=== PATIENT | female | born 2000 | race Caucasian/White ===

== ENCOUNTER 2020-07-16 13:14 | Emergency (ER) | payer OTHER ==
[~2020-07-16] VITALS: Ht 162.6 cm; Wt 56.0 kg
[~2020-07-16 13:14] MED LIST: AMOX500T PO; BUPR75TA5; CIPR-249 PO; CYPR4TA PO; ESCI10TA16 PO; FLAG500T PO; ISIB1TAB; KETO10TAB PO; LEVONOR/ETHI; LEVONOR/ETHI PO; MACR100C43 PO; NAPR-837 PO; NAPR-885; OMEP-218; PREN29TA4 PO; PYRI1TAB5 PO; REGL10TA6 PO; ROBA500T PO; SIME180C25 PO; SPIN1SUS EX; TRI-TAB PO
[2020-07-16 13:15] VITALS: BP 126/74
[2020-07-16] MEDS ORDERED: HYDR50TA70 (13:21)
[2020-07-16] MEDS ORDERED: ACETAMINOPHEN 500 MG TAB PO ONE (15:05)
[2020-07-16 15:22] LABS: BASO # 0.1 10^3/uL (0.0-0.2); BASO % 0.7 % (0.0-1.0); EOS # 0.3 10^3/uL (0.0-0.5); EOS % 3.4 % (0.0-3.0); HEMATOCRIT 45.7 % (36.0-47.0); HEMOGLOBIN 15.1 g/dl (12.0-15.5); LYMPH # 1.7 10^3/uL (1.5-5.0); LYMPH % 23.7 % (24.0-44.0); MEAN CORPUSCULAR HEMOGLOBIN 29.4 pg (27.0-33.0); MEAN CORPUSCULAR VOLUME 89.1 fl (80.0-96.0); MONO # 0.5 10^3/uL (0.0-0.8); MONO % 6.7 % (2.0-8.0); NEUTROPHILS # 4.8 10^3/uL (1.5-8.5); NEUTROPHILS % 65.2 % (36.0-66.0); PLATELET COUNT, AUTOMATED 301 10^3/uL (150-450); RED BLOOD COUNT 5.13 10^6/uL (4.00-5.40); WHITE BLOOD COUNT 7.3 10^3/uL (4.0-10.0)
[2020-07-16 15:25] LABS: ALBUMIN 4.4 GM/DL (3.2-5.2); ALT/SGPT 15 U/L (12-78); BILIRUBIN,DIRECT 0.1 MG/DL (0.0-0.2); BILIRUBIN,TOTAL 0.7 MG/DL (0.2-1.0); LIPASE 82 U/L (73-393); TOTAL PROTEIN 7.6 GM/DL (6.4-8.2)
--- NOTE | 2020-07-16 15:27 | REP ---
INDICATION: suprapubic abd pain COMPARISON: None. TECHNIQUE: Supine view of the abdomen and pelvis. FINDINGS: Bowel gas pattern is nonspecific and without obstruction or perforation. No organomegaly. No abnormal calcifications. Skeletal structures intact. IMPRESSION: Normal abdominal radiograph. <Electronically signed by Sami Alfredo > 07/16/20 1522
[2020-07-16 16:24] LABS: BLOOD UREA NITROGEN 15 MG/DL (7-18); CARBON DIOXIDE LEVEL 26 MEQ/L (21-32); CHLORIDE LEVEL 106 MEQ/L (98-107); CREATININE FOR GFR 0.79 MG/DL (0.55-1.30); GLUCOSE, FASTING 91 MG/DL (70-100); SODIUM LEVEL 140 MEQ/L (136-145)
[2020-07-16 16:53] LABS: CHLAMYDIA DNA AMPLIFICATION NEGATIVE (NEGATIVE); GC DNA AMPLIFICATION NEGATIVE (NEGATIVE)
--- NOTE | 2020-07-16 16:57 | REP ---
INDICATION: lower abd/pelvic pain COMPARISON: None. TECHNIQUE: Transabdominal pelvic ultrasound with color Doppler evaluation of the ovaries. FINDINGS: Bladder is collapsed and currently measures 5.9 x 1.7 x 2.6 cm Normal anteverted uterus measures 6.6 x 3.5 x 4.9 cm. The endometrial complex measures 5.8 mm thickness. No discrete uterine or endometrial abnormalities are appreciated. Bilateral ovaries are normal in appearance and vascularity without evidence for torsion. Right ovary measures 1.8 x 3.1 x 1.9 cm; R I = 0.54. Left ovary measures 1.9 x 1.5 x 1.6 cm; R I = 0.53. No pelvic fluid or adnexal mass lesion IMPRESSION: Normal pelvic ultrasound <Electronically signed by Sami Alfredo > 07/16/20 [id number]
== END 2020-07-16 17:31 | disposition home or self-care (01) ==
LOC: MERGE 13:14 → M ED 13:14
DX: R10.9 Unspecified abdominal pain (principal); R31.29 Other microscopic hematuria; F17.200 Nicotine dependence, unspecified, uncomplicated; Z86.19 Personal history of other infectious and parasitic diseases

== ENCOUNTER 2020-07-24 00:43 | Emergency (ER) | payer OTHER ==
[~2020-07-24] VITALS: Ht 162.6 cm; Wt 55.9 kg
[~2020-07-24 00:43] MED LIST changes: +HYDR50TA70
[2020-07-24] MEDS ORDERED: CEFD1CAP8 (01:06)
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
[2020-07-24 03:51] VITALS: BP 143/85
== END 2020-07-24 03:56 | disposition home or self-care (01) ==
LOC: M ED 00:43
DX: R51.9 Headache, unspecified (principal); M54.5 Low back pain; Y04.8XXA Assault by other bodily force, initial encounter; Y92.410 Unspecified street and highway as the place of occurrence of the external cause; F17.210 Nicotine dependence, cigarettes, uncomplicated; F12.20 Cannabis dependence, uncomplicated

== ENCOUNTER 2020-08-09 17:39 | Emergency (ER) | payer OTHER ==
[~2020-08-09] VITALS: Ht 162.6 cm; Wt 55.3 kg
[~2020-08-09 17:39] MED LIST changes: +CEFD1CAP8
[2020-08-09] MEDS ORDERED: ONDANSETRON 4 MG ORAL DISINTEGRATING TAB PO ONE (19:20)
[2020-08-09] MEDS ORDERED: ACETAMINOPHEN 325 MG TAB PO ONE (19:20)
[2020-08-09 19:39] LABS: BASO % 0.4 % (0.0-1.0); EOS # 0.2 10^3/uL (0.0-0.5); HEMATOCRIT 40.5 % (36.0-47.0); HEMOGLOBIN 12.9 g/dl (12.0-15.5); LYMPH # 1.6 10^3/uL (1.5-5.0); LYMPH % 20.9 % (24.0-44.0); MEAN CORPUSCULAR HEMOGLOBIN 29.3 pg (27.0-33.0); MEAN CORPUSCULAR HGB CONC 31.9 g/dl (32.0-36.5); MONO # 0.4 10^3/uL (0.0-0.8); MONO % 4.8 % (2.0-8.0); NEUTROPHILS # 5.4 10^3/uL (1.5-8.5); NEUTROPHILS % 71.5 % (36.0-66.0); PLATELET COUNT, AUTOMATED 262 10^3/uL (150-450); WHITE BLOOD COUNT 7.6 10^3/uL (4.0-10.0)
[2020-08-09 20:09] LABS: ALBUMIN 4.1 GM/DL (3.2-5.2); ALT/SGPT 15 U/L (12-78); BILIRUBIN,DIRECT 0.2 MG/DL (0.0-0.2); BILIRUBIN,TOTAL 0.6 MG/DL (0.2-1.0); TOTAL PROTEIN 6.8 GM/DL (6.4-8.2)
[2020-08-09] MEDS ORDERED: KETOROLAC TROMETHAMINE 10 MG TAB PO ONE (20:35)
[2020-08-09 20:36] LABS: CHLAMYDIA DNA AMPLIFICATION NEGATIVE (NEGATIVE); GC DNA AMPLIFICATION NEGATIVE (NEGATIVE)
[2020-08-09] MEDS ORDERED: diphenhydrAMINE 25MG CAP PO ONE (20:45)
--- NOTE | 2020-08-09 21:36 | REPVR ---
PROCEDURE INFORMATION: Exam: US Nonobstetric Pelvis; Complete Exam date and time: 08/09/2020 9:16 PM Age: 19 years old Clinical indication: Pelvic pain; Additional info: Abdominal pain pelvic/hx ovarian cysts TECHNIQUE: Imaging protocol: Transabdominal pelvic nonobstetric ultrasound. Complete exam. Real time ultrasound with image documentation. COMPARISON: US PELVIC NON-OB COMPLETE 07/16/2020 4:38 PM FINDINGS: Uterus/cervix: Uterus measures 7.5 x 3.5 x 3.5 cm. Endometrial echo complex measures 2.5 mm. Right adnexa: Right ovary measures 3.4 x 1.9 x 2.7 cm. Normal flow. Left adnexa: Left ovary measures 2.1 x 1.2 x 1.4 cm. Normal flow. Intraperitoneal space: No intraperitoneal fluid. Urinary bladder: Normal. IMPRESSION: Normal study. Electronically signed by: Francisco Tafoya On 08/09/2020 21:36:22 PM
[2020-08-09] MEDS ORDERED: ONDA4TAB6 PO (22:13)
[2020-08-09] MEDS ORDERED: KETO10TAB PO (22:13)
[2020-08-09 22:19] VITALS: BP 129/74
== END 2020-08-09 22:21 | disposition home or self-care (01) ==
LOC: M ED 17:39
DX: G43.909 Migraine, unspecified, not intractable, without status migrainosus (principal); N93.8 Other specified abnormal uterine and vaginal bleeding; F12.20 Cannabis dependence, uncomplicated; Z77.098 Contact with and (suspected) exposure to other hazardous, chiefly nonmedicinal, chemicals
CPT/HCPCS: 36415; 76856; 80047; 80076; 81001; 84702; 85025; 86780; 87210; 87661; 99284; Q0162

== ENCOUNTER 2020-08-16 17:33 | Emergency (ER) | payer OTHER ==
[~2020-08-16] VITALS: Ht 162.6 cm; Wt 56.8 kg
[~2020-08-16 17:33] MED LIST changes: +ONDA4TAB6 PO
[2020-08-16] MEDS ORDERED: METR-265 (18:00)
[2020-08-16 20:35] LABS: BASO % 0.4 % (0.0-1.0); EOS # 0.3 10^3/uL (0.0-0.5); EOS % 3.9 % (0.0-3.0); HEMATOCRIT 43.3 % (36.0-47.0); HEMOGLOBIN 13.7 g/dl (12.0-15.5); LYMPH % 29.3 % (24.0-44.0); MEAN CORPUSCULAR HEMOGLOBIN 29.5 pg (27.0-33.0); MEAN CORPUSCULAR HGB CONC 31.6 g/dl (32.0-36.5); MEAN CORPUSCULAR VOLUME 93.3 fl (80.0-96.0); MONO # 0.4 10^3/uL (0.0-0.8); MONO % 6.2 % (2.0-8.0); NEUTROPHILS # 4.2 10^3/uL (1.5-8.5); NEUTROPHILS % 59.9 % (36.0-66.0); PLATELET COUNT, AUTOMATED 242 10^3/uL (150-450); RED BLOOD COUNT 4.64 10^6/uL (4.00-5.40); WHITE BLOOD COUNT 6.9 10^3/uL (4.0-10.0)
[2020-08-16 21:06] LABS: ALBUMIN 4.2 GM/DL (3.2-5.2); ALT/SGPT 14 U/L (12-78); BILIRUBIN,TOTAL 0.5 MG/DL (0.2-1.0); BLOOD UREA NITROGEN 10 MG/DL (7-18); CALCIUM LEVEL 9.4 MG/DL (8.5-10.1); CARBON DIOXIDE LEVEL 29 MEQ/L (21-32); CHLORIDE LEVEL 109 MEQ/L (98-107); CREATININE FOR GFR 0.63 MG/DL (0.55-1.30); GLUCOSE, FASTING 83 MG/DL (70-100); POTASSIUM SERUM 4.4 MEQ/L (3.5-5.1); SODIUM LEVEL 142 MEQ/L (136-145); TOTAL PROTEIN 7.1 GM/DL (6.4-8.2)
[2020-08-16 21:07] LABS: HCG, SERUM QUALITATIVE NEGATIVE (NEGATIVE)
[2020-08-16 22:00] VITALS: BP 131/77
[2020-08-16 22:06] LABS: INR 1.03; PROTHROMBIN TIME 13.7 SECONDS (12.5-14.3)
[2020-08-16 22:07] LABS: PARTIAL THROMBOPLASTIN TIME 26.9 SECONDS (24.2-38.5)
[2020-08-16 22:10] LABS: D-DIMER QUANT < 270 ng/ml (<500)
[2020-08-16 22:26] LABS: AMPHETAMINES LEVEL URINE NEGATIVE (NEGATIVE); BARBITURATES URINE NEGATIVE (NEGATIVE); BENZODIAZEPINES URINE NEGATIVE (NEGATIVE); CANNABINOIDS URINE POSITIVE (NEGATIVE); COCAINE METABOLITE URINE NEGATIVE (NEGATIVE); METHADONE URINE NEGATIVE (NEGATIVE); OPIATES URINE NEGATIVE (NEGATIVE); PHENCYCLIDINE URINE NEGATIVE (NEGATIVE)
[2020-08-16 22:30] LABS: CK-MB VALUE MASS < 1.0 NG/ML (<3.6); CPK CREATINE PHOSPHOKINASE 31 U/L (26-192); MAGNESIUM LEVEL 1.7 MG/DL (1.8-2.4); MB/CK RELATIVE INDEX 3.23 (< OR =4); TROPONIN I < 0.02 NG/ML (< 0.10)
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
--- NOTE | 2020-08-18 07:41 | ECGEPIP ---
[facility] - ED Test Date: 2020-08-16 Pat Name: BRIANNE GALAN Department: Room: - Gender: Female [employer]: : [id number] Requested By: RENITA SELF PA-C Order Number: [id number] Reading MD: Ayden Umana Measurements Intervals Bly Rate: 47 P: 63 MD: 132 QRS: 56 QRSD: 90 T: 54 QT: 444 QTc: 392 Interpretive Statements Sinus bradycardia NO PRIORS FOR COMPARISON Electronically Signed on 08-18-2020 7:40:54 EDT by Ayden Umana
== END 2020-08-16 23:08 | disposition home or self-care (01) ==
LOC: M ED 17:33
DX: R55 Syncope and collapse (principal); F17.200 Nicotine dependence, unspecified, uncomplicated; F12.10 Cannabis abuse, uncomplicated

== ENCOUNTER → 2021-01-01 | Outpatient (REF) | payer OTHER ==
[~2021-01-01] MED LIST changes: +METR-265
[2021-01-01 22:11] LABS: HCG, SERUM QUANTITATIVE < 1.0 MIU/ML
[2021-01-01 22:13] LABS: HCG, SERUM QUALITATIVE NEGATIVE (NEGATIVE)
== END ==
LOC: M LAB REF 21:34
PROVIDERS: ATTEND Physician Assistant
DX: Z32.00 Encounter for pregnancy test, result unknown (principal)

== ENCOUNTER 2021-01-25 19:25 | Emergency (ER) | payer OTHER ==
[~2021-01-25] VITALS: Ht 162.6 cm; Wt 50.6 kg
--- OUTSIDE RECORDS SUMMARY | 2021-01-25 19:42 | CCD ---
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 recorded. Surgeries None recorded. Imaging None recorded. Vitals 09/18/2020 01:40PM TELEHEALTH 20 Height 64 in 08/19/2020 02:00PM SAME DAY 20 Height Weight BMI Blood Pressure 64 in 121 lbs 8 oz 20.9 kg/m2 106/69 mm[Hg] 06/27/2020 01:20PM ESTABLISHED [id number] Height Weight BMI Blood Pressure 64 in 279 lbs 16 oz 48.1 kg/m2 108/57 mm[Hg] 05/24/2020 01:40PM TELEHEALTH 20 Height 64 in 04/16/2020 01:50PM TELEHEALTH 20 Height 64 in 03/15/2020 02:00PM ESTABLISHED [id number] Height Weight BMI Blood Pressure 64 in 132 lbs 8 oz 22.7 kg/m2 115/74 mm[Hg] 02/01/2020 10:40AM ANNUAL EXAM Height Weight BMI Blood Pressure 64 in 133 lbs 9.6 oz 22.9 kg/m2 113/76 mm[Hg ]
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
--- OUTSIDE RECORDS SUMMARY | 2021-01-25 19:47 | CCD ---
Author Author [facility] Organization [facility] Address Unknown Phone Unavailable Support Name Relationship Address Phone YOVANNY OSBORNE Next Of Kin Unknown SHELLI SHAW Next Of Kin [id number] [place] [address] IESHA HARVEY Next Of [address] [place] [address] ANGELA STORY Next Of [address] [place] [address] IN[place] MOUND Next Of [address] [facility] [address] [place] [address] [place] Next [place] Kin [address] [place] [address] Laura Whatley Next Of Kin [address] [phone] UE Next Of Kin Unknown Unavailable ANGELA GALAN Next Of Kin [address] [phone] Evie Whatley Next Of Kin [address] [phone] [facility] Next Of Kin [address] [place] [address] [facility] Next Of Kin [address] [facility] [place] [address] Next Of Kin Unknown Unavailable CARA WALLS Next Of Kin [address] [place] [address] ANGELA GALAN ECON [address] [place] [address] Unavailable IESHA HARVEY ECON [address] [phone] Unavailable Brunson Cara ECON [address] [place] [address] [phone] Hai Whatley ECON [address] [place] [address] Care Team Providers Care Retention Manager Name Role Phone NO, PCP Unavailable Unavailable Bon Air, J Pham PA Unavailable Unavailable Bon Air, J Pham PA Unavailable Unavailable Bon Air, J Pham PA Unavailable Unavailable Bon Air, J Pham PA Unavailable Unavailable Bon Air, J Pham PA Unavailable Unavailable Bon Air, J Pham PA Unavailable Unavailable Bon Air, J Pham PA Unavailable Unavailable Bon Air, J Pham PA Unavailable Unavailable Bon Air, J Pham PA Unavailable Unavailable Bon Air, J Pham PA Unavailable Unavailable Bon Air, J Pham PA Unavailable Unavailable Bon Air, J Pham PA Unavailable Unavailable Bon Air, J Pham PA Unavailable Unavailable Bon Air, J Pham PA Unavailable Unavailable Bon Air, J Pham PA Unavailable Unavailable Bon Air, J Pham PA Unavailable Unavailable Bon Air, J Pham PA Unavailable Unavailable Bon Air, J Pham PA Unavailable Unavailable Bon Air, J Pham PA Unavailable Unavailable Bon Air, J Pham PA Unavailable Unavailable Bon Air, J Pham PA Unavailable Unavailable Bon Air, J Pham PA Unavailable Unavailable Heidi Head Unavailable [phone] Green MORTGAGE LOAN COUNSELOR MORTGAGE LOAN COUNSELOR, Vikki Unavailable Unavailable Green MORTGAGE LOAN COUNSELOR MORTGAGE LOAN COUNSELOR, Vikki Unavailable Unavailable Green MORTGAGE LOAN COUNSELOR MORTGAGE LOAN COUNSELOR, Vikki Unavailable Unavailable Green MORTGAGE LOAN COUNSELOR MORTGAGE LOAN COUNSELOR, Vikki Unavailable Unavailable Green MORTGAGE LOAN COUNSELOR MORTGAGE LOAN COUNSELOR, Vikki Unavailable Unavailable Jeffrey Moore MD Unavailable Unavailable Jeffrey Moore MD Unavailable Unavailable Jeffrey Moore MD Unavailable Unavailable Jeffrey Moore MD Unavailable Unavailable Jeffrey Moore MD Unavailable Unavailable Jeffrey Moore MD Unavailable Unavailable Jeffrey Moore MD Unavailable Unavailable Jeffrey Moore MD Unavailable Unavailable Jeffrey Moore MD Unavailable Unavailable Jeffrey Moore MD Unavailable Unavailable Jeffrey Moore MD Unavailable Unavailable Jeffrey Moore MD Unavailable Unavailable Jeffrey Moore MD Unavailable Unavailable Jeffrey Moore MD Unavailable Unavailable Jeffrey Moore MD Unavailable Unavailable Jeffrey Moore MD Unavailable Unavailable Jeffrey Moore MD Unavailable Unavailable Jeffrey Moore MD Unavailable Unavailable Jeffrey Moore MD Unavailable Unavailable Jeffrey Moore MD Unavailable Unavailable Jeffrey Moore MD Unavailable Unavailable Oscar, Jeffrey Kay MD Unavailable Unavailable Oscar, Jeffrey Kay MD Unavailable Unavailable Oscar, Jeffrey Kay MD Unavailable Unavailable Oscar, Jeffrey Kay MD Unavailable Unavailable Oscar, Jeffrey Kay MD Unavailable Unavailable Oscar, Jeffrey Kay MD Unavailable Unavailable Oscar, Jeffrey Kay MD Unavailable Unavailable Oscar, Jeffrey Kay MD Unavailable Unavailable Oscar, Jeffrey Kay MD Unavailable Unavailable Oscar, Jeffrey Kay MD Unavailable Unavailable Oscar, Jeffrey Kay MD Unavailable Unavailable Oscar, Jeffrey Kay MD Unavailable Unavailable Oscar, Jeffrey Kay MD Unavailable Unavailable Oscar, Jeffrey Kay MD Unavailable Unavailable Oscar, Jeffrey Kay MD Unavailable Unavailable Oscar, Jeffrey Kay MD Unavailable Unavailable Oscar, Jeffrey Kay MD Unavailable Unavailable Oscar, Jeffrey Kay MD Unavailable Unavailable Oscar, Jeffrey Kay MD Unavailable Unavailable Oscar, Jeffrey Kay MD Unavailable Unavailable Oscar, A Eliza JONES Unavailable Unavailable Oscar, A Eliza JONES Unavailable Unavailable Oscar, Jeffrey Kay MD Unavailable Unavailable Oscar, Jeffrey Kay MD Unavailable Unavailable Oscar, Jeffrey Kay MD Unavailable Unavailable Oscar, Jeffrey Kay MD Unavailable Unavailable Oscar, Jeffrey Kay MD Unavailable Unavailable Oscar, A Eliza JONES Unavailable Unavailable Oscar, A Eliza JONES Unavailable Unavailable Oscar, Jeffrey Kay MD Unavailable Unavailable Oscar, Jeffrey Kay MD Unavailable Unavailable Oscar, Jeffrey Kay MD Unavailable Unavailable Oscar, Jeffrey Kay MD Unavailable Unavailable Oscar, Jeffrey Kay MD Unavailable Unavailable Oscar, Jeffrey Kay MD Unavailable Unavailable Oscar, A Eliza JONES Unavailable Unavailable Oscar, A Eliza JONES Unavailable Unavailable Oscar, Jeffrey Kay MD Unavailable Unavailable Oscar, Jeffrey Kay MD Unavailable Unavailable Oscar, Jeffrey Kay MD Unavailable Unavailable Oscar, Jeffrey Kay MD Unavailable Unavailable Oscar, Jeffrey Kay MD Unavailable Unavailable Oscar, Jeffrey Kay MD Unavailable Unavailable Oscar, Jeffrey Kay MD Unavailable Unavailable Oscar, Jeffrey Kay MD Unavailable Unavailable Oscar, Jeffrey Kay MD Unavailable Unavailable Oscar, Jeffrey Kay MD Unavailable Unavailable Oscar, Jeffrey Kay MD Unavailable Unavailable Oscar, Jeffrey Kay MD Unavailable Unavailable Oscar, Jeffrey Kay MD Unavailable Unavailable Oscar, Jeffrey Kay MD Unavailable Unavailable Oscar, Jeffrey Kay MD Unavailable Unavailable Oscar, Jeffrey Kay MD Unavailable Unavailable Oscar, Jeffrey Kay MD Unavailable Unavailable Oscar, Jeffrey Kay MD Unavailable Unavailable Oscar, Jeffrey Kay MD Unavailable Unavailable Oscar, Jeffrey Kay MD Unavailable Unavailable Oscar, Jeffrey Kay MD Unavailable Unavailable Oscar, Jeffrey Kay MD Unavailable Unavailable Oscar, Jeffrey Kay MD Unavailable Unavailable Oscar, Jeffrey Kay MD Unavailable Unavailable VENEAmaris CHRISTIAN MD Unavailable Unavailable VENEGINO, Amaris JUAREZ MD Unavailable Unavailable Amaris WATERMAN MD Unavailable Unavailable Amaris WATERMAN MD Unavailable Unavailable Amaris WATERMAN MD Unavailable Unavailable Amaris WATERMAN MD Unavailable Unavailable Amaris WATERMAN MD Unavailable Unavailable Amaris WATERMAN MD Unavailable Unavailable Amaris WATERMAN MD Unavailable Unavailable Scordo, M Kassie PA Unavailable Unavailable Scordo, M Kassie PA Unavailable Unavailable Scordo, M Kassie PA Unavailable Unavailable Scordo, M Kassie PA Unavailable Unavailable Scordo, M Kassie PA Unavailable Unavailable Scordo, M Kassie PA Unavailable Unavailable Scordo, M Kassie PA Unavailable Unavailable Scordo, M Kassie PA Unavailable Unavailable Scordo, M Kassie PA Unavailable Unavailable Scordo, M Kassie PA Unavailable Unavailable Scordo, M Kassie PA Unavailable Unavailable Scordo, M Kassie PA Unavailable Unavailable Scordo, M Kassie PA Unavailable Unavailable Scordo, M Kassie PA Unavailable Unavailable Scordo, M Kassie PA Unavailable Unavailable Scordo, M Kassie PA Unavailable Unavailable Scordo, M Kassie PA Unavailable Unavailable Scordo, M Kassie PA Unavailable Unavailable Scordo, M Kassie PA Unavailable Unavailable Scordo, M Kassie PA Unavailable Unavailable Scordo, M Kassie PA Unavailable Unavailable Scordo, M Kassie PA Unavailable Unavailable Scordo, M Kassie PA Unavailable Unavailable Scordo, M Kassie PA Unavailable Unavailable Scordo, M Kassie PA Unavailable Unavailable Scordo, M Kassie PA Unavailable Unavailable Scordo, M Kassie PA Unavailable Unavailable Scordo, M Kassie PA Unavailable Unavailable Scordo, M Kassie PA Unavailable Unavailable Scordo, M Kassie PA Unavailable Unavailable Scordo, M Kassie PA Unavailable Unavailable Scordo, M Kassie PA Unavailable Unavailable Scordo, M Kassie PA Unavailable Unavailable Scordo, M Kassie PA Unavailable Unavailable Scordo, M Kassie PA Unavailable Unavailable Scordo, M Kassie PA Unavailable Unavailable Scordo, M Kassie PA Unavailable Unavailable Scordo, M Kassie PA Unavailable Unavailable Scordo, M Kassie PA Unavailable Unavailable Scordo, M Kassie PA Unavailable Unavailable Scordo, M Kassie PA Unavailable Unavailable Scordo, M Kassie PA Unavailable Unavailable Scordo, M Kassie PA Unavailable Unavailable Scordo, M Kassie PA Unavailable Unavailable Scordo, M Kassie PA Unavailable Unavailable Scordo, M Kassie PA Unavailable Unavailable Scordo, M Kassie PA Unavailable Unavailable TABITHA, MAQBOOL STEVEN MD Unavailable Unavailable TABITHA, MAQBOOL STEVEN MD Unavailable Unavailable TABITHA, MAQBOOL STEVEN MD Unavailable Unavailable TABITHA, MAQBOOL STEVEN MD Unavailable Unavailable TABITHA, MAQBOOL STEVEN MD Unavailable Unavailable TABITHA, MAQBOOL STEVEN MD Unavailable Unavailable TABITHA, MAQBOOL STEVEN MD Unavailable Unavailable TABITHA, MAQBOOL STEVEN MD Unavailable Unavailable TABITHA, MAQBOOL STEVEN MD Unavailable Unavailable TABITHA, MAQBOOL STEVEN MD Unavailable Unavailable TABITHA, MAQBOOL STEVEN MD Unavailable Unavailable TABITHA, MAQBOOL STEVEN MD Unavailable Unavailable TABITHA, MAQBOOL STEVEN MD Unavailable Unavailable TABITHA, MAQBOOL STEVEN MD Unavailable Unavailable TABITHA, MAQBOOL STEVEN MD Unavailable Unavailable TABITHA, MAQBOOL STEVEN MD Unavailable Unavailable TABITHA, MAQBOOL STEVEN MD Unavailable Unavailable TABITHA, MAQBOOL STEVEN MD Unavailable Unavailable TABITHA, MAQBOOL STEVEN MD Unavailable Unavailable TABITHA, MAQBOOL STEVEN MD Unavailable Unavailable TABITHA, MAQBOOL STEVEN MD Unavailable Unavailable TABITHA, MAQBOOL STEVEN MD Unavailable Unavailable TABITHA, MAQBOOL STEVEN MD Unavailable Unavailable TABITHA, MAQBOOL STEVEN MD Unavailable Unavailable TABITHA, MAQBOOL STEVEN MD Unavailable Unavailable TABITHA, MAQBOOL STEVEN MD Unavailable Unavailable TABITHA, MAQBOOL STEVEN MD Unavailable Unavailable TABITHA, MAQBOOL STEVEN MD Unavailable Unavailable TABITHA, MAQBOOL STEVEN MD Unavailable Unavailable TABITHA, MAQBOOL STEVEN MD Unavailable Unavailable TABITHA, MAQBOOL STEVEN MD Unavailable Unavailable TABITHA, MAQBOOL STEVEN MD Unavailable Unavailable TABITHA, MAQBOOL STEVEN MD Unavailable Unavailable TABITHA, MAQBOOL STEVEN MD Unavailable Unavailable TABITHA, MAQBOOL STEVEN MD Unavailable Unavailable TABITHA, MAQBOOL STEVEN MD Unavailable Unavailable TABITHA, MAQBOOL STEVEN MD Unavailable Unavailable TABITHA, MAQBOOL STEVEN MD Unavailable Unavailable TABITHA, MAQBOOL STEVEN MD Unavailable Unavailable TABITHA, MAQBOOL STEVEN MD Unavailable Unavailable TABITHA, MAQBOOL STEVEN MD Unavailable Unavailable TABITHA, MAQBOOL STEVEN MD Unavailable Unavailable TABITHA, MAQBOOL STEVEN MD Unavailable Unavailable TABITHA, MAQBOOL STEVEN MD Unavailable Unavailable TABITHA, MAQBOOL STEVEN MD Unavailable Unavailable TABITHA, MAQBOOL STEVEN MD Unavailable Unavailable TABITHA, MAQBOOL STEVEN MD Unavailable Unavailable TABITHA, MAQBOOL STEVEN MD Unavailable Unavailable TABITHA, MAQBOOL STEVEN MD Unavailable Unavailable TABITHA, MAQBOOL STEVEN MD Unavailable Unavailable TABITHA, MAQBOOL STEVEN MD Unavailable Unavailable TABITHA, MAQBOOL STEVEN MD Unavailable Unavailable TABITHA, MAQBOOL STEVEN MD Unavailable Unavailable TABITHA, MAQBOOL STEVEN MD Unavailable Unavailable TABITHA, MAQBOOL STEVEN MD Unavailable Unavailable TABITHA, MAQBOOL STEVEN MD Unavailable Unavailable TABITHA, MAQBOOL STEVEN MD Unavailable Unavailable TABITHA, MAQBOOL STEVEN MD Unavailable Unavailable TABITHA, MAQBOOL STEVEN MD Unavailable Unavailable TABITHA, MAQBOOL STEVEN MD Unavailable Unavailable TABITHA, MAQBOOL STEVEN MD Unavailable Unavailable TABITHA, MAQBOOL STEVEN MD Unavailable Unavailable TABITHA, MAQBOOL STEVEN MD Unavailable Unavailable TABITHA, MAQBOOL STEVEN MD Unavailable Unavailable TABITHA, MAQBOOL STEVEN MD Unavailable Unavailable TABITHA, MAQBOOL STEVEN MD Unavailable Unavailable TABITHA, MAQBOOL STEVEN MD Unavailable Unavailable TABITHA, MAQBOOL STEVEN MD Unavailable Unavailable TABITHA, MAQBOOL STEVEN MD Unavailable Unavailable TABITHA, MAQBOOL STEVEN MD Unavailable Unavailable TABITHA, MAQBOOL STEVEN MD Unavailable Unavailable TABITHA, MAQBOOL STEVEN MD Unavailable Unavailable TABITHA, MAQBOOL STEVEN MD Unavailable Unavailable ROEL OLIVARES MD Unavailable Unavailable ROEL OLIVARES MD Unavailable Unavailable ROEL OLIVARES MD Unavailable Unavailable ROEL OLIVARES MD Unavailable Unavailable ROEL OLIVARES MD Unavailable Unavailable SALVADORSam AYOUB MD Unavailable Unavailable SALVADORSam AYOUB MD Unavailable Unavailable SALVADOR, Sam MIKE MD Unavailable Unavailable SALVADOR, Sam MIKE MD Unavailable Unavailable SALVADOR, Sam MIKE MD Unavailable Unavailable SALVADOR, L MAIRA MD Unavailable Unavailable SALVADOR, L MAIRA MD Unavailable Unavailable SALVADOR, L MAIRA MD Unavailable Unavailable SALVADOR, L MAIRA MD Unavailable Unavailable SALVADOR, L MAIRA MD Unavailable Unavailable SALVADOR, L MAIRA MD Unavailable Unavailable SALVADOR, L MAIRA MD Unavailable Unavailable SALVADOR, L MAIRA MD Unavailable Unavailable SALVADOR, Sam MIKE MD Unavailable Unavailable SALVADOR, L MAIRA MD Unavailable Unavailable SALVADOR, L MAIRA MD Unavailable Unavailable SALVADOR, L MAIRA MD Unavailable Unavailable SALVADOR, Sam MIKE MD Unavailable Unavailable SALVADOR, L MAIRA MD Unavailable Unavailable SALVADOR, L MAIRA MD Unavailable Unavailable Feola, T Darlene PA Unavailable Unavailable Feola, T Darlene PA Unavailable Unavailable Feola, T Darlene PA Unavailable Unavailable Feola, T Darlene PA Unavailable Unavailable Feola, T Darlene PA Unavailable Unavailable Feola, T Darlene PA Unavailable Unavailable Feola, T Darlene PA Unavailable Unavailable Feola, T Darlene PA Unavailable Unavailable Feola, T Darlene PA Unavailable Unavailable Feola, T Darlene PA Unavailable Unavailable Feola, T Darlene PA Unavailable Unavailable Feola, T Darlene PA Unavailable Unavailable Feola, T Darlene PA Unavailable Unavailable Feola, T Darlene PA Unavailable Unavailable Feola, T Darlene PA Unavailable Unavailable Feola, T Darlene PA Unavailable Unavailable Feola, T Darlene PA Unavailable Unavailable Feola, T Darlene PA Unavailable Unavailable Feola, T Darlene PA Unavailable Unavailable Feola, T Darlene PA Unavailable Unavailable Feola, T Darlene PA Unavailable Unavailable Feola, T Darlene PA Unavailable Unavailable Feola, T Darlene PA Unavailable Unavailable Feola, T Darlene PA Unavailable Unavailable Feola, T Darlene PA Unavailable Unavailable Feola, T Darlene PA Unavailable Unavailable Feola, T Darlene PA Unavailable Unavailable Feola, T Darlene PA Unavailable Unavailable Feola, T Darlene PA Unavailable Unavailable Feola, T Darlene PA Unavailable Unavailable Feola, T Darlene PA Unavailable Unavailable Feola, T Darlene PA Unavailable Unavailable Feola, T Darlene PA Unavailable Unavailable Feola, T Darlene PA Unavailable Unavailable Feola, T Darlene PA Unavailable Unavailable Feola, T Darlene PA Unavailable Unavailable Feola, T Darlene PA Unavailable Unavailable Feola, T Darlene PA Unavailable Unavailable Feola, T Darlene PA Unavailable Unavailable Feola, T Darlene PA Unavailable Unavailable Feola, T Darlene PA Unavailable Unavailable Dwello PA PA, Phuong Unavailable Unavailable Dwello PA PA, Phuong Unavailable Unavailable Dwello PA PA, Phuong Unavailable Unavailable Dwello PA PA, Phuong Unavailable Unavailable Dwello PA PA, Phuong Unavailable Unavailable Dwello PA PA, Phuong Unavailable Unavailable Dwello PA PA, Phuong Unavailable Unavailable Scordo, M Kassie PA Unavailable Unavailable Scordo, M Kassie PA Unavailable Unavailable Scordo, M Kassie PA Unavailable Unavailable Scordo, M Kassie PA Unavailable Unavailable Scordo, M Kassie PA Unavailable Unavailable Scordo, M Kassie PA Unavailable Unavailable Scordo, M Kassie PA Unavailable Unavailable Scordo, M Kassie PA Unavailable Unavailable Scordo, M Kassie PA Unavailable Unavailable Scordo, M Kassie PA Unavailable Unavailable Scordo, M Kassie PA Unavailable Unavailable Scordo, M Kassie PA Unavailable Unavailable Scordo, M Kassie PA Unavailable Unavailable Scordo, M Kassie PA Unavailable Unavailable Scordo, M Kassie PA Unavailable Unavailable Scordo, M Kassie PA Unavailable Unavailable Scordo, M Kassie PA Unavailable Unavailable Scordo, M Kassie PA Unavailable Unavailable Scordo, M Kassie PA Unavailable Unavailable Scordo, M Kassie PA Unavailable Unavailable Scordo, M Kassie PA Unavailable Unavailable Scordo, M Kassie PA Unavailable Unavailable Scordo, M Kassie PA Unavailable Unavailable Scordo, M Kassie PA Unavailable Unavailable Scordo, M Kassie PA Unavailable Unavailable Scordo, M Kassie PA Unavailable Unavailable Scordo, M Kassie PA Unavailable Unavailable Scordo, M Kassie PA Unavailable Unavailable Scordo, M Kassie PA Unavailable Unavailable Scordo, M Kassie PA Unavailable Unavailable Scordo, M Kassie PA Unavailable Unavailable Scordo, M Kassie PA Unavailable Unavailable Scordo, M Kassie PA Unavailable Unavailable Scordo, M Kassie PA Unavailable Unavailable Scordo, M Kassie PA Unavailable Unavailable Scordo, M Kassie PA Unavailable Unavailable Scordo, M Kassie PA Unavailable Unavailable Scordo, M Kassie PA Unavailable Unavailable Scordo, M Kassie PA Unavailable Unavailable Scordo, M Kassie PA Unavailable Unavailable Scordo, M Kassie PA Unavailable Unavailable Scordo, M Kassie PA Unavailable Unavailable Scordo, M Kassie PA Unavailable Unavailable Scordo, M Kassie PA Unavailable Unavailable Scordo, M Kassie PA Unavailable Unavailable Scordo, M Kassie PA Unavailable Unavailable Scordo, M Kassie PA Unavailable Unavailable Veley, Donna MORTGAGE LOAN COUNSELOR Unavailable Unavailable Veley, Donna MORTGAGE LOAN COUNSELOR Unavailable Unavailable Veley, Donna MORTGAGE LOAN COUNSELOR Unavailable Unavailable Veley, Donna MORTGAGE LOAN COUNSELOR Unavailable Unavailable Veley, Donna MORTGAGE LOAN COUNSELOR Unavailable Unavailable Veley, Donna MORTGAGE LOAN COUNSELOR Unavailable Unavailable Veley, Donna MORTGAGE LOAN COUNSELOR Unavailable Unavailable Veley, Donna MORTGAGE LOAN COUNSELOR Unavailable Unavailable Veley, Donna MORTGAGE LOAN COUNSELOR Unavailable Unavailable Veley, Donna MORTGAGE LOAN COUNSELOR Unavailable Unavailable Veley, Donna MORTGAGE LOAN COUNSELOR Unavailable Unavailable Veley, Donna MORTGAGE LOAN COUNSELOR Unavailable Unavailable Veley, Donna MORTGAGE LOAN COUNSELOR Unavailable Unavailable Veley, Donna MORTGAGE LOAN COUNSELOR Unavailable Unavailable Veley, Donna MORTGAGE LOAN COUNSELOR Unavailable Unavailable Veley, Donna MORTGAGE LOAN COUNSELOR Unavailable Unavailable Veley, Donna MORTGAGE LOAN COUNSELOR Unavailable Unavailable Veley, Donna MORTGAGE LOAN COUNSELOR Unavailable Unavailable Veley, Donna MORTGAGE LOAN COUNSELOR Unavailable Unavailable Veley, Donna MORTGAGE LOAN COUNSELOR Unavailable Unavailable Veley, Donna MORTGAGE LOAN COUNSELOR Unavailable Unavailable Veley, Donna MORTGAGE LOAN COUNSELOR Unavailable Unavailable Veley, Donna MORTGAGE LOAN COUNSELOR Unavailable Unavailable Veley, Donna MORTGAGE LOAN COUNSELOR Unavailable Unavailable Veley, Donna MORTGAGE LOAN COUNSELOR Unavailable Unavailable Veley, Donna MORTGAGE LOAN COUNSELOR Unavailable Unavailable Veley, Donna MORTGAGE LOAN COUNSELOR Unavailable Unavailable Veley, Donna MORTGAGE LOAN COUNSELOR Unavailable Unavailable Veley, Donna MORTGAGE LOAN COUNSELOR Unavailable Unavailable Veley, Donna MORTGAGE LOAN COUNSELOR Unavailable Unavailable Veley, Donna MORTGAGE LOAN COUNSELOR Unavailable Unavailable Veley, Donna MORTGAGE LOAN COUNSELOR Unavailable Unavailable Veley, Donna MORTGAGE LOAN COUNSELOR Unavailable Unavailable Veley, Donna MORTGAGE LOAN COUNSELOR Unavailable Unavailable Veley, Donna MORTGAGE LOAN COUNSELOR Unavailable Unavailable [place]-Pacheco, Kristy CNM Unavailable Unavailab le Danyelle-Pacheco, Kristy CNM Unavailable Unavailab le [place]-Pacheco, Kristy CNM Unavailable Unavailab le Danyelle-Pacheco, Kristy CNM Unavailable Unavailab le [place]-Pacheco, Kristy CNM Unavailable Unavailab le Danyelle-Pacheco, Kristy CNM Unavailable Unavailab le Re-disclosure Warning The records that you are about to access may contain information from federally-assisted alcohol or drug abuse programs. If such information is present, then the following federally mandated warning applies: This information has been disclosed to you from records protected by federal confidentiality rules (42 CFR part 2). The federal rules prohibit you from making any further disclosure of this information unless further disclosure is expressly permitted by the written consent of the person to whom it pertains or as otherwise permitted by 42 CFR part 2. A general authorization for the release of medical or other information is NOT sufficient for this purpose. The Federal rules restrict any use of the information to criminally investigate or prosecute any alcohol or drug abuse patient.The records that you are about to access may contain highly sensitive health information, the redisclosure of which is protected by Article 27-F of the [facility] Public Health law. If you continue you may have access to information: Regarding HIV / AIDS; Provided by facilities licensed or operated by the [facility] Office of Mental Health; or Provided by the [facility] Office for People With Developmental Disabilities. If such information is present, then the following [facility] mandated warning applies: This information has been disclosed to you from confidential records which are protected by state law. State law prohibits you from making any further disclosure of this information without the specific written consent of the person to whom it pertains, or as otherwise permitted by law. Any unauthorized further disclosure in violation of state law may result in a fine or alf sentence or both. A general authorization for the release of medical or other information is NOT sufficient authorization for further disc losure. Allergies and Adverse Reactions Type Description Substance Reaction Status Data Source(s ) Propensity to adverse reactions NKDA - NO KNOWN DRUG ALLERGI ES NKDA - NO KNOWN DRUG ALLERGIES [facility] Allergy to substance Allergy to substance Allergy to substance [place] ([facility]) Family History Family Member Name Family Member Gender Family Member Status Date o f Status Description Data Source(s) Unknown Female Diagnosis 06/01/2018 12:00:00 AM EST [facility] ([facility]) Unknown Female Diagnosis 11/23/2017 12:00:00 AM EDT [place] Encounters Encounter Providers Location Date Indications Data Source(s ) Heidi Head LMSW: [address] [place] [address], Ph. Attender: Heidi Head [facility] 10/31/2020 12:00:00 AM EDT [facility]) Kassie Frias PA-C: [address], [place] [address], Ph. Attender: Kassie [facility] 10/29/2020 12:00:00 AM EDT [place] ([facility]) Kassie Frias PA-C: [address] [place] [address], Ph. Attender: Kassie [facility] Medical 10/29/2020 12:00:00 AM EDT [place] ([facility]) Heidi Head LMSW: [address], [place] [address], Ph. Attender: Heidi Head [facility] Medical 10/11/2020 12:00:00 AM EDT [place] ([facility]) Heidi Head LMSW: [address] [place] [address], Ph. Attender: Heidi Head [facility] 10/11/2020 12:00:00 AM EDT [place] ([facility]) Heidi Head LMSW: [address], [place] [address], Ph. Attender: Heidi Head [facility] 10/11/2020 12:00:00 AM EDT [place] ([facility]) OFFICE VISIT, ESTOutpatient Attender: Phuong REARDON [facility] [place] 09/23/2020 07:45:00 AM EDT - 09/23/2020 07:45:00 AM EDT Encounter for test, result negativeOther sex counselingEncounter for oth general cnsl and advice on procreation [facility] ([facility]) Encounter for test, result neg ative Other sex counseling Encounter for oth general cnsl and advic e on procreation [facility] [address] [place] [address], Ph. Attender: Heidi Head [facility] 09/23/2020 12:00:00 AM EDT [facility]) Heidi Vazquezcarrillo [facility]: [address] [place] [address], Ph. Attender: Heidi Head [facility] 09/23/2020 12:00:00 AM EDT [facility]) Heidi Head [facility]: [address] [place] [address], Ph. Attender: Heidistephanie Vazquezcarrillo [facility] 09/23/2020 12:00:00 AM EDT [place] ([facility]) Heidi Head [facility]: [address] [place] [address], Ph. Attender: Heidi Head [facility] 09/23/2020 12:00:00 AM EDT [place] ([facility]) Kassie Frias PA-C: [address] [place] [address], Ph. Attender: Kassie REARDON [facility] Medical 09/18/2020 12:00:00 AM EDT [place] ([facility]) Kassie Frias PA-C: [address], [place] [address], Ph. Attender: Kassie REARDON [facility] Medical 09/18/2020 12:00:00 AM EDT [place] ([facility]) Kassie Frias PA-C: [address], [place] [address], Ph. Attender: Kassie REARDON [facility] Medical 09/18/2020 12:00:00 AM EDT [place] ([facility]) Kassie Firas PA-C: [address], [place] [address], Ph. Attender: Kassie REARDON [facility] Medical 09/18/2020 12:00:00 AM EDT [place] ([facility]) Kassie Frias PA-C: [address], [place] [address], Ph. Attender: Kassie REARDON [facility] Medical 09/18/2020 12:00:00 AM EDT [place] ([facility]) Heidi Head LMSW: [address], [place] [address], Ph. Attender: Heidi Head [facility] 08/22/2020 12:00:00 AM EDT [place] ([facility]) Heidi Head LMSW: [address], [place] [address], Ph. Attender: Heidi Head [facility] 08/22/2020 12:00:00 AM EDT [place] ([facility]) Heidi Head LMSW: [address], [place] [address], Ph. Attender: Heidi Head [facility] 08/22/2020 12:00:00 AM EDT [facility]) Heidi Head, [facility]: [address], [place] [address], Ph. Attender: Heidi Head [facility] 08/22/2020 12:00:00 AM EDT [place] ([facility]) [facility] [address], [place] [address], Ph. Attender: Heidi Head [facility] 08/22/2020 12:00:00 AM EDT [facility]) [facility] [address], [place] [address], Ph. Attender: Heidi Head [facility] 08/22/2020 12:00:00 AM EDT [place] ([facility]) [facility] [address], [place] [address], Ph. Attender: Heidi Head [facility] 08/22/2020 12:00:00 AM EDT [place] ([facility]) Kassie Frias PA-C: [address], [place] [address], Ph. Attender: Kassie REARDON [facility] Medical 08/19/2020 12:00:00 AM EDT [place] ([facility]) Kassie Frias PA-C: [address], [place] [address], Ph. Attender: Kassie REARDON [place] [facility] Medical 08/19/2020 12:00:00 AM EDT [place] ([facility]) Kassie Frias PA-C: [address], [place] [address], Ph. Attender: Kassie REARDON [facility] Medical 08/19/2020 12:00:00 AM EDT [place] ([facility]) Kassie Frias PA-C: [address], [place] [address], Ph. Attender: Kassie REARDON [facility] Medical 08/19/2020 12:00:00 AM EDT [place] ([facility]) Kassie Frias PA-C: [address], [place] [address], Ph. Attender: Kassie REARDON [facility] Medical 08/19/2020 12:00:00 AM EDT [place] ([facility]) Kassie Frias PA-C: [address], [place] [address], Ph. Attender: Kassie REARDON [facility] Medical 08/19/2020 12:00:00 AM EDT [place] ([facility]) Kassie Frias PA-C: [address], [place] [address], Ph. Attender: Kassie REARDON [facility] Medical 08/19/2020 12:00:00 AM EDT [place] ([facility]) Kassie Frias PA-C: [address], [place] [address], Ph. Attender: Kassie REARDON [facility] Medical 08/19/2020 12:00:00 AM EDT [place] ([facility]) Kassie Frias PA-C: [address], [place] [address], Ph. Attender: Kassie REARDON [facility] Medical 08/19/2020 12:00:00 AM EDT [place] ([facility]) Attender: Phuong REARDON [facility] [place] 10:16:00 AM EDT - 07/10/2020 10:16:00 AM EDT [facility] ([facility]) Heidi Head, [facility]: [address], [place] [address], Ph. Attender: Heidi Head [facility] 07/09/2020 12:00:00 AM EDT [facility]) Heidi Head, [facility]: [address], [place] [address], Ph. Attender: Heidi Head [facility] 07/09/2020 12:00:00 AM EDT [place] ([facility]) Heidi Head, [employer]: [address], [place] [address], Ph. Attender: Heidi Head [facility] 07/09/2020 12:00:00 AM EDT [place] ([facility]) Heidi Head, [facility]: [address], [place] [address], Ph. Attender: Heidi Head [facility] 07/09/2020 12:00:00 AM EDT [place] ([facility]) Heidi Head, [facility]: [address], [place] [address], Ph. Attender: Heidi Head [facility] Medical 07/09/2020 12:00:00 AM EDT [facility]) Heidi Head, [facility]: [address] [place] [address], Ph. Attender: Heidi Head [facility] Medical 07/09/2020 12:00:00 AM EDT [facility]) Heidi eHad, [facility]: [address] [place] [address], Ph. Attender: Heidi Head [facility] Medical 07/09/2020 12:00:00 AM EDT [facility]) Heidi Head, [facility]: [address] [place] [address], Ph. Attender: Heidi Head [facility] Medical 07/09/2020 12:00:00 AM EDT [facility]) [facility] [address] [place] [address], Ph. 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 Mcguire 07/08/2020 01:00:00 PM EDT - 07/08/2020 01:00:00 PM EDT Other sex counselingEncntr screen for infections w sexl mode of transmissEncounter for oth general cnsl and advice on procreationEncounter for oth general cnsl and advice on contraceptionEncounter for test, result negativeHuman immunodeficiency virus [HIV] counseling [facility] ([facility]) Other sex counseling Encntr screen for infections w sexl mode of transmiss Encounter for oth general cnsl and advic e on procreation Encounter for oth general cnsl and advic e on contraception Encounter for test, result neg ative Human immunodeficiency virus [HIV] couns valdez Kassie Frias PA-C: [address], [place] [address], Ph. Attender: Kassie REARDON [facility] Medical 06/27/2020 12:00:00 AM EDT [facility]) Kassie Frias PA-C: [address], [place] [address], Ph. Attender: Kassie REARDON [facility] 06/27/2020 12:00:00 AM EDT [facility]) Kassie Frias PA-C: [address], [place] [address], Ph. Attender: Kassie REARDON [facility] 06/27/2020 12:00:00 AM EDT [facility]) Kassie Frias PA-C: [address], [place] [address], Ph. Attender: Kassie REARDON [facility] Medical 06/27/2020 12:00:00 AM EDT [facility]) Kassie Frias PA-C: [address], [place] [address], Ph. Attender: Kassie REARDON [facility] Medical 06/27/2020 12:00:00 AM EDT [place] ([facility]) Kassie Frias PA-C: [address], [place] [address], Ph. Attender: Kassie REARDON [facility] Medical 06/27/2020 12:00:00 AM EDT [place] ([facility]) Kassie Frias PA-C: [address], [place] [address], Ph. Attender: Kassie REARDON [facility] Medical 06/27/2020 12:00:00 AM EDT [place] ([facility]) Kassie Frias PA-C: [address], [place] [address], Ph. Attender: Kassie REARDON [facility] Medical 06/27/2020 12:00:00 AM EDT [place] ([facility]) Kassie Frias PA-C: [address], [place] [address], Ph. Attender: Kassie REARDON [facility] 06/27/2020 12:00:00 AM EDT [place] ([facility]) Kassie Frias PA-C: [address], [facility] [place] [address], Ph. 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 Attender: Kassie REARDON [facility] Medical 05/24/2020 12:00:00 AM EST [place] ([facility]) Kassie Frias PA-C: [address], [place] [address], Ph. Attender: Kassie REARDON [facility] Medical 05/24/2020 12:00:00 AM EST [place] ([facility]) Kassie Frias PA-C: [address], [place] [address], Ph. Attender: Kassie REARDON [facility] Medical 05/24/2020 12:00:00 AM EST [place] ([facility]) Kassie Frias PA-C: [address], [place] [address], Ph. Attender: Kassie REARDON [facility] Medical 05/24/2020 12:00:00 AM EST [place] ([facility]) Kassie Frias PA-C: [address], [place] [address], Ph. Attender: Kassie REARDON [facility] Medical 05/24/2020 12:00:00 AM EST [place] ([facility]) Kassie Frias PA-C: [address], [place] [address], Ph. Attender: Kassie REARDON [facility] Medical 05/24/2020 12:00:00 AM EST [place] ([facility]) Kassie Frias PA-C: [address], [place] [address], Ph. Attender: Kassie REARDON [facility] Medical 05/24/2020 12:00:00 AM EST [place] ([facility]) Kassie Frias PA-C: [address], [place] [address], Ph. Attender: Kassie REARDON [facility] Medical 05/24/2020 12:00:00 AM EST [place] ([facility]) Kassie Frias PA-C: [address], [place] [address], Ph. Attender: Kassie REARDON [facility] Medical 05/24/2020 12:00:00 AM EST [place] ([facility]) Kassie Frias PA-C: [address], [place] [address], Ph. Attender: Kassie REARDON [facility] Medical 05/24/2020 12:00:00 AM EST [place] ([facility]) Kassie Frias PA-C: [address], [place] [address], Ph. Attender: Kassie REARDON [facility] Medical 05/24/2020 12:00:00 AM EST [place] ([facility]) Kassie Frias PA-C: [address], [place] [address], Ph. Attender: Kassie REARDON [facility] Medical 04/16/2020 12:00:00 AM EST [place] ([facility]) Kassie Frias PA-C: [address], [place] [address], Ph. Attender: Kassie REARDON [facility] Medical 04/16/2020 12:00:00 AM EST [place] ([facility]) Kassie Frias PA-C: [address], [address], [place] [address], Ph. Attender: Kassie REARDON [facility] Medical 04/16/2020 12:00:00 AM EST [place] ([facility]) Kassie Frias PA-C: [address], [address], [place] [address], Ph. Attender: Kassie REARDON [facility] Medical 04/16/2020 12:00:00 AM EST [place] ([facility]) Kassie Frias PA-C: [address], [place] [address], Ph. Attender: Kassie REARDON [facility] Medical 04/16/2020 12:00:00 AM EST [place] ([facility]) Kassie Frias PA-C: [address], [address], [place] [address], Ph. Attender: Kassie REARDON [facility] Medical 04/16/2020 12:00:00 AM EST [place] ([facility]) Kassie Frias PA-C: [address], [address], [place] [address], Ph. Attender: Kassie REARDON [facility] Medical 04/16/2020 12:00:00 AM EST [place] ([facility]) Kassie Frias PA-C: [address], [place] [address], Ph. Attender: Kassie REARDON [facility] 04/16/2020 12:00:00 AM EST [place] ([facility]) Kassie Frias PA-C: [address], [address], [place] [address], Ph. Attender: Kassie REARDON [facility] Medical 04/16/2020 12:00:00 AM EST [place] ([facility]) Kassie Frias PA-C: [address], [address], [place] [address], Ph. Attender: Kassie REARDON [facility] Medical 04/16/2020 12:00:00 AM EST [place] ([facility]) Kassie Frias PA-C: [address], [address], [place] [address], Ph. Attender: Kassie REARDON [facility] Medical 04/16/2020 12:00:00 AM EST [place] ([facility]) Kassie Frias PA-C: [address], [address], [place] [address], Ph. Attender: Kassie REARDON [facility] Medical 04/16/2020 12:00:00 AM EST [place] ([facility]) OFFICE VISIT, ESTOutpatient Attender: Phuong [place] 04/09/2020 02:30:00 PM EST - 04/09/2020 02:30:00 PM EST Encounter for test, result negativeContact w and exposure to infect w a sexl mode of transmissEncounter for oth general cnsl and advice on procreationEncounter for oth general cnsl and advice on contraceptionOther sex counselingEncntr screen for infections w sexl mode of transmiss [facility] ([facility]) Encounter for test, result neg ative Contact w and exposure to infect w a sex l mode of transmiss Encounter for oth general cnsl and advic e on procreation Encounter for oth general cnsl and advic e on contraception Other sex counseling Encntr screen for infections w sexl mode of transmiss Kassie Frias PA-C: [address], [place] [address], Ph. Attender: Kassie REARDON [facility] Medical 03/15/2020 12:00:00 AM EST [place] ([facility]) Kassie Frias PA-C: [address], [place] [address], Ph. Attender: Kassie REARDON [facility] Medical 03/15/2020 12:00:00 AM EST [place] ([facility]) Kassie Frias PA-C: [address], [place] [address], Ph. Attender: Kassie REARDON [facility] Medical 03/15/2020 12:00:00 AM EST [place] ([facility]) Kassie Frias PA-C: [address], [place] [address], Ph. Attender: Kassie REARDON [facility] Medical 03/15/2020 12:00:00 AM EST [place] ([facility]) Kassie Frias PA-C: [address], [place] [address], Ph. Attender: Kassie REARDON [facility] Medical 03/15/2020 12:00:00 AM EST [place] ([facility]) Kassie Frias PA-C: [address], [place] [address], Ph. Attender: Kassie REARDON [facility] Medical 03/15/2020 12:00:00 AM EST [place] ([facility]) Kassie Frias PA-C: [address], [place] [address], Ph. Attender: Kassie REARDON [facility] Medical 03/15/2020 12:00:00 AM EST [place] ([facility]) Kassie Frias PA-C: [address], [place] [address], Ph. Attender: Kassie REARDON [facility] Medical 03/15/2020 12:00:00 AM EST [place] ([facility]) Kassie Frias PA-C: [address], [place] [address], Ph. Attender: Kassie REARDON [facility] Medical 03/15/2020 12:00:00 AM EST [place] ([facility]) Kassie Frias PA-C: [address], [place] [address], Ph. Attender: Kassie REARDON [facility] Medical 03/15/2020 12:00:00 AM EST [place] ([facility]) Kassie Frias PA-C: [address], [place] [address], Ph. Attender: Kassie REARDON [facility] Medical 03/15/2020 12:00:00 AM EST [place] ([facility]) Kassie Frias PA-C: [address], [place] [address], Ph. Attender: Kassie REARDON [facility] Medical 03/15/2020 12:00:00 AM EST [place] ([facility]) VERONICA AlbaC: [address] [place] [address], Ph. Attender: Kassie REARDON [facility] Medical 03/15/2020 12:00:00 AM EST [place] ([facility]) Outpatient Attender: STEVEN Cazares beryl: JUAN WATERMAN MDConsultant: Kassie REARDON 03/08/2020 08:20:00 PM EST - 03/10/2020 01:10:00 PM EST [facility] Patient discharged. Attender: Eliza Mcguire 12/2019 01:43:00 PM EST - 03/07/2020 01:43:00 PM EST [facility] ([facility]) Attender: Pham Mcguire 04/2019 10:06:00 AM EST - 02/28/2020 10:06:00 AM EST [facility] ([facility]) Attender: Pham Mcguire 03/2019 09:34:00 AM EST - 02/27/2020 09:34:00 AM EST [facility] ([facility]) OFFICE VISIT, ESTOutpatient Attender: [facility] 02/21/2020 12:30:00 PM EST - 02/21/2020 12:30:00 PM EST Encounter for other specified special examinationsEncounter for oth general cnsl and advice on contraceptionOther sex counselingEncounter for test, result negative [facility] ([facility]) Encounter for other specified special ex aminations Encounter for oth general cnsl and advic e on contraception Other sex counseling Encounter for test, result neg ative Emergency Attender: MAIRA SAUCEDA MDConsultant: PCP NO 02/18/2020 02:15:00 AM EST - 02/18/2020 04:15:00 AM EST [facility] Patient discharged. Kassie Frias PA-C: [address], [place] [address], Ph. Attender: Kassie REARDON [facility] Medical 02/01/2020 12:00:00 AM EST [place] ([facility]) Kassie Frias PA-C: [address], [place] [address], Ph. Attender: Kassie REARDON [facility] Medical 02/01/2020 12:00:00 AM EST [place] ([facility]) Kassie Frias PA-C: [address], [place] [address], Ph. Attender: Kassie REARDON [facility] Medical 02/01/2020 12:00:00 AM EST [place] ([facility]) Kassie Frias PA-C: [address], [place] [address], Ph. Attender: Kassie REARDON [facility] 02/01/2020 12:00:00 AM EST [place] ([facility]) Kassie Frias PA-C: [address], [place] [address], Ph. Attender: Kassie REARDON [facility] Medical 02/01/2020 12:00:00 AM EST [place] ([facility]) Kassie Frias PA-C: [address], [place] [address], Ph. Attender: Kassie REARDON [facility] Medical 02/01/2020 12:00:00 AM EST [place] ([facility]) Kassie Frias PA-C: [address], [place] [address], Ph. Attender: Kassie REARDON [facility] 02/01/2020 12:00:00 AM EST [place] ([facility]) Kassie Frias PA-C: [address], [place] [address], Ph. Attender: Kassie REARDON [facility] Medical 02/01/2020 12:00:00 AM EST [place] ([facility]) Kassie Frias PA-C: [address], [place] [address], Ph. Attender: Kassie REARDON [facility] Medical 02/01/2020 12:00:00 AM EST [place] ([facility]) Kassie Frias PA-C: [address], [place] [address], Ph. Attender: Kassie REARDON [facility] Medical 02/01/2020 12:00:00 AM EST [place] ([facility]) Kassie Frias PA-C: [address], [place] [address], Ph. Attender: Kassie REARDON [facility] Medical 02/01/2020 12:00:00 AM EST [place] ([facility]) Kassie Frias PA-C: [address], [place] [address], Ph. Attender: Kassie REARDON [facility] Medical 02/01/2020 12:00:00 AM EST [facility] ([facility]) Kassie Frias PA-C: [address] [place] [address], Ph. Attender: Kassie REARDON [facility] Medical 02/01/2020 12:00:00 AM EST [facility] ([facility]) Kassie Frias PA-C: [address] [place] [address], Ph. Attender: Kassie REARDON [facility] Medical 02/01/2020 12:00:00 AM EST [facility] ([facility]) Outpatient Attender: Donna Michel [employer] 12/18/2019 02:54:0 6 PM EDT [facility] Outpatient Attender: Donna Michel [employer] 12/18/2019 02:54:0 6 PM EDT [facility] OutpatientPREV VISIT, EST, AGE 18-39 Attender: Kristy Sage CNM [facility] 12/06/2019 09:25:00 AM EDT - 12/06/2019 09:25:00 AM ED T Encntr screen for infections w sexl mode of transmissHuman immunodeficiency virus [HIV] counselingEncounter for initial prescription of contraceptive pillsEncntr for wax coating machine tender exam (general) (routine) w/o abn findingsHigh risk heterosexual behavior Encounter for test, result negativeEncounter for oth general cnsl and advice on contraceptionOther sex counseling [facility] ([facility]) Encntr screen for infections w sexl mode of transmiss Human immunodeficiency virus [HIV] couns eling Encounter for initial prescription of co ntraceptive pills 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 COVID-19 VACCINE Moderna 12/17/2020 12:00:00 AM EDT completed [facility] Vaccine Series Complete: NOThis Data was Submitted to [facility] Via [employer]. New in 2011. IIV4 02/01/2020 01:15:00 PM EST completed 0.5 mL [place] ([facility]) New in 2011. IIV4 02/01/2020 01:15:00 PM EST completed 0.5 mL [place] ([facility]) New in 2011. IIV4 02/01/2020 01:15:00 PM EST completed 0.5 mL [place] ([facility]) New in 2011. IIV4 02/01/2020 01:15:00 PM EST completed 0.5 mL [place] ([facility]) New in 2011. IIV4 02/01/2020 01:15:00 PM EST completed 0.5 mL [place] ([facility]) New in 2011. IIV4 02/01/2020 01:15:00 PM EST completed 0.5 mL [place] ([facility]) New in 2011. IIV4 02/01/2020 01:15:00 PM EST completed 0.5 mL [place] ([facility]) New in 2011. IIV4 02/01/2020 01:15:00 PM EST completed 0.5 mL [place] ([facility]) New in 2011. IIV4 02/01/2020 01:15:00 PM EST completed 0.5 mL [place] ([facility]) New in 2011. IIV4 02/01/2020 01:15:00 PM EST completed 0.5 mL [place] ([facility]) New in 2011. IIV4 02/01/2020 01:15:00 PM EST completed 0.5 mL [place] ([facility]) New in 2011. IIV4 02/01/2020 01:15:00 PM EST completed 0.5 mL [place] ([facility]) New in 2011. IIV4 02/01/2020 01:15:00 PM EST completed 0.5 mL [place] ([facility]) Medications Medication Brand Name Start Date Product Form Dose Route Admi nistrative Instructions Pharmacy Instructions Status Indications Reaction Description Data Source(s) Amoxicillin 875 MG / Clavulanate 125 MG Oral Tablet 87 5-125 mg AMOXICILLIN/POTASSIUM CLAV 12/15/2020 12:00:00 AM EDT tablet 20 TAKE ONE TABLET BY MOUTH TWICE A DAY FOR 10 DAYS TAKE ONE TABLET BY MOUTH TWICE A DAY FOR 10 DAYS SOLD: 12/15/2020 [facility] Plus Low Iron 27 mg iron-1 mg tablet PNV,calcium 72/iron/folic acid 09/23/2020 12:00:00 AM EDT active 1 tablet by mouth daily [facility] ([facility]) Prena1 True 30 mg iron-1.4 mg-300 mg oral pack 105/ iron/folic ac/dha 04/09/2020 12:00:00 AM EST completed take one tablet by mouth daily [facility] ([facility]) Azithromycin 500 MG Oral Tablet azithromycin 500 mg ta blet azithromycin 500 mg tablet 04/09/2020 12:00:00 AM EST active take 2 tablet by oral route once [facility] Apri 0.15 mg-0.03 mg tablet {21 (desogestrel 0.15 MG / ethinyl estradiol 0.03 MG Oral Tablet) / 7 (inert ingredients 1 MG Oral Tablet) } Pack 12/06/2019 12:00:00 AM EDT completed Apri 28 Day Pack [facility] Metronidazole 500 MG Oral Tablet metroni dazole 500 mg tablet Take 1 tablet twice a day by oral route. metronidazole 500 mg tablet Take 1 table t twice a day by oral route. 1 completed metronidaz ole 500 MG Oral Tablet [place]) Escitalopram 10 MG Oral Tablet escitalopram 10 mg tabl et escitalopram 10 mg tablet completed escitalopram 10 MG Oral Tablet [place] ([facility]) Permethrin 10 MG/ML Medicated Shampoo Li ce Treatment (permethrin) 1 % topical liquid Lice Treatment (permethrin) 1 % topical liquid completed permethrin 10 MG/ML Medicated Shampoo [place] ([facility]) Escitalopram 20 MG Oral Tablet escitalopram 20 mg tabl et escitalopram 20 mg tablet completed escitalopram 20 MG Oral Tablet [place] ([facility]) Metronidazole 500 MG Oral Tablet metroni dazole 500 mg tablet Take 1 tablet twice a day by oral route. metronidazole 500 mg tablet Take 1 table t twice a day by oral route. 1 completed metronidaz ole 500 MG Oral Tablet [place] ([facility]) Escitalopram 10 MG Oral Tablet escitalopram 10 mg tabl et escitalopram 10 mg tablet completed escitalopram 10 MG Oral Tablet [place] ([facility]) Metronidazole 500 MG Oral Tablet metroni dazole 500 mg tablet Take 1 tablet twice a day by oral route. metronidazole 500 mg tablet Take 1 table t twice a day by oral route. 1 completed metronidaz ole 500 MG Oral Tablet [place] ([facility]) Permethrin 10 MG/ML Medicated Shampoo Li ce Treatment (permethrin) 1 % topical liquid Lice Treatment (permethrin) 1 % topical liquid completed permethrin 10 MG/ML Medicated Shampoo [place] ([facility]) Permethrin 10 MG/ML Medicated Shampoo Li ce Treatment (permethrin) 1 % topical liquid Lice Treatment (permethrin) 1 % topical liquid completed permethrin 10 MG/ML Medicated Shampoo [place] ([facility]) Escitalopram 10 MG Oral Tablet escitalopram 10 mg tabl et escitalopram 10 mg tablet completed escitalopram 10 MG Oral Tablet [place] ([facility]) Permethrin 10 MG/ML Medicated Shampoo Li ce Treatment (permethrin) 1 % topical liquid Lice Treatment (permethrin) 1 % topical liquid completed permethrin 10 MG/ML Medicated Shampoo [place] ([facility]) Permethrin 10 MG/ML Medicated Shampoo Li ce Treatment (permethrin) 1 % topical liquid Lice Treatment (permethrin) 1 % topical liquid completed permethrin 10 MG/ML Medicated Shampoo [place] ([facility]) Escitalopram 10 MG Oral Tablet escitalopram 10 mg tabl et escitalopram 10 mg tablet completed escitalopram 10 MG Oral Tablet [place] ([facility]) Escitalopram 10 MG Oral Tablet escitalopram 10 mg tabl et escitalopram 10 mg tablet [facility] Escital[facility]ram 20 MG Oral Tablet escitalopram 20 mg tabl et escitalopram 20 mg tablet completed escitalopram 20 MG Oral Tablet [place] ([facility]) Escitalopram 20 MG Oral Tablet escitalopram 20 mg tabl et escitalopram 20 mg tablet completed escitalopram 20 MG Oral Tablet [facility]) Azithromycin 500 MG Oral Tablet azithromycin 500 mg ta blet azithromycin 500 mg tablet completed azithromycin 50 0 MG Oral Tablet [facility]) Metronidazole 500 MG Oral Tablet metroni dazole 500 mg tablet Take 1 tablet twice a day by oral route. metronidazole 500 mg tablet Take 1 table t twice a day by oral route. 1 completed metronidaz ole 500 MG Oral Tablet [facility]) Escitalopram 10 MG Oral Tablet escitalopram 10 mg tabl et escitalopram 10 mg tablet completed escitalopram 10 MG Oral Tablet [facility]) Escitalopram 20 MG Oral Tablet escitalopram 20 mg tabl et escitalopram 20 mg tablet completed escitalopram 20 MG Oral Tablet [facility]) Azithromycin 500 MG Oral Tablet azithromycin 500 mg ta blet azithromycin 500 mg tablet completed azithromycin 50 0 MG Oral Tablet [facility]) Escitalopram 10 MG Oral Tablet escitalopram 10 mg tabl et escitalopram 10 mg tablet completed escitalopram 10 MG Oral Tablet [facility]) Metronidazole 500 MG Oral Tablet metroni dazole 500 mg tablet Take 1 tablet twice a day by oral route. metronidazole 500 mg tablet Take 1 table t twice a day by oral route. 1 completed metronidaz ole 500 MG Oral Tablet [facility]) Permethrin 10 MG/ML Medicated Shampoo Li ce Treatment (permethrin) 1 % topical liquid Lice Treatment (permethrin) 1 % topical liquid completed permethrin 10 MG/ML Medicated Shampoo [facility]) Escitalopram 20 MG Oral Tablet escitalopram 20 mg tabl et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 Other 04/09/2020 12:00:00 AM EST - 2020 12:00:00 AM EST [facility] ([facility]) CVR Med.Svc. Height/Weight 04/09/2020 12 :00:00 AM EST - 04/09/2020 12:00:00 AM EST [facility] ([facility]) CVR Blood Pressure 04/09/2020 12:00:00 AM EST - 2020 12:00:00 AM EST [facility] ([facility]) OFFICE VISIT, EST 04/09/2020 12:00:00 AM EST - 021 12:00:00 AM EST [facility] ([facility]) URINE TEST 04/09/2020 12:00:00 AM EST - 04/09/2020 12:00:00 AM EST [facility] ([facility]) ROUTINE VENIPUNCTURE 04/09/2020 12:00:00 AM EST - 04/09/2020 12:00:00 AM EST [facility] ([facility]) CVR Equipment Records Supervisor.Svc. STI / H 02/21/2020 12:00:00 AM EST - 02/21/2020 12:00:00 AM EST [facility] ([facility]) CVR Equipment Records Supervisor.Svc. Other 02/21/2020 12:00:00 AM EST - 2019 12:00:00 AM EST [facility] ([facility]) CVR Med.Svc. Height/Weight 02/21/2020 12 :00:00 AM EST - 02/21/2020 12:00:00 AM EST [facility] ([facility]) CVR Blood Pressure 02/21/2020 12:00:00 AM EST - 2019 12:00:00 AM EST [facility] ([facility]) OFFICE VISIT, EST 02/21/2020 12:00:00 AM EST - 020 12:00:00 AM EST [facility] ([facility]) CHORIONIC GONADOTROPIN TEST 02/21/2020 1 2:00:00 AM EST - 02/21/2020 12:00:00 AM EST [facility] ([facility]) ROUTINE VENIPUNCTURE 02/21/2020 12:00:00 AM EST - 02/21/2020 12:00:00 AM EST [facility] ([facility]) URINE TEST 02/21/2020 12:00:00 AM EST - 02/21/2020 12:00:00 AM EST [facility] ([facility]) CVR Equipment Records Supervisor.Svc. STI / H 12/06/2019 12:00:00 AM EDT - 12/06/2019 12:00:00 AM EDT [facility] ([facility]) CVR Equipment Records Supervisor.Svc. Other 12/06/2019 12:00:00 AM EDT - 2019 12:00:00 AM EDT [facility] ([facility]) CVR Equipment Records Supervisor.Svc. Contraceptive 12/06/2019 12 :00:00 AM EDT - 12/06/2019 12:00:00 AM EDT [facility] ([facility]) CVR Med.Svc. Emergency Contraception 11/2019 12:00:00 AM EDT - 12/06/2019 12:00:00 AM EDT [facility] ([facility]) CVR Med.Svc. Method Initiation 0 12:00:00 AM EDT - 12/06/2019 12:00:00 AM EDT [facility] ([facility]) CVR Med.Svc. Abdominal Palp. 12/06/2019 12:00:00 AM EDT - 12/06/2019 12:00:00 AM EDT [facility] ([facility]) CVR Med.Svc. Heart/Lung Ausc. 12/06/2019 12:00:00 AM EDT - 12/06/2019 12:00:00 AM EDT [facility] ([facility]) CVR Med.Svc. Height/Weight 12/06/2019 12 :00:00 AM EDT - 12/06/2019 12:00:00 AM EDT [facility] ([facility]) CVR Blood Pressure 12/06/2019 12:00:00 AM EDT - 2019 12:00:00 AM EDT [facility] ([facility]) N.GONORRHOEAE, URINE 12/06/2019 12:00:00 AM EDT - 12/06/2019 12:00:00 AM EDT [facility] ([facility]) CHYLMD TRACH, URINE 12/06/2019 12:00:00 AM EDT - 12/05 12:00:00 AM EDT [facility] ([facility]) HCS Without Test 12/06/2019 12:00:00 AM EDT - 12/06/19 20 12:00:00 AM EDT [facility] ([facility]) PREV VISIT, EST, AGE 18-39 12/06/2019 12 :00:00 AM EDT - 12/06/2019 12:00:00 AM EDT [facility] ([facility]) URINE TEST 12/06/2019 12:00:00 AM EDT - 12/06/2019 12:00:00 AM EDT [facility] ([facility]) Results ID Date Data Source [id number] 09/23/2020 07:54:04 AM EDT [facility] ([facility]) Name Value Range Interpretation Code Description Data Libia rce(s) Supporting Document(s) NegativeLot: [id number]: 03/28/2022 High Sensitivity Urine Test [facility] ([facility]) ID Date Data Source [id number] 08/19/2020 02:45:00 PM EDT [facility]) Name Value Range Interpretation Code Description Data Libia rce(s) Supporting Document(s) Hemoglobin A1c/Hemoglobin.total in Blood 4.6 % Hba1C [facility]) ID Date Data Source [id number] 08/19/2020 02:45:00 PM EDT [facility]) Name Value Range Interpretation Code Description Data Libia rce(s) Supporting Document(s) Hemoglobin A1c/Hemoglobin.total in Blood 4.6 % Hba1C [facility]) ID Date Data Source [id number] 08/19/2020 02:45:00 PM EDT [facility]) Name Value Range Interpretation Code Description Data Libia rce(s) Supporting Document(s) Hemoglobin A1c/Hemoglobin.total in Blood 4.6 % Hba1C [facility]) ID Date Data Source [id number] 08/19/2020 02:45:00 PM EDT [facility]) Name Value Range Interpretation Code Description Data Libia rce(s) Supporting Document(s) Hemoglobin A1c/Hemoglobin.total in Blood 4.6 % Hba1C [place] ([facility]) ID Date Data Source [id number] 08/19/2020 02:45:00 PM EDT [facility]) Name Value Range Interpretation Code Description Data Libia rce(s) Supporting Document(s) Hemoglobin A1c/Hemoglobin.total in Blood 4.6 % Hba1C [place] ([facility]) ID Date Data Source [id number] 08/19/2020 02:45:00 PM EDT [facility]) Name Value Range Interpretation Code Description Data Libia rce(s) Supporting Document(s) Hemoglobin A1c/Hemoglobin.total in Blood 4.6 % Hba1C [facility]) ID Date Data Source [id number] 08/19/2020 02:45:00 PM EDT [facility]) Name Value Range Interpretation Code Description Data Libia rce(s) Supporting Document(s) Hemoglobin A1c/Hemoglobin.total in Blood 4.6 % Hba1C [facility]) ID Date Data Source [id number] 08/19/2020 02:45:00 PM EDT [facility]) Name Value Range Interpretation Code Description Data Libia rce(s) Supporting Document(s) Hemoglobin A1c/Hemoglobin.total in Blood 4.6 % Hba1C [facility]) ID Date Data Source [id number] 08/19/2020 02:45:00 PM EDT [facility]) Name Value Range Interpretation Code Description Data Libia rce(s) Supporting Document(s) Hemoglobin A1c/Hemoglobin.total in Blood 4.6 % Hba1C [facility]) ID Date Data Source [id number] 08/16/2020 09:38:00 PM EDT [place] ([facility]) Name Value Range Interpretation Code Description Data Libia rce(s) Supporting Document(s) ID Date Data Source [id number] 08/16/2020 09:38:00 PM EDT [place] ([facility]) Name Value Range Interpretation Code Description Data Libia rce(s) Supporting Document(s) amphetamines level urine negative negative Amphetamine s Level Urine [place] ([facility]) barbiturates urine negative negative Barbiturates Urin e [place] ([facility]) benzodiazepines urine negative negative Benzodiazepine s Urine [place] ([facility]) cannabinoids urine positive negative Above high normal Cannabinoi ds Urine [place] ([facility]) cocaine metabolite urine negative negative Cocaine Met abolite Urine [place] ([facility]) methadone urine negative negative Methadone Urine [place] ([facility]) opiates urine negative negative Opiates Urine [place] ( [facility]) phencyclidine urine negative negative Phencyclidine Ur ine [place] ([facility]) ID Date Data Source [id number] 08/16/2020 09:38:00 PM EDT [place] ([facility]) Name Value Range Interpretation Code Description Data Libia rce(s) Supporting Document(s) appearance, urine rfx hazy clear Appearance, Ur ine Rfx [place] ([facility]) pH,urine rfx 5.0 units 5.0-9.0 pH,urine Rfx [place] ([facility]) color, urine rfx yellow yellow Color, Urine Rfx [place] ([facility]) specific gravity ur auto rfx 1.002-1.035 Specif ic [place] Ur Auto Rfx [place] ([facility]) glucose, urine (UA) auto rfx negative negative Glucose , Urine (UA) Auto Rfx [place] ([facility]) protein, urine auto rfx negative negative Protein, Uri ne Auto Rfx [place] ([facility]) ketone, urine auto rfx negative negative Ketone, Urine Auto Rfx [place] ([facility]) bilirubin, urine auto rfx negative negative Bilirubin, Urine Auto Rfx [place] ([facility]) urobilinogen, urine auto rfx 0.2 mg/dL 0.0-2.0 Urobili nogen, Urine Auto Rfx [place] ([facility]) nitrite, urine auto rfx negative negative Nitrite, Uri ne Auto Rfx [place] ([facility]) blood, urine blood rfx negative negative Blood, Urine Blood Rfx [place] ([facility]) leukocyte esterase ur auto rfx trace negative Above high normal Leukocyte Esterase Ur Auto Rfx [place] ([facility]) WBC, urine auto rfx 1 /hpf 0-3 WBC, Urine Auto Rfx [place] ([facility]) RBC, urine auto rfx 1 /hpf 0-3 RBC, Urine Auto Rfx [place] ([facility]) bacteria, urine auto rfx negative negative Bacteria, U rine Auto Rfx [place] ([facility]) squam epithelial cell ur aurfx 2 /hpf 0-6 Squam Epithelial Cell Ur Aurfx [place] ([facility]) mucus, urine rfx small negative Mucus, Urine Rfx [place] ([facility]) hyaline cast, urine auto rfx 0 /lpf 0-1 Hyaline Cast, Urine Auto Rfx [place] ([facility]) ID Date Data Source [id number] 08/16/2020 09:38:00 PM EDT [place] ([facility]) Name Value Range Interpretation Code Description Data Libia rce(s) Supporting Document(s) ID Date Data Source [id number] 08/16/2020 09:38:00 PM EDT [place] ([facility]) Name Value Range Interpretation Code Description Data Libia rce(s) Supporting Document(s) amphetamines level urine negative negative Amphetamine s Level Urine [place] ([facility]) barbiturates urine negative negative Barbiturates Urin e [place] ([facility]) benzodiazepines urine negative negative Benzodiazepine s Urine [place] ([facility]) cocaine metabolite urine negative negative Cocaine Met abolite Urine [place] ([facility]) cannabinoids urine positive negative Above high normal Cannabinoi ds Urine [place] ([facility]) methadone urine negative negative Methadone Urine [place] ([facility]) opiates urine negative negative Opiates Urine [place] ( [facility]) phencyclidine urine negative negative Phencyclidine Ur ine [place] ([facility]) ID Date Data Source [id number] 08/16/2020 09:38:00 PM EDT [place] ([facility]) Name Value Range Interpretation Code Description Data Libia rce(s) Supporting Document(s) appearance, urine rfx hazy clear Appearance, Ur ine Rfx [place] ([facility]) color, urine rfx yellow yellow Color, Urine Rfx AT [facility] ([facility]) pH,urine rfx 5.0 units 5.0-9.0 pH,urine Rfx [place] ([facility]) protein, urine auto rfx negative negative Protein, Uri ne Auto Rfx [place] ([facility]) specific gravity ur auto rfx 1.002-1.035 Specif ic [place] Ur Auto Rfx [place] [facility] [facility] ketone, urine auto rfx negative negative Ketone, Urine Auto Rfx [place] ([facility]) glucose, urine (UA) auto rfx negative negative Glucose , Urine (UA) Auto Rfx [place] ([facility]) urobilinogen, urine auto rfx 0.2 mg/dL 0.0-2.0 Urobili nogen, Urine Auto Rfx [place] ([facility]) bilirubin, urine auto rfx negative negative Bilirubin, Urine Auto Rfx [place] ([facility]) leukocyte esterase ur auto rfx trace negative Above high normal Leukocyte Esterase Ur Auto Rfx [place] ([facility]) nitrite, urine auto rfx negative negative Nitrite, Uri ne Auto Rfx [place] ([facility]) blood, urine blood rfx negative negative Blood, Urine Blood Rfx [place] ([facility]) WBC, urine auto rfx 1 /hpf 0-3 WBC, Urine Auto Rfx [place] ([facility]) bacteria, urine auto rfx negative negative Bacteria, U rine Auto Rfx [place] ([facility]) RBC, urine auto rfx 1 /hpf 0-3 RBC, Urine Auto Rfx [place] ([facility]) squam epithelial cell ur aurfx 2 /hpf 0-6 Squam Epithelial Cell Ur Aurfx [place] ([facility]) mucus, urine rfx small negative Mucus, Urine Rfx [facility] [place] ([facility]) hyaline cast, urine auto rfx 0 /lpf 0-1 Hyaline Cast, Urine Auto Rfx [place] ([facility]) ID Date Data Source [id number] 08/16/2020 09:38:00 PM EDT [place] ([facility]) Name Value Range Interpretation Code Description Data Libia rce(s) Supporting Document(s) ID Date Data Source [id number] 08/16/2020 09:38:00 PM EDT [place] ([facility]) Name Value Range Interpretation Code Description Data Libia rce(s) Supporting Document(s) amphetamines level urine negative negative Amphetamine s Level Urine [place] ([facility]) barbiturates urine negative negative Barbiturates Urin e [place] ([facility]) cannabinoids urine positive negative Above high normal Cannabinoi ds Urine [place] ([facility]) benzodiazepines urine negative negative Benzodiazepine s Urine [place] ([facility]) cocaine metabolite urine negative negative Cocaine Met abolite Urine [place] ([facility]) methadone urine negative negative Methadone Urine [place] ([facility]) opiates urine negative negative Opiates Urine [place] ( [facility]) phencyclidine urine negative negative Phencyclidine Ur ine [place] ([facility]) ID Date Data Source [id number] 08/16/2020 09:38:00 PM EDT [facility]) Name Value Range Interpretation Code Description Data Libia rce(s) Supporting Document(s) appearance, urine rfx hazy clear Appearance, Ur ine Rfx [place] ([facility]) color, urine rfx yellow yellow Color, Urine Rfx [facility] ([facility]) pH,urine rfx 5.0 units 5.0-9.0 pH,urine Rfx [place] [facility] specific gravity ur auto rfx 1.002-1.035 Specif ic [place] Ur Auto Rfx [place] ([facility]) glucose, urine (UA) auto rfx negative negative Glucose , Urine (UA) Auto Rfx [place] ([facility]) protein, urine auto rfx negative negative Protein, Uri ne Auto Rfx [place] ([facility]) ketone, urine auto rfx negative negative Ketone, Urine Auto Rfx [place] ([facility]) urobilinogen, urine auto rfx 0.2 mg/dL 0.0-2.0 Urobili nogen, Urine Auto Rfx [place] ([facility]) bilirubin, urine auto rfx negative negative Bilirubin, Urine Auto Rfx [place] ([facility]) nitrite, urine auto rfx negative negative Nitrite, Uri ne Auto Rfx [place] ([facility]) leukocyte esterase ur auto rfx trace negative Above high normal Leukocyte Esterase Ur Auto Rfx [place] ([facility]) blood, urine blood rfx negative negative Blood, Urine Blood Rfx [place] ([facility]) WBC, urine auto rfx 1 /hpf 0-3 WBC, Urine Auto Rfx [place] ([facility]) bacteria, urine auto rfx negative negative Bacteria, U rine Auto Rfx [place] ([facility]) RBC, urine auto rfx 1 /hpf 0-3 RBC, Urine Auto Rfx [place] ([facility]) mucus, urine rfx small negative Mucus, Urine Rfx [facility] ([facility]) squam epithelial cell ur aurfx 2 /hpf 0-6 Squam Epithelial Cell Ur Aurfx [place] ([facility]) hyaline cast, urine auto rfx 0 /lpf 0-1 Hyaline Cast, Urine Auto Rfx [place] ([facility]) ID Date Data Source [id number] 08/16/2020 09:38:00 PM EDT [place] ([facility]) Name Value Range Interpretation Code Description Data Libia rce(s) Supporting Document(s) ID Date Data Source [id number] 08/16/2020 09:38:00 PM EDT [place] ([facility]) Name Value Range Interpretation Code Description Data Libia rce(s) Supporting Document(s) barbiturates urine negative negative Barbiturates Urin e [place] ([facility]) amphetamines level urine negative negative Amphetamine s Level Urine [place] ([facility]) cannabinoids urine positive negative Above high normal Cannabinoi ds Urine [place] ([facility]) benzodiazepines urine negative negative Benzodiazepine s Urine [place] ([facility]) cocaine metabolite urine negative negative Cocaine Met abolite Urine [place] ([facility]) methadone urine negative negative Methadone Urine [place] ([facility]) phencyclidine urine negative negative Phencyclidine Ur ine [place] ([facility]) opiates urine negative negative Opiates Urine [place] ( [facility]) ID Date Data Source [id number] 08/16/2020 09:38:00 PM EDT [place] ([facility]) Name Value Range Interpretation Code Description Data Libia rce(s) Supporting Document(s) appearance, urine rfx hazy clear Appearance, Ur ine Rfx [place] ([facility]) pH,urine rfx 5.0 units 5.0-9.0 pH,urine Rfx [place] ([facility]) color, urine rfx yellow yellow Color, Urine Rfx [facility] ([facility]) protein, urine auto rfx negative negative Protein, Uri ne Auto Rfx [place] ([facility]) specific gravity ur auto rfx 1.002-1.035 Specif ic [place] Ur Auto Rfx [place] ([facility]) ketone, urine auto rfx negative negative Ketone, Urine Auto Rfx [place] ([facility]) glucose, urine (UA) auto rfx negative negative Glucose , Urine (UA) Auto Rfx [place] ([facility]) urobilinogen, urine auto rfx 0.2 mg/dL 0.0-2.0 Urobili nogen, Urine Auto Rfx [place] ([facility]) bilirubin, urine auto rfx negative negative Bilirubin, Urine Auto Rfx [place] ([facility]) nitrite, urine auto rfx negative negative Nitrite, Uri ne Auto Rfx [place] ([facility]) blood, urine blood rfx negative negative Blood, Urine Blood Rfx [place] ([facility]) leukocyte esterase ur auto rfx trace negative Above high normal Leukocyte Esterase Ur Auto Rfx [place] ([facility]) RBC, urine auto rfx 1 /hpf 0-3 RBC, Urine Auto Rfx [place] ([facility]) WBC, urine auto rfx 1 /hpf 0-3 WBC, Urine Auto Rfx [place] ([facility]) bacteria, urine auto rfx negative negative Bacteria, U rine Auto Rfx [place] ([facility]) squam epithelial cell ur aurfx 2 /hpf 0-6 Squam Epithelial Cell Ur Aurfx [place] ([facility]) mucus, urine rfx small negative Mucus, Urine Rfx [facility] ([facility]) hyaline cast, urine auto rfx 0 /lpf 0-1 Hyaline Cast, Urine Auto Rfx [place] ([facility]) ID Date Data Source [id number] 08/16/2020 09:38:00 PM EDT [place] ([facility]) Name Value Range Interpretation Code Description Data Libia rce(s) Supporting Document(s) ID Date Data Source [id number] 08/16/2020 09:38:00 PM EDT [facility]) Name Value Range Interpretation Code Description Data Libia rce(s) Supporting Document(s) amphetamines level urine negative negative Amphetamine s Level Urine [place] ([facility]) barbiturates urine negative negative Barbiturates Urin e [place] ([facility]) benzodiazepines urine negative negative Benzodiazepine s Urine [place] ([facility]) cannabinoids urine positive negative Above high normal Cannabinoi ds Urine [place] ([facility]) cocaine metabolite urine negative negative Cocaine Met abolite Urine [place] ([facility]) methadone urine negative negative Methadone Urine [place] ([facility]) opiates urine negative negative Opiates Urine [place] ( [facility]) phencyclidine urine negative negative Phencyclidine Ur ine [place] ([facility]) ID Date Data Source [id number] 08/16/2020 09:38:00 PM EDT [place] ([facility]) Name Value Range Interpretation Code Description Data Libia rce(s) Supporting Document(s) appearance, urine rfx hazy clear Appearance, Ur ine Rfx [place] ([facility]) color, urine rfx yellow yellow Color, Urine Rfx [facility] ([facility]) specific gravity ur auto rfx 1.002-1.035 Specif ic [place] Ur Auto Rfx [place] ([facility]) pH,urine rfx 5.0 units 5.0-9.0 pH,urine Rfx [place] [facility] protein, urine auto rfx negative negative Protein, Uri ne Auto Rfx [place] ([facility]) glucose, urine (UA) auto rfx negative negative Glucose , Urine (UA) Auto Rfx [place] ([facility]) ketone, urine auto rfx negative negative Ketone, Urine Auto Rfx [place] ([facility]) bilirubin, urine auto rfx negative negative Bilirubin, Urine Auto Rfx [place] ([facility]) urobilinogen, urine auto rfx 0.2 mg/dL 0.0-2.0 Urobili nogen, Urine Auto Rfx [place] ([facility]) nitrite, urine auto rfx negative negative Nitrite, Uri ne Auto Rfx [place] ([facility]) leukocyte esterase ur auto rfx trace negative Above high normal Leukocyte Esterase Ur Auto Rfx [place] ([facility]) blood, urine blood rfx negative negative Blood, Urine Blood Rfx [place] ([facility]) RBC, urine auto rfx 1 /hpf 0-3 RBC, Urine Auto Rfx [place] ([facility]) WBC, urine auto rfx 1 /hpf 0-3 WBC, Urine Auto Rfx [place] ([facility]) squam epithelial cell ur aurfx 2 /hpf 0-6 Squam Epithelial Cell Ur Aurfx [place] ([facility]) bacteria, urine auto rfx negative negative Bacteria, U rine Auto Rfx [place] ([facility]) mucus, urine rfx small negative Mucus, Urine Rfx [facility] ([facility]) hyaline cast, urine auto rfx 0 /lpf 0-1 Hyaline Cast, Urine Auto Rfx [place] ([facility]) ID Date Data Source [id number] 08/16/2020 09:38:00 PM EDT [place] ([facility]) Name Value Range Interpretation Code Description Data Libia rce(s) Supporting Document(s) ID Date Data Source [id number] 08/16/2020 09:38:00 PM EDT [place] ([facility]) Name Value Range Interpretation Code Description Data Libia rce(s) Supporting Document(s) barbiturates urine negative negative Barbiturates Urin e [place] ([facility]) amphetamines level urine negative negative Amphetamine s Level Urine [place] ([facility]) benzodiazepines urine negative negative Benzodiazepine s Urine [place] ([facility]) cannabinoids urine positive negative Above high normal Cannabinoi ds Urine [place] ([facility]) cocaine metabolite urine negative negative Cocaine Met abolite Urine [place] ([facility]) methadone urine negative negative Methadone Urine [place] ([facility]) phencyclidine urine negative negative Phencyclidine Ur ine [place] ([facility]) opiates urine negative negative Opiates Urine [place] ( [facility]) ID Date Data Source [id number] 08/16/2020 09:38:00 PM EDT [place] ([facility]) Name Value Range Interpretation Code Description Data Libia rce(s) Supporting Document(s) appearance, urine rfx hazy clear Appearance, Ur ine Rfx [place] ([facility]) color, urine rfx yellow yellow Color, Urine Rfx [facility] ([facility]) specific gravity ur auto rfx 1.002-1.035 Specif ic [place] Ur Auto Rfx [place] ([facility]) pH,urine rfx 5.0 units 5.0-9.0 pH,urine Rfx [place] (No [facility]) protein, urine auto rfx negative negative Protein, Uri ne Auto Rfx [place] ([facility]) glucose, urine (UA) auto rfx negative negative Glucose , Urine (UA) Auto Rfx [place] ([facility]) ketone, urine auto rfx negative negative Ketone, Urine Auto Rfx [place] ([facility]) urobilinogen, urine auto rfx 0.2 mg/dL 0.0-2.0 Urobili nogen, Urine Auto Rfx [place] ([facility]) bilirubin, urine auto rfx negative negative Bilirubin, Urine Auto Rfx [place] ([facility]) nitrite, urine auto rfx negative negative Nitrite, Uri ne Auto Rfx [place] ([facility]) leukocyte esterase ur auto rfx trace negative Above high normal Leukocyte Esterase Ur Auto Rfx [place] ([facility]) blood, urine blood rfx negative negative Blood, Urine Blood Rfx [place] ([facility]) WBC, urine auto rfx 1 /hpf 0-3 WBC, Urine Auto Rfx [place] ([facility]) bacteria, urine auto rfx negative negative Bacteria, U rine Auto Rfx [place] ([facility]) RBC, urine auto rfx 1 /hpf 0-3 RBC, Urine Auto Rfx [place] ([facility]) squam epithelial cell ur aurfx 2 /hpf 0-6 Squam Epithelial Cell Ur Aurfx [place] ([facility]) mucus, urine rfx small negative Mucus, Urine Rfx [facility] ([facility]) hyaline cast, urine auto rfx 0 /lpf 0-1 Hyaline Cast, Urine Auto Rfx [place] ([facility]) ID Date Data Source [id number] 08/16/2020 09:38:00 PM EDT [place] ([facility]) Name Value Range Interpretation Code Description Data Libia rce(s) Supporting Document(s) ID Date Data Source [id number] 08/16/2020 09:38:00 PM EDT [place] ([facility]) Name Value Range Interpretation Code Description Data Libia rce(s) Supporting Document(s) amphetamines level urine negative negative Amphetamine s Level Urine [place] ([facility]) barbiturates urine negative negative Barbiturates Urin e [place] ([facility]) cannabinoids urine positive negative Above high normal Cannabinoi ds Urine [place] ([facility]) benzodiazepines urine negative negative Benzodiazepine s Urine [place] ([facility]) cocaine metabolite urine negative negative Cocaine Met abolite Urine [place] ([facility]) methadone urine negative negative Methadone Urine [place] ([facility]) opiates urine negative negative Opiates Urine [place] ( [facility]) phencyclidine urine negative negative Phencyclidine Ur ine [place] ([facility]) ID Date Data Source [id number] 08/16/2020 09:38:00 PM EDT [place] ([facility]) Name Value Range Interpretation Code Description Data Libia rce(s) Supporting Document(s) appearance, urine rfx hazy clear Appearance, Ur ine Rfx [place] ([facility]) color, urine rfx yellow yellow Color, Urine Rfx [facility] ([facility]) pH,urine rfx 5.0 units 5.0-9.0 pH,urine Rfx [place] (No [facility]) protein, urine auto rfx negative negative Protein, Uri ne Auto Rfx [place] ([facility]) specific gravity ur auto rfx 1.002-1.035 Specif ic [place] Ur Auto Rfx [place] ([facility]) ketone, urine auto rfx negative negative Ketone, Urine Auto Rfx [place] ([facility]) glucose, urine (UA) auto rfx negative negative Glucose , Urine (UA) Auto Rfx [place] ([facility]) urobilinogen, urine auto rfx 0.2 mg/dL 0.0-2.0 Urobili nogen, Urine Auto Rfx [place] ([facility]) bilirubin, urine auto rfx negative negative Bilirubin, Urine Auto Rfx [place] ([facility]) nitrite, urine auto rfx negative negative Nitrite, Uri ne Auto Rfx [place] ([facility]) blood, urine blood rfx negative negative Blood, Urine Blood Rfx [place] ([facility]) leukocyte esterase ur auto rfx trace negative Above high normal Leukocyte Esterase Ur Auto Rfx [place] ([facility]) WBC, urine auto rfx 1 /hpf 0-3 WBC, Urine Auto Rfx [place] ([facility]) RBC, urine auto rfx 1 /hpf 0-3 RBC, Urine Auto Rfx [place] ([facility]) squam epithelial cell ur aurfx 2 /hpf 0-6 Squam Epithelial Cell Ur Aurfx [place] ([facility]) bacteria, urine auto rfx negative negative Bacteria, U rine Auto Rfx [place] ([facility]) hyaline cast, urine auto rfx 0 /lpf 0-1 Hyaline Cast, Urine Auto Rfx [place] ([facility]) mucus, urine rfx small negative Mucus, Urine Rfx [facility] ([facility]) ID Date Data Source [id number] 08/16/2020 09:38:00 PM EDT [place] ([facility]) Name Value Range Interpretation Code Description Data Libia rce(s) Supporting Document(s) ID Date Data Source [id number] 08/16/2020 09:38:00 PM EDT [place] ([facility]) Name Value Range Interpretation Code Description Data Libia rce(s) Supporting Document(s) amphetamines level urine negative negative Amphetamine s Level Urine [place] ([facility]) barbiturates urine negative negative Barbiturates Urin e [place] ([facility]) benzodiazepines urine negative negative Benzodiazepine s Urine [place] ([facility]) cannabinoids urine positive negative Above high normal Cannabinoi ds Urine [place] ([facility]) cocaine metabolite urine negative negative Cocaine Met abolite Urine [place] ([facility]) methadone urine negative negative Methadone Urine [place] ([facility]) opiates urine negative negative Opiates Urine [place] ( [facility]) phencyclidine urine negative negative Phencyclidine Ur ine [place] ([facility]) ID Date Data Source [id number] 08/16/2020 09:38:00 PM EDT [place] ([facility]) Name Value Range Interpretation Code Description Data Libia rce(s) Supporting Document(s) appearance, urine rfx hazy clear Appearance, Ur ine Rfx [place] ([facility]) pH,urine rfx 5.0 units 5.0-9.0 pH,urine Rfx [place] (No [facility]) color, urine rfx yellow yellow Color, Urine Rfx [facility] ([facility]) protein, urine auto rfx negative negative Protein, Uri ne Auto Rfx [place] ([facility]) specific gravity ur auto rfx 1.002-1.035 Specif ic [place] Ur Auto Rfx [place] ([facility]) glucose, urine (UA) auto rfx negative negative Glucose , Urine (UA) Auto Rfx [place] ([facility]) ketone, urine auto rfx negative negative Ketone, Urine Auto Rfx [place] ([facility]) bilirubin, urine auto rfx negative negative Bilirubin, Urine Auto Rfx [place] ([facility]) urobilinogen, urine auto rfx 0.2 mg/dL 0.0-2.0 Urobili nogen, Urine Auto Rfx [place] ([facility]) nitrite, urine auto rfx negative negative Nitrite, Uri ne Auto Rfx [place] ([facility]) leukocyte esterase ur auto rfx trace negative Above high normal Leukocyte Esterase Ur Auto Rfx [place] ([facility]) blood, urine blood rfx negative negative Blood, Urine Blood Rfx [place] ([facility]) WBC, urine auto rfx 1 /hpf 0-3 WBC, Urine Auto Rfx [place] ([facility]) RBC, urine auto rfx 1 /hpf 0-3 RBC, Urine Auto Rfx [place] ([facility]) squam epithelial cell ur aurfx 2 /hpf 0-6 Squam Epithelial Cell Ur Aurfx [place] ([facility]) bacteria, urine auto rfx negative negative Bacteria, U rine Auto Rfx [place] ([facility]) mucus, urine rfx small negative Mucus, Urine Rfx [facility] ([facility]) hyaline cast, urine auto rfx 0 /lpf 0-1 Hyaline Cast, Urine Auto Rfx [place] ([facility]) ID Date Data Source [id number] 08/16/2020 09:38:00 PM EDT [place] ([facility]) Name Value Range Interpretation Code Description Data Libia rce(s) Supporting Document(s) ID Date Data Source [id number] 08/16/2020 09:38:00 PM EDT [place] ([facility]) Name Value Range Interpretation Code Description Data Libia rce(s) Supporting Document(s) barbiturates urine negative negative Barbiturates Urin e [place] ([facility]) amphetamines level urine negative negative Amphetamine s Level Urine [place] ([facility]) benzodiazepines urine negative negative Benzodiazepine s Urine [place] ([facility]) cannabinoids urine positive negative Above high normal Cannabinoi ds Urine [place] ([facility]) cocaine metabolite urine negative negative Cocaine Met abolite Urine [place] ([facility]) opiates urine negative negative Opiates Urine [place] ( [facility]) methadone urine negative negative Methadone Urine [facility] ([facility]) phencyclidine urine negative negative Phencyclidine Ur ine [place] ([facility]) ID Date Data Source [id number] 08/16/2020 09:38:00 PM EDT [place] ([facility]) Name Value Range Interpretation Code Description Data Libia rce(s) Supporting Document(s) appearance, urine rfx hazy clear Appearance, Ur ine Rfx [place] ([facility]) color, urine rfx yellow yellow Color, Urine Rfx [facility] ([facility]) pH,urine rfx 5.0 units 5.0-9.0 pH,urine Rfx [place] (No [facility]) specific gravity ur auto rfx 1.002-1.035 Specif ic [place] Ur Auto Rfx [place] ([facility]) glucose, urine (UA) auto rfx negative negative Glucose , Urine (UA) Auto Rfx [place] ([facility]) protein, urine auto rfx negative negative Protein, Uri ne Auto Rfx [place] ([facility]) ketone, urine auto rfx negative negative Ketone, Urine Auto Rfx [place] ([facility]) urobilinogen, urine auto rfx 0.2 mg/dL 0.0-2.0 Urobili nogen, Urine Auto Rfx [place] ([facility]) bilirubin, urine auto rfx negative negative Bilirubin, Urine Auto Rfx [place] ([facility]) nitrite, urine auto rfx negative negative Nitrite, Uri ne Auto Rfx [place] ([facility]) leukocyte esterase ur auto rfx trace negative Above high normal Leukocyte Esterase Ur Auto Rfx [place] ([facility]) blood, urine blood rfx negative negative Blood, Urine Blood Rfx [place] ([facility]) WBC, urine auto rfx 1 /hpf 0-3 WBC, Urine Auto Rfx [place] ([facility]) RBC, urine auto rfx 1 /hpf 0-3 RBC, Urine Auto Rfx [place] ([facility]) bacteria, urine auto rfx negative negative Bacteria, U rine Auto Rfx [place] ([facility]) squam epithelial cell ur aurfx 2 /hpf 0-6 Squam Epithelial Cell Ur Aurfx [place] ([facility]) mucus, urine rfx small negative Mucus, Urine Rfx [facility] ([facility]) hyaline cast, urine auto rfx 0 /lpf 0-1 Hyaline Cast, Urine Auto Rfx [place] ([facility]) ID Date Data Source [id number] 08/16/2020 09:36:00 PM EDT [place] ([facility]) Name Value Range Interpretation Code Description Data Libia rce(s) Supporting Document(s) free T4 0.90 NG/dL 0.78-1.33 Free T4 [place] ([facility]) ID Date Data Source [id number] 08/16/2020 09:36:00 PM EDT [place] ([facility]) Name Value Range Interpretation Code Description Data Libia rce(s) Supporting Document(s) thyroid stimulating hormone 2.090 uIU/mL 0.463-3.98 Thyroid Stimulating Hormone [place] ([facility]) ID Date Data Source [id number] 08/16/2020 09:36:00 PM EDT [place] ([facility]) Name Value Range Interpretation Code Description Data Libia rce(s) Supporting Document(s) magnesium level 1.7 mg/dL 1.8-2.4 Below low normal Magnesium Leve l [place] ([facility]) ID Date Data Source [id number] 08/16/2020 09:36:00 PM EDT [place] ([facility]) Name Value Range Interpretation Code Description Data Libia rce(s) Supporting Document(s) CPK creatine phosphokinase 31 U/L 26-192 CPK Creat ine Phosphokinase [place] ([facility]) CK-mb value mass < 1.0 <3.6 CK-mb Value Mass AT [place] ([facility]) mb/CK relative index < or =4 mb/CK Relative Index [place] ([facility]) troponin I < 0.02 < 0.10 Troponin I [place] ([facility]) ID Date Data Source [id number] 08/16/2020 09:36:00 PM EDT [place] ([facility]) Name Value Range Interpretation Code Description Data Libia rce(s) Supporting Document(s) D-dimer quant < 270 <500 D-dimer Quant [place] ( [facility]) ID Date Data Source [id number] 08/16/2020 09:36:00 PM EDT [place] ([facility]) Name Value Range Interpretation Code Description Data Libia rce(s) Supporting Document(s) partial thromboplastin time 26.9 seconds 24.2-38.5 Partial Thromboplastin Time [place] ([facility]) ID Date Data Source [id number] 08/16/2020 09:36[facility] Name Value Range Interpretation Code Description Data Libia rce(s) Supporting Document(s) INR Inr [place] ([facility]) prothrombin time 13.7 seconds 12.5-14.3 Prothrombin Time [place] ([facility]) ID Date Data Source [id number] 08/16/2020 09:36:00 [facility] Name Value Range Interpretation Code Description Data Libia rce(s) Supporting Document(s) free T4 0.90 NG/dL 0.78-1.33 [facility] ID Date Data Source [id number] 08/16/2020 09:36:00 PM [facility] Name Value Range Interpretation Code Description Data Libia rce(s) Supporting Document(s) thyroid stimulating hormone 2.090 uIU/mL 0.463-3.98 Thyroid Stimulating Hormone [facility]) ID Date Data Source [id number] 08/16/2020 09:36:00 PM EDT [facility]) Name Value Range Interpretation Code Description Data Libia rce(s) Supporting Document(s) magnesium level 1.7 mg/dL 1.8-2.4 Below low normal Magnesium Ruthann l [place] ([facility]) ID Date Data Source [id number] 08/16/2020 09:36:00 PM EDT [place] ([facility]) Name Value Range Interpretation Code Description Data Libia rce(s) Supporting Document(s) CPK creatine phosphokinase 31 U/L 26-192 CPK Creat ine Phosphokinase [place] ([facility]) CK-mb value mass < 1.0 <3.6 CK-mb Value Mass [place] ([facility]) troponin I < 0.02 < 0.10 Troponin I [place] ([facility]) mb/CK relative index < or =4 mb/CK Relative Index [place] ([facility]) ID Date Data Source [id number] 08/16/2020 09:36:00 PM EDT [place] ([facility]) Name Value Range Interpretation Code Description Data Libia rce(s) Supporting Document(s) D-dimer quant < 270 <500 D-dimer Quant [place] ( [facility]) ID Date Data Source [id number] 08/16/2020 09:36:00 PM EDT [facility]) Name Value Range Interpretation Code Description Data Libia rce(s) Supporting Document(s) partial thromboplastin time 26.9 seconds 24.2-38.5 Partial Thromboplastin Time [place] ([facility]) ID Date Data Source [id number] 08/16/2020 09:36:00 PM [facility] Name Value Range Interpretation Code Description Data Libia rce(s) Supporting Document(s) prothrombin time 13.7 seconds 12.5-14.3 Prothrombin Time [place] ([facility]) INR Inr [place] ([facility]) ID Date Data Source [id number] 08/16/2020 09:36:00 PM EDT [place] ([facility]) Name Value Range Interpretation Code Description Data Libia rce(s) Supporting Document(s) free T4 0.90 NG/dL 0.78-1.33 Free T4 [facility]) ID Date Data Source [id number] 08/16/2020 09:36:00 PM EDT [place] ([facility]) Name Value Range Interpretation Code Description Data Libia rce(s) Supporting Document(s) thyroid stimulating hormone 2.090 uIU/mL 0.463-3.98 Thyroid Stimulating Hormone [facility]) ID Date Data Source [id number] 08/16/2020 09:36:00 PM EDT [place] ([facility]) Name Value Range Interpretation Code Description Data Libia rce(s) Supporting Document(s) magnesium level 1.7 mg/dL 1.8-2.4 Below low normal Magnesium Leve l [facility]) ID Date Data Source [id number] 08/16/2020 09:36:00 PM EDT [place] ([facility]) Name Value Range Interpretation Code Description Data Libia rce(s) Supporting Document(s) CK-mb value mass < 1.0 <3.6 CK-mb Value Mass AT [facility] ([facility]) CPK creatine phosphokinase 31 U/L 26-192 CPK Creat ine Phosphokinase [place] ([facility]) troponin I < 0.02 < 0.10 Troponin I [place] ([facility]) mb/CK relative index < or =4 mb/CK Relative Index [place] ([facility]) ID Date Data Source [id number] 08/16/2020 09:36:00 PM EDT [facility] Name Value Range Interpretation Code Description Data Libia rce(s) Supporting Document(s) D-dimer quant < 270 <500 [facility] ID Date Data Source [id number] 08/16/2020 09:36:00 PM EDT [facility] Name Value Range Interpretation Code Description Data Libia rce(s) Supporting Document(s) partial thromboplastin time 26.9 seconds 24.2-38.5 Partial Thromboplastin Time [facility]) ID Date Data Source [id number] 08/16/2020 09:36:00 PM EDT [facility]) Name Value Range Interpretation Code Description Data Libia rce(s) Supporting Document(s) prothrombin time 13.7 seconds 12.5-14.3 Prothrombin Time [facility]) INR Inr [place] ([facility]) ID Date Data Source [id number] 08/16/2020 09:36:00 PM EDT [facility]) Name Value Range Interpretation Code Description Data Libia rce(s) Supporting Document(s) D-dimer quant < 270 <500 D-dimer Quant [facility]) ID Date Data Source [id number] 08/16/2020 09:36:00 PM [facility]T [facility] Name Value Range Interpretation Code Description Data Libia rce(s) Supporting Document(s) partial thromboplastin time 26.9 seconds 24.2-38.5 [facility] ID Date Data Source [id number] 08/16/2020 09:36:00 PM EDT [facility] Name Value Range Interpretation Code Description Data Libia rce(s) Supporting Document(s) prothrombin time 13.7 seconds 12.5-14.3 Prothrombin Time [place] ([facility]) INR Inr [place] ([facility]) ID Date Data Source [id number] 08/16/2020 09:36:00 PM EDT [place] ([facility]) Name Value Range Interpretation Code Description Data Libia rce(s) Supporting Document(s) free T4 0.90 NG/dL 0.78-1.33 Free T4 [place] ([facility]) ID Date Data Source [id number] 08/16/2020 09:36:00 PM EDT [place] ([facility]) Name Value Range Interpretation Code Description Data Libia rce(s) Supporting Document(s) thyroid stimulating hormone 2.090 uIU/mL 0.463-3.98 Thyroid Stimulating Hormone [place] ([facility]) ID Date Data Source [id number] 08/16/2020 09:36:00 PM EDT [place] ([facility]) Name Value Range Interpretation Code Description Data Libia rce(s) Supporting Document(s) magnesium level 1.7 mg/dL 1.8-2.4 Below low normal Magnesium Leve l [place] ([facility]) ID Date Data Source [id number] 08/16/2020 09:36:00 PM EDT [place] ([facility]) Name Value Range Interpretation Code Description Data Libia rce(s) Supporting Document(s) CK-mb value mass < 1.0 <3.6 CK-mb Value Mass [place] ([facility]) CPK creatine phosphokinase 31 U/L 26-192 CPK Creat ine Phosphokinase [place] ([facility]) troponin I < 0.02 < 0.10 Troponin I [place] ([facility]) mb/CK relative index < or =4 mb/CK Relative Index [place] ([facility]) ID Date Data Source [id number] 08/16/2020 09:36:00 PM EDT [place] ([facility]) Name Value Range Interpretation Code Description Data Libia rce(s) Supporting Document(s) D-dimer quant < 270 <500 D-dimer Quant [place] ( [facility]) ID Date Data Source [id number] 08/16/2020 09:36:00 PM EDT [place] ([facility]) Name Value Range Interpretation Code Description Data Libia rce(s) Supporting Document(s) partial thromboplastin time 26.9 seconds 24.2-38.5 Partial Thromboplastin Time [place] ([facility]) ID Date Data Source [id number] 08/16/2020 09:36:00 PM EDT [place] ([facility]) Name Value Range Interpretation Code Description Data Libia rce(s) Supporting Document(s) prothrombin time 13.7 seconds 12.5-14.3 Prothrombin Time [place] ([facility]) INR Inr [place] ([facility]) ID Date Data Source [id number] 08/16/2020 09:36:00 PM [facility] Name Value Range Interpretation Code Description Data Libia rce(s) Supporting Document(s) free T4 0.90 NG/dL 0.78-1.33 Free T4 [place] ([facility]) ID Date Data Source [id number] 08/16/2020 09:36:00 PM EDT [facility]) Name Value Range Interpretation Code Description Data Libia rce(s) Supporting Document(s) thyroid stimulating hormone 2.090 uIU/mL 0.463-3.98 Thyroid Stimulating Hormone [facility]) ID Date Data Source [id number] 08/16/2020 09:36:00 PM EDT [place] ([facility]) Name Value Range Interpretation Code Description Data Libia rce(s) Supporting Document(s) magnesium level 1.7 mg/dL 1.8-2.4 Below low normal Magnesium Ruthann lomax [place] ([facility]) ID Date Data Source [id number] 08/16/2020 09:36:00 PM EDT [place] ([facility]) Name Value Range Interpretation Code Description Data Libia rce(s) Supporting Document(s) CPK creatine phosphokinase 31 U/L 26-192 CPK Creat ine Phosphokinase [place] ([facility]) mb/CK relative index < or =4 mb/CK Relative Index [place] ([facility]) CK-mb value mass < 1.0 <3.6 CK-mb Value Mass [place] ([facility]) troponin I < 0.02 < 0.10 Troponin I [place] ([facility]) ID Date Data Source [id number] 08/16/2020 09:36:00 PM EDT [place] ([facility]) Name Value Range Interpretation Code Description Data Libia rce(s) Supporting Document(s) D-dimer quant < 270 <500 D-dimer Quant [place] ( [facility]) ID Date Data Source [id number] 08/16/2020 09:36:00 PM EDT [place] ([facility]) Name Value Range Interpretation Code Description Data Libia rce(s) Supporting Document(s) partial thromboplastin time 26.9 seconds 24.2-38.5 Partial Thromboplastin Time [place] ([facility]) ID Date Data Source [id number] 08/16/2020 09:36:00 PM EDT [place] ([facility]) Name Value Range Interpretation Code Description Data Libia rce(s) Supporting Document(s) prothrombin time 13.7 seconds 12.5-14.3 Prothrombin Time [place] ([facility]) INR Inr [place] ([facility]) ID Date Data Source [id number] 08/16/2020 09:36:00 PM EDT [place] ([facility]) Name Value Range Interpretation Code Description Data Libia rce(s) Supporting Document(s) free T4 0.90 NG/dL 0.78-1.33 Free T4 [place] ([facility]) ID Date Data Source [id number] 08/16/2020 09:36:00 PM EDT [place] ([facility]) Name Value Range Interpretation Code Description Data Libia rce(s) Supporting Document(s) thyroid stimulating hormone 2.090 uIU/mL 0.463-3.98 Thyroid Stimulating Hormone [place] ([facility]) ID Date Data Source [id number] 08/16/2020 09:36:00 PM [facility] Name Value Range Interpretation Code Description Data Libia rce(s) Supporting Document(s) magnesium level 1.7 mg/dL 1.8-2.4 Below low normal Magnesium Ruthann l [place] ([facility]) ID Date Data Source [id number] 08/16/2020 09:36:00 PM EDT [facility]) Name Value Range Interpretation Code Description Data Libia rce(s) Supporting Document(s) CPK creatine phosphokinase 31 U/L 26-192 CPK Creat ine Phosphokinase [place] ([facility]) CK-mb value mass < 1.0 <3.6 CK-mb Value Mass [place] ([facility]) mb/CK relative index < or =4 mb/CK Relative Index [place] ([facility]) troponin I < 0.02 < 0.10 Troponin I [place] ([facility]) ID Date Data Source [id number] 08/16/2020 09:36:00 PM EDT [place] ([facility]) Name Value Range Interpretation Code Description Data Libia rce(s) Supporting Document(s) D-dimer quant < 270 <500 D-dimer Quant [place] ( [facility]) ID Date Data Source [id number] 08/16/2020 09:36:00 PM EDT [place] ([facility]) Name Value Range Interpretation Code Description Data Libia rce(s) Supporting Document(s) partial thromboplastin time 26.9 seconds 24.2-38.5 Partial Thromboplastin Time [place] ([facility]) ID Date Data Source [id number] 08/16/2020 09:36:00 PM EDT [place] ([facility]) Name Value Range Interpretation Code Description Data Libia rce(s) Supporting Document(s) prothrombin time 13.7 seconds 12.5-14.3 Prothrombin Time [place] ([facility]) INR Inr [place] ([facility]) ID Date Data Source [id number] 08/16/2020 09:36:00 PM EDT [place] ([facility]) Name Value Range Interpretation Code Description Data Libia rce(s) Supporting Document(s) free T4 0.90 NG/dL 0.78-1.33 Free T4 [place] ([facility]) ID Date Data Source [id number] 08/16/2020 09:36:00 PM EDT [place] ([facility]) Name Value Range Interpretation Code Description Data Libia rce(s) Supporting Document(s) thyroid stimulating hormone 2.090 uIU/mL 0.463-3.98 [facility] ID Date Data Source [id number] 08/16/2020 09:36:00 PM EDT [place] ([facility]) Name Value Range Interpretation Code Description Data Libia rce(s) Supporting Document(s) magnesium level 1.7 mg/dL 1.8-2.4 Below low normal Magnesium Ruthann lomax [place] ([facility]) ID Date Data Source [id number] 08/16/2020 09:36:00 PM EDT [place] ([facility]) Name Value Range Interpretation Code Description Data Libia rce(s) Supporting Document(s) CPK creatine phosphokinase 31 U/L 26-192 CPK Creat ine Phosphokinase [place] ([facility]) CK-mb value mass < 1.0 <3.6 CK-mb Value Mass [place] ([facility]) mb/CK relative index < or =4 mb/CK Relative Index [place] ([facility]) troponin I < 0.02 < 0.10 Troponin I [place] ([facility]) ID Date Data Source [id number] 08/16/2020 09:36:00 PM EDT [place] ([facility]) Name Value Range Interpretation Code Description Data Libia rce(s) Supporting Document(s) D-dimer quant < 270 <500 D-dimer Quant [place] ( [facility]) ID Date Data Source [id number] 08/16/2020 09:36:00 PM EDT [place] ([facility]) Name Value Range Interpretation Code Description Data Libia rce(s) Supporting Document(s) partial thromboplastin time 26.9 seconds 24.2-38.5 Partial Thromboplastin Time [place] ([facility]) ID Date Data Source [id number] 08/16/2020 09:36:00 [facility] Name Value Range Interpretation Code Description Data Libia rce(s) Supporting Document(s) INR Inr [place] ([facility]) prothrombin time 13.7 seconds 12.5-14.3 Prothrombin Time [place] ([facility]) ID Date Data Source [id number] 08/16/2020 09:36:00 PM EDT [place] ([facility]) Name Value Range Interpretation Code Description Data Libia rce(s) Supporting Document(s) free T4 0.90 NG/dL 0.78-1.33 Free T4 [place] ([facility]) ID Date Data Source [id number] 08/16/2020 09:36:00 PM EDT [place] ([facility]) Name Value Range Interpretation Code Description Data Libia rce(s) Supporting Document(s) thyroid stimulating hormone 2.090 uIU/mL 0.463-3.98 Thyroid Stimulating Hormone [place] ([facility]) ID Date Data Source [id number] 08/16/2020 09:36:00 PM EDT [place] ([facility]) Name Value Range Interpretation Code Description Data Libia rce(s) Supporting Document(s) magnesium level 1.7 mg/dL 1.8-2.4 Below low normal Magnesium Leve l [place] ([facility]) ID Date Data Source [id number] 08/16/2020 09:36:00 PM EDT [place] ([facility]) Name Value Range Interpretation Code Description Data Libia rce(s) Supporting Document(s) CPK creatine phosphokinase 31 U/L 26-192 CPK Creat ine Phosphokinase [place] ([facility]) CK-mb value mass < 1.0 <3.6 CK-mb Value Mass AT [facility] ([facility]) mb/CK relative index < or =4 mb/CK Relative Index [place] ([facility]) troponin I < 0.02 < 0.10 Troponin I [place] ([facility]) ID Date Data Source [id number] 08/16/2020 09:36:00 PM EDT [place] ([facility]) Name Value Range Interpretation Code Description Data Libia rce(s) Supporting Document(s) D-dimer quant < 270 <500 D-dimer Quant [place] ( [facility]) ID Date Data Source [id number] 08/16/2020 09:36[facility]00 [facility] Name Value Range Interpretation Code Description Data Libia rce(s) Supporting Document(s) partial thromboplastin time 26.9 seconds 24.2-38.5 Partial Thromboplastin Time [place] ([facility]) ID Date Data Source [id number] 08/16/2020 09:36:00 PM [facility] Name Value Range Interpretation Code Description Data Libia rce(s) Supporting Document(s) prothrombin time 13.7 seconds 12.5-14.3 Prothrombin Time [place] ([facility]) INR Inr [place] ([facility]) ID Date Data Source [id number] 08/16/2020 09:36:00 PM [facility] Name Value Range Interpretation Code Description Data Libia rce(s) Supporting Document(s) free T4 0.90 NG/dL 0.78-1.33 Free T4 [facility]) ID Date Data Source [id number] 08/16/2020 09:36:00 PM [facility]T [facility] Name Value Range Interpretation Code Description Data Libia rce(s) Supporting Document(s) thyroid stimulating hormone 2.090 uIU/mL 0.463-3.98 Thyroid Stimulating Hormone [facility]) ID Date Data Source [id number] 08/16/2020 09:36:00 PM [facility]T [facility] Name Value Range Interpretation Code Description Data Libia rce(s) Supporting Document(s) magnesium level 1.7 mg/dL 1.8-2.4 Below low normal Magnesium Ruthann l [facility]) ID Date Data Source [id number] 08/16/2020 09:36:00 PM EDT [facility]) Name Value Range Interpretation Code Description Data Libia rce(s) Supporting Document(s) CPK creatine phosphokinase 31 U/L 26-192 CPK Creat ine Phosphokinase [place] ([facility]) mb/CK relative index < or =4 mb/CK Relative Index [place] ([facility]) CK-mb value mass < 1.0 <3.6 CK-mb Value Mass AT [facility]) troponin I < 0.02 < 0.10 Troponin I [place] ([facility]) ID Date Data Source [id number] 08/16/2020 08:07:00 PM EDT [place] ([facility]) Name Value Range Interpretation Code Description Data Libia rce(s) Supporting Document(s) HCG, serum qualitative negative negative HCG, Serum Qu alitative [facility]) ID Date Data Source [id number] 08/16/2020 08:07:00 PM EDT [facility]) Name Value Range Interpretation Code Description Data Libia rce(s) Supporting Document(s) glucose, fasting 83 mg/dL 70-100 Glucose, Fasting AT [facility] ([facility]) blood urea nitrogen 10 mg/dL 7-18 Blood Urea Nitro gen [place] ([facility]) creatinine for GFR 0.63 mg/dL 0.55-1.30 Creatinine for GF R [place] ([facility]) sodium level 142 mEq/L 136-145 Sodium Level [place] (No [facility]) potassium serum 4.4 mEq/L 3.5-5.1 Potassium Serum ATH NA ([facility]) chloride level 109 mEq/L 98-107 Above high normal Chloride Level [place] ([facility]) carbon dioxide level 29 mEq/L 21-32 Carbon Dioxide Level [place] ([facility]) anion gap 4 mEq/L 8-16 Below low normal Anion Gap [place] ( [facility]) calcium level 9.4 mg/dL 8.5-10.1 Calcium Level [place] ( [facility]) AST/SGOT 5 U/L 7-37 Below low normal AST/SGOT [place] ( [facility]) ALT/SGPT 14 U/L 12-78 ALT/SGPT [place] ([facility]) alkaline phosphatase 55 U/L 45-117 Alkaline Phosph atase [place] ([facility]) bilirubin,total 0.5 mg/dL 0.2-1.0 Bilirubin,total [facility] NA ([facility]) total protein 7.1 gm/dL 6.4-8.2 Total Protein [place] ( [facility]) albumin 4.2 gm/dL 3.2-5.2 Albumin [place] ([facility]) albumin/globulin ratio 1.2-2.2 Albumin/globu dyana Ratio [place] ([facility]) ID Date Data Source [id number] 08/16/2020 08:07:00 PM EDT [place] ([facility]) Name Value Range Interpretation Code Description Data Libia rce(s) Supporting Document(s) white blood count 6.9 10 4.0-10.0 White Blood Count [place] ([facility]) red blood count 4.64 10 4.00-5.40 Red Blood Count [facility] ([facility]) hemoglobin 13.7 g/dL 12.0-15.5 Hemoglobin [place] ([facility]) hematocrit 43.3 % 36.0-47.0 Hematocrit [place] ([facility]) mean corpuscular volume 93.3 fL 80.0-96.0 Mean Corpusc ular Volume [place] ([facility]) mean corpuscular hemoglobin 29.5 pg 27.0-33.0 Mean Cor puscular Hemoglobin [place] ([facility]) mean corpuscular HGB conc 31.6 g/dL 32.0-36.5 Below low maira l Mean Corpuscular HGB Conc [place] ([facility]) red cell distribution width 14.1 % 11.5-14.5 Red Cell Distribution Width [place] ([facility]) platelet count, automated 242 10 150-450 Platelet C ount, Automated [place] ([facility]) neutrophils % 59.9 % 36.0-66.0 Neutrophils % [place] ( [facility]) lymph % 29.3 % 24.0-44.0 Lymph % [place] ([facility]) mono % 6.2 % 2.0-8.0 [place] % [place] ([facility]) eos % 3.9 % 0.0-3.0 Above high normal Eos % [place] ([facility]) baso % 0.4 % 0.0-1.0 Baso % [place] ([facility]) immature granulocyte % 0.3 % 0-3.0 Immature Gran ulocyte % [place] ([facility]) nucleated red blood cell % 0.0 % 0-0 Nucleated Red Blood Cell % [place] ([facility]) neutrophils # 4.2 10 1.5-8.5 Neutrophils # [place] ( [facility]) lymph # 2.0 10 1.5-5.0 Lymph # [place] ([facility]) mono # 0.4 10 0.0-0.8 [place] # [place] ([facility]) eos # 0.3 10 0.0-0.5 Eos # [place] ([facility]) baso # 0.0 10 0.0-0.2 Baso # [place] ([facility]) ID Date Data Source [id number] 08/16/2020 08:07:00 PM EDT [place] ([facility]) Name Value Range Interpretation Code Description Data Libia rce(s) Supporting Document(s) HCG, serum qualitative negative negative HCG, Serum Qu alitative [place] ([facility]) ID Date Data Source [id number] 08/16/2020 08:07:00 PM EDT [place] ([facility]) Name Value Range Interpretation Code Description Data Libia rce(s) Supporting Document(s) blood urea nitrogen 10 mg/dL 7-18 Blood Urea Nitro gen [place] ([facility]) glucose, fasting 83 mg/dL 70-100 Glucose, Fasting AT [facility] ([facility]) creatinine for GFR 0.63 mg/dL 0.55-1.30 Creatinine for GF R [place] ([facility]) potassium serum 4.4 mEq/L 3.5-5.1 Potassium Serum [facility] NA ([facility]) sodium level 142 mEq/L 136-145 Sodium Level [place] ([facility]) carbon dioxide level 29 mEq/L 21-32 Carbon Dioxide Level [place] ([facility]) chloride level 109 mEq/L 98-107 Above high normal Chloride Level [place] ([facility]) anion gap 4 mEq/L 8-16 Below low normal Anion Gap [place] ( [facility]) AST/SGOT 5 U/L 7-37 Below low normal AST/SGOT [place] ( [facility]) calcium level 9.4 mg/dL 8.5-10.1 Calcium Level [place] ( [facility]) alkaline phosphatase 55 U/L 45-117 Alkaline Phosph atase [place] ([facility]) ALT/SGPT 14 U/L 12-78 ALT/SGPT [place] ([facility]) bilirubin,total 0.5 mg/dL 0.2-1.0 Bilirubin,total [facility] [place] ([facility]) total protein 7.1 gm/dL 6.4-8.2 Total Protein [place] ( [facility]) albumin 4.2 gm/dL 3.2-5.2 Albumin [place] ([facility]) albumin/globulin ratio 1.2-2.2 Albumin/globu dyana Ratio [place] ([facility]) ID Date Data Source [id number] 08/16/2020 08:07:00 PM EDT [place] ([facility]) Name Value Range Interpretation Code Description Data Libia rce(s) Supporting Document(s) white blood count 6.9 10 4.0-10.0 White Blood Count [place] ([facility]) hemoglobin 13.7 g/dL 12.0-15.5 Hemoglobin [place] ([facility]) red blood count 4.64 10 4.00-5.40 Red Blood Count [place] ([facility]) mean corpuscular volume 93.3 fL 80.0-96.0 Mean Corpusc ular Volume [place] ([facility]) hematocrit 43.3 % 36.0-47.0 Hematocrit [place] ([facility]) mean corpuscular hemoglobin 29.5 pg 27.0-33.0 Mean Cor puscular Hemoglobin [place] ([facility]) red cell distribution width 14.1 % 11.5-14.5 Red Cell Distribution Width [place] ([facility]) mean corpuscular HGB conc 31.6 g/dL 32.0-36.5 Below low maira l Mean Corpuscular HGB Conc [place] ([facility]) neutrophils % 59.9 % 36.0-66.0 Neutrophils % [place] ( [facility]) platelet count, automated 242 10 150-450 Platelet C ount, Automated [place] ([facility]) lymph % 29.3 % 24.0-44.0 Lymph % [place] ([facility]) mono % 6.2 % 2.0-8.0 [place] % [place] ([facility]) eos % 3.9 % 0.0-3.0 Above high normal Eos % [place] ([facility]) immature granulocyte % 0.3 % 0-3.0 Immature Gran ulocyte % [place] ([facility]) baso % 0.4 % 0.0-1.0 Baso % [place] ([facility]) nucleated red blood cell % 0.0 % 0-0 Nucleated Red Blood Cell % [place] ([facility]) neutrophils # 4.2 10 1.5-8.5 Neutrophils # [place] ( [facility]) lymph # 2.0 10 1.5-5.0 Lymph # [place] ([facility]) mono # 0.4 10 0.0-0.8 [place] # [place] ([facility]) eos # 0.3 10 0.0-0.5 Eos # [place] ([facility]) baso # 0.0 10 0.0-0.2 Baso # [place] ([facility]) ID Date Data Source [id number] 08/16/2020 08:07:00 PM EDT [place] ([facility]) Name Value Range Interpretation Code Description Data Libia rce(s) Supporting Document(s) HCG, serum qualitative negative negative HCG, Serum Qu alitative [place] ([facility]) ID Date Data Source [id number] 08/16/2020 08:07:00 PM EDT [place] ([facility]) Name Value Range Interpretation Code Description Data Libia rce(s) Supporting Document(s) glucose, fasting 83 mg/dL 70-100 Glucose, Fasting AT [facility] ([facility]) creatinine for GFR 0.63 mg/dL 0.55-1.30 Creatinine for GF R [place] ([facility]) blood urea nitrogen 10 mg/dL 7-18 Blood Urea Nitro gen [place] ([facility]) sodium level 142 mEq/L 136-145 Sodium Level [place] ([facility]) chloride level 109 mEq/L 98-107 Above high normal Chloride Level [place] ([facility]) potassium serum 4.4 mEq/L 3.5-5.1 Potassium Serum [place] ([facility]) anion gap 4 mEq/L 8-16 Below low normal Anion Gap [place] ( [facility]) carbon dioxide level 29 mEq/L 21-32 Carbon Dioxide Level [place] ([facility]) calcium level 9.4 mg/dL 8.5-10.1 Calcium Level [place] ( [facility]) ALT/SGPT 14 U/L 12-78 ALT/SGPT [place] ([facility]) AST/SGOT 5 U/L 7-37 Below low normal AST/SGOT [place] ( [facility]) bilirubin,total 0.5 mg/dL 0.2-1.0 Bilirubin,total [place] ([facility]) alkaline phosphatase 55 U/L 45-117 Alkaline Phosph atase [place] ([facility]) total protein 7.1 gm/dL 6.4-8.2 Total Protein [place] ( [facility]) albumin 4.2 gm/dL 3.2-5.2 Albumin [place] ([facility]) albumin/globulin ratio 1.2-2.2 Albumin/globu dyana Ratio [place] ([facility]) ID Date Data Source [id number] 08/16/2020 08:07:00 PM EDT [place] ([facility]) Name Value Range Interpretation Code Description Data Libia rce(s) Supporting Document(s) white blood count 6.9 10 4.0-10.0 White Blood Count [place] ([facility]) red blood count 4.64 10 4.00-5.40 Red Blood Count [facility] ([facility]) hematocrit 43.3 % 36.0-47.0 Hematocrit [place] ([facility]) hemoglobin 13.7 g/dL 12.0-15.5 Hemoglobin [place] ([facility]) mean corpuscular volume 93.3 fL 80.0-96.0 Mean Corpusc ular Volume [place] ([facility]) mean corpuscular hemoglobin 29.5 pg 27.0-33.0 Mean Cor puscular Hemoglobin [place] ([facility]) mean corpuscular HGB conc 31.6 g/dL 32.0-36.5 Below low maira l Mean Corpuscular HGB Conc [place] ([facility]) platelet count, automated 242 10 150-450 Platelet C ount, Automated [place] ([facility]) red cell distribution width 14.1 % 11.5-14.5 Red Cell Distribution Width [place] ([facility]) neutrophils % 59.9 % 36.0-66.0 Neutrophils % [place] ( [facility]) mono % 6.2 % 2.0-8.0 [place] % [place] ([facility]) lymph % 29.3 % 24.0-44.0 Lymph % [place] ([facility]) eos % 3.9 % 0.0-3.0 Above high normal Eos % [place] ([facility]) immature granulocyte % 0.3 % 0-3.0 Immature Gran ulocyte % [place] ([facility]) baso % 0.4 % 0.0-1.0 Baso % [place] ([facility]) nucleated red blood cell % 0.0 % 0-0 Nucleated Red Blood Cell % [place] ([facility]) neutrophils # 4.2 10 1.5-8.5 Neutrophils # [place] ( [facility]) lymph # 2.0 10 1.5-5.0 Lymph # [place] ([facility]) mono # 0.4 10 0.0-0.8 [place] # [place] ([facility]) eos # 0.3 10 0.0-0.5 Eos # [place] ([facility]) baso # 0.0 10 0.0-0.2 Baso # [place] ([facility]) ID Date Data Source [id number] 08/16/2020 08:07:00 PM EDT [place] ([facility]) Name Value Range Interpretation Code Description Data Libia rce(s) Supporting Document(s) HCG, serum qualitative negative negative HCG, Serum Qu alitative [place] ([facility]) ID Date Data Source [id number] 08/16/2020 08:07:00 PM EDT [place] ([facility]) Name Value Range Interpretation Code Description Data Libia rce(s) Supporting Document(s) glucose, fasting 83 mg/dL 70-100 Glucose, Fasting AT [facility] ([facility]) blood urea nitrogen 10 mg/dL 7-18 Blood Urea Nitro gen [place] ([facility]) creatinine for GFR 0.63 mg/dL 0.55-1.30 Creatinine for GF R [place] ([facility]) potassium serum 4.4 mEq/L 3.5-5.1 Potassium Serum [facility] ([facility]) sodium level 142 mEq/L 136-145 Sodium Level [place] ([facility]) chloride level 109 mEq/L 98-107 Above high normal Chloride Level [place] ([facility]) anion gap 4 mEq/L 8-16 Below low normal Anion Gap [place] ( [facility]) carbon dioxide level 29 mEq/L 21-32 Carbon Dioxide Level [place] ([facility]) calcium level 9.4 mg/dL 8.5-10.1 Calcium Level [place] ( [facility]) AST/SGOT 5 U/L 7-37 Below low normal AST/SGOT [place] ( [facility]) ALT/SGPT 14 U/L 12-78 ALT/SGPT [place] ([facility]) alkaline phosphatase 55 U/L 45-117 Alkaline Phosph atase [place] ([facility]) bilirubin,total 0.5 mg/dL 0.2-1.0 Bilirubin,total [facility] ([facility]) total protein 7.1 gm/dL 6.4-8.2 Total Protein [place] ( [facility]) albumin 4.2 gm/dL 3.2-5.2 Albumin [place] ([facility]) albumin/globulin ratio 1.2-2.2 Albumin/globu dyana Ratio [place] ([facility]) ID Date Data Source [id number] 08/16/2020 08:07:00 PM EDT [place] ([facility]) Name Value Range Interpretation Code Description Data Libia rce(s) Supporting Document(s) white blood count 6.9 10 4.0-10.0 White Blood Count [place] ([facility]) hemoglobin 13.7 g/dL 12.0-15.5 Hemoglobin [place] ([facility]) red blood count 4.64 10 4.00-5.40 Red Blood Count [facility] ([facility]) hematocrit 43.3 % 36.0-47.0 Hematocrit [place] ([facility]) mean corpuscular hemoglobin 29.5 pg 27.0-33.0 Mean Cor puscular Hemoglobin [place] ([facility]) mean corpuscular volume 93.3 fL 80.0-96.0 Mean Corpusc ular Volume [place] ([facility]) mean corpuscular HGB conc 31.6 g/dL 32.0-36.5 Below low maira l Mean Corpuscular HGB Conc [place] ([facility]) red cell distribution width 14.1 % 11.5-14.5 Red Cell Distribution Width [place] ([facility]) platelet count, automated 242 10 150-450 Platelet C ount, Automated [place] ([facility]) lymph % 29.3 % 24.0-44.0 Lymph % [place] ([facility]) neutrophils % 59.9 % 36.0-66.0 Neutrophils % [place] ( [facility]) mono % 6.2 % 2.0-8.0 [place] % [place] ([facility]) eos % 3.9 % 0.0-3.0 Above high normal Eos % [place] ([facility]) baso % 0.4 % 0.0-1.0 Baso % [place] ([facility]) nucleated red blood cell % 0.0 % 0-0 Nucleated Red Blood Cell % [place] ([facility]) immature granulocyte % 0.3 % 0-3.0 Immature Gran ulocyte % [place] ([facility]) neutrophils # 4.2 10 1.5-8.5 Neutrophils # [place] ( [facility]) lymph # 2.0 10 1.5-5.0 Lymph # [place] ([facility]) mono # 0.4 10 0.0-0.8 [place] # [place] ([facility]) eos # 0.3 10 0.0-0.5 Eos # [place] ([facility]) baso # 0.0 10 0.0-0.2 Baso # [place] ([facility]) ID Date Data Source [id number] 08/16/2020 08:07:00 PM EDT [place] ([facility]) Name Value Range Interpretation Code Description Data Libia rce(s) Supporting Document(s) HCG, serum qualitative negative negative HCG, Serum Qu alitative [place] ([facility]) ID Date Data Source [id number] 08/16/2020 08:07:00 PM EDT [place] ([facility]) Name Value Range Interpretation Code Description Data Libia rce(s) Supporting Document(s) blood urea nitrogen 10 mg/dL 7-18 Blood Urea Nitro gen [place] ([facility]) glucose, fasting 83 mg/dL 70-100 Glucose, Fasting AT [facility] ([facility]) creatinine for GFR 0.63 mg/dL 0.55-1.30 Creatinine for GF R [place] ([facility]) sodium level 142 mEq/L 136-145 Sodium Level [place] ([facility]) chloride level 109 mEq/L 98-107 Above high normal Chloride Level [place] ([facility]) potassium serum 4.4 mEq/L 3.5-5.1 Potassium Serum [facility] ([facility]) carbon dioxide level 29 mEq/L 21-32 Carbon Dioxide Level [place] ([facility]) anion gap 4 mEq/L 8-16 Below low normal Anion Gap [place] ( [facility]) calcium level 9.4 mg/dL 8.5-10.1 Calcium Level [place] ( [facility]) AST/SGOT 5 U/L 7-37 Below low normal AST/SGOT [place] ( [facility]) alkaline phosphatase 55 U/L 45-117 Alkaline Phosph atase [place] ([facility]) ALT/SGPT 14 U/L 12-78 ALT/SGPT [place] ([facility]) bilirubin,total 0.5 mg/dL 0.2-1.0 Bilirubin,total [place] ([facility]) total protein 7.1 gm/dL 6.4-8.2 Total Protein [place] ( [facility]) albumin 4.2 gm/dL 3.2-5.2 Albumin [place] ([facility]) albumin/globulin ratio 1.2-2.2 Albumin/globu dyana Ratio [place] ([facility]) ID Date Data Source [id number] 08/16/2020 08:07:00 PM EDT [place] ([facility]) Name Value Range Interpretation Code Description Data Libia rce(s) Supporting Document(s) white blood count 6.9 10 4.0-10.0 White Blood Count [place] ([facility]) red blood count 4.64 10 4.00-5.40 Red Blood Count [place] ([facility]) hemoglobin 13.7 g/dL 12.0-15.5 Hemoglobin [place] ([facility]) mean corpuscular volume 93.3 fL 80.0-96.0 Mean Corpusc ular Volume [place] ([facility]) hematocrit 43.3 % 36.0-47.0 Hematocrit [place] ([facility]) mean corpuscular hemoglobin 29.5 pg 27.0-33.0 Mean Cor puscular Hemoglobin [place] ([facility]) mean corpuscular HGB conc 31.6 g/dL 32.0-36.5 Below low maira l Mean Corpuscular HGB Conc [place] ([facility]) red cell distribution width 14.1 % 11.5-14.5 Red Cell Distribution Width [place] ([facility]) platelet count, automated 242 10 150-450 Platelet C ount, Automated [place] ([facility]) neutrophils % 59.9 % 36.0-66.0 Neutrophils % [place] ( [facility]) lymph % 29.3 % 24.0-44.0 Lymph % [place] ([facility]) mono % 6.2 % 2.0-8.0 [place] % [place] ([facility]) baso % 0.4 % 0.0-1.0 Baso % [place] ([facility]) eos % 3.9 % 0.0-3.0 Above high normal Eos % [place] ([facility]) immature granulocyte % 0.3 % 0-3.0 Immature Gran ulocyte % [place] ([facility]) nucleated red blood cell % 0.0 % 0-0 Nucleated Red Blood Cell % [place] ([facility]) lymph # 2.0 10 1.5-5.0 Lymph # [place] ([facility]) neutrophils # 4.2 10 1.5-8.5 Neutrophils # [place] ( [facility]) mono # 0.4 10 0.0-0.8 [place] # [place] ([facility]) eos # 0.3 10 0.0-0.5 Eos # [place] ([facility]) baso # 0.0 10 0.0-0.2 Baso # [place] ([facility]) ID Date Data Source [id number] 08/16/2020 08:07:00 PM EDT [facility]) Name Value Range Interpretation Code Description Data Libia rce(s) Supporting Document(s) HCG, serum qualitative negative negative HCG, Serum Qu alitative [facility]) ID Date Data Source [id number] 08/16/2020 08:07:00 PM EDT [facility]) Name Value Range Interpretation Code Description Data Libia rce(s) Supporting Document(s) glucose, fasting 83 mg/dL 70-100 Glucose, Fasting AT [facility]) blood urea nitrogen 10 mg/dL 7-18 Blood Urea Nitro gen [place] ([facility]) creatinine for GFR 0.63 mg/dL 0.55-1.30 Creatinine for GF R [place] ([facility]) sodium level 142 mEq/L 136-145 Sodium Level [place] ([facility]) potassium serum 4.4 mEq/L 3.5-5.1 Potassium Serum [facility] ([facility]) chloride level 109 mEq/L 98-107 Above high normal Chloride Level [place] ([facility]) carbon dioxide level 29 mEq/L 21-32 Carbon Dioxide Level [place] ([facility]) anion gap 4 mEq/L 8-16 Below low normal Anion Gap [place] ( [facility]) calcium level 9.4 mg/dL 8.5-10.1 Calcium Level [place] ( [facility]) ALT/SGPT 14 U/L 12-78 ALT/SGPT [place] ([facility]) AST/SGOT 5 U/L 7-37 Below low normal AST/SGOT [place] ( [facility]) alkaline phosphatase 55 U/L 45-117 Alkaline Phosph atase [place] ([facility]) bilirubin,total 0.5 mg/dL 0.2-1.0 Bilirubin,total [facility] ([facility]) total protein 7.1 gm/dL 6.4-8.2 Total Protein [place] ( [facility]) albumin/globulin ratio 1.2-2.2 Albumin/globu dyana Ratio [place] ([facility]) albumin 4.2 gm/dL 3.2-5.2 Albumin [place] ([facility]) ID Date Data Source [id number] 08/16/2020 08:07:00 PM EDT [place] ([facility]) Name Value Range Interpretation Code Description Data Libia rce(s) Supporting Document(s) white blood count 6.9 10 4.0-10.0 White Blood Count [place] ([facility]) red blood count 4.64 10 4.00-5.40 Red Blood Count [facility] ([facility]) hemoglobin 13.7 g/dL 12.0-15.5 Hemoglobin [place] ([facility]) hematocrit 43.3 % 36.0-47.0 Hematocrit [place] ([facility]) mean corpuscular volume 93.3 fL 80.0-96.0 Mean Corpusc ular Volume [place] ([facility]) mean corpuscular hemoglobin 29.5 pg 27.0-33.0 Mean Cor puscular Hemoglobin [place] ([facility]) mean corpuscular HGB conc 31.6 g/dL 32.0-36.5 Below low maira l Mean Corpuscular HGB Conc [place] ([facility]) platelet count, automated 242 10 150-450 Platelet C ount, Automated [place] ([facility]) red cell distribution width 14.1 % 11.5-14.5 Red Cell Distribution Width [place] ([facility]) lymph % 29.3 % 24.0-44.0 Lymph % [place] ([facility]) neutrophils % 59.9 % 36.0-66.0 Neutrophils % [place] ( [facility]) mono % 6.2 % 2.0-8.0 [place] % [place] ([facility]) eos % 3.9 % 0.0-3.0 Above high normal Eos % [place] ([facility]) baso % 0.4 % 0.0-1.0 Baso % [place] ([facility]) immature granulocyte % 0.3 % 0-3.0 Immature Gran ulocyte % [place] ([facility]) nucleated red blood cell % 0.0 % 0-0 Nucleated Red Blood Cell % [place] ([facility]) lymph # 2.0 10 1.5-5.0 Lymph # [place] ([facility]) neutrophils # 4.2 10 1.5-8.5 Neutrophils # [place] ( [facility]) mono # 0.4 10 0.0-0.8 [place] # [place] ([facility]) baso # 0.0 10 0.0-0.2 Baso # [place] ([facility]) eos # 0.3 10 0.0-0.5 Eos # [place] ([facility]) ID Date Data Source [id number] 08/16/2020 08:07:00 PM EDT [place] ([facility]) Name Value Range Interpretation Code Description Data Libia rce(s) Supporting Document(s) HCG, serum qualitative negative negative HCG, Serum Qu alitative [place] ([facility]) ID Date Data Source [id number] 08/16/2020 08:07:00 PM EDT [place] ([facility]) Name Value Range Interpretation Code Description Data Libia rce(s) Supporting Document(s) glucose, fasting 83 mg/dL 70-100 Glucose, Fasting AT [facility]) blood urea nitrogen 10 mg/dL 7-18 Blood Urea Nitro gen [place] ([facility]) creatinine for GFR 0.63 mg/dL 0.55-1.30 Creatinine for GF R [place] ([facility]) sodium level 142 mEq/L 136-145 Sodium Level [place] (No [facility]) potassium serum 4.4 mEq/L 3.5-5.1 Potassium Serum [facility] NA ([facility]) chloride level 109 mEq/L 98-107 Above high normal Chloride Level [place] ([facility]) carbon dioxide level 29 mEq/L 21-32 Carbon Dioxide Level [place] ([facility]) anion gap 4 mEq/L 8-16 Below low normal Anion Gap [place] ( [facility]) AST/SGOT 5 U/L 7-37 Below low normal AST/SGOT [place] ( [facility]) calcium level 9.4 mg/dL 8.5-10.1 Calcium Level [place] ( [facility]) ALT/SGPT 14 U/L 12-78 ALT/SGPT [place] ([facility]) bilirubin,total 0.5 mg/dL 0.2-1.0 Bilirubin,total [facility] ([facility]) alkaline phosphatase 55 U/L 45-117 Alkaline Phosph atase [place] ([facility]) albumin 4.2 gm/dL 3.2-5.2 Albumin [place] ([facility]) total protein 7.1 gm/dL 6.4-8.2 Total Protein [place] ( [facility]) albumin/globulin ratio 1.2-2.2 Albumin/globu dyana Ratio [place] ([facility]) ID Date Data Source [id number] 08/16/2020 08:07:00 PM EDT [place] ([facility]) Name Value Range Interpretation Code Description Data Libia rce(s) Supporting Document(s) white blood count 6.9 10 4.0-10.0 White Blood Count [place] ([facility]) red blood count 4.64 10 4.00-5.40 Red Blood Count [facility] NA ([facility]) hemoglobin 13.7 g/dL 12.0-15.5 Hemoglobin [place] ([facility]) hematocrit 43.3 % 36.0-47.0 Hematocrit [place] ([facility]) mean corpuscular volume 93.3 fL 80.0-96.0 Mean Corpusc ular Volume [place] ([facility]) mean corpuscular hemoglobin 29.5 pg 27.0-33.0 Mean Cor puscular Hemoglobin [place] ([facility]) mean corpuscular HGB conc 31.6 g/dL 32.0-36.5 Below low maira l Mean Corpuscular HGB Conc [place] ([facility]) red cell distribution width 14.1 % 11.5-14.5 Red Cell Distribution Width [place] ([facility]) platelet count, automated 242 10 150-450 Platelet C ount, Automated [place] ([facility]) neutrophils % 59.9 % 36.0-66.0 Neutrophils % [place] ( [facility]) lymph % 29.3 % 24.0-44.0 Lymph % [place] ([facility]) mono % 6.2 % 2.0-8.0 [place] % [place] ([facility]) eos % 3.9 % 0.0-3.0 Above high normal Eos % [place] ([facility]) baso % 0.4 % 0.0-1.0 Baso % [place] ([facility]) immature granulocyte % 0.3 % 0-3.0 Immature Gran ulocyte % [place] ([facility]) nucleated red blood cell % 0.0 % 0-0 Nucleated Red Blood Cell % [place] ([facility] [facility] # 4.2 10 1.5-8.5 Neutrophils # [place] ( [facility]) lymph # 2.0 10 1.5-5.0 Lymph # [place] ([facility]) mono # 0.4 10 0.0-0.8 [place] # [place] ([facility]) eos # 0.3 10 0.0-0.5 Eos # [place] ([facility]) baso # 0.0 10 0.0-0.2 Baso # [place] ([facility]) ID Date Data Source [id number] 08/16/2020 08:07:00 PM EDT [place] ([facility]) Name Value Range Interpretation Code Description Data Libia rce(s) Supporting Document(s) HCG, serum qualitative negative negative HCG, Serum Qu alitative [place] ([facility]) ID Date Data Source [id number] 08/16/2020 08:07:00 PM EDT [place] ([facility]) Name Value Range Interpretation Code Description Data Libia rce(s) Supporting Document(s) glucose, fasting 83 mg/dL 70-100 Glucose, Fasting AT [facility] ([facility]) blood urea nitrogen 10 mg/dL 7-18 Blood Urea Nitro gen [place] ([facility]) creatinine for GFR 0.63 mg/dL 0.55-1.30 Creatinine for GF R [place] ([facility]) sodium level 142 mEq/L 136-145 Sodium Level [place] ([facility]) potassium serum 4.4 mEq/L 3.5-5.1 Potassium Serum [place] ([facility]) chloride level 109 mEq/L 98-107 Above high normal Chloride Level [place] ([facility]) carbon dioxide level 29 mEq/L 21-32 Carbon Dioxide Level [place] ([facility]) anion gap 4 mEq/L 8-16 Below low normal Anion Gap [place] ( [facility]) calcium level 9.4 mg/dL 8.5-10.1 Calcium Level [place] ( [facility]) AST/SGOT 5 U/L 7-37 Below low normal AST/SGOT [place] ( [facility]) ALT/SGPT 14 U/L 12-78 ALT/SGPT [place] ([facility]) alkaline phosphatase 55 U/L 45-117 Alkaline Phosph atase [place] ([facility]) bilirubin,total 0.5 mg/dL 0.2-1.0 Bilirubin,total [place] ([facility]) total protein 7.1 gm/dL 6.4-8.2 Total Protein [place] ( [facility]) albumin 4.2 gm/dL 3.2-5.2 Albumin [place] ([facility]) albumin/globulin ratio 1.2-2.2 Albumin/globu dyana Ratio [place] ([facility]) ID Date Data Source [id number] 08/16/2020 08:07:00 PM EDT [place] ([facility]) Name Value Range Interpretation Code Description Data Libia rce(s) Supporting Document(s) white blood count 6.9 10 4.0-10.0 White Blood Count [place] ([facility]) red blood count 4.64 10 4.00-5.40 Red Blood Count [place] ([facility]) hemoglobin 13.7 g/dL 12.0-15.5 Hemoglobin [place] ([facility]) hematocrit 43.3 % 36.0-47.0 Hematocrit [place] ([facility]) mean corpuscular volume 93.3 fL 80.0-96.0 Mean Corpusc ular Volume [place] ([facility]) mean corpuscular hemoglobin 29.5 pg 27.0-33.0 Mean Cor puscular Hemoglobin [place] ([facility]) mean corpuscular HGB conc 31.6 g/dL 32.0-36.5 Below low maira l Mean Corpuscular HGB Conc [place] ([facility]) platelet count, automated 242 10 150-450 Platelet C ount, Automated [place] ([facility]) red cell distribution width 14.1 % 11.5-14.5 Red Cell Distribution Width [place] ([facility]) neutrophils % 59.9 % 36.0-66.0 Neutrophils % [place] ( [facility]) lymph % 29.3 % 24.0-44.0 Lymph % [place] ([facility]) mono % 6.2 % 2.0-8.0 [place] % [place] ([facility]) eos % 3.9 % 0.0-3.0 Above high normal E[place] % [place] ([facility]) baso % 0.4 % 0.0-1.0 Baso % [place] ([facility]) immature granulocyte % 0.3 % 0-3.0 Immature Gran ulocyte % [place] ([facility]) nucleated red blood cell % 0.0 % 0-0 Nucleated Red Blood Cell % [place] ([facility]) lymph # 2.0 10 1.5-5.0 Lymph # [place] ([facility]) neutrophils # 4.2 10 1.5-8.5 Neutrophils # [place] ( [facility]) mono # 0.4 10 0.0-0.8 [place] # [place] ([facility]) eos # 0.3 10 0.0-0.5 Eos # [place] ([facility]) baso # 0.0 10 0.0-0.2 Baso # [place] ([facility]) ID Date Data Source [id number] 08/16/2020 08:07:00 PM EDT [place] ([facility]) Name Value Range Interpretation Code Description Data Libia rce(s) Supporting Document(s) HCG, serum qualitative negative negative HCG, Serum Qu alitative [place] ([facility]) ID Date Data Source [id number] 08/16/2020 08:07:00 PM EDT [place] ([facility]) Name Value Range Interpretation Code Description Data Libia rce(s) Supporting Document(s) glucose, fasting 83 mg/dL 70-100 Glucose, Fasting AT [facility] ([facility]) creatinine for GFR 0.63 mg/dL 0.55-1.30 Creatinine for GF R [place] ([facility]) blood urea nitrogen 10 mg/dL 7-18 Blood Urea Nitro gen [place] ([facility]) sodium level 142 mEq/L 136-145 Sodium Level [place] ([facility]) potassium serum 4.4 mEq/L 3.5-5.1 Potassium Serum [place] ([facility]) chloride level 109 mEq/L 98-107 Above high normal Chloride Level [place] ([facility]) carbon dioxide level 29 mEq/L 21-32 Carbon Dioxide Level [place] ([facility]) anion gap 4 mEq/L 8-16 Below low normal Anion Gap [place] ( [facility]) calcium level 9.4 mg/dL 8.5-10.1 Calcium Level [place] ( [facility]) AST/SGOT 5 U/L 7-37 Below low normal AST/SGOT [place] ( [facility]) ALT/SGPT 14 U/L 12-78 ALT/SGPT [place] ([facility]) alkaline phosphatase 55 U/L 45-117 Alkaline Phosph atase [place] ([facility]) total protein 7.1 gm/dL 6.4-8.2 Total Protein [place] ( [facility]) bilirubin,total 0.5 mg/dL 0.2-1.0 Bilirubin,total [place] ([facility]) albumin 4.2 gm/dL 3.2-5.2 Albumin [place] ([facility]) albumin/globulin ratio 1.2-2.2 Albumin/globu dyana Ratio [place] ([facility]) ID Date Data Source [id number] 08/16/2020 08:07:00 PM EDT [place] ([facility]) Name Value Range Interpretation Code Description Data Libia rce(s) Supporting Document(s) white blood count 6.9 10 4.0-10.0 White Blood Count [place] ([facility]) hemoglobin 13.7 g/dL 12.0-15.5 Hemoglobin [place] ([facility]) red blood count 4.64 10 4.00-5.40 Red Blood Count [place] ([facility]) hematocrit 43.3 % 36.0-47.0 Hematocrit [place] ([facility]) mean corpuscular hemoglobin 29.5 pg 27.0-33.0 Mean Cor puscular Hemoglobin [place] ([facility]) mean corpuscular volume 93.3 fL 80.0-96.0 Mean Corpusc ular Volume [place] ([facility]) mean corpuscular HGB conc 31.6 g/dL 32.0-36.5 Below low maira l Mean Corpuscular HGB Conc [place] ([facility]) red cell distribution width 14.1 % 11.5-14.5 Red Cell Distribution Width [place] ([facility]) platelet count, automated 242 10 150-450 Platelet C ount, Automated [place] ([facility]) neutrophils % 59.9 % 36.0-66.0 Neutrophils % [place] ( [facility]) mono % 6.2 % 2.0-8.0 [place] % [place] ([facility]) lymph % 29.3 % 24.0-44.0 Lymph % [place] ([facility]) eos % 3.9 % 0.0-3.0 Above high normal Eos % [place] ([facility]) baso % 0.4 % 0.0-1.0 Baso % [place] ([facility]) immature granulocyte % 0.3 % 0-3.0 Immature Gran ulocyte % [place] ([facility]) nucleated red blood cell % 0.0 % 0-0 Nucleated Red Blood Cell % [place] ([facility]) neutrophils # 4.2 10 1.5-8.5 Neutrophils # [place] ( [facility]) lymph # 2.0 10 1.5-5.0 Lymph # [place] ([facility]) mono # 0.4 10 0.0-0.8 [place] # [place] ([facility]) eos # 0.3 10 0.0-0.5 Eos # [place] ([facility]) baso # 0.0 10 0.0-0.2 Baso # [place] ([facility]) ID Date Data Source [id number] 08/09/2020 07:48:00 PM EDT [place] ([facility]) Name Value Range Interpretation Code Description Data Libia rce(s) Supporting Document(s) ID Date Data Source [id number] 08/09/2020 07:48:00 PM EDT [facility]) Name Value Range Interpretation Code Description Data Libia rce(s) Supporting Document(s) ID Date Data Source [id number] 08/09/2020 07:48:00 PM EDT [facility]) Name Value Range Interpretation Code Description Data Libia rce(s) Supporting Document(s) ID Date Data Source [id number] 08/09/2020 07:48:00 PM EDT [facility]) Name Value Range Interpretation Code Description Data Libia rce(s) Supporting Document(s) ID Date Data Source [id number] 08/09/2020 07:48:00 PM EDT [facility]) Name Value Range Interpretation Code Description Data Libia rce(s) Supporting Document(s) ID Date Data Source [id number] 08/09/2020 07:48:00 PM EDT [facility]) Name Value Range Interpretation Code Description Data Libia rce(s) Supporting Document(s) ID Date Data Source [id number] 08/09/2020 07:48:00 PM EDT [facility]) Name Value Range Interpretation Code Description Data Libia rce(s) Supporting Document(s) ID Date Data Source [id number] 08/09/2020 07:48:00 PM EDT [facility]) Name Value Range Interpretation Code Description Data Libia rce(s) Supporting Document(s) ID Date Data Source [id number] 08/09/2020 07:48:00 PM EDT [facility]) Name Value Range Interpretation Code Description Data Libia rce(s) Supporting Document(s) ID Date Data Source [id number] 08/09/2020 07:29:00 PM EDT [place] ([facility]) Name Value Range Interpretation Code Description Data Libia rce(s) Supporting Document(s) istat HCT 37.0 % 38.0-51.0 Below low normal Istat HCT [place] ( [facility]) istat glucose 89 mg/dL 70-105 Istat Glucose [place] ( [facility]) istat sodium 140 mEq/L 136-145 Istat Sodium [place] ([facility]) istat potassium 4.2 mEq/L 3.5-5.1 Istat Potassium [place] ([facility]) istat Ca++ 5.0 mg/dL 4.5-5.3 Istat Ca++ [place] ([facility]) istat chloride 105 mEq/L 98-109 Istat Chloride [place] ([facility]) istat CO2 28.0 mm/L 23.0-27.0 Above high normal Istat CO2 [place] ([facility]) istat BUN 11 mg/dL 8-26 Istat BUN [place] ([facility]) istat creatinine 0.7 mg/dL 0.6-1.3 Istat Creatinine AT [facility] ([facility]) ID Date Data Source [id number] 08/09/2020 07:29:00 PM EDT [place] ([facility]) Name Value Range Interpretation Code Description Data Libai rce(s) Supporting Document(s) istat HCT 37.0 % 38.0-51.0 Below low normal Istat HCT [place] ( [facility]) istat sodium 140 mEq/L 136-145 Istat Sodium [place] ([facility]) istat glucose 89 mg/dL 70-105 Istat Glucose [place] ( [facility]) istat Ca++ 5.0 mg/dL 4.5-5.3 Istat Ca++ [place] ([facility]) istat potassium 4.2 mEq/L 3.5-5.1 Istat Potassium [place] ([facility]) istat BUN 11 mg/dL 8-26 Istat BUN [place] ([facility]) istat CO2 28.0 mm/L 23.0-27.0 Above high normal Istat CO2 [place] ([facility]) istat chloride 105 mEq/L 98-109 Istat Chloride [place] ([facility]) istat creatinine 0.7 mg/dL 0.6-1.3 Istat Creatinine AT [facility]) ID Date Data Source [id number] 08/09/2020 07:29:00 PM EDT [place] ([facility]) Name Value Range Interpretation Code Description Data Libia rce(s) Supporting Document(s) istat glucose 89 mg/dL 70-105 Istat Glucose [place] ( [facility]) istat HCT 37.0 % 38.0-51.0 Below low normal Istat HCT [place] ( [facility]) istat potassium 4.2 mEq/L 3.5-5.1 Istat Potassium [place] ([facility]) istat sodium 140 mEq/L 136-145 Istat Sodium [place] ([facility]) istat Ca++ 5.0 mg/dL 4.5-5.3 Istat Ca++ [place] ([facility]) istat chloride 105 mEq/L 98-109 Istat Chloride [place] ([facility]) istat CO2 28.0 mm/L 23.0-27.0 Above high normal Istat CO2 [place] ([facility]) istat BUN 11 mg/dL 8-26 Istat BUN [place] ([facility]) istat creatinine 0.7 mg/dL 0.6-1.3 Istat Creatinine AT [facility]) ID Date Data Source [id number] 08/09/2020 07:29:00 PM EDT [place] ([facility]) Name Value Range Interpretation Code Description Data Libia rce(s) Supporting Document(s) istat HCT 37.0 % 38.0-51.0 Below low normal Istat HCT [place] ( [facility]) istat sodium 140 mEq/L 136-145 Istat Sodium [place] ([facility]) istat glucose 89 mg/dL 70-105 Istat Glucose [place] ( [facility]) istat potassium 4.2 mEq/L 3.5-5.1 Istat Potassium [place] ([facility]) istat Ca++ 5.0 mg/dL 4.5-5.3 Istat Ca++ [place] ([facility]) istat CO2 28.0 mm/L 23.0-27.0 Above high normal Istat CO2 [place] ([facility]) istat chloride 105 mEq/L 98-109 Istat Chloride [place] ([facility]) istat creatinine 0.7 mg/dL 0.6-1.3 Istat Creatinine AT [facility] ([facility]) istat BUN 11 mg/dL 8-26 Istat BUN [place] ([facility]) ID Date Data Source [id number] 08/09/2020 07:29:00 PM EDT [place] ([facility]) Name Value Range Interpretation Code Description Data Libia rce(s) Supporting Document(s) istat HCT 37.0 % 38.0-51.0 Below low normal Istat HCT [place] ( [facility]) istat glucose 89 mg/dL 70-105 Istat Glucose [place] ( [facility]) istat sodium 140 mEq/L 136-145 Istat Sodium [place] ([facility]) istat potassium 4.2 mEq/L 3.5-5.1 Istat Potassium [place] ([facility]) istat chloride 105 mEq/L 98-109 Istat Chloride [place] ([facility]) istat Ca++ 5.0 mg/dL 4.5-5.3 Istat Ca++ [place] ([facility]) istat creatinine 0.7 mg/dL 0.6-1.3 Istat Creatinine AT [facility] ([facility]) istat BUN 11 mg/dL 8-26 Istat BUN [place] ([facility]) istat CO2 28.0 mm/L 23.0-27.0 Above high normal Istat CO2 [place] ([facility]) ID Date Data Source [id number] 08/09/2020 07:29:00 PM EDT [place] ([facility]) Name Value Range Interpretation Code Description Data Libia rce(s) Supporting Document(s) istat glucose 89 mg/dL 70-105 Istat Glucose [place] ( [facility]) istat HCT 37.0 % 38.0-51.0 Below low normal Istat HCT [place] ( [facility]) istat potassium 4.2 mEq/L 3.5-5.1 Istat Potassium [place] ([facility]) istat sodium 140 mEq/L 136-145 Istat Sodium [place] ([facility]) istat Ca++ 5.0 mg/dL 4.5-5.3 Istat Ca++ [place] ([facility]) istat chloride 105 mEq/L 98-109 Istat Chloride [place] ([facility]) istat CO2 28.0 mm/L 23.0-27.0 Above high normal Istat CO2 [place] ([facility]) istat creatinine 0.7 mg/dL 0.6-1.3 Istat Creatinine AT [facility] ([facility]) istat BUN 11 mg/dL 8-26 Istat BUN [place] ([facility]) ID Date Data Source [id number] 08/09/2020 07:29:00 PM EDT [place] ([facility]) Name Value Range Interpretation Code Description Data Libia rce(s) Supporting Document(s) istat glucose 89 mg/dL 70-105 Istat Glucose [place] ( [facility]) istat HCT 37.0 % 38.0-51.0 Below low normal Istat HCT [place] ( [facility]) istat sodium 140 mEq/L 136-145 Istat Sodium [place] ([facility]) istat potassium 4.2 mEq/L 3.5-5.1 Istat Potassium [place] ([facility]) istat chloride 105 mEq/L 98-109 Istat Chloride [place] ([facility]) istat Ca++ 5.0 mg/dL 4.5-5.3 Istat Ca++ [place] ([facility]) istat BUN 11 mg/dL 8-26 Istat BUN [place] ([facility]) istat CO2 28.0 mm/L 23.0-27.0 Above high normal Istat CO2 [place] ([facility]) istat creatinine 0.7 mg/dL 0.6-1.3 Istat Creatinine AT [facility] ([facility]) ID Date Data Source [id number] 08/09/2020 07:29:00 PM EDT [facility]) Name Value Range Interpretation Code Description Data Libia rce(s) Supporting Document(s) istat HCT 37.0 % 38.0-51.0 Below low normal Istat HCT [place] ( [facility]) istat glucose 89 mg/dL 70-105 Istat Glucose [place] ( [facility]) istat sodium 140 mEq/L 136-145 Istat Sodium [place] ([facility]) istat Ca++ 5.0 mg/dL 4.5-5.3 Istat Ca++ [place] ([facility]) istat potassium 4.2 mEq/L 3.5-5.1 Istat Potassium [place] ([facility]) istat CO2 28.0 mm/L 23.0-27.0 Above high normal Istat CO2 [place] ([facility]) istat chloride 105 mEq/L 98-109 Istat Chloride [place] ([facility]) istat creatinine 0.7 mg/dL 0.6-1.3 Istat Creatinine AT [facility] ([facility]) istat BUN 11 mg/dL 8-26 Istat BUN [place] ([facility]) ID Date Data Source [id number] 08/09/2020 07:29:00 PM EDT [facility]) Name Value Range Interpretation Code Description Data Libia rce(s) Supporting Document(s) istat HCT 37.0 % 38.0-51.0 Below low normal Istat HCT [place] ( [facility]) istat glucose 89 mg/dL 70-105 Istat Glucose [place] ( [facility]) istat sodium 140 mEq/L 136-145 Istat Sodium [place] ([facility]) istat potassium 4.2 mEq/L 3.5-5.1 Istat Potassium [place] ([facility]) istat Ca++ 5.0 mg/dL 4.5-5.3 Istat Ca++ [place] ([facility]) istat chloride 105 mEq/L 98-109 Istat Chloride [place] ([facility]) istat CO2 28.0 mm/L 23.0-27.0 Above high normal Istat CO2 [place] ([facility]) istat creatinine 0.7 mg/dL 0.6-1.3 Istat Creatinine AT [facility] ([facility]) istat BUN 11 mg/dL 8-26 Istat BUN [place] ([facility]) ID Date Data Source [id number] 08/09/2020 07:27:00 PM EDT [facility]) Name Value Range Interpretation Code Description Data Libia rce(s) Supporting Document(s) istat B-HCG < 5.0 Istat B-HCG [place] ([facility]) ID Date Data Source [id number] 08/09/2020 07:27:00 PM EDT [place] ([facility]) Name Value Range Interpretation Code Description Data Libia rce(s) Supporting Document(s) istat B-HCG < 5.0 Istat B-HCG [place] ([facility]) ID Date Data Source [id number] 08/09/2020 07:27:00 PM EDT [facility]) Name Value Range Interpretation Code Description Data Libia rce(s) Supporting Document(s) istat B-HCG < 5.0 Istat B-HCG [place] ([facility]) ID Date Data Source [id number] 08/09/2020 07:27:00 PM EDT [facility]) Name Value Range Interpretation Code Description Data Libia rce(s) Supporting Document(s) istat B-HCG < 5.0 Istat B-HCG [place] ([facility]) ID Date Data Source [id number] 08/09/2020 07:27:00 PM EDT [place] ([facility]) Name Value Range Interpretation Code Description Data Libia rce(s) Supporting Document(s) istat B-HCG < 5.0 Istat B-HCG [place] ([facility]) ID Date Data Source [id number] 08/09/2020 07:27:00 PM EDT [facility]) Name Value Range Interpretation Code Description Data Libia rce(s) Supporting Document(s) istat B-HCG < 5.0 Istat B-HCG [place] ([facility]) ID Date Data Source [id number] 08/09/2020 07:27:00 PM EDT [place] ([facility]) Name Value Range Interpretation Code Description Data Libia rce(s) Supporting Document(s) istat B-HCG < 5.0 Istat B-HCG [place] ([facility]) ID Date Data Source [id number] 08/09/2020 07:27[facility] Name Value Range Interpretation Code Description Data Libia rce(s) Supporting Document(s) istat B-HCG < 5.0 Istat B-HCG [place] ([facility]) ID Date Data Source [id number] 08/09/2020 07:27:00 [facility] Name Value Range Interpretation Code Description Data Libia rce(s) Supporting Document(s) istat B-HCG < 5.0 Istat B-HCG [place] ([facility]) ID Date Data Source [id number] 08/09/2020 07:24:00 [facility] Name Value Range Interpretation Code Description Data Libia rce(s) Supporting Document(s) syphilis nonreactive nonreactive Syphilis [place] ([facility]) ID Date Data Source [id number] 08/09/2020 07:24:00 [facility] Name Value Range Interpretation Code Description Data Libia rce(s) Supporting Document(s) AST/SGOT 7 U/L 7-37 AST/SGOT [place] ([facility]) ALT/SGPT 15 U/L 12-78 ALT/SGPT [place] ([facility]) alkaline phosphatase 56 U/L 45-117 Alkaline Phosph atase [place] ([facility]) bilirubin,total 0.6 mg/dL 0.2-1.0 Bilirubin,total [facility] [place] ([facility]) bilirubin,direct 0.2 mg/dL 0.0-0.2 Bilirubin,direct AT [facility] ([facility]) total protein 6.8 gm/dL 6.4-8.2 Total Protein [place] ( [facility]) albumin 4.1 gm/dL 3.2-5.2 Albumin [place] ([facility]) albumin/globulin ratio 1.2-2.2 Albumin/globu dyana Ratio [place] ([facility]) ID Date Data Source [id number] 08/09/2020 07:24:00 PM EDT [place] ([facility]) Name Value Range Interpretation Code Description Data Libia rce(s) Supporting Document(s) white blood count 7.6 10 4.0-10.0 White Blood Count [place] ([facility]) red blood count 4.40 10 4.00-5.40 Red Blood Count [facility] ([facility]) hemoglobin 12.9 g/dL 12.0-15.5 Hemoglobin [place] ([facility]) hematocrit 40.5 % 36.0-47.0 Hematocrit [place] ([facility]) mean corpuscular volume 92.0 fL 80.0-96.0 Mean Corpusc ular Volume [place] ([facility]) mean corpuscular hemoglobin 29.3 pg 27.0-33.0 Mean Cor puscular Hemoglobin [place] ([facility]) mean corpuscular HGB conc 31.9 g/dL 32.0-36.5 Below low maira l Mean Corpuscular HGB Conc [place] ([facility]) red cell distribution width 14.4 % 11.5-14.5 Red Cell Distribution Width [place] ([facility]) platelet count, automated 262 10 150-450 Platelet C ount, Automated [place] ([facility]) neutrophils % 71.5 % 36.0-66.0 Above high normal Neutrophils % [facility] ([facility]) lymph % 20.9 % 24.0-44.0 Below low normal Lymph % [place] ( [facility]) mono % 4.8 % 2.0-8.0 [place] % [place] ([facility]) eos % 2.0 % 0.0-3.0 Eos % [place] ([facility]) baso % 0.4 % 0.0-1.0 Baso % [place] ([facility]) immature granulocyte % 0.4 % 0-3.0 Immature Gran ulocyte % ESTHELA ([facility]) nucleated red blood cell % 0.0 % 0-0 Nucleated Red Blood Cell % ESTHELA ([facility]) neutrophils # 5.4 10 1.5-8.5 Neutrophils # ESTHELA ( [facility]) lymph # 1.6 10 1.5-5.0 Lymph # ESTHELA ([facility]) mono # 0.4 10 0.0-0.8 [place] # ESTHELA ([facility]) eos # 0.2 10 0.0-0.5 Eos # ESTHELA ([facility]) baso # 0.0 10 0.0-0.2 Baso # ESTHELA ([facility]) ID Date Data Source [id number] 08/09/2020 07:24:00 PM EDT [place] ([facility]) Name Value Range Interpretation Code Description Data Libia rce(s) Supporting Document(s) syphilis nonreactive nonreactive Syphilis [place] ([facility]) ID Date Data Source [id number] 08/09/2020 07:24:00 PM EDT [place] ([facility]) Name Value Range Interpretation Code Description Data Libia rce(s) Supporting Document(s) ALT/SGPT 15 U/L 12-78 ALT/SGPT [place] ([facility]) AST/SGOT 7 U/L 7-37 AST/SGOT [place] ([facility]) alkaline phosphatase 56 U/L 45-117 Alkaline Phosph atase [place] ([facility]) bilirubin,direct 0.2 mg/dL 0.0-0.2 Bilirubin,direct AT [place] ([facility]) bilirubin,total 0.6 mg/dL 0.2-1.0 Bilirubin,total [facility] ([facility]) albumin 4.1 gm/dL 3.2-5.2 Albumin [place] ([facility]) total protein 6.8 gm/dL 6.4-8.2 Total Protein [place] ( [facility]) albumin/globulin ratio 1.2-2.2 Albumin/globu dyana Ratio [place] ([facility]) ID Date Data Source [id number] 08/09/2020 07:24:00 PM EDT [place] ([facility]) Name Value Range Interpretation Code Description Data Libia rce(s) Supporting Document(s) white blood count 7.6 10 4.0-10.0 White Blood Count [place] ([facility]) hematocrit 40.5 % 36.0-47.0 Hematocrit [place] ([facility]) red blood count 4.40 10 4.00-5.40 Red Blood Count [place] ([facility]) hemoglobin 12.9 g/dL 12.0-15.5 Hemoglobin [place] ([facility]) mean corpuscular volume 92.0 fL 80.0-96.0 Mean Corpusc ular Volume [place] ([facility]) mean corpuscular hemoglobin 29.3 pg 27.0-33.0 Mean Cor puscular Hemoglobin [place] ([facility]) red cell distribution width 14.4 % 11.5-14.5 Red Cell Distribution Width [place] ([facility]) mean corpuscular HGB conc 31.9 g/dL 32.0-36.5 Below low maira l Mean Corpuscular HGB Conc [place] ([facility]) platelet count, automated 262 10 150-450 Platelet C ount, Automated [place] ([facility]) neutrophils % 71.5 % 36.0-66.0 Above high normal Neutrophils % [place] ([facility]) lymph % 20.9 % 24.0-44.0 Below low normal Lymph % [place] ( [facility]) mono % 4.8 % 2.0-8.0 [place] % [place] ([facility]) baso % 0.4 % 0.0-1.0 Baso % [place] ([facility]) eos % 2.0 % 0.0-3.0 Eos % [place] ([facility]) nucleated red blood cell % 0.0 % 0-0 Nucleated Red Blood Cell % [place] ([facility]) immature granulocyte % 0.4 % 0-3.0 Immature Gran ulocyte % [place] ([facility]) neutrophils # 5.4 10 1.5-8.5 Neutrophils # [place] ( [facility]) lymph # 1.6 10 1.5-5.0 Lymph # [place] ([facility]) mono # 0.4 10 0.0-0.8 [place] # [place] ([facility]) eos # 0.2 10 0.0-0.5 Eos # [place] ([facility]) baso # 0.0 10 0.0-0.2 Baso # [place] ([facility]) ID Date Data Source [id number] 08/09/2020 07:24:00 PM EDT [place] ([facility]) Name Value Range Interpretation Code Description Data Libia rce(s) Supporting Document(s) syphilis nonreactive nonreactive Syphilis [place] ([facility]) ID Date Data Source [id number] 08/09/2020 07:24:00 PM EDT [place] ([facility]) Name Value Range Interpretation Code Description Data Libia rce(s) Supporting Document(s) AST/SGOT 7 U/L 7-37 AST/SGOT [place] ([facility]) alkaline phosphatase 56 U/L 45-117 Alkaline Phosph atase [place] ([facility]) ALT/SGPT 15 U/L 12-78 ALT/SGPT [place] ([facility]) bilirubin,total 0.6 mg/dL 0.2-1.0 Bilirubin,total [place] ([facility]) bilirubin,direct 0.2 mg/dL 0.0-0.2 Bilirubin,direct AT [facility] ([facility]) total protein 6.8 gm/dL 6.4-8.2 Total Protein [place] ( [facility]) albumin 4.1 gm/dL 3.2-5.2 Albumin [place] ([facility]) albumin/globulin ratio 1.2-2.2 Albumin/globu dyana Ratio [place] ([facility]) ID Date Data Source [id number] 08/09/2020 07:24:00 PM EDT [place] ([facility]) Name Value Range Interpretation Code Description Data Libia rce(s) Supporting Document(s) white blood count 7.6 10 4.0-10.0 White Blood Count [place] ([facility]) red blood count 4.40 10 4.00-5.40 Red Blood Count [facility] ([facility]) hematocrit 40.5 % 36.0-47.0 Hematocrit [place] ([facility]) hemoglobin 12.9 g/dL 12.0-15.5 Hemoglobin [place] ([facility]) mean corpuscular hemoglobin 29.3 pg 27.0-33.0 Mean Cor puscular Hemoglobin [place] ([facility]) mean corpuscular volume 92.0 fL 80.0-96.0 Mean Corpusc ular Volume [place] ([facility]) red cell distribution width 14.4 % 11.5-14.5 Red Cell Distribution Width [place] ([facility]) mean corpuscular HGB conc 31.9 g/dL 32.0-36.5 Below low maira l Mean Corpuscular HGB Conc [place] ([facility]) neutrophils % 71.5 % 36.0-66.0 Above high normal Neutrophils % [place] ([facility]) lymph % 20.9 % 24.0-44.0 Below low normal Lymph % [place] ( [facility]) platelet count, automated 262 10 150-450 Platelet C ount, Automated [place] ([facility]) eos % 2.0 % 0.0-3.0 Eos % [place] ([facility]) mono % 4.8 % 2.0-8.0 [place] % [place] ([facility]) immature granulocyte % 0.4 % 0-3.0 Immature Gran ulocyte % [place] ([facility]) baso % 0.4 % 0.0-1.0 Baso % [place] ([facility]) neutrophils # 5.4 10 1.5-8.5 Neutrophils # [place] ( [facility]) nucleated red blood cell % 0.0 % 0-0 Nucleated Red Blood Cell % [place] ([facility]) lymph # 1.6 10 1.5-5.0 Lymph # [place] ([facility]) mono # 0.4 10 0.0-0.8 [place] # [place] ([facility]) eos # 0.2 10 0.0-0.5 Eos # [place] ([facility]) baso # 0.0 10 0.0-0.2 Baso # [place] ([facility]) ID Date Data Source [id number] 08/09/2020 07:24:00 PM EDT [place] ([facility]) Name Value Range Interpretation Code Description Data Libia rce(s) Supporting Document(s) syphilis nonreactive nonreactive Syphilis [place] ([facility]) ID Date Data Source [id number] 08/09/2020 07:24:00 PM EDT [place] ([facility]) Name Value Range Interpretation Code Description Data Libia rce(s) Supporting Document(s) ALT/SGPT 15 U/L 12-78 ALT/SGPT [place] ([facility]) AST/SGOT 7 U/L 7-37 AST/SGOT [place] ([facility]) bilirubin,total 0.6 mg/dL 0.2-1.0 Bilirubin,total [place] ([facility]) alkaline phosphatase 56 U/L 45-117 Alkaline Phosph atase [place] ([facility]) albumin 4.1 gm/dL 3.2-5.2 Albumin [place] ([facility]) total protein 6.8 gm/dL 6.4-8.2 Total Protein [place] ( [facility]) bilirubin,direct 0.2 mg/dL 0.0-0.2 Bilirubin,direct AT [facility] ([facility]) albumin/globulin ratio 1.2-2.2 Albumin/globu dyana Ratio [place] ([facility]) ID Date Data Source [id number] 08/09/2020 07:24:00 PM EDT [place] ([facility]) Name Value Range Interpretation Code Description Data Libia rce(s) Supporting Document(s) white blood count 7.6 10 4.0-10.0 White Blood Count [place] ([facility]) red blood count 4.40 10 4.00-5.40 Red Blood Count [place] ([facility]) hemoglobin 12.9 g/dL 12.0-15.5 Hemoglobin [place] ([facility]) hematocrit 40.5 % 36.0-47.0 Hematocrit [place] ([facility]) mean corpuscular volume 92.0 fL 80.0-96.0 Mean Corpusc ular Volume [place] ([facility]) mean corpuscular HGB conc 31.9 g/dL 32.0-36.5 Below low maira l Mean Corpuscular HGB Conc [place] ([facility]) mean corpuscular hemoglobin 29.3 pg 27.0-33.0 Mean Cor puscular Hemoglobin [place] ([facility]) neutrophils % 71.5 % 36.0-66.0 Above high normal Neutrophils % [place] ([facility]) red cell distribution width 14.4 % 11.5-14.5 Red Cell Distribution Width [place] ([facility]) platelet count, automated 262 10 150-450 Platelet C ount, Automated [place] ([facility]) mono % 4.8 % 2.0-8.0 [place] % [place] ([facility]) lymph % 20.9 % 24.0-44.0 Below low normal Lymph % [place] ( [facility]) eos % 2.0 % 0.0-3.0 Eos % [place] ([facility]) baso % 0.4 % 0.0-1.0 Baso % [place] ([facility]) immature granulocyte % 0.4 % 0-3.0 Immature Gran ulocyte % [place] ([facility]) neutrophils # 5.4 10 1.5-8.5 Neutrophils # [place] ( [facility]) nucleated red blood cell % 0.0 % 0-0 Nucleated Red Blood Cell % [place] ([facility]) lymph # 1.6 10 1.5-5.0 Lymph # [place] ([facility]) mono # 0.4 10 0.0-0.8 [place] # [place] ([facility]) eos # 0.2 10 0.0-0.5 Eos # [place] ([facility]) baso # 0.0 10 0.0-0.2 Baso # [place] ([facility]) ID Date Data Source [id number] 08/09/2020 07:24:00 PM EDT [place] ([facility]) Name Value Range Interpretation Code Description Data Libia rce(s) Supporting Document(s) syphilis nonreactive nonreactive Syphilis [place] ([facility]) ID Date Data Source [id number] 08/09/2020 07:24:00 PM EDT [place] ([facility]) Name Value Range Interpretation Code Description Data Libia rce(s) Supporting Document(s) AST/SGOT 7 U/L 7-37 AST/SGOT [place] ([facility]) ALT/SGPT 15 U/L 12-78 ALT/SGPT [place] ([facility]) alkaline phosphatase 56 U/L 45-117 Alkaline Phosph atase [place] ([facility]) bilirubin,total 0.6 mg/dL 0.2-1.0 Bilirubin,total [facility] ([facility]) bilirubin,direct 0.2 mg/dL 0.0-0.2 Bilirubin,direct AT [place] ([facility]) total protein 6.8 gm/dL 6.4-8.2 Total Protein [place] ( [facility]) albumin 4.1 gm/dL 3.2-5.2 Albumin [place] ([facility]) albumin/globulin ratio 1.2-2.2 Albumin/globu dyana Ratio [place] ([facility]) ID Date Data Source [id number] 08/09/2020 07:24:00 PM EDT [place] ([facility]) Name Value Range Interpretation Code Description Data Libia rce(s) Supporting Document(s) white blood count 7.6 10 4.0-10.0 White Blood Count [place] ([facility]) hemoglobin 12.9 g/dL 12.0-15.5 Hemoglobin [place] ([facility]) hematocrit 40.5 % 36.0-47.0 Hematocrit [place] ([facility]) red blood count 4.40 10 4.00-5.40 Red Blood Count [place] ([facility]) mean corpuscular volume 92.0 fL 80.0-96.0 Mean Corpusc ular Volume [place] ([facility]) mean corpuscular hemoglobin 29.3 pg 27.0-33.0 Mean Cor puscular Hemoglobin [place] ([facility]) red cell distribution width 14.4 % 11.5-14.5 Red Cell Distribution Width [place] ([facility]) mean corpuscular HGB conc 31.9 g/dL 32.0-36.5 Below low maira l Mean Corpuscular HGB Conc [place] ([facility]) lymph % 20.9 % 24.0-44.0 Below low normal Lymph % [place] ( [facility]) neutrophils % 71.5 % 36.0-66.0 Above high normal Neutrophils % [place] ([facility]) platelet count, automated 262 10 150-450 Platelet C ount, Automated [place] ([facility]) eos % 2.0 % 0.0-3.0 Eos % [place] ([facility]) mono % 4.8 % 2.0-8.0 [place] % [place] ([facility]) baso % 0.4 % 0.0-1.0 Baso % [place] ([facility]) immature granulocyte % 0.4 % 0-3.0 Immature Gran ulocyte % [place] ([facility]) neutrophils # 5.4 10 1.5-8.5 Neutrophils # [place] ( [facility]) lymph # 1.6 10 1.5-5.0 Lymph # [place] ([facility]) nucleated red blood cell % 0.0 % 0-0 Nucleated Red Blood Cell % [place] ([facility]) eos # 0.2 10 0.0-0.5 Eos # [place] ([facility]) mono # 0.4 10 0.0-0.8 [place] # [place] ([facility]) baso # 0.0 10 0.0-0.2 Baso # [place] ([facility]) ID Date Data Source [id number] 08/09/2020 07:24:00 PM EDT [place] ([facility]) Name Value Range Interpretation Code Description Data Libia rce(s) Supporting Document(s) syphilis nonreactive nonreactive Syphilis [place] ([facility]) ID Date Data Source [id number] 08/09/2020 07:24:00 PM EDT [place] ([facility]) Name Value Range Interpretation Code Description Data Libia rce(s) Supporting Document(s) AST/SGOT 7 U/L 7-37 AST/SGOT [place] ([facility]) alkaline phosphatase 56 U/L 45-117 Alkaline Phosph atase [place] ([facility]) ALT/SGPT 15 U/L 12-78 ALT/SGPT [place] ([facility]) bilirubin,direct 0.2 mg/dL 0.0-0.2 Bilirubin,direct AT [place] ([facility]) bilirubin,total 0.6 mg/dL 0.2-1.0 Bilirubin,total [facility] ([facility]) albumin 4.1 gm/dL 3.2-5.2 Albumin [place] ([facility]) total protein 6.8 gm/dL 6.4-8.2 Total Protein [place] ( [facility]) albumin/globulin ratio 1.2-2.2 Albumin/globu dyana Ratio [place] ([facility]) ID Date Data Source [id number] 08/09/2020 07:24:00 PM EDT [place] ([facility]) Name Value Range Interpretation Code Description Data Libia rce(s) Supporting Document(s) white blood count 7.6 10 4.0-10.0 White Blood Count [place] ([facility]) hemoglobin 12.9 g/dL 12.0-15.5 Hemoglobin [place] ([facility]) red blood count 4.40 10 4.00-5.40 Red Blood Count [place] ([facility]) hematocrit 40.5 % 36.0-47.0 Hematocrit [place] ([facility]) mean corpuscular volume 92.0 fL 80.0-96.0 Mean Corpusc ular Volume [place] ([facility]) mean corpuscular hemoglobin 29.3 pg 27.0-33.0 Mean Cor puscular Hemoglobin [place] ([facility]) red cell distribution width 14.4 % 11.5-14.5 Red Cell Distribution Width [place] ([facility]) mean corpuscular HGB conc 31.9 g/dL 32.0-36.5 Below low maira l Mean Corpuscular HGB Conc [place] ([facility]) neutrophils % 71.5 % 36.0-66.0 Above high normal Neutrophils % [place] ([facility]) platelet count, automated 262 10 150-450 Platelet C ount, Automated [place] ([facility]) lymph % 20.9 % 24.0-44.0 Below low normal Lymph % [place] ( [facility]) mono % 4.8 % 2.0-8.0 [place] % [place] ([facility]) eos % 2.0 % 0.0-3.0 Eos % [place] ([facility]) immature granulocyte % 0.4 % 0-3.0 Immature Gran ulocyte % [place] ([facility]) baso % 0.4 % 0.0-1.0 Baso % [place] ([facility]) nucleated red blood cell % 0.0 % 0-0 Nucleated Red Blood Cell % [place] ([facility]) neutrophils # 5.4 10 1.5-8.5 Neutrophils # [place] ( [facility]) mono # 0.4 10 0.0-0.8 [place] # [place] ([facility]) lymph # 1.6 10 1.5-5.0 Lymph # [place] ([facility]) eos # 0.2 10 0.0-0.5 Eos # [place] ([facility]) baso # 0.0 10 0.0-0.2 Baso # [place] ([facility]) ID Date Data Source [id number] 08/09/2020 07:24:00 PM EDT [place] ([facility]) Name Value Range Interpretation Code Description Data Libia rce(s) Supporting Document(s) syphilis nonreactive nonreactive Syphilis [place] ([facility]) ID Date Data Source [id number] 08/09/2020 07:24:00 PM EDT [place] ([facility]) Name Value Range Interpretation Code Description Data Libia rce(s) Supporting Document(s) AST/SGOT 7 U/L 7-37 AST/SGOT [place] ([facility]) alkaline phosphatase 56 U/L 45-117 Alkaline Phosph atase [place] ([facility]) ALT/SGPT 15 U/L 12-78 ALT/SGPT [place] ([facility]) bilirubin,direct 0.2 mg/dL 0.0-0.2 Bilirubin,direct AT [place] ([facility]) bilirubin,total 0.6 mg/dL 0.2-1.0 Bilirubin,total [place] ([facility]) total protein 6.8 gm/dL 6.4-8.2 Total Protein [place] ( [facility]) albumin 4.1 gm/dL 3.2-5.2 Albumin [place] ([facility]) albumin/globulin ratio 1.2-2.2 Albumin/globu dyana Ratio [place] ([facility]) ID Date Data Source [id number] 08/09/2020 07:24:00 PM EDT [place] ([facility]) Name Value Range Interpretation Code Description Data Libia rce(s) Supporting Document(s) red blood count 4.40 10 4.00-5.40 Red Blood Count [place] ([facility]) white blood count 7.6 10 4.0-10.0 White Blood Count [place] ([facility]) hemoglobin 12.9 g/dL 12.0-15.5 Hemoglobin [place] ([facility]) hematocrit 40.5 % 36.0-47.0 Hematocrit [place] ([facility]) mean corpuscular volume 92.0 fL 80.0-96.0 Mean Corpusc ular Volume [place] ([facility]) mean corpuscular hemoglobin 29.3 pg 27.0-33.0 Mean Cor puscular Hemoglobin [place] ([facility]) mean corpuscular HGB conc 31.9 g/dL 32.0-36.5 Below low maira l Mean Corpuscular HGB Conc [place] ([facility]) red cell distribution width 14.4 % 11.5-14.5 Red Cell Distribution Width [place] ([facility]) platelet count, automated 262 10 150-450 Platelet C ount, Automated [place] ([facility]) lymph % 20.9 % 24.0-44.0 Below low normal Lymph % [place] ( [facility]) neutrophils % 71.5 % 36.0-66.0 Above high normal Neutrophils % [place] ([facility]) eos % 2.0 % 0.0-3.0 Eos % [place] ([facility]) mono % 4.8 % 2.0-8.0 [place] % [place] ([facility]) immature granulocyte % 0.4 % 0-3.0 Immature Gran ulocyte % [place] ([facility]) baso % 0.4 % 0.0-1.0 Baso % [place] ([facility]) neutrophils # 5.4 10 1.5-8.5 Neutrophils # [place] ( [facility]) nucleated red blood cell % 0.0 % 0-0 Nucleated Red Blood Cell % [place] ([facility]) lymph # 1.6 10 1.5-5.0 Lymph # [place] ([facility]) eos # 0.2 10 0.0-0.5 Eos # [place] ([facility]) mono # 0.4 10 0.0-0.8 [place] # [place] ([facility]) baso # 0.0 10 0.0-0.2 Baso # [place] ([facility]) ID Date Data Source [id number] 08/09/2020 07:24:00 PM EDT [place] ([facility]) Name Value Range Interpretation Code Description Data Libia rce(s) Supporting Document(s) syphilis nonreactive nonreactive Syphilis [place] ([facility]) ID Date Data Source [id number] 08/09/2020 07:24:00 PM EDT [place] ([facility]) Name Value Range Interpretation Code Description Data Libia rce(s) Supporting Document(s) AST/SGOT 7 U/L 7-37 AST/SGOT [place] ([facility]) alkaline phosphatase 56 U/L 45-117 Alkaline Phosph atase [place] ([facility]) ALT/SGPT 15 U/L 12-78 ALT/SGPT [place] ([facility]) bilirubin,total 0.6 mg/dL 0.2-1.0 Bilirubin,total [facility] ([facility]) bilirubin,direct 0.2 mg/dL 0.0-0.2 Bilirubin,direct AT [facility]) total protein 6.8 gm/dL 6.4-8.2 Total Protein [place] ( [facility]) albumin 4.1 gm/dL 3.2-5.2 Albumin [place] ([facility]) albumin/globulin ratio 1.2-2.2 Albumin/globu dyana Ratio [place] ([facility]) ID Date Data Source [id number] 08/09/2020 07:24:00 PM EDT [place] ([facility]) Name Value Range Interpretation Code Description Data Libia rce(s) Supporting Document(s) red blood count 4.40 10 4.00-5.40 Red Blood Count [facility] ([facility]) white blood count 7.6 10 4.0-10.0 White Blood Count [place] ([facility]) hemoglobin 12.9 g/dL 12.0-15.5 Hemoglobin [place] ([facility]) mean corpuscular volume 92.0 fL 80.0-96.0 Mean Corpusc ular Volume [place] ([facility]) hematocrit 40.5 % 36.0-47.0 Hematocrit [place] ([facility]) mean corpuscular HGB conc 31.9 g/dL 32.0-36.5 Below low maira l Mean Corpuscular HGB Conc [place] ([facility]) mean corpuscular hemoglobin 29.3 pg 27.0-33.0 Mean Cor puscular Hemoglobin [place] ([facility]) red cell distribution width 14.4 % 11.5-14.5 Red Cell Distribution Width [place] ([facility]) platelet count, automated 262 10 150-450 Platelet C ount, Automated [place] ([facility]) neutrophils % 71.5 % 36.0-66.0 Above high normal Neutrophils % [place] ([facility]) lymph % 20.9 % 24.0-44.0 Below low normal Lymph % [place] ( [facility]) eos % 2.0 % 0.0-3.0 Eos % [place] ([facility]) mono % 4.8 % 2.0-8.0 [place] % [place] ([facility]) baso % 0.4 % 0.0-1.0 Baso % [place] ([facility]) immature granulocyte % 0.4 % 0-3.0 Immature Gran ulocyte % [place] ([facility]) nucleated red blood cell % 0.0 % 0-0 Nucleated Red Blood Cell % [place] ([facility]) lymph # 1.6 10 1.5-5.0 Lymph # [place] ([facility]) neutrophils # 5.4 10 1.5-8.5 Neutrophils # [place] ( [facility]) baso # 0.0 10 0.0-0.2 Baso # [place] ([facility]) mono # 0.4 10 0.0-0.8 [place] # [place] ([facility]) eos # 0.2 10 0.0-0.5 Eos # [place] ([facility]) ID Date Data Source [id number] 08/09/2020 07:24:00 PM EDT [place] ([facility]) Name Value Range Interpretation Code Description Data Libia rce(s) Supporting Document(s) syphilis nonreactive nonreactive Syphilis [place] ([facility]) ID Date Data Source [id number] 08/09/2020 07:24:00 PM EDT [place] ([facility]) Name Value Range Interpretation Code Description Data Libia rce(s) Supporting Document(s) AST/SGOT 7 U/L 7-37 AST/SGOT [place] ([facility]) alkaline phosphatase 56 U/L 45-117 Alkaline Phosph atase [place] ([facility]) ALT/SGPT 15 U/L 12-78 ALT/SGPT [place] ([facility]) bilirubin,total 0.6 mg/dL 0.2-1.0 Bilirubin,total [facility] ([facility]) bilirubin,direct 0.2 mg/dL 0.0-0.2 Bilirubin,direct AT [facility] ([facility]) albumin/globulin ratio 1.2-2.2 Albumin/globu dyana Ratio [place] ([facility]) total protein 6.8 gm/dL 6.4-8.2 Total Protein [place] ( [facility]) albumin 4.1 gm/dL 3.2-5.2 Albumin [place] ([facility]) ID Date Data Source [id number] 08/09/2020 07:24:00 PM EDT [place] ([facility]) Name Value Range Interpretation Code Description Data Libia rce(s) Supporting Document(s) white blood count 7.6 10 4.0-10.0 White Blood Count [place] ([facility]) red blood count 4.40 10 4.00-5.40 Red Blood Count [facility] ([facility]) hemoglobin 12.9 g/dL 12.0-15.5 Hemoglobin [place] ([facility]) mean corpuscular volume 92.0 fL 80.0-96.0 Mean Corpusc ular Volume [facility] ([facility]) hematocrit 40.5 % 36.0-47.0 Hematocrit [facility] ([facility]) mean corpuscular hemoglobin 29.3 pg 27.0-33.0 Mean Cor puscular Hemoglobin [facility] ([facility]) mean corpuscular HGB conc 31.9 g/dL 32.0-36.5 Below low maira l Mean Corpuscular HGB Conc [facility] ([facility]) platelet count, automated 262 10 150-450 Platelet C ount, Automated [place] ([facility]) neutrophils % 71.5 % 36.0-66.0 Above high normal Neutrophils % [place] ([facility]) red cell distribution width 14.4 % 11.5-14.5 Red Cell Distribution Width [place] ([facility]) mono % 4.8 % 2.0-8.0 [place] % [place] ([facility]) lymph % 20.9 % 24.0-44.0 Below low normal Lymph % [place] ( [facility]) eos % 2.0 % 0.0-3.0 Eos % [place] ([facility]) baso % 0.4 % 0.0-1.0 Baso % [place] ([facility]) nucleated red blood cell % 0.0 % 0-0 Nucleated Red Blood Cell % [place] ([facility]) immature granulocyte % 0.4 % 0-3.0 Immature Gran ulocyte % [place] ([facility]) neutrophils # 5.4 10 1.5-8.5 Neutrophils # [place] ( [facility]) lymph # 1.6 10 1.5-5.0 Lymph # [place] ([facility]) mono # 0.4 10 0.0-0.8 [place] # [place] ([facility]) eos # 0.2 10 0.0-0.5 Eos # [place] ([facility]) baso # 0.0 10 0.0-0.2 Baso # [place] ([facility]) ID Date Data Source [id number] 08/09/2020 06:49:00 PM EDT [place] ([facility]) Name Value Range Interpretation Code Description Data Libia rce(s) Supporting Document(s) chlamydia DNA amplification negative negative Chlamydi a DNA Amplification [place] ([facility]) GC DNA amplification negative negative GC DNA Amplific ation [place] ([facility]) trichomonas vaginalis (amp) not detected negative Tricho monas Vaginalis (Amp) [place] ([facility]) ID Date Data Source [id number] 08/09/2020 06:49:00 PM EDT [place] ([facility]) Name Value Range Interpretation Code Description Data Libia rce(s) Supporting Document(s) appearance, urine rfx clear clear Appearance, Ur ine Rfx [facility]) color, urine rfx yellow yellow Color, Urine Rfx AT [facility] ([facility]) pH,urine rfx 6.0 units 5.0-9.0 pH,urine Rfx [place] [facility] specific gravity ur auto rfx 1.002-1.035 Specif ic [place] Ur Auto Rfx [place] ([facility]) protein, urine auto rfx negative negative Protein, Uri ne Auto Rfx [place] ([facility]) glucose, urine (UA) auto rfx negative negative Glucose , Urine (UA) Auto Rfx [place] ([facility]) ketone, urine auto rfx negative negative Ketone, Urine Auto Rfx [place] ([facility]) urobilinogen, urine auto rfx 0.2 mg/dL 0.0-2.0 Urobili nogen, Urine Auto Rfx [place] ([facility]) bilirubin, urine auto rfx negative negative Bilirubin, Urine Auto Rfx [place] ([facility]) nitrite, urine auto rfx negative negative Nitrite, Uri ne Auto Rfx [place] ([facility]) leukocyte esterase ur auto rfx negative negative Leukocyte Esterase Ur Auto Rfx [place] ([facility]) blood, urine blood rfx 3+ negative Above high normal Blood, Urine Blood Rfx [place] ([facility]) WBC, urine auto rfx 2 /hpf 0-3 WBC, Urine Auto Rfx [place] ([facility]) RBC, urine auto rfx 1 /hpf 0-3 RBC, Urine Auto Rfx [place] ([facility]) bacteria, urine auto rfx negative negative Bacteria, U rine Auto Rfx [place] ([facility]) squam epithelial cell ur aurfx 4 /hpf 0-6 Squam Epithelial Cell Ur Aurfx [place] ([facility]) mucus, urine rfx small negative Mucus, Urine Rfx AT [facility] ([facility]) hyaline cast, urine auto rfx 0 /lpf 0-1 Hyaline Cast, Urine Auto Rfx [facility]) ID Date Data Source [id number] 08/09/2020 06:49:00 PM EDT [place] ([facility]) Name Value Range Interpretation Code Description Data Libia rce(s) Supporting Document(s) chlamydia DNA amplification negative negative Chlamydi a DNA Amplification [place] ([facility]) GC DNA amplification negative negative GC DNA Amplific ation [place] ([facility]) trichomonas vaginalis (amp) not detected negative Tricho monas Vaginalis (Amp) [place] ([facility]) ID Date Data Source [id number] 08/09/2020 06:49:00 PM EDT [place] ([facility]) Name Value Range Interpretation Code Description Data Libia rce(s) Supporting Document(s) appearance, urine rfx clear clear Appearance, Ur ine Rfx [place] ([facility]) pH,urine rfx 6.0 units 5.0-9.0 pH,urine Rfx [place] (No [facility]) color, urine rfx yellow yellow Color, Urine Rfx AT [place] ([facility]) protein, urine auto rfx negative negative Protein, Uri ne Auto Rfx [place] ([facility]) specific gravity ur auto rfx 1.002-1.035 Specif ic [place] Ur Auto Rfx [place] ([facility]) ketone, urine auto rfx negative negative Ketone, Urine Auto Rfx [place] ([facility]) glucose, urine (UA) auto rfx negative negative Glucose , Urine (UA) Auto Rfx [place] ([facility]) bilirubin, urine auto rfx negative negative Bilirubin, Urine Auto Rfx [place] ([facility]) nitrite, urine auto rfx negative negative Nitrite, Uri ne Auto Rfx [place] ([facility]) urobilinogen, urine auto rfx 0.2 mg/dL 0.0-2.0 Urobili nogen, Urine Auto Rfx [place] ([facility]) blood, urine blood rfx 3+ negative Above high normal Blood, Urine Blood Rfx [place] ([facility]) leukocyte esterase ur auto rfx negative negative Leukocyte Esterase Ur Auto Rfx [place] ([facility]) WBC, urine auto rfx 2 /hpf 0-3 [facility]BC, [facility] RBC, urine auto rfx 1 /hpf 0-3 RBC, Urine Auto Rfx [place] ([facility]) squam epithelial cell ur aurfx 4 /hpf 0-6 Squam Epithelial Cell Ur Aurfx [place] ([facility]) bacteria, urine auto rfx negative negative Bacteria, U rine Auto Rfx [place] ([facility]) hyaline cast, urine auto rfx 0 /lpf 0-1 Hyaline Cast, Urine Auto Rfx [place] ([facility]) mucus, urine rfx small negative Mucus, Urine Rfx AT [facility]) ID Date Data Source [id number] 08/09/2020 06:49:00 PM EDT [facility]) Name Value Range Interpretation Code Description Data Libia rce(s) Supporting Document(s) chlamydia DNA amplification negative negative Chlamydi a DNA Amplification [place] ([facility]) GC DNA amplification negative negative GC DNA Amplific ation [place] ([facility]) trichomonas vaginalis (amp) not detected negative Tricho monas Vaginalis (Amp) [facility]) ID Date Data Source [id number] 08/09/2020 06:49:00 PM EDT [facility]) Name Value Range Interpretation Code Description Data Libia rce(s) Supporting Document(s) appearance, urine rfx clear clear Appearance, Ur ine Rfx [place] ([facility]) color, urine rfx yellow yellow Color, Urine Rfx AT [facility] ([facility]) pH,urine rfx 6.0 units 5.0-9.0 pH,urine Rfx [place] ([facility]) specific gravity ur auto rfx 1.002-1.035 Specif ic [place] Ur Auto Rfx [place] ([facility]) protein, urine auto rfx negative negative Protein, Uri ne Auto Rfx [place] ([facility]) glucose, urine (UA) auto rfx negative negative Glucose , Urine (UA) Auto Rfx [place] ([facility]) ketone, urine auto rfx negative negative Ketone, Urine Auto Rfx [place] ([facility]) urobilinogen, urine auto rfx 0.2 mg/dL 0.0-2.0 Urobili nogen, Urine Auto Rfx [place] ([facility]) bilirubin, urine auto rfx negative negative Bilirubin, Urine Auto Rfx [place] ([facility]) nitrite, urine auto rfx negative negative Nitrite, Uri ne Auto Rfx [place] ([facility]) leukocyte esterase ur auto rfx negative negative Leukocyte Esterase Ur Auto Rfx [place] ([facility]) blood, urine blood rfx 3+ negative Above high normal Blood, Urine Blood Rfx [place] ([facility]) RBC, urine auto rfx 1 /hpf 0-3 RBC, Urine Auto Rfx [place] ([facility]) WBC, urine auto rfx 2 /hpf 0-3 WBC, Urine Auto Rfx [place] ([facility]) bacteria, urine auto rfx negative negative Bacteria, U rine Auto Rfx [place] ([facility]) squam epithelial cell ur aurfx 4 /hpf 0-6 Squam Epithelial Cell Ur Aurfx [place] ([facility]) hyaline cast, urine auto rfx 0 /lpf 0-1 Hyaline Cast, Urine Auto Rfx [place] ([facility]) mucus, urine rfx small negative Mucus, Urine Rfx AT [facility] ([facility]) ID Date Data Source [id number] 08/09/2020 06:49:00 PM EDT [place] ([facility]) Name Value Range Interpretation Code Description Data Libia rce(s) Supporting Document(s) trichomonas vaginalis (amp) not detected negative Tricho monas Vaginalis (Amp) [place] ([facility]) chlamydia DNA amplification negative negative Chlamydi a DNA Amplification [place] ([facility]) GC DNA amplification negative negative GC DNA Amplific ation [facility]) ID Date Data Source [id number] 08/09/2020 06:49:00 PM EDT [facility]) Name Value Range Interpretation Code Description Data Libia rce(s) Supporting Document(s) appearance, urine rfx clear clear Appearance, Ur ine Rfx [place] ([facility]) color, urine rfx yellow yellow Color, Urine Rfx AT [facility] ([facility]) specific gravity ur auto rfx 1.002-1.035 Specif ic [place] Ur Auto Rfx [place] ([facility]) pH,urine rfx 6.0 units 5.0-9.0 pH,urine Rfx [place] (No [facility]) glucose, urine (UA) auto rfx negative negative Glucose , Urine (UA) Auto Rfx [place] ([facility]) protein, urine auto rfx negative negative Protein, Uri ne Auto Rfx [place] ([facility]) ketone, urine auto rfx negative negative Ketone, Urine Auto Rfx [place] ([facility]) urobilinogen, urine auto rfx 0.2 mg/dL 0.0-2.0 Urobili nogen, Urine Auto Rfx [place] ([facility]) nitrite, urine auto rfx negative negative Nitrite, Uri ne Auto Rfx [place] ([facility]) bilirubin, urine auto rfx negative negative Bilirubin, Urine Auto Rfx [place] ([facility]) leukocyte esterase ur auto rfx negative negative Leukocyte Esterase Ur Auto Rfx [place] ([facility]) blood, urine blood rfx 3+ negative Above high normal Blood, Urine Blood Rfx [place] ([facility]) WBC, urine auto rfx 2 /hpf 0-3 WBC, Urine Auto Rfx [place] ([facility]) bacteria, urine auto rfx negative negative Bacteria, U rine Auto Rfx [place] ([facility]) RBC, urine auto rfx 1 /hpf 0-3 RBC, Urine Auto Rfx [place] ([facility]) squam epithelial cell ur aurfx 4 /hpf 0-6 Squam Epithelial Cell Ur Aurfx [place] ([facility]) mucus, urine rfx small negative Mucus, Urine Rfx AT [facility] ([facility]) hyaline cast, urine auto rfx 0 /lpf 0-1 Hyaline Cast, Urine Auto Rfx [place] ([facility]) ID Date Data Source [id number] 08/09/2020 06:49:00 PM EDT [facility]) Name Value Range Interpretation Code Description Data Libia rce(s) Supporting Document(s) GC DNA amplification negative negative GC DNA Amplific ation [place] ([facility]) chlamydia DNA amplification negative negative Chlamydi a DNA Amplification [place] ([facility]) trichomonas vaginalis (amp) not detected negative Tricho monas Vaginalis (Amp) [place] ([facility]) ID Date Data Source [id number] 08/09/2020 06:49:00 PM EDT [facility]) Name Value Range Interpretation Code Description Data Libia rce(s) Supporting Document(s) appearance, urine rfx clear clear Appearance, Ur ine Rfx [facility]) color, urine rfx yellow yellow Color, Urine Rfx [facility] ([facility]) pH,urine rfx 6.0 units 5.0-9.0 pH,urine Rfx [place] ([facility]) specific gravity ur auto rfx 1.002-1.035 Specif ic [place] Ur Auto Rfx [facility]) ketone, urine auto rfx negative negative Ketone, Urine Auto Rfx [facility]) protein, urine auto rfx negative negative Protein, Uri ne Auto Rfx [place] ([facility]) glucose, urine (UA) auto rfx negative negative Glucose , Urine (UA) Auto Rfx [facility]) urobilinogen, urine auto rfx 0.2 mg/dL 0.0-2.0 Urobili nogen, Urine Auto Rfx [facility]) bilirubin, urine auto rfx negative negative Bilirubin, Urine Auto Rfx [facility]) leukocyte esterase ur auto rfx negative negative Leukocyte Esterase Ur Auto Rfx [facility]) nitrite, urine auto rfx negative negative Nitrite, Uri ne Auto Rfx [place] ([facility]) blood, urine blood rfx 3+ negative Above high normal Blood, Urine Blood Rfx [place] ([facility]) WBC, urine auto rfx 2 /hpf 0-3 WBC, Urine Auto Rfx [place] ([facility]) bacteria, urine auto rfx negative negative Bacteria, U rine Auto Rfx [place] ([facility]) RBC, urine auto rfx 1 /hpf 0-3 RBC, Urine Auto Rfx [place] ([facility]) mucus, urine rfx small negative Mucus, Urine Rfx AT [facility] ([facility]) squam epithelial cell ur aurfx 4 /hpf 0-6 Squam Epithelial Cell Ur Aurfx [place] ([facility]) hyaline cast, urine auto rfx 0 /lpf 0-1 Hyaline Cast, Urine Auto Rfx [place] ([facility]) ID Date Data Source [id number] 08/09/2020 06:49:00 PM EDT [place] ([facility]) Name Value Range Interpretation Code Description Data Libia rce(s) Supporting Document(s) GC DNA amplification negative negative GC DNA Amplific ation [place] ([facility]) chlamydia DNA amplification negative negative Chlamydi a DNA Amplification [place] ([facility]) trichomonas vaginalis (amp) not detected negative Tricho monas Vaginalis (Amp) [facility]) ID Date Data Source [id number] 08/09/2020 06:49:00 PM EDT [facility]) Name Value Range Interpretation Code Description Data [place]ia rce(s) Supporting Document(s) appearance, urine rfx clear clear Appearance, Ur ine Rfx [place] ([facility]) pH,urine rfx 6.0 units 5.0-9.0 pH,urine Rfx [place] ([facility]) color, urine rfx yellow yellow Color, Urine Rfx AT [facility] ([facility]) protein, urine auto rfx negative negative Protein, Uri ne Auto Rfx [place] ([facility]) specific gravity ur auto rfx 1.002-1.035 Specif ic [place] Ur Auto Rfx [place] ([facility]) glucose, urine (UA) auto rfx negative negative Glucose , Urine (UA) Auto Rfx [place] ([facility]) ketone, urine auto rfx negative negative Ketone, Urine Auto Rfx [place] ([facility]) bilirubin, urine auto rfx negative negative Bilirubin, Urine Auto Rfx [place] ([facility]) urobilinogen, urine auto rfx 0.2 mg/dL 0.0-2.0 Urobili nogen, Urine Auto Rfx [place] ([facility]) nitrite, urine auto rfx negative negative Nitrite, Uri ne Auto Rfx [place] ([facility]) leukocyte esterase ur auto rfx negative negative Leukocyte Esterase Ur Auto Rfx [place] ([facility]) WBC, urine auto rfx 2 /hpf 0-3 WBC, Urine Auto Rfx [place] ([facility]) blood, urine blood rfx 3+ negative Above high normal Blood, Urine Blood Rfx [place] ([facility]) bacteria, urine auto rfx negative negative Bacteria, U rine Auto Rfx [place] ([facility]) RBC, urine auto rfx 1 /hpf 0-3 RBC, Urine Auto Rfx [place] ([facility]) squam epithelial cell ur aurfx 4 /hpf 0-6 Squam Epithelial Cell Ur Aurfx [place] ([facility]) mucus, urine rfx small negative Mucus, Urine Rfx AT [facility] ([facility]) hyaline cast, urine auto rfx 0 /lpf 0-1 Hyaline Cast, Urine Auto Rfx [place] ([facility]) ID Date Data Source [id number] 08/09/2020 06:49:00 PM EDT [place] ([facility]) Name Value Range Interpretation Code Description Data Libia rce(s) Supporting Document(s) GC DNA amplification negative negative GC DNA Amplific ation [place] ([facility]) chlamydia DNA amplification negative negative Chlamydi a DNA Amplification [place] ([facility]) trichomonas vaginalis (amp) not detected negative Tricho monas Vaginalis (Amp) [place] ([facility]) ID Date Data Source [id number] 08/09/2020 06:49:00 PM EDT [place] ([facility]) Name Value Range Interpretation Code Description Data [place] rce(s) Supporting Document(s) appearance, urine rfx clear clear Appearance, Ur ine Rfx [place] ([facility]) color, urine rfx yellow yellow Color, Urine Rfx AT [facility] ([facility]) specific gravity ur auto rfx 1.002-1.035 Specif ic [place] Ur Auto Rfx [place] ([facility]) pH,urine rfx 6.0 units 5.0-9.0 pH,urine Rfx [place] (No [facility]) glucose, urine (UA) auto rfx negative negative Glucose , Urine (UA) Auto Rfx [place] ([facility]) protein, urine auto rfx negative negative Protein, Uri ne Auto Rfx [place] ([facility]) ketone, urine auto rfx negative negative Ketone, Urine Auto Rfx [place] ([facility]) urobilinogen, urine auto rfx 0.2 mg/dL 0.0-2.0 Urobili nogen, Urine Auto Rfx [place] ([facility]) bilirubin, urine auto rfx negative negative Bilirubin, Urine Auto Rfx [place] ([facility]) leukocyte esterase ur auto rfx negative negative Leukocyte Esterase Ur Auto Rfx [place] ([facility]) nitrite, urine auto rfx negative negative Nitrite, Uri ne Auto Rfx [place] ([facility]) blood, urine blood rfx 3+ negative Above high normal Blood, Urine Blood Rfx [place] ([facility]) WBC, urine auto rfx 2 /hpf 0-3 WBC, Urine Auto Rfx [place] ([facility]) RBC, urine auto rfx 1 /hpf 0-3 RBC, Urine Auto Rfx [place] ([facility]) bacteria, urine auto rfx negative negative Bacteria, U rine Auto Rfx [place] ([facility]) squam epithelial cell ur aurfx 4 /hpf 0-6 Squam Epithelial Cell Ur Aurfx [place] ([facility]) mucus, urine rfx small negative Mucus, Urine Rfx AT [facility]) hyaline cast, urine auto rfx 0 /lpf 0-1 Hyaline Cast, Urine Auto Rfx [place] ([facility]) ID Date Data Source [id number] 08/09/2020 06:49:00 PM EDT [facility]) Name Value Range Interpretation Code Description Data [place]ia rce(s) Supporting Document(s) chlamydia DNA amplification negative negative Chlamydi a DNA Amplification [place] ([facility]) trichomonas vaginalis (amp) not detected negative Tricho monas Vaginalis (Amp) [place] ([facility]) GC DNA amplification negative negative GC DNA Amplific ation [facility]) ID Date Data Source [id number] 08/09/2020 06:49:00 PM EDT [place] ([facility]) Name Value Range Interpretation Code Description Data [place] rce(s) Supporting Document(s) appearance, urine rfx clear clear Appearance, Ur ine Rfx [facility]) color, urine rfx yellow yellow Color, Urine Rfx [facility] ([facility]) specific gravity ur auto rfx 1.002-1.035 Specif ic [place] Ur Auto Rfx [place] ([facility]) pH,urine rfx 6.0 units 5.0-9.0 pH,urine Rfx [place] (No [facility]) protein, urine auto rfx negative negative Protein, Uri ne Auto Rfx [place] ([facility]) ketone, urine auto rfx negative negative Ketone, Urine Auto Rfx [place] ([facility]) glucose, urine (UA) auto rfx negative negative Glucose , Urine (UA) Auto Rfx [place] ([facility]) urobilinogen, urine auto rfx 0.2 mg/dL 0.0-2.0 Urobili nogen, Urine Auto Rfx [facility]) bilirubin, urine auto rfx negative negative Bilirubin, Urine Auto Rfx [place] ([facility]) nitrite, urine auto rfx negative negative Nitrite, Uri ne Auto Rfx [place] ([facility]) leukocyte esterase ur auto rfx negative negative Leukocyte Esterase Ur Auto Rfx [place] ([facility]) blood, urine blood rfx 3+ negative Above high normal Blood, Urine Blood Rfx [place] ([facility]) WBC, urine auto rfx 2 /hpf 0-3 WBC, Urine Auto Rfx [place] ([facility]) RBC, urine auto rfx 1 /hpf 0-3 RBC, Urine Auto Rfx [place] ([facility]) bacteria, urine auto rfx negative negative Bacteria, U rine Auto Rfx [place] ([facility]) squam epithelial cell ur aurfx 4 /hpf 0-6 Squam Epithelial Cell Ur Aurfx [place] ([facility]) mucus, urine rfx small negative Mucus, Urine Rfx AT [facility]) hyaline cast, urine auto rfx 0 /lpf 0-1 Hyaline Cast, Urine Auto Rfx [place] ([facility]) ID Date Data Source [id number] 08/09/2020 06:49:00 PM EDT [place] ([facility]) Name Value Range Interpretation Code Description Data [place]ia rce(s) Supporting Document(s) trichomonas vaginalis (amp) not detected negative Tricho monas Vaginalis (Amp) [place] ([facility]) chlamydia DNA amplification negative negative Chlamydi a DNA Amplification [place] ([facility]) GC DNA amplification negative negative GC DNA Amplific ation [place] ([facility]) ID Date Data Source [id number] 08/09/2020 06:49:00 PM EDT [place] ([facility]) Name Value Range Interpretation Code Description Data [place]ia rce(s) Supporting Document(s) appearance, urine rfx clear clear Appearance, Ur ine Rfx [place] ([facility]) pH,urine rfx 6.0 units 5.0-9.0 pH,urine Rfx [place] ([facility]) color, urine rfx yellow yellow Color, Urine Rfx [facility] ([facility]) specific gravity ur auto rfx 1.002-1.035 Specif ic [place] Ur Auto Rfx [place] ([facility]) protein, urine auto rfx negative negative Protein, Uri ne Auto Rfx [place] ([facility]) ketone, urine auto rfx negative negative Ketone, Urine Auto Rfx [place] ([facility]) glucose, urine (UA) auto rfx negative negative Glucose , Urine (UA) Auto Rfx [place] ([facility]) bilirubin, urine auto rfx negative negative Bilirubin, Urine Auto Rfx [place] ([facility]) urobilinogen, urine auto rfx 0.2 mg/dL 0.0-2.0 Urobili nogen, Urine Auto Rfx [place] ([facility]) nitrite, urine auto rfx negative negative Nitrite, Uri ne Auto Rfx [place] ([facility]) leukocyte esterase ur auto rfx negative negative Leukocyte Esterase Ur Auto Rfx [place] ([facility]) blood, urine blood rfx 3+ negative Above high normal Blood, Urine Blood Rfx [place] ([facility]) WBC, urine auto rfx 2 /hpf 0-3 WBC, Urine Auto Rfx [place] ([facility]) bacteria, urine auto rfx negative negative Bacteria, U rine Auto Rfx [place] ([facility]) RBC, urine auto rfx 1 /hpf 0-3 RBC, Urine Auto Rfx [place] ([facility]) squam epithelial cell ur aurfx 4 /hpf 0-6 Squam Epithelial Cell Ur Aurfx [place] ([facility]) mucus, urine rfx small negative Mucus, Urine Rfx [facility] ([facility]) hyaline cast, urine auto rfx 0 /lpf 0-1 Hyaline Cast, Urine Auto Rfx [place] [facility] [facility]) ID Date Data Source [id number] 07/16/2020 01:50:00 PM EDT [place] ([facility]) Name Value Range Interpretation Code Description Data Libia rce(s) Supporting Document(s) appearance, urine rfx hazy clear Appearance, Ur ine Rfx [place] ([facility]) color, urine rfx yellow yellow Color, Urine Rfx AT [facility] ([facility]) pH,urine rfx 5.0 units 5.0-9.0 pH,urine Rfx [place] [facility] specific gravity ur auto rfx 1.002-1.035 Specif ic [place] Ur Auto Rfx [place] ([facility]) glucose, urine (UA) auto rfx negative negative Glucose , Urine (UA) Auto Rfx [place] ([facility]) protein, urine auto rfx 1+ negative Above high normal Prote in, Urine Auto Rfx [place] ([facility]) ketone, urine auto rfx 2+ negative Above high normal Ketone , Urine Auto Rfx [place] ([facility]) bilirubin, urine auto rfx negative negative Bilirubin, Urine Auto Rfx [place] ([facility]) urobilinogen, urine auto rfx 2.0 mg/dL 0.0-2.0 Above high n ormal Urobilinogen, Urine Auto Rfx [place] ([facility]) nitrite, urine auto rfx negative negative Nitrite, Uri ne Auto Rfx [place] ([facility]) leukocyte esterase ur auto rfx negative negative Leukocyte Esterase Ur Auto Rfx [place] ([facility]) WBC, urine auto rfx 1 /hpf 0-3 WBC, Urine Auto Rfx [place] ([facility]) blood, urine blood rfx negative negative Blood, Urine Blood Rfx [place] ([facility]) RBC, urine auto rfx 1 /hpf 0-3 RBC, Urine Auto Rfx [place] ([facility]) bacteria, urine auto rfx negative negative Bacteria, U rine Auto Rfx [place] ([facility]) squam epithelial cell ur aurfx 9 /hpf 0-6 Squam Epithelial Cell Ur Aurfx [place] ([facility]) mucus, urine rfx small negative Mucus, Urine Rfx AT [facility] ([facility]) hyaline cast, urine auto rfx 0 /lpf 0-1 Hyaline Cast, Urine Auto Rfx [place] ([facility]) ID Date Data Source [id number] 07/16/2020 01:50:00 PM EDT [place] ([facility]) Name Value Range Interpretation Code Description Data Libia rce(s) Supporting Document(s) istat B-HCG < 5.0 Istat B-HCG [place] ([facility]) ID Date Data Source [id number] 07/16/2020 01:50:00 PM EDT [place] ([facility]) Name Value Range Interpretation Code Description Data Libia rce(s) Supporting Document(s) pH,urine rfx 5.0 units 5.0-9.0 pH,urine Rfx [place] ([facility]) color, urine rfx yellow yellow Color, Urine Rfx AT [facility] ([facility]) appearance, urine rfx hazy clear Appearance, Ur ine Rfx [place] ([facility]) protein, urine auto rfx 1+ negative Above high normal Prote in, Urine Auto Rfx [place] ([facility]) specific gravity ur auto rfx 1.002-1.035 Specif ic [place] Ur Auto Rfx [place] ([facility]) urobilinogen, urine auto rfx 2.0 mg/dL 0.0-2.0 Above high n ormal Urobilinogen, Urine Auto Rfx [place] ([facility]) ketone, urine auto rfx 2+ negative Above high normal Ketone , Urine Auto Rfx [place] ([facility]) glucose, urine (UA) auto rfx negative negative Glucose , Urine (UA) Auto Rfx [place] ([facility]) nitrite, urine auto rfx negative negative Nitrite, Uri ne Auto Rfx [place] ([facility]) bilirubin, urine auto rfx negative negative Bilirubin, Urine Auto Rfx [place] ([facility]) leukocyte esterase ur auto rfx negative negative Leukocyte Esterase Ur Auto Rfx [place] ([facility]) WBC, urine auto rfx 1 /hpf 0-3 WBC, Urine Auto Rfx [place] ([facility]) blood, urine blood rfx negative negative Blood, Urine Blood Rfx [place] ([facility]) squam epithelial cell ur aurfx 9 /hpf 0-6 Squam Epithelial Cell Ur Aurfx [place] ([facility]) RBC, urine auto rfx 1 /hpf 0-3 RBC, Urine Auto Rfx [place] ([facility]) bacteria, urine auto rfx negative negative Bacteria, U rine Auto Rfx [place] ([facility]) mucus, urine rfx small negative Mucus, Urine Rfx AT [facility] ([facility]) hyaline cast, urine auto rfx 0 /lpf 0-1 Hyaline Cast, Urine Auto Rfx [place] ([facility]) ID Date Data Source [id number] 07/16/2020 01:50:00 PM EDT [facility]) Name Value Range Interpretation Code Description Data Libia rce(s) Supporting Document(s) istat B-HCG < 5.0 Istat B-HCG [place] ([facility]) ID Date Data Source [id number] 07/16/2020 01:50:00 PM EDT [facility]) Name Value Range Interpretation Code Description Data Libia rce(s) Supporting Document(s) pH,urine rfx 5.0 units 5.0-9.0 pH,urine Rfx [place] ([facility]) color, urine rfx yellow yellow Color, Urine Rfx AT [facility]) appearance, urine rfx hazy clear Appearance, Ur ine Rfx [place] ([facility]) protein, urine auto rfx 1+ negative Above high normal Prote in, Urine Auto Rfx [place] ([facility]) specific gravity ur auto rfx 1.002-1.035 Specif ic [place] Ur Auto Rfx [facility]) ketone, urine auto rfx 2+ negative Above high normal Ketone , Urine Auto Rfx [place] ([facility]) glucose, urine (UA) auto rfx negative negative Glucose , Urine (UA) Auto Rfx [place] ([facility]) bilirubin, urine auto rfx negative negative Bilirubin, Urine Auto Rfx [place] ([facility]) urobilinogen, urine auto rfx 2.0 mg/dL 0.0-2.0 Above high n ormal Urobilinogen, Urine Auto Rfx [place] ([facility]) nitrite, urine auto rfx negative negative Nitrite, Uri ne Auto Rfx [place] ([facility]) leukocyte esterase ur auto rfx negative negative Leukocyte Esterase Ur Auto Rfx [place] ([facility]) WBC, urine auto rfx 1 /hpf 0-3 WBC, Urine Auto Rfx [place] ([facility]) blood, urine blood rfx negative negative Blood, Urine Blood Rfx [place] ([facility]) bacteria, urine auto rfx negative negative Bacteria, U rine Auto Rfx [place] ([facility]) RBC, urine auto rfx 1 /hpf 0-3 RBC, Urine Auto Rfx [place] ([facility]) mucus, urine rfx small negative Mucus, Urine Rfx AT [facility] ([facility]) squam epithelial cell ur aurfx 9 /hpf 0-6 Squam Epithelial Cell Ur Aurfx [place] ([facility]) hyaline cast, urine auto rfx 0 /lpf 0-1 Hyaline Cast, Urine Auto Rfx [place] ([facility]) ID Date Data Source [id number] 07/16/2020 01:50:00 PM EDT [facility]) Name Value Range Interpretation Code Description Data Libia rce(s) Supporting Document(s) istat B-HCG < 5.0 Istat B-HCG [place] ([facility]) ID Date Data Source [id number] 07/16/2020 01:50:00 PM EDT [facility]) Name Value Range Interpretation Code Description Data Libia rce(s) Supporting Document(s) color, urine rfx yellow yellow Color, Urine Rfx AT [facility]) appearance, urine rfx hazy clear Appearance, Ur ine Rfx [place] ([facility]) pH,urine rfx 5.0 units 5.0-9.0 pH,urine Rfx [place] ([facility] specific gravity ur auto rfx 1.002-1.035 Specif ic [place] Ur Auto Rfx [place] ([facility]) protein, urine auto rfx 1+ negative Above high normal Prote in, Urine Auto Rfx [place] ([facility]) glucose, urine (UA) auto rfx negative negative Glucose , Urine (UA) Auto Rfx [place] ([facility]) ketone, urine auto rfx 2+ negative Above high normal Ketone , Urine Auto Rfx [place] ([facility]) urobilinogen, urine auto rfx 2.0 mg/dL 0.0-2.0 Above high n ormal Urobilinogen, Urine Auto Rfx [place] ([facility]) bilirubin, urine auto rfx negative negative Bilirubin, Urine Auto Rfx [place] ([facility]) leukocyte esterase ur auto rfx negative negative Leukocyte Esterase Ur Auto Rfx [place] ([facility]) nitrite, urine auto rfx negative negative Nitrite, Uri ne Auto Rfx [place] ([facility]) RBC, urine auto rfx 1 /hpf 0-3 RBC, Urine Auto Rfx [place] ([facility]) blood, urine blood rfx negative negative Blood, Urine Blood Rfx [place] ([facility]) WBC, urine auto rfx 1 /hpf 0-3 WBC, Urine Auto Rfx [place] ([facility]) mucus, urine rfx small negative Mucus, Urine Rfx AT [facility] ([facility]) bacteria, urine auto rfx negative negative Bacteria, U rine Auto Rfx [place] ([facility]) squam epithelial cell ur aurfx 9 /hpf 0-6 Squam Epithelial Cell Ur Aurfx [place] ([facility]) hyaline cast, urine auto rfx 0 /lpf 0-1 Hyaline Cast, Urine Auto Rfx [place] ([facility]) ID Date Data Source [id number] 07/16/2020 01:50:00 PM EDT [place] ([facility]) Name Value Range Interpretation Code Description Data Libia rce(s) Supporting Document(s) istat B-HCG < 5.0 Istat B-HCG [place] ([facility]) ID Date Data Source [id number] 07/16/2020 01:50:00 PM EDT [place] ([facility]) Name Value Range Interpretation Code Description Data Libia rce(s) Supporting Document(s) appearance, urine rfx hazy clear Appearance, Ur ine Rfx [place] ([facility]) color, urine rfx yellow yellow Color, Urine Rfx [facility] ([facility]) specific gravity ur auto rfx 1.002-1.035 Specif ic [place] Ur Auto Rfx [place] ([facility]) pH,urine rfx 5.0 units 5.0-9.0 pH,urine Rfx [place] ([facility] glucose, urine (UA) auto rfx negative negative Glucose , Urine (UA) Auto Rfx [place] ([facility]) protein, urine auto rfx 1+ negative Above high normal Prote in, Urine Auto Rfx [place] ([facility]) ketone, urine auto rfx 2+ negative Above high normal Ketone , Urine Auto Rfx [place] ([facility]) bilirubin, urine auto rfx negative negative Bilirubin, Urine Auto Rfx [place] ([facility]) urobilinogen, urine auto rfx 2.0 mg/dL 0.0-2.0 Above high n ormal Urobilinogen, Urine Auto Rfx [place] ([facility]) blood, urine blood rfx negative negative Blood, Urine Blood Rfx [place] ([facility]) nitrite, urine auto rfx negative negative Nitrite, Uri ne Auto Rfx [place] ([facility]) leukocyte esterase ur auto rfx negative negative Leukocyte Esterase Ur Auto Rfx [place] ([facility]) bacteria, urine auto rfx negative negative Bacteria, U rine Auto Rfx [place] ([facility]) RBC, urine auto rfx 1 /hpf 0-3 RBC, Urine Auto Rfx [place] ([facility]) WBC, urine auto rfx 1 /hpf 0-3 WBC, Urine Auto Rfx [place] ([facility]) squam epithelial cell ur aurfx 9 /hpf 0-6 Squam Epithelial Cell Ur Aurfx [place] ([facility]) hyaline cast, urine auto rfx 0 /lpf 0-1 Hyaline Cast, Urine Auto Rfx [place] ([facility]) mucus, urine rfx small negative Mucus, Urine Rfx AT [facility] ([facility]) ID Date Data Source [id number] 07/16/2020 01:50:00 PM EDT [place] ([facility]) Name Value Range Interpretation Code Description Data Libia rce(s) Supporting Document(s) istat B-HCG < 5.0 Istat B-HCG [place] ([facility]) ID Date Data Source [id number] 07/16/2020 01:50:00 PM EDT [place] ([facility]) Name Value Range Interpretation Code Description Data Libia rce(s) Supporting Document(s) appearance, urine rfx hazy clear Appearance, Ur ine Rfx [place] ([facility]) specific gravity ur auto rfx 1.002-1.035 Specif ic [place] Ur Auto Rfx [place] ([facility]) color, urine rfx yellow yellow Color, Urine Rfx AT [facility] ([facility]) pH,urine rfx 5.0 units 5.0-9.0 pH,urine Rfx [place] ([facility]) protein, urine auto rfx 1+ negative Above high normal Prote in, Urine Auto Rfx [place] ([facility]) glucose, urine (UA) auto rfx negative negative Glucose , Urine (UA) Auto Rfx [place] ([facility]) urobilinogen, urine auto rfx 2.0 mg/dL 0.0-2.0 Above high n ormal Urobilinogen, Urine Auto Rfx [place] ([facility]) ketone, urine auto rfx 2+ negative Above high normal Ketone , Urine Auto Rfx [place] ([facility]) bilirubin, urine auto rfx negative negative Bilirubin, Urine Auto Rfx [place] ([facility]) nitrite, urine auto rfx negative negative Nitrite, Uri ne Auto Rfx [place] ([facility]) leukocyte esterase ur auto rfx negative negative Leukocyte Esterase Ur Auto Rfx [place] ([facility]) RBC, urine auto rfx 1 /hpf 0-3 RBC, Urine Auto Rfx [place] ([facility]) WBC, urine auto rfx 1 /hpf 0-3 WBC, Urine Auto Rfx [place] ([facility]) blood, urine blood rfx negative negative Blood, Urine Blood Rfx [place] ([facility]) squam epithelial cell ur aurfx 9 /hpf 0-6 Squam Epithelial Cell Ur Aurfx [place] ([facility]) bacteria, urine auto rfx negative negative Bacteria, U rine Auto Rfx [place] ([facility]) mucus, urine rfx small negative Mucus, Urine Rfx AT [facility] ([facility]) hyaline cast, urine auto rfx 0 /lpf 0-1 Hyaline Cast, Urine Auto Rfx [place] ([facility]) ID Date Data Source [id number] 07/16/2020 01:50:00 PM EDT [facility]) Name Value Range Interpretation Code Description Data Libia rce(s) Supporting Document(s) istat B-HCG < 5.0 Istat B-HCG [place] ([facility]) ID Date Data Source [id number] 07/16/2020 01:50:00 PM EDT [facility]) Name Value Range Interpretation Code Description Data [place]ia rce(s) Supporting Document(s) appearance, urine rfx hazy clear Appearance, Ur ine Rfx [facility]) color, urine rfx yellow yellow Color, Urine Rfx AT [facility] ([facility]) specific gravity ur auto rfx 1.002-1.035 Specif ic [place] Ur Auto Rfx [place] ([facility]) pH,urine rfx 5.0 units 5.0-9.0 pH,urine Rfx [place] (No [facility]) glucose, urine (UA) auto rfx negative negative Glucose , Urine (UA) Auto Rfx [place] ([facility]) protein, urine auto rfx 1+ negative Above high normal Prote in, Urine Auto Rfx [place] ([facility]) bilirubin, urine auto rfx negative negative Bilirubin, Urine Auto Rfx [place] ([facility]) urobilinogen, urine auto rfx 2.0 mg/dL 0.0-2.0 Above high n ormal Urobilinogen, Urine Auto Rfx [place] ([facility]) ketone, urine auto rfx 2+ negative Above high normal Ketone , Urine Auto Rfx [place] ([facility]) nitrite, urine auto rfx negative negative Nitrite, Uri ne Auto Rfx [place] ([facility]) leukocyte esterase ur auto rfx negative negative Leukocyte Esterase Ur Auto Rfx [place] ([facility]) RBC, urine auto rfx 1 /hpf 0-3 RBC, Urine Auto Rfx [place] ([facility]) blood, urine blood rfx negative negative Blood, Urine Blood Rfx [place] ([facility]) WBC, urine auto rfx 1 /hpf 0-3 WBC, Urine Auto Rfx [place] ([facility]) bacteria, urine auto rfx negative negative Bacteria, U rine Auto Rfx [place] ([facility]) squam epithelial cell ur aurfx 9 /hpf 0-6 Squam Epithelial Cell Ur Aurfx [place] ([facility]) mucus, urine rfx small negative Mucus, Urine Rfx [facility] ([facility]) hyaline cast, urine auto rfx 0 /lpf 0-1 Hyaline Cast, Urine Auto Rfx [place] ([facility]) ID Date Data Source [id number] 07/16/2020 01:50:00 PM EDT [place] ([facility]) Name Value Range Interpretation Code Description Data Libia rce(s) Supporting Document(s) istat B-HCG < 5.0 Istat B-HCG [place] ([facility]) ID Date Data Source [id number] 07/16/2020 01:50:00 PM EDT [place] ([facility]) Name Value Range Interpretation Code Description Data [place]ia rce(s) Supporting Document(s) appearance, urine rfx hazy clear Appearance, Ur ine Rfx [place] ([facility]) color, urine rfx yellow yellow Color, Urine Rfx [facility] ([facility]) pH,urine rfx 5.0 units 5.0-9.0 pH,urine Rfx [place] (No [facility]) specific gravity ur auto rfx 1.002-1.035 Specif ic [place] Ur Auto Rfx [place] ([facility]) glucose, urine (UA) auto rfx negative negative Glucose , Urine (UA) Auto Rfx [place] ([facility]) protein, urine auto rfx 1+ negative Above high normal Prote in, Urine Auto Rfx [place] ([facility]) urobilinogen, urine auto rfx 2.0 mg/dL 0.0-2.0 Above high n ormal Urobilinogen, Urine Auto Rfx [place] ([facility]) ketone, urine auto rfx 2+ negative Above high normal Ketone , Urine Auto Rfx [place] ([facility]) bilirubin, urine auto rfx negative negative Bilirubin, Urine Auto Rfx [place] ([facility]) nitrite, urine auto rfx negative negative Nitrite, Uri ne Auto Rfx [place] ([facility]) leukocyte esterase ur auto rfx negative negative Leukocyte Esterase Ur Auto Rfx [place] ([facility]) blood, urine blood rfx negative negative Blood, Urine Blood Rfx [place] ([facility]) WBC, urine auto rfx 1 /hpf 0-3 WBC, Urine Auto Rfx [place] ([facility]) RBC, urine auto rfx 1 /hpf 0-3 RBC, Urine Auto Rfx [place] ([facility]) squam epithelial cell ur aurfx 9 /hpf 0-6 Squam Epithelial Cell Ur Aurfx [place] ([facility]) bacteria, urine auto rfx negative negative Bacteria, [facility] hyaline cast, urine auto rfx 0 /lpf 0-1 Hyaline Cast, Urine Auto Rfx [place] ([facility]) mucus, urine rfx small negative Mucus, Urine Rfx AT [facility]) ID Date Data Source [id number] 07/16/2020 01:50:00 PM EDT [place] ([facility]) Name Value Range Interpretation Code Description Data Libia rce(s) Supporting Document(s) istat B-HCG < 5.0 Istat B-HCG [place] ([facility]) ID Date Data Source [id number] 07/16/2020 01:50:00 PM EDT [place] ([facility]) Name Value Range Interpretation Code Description Data [place]ia rce(s) Supporting Document(s) appearance, urine rfx hazy clear Appearance, Ur ine Rfx [place] ([facility]) color, urine rfx yellow yellow Color, Urine Rfx [facility] ([facility]) pH,urine rfx 5.0 units 5.0-9.0 pH,urine Rfx [place] ([facility]) specific gravity ur auto rfx 1.002-1.035 Specif ic [place] Ur Auto Rfx [place] ([facility]) protein, urine auto rfx 1+ negative Above high normal Prote in, Urine Auto Rfx [place] ([facility]) glucose, urine (UA) auto rfx negative negative Glucose , Urine (UA) Auto Rfx [place] ([facility]) bilirubin, urine auto rfx negative negative Bilirubin, Urine Auto Rfx [place] ([facility]) ketone, urine auto rfx 2+ negative Above high normal Ketone , Urine Auto Rfx [place] ([facility]) urobilinogen, urine auto rfx 2.0 mg/dL 0.0-2.0 Above high n ormal Urobilinogen, Urine Auto Rfx [facility]) nitrite, urine auto rfx negative negative Nitrite, Uri ne Auto Rfx [place] ([facility]) leukocyte esterase ur auto rfx negative negative Leukocyte Esterase Ur Auto Rfx [place] ([facility]) RBC, urine auto rfx 1 /hpf 0-3 RBC, Urine Auto Rfx [place] ([facility]) WBC, urine auto rfx 1 /hpf 0-3 WBC, Urine Auto Rfx [place] ([facility]) blood, urine blood rfx negative negative Blood, Urine Blood Rfx [place] ([facility]) squam epithelial cell ur aurfx 9 /hpf 0-6 Squam Epithelial Cell Ur Aurfx [place] ([facility]) bacteria, urine auto rfx negative negative Bacteria, U rine Auto Rfx [place] ([facility]) mucus, urine rfx small negative Mucus, Urine Rfx AT [facility]) hyaline cast, urine auto rfx 0 /lpf 0-1 Hyaline Cast, Urine Auto Rfx [place] ([facility]) ID Date Data Source [id number] 07/16/2020 01:50:00 PM EDT [facility]) Name Value Range Interpretation Code Description Data [place]ia rce(s) Supporting Document(s) istat B-HCG < 5.0 Istat B-HCG [place] ([facility]) ID Date Data Source [id number] 07/16/2020 01:49:00 PM EDT [facility]) Name Value Range Interpretation Code Description Data Libia rce(s) Supporting Document(s) chlamydia DNA amplification negative negative Chlamydi a DNA Amplification [place] ([facility]) GC DNA amplification negative negative GC DNA Amplific ation [place] ([facility]) trichomonas vaginalis (amp) not detected negative Tricho monas Vaginalis (Amp) [facility]) ID Date Data Source [id number] 07/16/2020 01:49:00 PM EDT [facility]) Name Value Range Interpretation Code Description Data [place] rce(s) Supporting Document(s) glucose, fasting 91 mg/dL 70-100 Glucose, Fasting AT [facility] ([facility]) blood urea nitrogen 15 mg/dL 7-18 Blood Urea Nitro gen [place] ([facility]) creatinine for GFR 0.79 mg/dL 0.55-1.30 Creatinine for GF R [place] ([facility]) potassium serum 4.0 mEq/L 3.5-5.1 Potassium Serum [facility] ([facility]) sodium level 140 mEq/L 136-145 Sodium Level [place] (No [facility]) chloride level 106 mEq/L 98-107 Chloride Level [place] ([facility]) anion gap 8 mEq/L 8-16 Anion Gap [place] ([facility]) carbon dioxide level 26 mEq/L 21-32 Carbon Dioxide Level [place] ([facility]) calcium level 10.0 mg/dL 8.5-10.1 Calcium Level [place] ( [facility]) ID Date Data Source [id number] 07/16/2020 01:49:00 PM EDT [place] ([facility]) Name Value Range Interpretation Code Description Data Libia rce(s) Supporting Document(s) lipase 82 U/L 73-393 Lipase [place] ([facility]) ID Date Data Source [id number] 07/16/2020 01:49:00 PM EDT [facility]) Name Value Range Interpretation Code Description Data Libia rce(s) Supporting Document(s) AST/SGOT 7 U/L 7-37 AST/SGOT [place] ([facility]) ALT/SGPT 15 U/L 12-78 ALT/SGPT [place] ([facility]) alkaline phosphatase 66 U/L 45-117 Alkaline Phosph atase [place] ([facility]) bilirubin,total 0.7 mg/dL 0.2-1.0 Bil[facility] bilirubin,direct 0.1 mg/dL 0.0-0.2 Bilirubin,direct AT [facility] ([facility]) total protein 7.6 gm/dL 6.4-8.2 Total Protein [place] ( [facility]) albumin 4.4 gm/dL 3.2-5.2 Albumin [place] ([facility]) albumin/globulin ratio 1.2-2.2 Albumin/globu dyana Ratio [place] ([facility]) ID Date Data Source [id number] 07/16/2020 01:49:00 PM EDT [place] ([facility]) Name Value Range Interpretation Code Description Data Libia rce(s) Supporting Document(s) white blood count 7.3 10 4.0-10.0 White Blood Count [place] ([facility]) red blood count 5.13 10 4.00-5.40 Red Blood Count [facility] ([facility]) hemoglobin 15.1 g/dL 12.0-15.5 Hemoglobin [place] ([facility]) hematocrit 45.7 % 36.0-47.0 Hematocrit [place] ([facility]) mean corpuscular volume 89.1 fL 80.0-96.0 Mean Corpusc ular Volume [place] ([facility]) mean corpuscular hemoglobin 29.4 pg 27.0-33.0 Mean Cor puscular Hemoglobin [place] ([facility]) mean corpuscular HGB conc 33.0 g/dL 32.0-36.5 Mean Corpu scular HGB Conc [place] ([facility]) red cell distribution width 13.9 % 11.5-14.5 Red Cell Distribution Width [place] ([facility]) platelet count, automated 301 10 150-450 Platelet C ount, Automated [place] ([facility]) neutrophils % 65.2 % 36.0-66.0 Neutrophils % [place] ( [facility]) lymph % 23.7 % 24.0-44.0 Below low normal Lymph % [place] ( [facility]) mono % 6.7 % 2.0-8.0 [place] % [place] ([facility]) eos % 3.4 % 0.0-3.0 Above high normal Eos % [place] ([facility]) baso % 0.7 % 0.0-1.0 Baso % [place] ([facility]) immature granulocyte % 0.3 % 0-3.0 Immature Gran ulocyte % [place] ([facility]) nucleated red blood cell % 0.0 % 0-0 Nucleated Red Blood Cell % [place] ([facility]) neutrophils # 4.8 10 1.5-8.5 Neutrophils # [place] ( [facility]) lymph # 1.7 10 1.5-5.0 Lymph # [place] ([facility]) mono # 0.5 10 0.0-0.8 [place] # [place] ([facility]) eos # 0.3 10 0.0-0.5 Eos # [place] ([facility]) baso # 0.1 10 0.0-0.2 Baso # [place] ([facility]) ID Date Data Source [id number] 07/16/2020 01:49:00 PM EDT [place] ([facility]) Name Value Range Interpretation Code Description Data Libia rce(s) Supporting Document(s) chlamydia DNA amplification negative negative Chlamydi a DNA Amplification [place] ([facility]) GC DNA amplification negative negative GC DNA Amplific ation [place] ([facility]) trichomonas vaginalis (amp) not detected negative Tricho monas Vaginalis (Amp) [place] ([facility]) ID Date Data Source [id number] 07/16/2020 01:49:00 PM EDT [place] ([facility]) Name Value Range Interpretation Code Description Data Libia rce(s) Supporting Document(s) glucose, fasting 91 mg/dL 70-100 Glucose, Fasting AT [facility] ([facility]) blood urea nitrogen 15 mg/dL 7-18 Blood Urea Nitro gen [place] ([facility]) creatinine for GFR 0.79 mg/dL 0.55-1.30 Creatinine for GF R [place] ([facility]) potassium serum 4.0 mEq/L 3.5-5.1 Potassium Serum [place] [place] ([facility]) sodium level 140 mEq/L 136-145 Sodium Level [place] ([facility]) anion gap 8 mEq/L 8-16 Anion Gap [place] ([facility]) carbon dioxide level 26 mEq/L 21-32 Carbon Dioxide Level [place] ([facility]) chloride level 106 mEq/L 98-107 Chloride Level [place] ([facility]) calcium level 10.0 mg/dL 8.5-10.1 Calcium Level [place] ( [facility]) ID Date Data Source [id number] 07/16/2020 01:49:00 PM EDT [place] ([facility]) Name Value Range Interpretation Code Description Data Libia rce(s) Supporting Document(s) lipase 82 U/L 73-393 Lipase [place] ([facility]) ID Date Data Source [id number] 07/16/2020 01:49:00 PM EDT [place] ([facility]) Name Value Range Interpretation Code Description Data Libia rce(s) Supporting Document(s) alkaline phosphatase 66 U/L 45-117 Alkaline Phosph atase [place] ([facility]) AST/SGOT 7 U/L 7-37 AST/SGOT [place] ([facility]) ALT/SGPT 15 U/L 12-78 ALT/SGPT [place] ([facility]) total protein 7.6 gm/dL 6.4-8.2 Total Protein [place] ( [facility]) bilirubin,total 0.7 mg/dL 0.2-1.0 Bilirubin,total [place] [place] ([facility]) bilirubin,direct 0.1 mg/dL 0.0-0.2 Bilirubin,direct AT [facility] ([facility]) albumin 4.4 gm/dL 3.2-5.2 Albumin [place] ([facility]) albumin/globulin ratio 1.2-2.2 Albumin/globu dyana Ratio [place] ([facility]) ID Date Data Source [id number] 07/16/2020 01:49:00 PM EDT [place] ([facility]) Name Value Range Interpretation Code Description Data Libia rce(s) Supporting Document(s) hemoglobin 15.1 g/dL 12.0-15.5 Hemoglobin [place] ([facility]) red blood count 5.13 10 4.00-5.40 Red Blood Count [facility] ([facility]) white blood count 7.3 10 4.0-10.0 White Blood Count [place] ([facility]) mean corpuscular hemoglobin 29.4 pg 27.0-33.0 Mean Cor puscular Hemoglobin [place] ([facility]) hematocrit 45.7 % 36.0-47.0 Hematocrit [place] ([facility]) mean corpuscular volume 89.1 fL 80.0-96.0 Mean Corpusc ular Volume [place] ([facility]) mean corpuscular HGB conc 33.0 g/dL 32.0-36.5 Mean Corpu scular HGB Conc [place] ([facility]) red cell distribution width 13.9 % 11.5-14.5 Red Cell Distribution Width [place] ([facility]) neutrophils % 65.2 % 36.0-66.0 Neutrophils % [place] ( [facility]) lymph % 23.7 % 24.0-44.0 Below low normal Lymph % [place] ( [facility]) platelet count, automated 301 10 150-450 Platelet C ount, Automated [place] ([facility]) baso % 0.7 % 0.0-1.0 Baso % [place] ([facility]) eos % 3.4 % 0.0-3.0 Above high normal Eos % [place] ([facility]) mono % 6.7 % 2.0-8.0 [place] % [place] ([facility]) nucleated red blood cell % 0.0 % 0-0 Nucleated Red Blood Cell % [place] ([facility]) neutrophils # 4.8 10 1.5-8.5 Neutrophils # [place] ( [facility]) immature granulocyte % 0.3 % 0-3.0 Immature Gran ulocyte % [place] ([facility]) eos # 0.3 10 0.0-0.5 Eos # [place] ([facility]) mono # 0.5 10 0.0-0.8 [place] # [place] ([facility]) lymph # 1.7 10 1.5-5.0 Lymph # [place] ([facility]) baso # 0.1 10 0.0-0.2 Baso # [place] ([facility]) ID Date Data Source [id number] 07/16/2020 01:49:00 PM EDT [place] ([facility]) Name Value Range Interpretation Code Description Data Libia rce(s) Supporting Document(s) chlamydia DNA amplification negative negative Chlamydi a DNA Amplification [place] ([facility]) trichomonas vaginalis (amp) not detected negative Tricho monas Vaginalis (Amp) [place] ([facility]) GC DNA amplification negative negative GC DNA Amplific ation [place] ([facility]) ID Date Data Source [id number] 07/16/2020 01:49:00 PM EDT [place] ([facility]) Name Value Range Interpretation Code Description Data Libia rce(s) Supporting Document(s) glucose, fasting 91 mg/dL 70-100 Glucose, Fasting AT [facility]) blood urea nitrogen 15 mg/dL 7-18 Blood Urea Nitro gen [place] ([facility]) sodium level 140 mEq/L 136-145 Sodium Level [place] (No [facility]) creatinine for GFR 0.79 mg/dL 0.55-1.30 Creatinine for GF R [place] ([facility]) potassium serum 4.0 mEq/L 3.5-5.1 Potassium Serum [facility] ([facility]) chloride level 106 mEq/L 98-107 Chloride Level [place] ([facility]) carbon dioxide level 26 mEq/L 21-32 Carbon Dioxide Level [place] ([facility]) calcium level 10.0 mg/dL 8.5-10.1 Calcium Level [place] ( [facility]) anion gap 8 mEq/L 8-16 Anion Gap [place] ([facility]) ID Date Data Source [id number] 07/16/2020 01:49:00 PM EDT [place] ([facility]) Name Value Range Interpretation Code Description Data Libia rce(s) Supporting Document(s) lipase 82 U/L 73-393 Lipase [place] ([facility]) ID Date Data Source [id number] 07/16/2020 01:49:00 PM EDT [place] ([facility]) Name Value Range Interpretation Code Description Data Libia rce(s) Supporting Document(s) alkaline phosphatase 66 U/L 45-117 Alkaline Phosph atase [place] ([facility]) ALT/SGPT 15 U/L 12-78 ALT/SGPT [place] ([facility]) AST/SGOT 7 U/L 7-37 AST/SGOT [place] ([facility]) bilirubin,direct 0.1 mg/dL 0.0-0.2 Bilirubin,direct AT [facility] ([facility]) bilirubin,total 0.7 mg/dL 0.2-1.0 Bilirubin,total [place] ([facility]) total protein 7.6 gm/dL 6.4-8.2 Total Protein [place] ( [facility]) albumin/globulin ratio 1.2-2.2 Albumin/globu dyana Ratio [place] ([facility]) albumin 4.4 gm/dL 3.2-5.2 Albumin [place] ([facility]) ID Date Data Source [id number] 07/16/2020 01:49:00 PM EDT [place] ([facility]) Name Value Range Interpretation Code Description Data Libia rce(s) Supporting Document(s) white blood count 7.3 10 4.0-10.0 White Blood Count [place] ([facility]) red blood count 5.13 10 4.00-5.40 Red Blood Count [place] ([facility]) hemoglobin 15.1 g/dL 12.0-15.5 Hemoglobin [place] ([facility]) hematocrit 45.7 % 36.0-47.0 Hematocrit [place] ([facility]) mean corpuscular volume 89.1 fL 80.0-96.0 Mean Corpusc ular Volume [place] ([facility]) mean corpuscular HGB conc 33.0 g/dL 32.0-36.5 Mean Corpu scular HGB Conc [place] ([facility]) mean corpuscular hemoglobin 29.4 pg 27.0-33.0 Mean Cor puscular Hemoglobin [place] ([facility]) platelet count, automated 301 10 150-450 Platelet C ount, Automated [place] ([facility]) red cell distribution width 13.9 % 11.5-14.5 Red Cell Distribution Width [place] ([facility]) mono % 6.7 % 2.0-8.0 [place] % [place] ([facility]) lymph % 23.7 % 24.0-44.0 Below low normal Lymph % [place] ( [facility]) neutrophils % 65.2 % 36.0-66.0 Neutrophils % [place] ( [facility]) eos % 3.4 % 0.0-3.0 Above high normal Eos % [place] ([facility]) baso % 0.7 % 0.0-1.0 Baso % [place] ([facility]) immature granulocyte % 0.3 % 0-3.0 Immature Gran ulocyte % [place] ([facility]) nucleated red blood cell % 0.0 % 0-0 Nucleated Red Blood Cell % [place] ([facility]) neutrophils # 4.8 10 1.5-8.5 Neutrophils # [place] ( [facility]) mono # 0.5 10 0.0-0.8 [place] # [place] ([facility]) eos # 0.3 10 0.0-0.5 Eos # [place] ([facility]) lymph # 1.7 10 1.5-5.0 Lymph # [place] ([facility]) baso # 0.1 10 0.0-0.2 Baso # [place] ([facility]) ID Date Data Source [id number] 07/16/2020 01:49:00 PM EDT [place] ([facility]) Name Value Range Interpretation Code Description Data Libia rce(s) Supporting Document(s) GC DNA amplification negative negative GC DNA Amplific ation [place] ([facility]) chlamydia DNA amplification negative negative Chlamydi a DNA Amplification [place] ([facility]) trichomonas vaginalis (amp) not detected negative Tricho monas Vaginalis (Amp) [place] ([facility]) ID Date Data Source [id number] 07/16/2020 01:49:00 PM EDT [place] ([facility]) Name Value Range Interpretation Code Description Data Libia rce(s) Supporting Document(s) creatinine for GFR 0.79 mg/dL 0.55-1.30 Creatinine for GF R [place] ([facility]) sodium level 140 mEq/L 136-145 Sodium Level [place] (No [facility]) blood urea nitrogen 15 mg/dL 7-18 Blood Urea Nitro gen [place] ([facility]) glucose, fasting 91 mg/dL 70-100 Glucose, Fasting AT [facility]) carbon dioxide level 26 mEq/L 21-32 Carbon Dioxide Level [place] ([facility]) chloride level 106 mEq/L 98-107 Chloride Level [place] ([facility]) potassium serum 4.0 mEq/L 3.5-5.1 Potassium Serum [place] ([facility]) anion gap 8 mEq/L 8-16 Anion Gap [place] ([facility]) calcium level 10.0 mg/dL 8.5-10.1 Calcium Level [place] ( [facility]) ID Date Data Source [id number] 07/16/2020 01:49:00 PM EDT [facility]) Name Value Range Interpretation Code Description Data Libia rce(s) Supporting Document(s) lipase 82 U/L 73-393 Lipase [place] ([facility]) ID Date Data Source [id number] 07/16/2020 01:49:00 PM EDT [place] ([facility]) Name Value Range Interpretation Code Description Data Libia rce(s) Supporting Document(s) ALT/SGPT 15 U/L 12-78 ALT/SGPT [place] ([facility]) alkaline phosphatase 66 U/L 45-117 Alkaline Phosph atase [place] ([facility]) AST/SGOT 7 U/L 7-37 AST/SGOT [place] ([facility]) bilirubin,direct 0.1 mg/dL 0.0-0.2 Bilirubin,direct AT [facility] ([facility]) bilirubin,total 0.7 mg/dL 0.2-1.0 Bilirubin,total [place] [place] ([facility]) albumin 4.4 gm/dL 3.2-5.2 Albumin [place] ([facility]) total protein 7.6 gm/dL 6.4-8.2 Total Protein [place] ( [facility]) albumin/globulin ratio 1.2-2.2 Albumin/globu dyana Ratio [place] ([facility]) ID Date Data Source [id number] 07/16/2020 01:49:00 PM EDT [place] ([facility]) Name Value Range Interpretation Code Description Data Libia rce(s) Supporting Document(s) white blood count 7.3 10 4.0-10.0 White Blood Count [place] ([facility]) red blood count 5.13 10 4.00-5.40 Red Blood Count [place] [place] ([facility]) hematocrit 45.7 % 36.0-47.0 Hematocrit [place] ([facility]) mean corpuscular volume 89.1 fL 80.0-96.0 Mean Corpusc ular Volume [place] ([facility]) hemoglobin 15.1 g/dL 12.0-15.5 Hemoglobin [place] ([facility]) mean corpuscular HGB conc 33.0 g/dL 32.0-36.5 Mean Corpu scular HGB Conc [place] ([facility]) mean corpuscular hemoglobin 29.4 pg 27.0-33.0 Mean Cor puscular Hemoglobin [place] ([facility]) red cell distribution width 13.9 % 11.5-14.5 Red Cell Distribution Width [place] ([facility]) platelet count, automated 301 10 150-450 Platelet C ount, Automated [place] ([facility]) neutrophils % 65.2 % 36.0-66.0 Neutrophils % [place] ( [facility]) lymph % 23.7 % 24.0-44.0 Below low normal Lymph % [place] ( [facility]) mono % 6.7 % 2.0-8.0 [place] % [place] ([facility]) baso % 0.7 % 0.0-1.0 Baso % [place] ([facility]) eos % 3.4 % 0.0-3.0 Above high normal Eos % [place] ([facility]) immature granulocyte % 0.3 % 0-3.0 Immature Gran ulocyte % [place] ([facility]) nucleated red blood cell % 0.0 % 0-0 Nucleated Red Blood Cell % [place] ([facility]) neutrophils # 4.8 10 1.5-8.5 Neutrophils # [place] ( [facility]) lymph # 1.7 10 1.5-5.0 Lymph # [place] ([facility]) baso # 0.1 10 0.0-0.2 Baso # [place] ([facility]) mono # 0.5 10 0.0-0.8 [place] # [place] ([facility]) eos # 0.3 10 0.0-0.5 Eos # [place] ([facility]) ID Date Data Source [id number] 07/16/2020 01:49:00 PM EDT [place] ([facility]) Name Value Range Interpretation Code Description Data Libia rce(s) Supporting Document(s) chlamydia DNA amplification negative negative Chlamydi a DNA Amplification [place] ([facility]) trichomonas vaginalis (amp) not detected negative Tricho monas Vaginalis (Amp) [place] ([facility]) GC DNA amplification negative negative GC DNA Amplific ation [place] ([facility]) ID Date Data Source [id number] 07/16/2020 01:49:00 PM EDT [facility]) Name Value Range Interpretation Code Description Data Libia rce(s) Supporting Document(s) glucose, fasting 91 mg/dL 70-100 Glucose, Fasting AT [facility]) sodium level 140 mEq/L 136-145 Sodium Level [place] (No [facility]) potassium serum 4.0 mEq/L 3.5-5.1 Potassium Serum [place] ([facility]) creatinine for GFR 0.79 mg/dL 0.55-1.30 Creatinine for GF R [place] ([facility]) blood urea nitrogen 15 mg/dL 7-18 Blood Urea Nitro gen [place] ([facility]) chloride level 106 mEq/L 98-107 Chloride Level [place] ([facility]) carbon dioxide level 26 mEq/L 21-32 Carbon Dioxide Level [place] ([facility]) anion gap 8 mEq/L 8-16 Anion Gap [place] ([facility]) calcium level 10.0 mg/dL 8.5-10.1 Calcium Level [facility]) ID Date Data Source [id number] 07/16/2020 01:49:00 PM EDT [facility]) Name Value Range Interpretation Code Description Data Libia rce(s) Supporting Document(s) lipase 82 U/L 73-393 Lipase [facility]) ID Date Data Source [id number] 07/16/2020 01:49:00 PM EDT [facility]) Name Value Range Interpretation Code Description Data Libia rce(s) Supporting Document(s) AST/SGOT 7 U/L 7-37 AST/SGOT [place] ([facility]) ALT/SGPT 15 U/L 12-78 ALT/SGPT [place] ([facility]) bilirubin,total 0.7 mg/dL 0.2-1.0 Bilirubin,total [place] ([facility]) alkaline phosphatase 66 U/L 45-117 Alkaline Phosph atase [place] ([facility]) albumin/globulin ratio 1.2-2.2 Albumin/globu dyana Ratio [place] ([facility]) albumin 4.4 gm/dL 3.2-5.2 Albumin [place] ([facility]) total protein 7.6 gm/dL 6.4-8.2 Total Protein [place] ( [facility]) bilirubin,direct 0.1 mg/dL 0.0-0.2 Bilirubin,direct AT [facility]) ID Date Data Source [id number] 07/16/2020 01:49:00 PM EDT [place] ([facility]) Name Value Range Interpretation Code Description Data Libia rce(s) Supporting Document(s) white blood count 7.3 10 4.0-10.0 White Blood Count [place] ([facility]) hemoglobin 15.1 g/dL 12.0-15.5 Hemoglobin [place] ([facility]) red blood count 5.13 10 4.00-5.40 Red Blood Count [facility] [place] ([facility]) hematocrit 45.7 % 36.0-47.0 Hematocrit [place] ([facility]) mean corpuscular hemoglobin 29.4 pg 27.0-33.0 Mean Cor puscular Hemoglobin [place] ([facility]) mean corpuscular volume 89.1 fL 80.0-96.0 Mean Corpusc ular Volume [place] ([facility]) mean corpuscular HGB conc 33.0 g/dL 32.0-36.5 Mean Corpu scular HGB Conc [place] ([facility]) platelet count, automated 301 10 150-450 Platelet C ount, Automated [place] ([facility]) red cell distribution width 13.9 % 11.5-14.5 Red Cell Distribution Width [place] ([facility]) neutrophils % 65.2 % 36.0-66.0 Neutrophils % [place] ( [facility]) eos % 3.4 % 0.0-3.0 Above high normal Eos % [place] ([facility]) mono % 6.7 % 2.0-8.0 [place] % [place] ([facility]) lymph % 23.7 % 24.0-44.0 Below low normal Lymph % [place] ( [facility]) baso % 0.7 % 0.0-1.0 Baso % [place] ([facility]) immature granulocyte % 0.3 % 0-3.0 Immature Gran ulocyte % [place] ([facility]) nucleated red blood cell % 0.0 % 0-0 Nucleated Red Blood Cell % [place] ([facility]) mono # 0.5 10 0.0-0.8 [place] # [place] ([facility]) eos # 0.3 10 0.0-0.5 Eos # [place] ([facility]) lymph # 1.7 10 1.5-5.0 Lymph # [place] ([facility]) neutrophils # 4.8 10 1.5-8.5 Neutrophils # [place] ( [facility]) baso # 0.1 10 0.0-0.2 Baso # [place] ([facility]) ID Date Data Source [id number] 07/16/2020 01:49:00 PM EDT [place] ([facility]) Name Value Range Interpretation Code Description Data Libia rce(s) Supporting Document(s) chlamydia DNA amplification negative negative Chlamydi a DNA Amplification [place] ([facility]) trichomonas vaginalis (amp) not detected negative Tricho monas Vaginalis (Amp) [place] ([facility]) GC DNA amplification negative negative GC DNA Amplific ation [place] ([facility]) ID Date Data Source [id number] 07/16/2020 01:49:00 PM EDT [place] ([facility]) Name Value Range Interpretation Code Description Data Libia rce(s) Supporting Document(s) glucose, fasting 91 mg/dL 70-100 Glucose, Fasting AT [facility] ([facility]) creatinine for GFR 0.79 mg/dL 0.55-1.30 Creatinine for GF R [place] ([facility]) sodium level 140 mEq/L 136-145 Sodium Level [place] (No [facility]) blood urea nitrogen 15 mg/dL 7-18 Blood Urea Nitro gen [place] ([facility]) carbon dioxide level 26 mEq/L 21-32 Carbon Dioxide Level [place] ([facility]) potassium serum 4.0 mEq/L 3.5-5.1 Potassium Serum [facility] ([facility]) chloride level 106 mEq/L 98-107 Chloride Level [place] ([facility]) calcium level 10.0 mg/dL 8.5-10.1 Calcium Level [place] ( [facility]) anion gap 8 mEq/L 8-16 Anion Gap [place] ([facility]) ID Date Data Source [id number] 07/16/2020 01:49:00 PM EDT [place] ([facility]) Name Value Range Interpretation Code Description Data Libia rce(s) Supporting Document(s) lipase 82 U/L 73-393 Lipase [place] ([facility]) ID Date Data Source [id number] 07/16/2020 01:49:00 PM EDT [place] ([facility]) Name Value Range Interpretation Code Description Data Libia rce(s) Supporting Document(s) AST/SGOT 7 U/L 7-37 AST/SGOT [place] ([facility]) ALT/SGPT 15 U/L 12-78 ALT/SGPT [place] ([facility]) bilirubin,direct 0.1 mg/dL 0.0-0.2 Bilirubin,direct AT [facility] ([facility]) bilirubin,total 0.7 mg/dL 0.2-1.0 Bilirubin,total [facility] ([facility]) alkaline phosphatase 66 U/L 45-117 Alkaline Phosph atase [place] ([facility]) total protein 7.6 gm/dL 6.4-8.2 Total Protein [place] ( [facility]) albumin 4.4 gm/dL 3.2-5.2 Albumin [place] ([facility]) albumin/globulin ratio 1.2-2.2 Albumin/globu dyana Ratio [place] ([facility]) ID Date Data Source [id number] 07/16/2020 01:49:00 PM EDT [place] ([facility]) Name Value Range Interpretation Code Description Data Libia rce(s) Supporting Document(s) white blood count 7.3 10 4.0-10.0 White Blood Count [place] ([facility]) hemoglobin 15.1 g/dL 12.0-15.5 Hemoglobin [place] ([facility]) red blood count 5.13 10 4.00-5.40 Red Blood Count [facility] ([facility]) mean corpuscular volume 89.1 fL 80.0-96.0 Mean Corpusc ular Volume [place] ([facility]) hematocrit 45.7 % 36.0-47.0 Hematocrit [place] ([facility]) red cell distribution width 13.9 % 11.5-14.5 Red Cell Distribution Width [place] ([facility]) mean corpuscular hemoglobin 29.4 pg 27.0-33.0 Mean Cor puscular Hemoglobin [place] ([facility]) mean corpuscular HGB conc 33.0 g/dL 32.0-36.5 Mean Corpu scular HGB Conc [place] ([facility]) platelet count, automated 301 10 150-450 Platelet C ount, Automated [place] ([facility]) neutrophils % 65.2 % 36.0-66.0 Neutrophils % [place] ( [facility]) lymph % 23.7 % 24.0-44.0 Below low normal Lymph % [place] ( [facility]) mono % 6.7 % 2.0-8.0 [place] % [place] ([facility]) baso % 0.7 % 0.0-1.0 Baso % [place] ([facility]) eos % 3.4 % 0.0-3.0 Above high normal Eos % [place] ([facility]) nucleated red blood cell % 0.0 % 0-0 Nucleated Red Blood Cell % [place] ([facility]) immature granulocyte % 0.3 % 0-3.0 Immature Gran ulocyte % [place] ([facility]) neutrophils # 4.8 10 1.5-8.5 Neutrophils # [place] ( [facility]) mono # 0.5 10 0.0-0.8 [place] # [place] ([facility]) lymph # 1.7 10 1.5-5.0 Lymph # [place] ([facility]) eos # 0.3 10 0.0-0.5 Eos # [place] ([facility]) baso # 0.1 10 0.0-0.2 Baso # [place] ([facility]) ID Date Data Source [id number] 07/16/2020 01:49:00 PM EDT [place] ([facility]) Name Value Range Interpretation Code Description Data Libia rce(s) Supporting Document(s) chlamydia DNA amplification negative negative Chlamydi a DNA Amplification [place] ([facility]) GC DNA amplification negative negative GC DNA Amplific ation [place] ([facility]) trichomonas vaginalis (amp) not detected negative Tricho monas Vaginalis (Amp) [place] ([facility]) ID Date Data Source [id number] 07/16/2020 01:49:00 PM EDT [place] ([facility]) Name Value Range Interpretation Code Description Data Libia rce(s) Supporting Document(s) glucose, fasting 91 mg/dL 70-100 Glucose, Fasting AT [facility] ([facility]) blood urea nitrogen 15 mg/dL 7-18 Blood Urea Nitro gen [place] ([facility]) creatinine for GFR 0.79 mg/dL 0.55-1.30 Creatinine for GF R [place] ([facility]) chloride level 106 mEq/L 98-107 Chloride Level [place] ([facility]) potassium serum 4.0 mEq/L 3.5-5.1 Potassium Serum [place] ([facility]) sodium level 140 mEq/L 136-145 Sodium Level [place] (No [facility]) anion gap 8 mEq/L 8-16 Anion Gap [place] ([facility]) carbon dioxide level 26 mEq/L 21-32 Carbon Dioxide Level [place] ([facility]) calcium level 10.0 mg/dL 8.5-10.1 Calcium Level [place] ( [facility]) ID Date Data Source [id number] 07/16/2020 01:49:00 PM EDT [place] ([facility]) Name Value Range Interpretation Code Description Data Libia rce(s) Supporting Document(s) lipase 82 U/L 73-393 Lipase [place] ([facility]) ID Date Data Source [id number] 07/16/2020 01:49:00 PM EDT [place] ([facility]) Name Value Range Interpretation Code Description Data Libia rce(s) Supporting Document(s) AST/SGOT 7 U/L 7-37 AST/SGOT [place] ([facility]) ALT/SGPT 15 U/L 12-78 ALT/SGPT [place] ([facility]) alkaline phosphatase 66 U/L 45-117 Alkaline Phosph atase [place] ([facility]) bilirubin,total 0.7 mg/dL 0.2-1.0 Bilirubin,total [place] ([facility]) bilirubin,direct 0.1 mg/dL 0.0-0.2 Bilirubin,direct AT [facility] ([facility]) total protein 7.6 gm/dL 6.4-8.2 Total Protein [place] ( [facility]) albumin/globulin ratio 1.2-2.2 Albumin/globu dyana Ratio [place] ([facility]) albumin 4.4 gm/dL 3.2-5.2 Albumin [place] ([facility]) ID Date Data Source [id number] 07/16/2020 01:49:00 PM EDT [place] ([facility]) Name Value Range Interpretation Code Description Data Libia rce(s) Supporting Document(s) white blood count 7.3 10 4.0-10.0 White Blood Count [place] ([facility]) red blood count 5.13 10 4.00-5.40 Red Blood Count [place] ([facility]) hemoglobin 15.1 g/dL 12.0-15.5 Hemoglobin [place] ([facility]) hematocrit 45.7 % 36.0-47.0 Hematocrit [place] ([facility]) mean corpuscular volume 89.1 fL 80.0-96.0 Mean Corpusc ular Volume [place] ([facility]) mean corpuscular hemoglobin 29.4 pg 27.0-33.0 Mean Cor puscular Hemoglobin [place] ([facility]) mean corpuscular HGB conc 33.0 g/dL 32.0-36.5 Mean Corpu scular HGB Conc [place] ([facility]) platelet count, automated 301 10 150-450 Platelet C ount, Automated [place] ([facility]) red cell distribution width 13.9 % 11.5-14.5 Red Cell Distribution Width [place] ([facility]) neutrophils % 65.2 % 36.0-66.0 Neutrophils % [place] ( [facility]) lymph % 23.7 % 24.0-44.0 Below low normal Lymph % [place] ( [facility]) eos % 3.4 % 0.0-3.0 Above high normal Eos % [place] ([facility]) mono % 6.7 % 2.0-8.0 [place] % [place] ([facility]) baso % 0.7 % 0.0-1.0 Baso % [place] ([facility]) nucleated red blood cell % 0.0 % 0-0 Nucleated Red Blood Cell % [place] ([facility]) immature granulocyte % 0.3 % 0-3.0 Immature Gran ulocyte % [place] ([facility]) lymph # 1.7 10 1.5-5.0 Lymph # [place] ([facility]) mono # 0.5 10 0.0-0.8 [place] # [place] ([facility]) neutrophils # 4.8 10 1.5-8.5 Neutrophils # [place] ( [facility]) baso # 0.1 10 0.0-0.2 Baso # [place] ([facility]) eos # 0.3 10 0.0-0.5 [place] # [place] ([facility]) ID Date Data Source [id number] 07/16/2020 01:49:00 PM EDT [facility]) Name Value Range Interpretation Code Description Data Libia rce(s) Supporting Document(s) chlamydia DNA amplification negative negative Chlamydi a DNA Amplification [place] ([facility]) GC DNA amplification negative negative GC DNA Amplific ation [place] ([facility]) trichomonas vaginalis (amp) not detected negative Tricho monas Vaginalis (Amp) [place] ([facility]) ID Date Data Source [id number] 07/16/2020 01:49:00 PM EDT [place] ([facility]) Name Value Range Interpretation Code Description Data Libia rce(s) Supporting Document(s) blood urea nitrogen 15 mg/dL 7-18 Blood Urea Nitro gen [place] ([facility]) sodium level 140 mEq/L 136-145 Sodium Level [place] (No [facility]) glucose, fasting 91 mg/dL 70-100 Glucose, Fasting AT [facility] ([facility]) creatinine for GFR 0.79 mg/dL 0.55-1.30 Creatinine for GF R [place] ([facility]) carbon dioxide level 26 mEq/L 21-32 Carbon Dioxide Level [place] ([facility]) chloride level 106 mEq/L 98-107 Chloride Level [place] ([facility]) potassium serum 4.0 mEq/L 3.5-5.1 Potassium Serum [place] ([facility]) calcium level 10.0 mg/dL 8.5-10.1 Calcium Level [place] ( [facility]) anion gap 8 mEq/L 8-16 Anion Gap [place] ([facility]) ID Date Data Source [id number] 07/16/2020 01:49:00 PM EDT [place] ([facility]) Name Value Range Interpretation Code Description Data Libia rce(s) Supporting Document(s) lipase 82 U/L 73-393 Lipase [place] ([facility]) ID Date Data Source [id number] 07/16/2020 01:49:00 PM EDT [place] ([facility]) Name Value Range Interpretation Code Description Data Libia rce(s) Supporting Document(s) AST/SGOT 7 U/L 7-37 AST/SGOT [place] ([facility]) alkaline phosphatase 66 U/L 45-117 Alkaline Phosph atase [place] ([facility]) bilirubin,total 0.7 mg/dL 0.2-1.0 Bilirubin,total [place] ([facility]) ALT/SGPT 15 U/L 12-78 ALT/SGPT [place] ([facility]) bilirubin,direct 0.1 mg/dL 0.0-0.2 Bilirubin,direct AT [facility] ([facility]) albumin 4.4 gm/dL 3.2-5.2 Albumin [place] ([facility]) total protein 7.6 gm/dL 6.4-8.2 Total Protein [place] ( [facility]) albumin/globulin ratio 1.2-2.2 Albumin/globu dyana Ratio [place] ([facility]) ID Date Data Source [id number] 07/16/2020 01:49:00 PM EDT [place] ([facility]) Name Value Range Interpretation Code Description Data Libia rce(s) Supporting Document(s) white blood count 7.3 10 4.0-10.0 White Blood Count [place] ([facility]) red blood count 5.13 10 4.00-5.40 Red Blood Count [place] ([facility]) hemoglobin 15.1 g/dL 12.0-15.5 Hemoglobin [place] ([facility]) hematocrit 45.7 % 36.0-47.0 Hematocrit [place] ([facility]) mean corpuscular volume 89.1 fL 80.0-96.0 Mean Corpusc ular Volume [place] ([facility]) mean corpuscular HGB conc 33.0 g/dL 32.0-36.5 Mean Corpu scular HGB Conc [place] ([facility]) mean corpuscular hemoglobin 29.4 pg 27.0-33.0 Mean Cor puscular Hemoglobin [place] ([facility]) platelet count, automated 301 10 150-450 Platelet C ount, Automated [place] ([facility]) red cell distribution width 13.9 % 11.5-14.5 Red Cell Distribution Width [place] ([facility]) lymph % 23.7 % 24.0-44.0 Below low normal Lymph % [place] ( [facility]) neutrophils % 65.2 % 36.0-66.0 Neutrophils % [place] ( [facility]) mono % 6.7 % 2.0-8.0 [place] % [place] ([facility]) baso % 0.7 % 0.0-1.0 Baso % [place] ([facility]) eos % 3.4 % 0.0-3.0 Above high normal Eos % [place] ([facility]) nucleated red blood cell % 0.0 % 0-0 Nucleated Red Blood Cell % [place] ([facility]) immature granulocyte % 0.3 % 0-3.0 Immature Gran ulocyte % [place] ([facility]) neutrophils # 4.8 10 1.5-8.5 Neutrophils # [place] ( [facility]) lymph # 1.7 10 1.5-5.0 Lymph # [place] ([facility]) mono # 0.5 10 0.0-0.8 [place] # [place] ([facility]) baso # 0.1 10 0.0-0.2 Baso # [place] ([facility]) eos # 0.3 10 0.0-0.5 [place] # [place] ([facility]) ID Date Data Source [id number] 07/16/2020 01:49:00 PM EDT [place] ([facility]) Name Value Range Interpretation Code Description Data Libia rce(s) Supporting Document(s) GC DNA amplification negative negative GC DNA Amplific ation [place] ([facility]) chlamydia DNA amplification negative negative Chlamydi a DNA Amplification [place] ([facility]) trichomonas vaginalis (amp) not detected negative Tricho monas Vaginalis (Amp) [place] ([facility]) ID Date Data Source [id number] 07/16/2020 01:49:00 PM EDT [place] ([facility]) Name Value Range Interpretation Code Description Data Libia rce(s) Supporting Document(s) glucose, fasting 91 mg/dL 70-100 Glucose, Fasting AT [facility]) blood urea nitrogen 15 mg/dL 7-18 Blood Urea Nitro gen [place] ([facility]) sodium level 140 mEq/L 136-145 Sodium Level [place] (No [facility]) creatinine for GFR 0.79 mg/dL 0.55-1.30 Creatinine for GF R [place] ([facility]) potassium serum 4.0 mEq/L 3.5-5.1 Potassium Serum [place] ([facility]) carbon dioxide level 26 mEq/L 21-32 Carbon Dioxide Level [place] ([facility]) chloride level 106 mEq/L 98-107 Chloride Level [place] ([facility]) calcium level 10.0 mg/dL 8.5-10.1 Calcium Level [place] ( [facility]) anion gap 8 mEq/L 8-16 Anion Gap [place] ([facility]) ID Date Data Source [id number] 07/16/2020 01:49:00 PM EDT [place] ([facility]) Name Value Range Interpretation Code Description Data Libia rce(s) Supporting Document(s) lipase 82 U/L 73-393 Lipase [place] ([facility]) ID Date Data Source [id number] 07/16/2020 01:49:00 PM EDT [place] ([facility]) Name Value Range Interpretation Code Description Data Libia rce(s) Supporting Document(s) ALT/SGPT 15 U/L 12-78 ALT/SGPT [place] ([facility]) AST/SGOT 7 U/L 7-37 AST/SGOT [place] ([facility]) alkaline phosphatase 66 U/L 45-117 Alkaline Phosph atase [place] ([facility]) bilirubin,direct 0.1 mg/dL 0.0-0.2 Bilirubin,direct AT [facility] ([facility]) bilirubin,total 0.7 mg/dL 0.2-1.0 Bilirubin,total [place] ([facility]) total protein 7.6 gm/dL 6.4-8.2 Total Protein [place] ( [facility]) albumin 4.4 gm/dL 3.2-5.2 Albumin [place] ([facility]) albumin/globulin ratio 1.2-2.2 Albumin/globu dyana Ratio [place] ([facility]) ID Date Data Source [id number] 07/16/2020 01:49:00 PM EDT [place] ([facility]) Name Value Range Interpretation Code Description Data Libia rce(s) Supporting Document(s) red blood count 5.13 10 4.00-5.40 Red Blood Count [place] ([facility]) white blood count 7.3 10 4.0-10.0 White Blood Count [place] ([facility]) hematocrit 45.7 % 36.0-47.0 Hematocrit [place] ([facility]) hemoglobin 15.1 g/dL 12.0-15.5 Hemoglobin [place] ([facility]) mean corpuscular hemoglobin 29.4 pg 27.0-33.0 Mean Cor puscular Hemoglobin [place] ([facility]) mean corpuscular HGB conc 33.0 g/dL 32.0-36.5 Mean Corpu scular HGB Conc [place] ([facility]) mean corpuscular volume 89.1 fL 80.0-96.0 Mean Corpusc ular Volume [place] ([facility]) red cell distribution width 13.9 % 11.5-14.5 Red Cell Distribution Width [place] ([facility]) platelet count, automated 301 10 150-450 Platelet C ount, Automated [place] ([facility]) neutrophils % 65.2 % 36.0-66.0 Neutrophils % [place] ( [facility]) lymph % 23.7 % 24.0-44.0 Below low normal Lymph % [place] ( [facility]) eos % 3.4 % 0.0-3.0 Above high normal Eos % [place] ([facility]) baso % 0.7 % 0.0-1.0 Baso % [place] ([facility]) mono % 6.7 % 2.0-8.0 [place] % [place] ([facility]) nucleated red blood cell % 0.0 % 0-0 Nucleated Red Blood Cell % [place] ([facility]) immature granulocyte % 0.3 % 0-3.0 Immature Gran ulocyte % [place] ([facility]) lymph # 1.7 10 1.5-5.0 Lymph # [place] ([facility]) neutrophils # 4.8 10 1.5-8.5 Neutrophils # [place] ( [facility]) mono # 0.5 10 0.0-0.8 [place] # [place] ([facility]) baso # 0.1 10 0.0-0.2 Baso # [place] ([facility]) eos # 0.3 10 0.0-0.5 [place] # [place] ([facility]) ID Date Data Source [id number] 07/08/2020 01:24:18 PM EDT [facility] ([facility]) Name Value Range Interpretation Code Description Data Libia rce(s) Supporting Document(s) NegativeLot: [id number]: 12/26/2021 High Sensitivity Urine Test [facility] ([facility]) ID Date Data Source [id number] 07/08/2020 12:00:00 AM EDT [facility] ([facility]) Name Value Range Interpretation Code Description Data Libia rce(s) Supporting Document(s) Negative Normal (applies to non-numeric resul ts) Urine CT/GC Combo - GC [facility] ([facility]) : No Performed by: CDEvie ([id number]) ID Date Data Source [id number] 07/08/2020 12:00:00 AM EDT [facility] Name Value Range Interpretation Code Description Data Libia rce(s) Supporting Document(s) Negative Normal (applies to non-numeric resul ts) Urine CT/GC Combo - CT [facility] ([facility]) ID Date Data Source [id number] 06/07/2020 12:00:00 AM EST [facility] Name Value Range Interpretation Code Description Data Libia rce(s) Supporting Document(s) SARS-CoV2 Rapid Antigen Negative [facility] This lab was ordered by [facility] and reported by [facility]. ID Date Data Source [id number] 05/30/2020 12:00:00 AM EST [facility] Name Value Range Interpretation Code Description Data Libia rce(s) Supporting Document(s) Carestart Rapid COVID Antigen Test Positive [facility] This lab was reported by [facility]. ID Date Data Source [id number] 04/09/2020 02:41:52 PM EST [facility] ([facility]) Name Value Range Interpretation Code Description Data Libia rce(s) Supporting Document(s) NegativeLot: [id number]: 06/07/2021 High Sensitivity Urine Test [facility] ([facility]) ID Date Data Source [id number] 04/09/2020 12:00:00 AM EST [facility] ([facility]) Name Value Range Interpretation Code Description Data Libia rce(s) Supporting Document(s) YAYA Non-reactive Normal (applies to non-numeric results) Syphilis [facility] ([facility]) Infection with T. pallidum (cause of syp hilis) unlikely (earlyprimary syphilis cannot be excluded). Requestadditional testing if syphilis is clinically suspected.YAYA: Chemiluminescence immunoassay: No Performed by: JAVID ([id number]) ID Date Data Source [id number] 04/09/2020 12:00:00 AM EST [facility] ([facility]) Name Value Range Interpretation Code Description Data Libia rce(s) Supporting Document(s) HIV-1/2 Non-reactive Normal (applies to n on-numeric results) HIV-1/HIV-2 Ag/Ab [facility] ([facility]) The HIV Antigen (Ag)/Antibody (Ab) Combo ChemiluminescentMicroparticle Immunoassay (CMIA) is used for the simultaneousdetection of both the HIV-1 p24 Antigen and Antibodyto HIV-1 and for the Antibody to HIV-2. Performed by: JAVID ([id number]) ID Date Data Source [id number] 03/09/2020 10:10:00 [place] [address] PROGRESS NOTENAME: COLIN DECKER ROOM#: [id number] OF : 2000 MR#: [id number] DATE: 03/08/20 OF SERVICE: 03/09/20UBJECTIVE: This patient presented with presyncope. She claims that she took a sleeping pill to relax sixhours before she came to the emergency room and then Flagyl also at 500 mg b.i.d. for a Chlamydia infectionof the vagina for which she got this medicine from [facility] days ago. The patient was given IV fluidsand she feels better. She had Zofran 4 mg IV in the emergency room and she feels better. ROS: There is nochest pain. There are no chills or fever. No cough or hemoptysis. No bowel disturbance. No urinary problem.No ankle edema.OBJECTIVE: On exam, moderately built. Blood pressure is 100/60. Head is normal. Neck is supple. Nocarotid bruit. Chest is symmetrical. Heart is regular sinus rhythm with rate of 60 beats per minute. No murmur.Lungs are clear to auscultation, no rhonchi or rales. Abdomen is soft. Extremities are normal.ASSESSMENT/PLAN:1. Patient has sinus bradycardia which would be a vasovagal type of syncope and bradycardia from vasovagal reaction from Flagyl.2. She cannot bring the sleeping pill she took earlier before she came to the ER. It is quite possible that this is a reaction from the sleeping pill. She thinks the boyfriend threw that in the garbage. Her urine was negative for drugs done in the emergency room. I will do a thyroid panel and Lyme titer. Also, we will rule out acute arrhythmia.DD: Steven Olivares MD, 03/09/20 08:38DT: NARCISO 03/09/20 22:03DS: Steven Olivares MD, PC 03/14/20 08:56 1 Name Value Range Interpretation Code Description Data Libia rce(s) Supporting Document(s) ID Date Data Source [id number] 03/10/2020 10:35:00 [place] [address] HISTORY AND PHYSICALNAME: [facility] ROOM#: [id number] OF : 2000 MR#: [id number] PHYS: Steven Olivares MD, PC DATE: 03/08/20CHIEF COMPLAINT: This 19-year-old white female was admitted with chest pain and near syncope.HISTORY OF PRESENT ILLNESS:This patient claims that she had been to [facility] ER 2 days ago and was given Flagyl 500 mg b.i.d.for a Chlamydia infection of the vagina. She went upstairs and felt very dizzy, lightheaded and had chestpressure. She thought she was going to faint. This happened twice 10 minutes apart and she was brought to theemergency room with a heart rate of 40 beats per minute. She also said that she took a sleeping pill over thecounter 6 hours prior to coming. She does not know the name of the sleeping pill.REVIEW OF SYSTEMS:The patient's chest pain was very brief, lasted a few seconds and was in the retrosternal area, howevershe had episodes of presyncope and her heart rate in the emergency room was 40 beats per minute.There was no prolonged chest pain. There was no syncope. No visual loss or diplopia. No headache.No chills or fever. No cough or hemoptysis. No bowel disturbance. No urinary problem. No ankleedema.PAST MEDICAL HISTORY:The patient as a child was hospitalized for psychiatric issues.PERSONAL HISTORY:She smokes a few cigarettes per day.FAMILY HISTORY:Father of heart disease. Mother disease with cancer.PHYSICAL EXAMINATION:GENERAL: Moderately-built.VITAL SIGNS: Blood pressure is 112/46. Heart rate was 50 beats per minute on admission.Respirations 18. O2 saturation was 98%. Temperature was 97.HEENT: Head is normal. Eyes are normal. Pupils and fundus are normal. Mouth normal. Tongue dry.NECK: Supple. No lymphadenopathy. Thyroid not enlarged. Neck veins are not distended. No carotidbruits.CHEST: Symmetrical.HEART: Regular sinus rhythm. No murmur or gallop.LUNGS: Clear with no rales or rhonchi.ABDOMEN: Soft and nontender. No visceromegaly.EXTREMITIES: Normal. Peripheral pulses are palpable.NEUROLOGICAL: Normal. No neurologic deficit. Reflexes were normal. Tone in the muscles was normal. [address] [place] [address] HISTORY AND PHYSICALNAME: COLIN SHELLI ROOM#: [id number] OF : 2000 MR#: [id number] PHYS: Steven Olivares MD, PC DATE: 03/08/20IMPRESSION: 1. Presyncope. 2. Possible [place]io arrhythmia. 3. Dehydration.PLAN:Patient to get IV fluids at 80 cc of normal saline per hour, which will help her dizziness and nausea. It is quitepossible the patient was nauseated as a vasovagal reaction from Flagyl 500 mg b.i.d., which could make hersick and her heart could go slow with the vasovagal syncope. We will cut the Flagyl to 250 mg t.i.d. She hasWBCs in the urine. Urine culture will be obtained and we will put her on Macrobid 50 mg b.i.d. We will giveher a low dose because she is nauseated. We will monitor her with telemetry monitoring for indio arrhythmiaas her heart rate is between 40-50 beats per minute. Patient was told to bring the medication she took gkkg-rip-tqjyjsl for sleep and she refuses.DD: Steven Olivares MD, PC 03/09/20 08:35DT: NARCISO 03/09/20 22:43DS: Steven Olivares MD, PC 03/14/20 08:56 2 Name Value Range Interpretation Code Description Data Libia rce(s) Supporting Document(s) ID Date Data Source [id number] 03/10/2020 10:50:00 [place] [address] DISCHARGE SUMMARYNAME: COLIN SANCHEZRY ROOM#: [id number] OF : 2000 MR#: [id number] PHYS: Steven Olivares MD, PC DATE: 03/08/20 DISCHARGED: 03/10/20REASON FOR ADMISSION: This 19-year-old white female was admitted with chest pain and nearsyncope.HISTORY OF PRESENT ILLNESS:This patient was at [facility] ER 2 days ago and was given Flagyl 500 mg b.i.d. for a Chlamydiavaginal infection. The patient claims that she had 2 episodes of dizziness and thought she was going to faint.She came to the ER and her heart rate was between 40-50 and so she was admitted for sick sinus syndromeand indio arrhythmia. She took a sleeping pill before she came in gdlj-vsd-qagjlyo. She does not know thename and she could not bring it in to show me. She told me that the boyfriend threw it in the garbage. Onexamination, blood pressure was 112/43. Head is normal. Heart rate is 50. Lungs are clear. Abdomen is soft.The assessment was patient with [place]io arrhythmia, presyncope, dehydration.LABORATORY & X-RAY DATA:Lab tests showed sodium was 135, potassium was 4.2, BUN was 11.7. Lactic acid was 0.8.Hemoglobin was 11.3. Troponin repeat was normal. EKG showed sinus bradycardia of 48. RepeatEKG was normal with no acute change. Thyroid panel was normal. CRP was low at 0.28. Lyme titerwas done and the report is not back.HOSPITAL COURSE:The patient was treated with telemetry monitoring. She was given Flagyl 500 mg b.i.d., Macrobid 100mg b.i.d. for a UTI, which she had a [facility] ER. We are getting records from [facility] and theyare not available at this time. However, she was monitored for 36-48 hours. Her heart rate recovered.Most of the time, the heart rate stayed between 50-60, so it was decided to discharge her and followher in the office. The patient was dehydrated and she was given normal saline at 80 cc/hr for 1000 ccfor dehydration and she did very well.DISCHARGE DIET:Regular diet.DISCHARGE MEDICATIONS:Flagyl 500 mg b.i.d.DISCHARGE FOLLOW-UP:Follow up by her private physician in one week.FINAL DIAGNOSES:1. Presyncope2. Sinus bradycardia [address] [place] [address] DISCHARGE SUMMARYNAME: COLIN DECKER ROOM#: [id number] OF : 2000 MR#: [id number] PHYS: Steven Olivares MD, DATE: 03/08/20 DISCHARGED: 03/10/20 3. Anxiety neurosis 4. DehydrationDD: Steven Olivares MD, PC 03/10/20 10:36DT: DMZ 03/10/20 22:35DS: Steven Olivares MD, PC 03/14/20 08:56 2 Name Value Range Interpretation Code Description Data Libia rce(s) Supporting Document(s) ID Date Data Source [id number] 03/11/2020 09:39:00 [place] [address] PHONE: [phone] FAX: [phone] Name .................. : COLIN DECKER Acct Number.................. : [id number] ROOM. ................. : [facility] MR Number ................... : [id number] Stay type ............. : O/P Discharge Date......... ... : Admit Date ......... : 03/08/20 Admit Phys .................... : TABITHA REGINA Date of ....... : 2000 Family Phys ................... : [employer] Phone .................. : [phone] Age ................................ : 19 Film# .................. .:[id number] Sex ................................. : F Unsigned transcriptions are preliminary reports and do not represent a medical or legal document CT HEAD W/O CONTRAST [id number] COMPLETE:03/08/20 22:22 KJE 55 Reason(s): Syncope CT OF THE HEAD WITHOUT CONTRAST: INDICATION: Syncope. FINDINGS: No intra-axial or extra-axial collections of fluid. Ventricles and sulci unremarkable. No midline shift or mass effect. Visualized paranasal sinuses and mastoid air cells unremarkable. IMPRESSION: No acute intracranial process. While performing the above CT examination, radiation dose reduction was accomplished utilizing automated exposure control, adjusting of the mA and kV based on the patient's body size and/or the use of imperative reconstructive techniques. CT dose: 836.5 mGycm Electronically Reviewed and Signed By Vance Chung M.D. , 03/11/20 09:39, [place] Transcribe Initials: DZ , Transcribe Date: 03/08/20 23:46, Dictation Date: Copy for: KAMRYN Valles via fax Copy for: EMERGENCY DEPT via modem Copy for: 710 MED REC DISCHARGED Page 1 of 1 Name Value Range Interpretation Code Description Data Libia rce(s) Supporting Document(s) ID Date Data Source [id number] 03/11/2020 09:39:00 AM EST [facility] [address] [place] [address] PHONE: [phone] FAX: [phone] Name .................. : COLIN DECKER Acct Number.................. : [id number] ROOM. ................. : CCU2 MR Number ................... : [id number] Stay type ............. : O/P Discharge Date......... ... : Admit Date ......... : 03/08/20 Admit Phys .................... : TABITHA REGINA Date of ....... : 2000 Family Phys ................... : KAMRYN CRABTREE Phone .................. : [phone] Age ................................ : 19 Film# .................. .:[id number] Sex ................................. : F Unsigned transcriptions are preliminary reports and do not represent a medical or legal document CHEST 2 VIEWS [id number] COMPLETE:03/08/20 22:22 KJE 52 Reason(s): Chest Pain CHEST X-RAY: 2-VIEWS INDICATION: Chest pain. FINDINGS: The cardiac and mediastinal silhouettes appear normal and the lungs are clear. The bones and soft tissues are normal. The upper abdomen is unremarkable. IMPRESSION: No acute disease identifiable. Electronically Reviewed and Signed By Vance Chung M.D. , 03/11/20 09:39, [facility] Transcribe Initials: LIBAN , Transcribe Date: 03/08/20 23:45, Dictation Date: Copy for: KAMRYN Valles via fax Copy for: EMERGENCY DEPT via modem Copy for: 710 MED REC DISCHARGED Page 1 of 1 Name Value Range Interpretation Code Description Data Libia rce(s) Supporting Document(s) ID Date Data Source [id number] 03/15/2020 05:16:00 PM [facility] Name Value Range Interpretation Code Description Data Libia rce(s) Supporting Document(s) CULTURE URINE [facility] spital _CULTURE URINE_$$[id number]$$729018$$146883$$179529$$320994$$322277$$491242$$747258$$173246$$ 416258$$218076$$382680$$807473$$906645$$647704$$824506$$131859$$787077$$525696$$ 708168$$044681$$296292$$962473$$404272$$765077$$185070$$224568 -- Continued on next page --Patient: COLIN DECKER Order: [id number] Page 2Culture: CULTURE URINE Status: Final ==== -- Continued on next page --Patient: COLIN DECKER Order: [id number] Page 2Culture: CULTURE URINE Status: Prelim =====$$[id number]$$[id number] DATE/TIME: 03/15/2020 16:06Culture: CULTURE URINE Status: FinalUrine Culture,Comprehensive: P1No growth in 36 - 48 hours. Previous result entered on 03/13/2020 06:40 ET No growth after 18-24 hours.P1 Test performed by: [facility] MAC #: [id number] [address] [place] [id number] [facility] [address]Medical Director : Jason Vann MD NPI #:Lab Julita shireen : 03/13/20.0754.XMT.SENT REF 03/15/20.1716.XMT.SENT REF 03/15/20.1716.DW .to [facility] via modem ID Date Data Source [id number] 03/09/2020 03:40:00 PM EST [facility] Name Value Range Interpretation Code Description Data Libia rce(s) Supporting Document(s) TROPONIN T <0.01 NG/ML 0.00 - 0.10 [facility] TROPONIN T0.1 ng/ml Recommended as the c linical threshold value forTroponin T. ID Date Data Source [id number] 03/09/2020 10:21:00 AM [facility] Name Value Range Interpretation Code Description Data Libia rce(s) Supporting Document(s) TROPONIN T <0.01 NG/ML 0.00 - 0.10 [facility] ospital TROPONIN T0.1 ng/ml Recommended as the c linical threshold value forTroponin T. ID Date Data Source [id number] 03/09/2020 10:29:00 AM [facility] Value Range Interpretation Code Description Data Libia rce(s) Supporting Document(s) Thyrotropin [Units/volume] in Serum or Plasma by Detec tion limit <= 0.05 mIU/L 2.69 uIU/mL 0.47 - 5.01 [facility] ID Date Data Source [id number] 03/09/2020 10:46:00 AM [facility] Value Range Interpretation Code Description Data Libia rce(s) Supporting Document(s) C reactive protein [Mass/volume] in Serum or Plasma by High sensitivity method 0.23 MG/L 1.00 - 3.00 L [facility] HS-CRP CUT-OFF: RELATIVE RISK: <1.0 mg/L Low 1.0 - 3.0 mg/L Average >3.0 mg/L High Optimally, the average of HS-CRP results repeated two weeks apart should be used for risk assessment. ID Date Data Source [id number] 03/09/2020 12:19:00 PM [facility] Value Range Interpretation Code Description Data Libia rce(s) Supporting Document(s) Thyroxine (T4) [Mass/volume] in Serum or Plasma 7.3 UG/DL 4.5 - 12.5 [facility] ID Date Data Source [id number] 03/09/2020 12:19:00 PM [facility] Value Range Interpretation Code Description Data Libia rce(s) Supporting Document(s) Cobalamin (Vitamin B12) [Mass/volume] in Serum or Plasma 353 PG/ML 232 - 1245 [facility] ID Date Data Source [id number] 03/09/2020 12:40:00 PM [facility] Value Range Interpretation Code Description Data Libia rce(s) Supporting Document(s) Iron [Mass/volume] in Serum or Plasma 35 UG/DL 42 - 135 L [facility] ID Date Data Source [id number] 03/11/2020 06:20:00 PM [facility] Name Value Range Interpretation Code Description Data Libia rce(s) Supporting Document(s) Nuclear Ab [Titer] in Serum by Immunofluorescence Negative [facility] Negative <1:80 Borderline 1:80 Positive >1:80 ID Date Data Source [id number] 03/09/2020 09:26:00 AM [facility] [address] [place] [address] RESPIRATORY CARE REPORT ==== ---------NAME------- NUMBER SEX AGE ADMIT DISC. XRAY# F/C LENORA DECKER [id number] F 19 03/08/20 [id number] X6B O/P DATE OF : 2000 M/R# [id number] #: [id number] CCU2 LOCATION: EMERGENCY DEPT [facility] [address] COMPL ETE:03/09/20 08:07 [place] [address] PHYSICIAN: TABITHA TAPIA Name Value Range Interpretation Code Description Data Libia rce(s) Supporting Document(s) ID Date Data Source [id number] 03/09/2020 09:25:00 AM [facility] [address] [address] RESPIRATORY CARE REPORT ==== ---------NAME------- NUMBER SEX AGE ADMIT DISC. XRAY# F/C LENORA EDCKER [id number] F 03/08/20993708 X6B O/P DATE OF : 2000 M/R# [id number] PH#: [phone] CCU2 LOCATION: EMERGENCY DEPT EKG 53489 COMPL ETE:03/09/20 09:24 32510 PHYSICIAN: TABITHA TAPIA Name Value Range Interpretation Code Description Data Libia rce(s) Supporting Document(s) ID Date Data Source [id number] 03/09/2020 09:24:00 [place] [address] RESPIRATORY CARE REPORT ==== ---------NAME------- NUMBER SEX AGE ADMIT DISC. XRAY# F/C LENORA DECKER [id number] F 03/08/20940346 X6B O/P DATE OF : 2000 M/R# [id number] PH#: [phone] CCU2 LOCATION: EMERGENCY DEPT EKG 08844 COMPL ETE:03/09/20 08:04 59097 PHYSICIAN: TABITHA GORDON Name Value Range Interpretation Code Description Data Libia rce(s) Supporting Document(s) ID Date Data Source [id number] 03/08/2020 08:20:00 PM [facility] 1 OrderSheet [facility] Emergency Department [address] [place] [address] Phone #: ext- [phone] 03/08/2020 20:07 Patient: SHELLI SHAW Sex: F : 2000 Age: 19yWEIGHT:58.0 kgALLERGIES: No Known Drug AllergyCHIEF COMPLAINT: chest painDIAGNOSIS: Sinus bradycardia, SyncopeLAB ORDERSOrder Description Priority Entered Acknowledged InitialedUrinalysis (Clean STAT 21:02 03/08/2020 Ack'd: 21:35 Giuliana 21:42 Giuliana Marie) Juan Coon R.NChiara Physician;Urine Drug Screen STAT 21:02 03/08/2020 Ack'd: 21:35 Giuliana 21:42 Giuliana Coon R.N. Physician;Troponin-T STAT 21:02 03/08/2020 Ack'd: 21:35 Giuliana 21:42 Giuliana Coon R.N. Physician;CBC w Diff STAT 21:02 03/08/2020 Ack'd: 21:35 Giuliana 21:42 Giuliana Coon R.N. Physician;CMP STAT 21:02 03/08/2020 Ack'd: 21:35 Giuliana 21:42 Giuliana Coon R.N. Physician;D-Dimer STAT 21:02 03/08/2020 Ack'd: 21:35 Giuliana 21:42 Giuliana Coon R.N. Physician;HCG Serum Qual STAT 21:02 03/08/2020 Ack'd: 21:35 Giuliana 21:42 Giuliana Coon R.N. Physician;Lactic Acid STAT 21:02 03/08/2020 Ack'd: 21:35 Giuliana 21:42 Giuliana Coon R.N. Physician;Lipase STAT 21:02 03/08/2020 Ack'd: 21:35 Giuliana 21:42 Giuliana Coon R.N. Physician;Rapid Strep Screen STAT 21:02 03/08/2020 Ack'd: 21:35 Giuliana 21:44 Giuliana Coon R.N. Physician;Lyme Disease STAT 22:37 03/08/2020 02:20 03/09/2020 2 OrderSheet [facility] Emergency Department [address] [place] [address] Phone #: ext- [phone] 03/08/2020 20:07 Patient: SHELLI SHAW Sex: F : 2000 Age: 19yAntibodies Juan Coon Physician; R.N.TSH STAT 22:37 03/08/2020 02:20 03/09/2020 Juan Coon Physician; R.N.T4 (Thyroxine) STAT 22:37 03/08/2020 02:20 03/09/2020 Juan Coon Physician; R.N.DIAGNOSTIC STUDY ORDERSOrder Description Priority Entered Acknowledged InitialedChest 2 View STAT 21:02 03/08/2020 Ack'd: 21:35 Giuliana 21:52 Arik(Oxygen?(No)) Juan Cuba R.N. Physician; Reason for Study: Chest PainCT Head W/O Cont STAT 21:32 03/08/2020 Ack'd: 21:35 Giuliana 21:52 Arik(Oxygen?(No)) Juan Cuba R.N. Physician; NOTES: Near syncope Reason for Study: Syncope, Vertigo/Dizziness, WeaknessMEDICATION/IV/DRIP/FLUID ORDERSOrder Description Priority Entered Acknowledged InitialedNS IV 1000 mL 21:07 03/08/2020 Ack'd: 21:34 Giuliana 22:09 [place],Bolus: : Bolus 1000 Juan Cuba R.N.mL (X1) Physician;GENERAL ORDERSOrder Description Priority Entered Acknowledged InitialedCardiac Monitor 21:02 03/08/2020 21:34 Giuliana Dorsey(continuous) Juan Coon R.N. Physician;EKG 21:02 03/08/2020 21:34 Giuliana Coon R.N. Physician;Pulse oximeter 21:02 03/08/2020 21:34 Giuliana Dorsey(Continuous) Juan Coon R.N. Physician;Saline Lock 21:02 03/08/2020 Ack'd: 21:35 Giuliana 21:42 Giuliana Willian Coon R.N. Physician;[Electronically signed by Giuliana Shankar R.N. (02:03/09/2020)] 3 OrderSheet [facility] Emergency Department [address] [place] [address] Phone #: ext- [phone] 03/08/2020 20:07 Patient: SHELLI SHAW Sex: F : 2000 Age: 19y[Electronically signed by Juan Waterman Physician (05:44 03/09/2020)][Electronically locked by Giuliana Shankar R.N. (02:20 03/09/2020)] Name Value Range Interpretation Code Description Data Libai rce(s) Supporting Document(s) ID Date Data Source [id number] 03/08/2020 08:20:00 PM EST [facility] 1 Medication Reconciliation Report [facility] Emergency Department [address] [place] [address] Phone #: ext- [phone] 03/08/2020 20:07 Patient: SHELLI SHAW Sex: F : 2000 Age: 19yWeight: 58.0 kgHeight/Length: 64 in.BMI: 22.0ALLERGIES: No Known Drug AllergyThe patient's Home Medications are listed below:THE FOLLOWING MEDICATIONS NEED TO BE RECONCILED: Takes an antibiotic for Chlamydia, has been on it for 2 daysThe source(s) of the original Home Medication information:Not obtained.The following Medications were given to the patient in the Emergency Department:NS [IV] IV Fluids bolus 0, then 1000 mL/hr, administered: 22:09 03/08/2020The following Medications were prescribed to the patient:None. Name Value Range Interpretation Code Description Data Libia rce(s) Supporting Document(s) ID Date Data Source [id number] 03/08/2020 08:20:00 PM EST [facility] 1 Medication Administration Record [facility] Emergency Department [address] [place] [address] Phone #: ext- [phone] 03/08/2020 20:07 Patient: SHELLI SHAW Sex: F : 2000 Age: 19yWeight: 58.0 kgHeight/Length: 64 inBMI: 22ALLERGIES: No Known Drug Allergy Date/Time Medication Administered Medication OrderedStart NS [IV] NS IV 1000 mL Bolus: : Bolus 804396:09 03/08/2020 Dose: IV Fluids mL (X1)Bereket Elise R.N. Rate: 1000 mL/hr over 60 minute(s)---- Dispensed: 1000 mL bagContinued Upon Admission Site: #1 left AC23:00 03/08/2020Giuliana Coon R.N. Name Value Range Interpretation Code Description Data Libia [facility](s) Supporting Document(s) ID Date Data Source [id number] 03/08/2020 08:20:00 PM [facility] 1 General Instructions [facility] Emergency Department [address] [place] [address] Phone #: ext [phone] 03/08/2020 20:07 Patient: SHELLI SHAW Sex: F : 2000 Age: 19yVasovagal syncope(Symptomatic bradycardia).Sinus bradycardia (Symptomatic).(Electronically signed by Juan Waterman, Physician 03/09/2020 05:44) Name Value Range Interpretation Code Description Data [facility](s) Supporting Document(s) ID Date Data Source [id number] 03/08/2020 08:20:00 PM [facility] 1 Clinical Report - Nurses [facility] Emergency Department [address] [place] [address] Phone #: ext [phone] 03/08/2020 20:07 Patient: SHELLI SHAW Sex: F : 2000 Age: 19yTRIAGEArrived by private vehicle. Historian: patient. Accompanied by (cousin).Triage time: 20:10 03/08/2020.Chief Complaint: CHEST PAIN and (Near syncope).( states she nearly passed out twice and is have constant central sharp pain). No difficulty breathing,sweating episodes, nausea, vomiting or fever. No cough.SEPSIS SCREEN: SEPSIS SCREEN NEGATIVE. No suspected or confirmed signs of infection present.--20:16 12/11/20 Giuliana Coon R.N.20:12 03/08/20. BP: 112/46. MAP: 68. HR: 49. RR: 18. O2 saturation: 100%. Temp: 97.3 F. Pain levelnow: 11/05. --20:16 03/08/20 Giuliana Coon R.N.Acuity: LEVEL 2. --20:16 03/08/20 Giuliana Coon R.N.Weight: 58 kg. Height/Length: 64 inches. BMI: 22. --20:10 03/08/20 Giuliana Coon R.N.MedicationsTakes an antibiotic for Chlamydia, has been on it for 2 days. --20:17 03/08/20 Giuliana Coon R.N.AllergiesNo Known Drug Allergy. --20:17 03/08/20 Giuliana Coon R.N.ADDITIONAL SURGERIES:no known surgeries.HistoryPAST MEDICAL HX: Last normal menstrual period- Jan. 1. Para 1. Sexual history - sexuallyactive. No contraception.SOCIAL HX: Light tobacco smoker (cigarette)- less than 1/2 a pack per day. Drug use: marijuana. (lastuse over a week ago per pt). No alcohol use. She was offered HIV testing but declined and hepatitis Ctesting but declined. She has not traveled outside the [place]Infectious disease exposure: No infectious disease exposure.SELF HARM ASSESSMENT: Self harm assessment was performed. The patient answered "no" to thequestion(s) "Do you have thoughts of harming or killing yourself?" and "Do you have a plan for harming orkilling yourself?". 2 Clinical Report - Nurses [facility] Emergency Department [address] [place] [address] Phone #: ext- [phone] 03/08/2020 20:07 Patient: SHELLI SHAW Sex: F : 2000 Age: 19y ABUSE ASSESSMENT: No report of abuse. FALL RISK ASSESSMENT: Fall risk assessment completed. Risk factors identified include severe pain and dizziness. Fall interventions initiated. Bed in low position. Brakes on. Call light in reach of patient. Instructed not to get up without assistance. --20:16 03/08/20 Giuliana Coon R.N.PHYSICAL ASSESSMENTGENERAL / NEURO / PSYCH: Alert. Oriented X 4. Appears anxious.RESPIRATORY: Respirations not labored.CVS: Cardiac rhythm: sinus bradycardia; (42).GI / : Abdomen soft.EXTREMITIES: No lower extremity edema.SKIN: Skin is warm and dry. --20:42 03/08/20 Bereket Elise R.N.NURSING PROGRESS NOTESCardiac monitor placed on patient; monitor alarms on; see monitor strips. Patient gowned. Head of bedelevated. Reassurance given. Call light placed in reach. Bed placed in lowest position. Brakes of bedon. --20:26 03/08/20 Giuliana Coon R.N. 20:26 03/08/20. BP: 108/61. MAP: 76. HR: 42. RR: 16. O2 saturation: 100%. --20:26 03/08/20 Giuliana oCon R.N. Patient transported to radiology and CT by wheelchair with tech. --21:52 03/08/20 Bereket Elise R.N. 22:03/08/2020 Site #1 started via IV in the left antecubital space with an 20g angiocath; one attempt. --22:03/08/20 Bereket Elise R.N. 22:03/08/2020 Started bag #1 1000 mL IV Fluids NS; at 1000 mL/hr over 60 minute(s) via site #1 --22:03/08/20 Bereket Elise R.N. 22:03/08/20. BP: 100/78. MAP: 85. HR: 42. RR: 16. O2 saturation: 98%. Temp: deferred. Pain level now: 0/10. --22:10 03/08/20 Bereket Elise R.N. ( see print out for monitoring of v/s.). --22:47 03/08/20 Giuliana Coon R.N. 23:00 03/08/2020 IV Fluids NS via IV site #1 Continued: upon admission at the rate of 80 mL/hr. 150 mL remaining bag #1. --23:16 03/08/20 Giuliana Coon R.N.DISPOSITION / DISCHARGE Bed obtained (Rm 102). ( Orders rec'd from Dr Olivares to admit to OBS Status on AIU on TELE for further testing.). --22:46 03/08/20 Giuliana Coon R.N. 22:46 03/08/2020 Site #[address] upon admission. --22:46 03/08/20 Giuliana Coon R.N. 3 Clinical Report - Nurses [facility] Emergency Department [address] [place] [address] Phone #: ext- [phone] 03/08/2020 20:07 Patient: SHELLI SHAW Sex: F : 2000 Age: 19y Condition at departure: stable. --22:46 03/08/20 Giuliana Coon R.N. Departure time: 23:03 03/08/2020. Condition at departure: stable. Transported via stretcher with monitor. Report was given to a nurse via a phone call and in person. Report was acknowledged. (FLORES, RN). Patient's personal items; items were placed in belongings bag, given to the patient and transported with the patient. --23:16 03/08/20 Giuliana Coon R.N. 23:00 03/08/20. BP: 116/59. MAP: 78. HR: 43. RR: 16. O2 saturation: 98%. Temp: 99.2 F. Pain level now: 5/10. --23:16 03/08/20 Giuliana Coon R.N.Locked/Released at 03/09/2020 02:20 by Giuliana Coon R.N. Name Value Range Interpretation Code Description Data Libia rce(s) Supporting Document(s) ID Date Data Source [id number] 03/08/2020 08:20:00 PM [facility] 1 Clinical Report - Physicians/Mid Levels [facility] Emergency Department [address] [place] [address] Phone #: ext- [phone] 03/08/2020 20:07 Patient: SHELLI SHAW Sex: F : 2000 Age: 19y Time Seen: 20:15 03/08/2020. Arrived- By private vehicle. Historian- patient. RETURN VISIT: recently seen in this ED by another ED physician. Seen now for a new unrelated complaint and the same problem as before (Seen for chest pain last month). Disposition decision: 22:39 03/08/2020.HISTORY OF PRESENT ILLNESS Chief Complaint: CHEST PAIN. It is described as pressure, tightness, aching and "pain" and it is described as located in the central chest area. No radiation. This started today Denies any chest pain now and is still present and worsening. It was abrupt in onset and has been waxing/waning. Onset during light activity. At its maximum, severity described as 8 / 10. When seen in the E.D., it was gone. Modifying factors- worsened by exertion. No nausea, vomiting, difficulty breathing or diaphoresis. No additional chest pain. (Pt. said she took an OTC med today but could not recall the name. She denies use of illegal drugs or attempt at overdose.). Similar symptoms previously. Recent medical care: The patient was seen recently at another facility in the emergency department. ( Seen at [facility] last week - Dxd. with Chlamydia and discharged on ABX).REVIEW OF SYSTEMSNo fever, chills, cough, pedal edema or calf pain. No missed periods, abnormal bleeding, vaginaldischarge, fainting episodes or headache. No sore throat, blurred vision, abdominal pain, black stools ordifficulty with urination. No skin rash, enlarged lymph nodes, joint pain or bloody stools.PAST HISTORYPast history not negative. See nurses notes. Other disease. Chlamydia urethritis (recent)[id number] substance abuse.SOCIAL HISTORYLight tobacco smoker (cigarette)- less than 1/2 a pack per day. Occasional drug use: marijuana. Noalcohol use.ADDITIONAL NOTESThe nursing notes have been reviewed with agreement regarding the chief complaint, HPI, ROS, PMH andpatient medications and allergies.PHYSICAL EXAMVital Signs: 03/08/2020 20:12 BP: 112/46. MAP: 68. HR: 49. RR: 18. O2 saturation: 100%. Temp: 97.3 F. 2 Clinical Report - Physicians/Mid Levels [facility] Emergency Department [address] [place] [address] Phone #: ext- [phone] 03/08/2020 20:07 Patient: SHELLI SHAW Sex: F : 2000 Age: 19y Pain level now: 11/05. Have been reviewed and appear to be correct. Blood pressure normal. Bradycardic. Respiratory rate normal. Tem perature normal. Oxygen saturation normal. Appearance: Alert. Oriented X3. Anxious. Patient in moderate distress. Eyes: Pupils equal, round and reactive to light. Eyes inspection not normal. Pale conjunctivae. ENT: Nose normal. Pharynx normal. Neck: Normal inspection. Neck supple. CVS: Heart rate abnormal. Bradycardia. Normal heart rhythm. Heart sounds normal. Pulses normal. Respiratory: No respiratory distress. Painless inspiration. Breath sounds normal. Chest nontender. Abdomen: Soft and nontender. Bowel sounds normal. No organomegaly. No mass. Back: Normal external inspection. Skin: Skin warm and dry. Abnormal skin color. No rash. Normal skin turgor. Pallor. Extremities: Extremities exhibit normal ROM. No lower extremity edema. Neuro: Oriented X 3. No motor deficit. No sensory deficit.LABS, X-RAYS, AND EKGChest X-ray: Normal Chest X-Ray.CT Head: No acute disease.Laboratory Tests: Laboratory tests have been ordered, with results reviewed and considered in themedical decision making process. CT Head W/O Cont: (SARAHI: 03/08/2020 21:32) ( [facility] 03/08[facility] 22:22) In Progress CT HEAD W/O CONTRAST Reason(s): Syncope TRANSPORTATION: S IV? O2? Oxygen?(No) Room: ED : HCG Pending CMTS: Near syncope Urinalysis: (SARAHI: 03/08/2020 21:00) ( [facility] [place]/08/[place] 21:21) Final results Test Result Flag Units (Reference) URINALYSIS URINALYSIS SOURCE Clean Catch COLOR yellow (NORMAL: Yello CLARITY clear (NORMAL: Clear SPEC GRAVITY 1.020 (1.001 - 1.030 pH 6.5 (5 - 9) GLUCOSE NORM (NORMAL: Negat BILIRUBIN NEG (NORMAL: Negat KETONE 5 A (NORMAL: Negat PROTEIN NEG (NORMAL: Negat NITRITE NEG (NORMAL: Negat BLOOD NEG (NORMAL: Negat LEUK EST 100 A (NORMAL: Negat UROBILINOGEN NOR (less than 1.0 MICROSCOPIC See Below WBC 7 - 10 A (NORMAL: NONE EPITHELIAL MODERATE A (NORMAL: NONE MUCOUS Trace (NORMAL: NONE Drug Screen-Urine: (SARAHI: 03/08/2020 21:00) ( [facility] [place]08[place] 21:24) Final results Test Result Flag Units (Reference) 3 Clinical Report - Physicians/Mid Levels [facility] Emergency Department [address] [place] [address] Phone #: ext- [phone] 03/08/2020 20:07 Patient: SHELLI SHAW Sex: F : 2000 Age: 19y DRUG SCREEN URINE URINE DRUG SCREEN AMPHETAMINES NEGATIVE (NORMAL: NEGAT BARBITURATES NEGATIVE (NORMAL: NEGAT BENZO NEGATIVE (NORMAL: NEGAT COCAINE NEGATIVE (NORMAL: NEGAT THC NEGATIVE (NORMAL: NEGAT OPIATES NEGATIVE (NORMAL: NEGAT PCP NEGATIVE (NORMAL: NEGAT \\BLDo\\URINE DRUG SCREEN INTERPRETATION\\BLDx\\ THE CUTOFFF LEVELS FORDETECTION ARE FOLLOWS: AMPHETAMINES 1000 ng/mlBARBITUARATES 200 ng/ml BENZODIAZEPINES 100 ng/mlTHC 50 ng/ml PHENCYCLIDINE 25 ng/mlOPIATES 300 ng/ml COCAINE 300 ng/mlALL POSITIVES ARE CONSIDERED PRESUMPTIVE POSITIVE CONFIRMATION WILL BE PERFORMED AT [facility].Troponin-T: (SARAHI: 03/08/2020 21:10) ( [facility] 03/08/2020 21:50) Final results Test Result Flag Units (Reference) TROPONIN T <0.01 NG/ML (0.00 - 0.10) TROPONIN T0.1 ng/ml Recommended as the clinical threshold value forTroponin T.CBC w Diff: (SARAHI: 03/08/2020 21:10) ( [facility] 03/08/2020 21:30) Final results Test Result Flag Units (Reference) CBC W/AUTOMATED DIFF COMPLETE BLOOD COUNT WBC 7.0 10/uL (4.2 - 11.0) RBC 3.90 L 10/uL (4.20 - 5.40) HEMOGLOBIN 11.3 L g/dL (12.0 - 16.0) HEMATOCRIT 34.5 L % (37.0 - 47.0) MCV 88.5 fL (81.0 - 101) MCH 29.0 pg (27.0 - 34.0) MCHC 32.8 g/dL (31.0 - 36.0) RDW 13.8 % (11.5 - 14.5) PLATELETS 214 10/uL (150 - 450) MPV 9.6 fL (7.4 - 10.4) NEUT 61.4 % (37.0 - 80.0) LYMPH 30.0 % (25.0 - 40.0) MONO 5.3 % (3.0 - 8.0) EOS 2.6 % (0.0 - 7.0) BASO 0.4 % (0.0 - 2.5) %IG 0.3 H % (0.0 - 0.0) %NRBC 0.0 % (0.0 - 0.0) #NEUT 4.31 10/uL (2.00 - 6.90) #LYMPH 2.10 10/uL (0.60 - 3.40) #MONO 0.37 10/uL (0.00 - 0.90) #EOS 0.18 10/uL (0.00 - 0.70) #BASO 0.03 10/uL (0.00 - 0.20) #IG 0.02 10/uL (0.00 - 0.10) #NRBC 0.00 10/uL (0.00 - 0.00) MANUAL DIFF NOT INDICATED RBC MORPH NOT INDICATEDCMP: (SARAHI: 03/08/2020 21:10) ( MsgRcvd 03/08/2020 21:50) Final results Test Result Flag Units (Reference) 4 Clinical Report - Physicians/Mid Levels [facility] Emergen cy Department [address] [place] [address] Phone #: ext- [phone] 03/08/2020 20:07 Patient: SHELLI SHAW Sex: F : 2000 Age: 19y COMPREHENSIVE METABOLIC PANEL COMPREHENSIVE METABOLIC PANEL SODIUM 135 mEq/L (134 - 153) POTASSIUM 4.2 mEq/L (3.6 - 5.0) CHLORIDE 100 mEq/L (98 - 107) CO2 29 MEQ/L (22 - 30) GLUCOSE 105 MG/DL (65 - 110) BUN 8 MG/DL (7 - 21) CREATININE 0.7 MG/DL (0.7 - 1.5) BUN/CREAT 11 (8 - 27) TOTAL PROTEIN 5.6 L G/DL (6.3 - 8.2) ALBUMIN 4.2 G/DL (3.9 - 5.0) GLOBULIN 1.4 L GM/DL (2.4 - 3.2) A/G RATIO 3.0 H (0.8 - 2.0) CALCIUM 8.9 MG/DL (8.4 - 10.2) TOTAL BILI <0.7 MG/DL (0.2 - 1.3) ALKALINE PHOS 60 U/L (38 - 126) SGOT/AST 8 U/L (5 - 40) SGPT/ALT 6 L U/L (7 - 56) ANION GAP 6.0 L mmol/L (8.0 - 16.0) AGE 19 yrs NON-AA GFR > 60 mL/min AFR AMER GFR >60 mL/min Male GFR Interprentation 20-49 yrs >60 mL/min Ruwkqq27-01 yrs >56 mL/min Normal 60-69 yrs >49 mL/min Normal 70-79yrs>42 mL/min Normal 80 and above >35 mL/min Normal Female GFRInterpretation 20-39 yrs >60 mL/min Normal 40-49 yrs >58 mL/minNormal 50-59 yrs >51 mL/min Normal 60-69 yrs >45 mL/min Bmliwp25-10 yrs >39 mL/min Normal 80 and above >32 mL/min NormalD-Dimer: (SARAHI: 03/08/2020 21:10) ( MsgRcvd 03/08/2020 21:44) Final results Test Result Flag Units (Reference) D-DIMER QUANT <0.27 ug/mL (0.27 - 0.50)Beta-HCG, Qual Serum: (SARAHI: 03/08/2020 21:10) ( MsgRcvd 03/08/2020 21:38) Final results Test Result Flag Units (Reference) HCG SERUM QUAL NEGATIVE (NORMAL: NEGAT HCG SERUM QL REENTER NEGATIVE (NORMAL: NEGAT { KIT LOT # [id number] ){ KIT EXP DATE01/01/21 ){ MD OCEDURAL CONTROL VALID)Lactic Acid: (SARAHI: 03/08/2020 21:10) ( MsgRcvd 03/08/2020 21:34) Final results Test Result Flag Units (Reference) LACTIC ACID 0.8 MMOL/L (0.2 - 2.2)Lipase: (SARAHI: 03/08/2020 21:10) ( MsgRcvd 03/08/2020 21:50) Final results Test Result Flag Units (Reference) LIPASE 20 U/L (13 - 60)Rapid Strep Screen: (SARAHI: 03/08/2020 21:43) ( Nvg[facility]cvd 03/08/2020 22:05) Final results Test Result Flag Units (Reference) RAPID STREP NEGATIVE (NORMAL: NEGAT RAPID STREP REENTER NEGATIVE (NORMAL: NEGAT 5 Clinical Report - Physicians/Mid Levels [facility] Emergency Department [address] [place] [address] Phone #: ext- [phone] 03/08/2020 20:07 Patient: SHELLI SHAW Sex: F : 2000 Age: 19y { PROCEDURAL CONTROL VALID ){ KIT LOT # [id number] ){ KIT EXP DATE 07/07/21 )The Strep A 2 assay utilizes isothermal nucleic acid amplification technology fothe qualitative detection of Group A Strep bacterial nucleic acid in throat swabspecimens.All negative test results no longer need to be confirmed with a culture. Follow-up testing requiring a culture is necessary if clinical symptoms persist, or inthe event of an acute rheumatic fever outbreak. A culture will need to beordered by the Qualified Medical Provider.Negative results do not preclude infection with Group A Strep and should not beused as the sole basis for treatment. Chest 2 View: (SARAHI: 03/08/2020 21:02) ( MsgRcvd 03/08/2020 22:22) In Progress CHEST 2 VIEWS Reason(s): Chest Pain TRANSPORTATION: WC IV? O2? Oxygen?(No) Room: ED . Note - Tests: (EKG - Marked sinus bradycardia with PACs / incomplete RBBB. HR of 42.).PROGRESS AND PROCEDURESCourse of Care: :Mar 08 2020. Patient is stable. :Mar 08 2020. Pt. in no pain now, but she is quite bradycardic. I have initiated labs and will monitor her rhythm closely. 22:07 Mar 08 2020. D-dimer off the bottom of the scale, thus P.E. very unlikely. Troponin is NL as well. Pt. has otherwise a significant bradycardia (symptomatic) that is likely the cause of her CP and near syncope. She did not have this bradycardia when she was evaluated here a month ago. 22:38 Mar 08 2020. I spoke with America Hutchins NP about pt. with symptomatic bradycardia, but she opted not to admit this pt., but rather, to discuss with Dr. Olivares. I then called Dr. Olivares and he will admit for observation for symptomatic bradycardia. Critical care performed (130 minutes). Time is exclusive of separately billable procedures. Time includes: direct patient care, patient reassessment, coordination of patient care, interpretation of data (laboratory data, pulse oximetry and chest xrays), review of patient's medical records, medical consultation and documentation of patient care- see progress notes. Procedures included in critical care time: peripheral IV placement and phlebotomy- see progress notes. Disposition: Observation in the Acute Inpatient Unit, Monitored. 22:40 Mar 08 2020 Admit to observation to Dr. Olivares for symptomatic bradycardia / syncope. UTI (catheter associated) was not present prior to being placed in observation. Pressure ulcer was not present prior to being placed in observation. Vascular infection (catheter associated)n was not present prior to being placed in observation. Surgical site infection was not present prior to being placed in observation. An object left in surgery was not present prior to being placed in observation. Blood incompatibility was not present prior to being placed in observation. Air embolism was not present prior to being placed in observation.CLINICAL IMPRESSION 6 Clinical Report - Physicians/Mid Levels [facility] Emergency Department [address] [place] [address] Phone #: ext- [phone] 03/08/2020 20:07 Patient: SHELLI SHAW Sex: F : 2000 Age: 19y Vasovagal syncope(Symptomatic bradycardia). Sinus bradycardia (Symptomatic).(Electronically signed by Juan Waterman, Physician 03/09/2020 05:44) Name Value Range Interpretation Code Description Data Libia rce(s) Supporting Document(s) ID Date Data Source [id number] 03/09/2020 03:32:00 AM [facility] Value Range Interpretation Code Description Data Libia rce(s) Supporting Document(s) TROPONIN T <0.01 NG/ML 0.00 - 0.10 [facility] ospital TROPONIN T0.1 ng/ml Recommended as the c linical threshold value forTroponin T. ID Date Data Source [id number] 03/08/2020 11:28:00 PM [facility] Name Value Range Interpretation Code Description Data Libia rce(s) Supporting Document(s) Thyrotropin [Units/volume] in Serum or Plasma by Detec tion limit <= 0.05 mIU/L 4.77 uIU/mL 0.47 - 5.01 [facility] ID Date Data Source [id number] 03/08/2020 11:28:00 PM [facility] Name Value Range Interpretation Code Description Data Libia rce(s) Supporting Document(s) Thyroxine (T4) [Mass/volume] in Serum or Plasma 7.3 UG/DL 4.5 - 12.5 [facility] ID Date Data Source [id number] 03/11/2020 08:30:00 PM [facility] Value Range Interpretation Code Description Data Libia rce(s) Supporting Document(s) Borrelia burgdorferi IgG+IgM Ab [Units/volume] in Serum <0.91 ISR 0. 00-0.90 [facility] Negative <0.91 Equivocal 0.91 - 1.09 Positive >1.09 Borrelia burgdorferi IgM Ab [Units/volume] in Serum by Immun oassay <0.80 index 0.00-0.79 [facility] Negative <0.80 Equivocal 0.80 - 1.19 Positive >1.19 IgM levels may peak at 3-6 weeks post infection, then gradually decline. ID Date Data Source [id number] 03/08/2020 10:04:00 PM [facility] Name Value Range Interpretation Code Description Data Libia rce(s) Supporting Document(s) RAPID STREP NEGATIVE NORMAL: NEGATIVE [facility] RAPID STREP REENTER NEGATIVE NORMAL: NEGATIVE [facility] { PROCEDURAL CONTROL VALID ){ KIT LOT # [id number] ){ KIT EXP DATE 07/07/21 )The Strep A 2 assay utilizes isothermal nucleic acid amplification technology fothe qualitative detection of Group A Strep bacterial nucleic acid in throat swabspecimens.All negative test results no longer need to be confirmed with a culture. Follow-up testing requiring a culture is necessary if clinical symptoms persist, or inthe event of an acute rheumatic fever outbreak. A culture will need to beordered by the Qualified Medical Provider.Negative results do not preclude infection with Group A Strep and should not beused as the sole basis for treatment. ID Date Data Source [id number] 03/08/2020 09:30:00 PM [facility] Name Value Range Interpretation Code Description Data [facility] Supporting Document(s) CBC W/AUTOMATED DIFF [facility] COMPLETE BLOOD COUNT Leukocytes [#/volume] in Blood by Automated count 7.0 10^3/uL 4.2 - 1 1.0 [facility] Erythrocytes [#/volume] in Blood by Automated count 3.90 10^6/uL 4. 20 - 5.40 L [facility] Hemoglobin [Mass/volume] in Blood 11.3 g/dL 12.0 - 16.0 L [facility] Hematocrit [Volume Fraction] of Blood by Automated count 34.5 % 3 7.0 - 47.0 L [facility] Erythrocyte mean corpuscular volume [Entitic volume] by Auto mated count 88.5 fL 81.0 - 101 [facility] Erythrocyte mean corpuscular hemoglobin [Entitic mass] by Automated count 29.0 pg 27.0 - 34.0 [facility] Erythrocyte mean corpuscular hemoglobin concentration [Mass/volume] by Automated count 32.8 g/dL 31.0 - 36.0 [facility] Erythrocyte distribution width [Ratio] by Automated count 13.8 % 11.5 - 14.5 [facility] Platelets [#/volume] in Blood by Automated count 214 10^3/uL 150 - 45 0 [facility] Platelet mean volume [Entitic volume] in Blood by Automated count 9.6 fL 7.4 - 10.4 [facility] Neutrophils/100 leukocytes in Blood by Automated count 61.4 % 37. 0 - 80.0 [facility] Lymphocytes/100 leukocytes in Blood by Manual count 30.0 % 25.0 - 40.0 [facility] Monocytes/100 leukocytes in Blood by Automated count 5.3 % 3.0 - 8.0 [facility] Eosinophils/100 leukocytes in Blood by Automated count 2.6 % 0.0 - 7.0 [facility] Basophils/100 leukocytes in Blood by Automated count 0.4 % 0.0 - 2.5 [facility] %IG 0.3 % 0.0 - 0.0 [facility] %NRBC 0.0 % 0.0 - 0.0 [facility] al Neutrophils [#/volume] in Blood by Automated count 4.31 10^3/uL 2.00 - 6.90 [facility] Lymphocytes [#/volume] in Blood by Automated count 2.10 10^3/uL 0.60 - 3.40 [facility] Monocytes [#/volume] in Blood by Automated count 0.37 10^3/uL 0.00 - 0.90 [facility] Eosinophils [#/volume] in Blood by Automated count 0.18 10^3/uL 0.00 - 0.70 [facility] Basophils [#/volume] in Blood by Automated count 0.03 10^3/uL 0.00 - 0.20 [facility] #IG 0.02 10^3/uL 0.00 - 0.10 [facility] #NRBC 0.00 10^3/uL 0.00 - 0.00 [facility] ospital MANUAL DIFF NOT INDICATED [facility] RBC MORPH NOT INDICATED [facility] Ho spital ID Date Data Source [id number] 03/08/2020 09:33:00 PM [facility] Name Value Range Interpretation Code Description Data Libia rce(s) Supporting Document(s) Lactate [Moles/volume] in Serum or Plasma 0.8 MMOL/L 0.2 - 2.2 [facility] ID Date Data Source [id number] 03/08/2020 09:38:00 PM [facility] Name Value Range Interpretation Code Description Data Libia rce(s) Supporting Document(s) HCG SERUM QUAL NEGATIVE NORMAL: NEGATIVE [facility] HCG SERUM QL REENTER NEGATIVE NORMAL: NEGATIVE [facility] { KIT LOT # [id number] ){ KIT EXP DATE 01/01/21 ){ PROCEDURAL CONTROL VALID ) ID Date Data Source [id number] 03/08/2020 09:44:00 PM [facility] Name Value Range Interpretation Code Description Data Libia rce(s) Supporting Document(s) Fibrin D-dimer FEU [Mass/volume] in Platelet poor plasma <0. 27 ug/mL 0.27 - 0.50 [facility] ID Date Data Source [id number] 03/08/2020 09:50:00 PM [facility] Name Value Range Interpretation Code Description Data Libia rce(s) Supporting Document(s) COMPREHENSIVE METABOLIC PANEL [facility] COMPREHENSIVE METABOLIC PANEL Sodium [Moles/volume] in Serum or Plasma 135 mEq/L 134 - 153 [facility] Potassium [Moles/volume] in Serum or Plasma 4.2 mEq/L 3.6 - 5.0 [facility] Chloride [Moles/volume] in Serum or Plasma 100 mEq/L 98 - 107 [facility] Carbon dioxide, total [Moles/volume] in Serum or Plasma 29 MEQ/L 22 - 30 [facility] Glucose [Mass/volume] in Serum or Plasma 105 MG/DL 65 - 110 [facility] BUN 8 MG/DL 7 - 21 [facility] al Creatinine [Mass/volume] in Serum or Plasma 0.7 MG/DL 0.7 - 1.5 [facility] BUN/CREAT 11 8 - 27 [facility] al Protein [Mass/volume] in Serum or Plasma 5.6 G/DL 6.3 - 8.2 L [facility] Albumin [Mass/volume] in Serum or Plasma 4.2 G/DL 3.9 - 5.0 [facility] Globulin [Mass/volume] in Serum by calculation 1.4 GM/DL 2.4 - 3.2 L [facility] A/G RATIO 3.0 0.8 - 2.0 H [facility] Calcium [Mass/volume] in Serum or Plasma 8.9 MG/DL 8.4 - 10.2 [facility] Bilirubin.total [Mass/volume] in Serum or Plasma <0.7 MG/DL 0.2 - 1.3 [facility] Alkaline phosphatase [Enzymatic activity/volume] in Serum or Plasma 60 U/L 38 - 126 [facility] Aspartate aminotransferase [Enzymatic activity/volume] in Se rum or Plasma 8 U/L 5 - 40 [facility] Alanine aminotransferase [Enzymatic activity/volume] in Seru m or Plasma 6 U/L 7 - 56 L [facility] Anion gap 3 in Serum or Plasma 6.0 mmol/L 8.0 - 16.0 L [facility] AGE 19 yrs [facility] al NON-AA GFR >60 mL/min [facility] ital AFR AMER GFR >60 mL/min [facility] Ho spital Male GFR In terprentation 20-49 yrs >60 mL/min Normal 50-59 yrs >56 mL/min Normal 60-69 yrs >49 mL/min Normal 70-79yrs >42 mL/min Normal 80 and above >35 mL/min Normal Female GFR Interpretation 20-39 yrs >60 mL/min Normal 40-49 yrs >58 mL/min Normal 50-59 yrs >51 mL/min Normal 60-69 yrs >45 mL/min Normal 70-79 yrs >39 mL/min Normal 80 and above >32 mL/min Normal ID Date Data Source [id number] 03/08/2020 09:50:00 PM [facility] Name Value Range Interpretation Code Description Data Libia rce(s) Supporting Document(s) Lipase [Enzymatic activity/volume] in Serum or Plasma 20 U/L 13 - 60 [facility] ID Date Data Source [id number] 03/08/2020 09:50:00 PM [facility] Name Value Range Interpretation Code Description Data Libia rce(s) Supporting Document(s) TROPONIN T <0.01 NG/ML 0.00 - 0.10 [facility] ospital TROPONIN T0.1 ng/ml Recommended as the c linical threshold value forTroponin T. ID Date Data Source [id number] 03/08/2020 09:21:00 PM [facility] Name Value Range Interpretation Code Description Data Libia rce(s) Supporting Document(s) URINALYSIS [facility] URINALYSIS SOURCE Clean Catch [facility] ital COLOR yellow NORMAL: Yellow [facility] CLARITY clear NORMAL: Clear [facility] sp[facility] Specific gravity of Urine by Test strip 1.020 1.001 - 1.030 [facility] pH 6.5 5 - 9 [facility] Glucose [Mass/volume] in Urine by Test strip NORM NORMAL: Negat [facility] Bilirubin.total [Presence] in Urine by Test strip NEG NORMAL: Negative [facility] Ketones [Presence] in Urine by Test strip 5 NORMAL: Negative [facility] Protein [Mass/volume] in Urine by Test strip NEG NORMAL: Negat [facility] Nitrite [Presence] in Urine by Test strip NEG NORMAL: Negative [facility] BLOOD NEG NORMAL: Negative [facility] Leukocyte esterase [Presence] in Urine by Test strip 100 MAIRA L: Negative [facility] Urobilinogen [Mass/volume] in Urine by Test strip NOR less severo n 1.0 mg/dL [facility] MICROSCOPIC See Below [facility] ital WBC 7 - 10 NORMAL: NONE SEEN A [facility] EPITHELIAL MODERATE NORMAL: NONE SEEN A [facility] Mucus [Presence] in Urine sediment by Light microscopy Trace NORMAL: NONE SEEN [facility] ID Date Data Source [id number] 03/08/2020 09:24:00 PM [facility] Name Value Range Interpretation Code Description Data Libia rce(s) Supporting Document(s) DRUG SCREEN URINE [facility] URINE DRUG SCREEN Amphetamine [Presence] in Urine by Screen method NEGATIVE NORMAL: N EGATIVE [facility] BARBITURATES NEGATIVE NORMAL: NEGATIVE [facility] BENZO NEGATIVE NORMAL: NEGATIVE [facility] COCAINE NEGATIVE NORMAL: NEGATIVE [facility] Tetrahydrocannabinol [Presence] in Urine NEGATIVE NORMAL: NEGATIVE [facility] OPIATES NEGATIVE NORMAL: NEGATIVE [facility] Phencyclidine [Presence] in Urine by Screen method NEGATIVE NOR MAL: NEGATIVE [facility] \\BLDo\\URINE DRUG SCR EEN INTERPRETATION\\BLDx\\ THE CUTOFFF LEVELS FOR DETECTION ARE FOLLOWS: AMPHETAMINES 1000 ng/ml BARBITUARATES 200 ng/ml BENZODIAZEPINES 100 ng/ml THC 50 ng/ml PHENCYCLIDINE 25 ng/ml OPIATES 300 ng/ml COCAINE 300 ng/ml ALL POSITIVES ARE CONSIDERED PRESUMPTIVE POSITIVE CONFIRMATION WILL BE PERFORMED AT PHYSICIAN REQUEST. ID Date Data Source [id number] 03/12/2020 12:09:00 PM [facility] Name Value Range Interpretation Code Description Data Libia rce(s) Supporting Document(s) CULTURE URINE [facility] spital _CULTURE URINE_$$[id number]$$[id number]$$[id number]$$[id number]$$[id number]$$412084$$230630$$798729$$924189$$ 756694$$916379$$427414$$375872$$166441$$390031$$822790$$640449$$185586$$045195$$ 168903$$201360$$259703$$470871$$511864$$221651$$[id number]$$[id number] -- Continued on next page --Patient: COLIN DECKER Order: [id number] Page 2Culture: CULTURE URINE Status: Final ==== -- Continued on next page --Patient: COLIN DECKER Order: [id number] Page 2Culture: CULTURE URINE Status: Prelim =====$$[id number]$$[id number] DATE/TIME: 03/12/2020 11:06Culture: CULTURE URINE Status: FinalUrine Culture,Comprehensive: P1No growth in 36 - 48 hours. Previous result entered on 03/11/2020 14:54 ET No growth after 18-24 hours.P1 Test performed by: [facility] ESTEFANIA #: [id number] [address] [place] [id number] [facility] [address]Medical Director : Jason Vann MD NPI #:Lab Di shireen : 03/11/20.1550.XMT.SENT REF 03/12/20.1209.XMT.SENT REF 03/12/20.1209. .to KAMRYN LEYDA via fax ID Date Data Source [id number] 02/21/2020 12:57:06 PM EST [facility] ([facility]) Name Value Range Interpretation Code Description Data Libia rce(s) Supporting Document(s) NegativeLot: [id number]: 05/26/2020 High Sensitivity Urine Test [facility] ([facility]) ID Date Data Source [id number] 02/18/2020 02:15:00 AM EST [facility] 1 OrderSheet [facility] Emergency Department [address] [place] [address] Phone #: ext- [phone] 02/18/2020 02:03 [id number] Sex: F : 2000 Age: 19yWEIGHT:60.5 kg (S) HEIGHT:64 inches (S) BMI:22.9ALLERGIES: No Known Drug AllergyCHIEF COMPLAINT: chest painDIAGNOSIS: Chest wall painLAB ORDERSOrder Description Priority Entered Acknowledged InitialedCBC w Diff STAT 02:27 02/18/2020 02:28 Salvador Garcia Norma MD; Beat[facility] HeartCMP STAT 02:02/18/2020 02:28 Salvador Garcia Norma MD; [facility] HeartHCG Serum Qual STAT 02:02/18/2020 02:28 Salvador Garcia Norma MD; [facility] HeartDIAGNOSTIC STUDY ORDERSOrder Description Priority Entered Acknowledged InitialedChest Portable 1 STAT 02:27 02/18/2020 02:28 Felipe Garcia Norma MD; [facility](Oxygen?(No)) Reason for Study: Chest PainMEDICATION/IV/DRIP/FLUID ORDERSOrder Description Priority Entered Acknowledged InitialedGENERAL ORDERSOrder Description Priority Entered Acknowledged InitialedEKG 02:28 02/18/2020 02:28 Salvador Garcia Norma MD; [facility][Electronically signed by Beatriz Garcia R.N. (04:15 02/18/2020)][Electronically signed by Maira Sauceda MD (06:57 02/18/2020)][Electronically locked by Beatriz Garcia R.N. (04:15 02/18/2020)] Name Value Range Interpretation Code Description Data Libia rce(s) Supporting Document(s) ID Date Data Source [id number] 02/18/2020 02:15:00 AM EST [facility] 1 Medication Reconciliation Report [facility] Emergency Department [address] [place] [address] Phone #: ext- [phone] 02/18/2020 02:03 Patient: Shelli SHAW Sex: F : 2000 Age: 19yWeight: 60.5 kgHeight/Length: 64 in.BMI: 22.9ALLERGIES: No Known Drug AllergyThe patient's Home Medications are listed below:NONE.The source(s) of the original Home Medication information:Not obtained.The following Medications were given to the patient in the Emergency Department:None.The following Medications were prescribed to the patient:None. Name Value Range Interpretation Code Description Data Libia [facility](s) Supporting Document(s) ID Date Data Source [id number] 02/18/2020 02:15:00 AM [place] [address] Medication Administration Record [facility] Emergency Department [address] [place] [address] Phone #: ext [phone] 02/18/2020 02:03 Patient: Shelli SHAW Sex: F : 2000 Age: 19yWeight: 60.5 kgHeight/Length: 64 inBMI: 22.9ALLERGIES: No Known Drug AllergyDate/Time Medication Administered Medication Ordered Name Value Range Interpretation Code Description Data Libia rce(s) Supporting Document(s) ID Date Data Source [id number] 02/18/2020 02:15:00 AM [facility] 1 General Instructions [facility] Emergency Department [address] [place] [address] Phone #: ext- [phone] 02/18/2020 02:03 Patient: Shelli SHAW Sex: F : 2000 Age: 19yChest wall painINSTRUCTIONS(Follow up with your primary care physician. return if worse or any new symptoms. Take tylenol andmotrin for pain or discomfort. Discuss with your doctor your concerns about not knowning the medicalhistory of your biological parents and your worries.).Your Current Medications: .No home medication.Follow-up:Follow up with your doctor Wednesday even if well. Call for an appointment. Reason for referral: evaluation.Summary of care provided to patient via paper.Understanding of the discharge instructions verbalized by patient. ADDITIONAL INFORMATIONChest Wall Pain: Costochondritis 2 General Instructions [facility] Emergency Department [address] [place] [address] Phone #: ext- [phone] 02/18/2020 02:03 Patient: Shelli SHAW Sex: F : 2000 Age: 19yThe chest pain that you have had today is caused by costochondritis. This condition is caused by aninflammation of the cartilage joining your ribs to your breastbone. It is not caused by heart or lungproblems. Your healthcare team has made sure that the chest pain you feel is not from a lifethreatening cause of chest pain such as heart attack, collapsed lung, blood clot in the lung, tear in theaorta, or esophageal rupture. The inflammation may have been brought on by a blow to the chest,lifting heavy objects, intense exercise, or an illness that made you cough and sneeze a lot. It oftenoccurs during times of emotional stress. It can be painful, but it is not dangerous. It usually goes awayin 1 to 2 weeks. But it may happen again. Rarely, a more serious condition may cause symptomssimilar to costochondritis. That's why it's important to watch for the warning signs listed below.Home careFollow these guidelines when caring for you rself at home: If you feel that emotional stress is a cause of your condition, try to figure out the sources of that stress. It may not be obvious. Learn ways to deal with the stress in your life. This can include regular exercise, muscle relaxation, meditation, or simply taking time out for yourself. You may use acetaminophen, ibuprofen, or naproxen to control pain, unless another pain medicine was prescribed. If you have liver or kidney disease or ever had a stomach ulcer, talk with your healthcare provider before using these medicines. You can also help ease pain by using a hot, wet compress or heating pad. Use this with or without a medicated skin cream that helps relieves pain. Do stretching exercise as advised by your provider. Take any prescribed medicines as directed. 3 General Instructions [facility] Emergency Department [address] [place] [address] Phone #: ext- [phone] 02/18/2020 02:03 --- Patient: Shelli SHAW Sex: F : 2000 Age: 19yFollow-up careFollow up with your healthcare provider, or as advised, if you do not start to get better in the next 2days.When to seek medical adviceCall your healthcare provider right away if any of these occur: A change in the type of pain. Call if it feels different, becomes more serious, lasts longer, or spreads into your shoulder, arm, neck, jaw, or back. Shortness of breath or pain gets worse when you breathe Weakness, dizziness, or fainting Cough with dark-colored sputum (phlegm) or blood Abdominal pain Dark red or black stools Fever of 100.4F (38C) or higher, or as directed by your healthcare provider [id number] [employer]. [address] [place], [place] [address]. All rights reserved. This information is not intended as asubstitute for professional medical care. Always follow your healthcare professional's instructions. You have been given the following additional information: Chest Wall Pain, Costochondritis(Electronically signed by Maira Sauceda MD 02/18/2020 06:57) Name Value Range Interpretation Code Description Data Libia rce(s) Supporting Document(s) ID Date Data Source [id number] 02/18/2020 02:15:00 AM EST [facility] 1 Clinical Report - Nurses [facility] Emergency Department [address] [place] [address] Phone #: ext- [phone] 02/18/2020 02:03 Patient: Shelli SHAW Sex: F : 2000 Age: 19yTRIAGEArrived by private vehicle. Historian: patient. Accompanied by friend.Acuity: LEVEL 3.Chief Complaint: CHEST PAIN.Alert. No acute distress.This started just prior to arrival. 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 Pt states pain radiates down into her stomach.Pt denies nausea. Pt denies sob but states pain worsens with inspiration. Pt states she has felt this in thepast and has been to the ER before and they dx her with "nothing". Pt states she is starting to feelanxious.).Treatment MANIFEST/ORDER ORGANIZER PRINT ORDERS:None. --02:10 02/18/20 Beatriz Garcia RChiaraN.02:04 02/18/20. BP: 132/87. MAP: 102. HR: 69. RR: 17. O2 saturation: 99% on room air. Temp: 97.7 F(oral). Pain level now: 10/05. --02:10 02/18/20 Beatriz Garcia R.N.Weight: 60.5 kg stated. Height/Length: 64 inches Per Patient. BMI: 22.9. --02:02/18/20 Beatriz Garcia R.N.MedicationsNone. --02:02/18/20 Beatriz Garcia R.N.AllergiesNo Known Drug Allergy. --02:02/18/20 Beatriz Garcia R.N.HistoryPAST MEDICAL HX: Immunizations: up-to-date. Last normal menstrual period now.SOCIAL HX: Light tobacco smoker (cigarette)- less than 1/2 a pack per day. No alcohol use or drug use.The patient was offered HIV testing but d eclined. Patient education was provided. The patient was offeredhepatitis C testing but declined. Patient education was provided. ( COVID screen negative). The patienthas not traveled outside the [place]Infectious disease exposure: No infectious disease exposure. Patient is not a known carrier of tuberculosis,hepatitis, HIV, MRSA or VRE. Patient is not a known carrier of CRE.SELF HARM ASSESSMENT: Self harm assessment was performed. The patient answered "no" to thequestion(s) "Have you recently felt down, depressed, or hopeless?", "Do you have thoughts of harming orkilling yourself?", "Do you have a plan for harming or killing yourself?" and "Have you recently had thoughtsabout harming or killing others?". 2 Clinical Report - Nurses [facility] Emergency Department [address] [place] [address] Phone #: ext- [phone] 02/18/2020 02:03 Patient: Shelli SHAW Sex: F : 2000 Age: 19y ABUSE ASSESSMENT: Abuse assessment. The patient had positive responses to the question(s) "Do you feel safe in your home?", "Are you afraid to go home?" and "Has anyone hurt you or threatened to hurt you?". Abuse denied. NUTRITIONAL RISK ASSESSMENT: The nutritional risk assessment revealed no deficiencies. FUNCTIONAL ASSESSMENT: Functional assessment: no impairments noted. LEARNING NEEDS ASSESSMENT: The learning needs assessment revealed no barriers. FALL RISK ASSESSMENT: Fall risk assessment completed. No risk factors identified. SKIN INTEGRITY ASSESSMENT: Skin integrity risk assessment completed. No skin integrity risk identified. --02:10 02/18/20 Beatriz Garcia R.N. Interventions Identification band on patient. To treatment room. --02:02/18/20 Beatriz Garcia R.N.PHYSICAL ASSESSMENTAmbulatory to room. Patient gowned.GENERAL / NEURO / PSYCH: Alert. Oriented X 4. Appears in no acute distress. Appears anxious.HEENT: Mucous membranes are pink.RESPIRATORY: Respirations not labored. Chest nontender. Breath sounds within normal limits.CVS: Normal sinus rhythm noted. Cardiac rhythm: normal sinus rhythm. Heart sounds within normallimits. Pulses within normal limits. ( Pt reports left sided sharp constant pain). Capillary refill less than 2seconds.GI / : Abdomen soft and nontender.EXTREMITIES: No lower extremity edema.SKIN: Skin is warm and dry. Normal skin turgor. Skin is non-tender. --02:02/18/20 Beatriz Garcia R.N.NURSING PROGRESS NOTESMonitoring of patient in place. Patient gowned. Reassurance given. Two patient identifiers checked.Call light placed in reach. Side rails up x 2. Bed placed in lowest position. Brakes of bed on. --02: Beatriz Garcia R.N. EKG time: (late entry - 02:16 02/18/2020). EKG was performed by a nurse and shown to the ED physician. --02:17 02/18/20 Beatriz Garcia R.N. 03:14 02/18/20. BP: 124/85. MAP: 98. HR: 71. RR: 16. O2 saturation: 100% on room air. Temp: deferred. Pain level now: 3/10. --03:15 02/18/20 Beatriz Garcia R.N. The patient is calm and resting quietly. --03:15 02/18/20 Beatriz Garcia R.N. 3 Clinical Report - Nurses [facility] Emergency Department [address] [place] [address] Phone #: ext- [phone] 02/18/2020 02:03 Patient: Shelli SHAW Sex: F : 2000 Age: 19y 02:10 02/18/2020 Site #1 started via IV in the left antecubital space with an 20g angiocath, with aseptic technique; one attempt. Blood drawn: rainbow set. Sent to the lab. Saline lock flushed with 10 mL saline. --03:16 02/18/20 Beatriz Garcia R.N.DISPOSITION / DISCHARGE 04:13 02/18/2020 Site #1 removed upon discharge. Bandaid applied. --04:14 02/18/20 Beatriz Garcia R.N. No learning barriers present. Discharge instructions provided and reviewed with the patient. Reviewed warnings. Reviewed medication(s). Treatments reviewed. Reviewed referrals. Patient verbalized understanding. Written instructions provided in [place]. The patient was discharged home and accompanied by family. She left ambulatory and via private vehicle. Family member driving. --04:14 02/18/20 Beatriz Garcia R.N. 04:13 02/18/20. BP: 126/93. MAP: 104. HR: 72. RR: 17. O2 saturation: 100% on room air. Temp: 97.9 F. Pain level now: 0/10. --04:14 02/18/20 Beatriz Garcia R.N.Locked/Released at 02/18/2020 04:15 by Beatriz Garcia R.N. Name Value Range Interpretation Code Description Data Libia rce(s) Supporting Document(s) ID Date Data Source [id number] 02/18/2020 02:15:00 AM EST [facility] 1 Clinical Report - Physicians/Mid Levels [facility] Emergency Department [address] [place] [address] Phone #: ext- [phone] 02/18/2020 02:03 Patient: Shelli SHAW Sex: F : 2000 Age: 19y Arrived- By private vehicle. Historian- patient. Disposition decision: 03:51 02/18/2020.HISTORY OF PRESENT ILLNESS Chief Complaint: CHEST PAIN. This started just prior to arrival and is now gone. It is described as sharp and it is described as located in the central chest area and radiating to the epigastrum. At its maximum, severity described as moderate. When seen in the E.D., it was gone. (This started just prior to arrival. 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 Pt states pain radiates down into her stomach. Pt denies nausea. Pt denies sob but states pain worsens with inspiration. Pt states she has felt this in the past and has been to the ER before and they dx her with "nothing". Pt states she is starting to feel anxious.).). Similar symptoms previously. Recent medical care: Not recently seen/assessed.REVIEW OF SYSTEMSNo fever, chills, cough or pedal edema or edema. No calf pain, fainting episodes, headache or sore throator throat. No blurred vision, abdominal pain or pain or black stools. No difficulty with urination orurination, skin rash or rash or bloody stools. No chills, fever, double vision, ear pain or nasal congestion.No cough, difficulty breathing, palpitations, diarrhea or nausea. No vomiting, urinary frequency,hematuria, back pain or joint pain. No headache, seizure or easy bruising. The patient has had chestpain.PAST HISTORYSee nurses notes. Medications: None. Allergies: No Known Drug Allergy.SOCIAL HISTORYNo drug use.ADDITIONAL NOTESThe nursing notes have been reviewed.PHYSICAL EXAMVital Signs: 02/18/2020 03:14 BP: 124/85. MAP: 98. HR: 71. RR: 16. O2 saturation: 100% on room air.Pain level now: 06/05. 2 Clinical Report - Physicians/Mid Levels [facility] Emergency Department [address] [place] [address] Phone #: ext- [phone] 02/18/2020 02:03 Patient: Shelli SHAW Sex: F : 2000 Age: 19y104/19/2019 02:04 BP: 132/87. MAP: 102. HR: 69. RR: 17. O2 saturation: 99% on room air. Temp: 97.7 F.Pain level now: 10/05. Have been reviewed and appear to be correct. Blood pressure normal. Meanarterial pressure- normal. Heart rate normal. Respiratory rate normal. Temperature normal. Oxygensaturation normal.Appearance: Alert. Oriented X3. No acute distress.Eyes: Pupils equal, round and reactive to light. Eyes normal inspection.ENT: Ears normal. Nose normal. Pharynx normal.Neck: Normal inspection. Neck supple.CVS: Normal heart rate and rhythm. Heart sounds normal. Pulses normal.Respiratory: No respiratory distress. Breath sounds normal. Chest nontender.Abdomen: Soft and nontender. Bowel sounds normal.Back: Normal external inspection. No CVA tenderness.Skin: Skin warm and dry. Normal skin color. No rash. Normal skin turgor.Extremities: Extremities exhibit normal ROM. No lower extremity edema.Neuro: Oriented X 3. No motor deficit. No sensory deficit.LABS, X-RAYS, AND EKGLaboratory Tests:CBC w Diff: (SARAHI: 02/18/2020 02:20) ( MsgRcvd 02/18/2020 02:45) Final results Test Result Flag Units (Reference) CBC W/AUTOMATED DIFF COMPLETE BLOOD COUNT WBC 6.5 10/uL (4.2 - 11.0) RBC 4.68 10/uL (4.20 - 5.40) HEMOGLOBIN 13.6 g/dL (12.0 - 16.0) HEMATOCRIT 40.3 % (37.0 - 47.0) MCV 86.1 fL (81.0 - 101) MCH 29.1 pg (27.0 - 34.0) MCHC 33.7 g/dL (31.0 - 36.0) RDW 14.0 % (11.5 - 14.5) PLATELETS 277 10/uL (150 - 450) MPV 9.4 fL (7.4 - 10.4) NEUT 53.2 % (37.0 - 80.0) LYMPH 35.8 % (25.0 - 40.0) MONO 6.6 % (3.0 - 8.0) EOS 3.5 % (0.0 - 7.0) BASO 0.6 % (0.0 - 2.5) %IG 0.3 H % (0.0 - 0.0) %NRBC 0.0 % (0.0 - 0.0) #NEUT 3.48 10/uL (2.00 - 6.90) #LYMPH 2.34 10/uL (0.60 - 3.40) #MONO 0.43 10/uL (0.00 - 0.90) #EOS 0.23 10/uL (0.00 - 0.70) #BASO 0.04 10/uL (0.00 - 0.20) #IG 0.02 10/uL (0.00 - 0.10) #NRBC 0.00 10/uL (0.00 - 0.00) MANUAL DIFF NOT INDICATED RBC MORPH NOT INDICATEDCMP: (SARAHI: 02/18/2020 02:20) ( MsgRcvd 02/18/2020 02:56) Final results Test Result Flag Units (Reference) COMPREHENSIVE METABOLIC PANEL 3 Clinical Report - Physicians/Mid Levels [facility] Emergency Department [address] [place] [address] Phone #: ext- [phone] 02/18/2020 02:03 Patient: Shelli SHAW Sex: F : 2000 Age: 19y COMPREHENSIVE METABOLIC PANEL SODIUM 138 mEq/L (134 - 153) POTASSIUM 3.8 mEq/L (3.6 - 5.0) CHLORIDE 103 mEq/L (98 - 107) CO2 27 MEQ/L (22 - 30) GLUCOSE 100 MG/DL (65 - 110) BUN 10 MG/DL (7 - 21) CREATININE 0.6 L MG/DL (0.7 - 1.5) BUN/CREAT 17 (8 - 27) TOTAL PROTEIN 7.4 G/DL (6.3 - 8.2) ALBUMIN 4.7 G/DL (3.9 - 5.0) GLOBULIN 2.7 GM/DL (2.4 - 3.2) A/G RATIO 1.7 (0.8 - 2.0) CALCIUM 9.8 MG/DL (8.4 - 10.2) TOTAL BILI <0.7 MG/DL (0.2 - 1.3) ALKALINE PHOS 74 U/L (38 - 126) SGOT/AST 12 U/L (5 - 40) SGPT/ALT 11 U/L (7 - 56) ANION GAP 8.0 mmol/L (8.0 - 16.0) AGE 19 yrs NON-AA GFR >60 mL/min AFR AMER GFR >60 mL/min Male GFR Interprentation 20-49 yrs >60 mL/min Dcnjtq26-99 yrs >56 mL/min Normal 60-69 yrs >49 mL/min Normal 70-79yrs>42 mL/min Normal 80 and above >35 mL/min Normal Female GFRInterpretation 20-39 yrs >60 mL/min Normal 40-49 yrs >58 mL/minNormal 50-59 yrs >51 mL/min Normal 60-69 yrs >45 mL/min Nvhyvf92-59 yrs >39 mL/min Normal 80 and above >32 mL/min NormalBeta-HCG, Qual Serum: (SARAHI: 02/18/2020 02:20) ( MsgRcvd 02/18/2020 02:45) Final results Test Result Flag Units (Reference) HCG SERUM QUAL NEGATIVE (NORMAL: NEGAT HCG SERUM QL REENTER NEGATIVE (NORMAL: NEGAT { KIT LOT # [id number] ){ KIT EXP DATE01/01/21 ){ PROCEDURAL CONTROL VALID)Chest Portable 1 View: (SARAHI: 02/18/2020 02:35) ( MsgRcvd 02/18/2020 03:05) Final results [place] [address] ---------NAME--------- NUMBER SEX AGE ADMIT DISC. XRAY# F/C TYPE COLIN DECKER [id number] 02/18/20970277 NA E/R DATE OF : 2000 M/R# [id number] #: [id number] TR-06 LOCATION: EMERGENCY DEPT TRANSCRIBED: 02/18/20 3:04 IF CHEST PORTABLE [id number] COMPLETED:02/18/20 3:04 [id number] [id number] Reason(s): Chest Pain PHYSICIAN: ATIYA R A D I O L O G Y R E P O R T PATIENT HISTORY: 4 Clinical Report - Physicians/Mid Levels [facility] Emergency Department [address] [place] [address] Phone #: ext- [phone] 02/18/2020 02:03 Patient: Shelli SHAW Sex: Doug : 2000 Age: 19y Chest Pain Patient has negative beta. Patient shielded. Ve rification of 2 patient identifiers performed. kje EXAM: CR Chest, 1 View. CLINICAL HISTORY:Chest Pain Patient has negative beta. Patient shielded. Verification of 2 patient identifiers performed. kje COMPARISON:None provided. FINDINGS: LUNGS: The lungs show no infiltrate or other acute finding. PLEURAL SPACES: No evidence of pleural effusion or pneumothorax. MEDIASTINUM: Cardiac size and mediastinal contours within normal limits. BONES: No aggressive appearing osseous lesion seen. IMPRESSION: No acute cardiopulmonary pathology is evid ent. Electronically Signed By: Chadd Noriega MD , Radiologist Date/Time: 02/18/20 03:04.PROGRESS AND PROCEDURESCourse of Care: pt presents to the ED for evaluation of her chest pain. she states she has had this manytimes in the past several weeks. She states she has been to several EDs for this. today, she states it isthe same type of pain she has been having. EKG showed no acute findings. cxr unremarkable. labswere grossly nl. I discussed with pt the fact that she should talk to her doctor about her fears since shedoes not know her biological parents. she worries about heart attacks. pt denies any recent or increasedstress.will. I discharge pt comfortable with the plan. Patient/family counseled. Disposition: Discharged. Condition: good and stable.CLINICAL IMPRESSION Chest wall painINSTRUCTIONS 5 Clinical Report - Physicians/Mid Levels [facility] Emergency Department [address] [place] [address] Phone #: ext- [phone] 02/18/2020 02:03 Patient: Shelli SHAW Sex: F : 2000 Age: 19y (Follow up with your primary care physician. return if worse or any new symptoms. Take tylenol and motrin for pain or discomfort. Discuss with your doctor your concerns about not knowning the medical history of your biological parents and your worries.). Your Current Medications: . No home medication. Follow-up: Follow up with your doctor Wednesday even if well. Call for an appointment. Reason for referral: evaluation. Summary of care provided to patient via paper. Understanding of the discharge instructions verbalized by patient.(Electronically signed by Maira Sauceda MD 02/18/2020 06:57) Name Value Range Interpretation Code Description Data Libia rce(s) Supporting Document(s) ID Date Data Source [id number] 02/18/2020 03:04:[address] [facility] [address] [place] [address] ---------NAME--------- NUMBER SEX AGE ADMIT DISC. XRAY# F/C TYPE COLIN DECKER [id number] F 02/18/20 161994 NA E/R DATE OF : 2000 M/R# [id number] #: [id number] TR-06 LOCATION: EMERGENCY DEPT TRANSCRIBED: 02/18/20 3:04 IF CHEST PORTABLE [id number] COMPLETED:02/18/20 3:04 KJE [id number] Reason(s): Chest Pain PHYSICIAN: ATIYA R A D I O L O G Y R E P O R T PATIENT HISTORY:Chest PainPatient has negative beta. Patient shielded. Verification of 2 patientidentifiers performed.kjeEXAM: CR Chest, 1 View.CLINICAL HISTORY:Chest Pain Patient has negative beta. Patient sh ielded.Verification of 2 patient identifiers performed. kjeCOMPARISON:None provided.FINDINGS:LUNGS: The lungs show no infiltrate or other acute finding.PLEURAL SPACES: No evidence of pleural effusion or pneumothorax.MEDIASTINUM: Cardiac size and mediastinal contours within normal limits.BONES: No aggressive appearing osseous lesion seen.IMPRESSION:No acute cardiopulmonary pathology is evident.Electronically Signed By:Chadd Noriega MD , RadiologistDate/Time: 02/18/20 03:04 Name Value Range Interpretation Code Description Data Libia rce(s) Supporting Document(s) ID Date Data Source [id number] 02/18/2020 02:45:00 AM EST [facility] Name Value Range Interpretation Code Description Data Libia rce(s) Supporting Document(s) CBC W/AUTOMATED DIFF [facility] COMPLETE BLOOD COUNT Leukocytes [#/volume] in Blood by Automated count 6.5 10^3/uL 4.2 - 1 1.0 [facility] Erythrocytes [#/volume] in Blood by Automated count 4.68 10^6/uL 4. 20 - 5.40 [facility] Hemoglobin [Mass/volume] in Blood 13.6 g/dL 12.0 - 16.0 [facility] Hematocrit [Volume Fraction] of Blood by Automated count 40.3 % 3 7.0 - 47.0 [facility] Erythrocyte mean corpuscular volume [Entitic volume] by Auto mated count 86.1 fL 81.0 - 101 [facility] Erythrocyte mean corpuscular hemoglobin [Entitic mass] by Automated count 29.1 pg 27.0 - 34.0 [facility] Erythrocyte mean corpuscular hemoglobin concentration [Mass/volume] by Automated count 33.7 g/dL 31.0 - 36.0 [facility] Erythrocyte distribution width [Ratio] by Automated count 14.0 % 11.5 - 14.5 [facility] Platelets [#/volume] in Blood by Automated count 277 10^3/uL 150 - 45 0 [facility] Platelet mean volume [Entitic volume] in Blood by Automated count 9.4 fL 7.4 - 10.4 [facility] Neutrophils/100 leukocytes in Blood by Automated count 53.2 % 37. 0 - 80.0 [facility] Lymphocytes/100 leukocytes in Blood by Manual count 35.8 % 25.0 - 40.0 [facility] Monocytes/100 leukocytes in Blood by Automated count 6.6 % 3.0 - 8.0 [facility] Eosinophils/100 leukocytes in Blood by Automated count 3.5 % 0.0 - 7.0 [facility] Basophils/100 leukocytes in Blood by Automated count 0.6 % 0.0 - 2.5 [facility] %IG 0.3 % 0.0 - 0.0 [facility] %NRBC 0.0 % 0.0 - 0.0 [facility] al Neutrophils [#/volume] in Blood by Automated count 3.48 10^3/uL 2.00 - 6.90 [facility] Lymphocytes [#/volume] in Blood by Automated count 2.34 10^3/uL 0.60 - 3.40 [facility] Monocytes [#/volume] in Blood by Automated count 0.43 10^3/uL 0.00 - 0.90 [facility] Eosinophils [#/volume] in Blood by Automated count 0.23 10^3/uL 0.00 - 0.70 [facility] Basophils [#/volume] in Blood by Automated count 0.04 10^3/uL 0.00 - 0.20 [facility] #IG 0.02 10^3/uL 0.00 - 0.10 [facility] ospital #NRBC 0.00 10^3/uL 0.00 - 0.00 [facility] H ospital MANUAL DIFF NOT INDICATED [facility] RBC MORPH NOT INDICATED [facility] Ho spital ID Date Data Source [id number] 02/18/2020 02:45:00 AM EST [facility] Name Value Range Interpretation Code Description Data Libia rce(s) Supporting Document(s) HCG SERUM QUAL NEGATIVE NORMAL: NEGATIVE [facility] HCG SERUM QL REENTER NEGATIVE NORMAL: NEGATIVE [facility] { KIT LOT # [id number] ){ KIT EXP DATE 01/01/21 ){ PROCEDURAL CONTROL VALID ) ID Date Data Source [id number] 02/18/2020 02:56:00 AM EST [facility] Name Value Range Interpretation Code Description Data Libia rce(s) Supporting Document(s) COMPREHENSIVE METABOLIC PANEL [facility] COMPREHENSIVE METABOLIC PANEL Sodium [Moles/volume] in Serum or Plasma 138 mEq/L 134 - 153 [facility] Potassium [Moles/volume] in Serum or Plasma 3.8 mEq/L 3.6 - 5.0 [facility] Chloride [Moles/volume] in Serum or Plasma 103 mEq/L 98 - 107 [facility] Carbon dioxide, total [Moles/volume] in Serum or Plasma 27 MEQ/L 22 - 30 [facility] Glucose [Mass/volume] in Serum or Plasma 100 MG/DL 65 - 110 [facility] BUN 10 MG/DL 7 - 21 [facility] Creatinine [Mass/volume] in Serum or Plasma 0.6 MG/DL 0.7 - 1.5 L [facility] BUN/CREAT 17 8 - 27 [facility] Protein [Mass/volume] in Serum or Plasma 7.4 G/DL 6.3 - 8.2 [facility] Albumin [Mass/volume] in Serum or Plasma 4.7 G/DL 3.9 - 5.0 [facility] Globulin [Mass/volume] in Serum by calculation 2.7 GM/DL 2.4 - 3.2 [facility] A/G RATIO 1.7 0.8 - 2.0 [facility] Calcium [Mass/volume] in Serum or Plasma 9.8 MG/DL 8.4 - 10.2 [facility] Bilirubin.total [Mass/volume] in Serum or Plasma <0.7 MG/DL 0.2 - 1.3 [facility] Alkaline phosphatase [Enzymatic activity/volume] in Serum or Plasma 74 U/L 38 - 126 [facility] Aspartate aminotransferase [Enzymatic activity/volume] in Serum or Plasma 12 U/L 5 - 40 [facility] Alanine aminotransferase [Enzymatic activity/volume] in Seru m or Plasma 11 U/L 7 - 56 [facility] Anion gap 3 in Serum or Plasma 8.0 mmol/L 8.0 - 16.0 [facility] AGE 19 yrs [facility] NON-AA GFR >60 mL/min [facility] ital AFR AMER GFR >60 mL/min [facility] Ho spital Male GFR In terprentation 20-49 yrs >60 mL/min Normal 50-59 yrs >56 mL/min Normal 60-69 yrs >49 mL/min Normal 70-79yrs >42 mL/min Normal 80 and above >35 mL/min Normal Female GFR Interpretation 20-39 yrs >60 mL/min Normal 40-49 yrs >58 mL/min Normal 50-59 yrs >51 mL/min Normal 60-69 yrs >45 mL/min Normal 70-79 yrs >39 mL/min Normal 80 and above >32 mL/min Normal ID Date Data Source [id number] 02/01/2020 12:10:00 PM EST [place] ([facility]) Name Value Range Interpretation Code Description Data Libia rce(s) Supporting Document(s) white blood count 6.7 10 4.0-10.0 White Blood Count [place] ([facility]) hemoglobin 12.5 g/dL 12.0-15.5 Hemoglobin [place] ([facility]) red blood count 4.43 10 4.00-5.40 Red Blood Count [facility] ([facility]) hematocrit 38.8 % 36.0-47.0 Hematocrit [place] ([facility]) mean corpuscular volume 87.6 fL 80.0-96.0 Mean Corpusc ular Volume [place] ([facility]) mean corpuscular HGB conc 32.2 g/dL 32.0-36.5 Mean Corpu scular HGB Conc [place] ([facility]) mean corpuscular hemoglobin 28.2 pg 27.0-33.0 Mean Cor puscular Hemoglobin [place] ([facility]) red cell distribution width 13.5 % 11.5-14.5 Red Cell Distribution Width [place] ([facility]) platelet count, automated 271 10 150-450 Platelet C ount, Automated [place] ([facility]) neutrophils % 61.5 % 36.0-66.0 Neutrophils % [place] ( [facility]) lymph % 28.9 % 24.0-44.0 Lymph % [place] ([facility]) mono % 5.8 % 0.0-5.0 Above high normal [place] % [place] ([facility]) eos % 2.8 % 0.0-3.0 Eos % [place] ([facility]) baso % 0.6 % 0.0-1.0 Baso % [place] ([facility]) nucleated red blood cell % 0.0 % 0-0 Nucleated Red Blood Cell % [place] ([facility]) immature granulocyte % 0.4 % 0-3.0 Immature Gran ulocyte % [place] ([facility]) mono # 0.4 10 0.0-0.8 [place] # [place] ([facility]) neutrophils # 4.1 10 1.5-8.5 Neutrophils # [place] ( [facility]) lymph # 1.9 10 1.5-5.0 Lymph # [place] ([facility]) eos # 0.2 10 0.0-0.5 Eos # [place] ([facility]) baso # 0.0 10 0.0-0.2 Baso # [place] ([facility]) ID Date Data Source [id number] 02/01/2020 12:10:00 PM EST [place] ([facility]) Name Value Range Interpretation Code Description Data Libia rce(s) Supporting Document(s) HCG, serum quantitative < 1.0 HCG, Serum Q uantitative [place] ([facility]) ID Date Data Source [id number] 02/01/2020 12:10:00 PM EST [place] ([facility]) Name Value Range Interpretation Code Description Data Libia rce(s) Supporting Document(s) thyroid stimulating hormone 2.300 uIU/mL 0.463-3.98 Thyroid Stimulating Hormone [place] ([facility]) ID Date Data Source [id number] 02/01/2020 12:10:00 PM EST [place] ([facility]) Name Value Range Interpretation Code Description Data Libia rce(s) Supporting Document(s) glucose, fasting 85 mg/dL 70-100 Glucose, Fasting AT [facility] ([facility]) blood urea nitrogen 10 mg/dL 7-18 Blood Urea Nitro gen [place] ([facility]) creatinine for GFR 0.76 mg/dL 0.55-1.30 Creatinine for GF R [place] ([facility]) sodium level 141 mEq/L 136-145 Sodium Level [place] (No [facility]) potassium serum 4.1 mEq/L 3.5-5.1 Potassium Serum [facility] ([facility]) carbon dioxide level 28 mEq/L 21-32 Carbon Dioxide Level [place] ([facility]) chloride level 107 mEq/L 98-107 Chloride Level [place] ([facility]) calcium level 9.7 mg/dL 8.5-10.1 Calcium Level [place] ( [facility]) anion gap 6 mEq/L 8-16 Below low normal Anion Gap [place] ( [facility]) ALT/SGPT 13 U/L 12-78 ALT/SGPT [place] ([facility]) AST/SGOT 4 U/L 7-37 Below low normal AST/SGOT [place] ( [facility]) bilirubin,total 0.5 mg/dL 0.2-1.0 Bilirubin,total [facility] ([facility]) alkaline phosphatase 73 U/L 45-117 Alkaline Phosph atase [place] ([facility]) total protein 7.1 gm/dL 6.4-8.2 Total Protein [place] ( [facility]) albumin 3.9 gm/dL 3.2-5.2 Albumin [place] ([facility]) albumin/globulin ratio 1.2-2.2 Albumin/globu dyana Ratio [place] ([facility]) ID Date Data Source [id number] 02/01/2020 12:10:00 PM EST [place] ([facility]) Name Value Range Interpretation Code Description Data Libia e(s) Supporting Document(s) white blood count 6.7 10 4.0-10.0 White Blood Count [place] ([facility]) red blood count 4.43 10 4.00-5.40 Red Blood Count [place] [place] ([facility]) hemoglobin 12.5 g/dL 12.0-15.5 Hemoglobin [place] ([facility]) mean corpuscular volume 87.6 fL 80.0-96.0 Mean Corpusc ular Volume [place] ([facility]) hematocrit 38.8 % 36.0-47.0 Hematocrit [place] ([facility]) mean corpuscular hemoglobin 28.2 pg 27.0-33.0 Mean Cor puscular Hemoglobin [place] ([facility]) mean corpuscular HGB conc 32.2 g/dL 32.0-36.5 Mean Corpu scular HGB Conc [place] ([facility]) platelet count, automated 271 10 150-450 Platelet C ount, Automated [place] ([facility]) neutrophils % 61.5 % 36.0-66.0 Neutrophils % [place] ( [facility]) red cell distribution width 13.5 % 11.5-14.5 Red Cell Distribution Width [place] ([facility]) mono % 5.8 % 0.0-5.0 Above high normal [place] % [place] ([facility]) baso % 0.6 % 0.0-1.0 Baso % [place] ([facility]) eos % 2.8 % 0.0-3.0 Eos % [place] ([facility]) lymph % 28.9 % 24.0-44.0 Lymph % [place] ([facility]) lymph # 1.9 10 1.5-5.0 Lymph # [place] ([facility]) immature granulocyte % 0.4 % 0-3.0 Immature Gran ulocyte % [place] ([facility]) nucleated red blood cell % 0.0 % 0-0 Nucleated Red Blood Cell % [place] ([facility]) neutrophils # 4.1 10 1.5-8.5 Neutrophils # [place] ( [facility]) baso # 0.0 10 0.0-0.2 Baso # [place] ([facility]) mono # 0.4 10 0.0-0.8 [place] # [place] ([facility]) eos # 0.2 10 0.0-0.5 Eos # [place] ([facility]) ID Date Data Source [id number] 02/01/2020 12:10:00 PM EST [place] ([facility]) Name Value Range Interpretation Code Description Data Libia rce(s) Supporting Document(s) HCG, serum quantitative < 1.0 HCG, Serum Q uantitative [place] ([facility]) ID Date Data Source [id number] 02/01/2020 12:10:00 PM EST [place] ([facility]) Name Value Range Interpretation Code Description Data Libia rce(s) Supporting Document(s) thyroid stimulating hormone 2.300 uIU/mL 0.463-3.98 Thyroid Stimulating Hormone [place] ([facility]) ID Date Data Source [id number] 02/01/2020 12:10:00 PM EST [place] ([facility]) Name Value Range Interpretation Code Description Data Libia rce(s) Supporting Document(s) glucose, fasting 85 mg/dL 70-100 Glucose, Fasting AT [facility] ([facility]) blood urea nitrogen 10 mg/dL 7-18 Blood Urea Nitro gen [place] ([facility]) creatinine for GFR 0.76 mg/dL 0.55-1.30 Creatinine for GF R [place] ([facility]) potassium serum 4.1 mEq/L 3.5-5.1 Potassium Serum [place] ([facility]) sodium level 141 mEq/L 136-145 Sodium Level [place] ([facility]) anion gap 6 mEq/L 8-16 Below low normal Anion Gap [place] ( [facility]) chloride level 107 mEq/L 98-107 Chloride Level [place] ([facility]) carbon dioxide level 28 mEq/L 21-32 Carbon Dioxide Level [place] ([facility]) AST/SGOT 4 U/L 7-37 Below low normal AST/SGOT [place] ( [facility]) calcium level 9.7 mg/dL 8.5-10.1 Calcium Level [place] ( [facility]) ALT/SGPT 13 U/L 12-78 ALT/SGPT [place] ([facility]) alkaline phosphatase 73 U/L 45-117 Alkaline Phosph atase [place] ([facility]) albumin 3.9 gm/dL 3.2-5.2 Albumin [place] ([facility]) bilirubin,total 0.5 mg/dL 0.2-1.0 Bilirubin,total [place] [place] ([facility]) total protein 7.1 gm/dL 6.4-8.2 Total Protein [place] ( [facility]) albumin/globulin ratio 1.2-2.2 Albumin/globu dyana Ratio [place] ([facility]) ID Date Data Source [id number] 02/01/2020 12:10:00 PM EST [place] ([facility]) Name Value Range Interpretation Code Description Data Libia rce(s) Supporting Document(s) white blood count 6.7 10 4.0-10.0 White Blood Count [place] ([facility]) mean corpuscular volume 87.6 fL 80.0-96.0 Mean Corpusc ular Volume [place] ([facility]) hematocrit 38.8 % 36.0-47.0 Hematocrit [place] ([facility]) red blood count 4.43 10 4.00-5.40 Red Blood Count [place] [place] ([facility]) hemoglobin 12.5 g/dL 12.0-15.5 Hemoglobin [place] ([facility]) mean corpuscular hemoglobin 28.2 pg 27.0-33.0 Mean Cor puscular Hemoglobin [place] ([facility]) platelet count, automated 271 10 150-450 Platelet C ount, Automated [place] ([facility]) mean corpuscular HGB conc 32.2 g/dL 32.0-36.5 Mean Corpu scular HGB Conc [place] ([facility]) red cell distribution width 13.5 % 11.5-14.5 Red Cell Distribution Width [place] ([facility]) lymph % 28.9 % 24.0-44.0 Lymph % [place] ([facility]) mono % 5.8 % 0.0-5.0 Above high normal [place] % [place] ([facility]) eos % 2.8 % 0.0-3.0 Eos % [place] ([facility]) neutrophils % 61.5 % 36.0-66.0 Neutrophils % [place] ( [facility]) baso % 0.6 % 0.0-1.0 Baso % [place] ([facility]) neutrophils # 4.1 10 1.5-8.5 Neutrophils # [place] ( [facility]) nucleated red blood cell % 0.0 % 0-0 Nucleated Red Blood Cell % [place] ([facility]) immature granulocyte % 0.4 % 0-3.0 Immature Gran ulocyte % [place] ([facility]) mono # 0.4 10 0.0-0.8 [place] # [place] ([facility]) eos # 0.2 10 0.0-0.5 Eos # [place] ([facility]) baso # 0.0 10 0.0-0.2 Baso # [place] ([facility]) lymph # 1.9 10 1.5-5.0 Lymph # [place] ([facility]) ID Date Data Source [id number] 02/01/2020 12:10:00 PM EST [place] ([facility]) Name Value Range Interpretation Code Description Data Libia rce(s) Supporting Document(s) HCG, serum quantitative < 1.0 HCG, Serum Q uantitative [place] ([facility]) ID Date Data Source [id number] 02/01/2020 12:10:00 PM EST [place] ([facility]) Name Value Range Interpretation Code Description Data Libia rce(s) Supporting Document(s) thyroid stimulating hormone 2.300 uIU/mL 0.463-3.98 Thyroid Stimulating Hormone [place] ([facility]) ID Date Data Source [id number] 02/01/2020 12:10:00 PM EST [place] ([facility]) Name Value Range Interpretation Code Description Data Libia rce(s) Supporting Document(s) glucose, fasting 85 mg/dL 70-100 Glucose, Fasting AT [facility] ([facility]) blood urea nitrogen 10 mg/dL 7-18 Blood Urea Nitro gen [place] ([facility]) sodium level 141 mEq/L 136-145 Sodium Level [place] (No [facility]) creatinine for GFR 0.76 mg/dL 0.55-1.30 Creatinine for GF R [place] ([facility]) carbon dioxide level 28 mEq/L 21-32 Carbon Dioxide Level [place] ([facility]) potassium serum 4.1 mEq/L 3.5-5.1 Potassium Serum [place] ([facility]) chloride level 107 mEq/L 98-107 Chloride Level [place] ([facility]) AST/SGOT 4 U/L 7-37 Below low normal AST/SGOT [place] ( [facility]) ALT/SGPT 13 U/L 12-78 ALT/SGPT [place] ([facility]) anion gap 6 mEq/L 8-16 Below low normal Anion Gap [place] ( [facility]) calcium level 9.7 mg/dL 8.5-10.1 Calcium Level [place] ( [facility]) total protein 7.1 gm/dL 6.4-8.2 Total Protein [place] ( [facility]) bilirubin,total 0.5 mg/dL 0.2-1.0 Bilirubin,total [place] ([facility]) alkaline phosphatase 73 U/L 45-117 Alkaline Phosph atase [place] ([facility]) albumin 3.9 gm/dL 3.2-5.2 Albumin [place] ([facility]) albumin/globulin ratio 1.2-2.2 Albumin/globu dyana Ratio [place] ([facility]) ID Date Data Source [id number] 02/01/2020 12:10:00 PM EST [place] ([facility]) Name Value Range Interpretation Code Description Data Libia rce(s) Supporting Document(s) red blood count 4.43 10 4.00-5.40 Red Blood Count [place] [place] ([facility]) white blood count 6.7 10 4.0-10.0 White Blood Count [place] ([facility]) mean corpuscular volume 87.6 fL 80.0-96.0 Mean Corpusc ular Volume [place] ([facility]) hematocrit 38.8 % 36.0-47.0 Hematocrit [place] ([facility]) hemoglobin 12.5 g/dL 12.0-15.5 Hemoglobin [place] ([facility]) mean corpuscular HGB conc 32.2 g/dL 32.0-36.5 Mean Corpu scular HGB Conc [place] ([facility]) mean corpuscular hemoglobin 28.2 pg 27.0-33.0 Mean Cor puscular Hemoglobin [place] ([facility]) red cell distribution width 13.5 % 11.5-14.5 Red Cell Distribution Width [place] ([facility]) lymph % 28.9 % 24.0-44.0 Lymph % [place] ([facility]) platelet count, automated 271 10 150-450 Platelet C ount, Automated [place] ([facility]) mono % 5.8 % 0.0-5.0 Above high normal [place] % [place] ([facility]) neutrophils % 61.5 % 36.0-66.0 Neutrophils % [place] ( [facility]) baso % 0.6 % 0.0-1.0 Baso % [place] ([facility]) immature granulocyte % 0.4 % 0-3.0 Immature Gran ulocyte % [place] ([facility]) eos % 2.8 % 0.0-3.0 Eos % [place] ([facility]) neutrophils # 4.1 10 1.5-8.5 Neutrophils # [place] ( [facility]) mono # 0.4 10 0.0-0.8 [place] # [place] ([facility]) lymph # 1.9 10 1.5-5.0 Lymph # [place] ([facility]) nucleated red blood cell % 0.0 % 0-0 Nucleated Red Blood Cell % [place] ([facility]) eos # 0.2 10 0.0-0.5 Eos # [place] ([facility]) baso # 0.0 10 0.0-0.2 Baso # [place] ([facility]) ID Date Data Source [id number] 02/01/2020 12:10:00 PM EST [place] ([facility]) Name Value Range Interpretation Code Description Data Libia rce(s) Supporting Document(s) HCG, serum quantitative < 1.0 HCG, Serum Q uantitative [place] ([facility]) ID Date Data Source [id number] 02/01/2020 12:10:00 PM EST [place] ([facility]) Name Value Range Interpretation Code Description Data Libia rce(s) Supporting Document(s) thyroid stimulating hormone 2.300 uIU/mL 0.463-3.98 Thyroid Stimulating Hormone [place] ([facility]) ID Date Data Source [id number] 02/01/2020 12:10:00 PM EST [place] ([facility]) Name Value Range Interpretation Code Description Data Libia rce(s) Supporting Document(s) glucose, fasting 85 mg/dL 70-100 Glucose, Fasting AT [facility] ([facility]) blood urea nitrogen 10 mg/dL 7-18 Blood Urea Nitro gen [place] ([facility]) creatinine for GFR 0.76 mg/dL 0.55-1.30 Creatinine for GF R [place] ([facility]) potassium serum 4.1 mEq/L 3.5-5.1 Potassium Serum [place] ([facility]) chloride level 107 mEq/L 98-107 Chloride Level [place] ([facility]) sodium level 141 mEq/L 136-145 Sodium Level [place] ([facility]) carbon dioxide level 28 mEq/L 21-32 Carbon Dioxide Level [place] ([facility]) anion gap 6 mEq/L 8-16 Below low normal Anion Gap [place] ( [facility]) calcium level 9.7 mg/dL 8.5-10.1 Calcium Level [place] ( [facility]) AST/SGOT 4 U/L 7-37 Below low normal AST/SGOT [place] ( [facility]) bilirubin,total 0.5 mg/dL 0.2-1.0 Bilirubin,total [place] [place] ([facility]) alkaline phosphatase 73 U/L 45-117 Alkaline Phosph atase [place] ([facility]) ALT/SGPT 13 U/L 12-78 ALT/SGPT [place] ([facility]) albumin 3.9 gm/dL 3.2-5.2 Albumin [place] ([facility]) total protein 7.1 gm/dL 6.4-8.2 Total Protein [place] ( [facility]) albumin/globulin ratio 1.2-2.2 Albumin/globu dyana Ratio [place] ([facility]) ID Date Data Source [id number] 02/01/2020 12:10:00 PM EST [place] ([facility]) Name Value Range Interpretation Code Description Data Libia rce(s) Supporting Document(s) white blood count 6.7 10 4.0-10.0 White Blood Count [place] ([facility]) hemoglobin 12.5 g/dL 12.0-15.5 Hemoglobin [place] ([facility]) red blood count 4.43 10 4.00-5.40 Red Blood Count [facility] [place] ([facility]) hematocrit 38.8 % 36.0-47.0 Hematocrit [place] ([facility]) mean corpuscular HGB conc 32.2 g/dL 32.0-36.5 Mean Corpu scular HGB Conc [place] ([facility]) mean corpuscular volume 87.6 fL 80.0-96.0 Mean Corpusc ular Volume [place] ([facility]) mean corpuscular hemoglobin 28.2 pg 27.0-33.0 Mean Cor puscular Hemoglobin [place] ([facility]) red cell distribution width 13.5 % 11.5-14.5 Red Cell Distribution Width [place] ([facility]) neutrophils % 61.5 % 36.0-66.0 Neutrophils % [place] ( [facility]) platelet count, automated 271 10 150-450 Platelet C ount, Automated [place] ([facility]) lymph % 28.9 % 24.0-44.0 Lymph % [place] ([facility]) mono % 5.8 % 0.0-5.0 Above high normal [place] % [place] ([facility]) nucleated red blood cell % 0.0 % 0-0 Nucleated Red Blood Cell % [place] ([facility]) eos % 2.8 % 0.0-3.0 Eos % [place] ([facility]) immature granulocyte % 0.4 % 0-3.0 Immature Gran ulocyte % [place] ([facility]) baso % 0.6 % 0.0-1.0 Baso % [place] ([facility]) neutrophils # 4.1 10 1.5-8.5 Neutrophils # [place] ( [facility]) eos # 0.2 10 0.0-0.5 Eos # [place] ([facility]) mono # 0.4 10 0.0-0.8 [place] # [place] ([facility]) lymph # 1.9 10 1.5-5.0 Lymph # [place] ([facility]) baso # 0.0 10 0.0-0.2 Baso # [place] ([facility]) ID Date Data Source [id number] 02/01/2020 12:10:00 PM EST [place] ([facility]) Name Value Range Interpretation Code Description Data Libia rce(s) Supporting Document(s) HCG, serum quantitative < 1.0 HCG, Serum Q uantitative [place] ([facility]) ID Date Data Source [id number] 02/01/2020 12:10:00 PM EST [place] ([facility]) Name Value Range Interpretation Code Description Data Libia rce(s) Supporting Document(s) thyroid stimulating hormone 2.300 uIU/mL 0.463-3.98 Thyroid Stimulating Hormone [place] ([facility]) ID Date Data Source [id number] 02/01/2020 12:10:00 PM EST [place] ([facility]) Name Value Range Interpretation Code Description Data Libia rce(s) Supporting Document(s) glucose, fasting 85 mg/dL 70-100 Glucose, Fasting AT [facility] ([facility]) potassium serum 4.1 mEq/L 3.5-5.1 Potassium Serum [facility] ([facility]) blood urea nitrogen 10 mg/dL 7-18 Blood Urea Nitro gen [place] ([facility]) creatinine for GFR 0.76 mg/dL 0.55-1.30 Creatinine for GF R [place] ([facility]) sodium level 141 mEq/L 136-145 Sodium Level [place] (No [facility]) chloride level 107 mEq/L 98-107 Chloride Level [place] ([facility]) calcium level 9.7 mg/dL 8.5-10.1 Calcium Level [place] ( [facility]) anion gap 6 mEq/L 8-16 Below low normal Anion Gap [place] ( [facility]) carbon dioxide level 28 mEq/L 21-32 [facility] ALT/SGPT 13 U/L 12-78 ALT/SGPT [place] ([facility]) alkaline phosphatase 73 U/L 45-117 Alkaline Phosph atase [place] ([facility]) bilirubin,total 0.5 mg/dL 0.2-1.0 Bilirubin,total AT[facility]) AST/SGOT 4 U/L 7-37 Below low normal AST/SGOT [place] ( [facility]) albumin/globulin ratio 1.2-2.2 Albumin[facility]u [facility] total protein 7.1 gm/dL 6.4-8.2 Total Protein [place] ( [facility]) albumin 3.9 gm/dL 3.2-5.2 Albumin [place] ([facility]) ID Date Data Source [id number] 02/01/2020 12:10:00 PM EST [place] ([facility]) Name Value Range Interpretation Code Description Data Libia rce(s) Supporting Document(s) white blood count 6.7 10 4.0-10.0 White Blood Count [place] ([facility]) red blood count 4.43 10 4.00-5.40 Red Blood Count [facility] ([facility]) mean corpuscular volume 87.6 fL 80.0-96.0 Mean Corpusc ular Volume [place] ([facility]) mean corpuscular hemoglobin 28.2 pg 27.0-33.0 Mean Cor puscular Hemoglobin [place] ([facility]) hematocrit 38.8 % 36.0-47.0 Hematocrit [place] ([facility]) hemoglobin 12.5 g/dL 12.0-15.5 Hemoglobin [place] ([facility]) neutrophils % 61.5 % 36.0-66.0 Neutrophils % [place] ( [facility]) mean corpuscular HGB conc 32.2 g/dL 32.0-36.5 Mean Corpu scular HGB Conc [place] ([facility]) platelet count, automated 271 10 150-450 Platelet C ount, Automated [place] ([facility]) red cell distribution width 13.5 % 11.5-14.5 Red Cell Distribution Width [place] ([facility]) baso % 0.6 % 0.0-1.0 Baso % [place] ([facility]) lymph % 28.9 % 24.0-44.0 Lymph % [place] ([facility]) mono % 5.8 % 0.0-5.0 Above high normal [place] % [place] [facility] [facility] eos % 2.8 % 0.0-3.0 Eos % [place] ([facility]) neutrophils # 4.1 10 1.5-8.5 Neutrophils # [place] ( [facility]) nucleated red blood cell % 0.0 % 0-0 Nucleated Red Blood Cell % [place] ([facility]) immature granulocyte % 0.4 % 0-3.0 Immature Gran ulocyte % [place] ([facility]) lymph # 1.9 10 1.5-5.0 Lymph # [place] ([facility]) mono # 0.4 10 0.0-0.8 [place] # [place] ([facility]) eos # 0.2 10 0.0-0.5 Eos # [place] ([facility]) baso # 0.0 10 0.0-0.2 Baso # [place] ([facility]) ID Date Data Source [id number] 02/01/2020 12:10:00 PM EST [place] ([facility]) Name Value Range Interpretation Code Description Data Libia rce(s) Supporting Document(s) HCG, serum quantitative < 1.0 HCG, Serum Q uantitative [place] ([facility]) ID Date Data Source [id number] 02/01/2020 12:10:00 PM EST [place] ([facility]) Name Value Range Interpretation Code Description Data Libia rce(s) Supporting Document(s) thyroid stimulating hormone 2.300 uIU/mL 0.463-3.98 Thyroid Stimulating Hormone [place] ([facility]) ID Date Data Source [id number] 02/01/2020 12:10:00 PM EST [place] ([facility]) Name Value Range Interpretation Code Description Data Libia rce(s) Supporting Document(s) blood urea nitrogen 10 mg/dL 7-18 Blood Urea Nitro gen [place] ([facility]) glucose, fasting 85 mg/dL 70-100 Glucose, Fasting AT [facility] ([facility]) sodium level 141 mEq/L 136-145 [facility] [place] [facility] creatinine for GFR 0.76 mg/dL 0.55-1.30 Creatinine for GF R [place] ([facility]) chloride level 107 mEq/L 98-107 Chloride Level [place] ([facility]) potassium serum 4.1 mEq/L 3.5-5.1 Potassium Serum [place] ([facility]) anion gap 6 mEq/L 8-16 Below low normal Anion Gap [place] ( [facility]) AST/SGOT 4 U/L 7-37 Below low normal AST/SGOT [place] ( [facility]) carbon dioxide level 28 mEq/L 21-32 Carbon Dioxide Level [place] ([facility]) calcium level 9.7 mg/dL 8.5-10.1 Calcium Level [place] ( [facility]) bilirubin,total 0.5 mg/dL 0.2-1.0 Bilirubin,total [facility] ([facility]) ALT/SGPT 13 U/L 12-78 ALT/SGPT [place] ([facility]) alkaline phosphatase 73 U/L 45-117 Alkaline Phosph atase [place] ([facility]) albumin 3.9 gm/dL 3.2-5.2 Albumin [place] ([facility]) total protein 7.1 gm/dL 6.4-8.2 Total Protein [place] ( [facility]) albumin/globulin ratio 1.2-2.2 Albumin/globu dyana Ratio [place] ([facility]) ID Date Data Source [id number] 02/01/2020 12:10:00 PM EST [place] ([facility]) Name Value Range Interpretation Code Description Data Libia rce(s) Supporting Document(s) white blood count 6.7 10 4.0-10.0 White Blood Count [place] ([facility]) hematocrit 38.8 % 36.0-47.0 Hematocrit [place] ([facility]) red blood count 4.43 10 4.00-5.40 Red Blood Count [facility] ([facility]) hemoglobin 12.5 g/dL 12.0-15.5 Hemoglobin [place] ([facility]) mean corpuscular HGB conc 32.2 g/dL 32.0-36.5 Mean Corpu scular HGB Conc [place] ([facility]) mean corpuscular volume 87.6 fL 80.0-96.0 Mean Corpusc ular Volume [place] ([facility]) mean corpuscular hemoglobin 28.2 pg 27.0-33.0 Mean Cor puscular Hemoglobin [place] ([facility]) platelet count, automated 271 10 150-450 Platelet C ount, Automated [place] ([facility]) neutrophils % 61.5 % 36.0-66.0 Neutrophils % [place] ( [facility]) red cell distribution width 13.5 % 11.5-14.5 Red Cell Distribution Width [place] ([facility]) baso % 0.6 % 0.0-1.0 Baso % [place] ([facility]) mono % 5.8 % 0.0-5.0 Above high normal [place] % [place] ([facility]) lymph % 28.9 % 24.0-44.0 Lymph % [place] ([facility]) eos % 2.8 % 0.0-3.0 Eos % [place] ([facility]) nucleated red blood cell % 0.0 % 0-0 Nucleated Red Blood Cell % [place] ([facility]) immature granulocyte % 0.4 % 0-3.0 Immature Gran ulocyte % [place] ([facility]) lymph # 1.9 10 1.5-5.0 Lymph # [place] ([facility]) mono # 0.4 10 0.0-0.8 [place] # [place] ([facility]) neutrophils # 4.1 10 1.5-8.5 Neutrophils # [place] ( [facility]) eos # 0.2 10 0.0-0.5 Eos # [place] ([facility]) baso # 0.0 10 0.0-0.2 Baso # [place] ([facility]) ID Date Data Source [id number] 02/01/2020 12:10:00 PM EST [place] ([facility]) Name Value Range Interpretation Code Description Data Libia rce(s) Supporting Document(s) HCG, serum quantitative < 1.0 HCG, Serum Q uantitative [place] ([facility]) ID Date Data Source [id number] 02/01/2020 12:10:00 PM EST [place] ([facility]) Name Value Range Interpretation Code Description Data Libia rce(s) Supporting Document(s) thyroid stimulating hormone 2.300 uIU/mL 0.463-3.98 Thyroid Stimulating Hormone [place] ([facility]) ID Date Data Source [id number] 02/01/2020 12:10:00 PM EST [place] ([facility]) Name Value Range Interpretation Code Description Data Libia rce(s) Supporting Document(s) glucose, fasting 85 mg/dL 70-100 Glucose, Fasting AT [facility] ([facility]) sodium level 141 mEq/L 136-145 Sodium Level [place] ([facility]) creatinine for GFR 0.76 mg/dL 0.55-1.30 Creatinine for GF R [place] ([facility]) blood urea nitrogen 10 mg/dL 7-18 Blood Urea Nitro gen [place] ([facility]) potassium serum 4.1 mEq/L 3.5-5.1 Potassium Serum [place] ([facility]) chloride level 107 mEq/L 98-107 Chloride Level [place] ([facility]) carbon dioxide level 28 mEq/L 21-32 Carbon Dioxide Level [place] ([facility]) anion gap 6 mEq/L 8-16 Below low normal Anion Gap [place] ( [facility]) calcium level 9.7 mg/dL 8.5-10.1 Calcium Level [place] ( [facility]) AST/SGOT 4 U/L 7-37 Below low normal AST/SGOT [place] ( [facility]) ALT/SGPT 13 U/L 12-78 ALT/SGPT [place] ([facility]) alkaline phosphatase 73 U/L 45-117 Alkaline Phosph atase [place] ([facility]) bilirubin,total 0.5 mg/dL 0.2-1.0 Bilirubin,total [facility] ([facility]) albumin 3.9 gm/dL 3.2-5.2 Albumin [place] ([facility]) albumin/globulin ratio 1.2-2.2 Albumin/globu dyana Ratio [place] ([facility]) total protein 7.1 gm/dL 6.4-8.2 Total Protein [place] ( [facility]) ID Date Data Source [id number] 02/01/2020 12:10:00 PM EST [place] ([facility]) Name Value Range Interpretation Code Description Data Libia rce(s) Supporting Document(s) red blood count 4.43 10 4.00-5.40 Red Blood Count [place] ([facility]) white blood count 6.7 10 4.0-10.0 White Blood Count [place] ([facility]) hematocrit 38.8 % 36.0-47.0 Hematocrit [place] ([facility]) hemoglobin 12.5 g/dL 12.0-15.5 Hemoglobin [place] ([facility]) mean corpuscular volume 87.6 fL 80.0-96.0 Mean Corpusc ular Volume [place] ([facility]) mean corpuscular hemoglobin 28.2 pg 27.0-33.0 Mean Cor puscular Hemoglobin [place] ([facility]) mean corpuscular HGB conc 32.2 g/dL 32.0-36.5 Mean Corpu scular HGB Conc [place] ([facility]) red cell distribution width 13.5 % 11.5-14.5 Red Cell Distribution Width [place] ([facility]) platelet count, automated 271 10 150-450 Platelet C ount, Automated [place] ([facility]) lymph % 28.9 % 24.0-44.0 Lymph % [place] ([facility]) neutrophils % 61.5 % 36.0-66.0 Neutrophils % [place] ( [facility]) mono % 5.8 % 0.0-5.0 Above high normal [place] % [place] ([facility]) eos % 2.8 % 0.0-3.0 Eos % [place] ([facility]) immature granulocyte % 0.4 % 0-3.0 Immature Gran ulocyte % [place] ([facility]) nucleated red blood cell % 0.0 % 0-0 Nucleated Red Blood Cell % [place] ([facility]) baso % 0.6 % 0.0-1.0 Baso % [place] ([facility]) lymph # 1.9 10 1.5-5.0 Lymph # [place] ([facility]) mono # 0.4 10 0.0-0.8 [place] # [place] ([facility]) eos # 0.2 10 0.0-0.5 Eos # [place] ([facility]) neutrophils # 4.1 10 1.5-8.5 Neutrophils # [place] ( [facility]) baso # 0.0 10 0.0-0.2 Baso # [place] ([facility]) ID Date Data Source [id number] 02/01/2020 12:10:00 PM EST [place] ([facility]) Name Value Range Interpretation Code Description Data Libia rce(s) Supporting Document(s) HCG, serum quantitative < 1.0 HCG, Serum Q uantitative [place] ([facility]) ID Date Data Source [id number] 02/01/2020 12:10:00 PM EST [place] ([facility]) Name Value Range Interpretation Code Description Data Libia rce(s) Supporting Document(s) thyroid stimulating hormone 2.300 uIU/mL 0.463-3.98 Thyroid Stimulating Hormone [place] ([facility]) ID Date Data Source [id number] 02/01/2020 12:10:00 PM EST [place] ([facility]) Name Value Range Interpretation Code Description Data Libia rce(s) Supporting Document(s) glucose, fasting 85 mg/dL 70-100 Glucose, Fasting AT [facility] ([facility]) blood urea nitrogen 10 mg/dL 7-18 Blood Urea Nitro gen [place] ([facility]) creatinine for GFR 0.76 mg/dL 0.55-1.30 Creatinine for GF R [place] ([facility]) potassium serum 4.1 mEq/L 3.5-5.1 Potassium Serum [place] ([facility]) sodium level 141 mEq/L 136-145 Sodium Level [place] (No [facility]) chloride level 107 mEq/L 98-107 Chloride Level [place] ([facility]) anion gap 6 mEq/L 8-16 Below low normal Anion Gap [place] ( [facility]) carbon dioxide level 28 mEq/L 21-32 Carbon Dioxide Level [place] ([facility]) calcium level 9.7 mg/dL 8.5-10.1 Calcium Level [place] ( [facility]) ALT/SGPT 13 U/L 12-78 ALT/SGPT [place] ([facility]) AST/SGOT 4 U/L 7-37 Below low normal AST/SGOT [place] ( [facility]) alkaline phosphatase 73 U/L 45-117 Alkaline Phosph atase [place] ([facility]) total protein 7.1 gm/dL 6.4-8.2 Total Protein [place] ( [facility]) albumin 3.9 gm/dL 3.2-5.2 Albumin [place] ([facility]) bilirubin,total 0.5 mg/dL 0.2-1.0 Bilirubin,total [place] ([facility]) albumin/globulin ratio 1.2-2.2 Albumin/globu dyana Ratio [place] ([facility]) ID Date Data Source [id number] 02/01/2020 12:10:00 PM EST [place] ([facility]) Name Value Range Interpretation Code Description Data Libia rce(s) Supporting Document(s) white blood count 6.7 10 4.0-10.0 White Blood Count [place] ([facility]) hematocrit 38.8 % 36.0-47.0 Hematocrit [place] ([facility]) red blood count 4.43 10 4.00-5.40 Red Blood Count [facility] ([facility]) hemoglobin 12.5 g/dL 12.0-15.5 Hemoglobin [place] ([facility]) mean corpuscular volume 87.6 fL 80.0-96.0 Mean Corpusc ular Volume [place] ([facility]) red cell distribution width 13.5 % 11.5-14.5 Red Cell Distribution Width [place] ([facility]) mean corpuscular hemoglobin 28.2 pg 27.0-33.0 Mean Cor puscular Hemoglobin [place] ([facility]) mean corpuscular HGB conc 32.2 g/dL 32.0-36.5 Mean Corpu scular HGB Conc [place] ([facility]) platelet count, automated 271 10 150-450 Platelet C ount, Automated [place] ([facility]) lymph % 28.9 % 24.0-44.0 Lymph % [place] ([facility]) neutrophils % 61.5 % 36.0-66.0 Neutrophils % [place] ( [facility]) mono % 5.8 % 0.0-5.0 Above high normal [place] % [place] ([facility]) nucleated red blood cell % 0.0 % 0-0 Nucleated Red Blood Cell % [place] ([facility]) immature granulocyte % 0.4 % 0-3.0 Immature Gran ulocyte % [place] ([facility]) baso % 0.6 % 0.0-1.0 Baso % [place] ([facility]) eos % 2.8 % 0.0-3.0 Eos % [place] ([facility]) mono # 0.4 10 0.0-0.8 [place] # [place] ([facility]) neutrophils # 4.1 10 1.5-8.5 Neutrophils # [place] ( [facility]) eos # 0.2 10 0.0-0.5 Eos # [place] ([facility]) baso # 0.0 10 0.0-0.2 Baso # [place] ([facility]) lymph # 1.9 10 1.5-5.0 Lymph # [place] ([facility]) ID Date Data Source [id number] 02/01/2020 12:10:00 PM EST [place] ([facility]) Name Value Range Interpretation Code Description Data Libia rce(s) Supporting Document(s) HCG, serum quantitative < 1.0 HCG, Serum Q uantitative [place] ([facility]) ID Date Data Source [id number] 02/01/2020 12:10:00 PM EST [place] ([facility]) Name Value Range Interpretation Code Description Data Libia rce(s) Supporting Document(s) thyroid stimulating hormone 2.300 uIU/mL 0.463-3.98 Thyroid Stimulating Hormone [place] ([facility]) ID Date Data Source [id number] 02/01/2020 12:10:00 PM EST [place] ([facility]) Name Value Range Interpretation Code Description Data Libia rce(s) Supporting Document(s) blood urea nitrogen 10 mg/dL 7-18 Blood Urea Nitro gen [place] ([facility]) glucose, fasting 85 mg/dL 70-100 Glucose, Fasting AT [facility]) chloride level 107 mEq/L 98-107 Chloride Level [place] ([facility]) sodium level 141 mEq/L 136-145 Sodium Level [place] ([facility]) potassium serum 4.1 mEq/L 3.5-5.1 Potassium Serum [place] [place] ([facility]) creatinine for GFR 0.76 mg/dL 0.55-1.30 Creatinine for GF R [place] ([facility]) carbon dioxide level 28 mEq/L 21-32 Carbon Dioxide Level [place] ([facility]) calcium level 9.7 mg/dL 8.5-10.1 Calcium Level [place] ( [facility]) anion gap 6 mEq/L 8-16 Below low normal Anion Gap [place] ( [facility]) AST/SGOT 4 U/L 7-37 Below low normal AST/SGOT [place] ( [facility]) ALT/SGPT 13 U/L 12-78 ALT/SGPT [place] ([facility]) bilirubin,total 0.5 mg/dL 0.2-1.0 Bilirubin,total [place] ([facility]) alkaline phosphatase 73 U/L 45-117 Alkaline Phosph atase [place] ([facility]) albumin/globulin ratio 1.2-2.2 Albumin/globu dyana Ratio [place] ([facility]) total protein 7.1 gm/dL 6.4-8.2 Total Protein [place] ( [facility]) albumin 3.9 gm/dL 3.2-5.2 Albumin [place] ([facility]) ID Date Data Source [id number] 02/01/2020 12:10:00 PM EST [place] ([facility]) Name Value Range Interpretation Code Description Data Libia rce(s) Supporting Document(s) white blood count 6.7 10 4.0-10.0 White Blood Count [place] ([facility]) red blood count 4.43 10 4.00-5.40 Red Blood Count [place] ([facility]) mean corpuscular volume 87.6 fL 80.0-96.0 Mean Corpusc ular Volume [place] ([facility]) hematocrit 38.8 % 36.0-47.0 Hematocrit [place] ([facility]) hemoglobin 12.5 g/dL 12.0-15.5 Hemoglobin [place] ([facility]) mean corpuscular hemoglobin 28.2 pg 27.0-33.0 Mean Cor puscular Hemoglobin [place] ([facility]) mean corpuscular HGB conc 32.2 g/dL 32.0-36.5 Mean Corpu scular HGB Conc [place] ([facility]) platelet count, automated 271 10 150-450 Platelet C ount, Automated [place] ([facility]) red cell distribution width 13.5 % 11.5-14.5 Red Cell Distribution Width [place] ([facility]) lymph % 28.9 % 24.0-44.0 Lymph % [place] ([facility]) eos % 2.8 % 0.0-3.0 Eos % [place] ([facility]) baso % 0.6 % 0.0-1.0 Baso % [place] ([facility]) neutrophils % 61.5 % 36.0-66.0 Neutrophils % [place] ( [facility]) mono % 5.8 % 0.0-5.0 Above high normal [place] % [place] ([facility]) immature granulocyte % 0.4 % 0-3.0 Immature Gran ulocyte % [place] ([facility]) nucleated red blood cell % 0.0 % 0-0 Nucleated Red Blood Cell % [place] ([facility]) neutrophils # 4.1 10 1.5-8.5 Neutrophils # [place] ( [facility]) lymph # 1.9 10 1.5-5.0 Lymph # [place] ([facility]) mono # 0.4 10 0.0-0.8 [place] # [place] ([facility]) baso # 0.0 10 0.0-0.2 Baso # [place] ([facility]) eos # 0.2 10 0.0-0.5 Eos # [place] ([facility]) ID Date Data Source [id number] 02/01/2020 12:10:00 PM EST [place] ([facility]) Name Value Range Interpretation Code Description Data Libia rce(s) Supporting Document(s) HCG, serum quantitative < 1.0 HCG, Serum Q uantitative [place] ([facility]) ID Date Data Source [id number] 02/01/2020 12:10:00 PM EST [place] ([facility]) Name Value Range Interpretation Code Description Data Libia rce(s) Supporting Document(s) thyroid stimulating hormone 2.300 uIU/mL 0.463-3.98 Thyroid Stimulating Hormone [place] ([facility]) ID Date Data Source [id number] 02/01/2020 12:10:00 PM EST [place] ([facility]) Name Value Range Interpretation Code Description Data Libia rce(s) Supporting Document(s) glucose, fasting 85 mg/dL 70-100 Glucose, Fasting AT [facility] ([facility]) creatinine for GFR 0.76 mg/dL 0.55-1.30 Creatinine for GF R [place] ([facility]) sodium level 141 mEq/L 136-145 Sodium Level [place] (No [facility]) potassium serum 4.1 mEq/L 3.5-5.1 Potassium Serum [facility] ([facility]) blood urea nitrogen 10 mg/dL 7-18 Blood Urea Nitro gen [place] ([facility]) carbon dioxide level 28 mEq/L 21-32 Carbon Dioxide Level [place] ([facility]) anion gap 6 mEq/L 8-16 Below low normal Anion Gap [place] ( [facility]) chloride level 107 mEq/L 98-107 Chloride Level [place] ([facility]) calcium level 9.7 mg/dL 8.5-10.1 Calcium Level [place] ( [facility]) alkaline phosphatase 73 U/L 45-117 Alkaline Phosph atase [place] ([facility]) bilirubin,total 0.5 mg/dL 0.2-1.0 Bilirubin,total [facility] ([facility]) ALT/SGPT 13 U/L 12-78 ALT/SGPT [place] ([facility]) AST/SGOT 4 U/L 7-37 Below low normal AST/SGOT [place] ( [facility]) albumin/globulin ratio 1.2-2.2 Albumin/globu dyana Ratio [place] ([facility]) albumin 3.9 gm/dL 3.2-5.2 Albumin [place] ([facility]) total protein 7.1 gm/dL 6.4-8.2 Total Protein [place] ( [facility]) ID Date Data Source [id number] 02/01/2020 12:10:00 PM EST [place] ([facility]) Name Value Range Interpretation Code Description Data Libia rce(s) Supporting Document(s) red blood count 4.43 10 4.00-5.40 Red Blood Count [facility] ([facility]) hemoglobin 12.5 g/dL 12.0-15.5 Hemoglobin [place] ([facility]) hematocrit 38.8 % 36.0-47.0 Hematocrit [place] ([facility]) white blood count 6.7 10 4.0-10.0 White Blood Count [place] ([facility]) platelet count, automated 271 10 150-450 Platelet C ount, Automated [place] ([facility]) mean corpuscular hemoglobin 28.2 pg 27.0-33.0 Mean Cor puscular Hemoglobin [place] ([facility]) red cell distribution width 13.5 % 11.5-14.5 Red Cell Distribution Width [place] ([facility]) mean corpuscular volume 87.6 fL 80.0-96.0 Mean Corpusc ular Volume [place] ([facility]) mean corpuscular HGB conc 32.2 g/dL 32.0-36.5 Mean Corpu scular HGB Conc [place] ([facility]) eos % 2.8 % 0.0-3.0 Eos % [place] ([facility]) baso % 0.6 % 0.0-1.0 Baso % [place] ([facility]) mono % 5.8 % 0.0-5.0 Above high normal [place] % [place] ([facility]) lymph % 28.9 % 24.0-44.0 Lymph % [place] ([facility]) neutrophils % 61.5 % 36.0-66.0 Neutrophils % [place] ( [facility]) neutrophils # 4.1 10 1.5-8.5 Neutrophils # [place] ( [facility]) nucleated red blood cell % 0.0 % 0-0 Nucleated Red Blood Cell % [place] ([facility]) immature granulocyte % 0.4 % 0-3.0 Immature Gran ulocyte % [place] ([facility]) lymph # 1.9 10 1.5-5.0 Lymph # [place] ([facility]) mono # 0.4 10 0.0-0.8 [place] # [place] ([facility]) eos # 0.2 10 0.0-0.5 Eos # [place] ([facility]) baso # 0.0 10 0.0-0.2 Baso # [place] ([facility]) ID Date Data Source [id number] 02/01/2020 12:10:00 PM EST [place] ([facility]) Name Value Range Interpretation Code Description Data Libia rce(s) Supporting Document(s) HCG, serum quantitative < 1.0 HCG, Serum Q uantitative [place] ([facility]) ID Date Data Source [id number] 02/01/2020 12:10:00 PM EST [place] ([facility]) Name Value Range Interpretation Code Description Data Ilbia rce(s) Supporting Document(s) thyroid stimulating hormone 2.300 uIU/mL 0.463-3.98 Thyroid Stimulating Hormone [place] ([facility]) ID Date Data Source [id number] 02/01/2020 12:10:00 PM EST [place] ([facility]) Name Value Range Interpretation Code Description Data Libia rce(s) Supporting Document(s) glucose, fasting 85 mg/dL 70-100 Glucose, Fasting AT [facility]) blood urea nitrogen 10 mg/dL 7-18 Blood Urea Nitro gen [place] ([facility]) creatinine for GFR 0.76 mg/dL 0.55-1.30 Creatinine for GF R [place] ([facility]) sodium level 141 mEq/L 136-145 Sodium Level [place] ([facility]) carbon dioxide level 28 mEq/L 21-32 Carbon Dioxide Level [place] ([facility]) chloride level 107 mEq/L 98-107 Chloride Level [place] ([facility]) potassium serum 4.1 mEq/L 3.5-5.1 Potassium Serum [facility] [place] ([facility]) anion gap 6 mEq/L 8-16 Below low normal Anion Gap [place] ( [facility]) ALT/SGPT 13 U/L 12-78 ALT/SGPT [place] ([facility]) bilirubin,total 0.5 mg/dL 0.2-1.0 Bilirubin,total [facility] [place] ([facility]) alkaline phosphatase 73 U/L 45-117 Alkaline Phosph atase [place] ([facility]) calcium level 9.7 mg/dL 8.5-10.1 Calcium Level [place] ( [facility]) AST/SGOT 4 U/L 7-37 Below low normal AST/SGOT [place] ( [facility]) albumin 3.9 gm/dL 3.2-5.2 Albumin [place] ([facility]) total protein 7.1 gm/dL 6.4-8.2 Total Protein [place] ( [facility]) albumin/globulin ratio 1.2-2.2 Albumin/globu dyana Ratio [place] ([facility]) ID Date Data Source [id number] 02/01/2020 12:10:00 PM EST [place] ([facility]) Name Value Range Interpretation Code Description Data Libia rce(s) Supporting Document(s) white blood count 6.7 10 4.0-10.0 White Blood Count [place] ([facility]) hemoglobin 12.5 g/dL 12.0-15.5 Hemoglobin [place] ([facility]) hematocrit 38.8 % 36.0-47.0 Hematocrit [place] ([facility]) red blood count 4.43 10 4.00-5.40 Red Blood Count [facility] ([facility]) red cell distribution width 13.5 % 11.5-14.5 Red Cell Distribution Width [place] ([facility]) mean corpuscular hemoglobin 28.2 pg 27.0-33.0 Mean Cor puscular Hemoglobin [place] ([facility]) mean corpuscular volume 87.6 fL 80.0-96.0 Mean Corpusc ular Volume [place] ([facility]) mean corpuscular HGB conc 32.2 g/dL 32.0-36.5 Mean Corpu scular HGB Conc [place] ([facility]) platelet count, automated 271 10 150-450 Platelet C ount, Automated [place] ([facility]) neutrophils % 61.5 % 36.0-66.0 Neutrophils % [place] ( [facility]) lymph % 28.9 % 24.0-44.0 Lymph % [place] ([facility]) mono % 5.8 % 0.0-5.0 Above high normal [place] % [place] ([facility]) baso % 0.6 % 0.0-1.0 Baso % [place] ([facility]) immature granulocyte % 0.4 % 0-3.0 Immature Gran ulocyte % [place] ([facility]) nucleated red blood cell % 0.0 % 0-0 Nucleated Red Blood Cell % [place] ([facility]) eos % 2.8 % 0.0-3.0 Eos % [place] ([facility]) lymph # 1.9 10 1.5-5.0 Lymph # [place] ([facility]) neutrophils # 4.1 10 1.5-8.5 Neutrophils # [place] ( [facility]) mono # 0.4 10 0.0-0.8 [place] # [place] ([facility]) eos # 0.2 10 0.0-0.5 Eos # [place] ([facility]) baso # 0.0 10 0.0-0.2 Baso # [place] ([facility]) ID Date Data Source [id number] 02/01/2020 12:10:00 PM EST [place] ([facility]) Name Value Range Interpretation Code Description Data Libia rce(s) Supporting Document(s) HCG, serum quantitative < 1.0 HCG, Serum Q uantitative [place] ([facility]) ID Date Data Source [id number] 02/01/2020 12:10:00 PM EST [place] ([facility]) Name Value Range Interpretation Code Description Data Libia rce(s) Supporting Document(s) thyroid stimulating hormone 2.300 uIU/mL 0.463-3.98 Thyroid Stimulating Hormone [place] ([facility]) ID Date Data Source [id number] 02/01/2020 12:10:00 PM EST [place] ([facility]) Name Value Range Interpretation Code Description Data Libia rce(s) Supporting Document(s) glucose, fasting 85 mg/dL 70-100 Glucose, Fasting AT [facility] ([facility]) blood urea nitrogen 10 mg/dL 7-18 Blood Urea Nitro gen [place] ([facility]) creatinine for GFR 0.76 mg/dL 0.55-1.30 Creatinine for GF R [place] ([facility]) potassium serum 4.1 mEq/L 3.5-5.1 Potassium Serum [place] ([facility]) sodium level 141 mEq/L 136-145 Sodium Level [place] (No [facility]) chloride level 107 mEq/L 98-107 Chloride Level [place] ([facility]) calcium level 9.7 mg/dL 8.5-10.1 Calcium Level [place] ( [facility]) anion gap 6 mEq/L 8-16 Below low normal Anion Gap [place] ( [facility]) carbon dioxide level 28 mEq/L 21-32 Carbon Dioxide Level [place] ([facility]) alkaline phosphatase 73 U/L 45-117 Alkaline Phosph atase [place] ([facility]) AST/SGOT 4 U/L 7-37 Below low normal AST/SGOT [place] ( [facility]) bilirubin,total 0.5 mg/dL 0.2-1.0 Bilirubin,total [place] ([facility]) ALT/SGPT 13 U/L 12-78 ALT/SGPT [place] ([facility]) total protein 7.1 gm/dL 6.4-8.2 Total Protein [place] ( [facility]) albumin 3.9 gm/dL 3.2-5.2 Albumin [place] ([facility]) albumin/globulin ratio 1.2-2.2 Albumin/globu dyana Ratio [place] ([facility]) ID Date Data Source [id number] 02/01/2020 12:10:00 PM EST [place] ([facility]) Name Value Range Interpretation Code Description Data Libia rce(s) Supporting Document(s) hemoglobin 12.5 g/dL 12.0-15.5 Hemoglobin [place] ([facility]) white blood count 6.7 10 4.0-10.0 White Blood Count [place] ([facility]) red blood count 4.43 10 4.00-5.40 Red Blood Count [place] ([facility]) mean corpuscular hemoglobin 28.2 pg 27.0-33.0 Mean Cor puscular Hemoglobin [place] ([facility]) hematocrit 38.8 % 36.0-47.0 Hematocrit [place] ([facility]) mean corpuscular volume 87.6 fL 80.0-96.0 Mean Corpusc ular Volume [place] ([facility]) red cell distribution width 13.5 % 11.5-14.5 Red Cell Distribution Width [place] ([facility]) platelet count, automated 271 10 150-450 Platelet C ount, Automated [place] ([facility]) mean corpuscular HGB conc 32.2 g/dL 32.0-36.5 Mean Corpu scular HGB Conc [place] ([facility]) neutrophils % 61.5 % 36.0-66.0 Neutrophils % [place] ( [facility]) lymph % 28.9 % 24.0-44.0 Lymph % [place] ([facility]) mono % 5.8 % 0.0-5.0 Above high normal [place] % [place] ([facility]) immature granulocyte % 0.4 % 0-3.0 Immature Gran ulocyte % [place] ([facility]) eos % 2.8 % 0.0-3.0 Eos % [place] ([facility]) baso % 0.6 % 0.0-1.0 Baso % [place] ([facility]) neutrophils # 4.1 10 1.5-8.5 Neutrophils # [place] ( [facility]) lymph # 1.9 10 1.5-5.0 Lymph # [place] ([facility]) mono # 0.4 10 0.0-0.8 [place] # [place] ([facility]) nucleated red blood cell % 0.0 % 0-0 Nucleated Red Blood Cell % [place] ([facility]) eos # 0.2 10 0.0-0.5 Eos # [place] ([facility]) baso # 0.0 10 0.0-0.2 Baso # [place] ([facility]) ID Date Data Source [id number] 02/01/2020 12:10:00 PM EST [place] ([facility]) Name Value Range Interpretation Code Description Data Libia rce(s) Supporting Document(s) HCG, serum quantitative < 1.0 HCG, Serum Q uantitative [place] ([facility]) ID Date Data Source [id number] 02/01/2020 12:10:00 PM EST [place] ([facility]) Name Value Range Interpretation Code Description Data Libia rce(s) Supporting Document(s) thyroid stimulating hormone 2.300 uIU/mL 0.463-3.98 Thyroid Stimulating Hormone [place] ([facility]) ID Date Data Source [id number] 02/01/2020 12:10:00 PM EST [place] ([facility]) Name Value Range Interpretation Code Description Data Libia rce(s) Supporting Document(s) glucose, fasting 85 mg/dL 70-100 Glucose, Fasting AT [facility] ([facility]) blood urea nitrogen 10 mg/dL 7-18 Blood Urea Nitro gen [place] ([facility]) sodium level 141 mEq/L 136-145 Sodium Level [place] (No [facility]) creatinine for GFR 0.76 mg/dL 0.55-1.30 Creatinine for GF R [place] ([facility]) potassium serum 4.1 mEq/L 3.5-5.1 Potassium Serum [place] ([facility]) chloride level 107 mEq/L 98-107 Chloride Level [place] ([facility]) carbon dioxide level 28 mEq/L 21-32 Carbon Dioxide Level [place] ([facility]) AST/SGOT 4 U/L 7-37 Below low normal AST/SGOT [place] ( [facility]) calcium level 9.7 mg/dL 8.5-10.1 Calcium Level [place] ( [facility]) anion gap 6 mEq/L 8-16 Below low normal Anion Gap [place] ( [facility]) ALT/SGPT 13 U/L 12-78 ALT/SGPT [place] ([facility]) alkaline phosphatase 73 U/L 45-117 Alkaline Phosph atase [place] ([facility]) total protein 7.1 gm/dL 6.4-8.2 Total Protein [place] ( [facility]) bilirubin,total 0.5 mg/dL 0.2-1.0 Bilirubin,total [place] ([facility]) albumin 3.9 gm/dL 3.2-5.2 Albumin [place] ([facility]) albumin/globulin ratio 1.2-2.2 Albumin/globu dyana Ratio [place] ([facility]) ID Date Data Source [id number] 12/06/2019 10:26:43 AM EDT [facility] ([facility]) Name Value Range Interpretation Code Description Data Libia rce(s) Supporting Document(s) NegativeLot: [id number]: 02/25/2021 High Sensitivity Urine Test [facility] ([facility] Procedure Social History Code Duration Value Status Description Data Source(s ) 09/23/2020 12:00:00 AM EDT Occasional cigarette smoker completed Occasional cigarette smoker [facility] ([facility]) Smoking 09/23/2020 12:00:00 AM EDT Light tobacco smoker comple shannan Light tobacco smoker [facility] ([facility]) Vital Signs ID Date Data Source [id number] Name Value Range Interpretation Code Description Data Source(s) Body height 162.56 cm 162.56 cm [facility] ([facility]) Diastolic blood pressure 70 mm[Hg] 70 mm[Hg] [facility] Systolic blood pressure 112 mm[Hg] 112 mm[Hg] N [facility] ([facility]) Body mass index (BMI) [Ratio] 20.32 kg/m2 20.32 kg/m2 [facility] ([facility]) Body weight 53.705 kg 53.705 kg [facility] ([facility]) Body height 64 [in_i] 64 [in_i] [place] ([facility]) Body height 64 [in_i] 64 [in_i] [place] ([facility]) Body height 64 [in_i] 64 [in_i] [place] ([facility]) Body height 64 [in_i] 64 [in_i] [place] ([facility]) Body height 64 [in_i] 64 [in_i] [place] ([facility]) Diastolic blood pressure 69 mm[Hg] 69 mm[Hg] [place] ([facility]) Body height 64 [in_i] 64 [in_i] [place] ([facility]) Body mass index (BMI) [Ratio] 20.9 kg/m2 20.9 k g/m2 [place] ([facility]) Systolic blood pressure 106 mm[Hg] 106 mm[Hg] A [place] ([facility]) Body weight 1944 [oz_av] 1944 [oz_av] [place] ([facility]) Diastolic blood pressure 69 mm[Hg] 69 mm[Hg] [place] ([facility]) Body height 64 [in_i] 64 [in_i] [place] ([facility]) Body mass index (BMI) [Ratio] 20.9 kg/m2 20.9 k g/m2 [place] ([facility]) Systolic blood pressure 106 mm[Hg] 106 mm[Hg] A [place] ([facility]) Body weight 1944 [oz_av] 1944 [oz_av] [place] ([facility]) Diastolic blood pressure 69 mm[Hg] 69 mm[Hg] [place] ([facility]) Body height 64 [in_i] 64 [in_i] [place] ([facility]) Body mass index (BMI) [Ratio] 20.9 kg/m2 20.9 k g/m2 [place] ([facility]) Systolic blood pressure 106 mm[Hg] 106 mm[Hg] A [place] ([facility]) Body weight 1944 [oz_av] 1944 [oz_av] [place] ([facility]) Diastolic blood pressure 69 mm[Hg] 69 mm[Hg] [place] ([facility]) Body height 64 [in_i] 64 [in_i] [place] ([facility]) Body mass index (BMI) [Ratio] 20.9 kg/m2 20.9 k g/m2 [place] ([facility]) Systolic blood pressure 106 mm[Hg] 106 mm[Hg] [facility] Body weight 1944 [oz_av] 1944 [oz_av] [place] ([facility]) Diastolic blood pressure 69 mm[Hg] 69 mm[Hg] [place] ([facility]) Body height 64 [in_i] 64 [in_i] [place] ([facility]) Body mass index (BMI) [Ratio] 20.9 kg/m2 20.9 k g/m2 [place] ([facility]) Systolic blood pressure 106 mm[Hg] 106 mm[Hg] [facility] Body weight 1944 [oz_av] 1944 [oz_av] [place] ([facility]) Diastolic blood pressure 69 mm[Hg] 69 mm[Hg] [place] ([facility]) Body height 64 [in_i] 64 [in_i] [place] ([facility]) Body mass index (BMI) [Ratio] 20.9 kg/m2 20.9 k g/m2 [place] ([facility]) Systolic blood pressure 106 mm[Hg] 106 mm[Hg] A [place] ([facility]) Body weight 1944 [oz_av] 1944 [oz_av] [place] ([facility]) Diastolic blood pressure 69 mm[Hg] 69 mm[Hg] [place] ([facility]) Body height 64 [in_i] 64 [in_i] [place] ([facility]) Body mass index (BMI) [Ratio] 20.9 kg/m2 20.9 k g/m2 [place] ([facility]) Systolic blood pressure 106 mm[Hg] 106 mm[Hg] [facility] Body weight 1944 [oz_av] 1944 [oz_av] [place] ([facility]) Diastolic blood pressure 69 mm[Hg] 69 mm[Hg] [place] ([facility]) Body height 64 [in_i] 64 [in_i] [place] ([facility]) Body mass index (BMI) [Ratio] 20.9 kg/m2 20.9 k g/m2 [place] ([facility]) Systolic blood pressure 106 mm[Hg] 106 mm[Hg] [place] ([facility]) Body weight 1944 [oz_av] 1944 [oz_av] [place] ([facility]) Diastolic blood pressure 69 mm[Hg] 69 mm[Hg] [place] ([facility]) Body height 64 [in_i] 64 [in_i] [place] ([facility]) Body mass index (BMI) [Ratio] 20.9 kg/m2 20.9 k g/m2 [place] ([facility]) Systolic blood pressure 106 mm[Hg] 106 mm[Hg] A [place] ([facility]) Body weight 1944 [oz_av] 1944 [oz_av] [place] ([facility]) Body height 162.56 cm 162.56 cm [facility] ([facility]) Body weight 58.967 kg 58.967 kg [facility] ([facility]) Systolic blood pressure 118 mm[Hg] 118 mm[Hg] N [facility] ([facility]) Diastolic blood pressure 67 mm[Hg] 67 mm[Hg] [facility] ([facility]) Body mass index (BMI) [Ratio] 22.31 kg/m2 22.31 kg/m2 [facility] ([facility]) Diastolic blood pressure 57 mm[Hg] 57 mm[Hg] [place] ([facility]) Body height 64 [in_i] 64 [in_i] [place] ([facility]) Body mass index (BMI) [Ratio] 48.1 kg/m2 48.1 k g/m2 [place] ([facility]) Systolic blood pressure 108 mm[Hg] 108 mm[Hg] A [facility] ([facility]) Body weight 4480 [oz_av] 4480 [oz_av] [place] ([facility]) Diastolic blood pressure 57 mm[Hg] 57 mm[Hg] [place] ([facility]) Body height 64 [in_i] 64 [in_i] [place] ([facility]) Body mass index (BMI) [Ratio] 48.1 kg/m2 48.1 k g/m2 [place] ([facility]) Systolic blood pressure 108 mm[Hg] 108 mm[Hg] [facility] Body weight 4480 [oz_av] 4480 [oz_av] [place] ([facility]) Diastolic blood pressure 57 mm[Hg] 57 mm[Hg] [place] ([facility]) Body height 64 [in_i] 64 [in_i] [place] ([facility]) Body mass index (BMI) [Ratio] 48.1 kg/m2 48.1 k g/m2 [place] ([facility]) Systolic blood pressure 108 mm[Hg] 108 mm[Hg] [facility] Body weight 4480 [oz_av] 4480 [oz_av] [place] ([facility]) Body weight 4480 [oz_av] 4480 [oz_av] [place] ([facility]) Diastolic blood pressure 57 mm[Hg] 57 mm[Hg] [place] ([facility]) Body height 64 [in_i] 64 [in_i] [place] ([facility]) Body mass index (BMI) [Ratio] 48.1 kg/m2 48.1 k g/m2 [place] ([facility]) Systolic blood pressure 108 mm[Hg] 108 mm[Hg] A [place] ([facility]) Diastolic blood pressure 57 mm[Hg] 57 mm[Hg] [place] ([facility]) Body height 64 [in_i] 64 [in_i] [place] ([facility]) Body mass index (BMI) [Ratio] 48.1 kg/m2 48.1 k g/m2 [place] ([facility]) Systolic blood pressure 108 mm[Hg] 108 mm[Hg] A [place] ([facility]) Body weight 4480 [oz_av] 4480 [oz_av] [place] ([facility]) Body mass index (BMI) [Ratio] 48.1 kg/m2 48.1 k g/m2 [place] ([facility]) Diastolic blood pressure 57 mm[Hg] 57 mm[Hg] [place] ([facility]) Body height 64 [in_i] 64 [in_i] [place] ([facility]) Systolic blood pressure 108 mm[Hg] 108 mm[Hg] [facility] Body weight 4480 [oz_av] 4480 [oz_av] [place] ([facility]) Diastolic blood pressure 57 mm[Hg] 57 mm[Hg] [place] ([facility]) Body height 64 [in_i] 64 [in_i] [place] ([facility]) Body mass index (BMI) [Ratio] 48.1 kg/m2 48.1 k g/m2 [place] ([facility]) Systolic blood pressure 108 mm[Hg] 108 mm[Hg] A [facility] ([facility]) Body weight 4480 [oz_av] 4480 [oz_av] [place] ([facility]) Diastolic blood pressure 57 mm[Hg] 57 mm[Hg] [place] ([facility]) Body height 64 [in_i] 64 [in_i] [place] ([facility]) Body mass index (BMI) [Ratio] 48.1 kg/m2 48.1 k g/m2 [place] ([facility]) Systolic blood pressure 108 mm[Hg] 108 mm[Hg] A [place] ([facility]) Body weight 4480 [oz_av] 4480 [oz_av] [place] ([facility]) Diastolic blood pressure 57 mm[Hg] 57 mm[Hg] [place] ([facility]) Body height 64 [in_i] 64 [in_i] [place] ([facility]) Body mass index (BMI) [Ratio] 48.1 kg/m2 48.1 k g/m2 [place] ([facility]) Systolic blood pressure 108 mm[Hg] 108 mm[Hg] A [facility] ([facility]) Body weight 4480 [oz_av] 4480 [oz_av] [place] ([facility]) Diastolic blood pressure 57 mm[Hg] 57 mm[Hg] [place] ([facility]) Body height 64 [in_i] 64 [in_i] [place] ([facility]) Body mass index (BMI) [Ratio] 48.1 kg/m2 48.1 k g/m2 [place] ([facility]) Systolic blood pressure 108 mm[Hg] 108 mm[Hg] A [place] ([facility]) Body weight 4480 [oz_av] 4480 [oz_av] [place] ([facility]) Body height 162.56 cm 162.56 cm [facility] ([facility]) Body weight 59.874 kg 59.874 kg [facility] ([facility]) Systolic blood pressure 108 mm[Hg] 108 mm[Hg] N [facility] ([facility]) Diastolic blood pressure 70 mm[Hg] 70 mm[Hg] [facility] ([facility]) Body mass index (BMI) [Ratio] 22.66 kg/m2 22.66 kg/m2 [facility] ([facility]) Body height 64 [in_i] 64 [in_i] [place] ([facility]) Body height 64 [in_i] 64 [in_i] [place] ([facility]) Body height 64 [in_i] 64 [in_i] [place] ([facility]) Body height 64 [in_i] 64 [in_i] [place] ([facility]) Body height 64 [in_i] 64 [in_i] [place] ([facility]) Body height 64 [in_i] 64 [in_i] [place] ([facility]) Body height 64 [in_i] 64 [in_i] [place] ([facility]) Body height 64 [in_i] 64 [in_i] [place] ([facility]) Body height 64 [in_i] 64 [in_i] [place] ([facility]) Body height 64 [in_i] 64 [in_i] [place] ([facility]) Body height 64 [in_i] 64 [in_i] [place] ([facility]) Body height 64 [in_i] 64 [in_i] [place] ([facility]) Body height 64 [in_i] 64 [in_i] [place] ([facility]) Body height 64 [in_i] 64 [in_i] [place] ([facility]) Body height 64 [in_i] 64 [in_i] [place] ([facility]) Body height 64 [in_i] 64 [in_i] [place] ([facility]) Body height 64 [in_i] 64 [in_i] [place] ([facility]) Body height 64 [in_i] 64 [in_i] [place] ([facility]) Body height 64 [in_i] 64 [in_i] [place] ([facility]) Body height 64 [in_i] 64 [in_i] [place] ([facility]) Body height 64 [in_i] 64 [in_i] [place] ([facility]) Body height 64 [in_i] 64 [in_i] [place] ([facility]) Body height 64 [in_i] 64 [in_i] [place] ([facility]) Body height 162.56 cm 162.56 cm [facility] ([facility]) Body weight 62.142 kg 62.142 kg [facility] ([facility]) Systolic blood pressure 112 mm[Hg] 112 mm[Hg] N [facility] ([facility]) Diastolic blood pressure 76 mm[Hg] 76 mm[Hg] [facility] ([facility]) Body mass index (BMI) [Ratio] 23.52 kg/m2 23.52 kg/m2 [facility] ([facility]) Diastolic blood pressure 74 mm[Hg] 74 mm[Hg] [place] ([facility]) Body height 64 [in_i] 64 [in_i] [place] ([facility]) Body mass index (BMI) [Ratio] 22.7 kg/m2 22.7 k g/m2 [place] ([facility]) Systolic blood pressure 115 mm[Hg] 115 mm[Hg] [facility] Body weight 2120 [oz_av] 2120 [oz_av] [place] ([facility]) Diastolic blood pressure 74 mm[Hg] 74 mm[Hg] [place] ([facility]) Body height 64 [in_i] 64 [in_i] [place] ([facility]) Body mass index (BMI) [Ratio] 22.7 kg/m2 22.7 k g/m2 [place] ([facility]) Systolic blood pressure 115 mm[Hg] 115 mm[Hg] [facility] Body weight 2120 [oz_av] 2120 [oz_av] [place] ([facility]) Systolic blood pressure 115 mm[Hg] 115 mm[Hg] A [place] ([facility]) Body weight 2120 [oz_av] 2120 [oz_av] [place] ([facility]) Diastolic blood pressure 74 mm[Hg] 74 mm[Hg] [place] ([facility]) Body height 64 [in_i] 64 [in_i] [place] ([facility]) Body mass index (BMI) [Ratio] 22.7 kg/m2 22.7 k g/m2 [place] ([facility]) Diastolic blood pressure 74 mm[Hg] 74 mm[Hg] [place] ([facility]) Body height 64 [in_i] 64 [in_i] [place] ([facility]) Body mass index (BMI) [Ratio] 22.7 kg/m2 22.7 k g/m2 [place] ([facility]) Systolic blood pressure 115 mm[Hg] 115 mm[Hg] A [place] ([facility]) Body weight 2120 [oz_av] 2120 [oz_av] [place] ([facility]) Diastolic blood pressure 74 mm[Hg] 74 mm[Hg] [place] ([facility]) Body height 64 [in_i] 64 [in_i] [place] ([facility]) Body mass index (BMI) [Ratio] 22.7 kg/m2 22.7 k g/m2 [place] ([facility]) Systolic blood pressure 115 mm[Hg] 115 mm[Hg] A [place] ([facility]) Body weight 2120 [oz_av] 2120 [oz_av] [place] ([facility]) Diastolic blood pressure 74 mm[Hg] 74 mm[Hg] [place] ([facility]) Body height 64 [in_i] 64 [in_i] [place] ([facility]) Body mass index (BMI) [Ratio] 22.7 kg/m2 22.7 k g/m2 [place] ([facility]) Systolic blood pressure 115 mm[Hg] 115 mm[Hg] [facility] Body weight 2120 [oz_av] 2120 [oz_av] [place] ([facility]) Body height 64 [in_i] 64 [in_i] [place] ([facility]) Body mass index (BMI) [Ratio] 22.7 kg/m2 22.7 k g/m2 [place] ([facility]) Systolic blood pressure 115 mm[Hg] 115 mm[Hg] [facility] Body weight 2120 [oz_av] 2120 [oz_av] [place] ([facility]) Diastolic blood pressure 74 mm[Hg] 74 mm[Hg] [place] ([facility]) Diastolic blood pressure 74 mm[Hg] 74 mm[Hg] [place] ([facility]) Body height 64 [in_i] 64 [in_i] [place] ([facility]) Body mass index (BMI) [Ratio] 22.7 kg/m2 22.7 k g/m2 [place] ([facility]) Systolic blood pressure 115 mm[Hg] 115 mm[Hg] A [place] ([facility]) Body weight 2120 [oz_av] 2120 [oz_av] [place] ([facility]) Diastolic blood pressure 74 mm[Hg] 74 mm[Hg] [place] ([facility]) Body height 64 [in_i] 64 [in_i] [place] ([facility]) Body mass index (BMI) [Ratio] 22.7 kg/m2 22.7 k g/m2 [place] ([facility]) Systolic blood pressure 115 mm[Hg] 115 mm[Hg] [facility] ([facility]) Body weight 2120 [oz_av] 2120 [oz_av] EST[place] ([facility]) Body mass index (BMI) [Ratio] 22.7 kg/m2 22.7 k g/m2 EST[place] ([facility]) Body height 64 [in_i] 64 [in_i] EST[place]LA ([facility]) Systolic blood pressure 115 mm[Hg] 115 mm[Hg] [facility] Body weight 2120 [oz_av] 2120 [oz_av] EST[place]LA ([facility]) Diastolic blood pressure 74 mm[Hg] 74 mm[Hg] EST[place]LA ([facility]) Diastolic blood pressure 74 mm[Hg] 74 mm[Hg] EST[place] ([facility]) Body height 64 [in_i] 64 [in_i] EST[place] ([facility]) Body mass index (BMI) [Ratio] 22.7 kg/m2 22.7 k g/m2 [place] ([facility]) Systolic blood pressure 115 mm[Hg] 115 mm[Hg] [facility] Body weight 2120 [oz_av] 2120 [oz_av] ESTHELA ([facility]) Body mass index (BMI) [Ratio] 22.7 kg/m2 22.7 k g/m2 [place] ([facility]) Body height 64 [in_i] 64 [in_i] EST[place] ([facility]) Systolic blood pressure 115 mm[Hg] 115 mm[Hg] A THENA ([facility]) Body weight 2120 [oz_av] 2120 [oz_av] EST[place]LA ([facility]) Diastolic blood pressure 74 mm[Hg] 74 mm[Hg] EST[place] ([facility]) Diastolic blood pressure 74 mm[Hg] 74 mm[Hg] EST[place] ([facility]) Body height 64 [in_i] 64 [in_i] EST[place] ([facility]) Body mass index (BMI) [Ratio] 22.7 kg/m2 22.7 k g/m2 [place] ([facility]) Systolic blood pressure 115 mm[Hg] 115 mm[Hg] A THENA ([facility]) Body weight 2120 [oz_av] 2120 [oz_av] ESTHELA ([facility]) Body height 162.56 cm 162.56 cm [employer] ([facility]) Body weight 58.423 kg 58.423 kg [employer] ([facility]) Systolic blood pressure 122 mm[Hg] 122 mm[Hg] N [facility] ([facility]) Diastolic blood pressure 76 mm[Hg] 76 mm[Hg] [employer] ([facility]) Body mass index (BMI) [Ratio] 22.11 kg/m2 22.11 kg/m2 [employer] ([facility]) Diastolic blood pressure 76 mm[Hg] 76 mm[Hg] ESTHELA ([facility]) Body height 64 [in_i] 64 [in_i] [place] ([facility]) Body mass index (BMI) [Ratio] 22.9 kg/m2 22.9 k g/m2 [place] ([facility]) Systolic blood pressure 113 mm[Hg] 113 mm[Hg] A THENA ([facility]) Body weight 2137.6 [oz_av] 2137.6 [oz_av] ATHEN A ([facility]) Diastolic blood pressure 76 mm[Hg] 76 mm[Hg] ESTHELA ([facility]) Body height 64 [in_i] 64 [in_i] [place] ([facility]) Body mass index (BMI) [Ratio] 22.9 kg/m2 22.9 k g/m2 [place] ([facility]) Systolic blood pressure 113 mm[Hg] 113 mm[Hg] A THENA ([facility]) Body weight 2137.6 [oz_av] 2137.6 [oz_av] ATHEN A ([facility]) Diastolic blood pressure 76 mm[Hg] 76 mm[Hg] EST[place]LA ([facility]) Body height 64 [in_i] 64 [in_i] [place] ([facility]) Body mass index (BMI) [Ratio] 22.9 kg/m2 22.9 k g/m2 [place] ([facility]) Systolic blood pressure 113 mm[Hg] 113 mm[Hg] A THENA ([facility]) Body weight 2137.6 [oz_av] 2137.6 [oz_av] ATHEN A ([facility]) Systolic blood pressure 113 mm[Hg] 113 mm[Hg] A THENA ([facility]) Body weight 2137.6 [oz_av] 2137.6 [oz_av] ATHEN A ([facility]) Diastolic blood pressure 76 mm[Hg] 76 mm[Hg] EST[place]LA ([facility]) Body height 64 [in_i] 64 [in_i] [place] ([facility]) Body mass index (BMI) [Ratio] 22.9 kg/m2 22.9 k g/m2 [place] ([facility]) Diastolic blood pressure 76 mm[Hg] 76 mm[Hg] [place] ([facility]) Body height 64 [in_i] 64 [in_i] [place] ([facility]) Body mass index (BMI) [Ratio] 22.9 kg/m2 22.9 k g/m2 [place] ([facility]) Systolic blood pressure 113 mm[Hg] 113 mm[Hg] A THENA ([facility]) Body weight 2137.6 [oz_av] 2137.6 [oz_av] ATHEN A ([facility]) Diastolic blood pressure 76 mm[Hg] 76 mm[Hg] EST[place] ([facility]) Body height 64 [in_i] 64 [in_i] [place] ([facility]) Body mass index (BMI) [Ratio] 22.9 kg/m2 22.9 k g/m2 [place] ([facility]) Systolic blood pressure 113 mm[Hg] 113 mm[Hg] A THENA ([facility]) Body weight 2137.6 [oz_av] 2137.6 [oz_av] ATHEN A ([facility]) Body height 64 [in_i] 64 [in_i] [place] ([facility]) Body mass index (BMI) [Ratio] 22.9 kg/m2 22.9 k g/m2 [place] ([facility]) Systolic blood pressure 113 mm[Hg] 113 mm[Hg] [facility] Body weight 2137.6 [oz_av] 2137.6 [oz_av] ATHEN A ([facility]) Diastolic blood pressure 76 mm[Hg] 76 mm[Hg] EST[place] ([facility]) Diastolic blood pressure 76 mm[Hg] 76 mm[Hg] [place] ([facility]) Body height 64 [in_i] 64 [in_i] [place] ([facility]) Body mass index (BMI) [Ratio] 22.9 kg/m2 22.9 k g/m2 [place] ([facility]) Systolic blood pressure 113 mm[Hg] 113 mm[Hg] A [facility] ([facility]) Body weight 2137.6 [oz_av] 2137.6 [oz_av] ATHEN A ([facility]) Diastolic blood pressure 76 mm[Hg] 76 mm[Hg] EST[place] ([facility]) Body height 64 [in_i] 64 [in_i] [place] ([facility]) Body mass index (BMI) [Ratio] 22.9 kg/m2 22.9 k g/m2 [place] ([facility]) Systolic blood pressure 113 mm[Hg] 113 mm[Hg] A [facility] ([facility]) Body weight 2137.6 [oz_av] 2137.6 [oz_av] ATHEN A ([facility]) Diastolic blood pressure 76 mm[Hg] 76 mm[Hg] [place] ([facility]) Body height 64 [in_i] 64 [in_i] [place] ([facility]) Body mass index (BMI) [Ratio] 22.9 kg/m2 22.9 k g/m2 [place] ([facility]) Systolic blood pressure 113 mm[Hg] 113 mm[Hg] A [facility] ([facility]) Body weight 2137.6 [oz_av] 2137.6 [oz_av] ATHEN A ([facility]) Body mass index (BMI) [Ratio] 22.9 kg/m2 22.9 k g/m2 [place] ([facility]) Systolic blood pressure 113 mm[Hg] 113 mm[Hg] [facility] Body weight 2137.6 [oz_av] 2137.6 [oz_av] ATHEN A ([facility]) Diastolic blood pressure 76 mm[Hg] 76 mm[Hg] EST[place] ([facility]) Body height 64 [in_i] 64 [in_i] [place] ([facility]) Diastolic blood pressure 76 mm[Hg] 76 mm[Hg] [place] ([facility]) Body height 64 [in_i] 64 [in_i] [place] ([facility]) Body mass index (BMI) [Ratio] 22.9 kg/m2 22.9 k g/m2 [place] ([facility]) Systolic blood pressure 113 mm[Hg] 113 mm[Hg] [facility] Body weight 2137.6 [oz_av] 2137.6 [oz_av] ATHEN A ([facility]) Diastolic blood pressure 76 mm[Hg] 76 mm[Hg] EST[place] ([facility]) Body height 64 [in_i] 64 [in_i] [place] ([facility]) Body mass index (BMI) [Ratio] 22.9 kg/m2 22.9 k g/m2 [place] ([facility]) Systolic blood pressure 113 mm[Hg] 113 mm[Hg] [facility] Body weight 2137.6 [oz_av] 2137.6 [oz_av] ATHEN A ([facility]) Diastolic blood pressure 76 mm[Hg] 76 mm[Hg] [place] ([facility]) Body height 64 [in_i] 64 [in_i] [place] ([facility]) Body mass index (BMI) [Ratio] 22.9 kg/m2 22.9 k g/m2 [place] ([facility]) Systolic blood pressure 113 mm[Hg] 113 mm[Hg] [facility] Body weight 2137.6 [oz_av] 2137.6 [oz_av] ATHEN A ([facility]) Body height 162.56 cm 162.56 cm [facility] ([facility]) Body weight 63.049 kg 63.049 kg [employer] ([facility]) Systolic blood pressure 110 mm[Hg] 110 mm[Hg] N [facility] ([facility]) Diastolic blood pressure 74 mm[Hg] 74 mm[Hg] [employer] ([facility]) Body mass index (BMI) [Ratio] 23.86 kg/m2 23.86 kg/m2 [employer] ([facility]) ID Date Data Source [id number] 03/18/2020 03:28:22 PM [facility] Name Value Range Interpretation Code Description Data Source(s) WEIGHT RECORDED 137.10 pounds 137.10 pounds [facility] Height 64 Inches 064 Inches [facility] Patient Treatment Plan of Care Planned Activity Planned Date Details Description Data Source (s) Vitamins Plus Low Iron 27 mg iron-1 mg tablet 09/23/2020 12:00:00 AM EDT [facility] Prena1 True 30 mg iron-1.4 mg-300 mg oral pack 04/09/2020 12:00:00 AM EST [employer] ([facility]) Azithromycin 500 MG Oral Tablet 04/09/2020 12:00:00 AM EST [employer] ([facility]) Apri 0.15 mg-0.03 mg tablet 12/06/2019 12:00:00 AM EDT [employer] ([facility]) Metronidazole 500 MG Oral Tablet [place] ([facility]) Permethrin 10 MG/ML Medicated Shampoo EST[place] ([facility]) Escitalopram 20 MG Oral Tablet [place] ([facility]) Escitalopram 10 MG Oral Tablet [place] ([facility]) Azithromycin 500 MG Oral Tablet [place] ([facility]) Metronidazole 500 MG Oral Tablet [place] ([facility]) Permethrin 10 MG/ML Medicated Shampoo [place] ([facility]) Escitalopram 20 MG Oral Tablet [place] ([facility]) Escitalopram 10 MG Oral Tablet [place] ([facility]) Azithromycin 500 MG Oral Tablet [place] ([facility]) Metronidazole 500 MG Oral Tablet [place] ([facility]) Permethrin 10 MG/ML Medicated Shampoo [place] ([facility]) Escitalopram 20 MG Oral Tablet [place] ([facility]) Escitalopram 10 MG Oral Tablet [place] ([facility]) Azithromycin 500 MG Oral Tablet [place] ([facility]) Metronidazole 500 MG Oral Tablet [place] ([facility]) Permethrin 10 MG/ML Medicated Shampoo [place] ([facility]) Escitalopram 20 MG Oral Tablet [place] ([facility]) Escitalopram 10 MG Oral Tablet [place] ([facility]) Azithromycin 500 MG Oral Tablet [place] ([facility]) Metronidazole 500 MG Oral Tablet [place] ([facility]) Permethrin 10 MG/ML Medicated Shampoo [place] ([facility]) Escitalopram 20 MG Oral Tablet [place] ([facility]) Escitalopram 10 MG Oral Tablet [place] ([facility]) Azithromycin 500 MG Oral Tablet [place] ([facility]) Metronidazole 500 MG Oral Tablet [place] ([facility]) Permethrin 10 MG/ML Medicated Shampoo [place] ([facility]) Escitalopram 20 MG Oral Tablet [place] ([facility]) Escitalopram 10 MG Oral Tablet [place] ([facility]) Azithromycin 500 MG Oral Tablet [place] ([facility]) Metronidazole 500 MG Oral Tablet [place] ([facility]) Permethrin 10 MG/ML Medicated Shampoo [place] ([facility]) Escitalopram 20 MG Oral Tablet [place] ([facility]) Escitalopram 10 MG Oral Tablet [place] ([facility]) Azithromycin 500 MG Oral Tablet [place] ([facility]) Metronidazole 500 MG Oral Tablet [place] ([facility]) Permethrin 10 MG/ML Medicated Shampoo [place] ([facility]) Escitalopram 20 MG Oral Tablet [place] ([facility]) Escitalopram 10 MG Oral Tablet [place] ([facility]) Azithromycin 500 MG Oral Tablet [place] ([facility]) Metronidazole 500 MG Oral Tablet [place] ([facility]) Permethrin 10 MG/ML Medicated Shampoo [place] ([facility]) Escitalopram 20 MG Oral Tablet [place] ([facility]) Escitalopram 10 MG Oral Tablet [place] ([facility]) Azithromycin 500 MG Oral Tablet [place] ([facility]) Escitalopram 10 MG Oral Tablet [Lexapro] [facility] ([facility]) Metronidazole 500 MG Oral Tablet [place] ([facility]) Permethrin 10 MG/ML Medicated Shampoo [place] ([facility]) Escitalopram 20 MG Oral Tablet [place] ([facility]) Escitalopram 10 MG Oral Tablet [place] ([facility]) Azithromycin 500 MG Oral Tablet [place] ([facility]) Metronidazole 500 MG Oral Tablet [place] ([facility]) Escitalopram 10 MG Oral Tablet [place] ([facility]) Azithromycin 500 MG Oral Tablet [place] ([facility]) Metronidazole 500 MG Oral Tablet [place] ([facility]) Azithromycin 500 MG Oral Tablet [place] ([facility])
[2021-01-25 20:41] VITALS: BP 128/64
--- OUTSIDE RECORDS SUMMARY | 2021-01-25 20:45 | CCD ---
Author Author [facility] Organization [facility] Address Unknown Phone Unavailable Support Name Relationship Address Phone [place] [address] PRAKASHSOHAIL Lundberg [place] [address] DYLON YOVANNY Next Of Kin Unknown SHELLI SHAW Next Of Kin [id number] [place] [address] IESHA HARVEY Next Of Kin [address] [place] [address] ANGELA STORY Next Of Kin [address] [place] [id number] LOWSUSY Next Of Kin [phone] [facility] [address] [place] [address] [place] Next Of Kin [address] [place] [address] Laura Wahtley Next Of Kin [address] [place] [id number] UE Next Of Kin Unknown Unavailable ANGELA GALAN Next Of Kin [address] [place] [id number] Evie Whatley Next Of Kin [address] [place] [phone] [facility] Next Of Kin [address] [place] [address] [facility] Next Of Kin [address] [facility] [place] [address] Next Of Kin Unknown Unavailable CARA WALLS Next Of Kin [id number] [place] [address] ANGELA GALAN ECON [address] [place] [address] Unavailable IESHA HARVEY ECON [address] [place] [address] Unavailable Cara Brunson ECON [address] [place] [address] [phone] [place] Hai Heidi ECON [address] [place] [address] Care Team Providers Care Outboard Motor Inspector Name Role Phone NO, PCP Unavailable Unavailable [place], J Pham PA Unavailable Unavailable [place], J Pham PA Unavailable Unavailable [place], J Pham PA Unavailable Unavailable [place], J Pham PA Unavailable Unavailable [place], J Pham PA Unavailable Unavailable [place], J Pham PA Unavailable Unavailable [place], J Pham PA Unavailable Unavailable [place], J Pham PA Unavailable Unavailable [place], J Pham PA Unavailable Unavailable [place], J Pham PA Unavailable Unavailable [place], J Pham PA Unavailable Unavailable [place], J Pham PA Unavailable Unavailable [place], J Pham PA Unavailable Unavailable [place], J Pham PA Unavailable Unavailable [place], J Pham PA Unavailable Unavailable [place], J Pham PA Unavailable Unavailable [place], J Pham PA Unavailable Unavailable [place], J Pham PA Unavailable Unavailable [place], J Pham PA Unavailable Unavailable [place], J Pham PA Unavailable Unavailable [place], J Pham PA Unavailable Unavailable [place], J Pham PA Unavailable Unavailable Heidi Head Unavailable [phone] Green CLAY ARTIST CLAY ARTIST, Vikki Unavailable Unavailable Green CLAY ARTIST CLAY ARTIST, Vikki Unavailable Unavailable Green CLAY ARTIST CLAY ARTIST, Vikki Unavailable Unavailable Green CLAY ARTIST CLAY ARTIST, Vikki Unavailable Unavailable Green CLAY ARTIST CLAY ARTIST, Vikki Unavailable Unavailable Jeffrey Moore MD Unavailable Unavailable eJffrey Moore MD Unavailable Unavailable Jeffrey Moore MD [...] Unavailable Oscar, A Eliza JONES Unavailable Unavailable Osacr, A Eliza JONES Unavailable Unavailable Oscar, A [...] Jeffrey Kay MD Unavailable Unavailable Oscar, Jeffrey Silvaen MD Unavailable Unavailable Jeffrey Moore MD Unavailable Unavailable Jeffrey Moore MD Unavailable Unavailable Jeffrey Moore MD Unavailable Unavailable Amaris WATERMAN MD Unavailable [...] M Kassie PA Unavailable Unavailable Scordo, M Kassei PA Unavailable Unavailable Scordo, M Kassie PA [...] TABITHA, MAQBOOL STEVEN MD Unavailable Unavailable TABITHA, MAVLADISLAV RODRIGUEZ MD Unavailable Unavailable TABITHA, SUHAILQBOMELINDA RODRIGUEZ MD Unavailable Unavailable TABITHA, MAQBOOL STEVEN MD Unavailable Unavailable TABITHA, MAQBOOL STEVEN MD Unavailable Unavailable TABITHA, MAQBOOL STEVEN MD Unavailable Unavailable TABITHA, MAQBOOL STEVEN MD Unavailable Unavailable TABITHA, MAQBOOL STEVEN MD Unavailable Unavailable TABITHA, MAQBOOL STEVEN MD Unavailable Unavailable TABITHA, MAQBOMELINDA RODRIGUEZ MD Unavailable Unavailable SALVADOR, L MAIRA MD [...] M Kassie PA Unavailable Unavailable Scordo, M Ksasie PA Unavailable Unavailable Scordo, M Kassie PA Unavailable Unavailable Scordo, M Kassie PA Unavailable Unavailable Scordo, M Kassie PA Unavailable Unavailable Scordo, M Kassie PA Unavailable Unavailable Scordo, M Kassei PA Unavailable Unavailable Scordo, M Kassie PA [...] M Kassie PA Unavailable Unavailable Veley, Donna CLAY ARTIST Unavailable Unavailable Veley, Donna CLAY ARTIST Unavailable Unavailable Veley, Donna CLAY ARTIST Unavailable Unavailable Veley, Donna CLAY ARTIST Unavailable Unavailable Veley, Donna CLAY ARTIST Unavailable Unavailable Veley, Donna CLAY ARTIST Unavailable Unavailable Veley, Donna CLAY ARTIST Unavailable Unavailable Veley, Donna CLAY ARTIST Unavailable Unavailable Veley, Donna CLAY ARTIST Unavailable Unavailable Veley, Donna CLAY ARTIST Unavailable Unavailable Veley, Donna CLAY ARTIST Unavailable Unavailable Veley, Donna CLAY ARTIST Unavailable Unavailable Veley, Donna CLAY ARTIST Unavailable Unavailable Veley, Donna CLAY ARTIST Unavailable Unavailable Veley, Donna CLAY ARTIST Unavailable Unavailable Veley, Donna CLAY ARTIST Unavailable Unavailable Veley, Donna CLAY ARTIST Unavailable Unavailable Veley, Donna CLAY ARTIST Unavailable Unavailable Veley, Donna CLAY ARTIST Unavailable Unavailable Veley, Donna CLAY ARTIST Unavailable Unavailable Veley, Donna CLAY ARTIST Unavailable Unavailable Veley, Donna CLAY ARTIST Unavailable Unavailable Veley, Donna CLAY ARTIST Unavailable Unavailable Veley, Dnona CLAY ARTIST Unavailable Unavailable Veley, Donna CLAY ARTIST Unavailable Unavailable Veley, Donna CLAY ARTIST Unavailable Unavailable Veley, Donna CLAY ARTIST Unavailable Unavailable Veley, Donna CLAY ARTIST Unavailable Unavailable Veley, Donna CLAY ARTIST Unavailable Unavailable Veley, Donna CLAY ARTIST Unavailable Unavailable Veley, Donna CLAY ARTIST Unavailable Unavailable Veley, Donna CLAY ARTIST Unavailable Unavailable Veley, Donna CLAY ARTIST Unavailable Unavailable Veley, Donna CLAY ARTIST Unavailable Unavailable Veley, Donna CLAY ARTIST Unavailable Unavailable Derwent-Pacheco, Kristy CNM Unavailable Unavailab le Derwent-Pacheco, Kristy CNM Unavailable Unavailab le Danyelle-Pacheco, Kristy CNM Unavailable Unavailab le Danyelle-Pacheco, Kristy CNM Unavailable Unavailab le Danyelle-Pacheco, Kristy CNM Unavailable Unavailab le Derwent-Pacheco, Kristy CNM Unavailable Unavailab le Re-disclosure Warning [...] is protected by Article 27-F of the [facility] Public Health law. If you continue you may have access to information: Regarding HIV / AIDS; Provided by facilities licensed or operated by the [facility] Office of Mental Health; or Provided by the [facility] Office for People With Developmental Disabilities. If such information is present, then the following [facility] mandated warning applies: This information has been [...] ES NKDA - NO KNOWN DRUG ALLERGIES [facility] Allergy to substance Allergy to substance Allergy to substance [facility]LA ([facility]) Family History Family Member Name Family Member Gender Family Member Status Date o f Status Description Data Source(s) Unknown Female Diagnosis 06/01/2018 12:00:00 AM EST [facility] ([facility]) Unknown Female Diagnosis 11/23/2017 12:00:00 AM EDT [facility] ([facility]) Encounters Encounter Providers Location Date Indications Data Source(s ) Heidi Head LMSW: [address], [place] [address], Ph. Attender: Heidi Head [facility] Medical 10/31/2020 12:00:00 AM EDT [facility]) Kassie Frias PA-C: [address], [place] [address], Ph. Attender: Kassie REARDON [facility] Medical 10/29/2020 12:00:00 AM EDT [facility]) Kassie Frias PA-C: [address], [place] [address], Ph. Attender: Kassie REARDON [facility] Medical 10/29/2020 12:00:00 AM EDT TRAM ([facility]) Heidi Head LMSW: [address], [place] [address], Ph. Attender: Heidi Head [facility] Medical 10/11/2020 12:00:00 AM EDT TRAM ([facility]) Heidi Head LMSW: [address], [place] [address], Ph. Attender: Heidi Head [facility] Medical 10/11/2020 12:00:00 AM EDT [facility]) Heidi Head LMSW: [address], [place] [address], Ph. Attender: Heidi Head [facility] Medical 10/11/2020 12:00:00 AM EDT TRAM ([facility]) OutpatientOFFICE VISIT, EST Attender: Phuong REARDON [facility] [place] 09/23/2020 07:45:00 AM EDT - 09/23/2020 07:45:00 AM EDT Encounter for test, result negativeOther sex counselingEncounter for oth general cnsl and advice on procreation [facility]Gen ([facility]) Encounter for test, result neg ative Other sex counseling Encounter for oth general cnsl and advic e on procreation [facility] [address], [place] [address], Ph. Attender: Heidi Head [facility] Medical 09/23/2020 12:00:00 AM EDT [facility] [address], [place] [address], Ph. Attender: Heidi Head [facility] Medical 09/23/2020 12:00:00 AM EDT [facility] [address], [place] [address], Ph. Attender: Heidi Head [facility] Medical 09/23/2020 12:00:00 AM EDT TRAM ([facility]) [facility] [address], [place] [address], Ph. Attender: Heidi Head [facility] Medical 09/23/2020 12:00:00 AM EDT [facility]) Kassie Frias PA-C: [address], [place] [address], Ph. Attender: Kassie REARDON [facility] Medical 09/18/2020 12:00:00 AM EDT TRAM ([facility]) Kassie Frias PA-C: [address], [facility] [place] [address], Ph. Attender: Kassie REARDON [facility] Medical 09/18/2020 12:00:00 AM EDT TRAM ([facility]) Kassie Frias PA-C: [address], [place] [address], Ph. Attender: Kassie REARDON [facility] Medical 09/18/2020 12:00:00 AM EDT TRAM ([facility]) Kassie Frias PA-C: [address], [facility] [place] [address], Ph. Attender: Kassie REARDON [facility] Medical 09/18/2020 12:00:00 AM EDT TRAM ([facility]) Kassie Frias PA-C: [address], [facility] [place] [address], Ph. Attender: Kassie REARDON [facility] Medical 09/18/2020 12:00:00 AM EDT TRAM ([facility]) Heidi Head LMSW: [address], [place] [address], Ph. Attender: Heidi Head [facility] Medical 08/22/2020 12:00:00 AM EDT TRAM ([facility]) Heidi Head LMSW: [address], [place] [address], Ph. Attender: Heidi Head [facility] Medical 08/22/2020 12:00:00 AM EDT ESTHELA ([facility]) Heidi Head, [facility]: [address], [place] [address], Ph. Attender: Heidi Head [facility] Medical 08/22/2020 12:00:00 AM EDT ESTHELA ([facility]) Heidi Head, [facility]: [address], [place] [address], Ph. Attender: Heidi Head [facility] Medical 08/22/2020 12:00:00 AM EDT TRAM ([facility]) Heidi Head, [facility]: [address], [place] [address], Ph. Attender: Heidi Head [facility] Medical 08/22/2020 12:00:00 AM EDT TRAM ([facility]) Heidi Head, [facility]: [address], [place] [address], Ph. Attender: Heidi Head [facility] Medical 08/22/2020 12:00:00 AM EDT TRAM ([facility]) Heidi Head, [facility]: [address], [place] [address], Ph. Attender: Heidi Head [facility] Medical 08/22/2020 12:00:00 AM EDT TRAM ([facility]) Kassie Frias PA-C: [address], [place] [address], Ph. Attender: Kassie REARDON [facility] 08/19/2020 12:00:00 AM EDT TRAM ([facility]) Kassie Frias PA-C: [address], [place] [address], Ph. Attender: Kassie REARDON [facility] Medical 08/19/2020 12:00:00 AM EDT TRAM ([facility]) Kassie Frias PA-C: [address], [place] [address], Ph. Attender: Kassie REARDNO [facility] Medical 08/19/2020 12:00:00 AM EDT ESTHELA ([facility]) Kassie Frias PA-C: [address], [place] [address], Ph. Attender: Kassie REARDON [facility] Medical 08/19/2020 12:00:00 AM EDT ESTHELA ([facility]) Kassie Frias PA-C: [address], [place] [address], Ph. Attender: Kassie REARDON [facility] Medical 08/19/2020 12:00:00 AM EDT TRAM ([facility]) Kassie Frias PA-C: [address], [place] [address], Ph. Attender: Kassie REARDON [facility] Medical 08/19/2020 12:00:00 AM EDT ESTHELA ([facility]) Kassie Frias PA-C: [address], [place] [address], Ph. Attender: Kassie REARDON [facility] Medical 08/19/2020 12:00:00 AM EDT ESTHELA ([facility]) Kassie Frias PA-C: [address], [place] [address], Ph. Attender: Kassie REARDON [facility] Medical 08/19/2020 12:00:00 AM EDT TRAM ([facility]) Kassie Frias PA-C: [address], [place] [address], Ph. Attender: Kassie REARDON [facility] Medical 08/19/2020 12:00:00 AM EDT TRAM ([facility]) [facility] 10:16[facility]00 AM EDT - 07/10/2020 10:16:00 AM EDT [facility] ([facility]) Heidi Head, [facility]: [address] [place] [address], Ph. Attender: Heidi Head [facility] Medical 07/09/2020 12:00:00 AM EDT ESTHELA ([facility]) Heidi Head [facility]: [address] [place] [address], Ph. Attender: Heidi Head [facility] Medical 07/09/2020 12:00:00 AM EDT ESTHELA ([facility]) Heidi Head [facility]: [address], [place] [address], Ph. Attender: Heidi Head [facility] Medical 07/09/2020 12:00:00 AM EDT TRAM ([facility]) Heidi Head [facility]: [address], [place] [address], Ph. Attender: Heidi Head [facility] Medical 07/09/2020 12:00:00 AM EDT [facility]) Heidi Head, [facility]: [address] [place] [address], Ph. Attender: Heidi Head [facility] Medical 07/09/2020 12:00:00 AM EDT [facility]) Heidi Head, [facility]: [address] [place] [address], Ph. Attender: Heidi Head [facility] Medical 07/09/2020 12:00:00 AM EDT [facility]) Heidi Head [facility]: [address], [place] [address], Ph. Attender: Heidi Head [facility] Medical 07/09/2020 12:00:00 AM EDT [facility]) Heidi Head, [facility]: [address] [place] [address], Ph. Attender: Heidi Head [facility] Medical 07/09/2020 12:00:00 AM EDT [facility]) [facility] [address] [place] [address], Ph. Attender: Heidi Head [facility] Medical 07/09/2020 12:00:00 AM EDT [facility]) OutpatientOFFICE VISIT, EST Attender: Vikki Galindo NP CLAY ARTIST [facility] 07/08/2020 01:00:00 PM EDT - 07/08/2020 01:00:00 PM EDT Other sex counselingEncntr screen for infections w sexl mode of transmissEncounter for oth general cnsl and advice on procreationEncounter for oth general cnsl and advice on contraceptionEncounter for test, result negativeHuman immunodeficiency virus [HIV] counseling NextGen ([facility]) Other sex counseling Encntr screen for infections w sexl mode of transmiss Encounter for oth general cnsl and advic e on procreation Encounter for oth general cnsl and advic e on contraception Encounter for test, result neg ative Human immunodeficiency virus [HIV] couns jaylonkarissa Frias PA-C: [address], [place] [address], Ph. Attender: Kassie REARDON [facility] Medical 06/27/2020 12:00:00 AM EDT [facility]) Kassie Frias PA-C: [address], [place] [address], Ph. Attender: Kassie REARDON [facility] Medical 06/27/2020 12:00:00 AM EDT [facility]) Kassie Frias PA-C: [address], [place] [address], Ph. Attender: Kassie REARDON [facility] Medical 06/27/2020 12:00:00 AM EDT TRAM ([facility]) Kassie Frias PA-C: [address], [place] [address], Ph. Attender: Kassie REARDON [facility] Medical 06/27/2020 12:00:00 AM EDT TRAM ([facility]) Kassie Frias PA-C: [address], [place] [address], Ph. Attender: Kassie REARDON [facility] Medical 06/27/2020 12:00:00 AM EDT [facility]) Kassie Frias PA-C: [address], [place] [address], Ph. Attender: Kassie REARDON [facility] Medical 06/27/2020 12:00:00 AM EDT TRAM ([facility]) Kassie Frias PA-C: [address], [place] [address], Ph. Attender: Kassie REARDON [facility] Medical 06/27/2020 12:00:00 AM EDT TRAM ([facility]) Kassie Frias PA-C: [address], [place] [address], Ph. Attender: Kassie REARDON [facility] Medical 06/27/2020 12:00:00 AM EDT TRAM ([facility]) Kassie Frias PA-C: [address], [place] [address], Ph. Attender: Kassie REARDON [facility] Medical 06/27/2020 12:00:00 AM EDT TRAM ([facility]) Kassie Frias PA-C: [address], [facility] [place] [address], Ph. Attender: Kassie REARDON [facility] Medical 06/27/2020 12:00:00 AM EDT TRAM ([facility]) Attender: Vikki Galindo NP CLAY ARTIST [facility]NCNY Shayla 0 06/14/2020 12:45:00 PM EDT - 06/14/2020 12:45:00 PM EDT NextGen ([facility]) Outpatient Attender: Darlene REARDON 021 03:16:56 PM EST - 05/30/2020 03:59:14 PM EST DocuTap ([facility] ) Kassie Frias PA-C: [address], [place] [address], Ph. Attender: Kassie REARDON [facility] Medical 05/24/2020 12:00:00 AM EST ESTHELA ([facility]) Kassie Frias PA-C: [address], [place] [address], Ph. Attender: Kassie REARDON [facility] Medical 05/24/2020 12:00:00 AM EST ESTHELA ([facility]) Kassie Frias PA-C: [address], [place] [address], Ph. Attender: Kassie REARDON [facility] Medical 05/24/2020 12:00:00 AM EST ESTHELA ([facility]) Kassie Frias PA-C: [address], [place] [address], Ph. Attender: Kassie REARDON [facility] Medical 05/24/2020 12:00:00 AM EST ESTHELA ([facility]) Kassie Frias PA-C: [address], [place] [address], Ph. Attender: Kassie REARDON [facility] Medical 05/24/2020 12:00:00 AM EST ESTHELA ([facility]) Kassie Frias PA-C: [address], [place] [address], Ph. Attender: Kassie REARDON [facility] Medical 05/24/2020 12:00:00 AM EST ESTHELA ([facility]) Kassie Frias PA-C: [address], [place] [address], Ph. Attender: Kassie REARDON [facility] Medical 05/24/2020 12:00:00 AM EST ESTHELA ([facility]) Kassie Frias PA-C: [address], [place] [address], Ph. Attender: Kassie REARDON [facility] Medical 05/24/2020 12:00:00 AM EST ESTHELA ([facility]) Kassie Frias PA-C: [address], [place] [address], Ph. Attender: Kassie REARDON [facility] Medical 05/24/2020 12:00:00 AM EST ESTHELA ([facility]) Kassie Frias PA-C: [address], [facility] [place] [address], Ph. Attender: Kassie REARDON [facility] Medical 05/24/2020 12:00:00 AM EST ESTHELA ([facility]) Kassie Frias PA-C: [address], [place] [address], Ph. Attender: Kassie REARDON [facility] Medical 05/24/2020 12:00:00 AM EST ESTHELA ([facility]) Kassie Frias PA-C: [address], [place] [address], Ph. Attender: Kassie REARDON [facility] Medical 04/16/2020 12:00:00 AM EST ESTHELA ([facility]) Kassie Frias PA-C: [address], [place] [address], Ph. Attender: Kassie REARDON [facility] Medical 04/16/2020 12:00:00 AM EST ESTHELA ([facility]) Kassie Frias PA-C: [address], [address], [place] [address], Ph. Attender: Kassie REARDON [facility] Medical 04/16/2020 12:00:00 AM EST ESTHELA ([facility]) Kassie Frias PA-C: [address], [address], [place] [address], Ph. Attender: Kassie REARDON [facility] Medical 04/16/2020 12:00:00 AM EST ESTHELA ([facility]) Kassie Frias PA-C: [address], [place] [address], Ph. Attender: Kassie REARDON [facility] Medical 04/16/2020 12:00:00 AM EST [place]HELA ([facility]) Kassie Frias PA-C: [address], [place] [address], Ph. Attender: Kassie REARDON [facility] Medical 04/16/2020 12:00:00 AM EST ESTHELA ([facility]) Kassie Frias PA-C: [address], [place] [address], Ph. Attender: Kassie REARDON [facility] Medical 04/16/2020 12:00:00 AM EST ESTHELA ([facility]) VERONICA AlbaC: [address], [place] [address], Ph. Attender: Kassie REARDON [facility] Medical 04/16/2020 12:00:00 AM EST ESTHELA ([facility]) VERONICA AlbaC: [address], [place] [address], Ph. Attender: Kassie REARDON [facility] Medical 04/16/2020 12:00:00 AM EST ESTHELA ([facility]) Kassie Frias PA-C: [address], [place] [address], Ph. Attender: Kassie REARDON [facility] Medical 04/16/2020 12:00:00 AM EST ESTHELA ([facility]) Kassie Frias PA-C: [address], [place] [address], Ph. Attender: Kassie REARDON [facility] Medical 04/16/2020 12:00:00 AM EST ESTHELA ([facility]) VERONICA AlbaC: [address], [place] [address], Ph. Attender: Kassie REARDON [facility] Medical 04/16/2020 12:00:00 AM EST ESTHELA ([facility]) OFFICE VISIT, ESTOutpatient Attender: Phuong REARDON [facility] [place] 04/09/2020 02:30:00 PM EST - 04/09/2020 02:30:00 PM EST Encounter for test, result negativeContact w and exposure to infect w a sexl mode of transmissEncounter for oth general cnsl and advice on procreationEncounter for oth general cnsl and advice on contraceptionOther sex counselingEncntr screen for infections w sexl mode of transmiss NextGen ([facility]) Encounter for test, result neg ative Contact w and exposure to infect w a sex l mode of transmiss Encounter for oth general cnsl and advic e on procreation Encounter for oth general cnsl and advic e on contraception Other sex counseling Encntr screen for infections w sexl mode of transmiss Kassie Frias PA-C: [address], [place] [address], Ph. Attender: Kassie REARDON [facility] Medical 03/15/2020 12:00:00 AM EST ESTHELA ([facility]) Kassie Frias PA-C: [address], [place] [address], Ph. Attender: Kassie REARDON [facility] Medical 03/15/2020 12:00:00 AM EST ESTHELA ([facility]) Kassie Frias PA-C: [address], [place] [address], Ph. Attender: Kassie REARDON [facility] Medical 03/15/2020 12:00:00 AM EST ESTHELA ([facility]) Kassie Frias PA-C: [address], [place] [address], Ph. Attender: Kassie REARDON [facility] Medical 03/15/2020 12:00:00 AM EST ESTHELA ([facility]) Kassie Frias PA-C: [address], [place] [address], Ph. Attender: Kassie REARDON [facility] Medical 03/15/2020 12:00:00 AM EST ESTHELA ([facility]) Kassie Frias PA-C: [address], [place] [address], Ph. Attender: Kassie REARDON [facility] Medical 03/15/2020 12:00:00 AM EST ESTHELA ([facility]) Kassie Frias PA-C: [address], [place] [address], Ph. Attender: Kassie REARDON [facility] Medical 03/15/2020 12:00:00 AM EST ESTHELA ([facility]) Kassie Frias PA-C: [address], [place] [address], Ph. Attender: Kassie REARDON [facility] Medical 03/15/2020 12:00:00 AM EST ESTHELA ([facility]) Kassie Frias PA-C: [address], [place] [address], Ph. Attender: Kassie REARDON [facility] Medical 03/15/2020 12:00:00 AM EST ESTHELA ([facility]) Kassie Frias PA-C: [address], [place] [address], Ph. Attender: Kassie REARDON [facility] Medical 03/15/2020 12:00:00 AM EST ESTHELA ([facility]) Kassie Frias PA-C: [address], [place] [address], Ph. Attender: Kassie REARDON [facility] Medical 03/15/2020 12:00:00 AM EST ESTHELA ([facility]) Kassie Frias PA-C: [address] , [place] [address], Ph. Attender: aKssie REARDON [facility] Medical 03/15/2020 12:00:00 AM EST ESTHELA ([facility]) Kassie Frias PA-C: [address], [place] [address], Ph. Attender: Kassie REARDON [facility] Medical 03/15/2020 12:00:00 AM EST ESTHELA ([facility]) Outpatient Attender: STEVEN Cazares beryl: JUAN WATERMAN MDConsultant: Kassie REARDON 03/08/2020 08:20:00 PM EST - 03/10/2020 01:10:00 PM EST [facility] Patient discharged. Attender: Eliza Mcguire 12/2019 01:43:00 PM EST - 03/07/2020 01:43:00 PM EST [facility] ([facility]) Attender: Pham Mcguire 04/2019 10:06:00 AM EST - 02/28/2020 10:06:00 AM EST [facility] ([facility]) Attender: Pham Mcguire 03/2019 09:34:00 AM EST - 02/27/2020 09:34:00 AM EST [facility] ([facility]) OutpatientOFFICE VISIT, EST Attender: Pham kaye 02/21/2020 12:30:00 PM EST - 02/21/2020 12:30:00 PM EST Encounter for other specified special examinationsEncounter for oth general cnsl and advice on contraceptionOther sex counselingEncounter for test, result negative NextGen ([facility]) Encounter for other specified special ex aminations Encounter for oth general cnsl and advic e on contraception Other sex counseling Encounter for test, result neg ative Emergency Attender: MAIRA SAUCEDA MDConsultant: PCP NO 02/18/2020 02:15:00 AM EST - 02/18/2020 04:15:00 AM EST [facility] Patient discharged. Kassie Frias PA-C: [address], [place] [address], Ph. Attender: Kassie REARDON [facility] Medical 02/01/2020 12:00:00 AM EST ESTHELA ([facility]) Kassie Frias PA-C: [address], [place] [address], Ph. Attender: Kassie REARDON [facility] Medical 02/01/2020 12:00:00 AM EST ESTHELA ([facility]) Kassie Frias PA-C: [address], [place] [address], Ph. Attender: Kassie REARDON [facility] Medical 02/01/2020 12:00:00 AM EST ESTHELA ([facility]) Kassie Frias PA-C: [address], [place] [address], Ph. Attender: Kassie REARDON [facility] Medical 02/01/2020 12:00:00 AM EST ESTHELA ([facility]) Kassie Frias PA-C: [address], [place] [address], Ph. Attender: Kassie REARDON [facility] Medical 02/01/2020 12:00:00 AM EST ESTHELA ([facility]) Kassie Frias PA-C: [address], [place] [address], Ph. Attender: Kassie REARDON [facility] Medical 02/01/2020 12:00:00 AM EST ESTHELA ([facility]) Kassie Frias PA-C: [address], [place] [address], Ph. Attender: Kassie REARDON [facility] Medical 02/01/2020 12:00:00 AM EST ESTHELA ([facility]) Kassie Frias PA-C: [address], [place] [address], Ph. Attender: Kassie REARDON [facility] Medical 02/01/2020 12:00:00 AM EST ESTHELA ([facility]) Kassie Frias PA-C: [address], [place] [address], Ph. Attender: Kassie REARDON [facility] Medical 02/01/2020 12:00:00 AM EST ESTHELA ([facility]) Kassie Frias PA-C: [address], [place] [address], Ph. Attender: Kassie REARDON [facility] Medical 02/01/2020 12:00:00 AM EST ESTHELA ([facility]) Kassie Frias PA-C: [address], [place] [address], Ph. Attender: Kassie REARDON [facility] Medical 02/01/2020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 Anxiety Problem 04/17/2020 12:0 0:00 AM EST - 05/24/2020 12:00:00 AM EST [facility] ([facility]) 191207932 History of chlamydial infection History of Chlam ydial Infection Problem 04/17/2020 12:00:00 AM EST [facility] ([facility]) 05867823 Cyst of ovary Cyst of Ovary Problem 04/17/2020 12:00:00 AM EST [facility] ([facility]) 24221503 Depressive disorder Depressive Disorder Problem 0 04/17/2020 12:00:00 AM EST [facility] ([facility]) 08246857 Anxiety Anxiety Problem 04/17/2020 12:0 0:00 AM EST - 05/24/2020 12:00:00 AM EST [facility] ([facility]) 596486584 History of chlamydial infection History of Chlam ydial Infection Problem 04/17/2020 12:00:00 AM EST [facility] ([facility]) 46675867 Cyst of ovary Cyst of Ovary Problem 04/17/2020 12:00:00 AM EST [facility] ([facility]) 10165526 Depressive disorder Depressive Disorder Problem 0 04/17/2020 12:00:00 AM EST [facility] ([facility]) 94766901 Anxiety Anxiety Problem 04/17/2020 12:0 0:00 AM EST - 05/24/2020 12:00:00 AM EST [facility] ([facility]) 629543329 History of chlamydial infection History of Chlam ydial Infection Problem 04/17/2020 12:00:00 AM EST [facility] ([facility]) 16155253 Cyst of ovary Cyst of Ovary Problem 04/17/2020 12:00:00 AM EST [facility] ([facility]) 98760797 Depressive disorder Depressive Disorder Problem 0 04/17/2020 12:00:00 AM EST [facility] ([facility]) 76616114 Anxiety Anxiety Problem 04/17/2020 12:0 0:00 AM EST - 05/24/2020 12:00:00 AM EST [facility] ([facility]) 300.02 Generalized anxiety disorder Generalized anxiety disor bibiana 12/18/2019 02:53:32 PM EDT [facility] 05847078 Allergic rhinitis, unspecified Allergic rhinitis, unsp ecified 12/18/2019 02:53:32 PM EDT [facility] 253900484 Major depressive disorder, single episod e, unspecified Major depressive disorder, single episode, unspecified 12/18/2019 02:53:32 PM EDT [facility] 98703908 Allergic rhinitis Allergic Rhinitis Problem 12/18/2019 12:00:00 AM EDT TRAM ([facility]) 13066105 Generalized anxiety disorder Generalized Anxiety Disor bibiana Problem 12/18/2019 12:00:00 AM EDT [facility] ([facility]) 99574684 Allergic rhinitis Allergic Rhinitis Problem 12/18/2019 12:00:00 AM EDT TRAM ([facility]) 43290812 Generalized anxiety disorder Generalized Anxiety Disor bibiana Problem 12/18/2019 12:00:00 AM EDT TRAM ([facility]) 99197693 Allergic rhinitis Allergic Rhinitis Problem 12/18/2019 12:00:00 AM EDT TRAM ([facility]) 36585100 Generalized anxiety disorder Generalized Anxiety Disor bibiana Problem 12/18/2019 12:00:00 AM EDT [facility] ([facility]) 40333537 Allergic rhinitis Allergic Rhinitis Problem 12/18/2019 12:00:00 AM EDT TRAM ([facility]) 78700899 Generalized anxiety disorder Generalized Anxiety Disor bibiana Problem 12/18/2019 12:00:00 AM EDT [facility] ([facility]) 49310270 Allergic rhinitis Allergic Rhinitis Problem 12/18/2019 12:00:00 AM EDT [facility] ([facility]) 17364573 Generalized anxiety disorder Generalized Anxiety Disor bibiana Problem 12/18/2019 12:00:00 AM EDT [facility] ([facility]) 27317186 Allergic rhinitis Allergic Rhinitis Problem 12/18/2019 12:00:00 AM EDT [facility] ([facility]) 36553360 Generalized anxiety disorder Generalized Anxiety Disor bibiana Problem 12/18/2019 12:00:00 AM EDT [facility] ([facility]) 83550939 Allergic rhinitis Allergic Rhinitis Problem 12/18/2019 12:00:00 AM EDT [facility] ([facility]) 76133791 Generalized anxiety disorder Generalized Anxiety Disor bibiana Problem 12/18/2019 12:00:00 AM EDT [facility] ([facility]) 22029511 Allergic rhinitis Allergic Rhinitis Problem 12/18/2019 12:00:00 AM EDT [facility] ([facility]) 42481390 Generalized anxiety disorder Generalized Anxiety Disor bibiana Problem 12/18/2019 12:00:00 AM EDT [facility] ([facility]) 21577102 Allergic rhinitis Allergic Rhinitis Problem 12/18/2019 12:00:00 AM EDT [facility] ([facility]) 74897536 Generalized anxiety disorder Generalized Anxiety Disor bibiana Problem 12/18/2019 12:00:00 AM EDT [facility] ([facility]) 69656053 Allergic rhinitis Allergic Rhinitis Problem 12/18/2019 12:00:00 AM EDT [facility] ([facility]) 50589725 Generalized anxiety disorder Generalized Anxiety Disor bibiana Problem 12/18/2019 12:00:00 AM EDT [facility] ([facility]) 35861150 Allergic rhinitis Allergic Rhinitis Problem 12/18/2019 12:00:00 AM EDT [facility] ([facility]) 66833569 Generalized anxiety disorder Generalized Anxiety Disor bibiana Problem 12/18/2019 12:00:00 AM EDT [facility] ([facility]) 553314735 SNOMED CT Concept SNOMED CT Concept Problem 02/24 12:00:00 AM EST - 02/01/2020 12:00:00 AM EST [facility] ([facility]) 348297541 SNOMED CT Concept SNOMED CT Concept Problem 02/24 12:00:00 AM EST - 02/01/2020 12:00:00 AM EST [facility] ([facility]) 063853095 SNOMED CT Concept SNOMED CT Concept Problem 02/24 12:00:00 AM EST - 02/01/2020 12:00:00 AM EST [facility] ([facility]) 072560272 SNOMED CT Concept SNOMED CT Concept Problem 02/24 12:00:00 AM EST - 02/01/2020 12:00:00 AM EST [facility] ([facility]) 294492193 SNOMED CT Concept SNOMED CT Concept Problem 02/24 12:00:00 AM EST - 02/01/2020 12:00:00 AM EST [facility] ([facility]) 742941635 SNOMED CT Concept SNOMED CT Concept Problem 02/24 12:00:00 AM EST - 02/01/2020 12:00:00 AM EST [facility] ([facility]) 921762348 SNOMED CT Concept SNOMED CT Concept Problem 02/24 12:00:00 AM EST - 02/01/2020 12:00:00 AM EST [facility] ([facility]) 308772931 SNOMED CT Concept SNOMED CT Concept Problem 02/24 12:00:00 AM EST - 02/01/2020 12:00:00 AM EST [facility] ([facility]) 712050115 SNOMED CT Concept SNOMED CT Concept Problem 02/24 12:00:00 AM EST - 02/01/2020 12:00:00 AM EST [facility] ([facility]) 120756567 SNOMED CT Concept SNOMED CT Concept Problem 02/24 12:00:00 AM EST - 02/01/2020 12:00:00 AM EST [facility] ([facility]) 969995607 SNOMED CT Concept SNOMED CT Concept Problem 02/24 12:00:00 AM EST - 02/01/2020 12:00:00 AM EST [facility] ([facility]) 327484633 SNOMED CT Concept SNOMED CT Concept Problem 02/24 12:00:00 AM EST - 02/01/2020 12:00:00 AM EST [facility] ([facility]) 808615561 SNOMED CT Concept SNOMED CT Concept Problem 02/24 12:00:00 AM EST - 02/01/2020 12:00:00 AM EST [facility] ([facility]) 442867439 SNOMED CT Concept SNOMED CT Concept Problem 02/24 12:00:00 AM EST - 02/01/2020 12:00:00 AM EST [facility] ([facility]) Surgeries/Procedures Procedure Description Date Indications Data Source(s) CVR Radio Time Sales Supervisor.Svc. STI / H 09/23/2020 12:00:00 AM EDT - 09/23/2020 12:00:00 AM EDT [facility] ([facility]) CVR Radio Time Sales Supervisor.Svc. Other 09/23/2020 12:00:00 AM EDT - 2020 12:00:00 AM EDT [facility] ([facility]) CVR Radio Time Sales Supervisor.Svc. Contraceptive 09/23/2020 12 :00:00 AM EDT - 09/23/2020 12:00:00 AM EDT [facility] ([facility]) CVR Med.Svc. Height/Weight 09/23/2020 12 :00:00 AM EDT - 09/23/2020 12:00:00 AM EDT [facility] ([facility]) CVR Blood Pressure 09/23/2020 12:00:00 AM EDT - 2020 12:00:00 AM EDT [facility] ([facility]) OFFICE VISIT, EST 09/23/2020 12:00:00 AM EDT - 2 021 12:00:00 AM EDT [facility] ([facility]) URINE TEST 09/23/2020 12:00:00 AM EDT - 09/23/2020 12:00:00 AM EDT [facility] ([facility]) CVR Radio Time Sales Supervisor.Svc. Other 07/08/2020 12:00:00 AM EDT - 2020 12:00:00 AM EDT [facility] ([facility]) CVR Med.Svc. Height/Weight 07/08/2020 12 :00:00 AM EDT - 07/08/2020 12:00:00 AM EDT [facility] ([facility]) CVR Blood Pressure 07/08/2020 12:00:00 AM EDT - 2020 12:00:00 AM EDT [facility] ([facility]) HCS Without Test 07/08/2020 12:00:00 AM EDT - 07/09/19 21 12:00:00 AM EDT [facility] ([facility]) N.GONORRHOEAE, URINE 07/08/2020 12:00:00 AM EDT - 07/08/2020 12:00:00 AM EDT [facility] ([facility]) CHYLMD TRACH, URINE 07/08/2020 12:00:00 AM EDT - 07/08 12:00:00 AM EDT [facility] ([facility]) OFFICE VISIT, EST 07/08/2020 12:00:00 AM EDT - 021 12:00:00 AM EDT [facility] ([facility]) URINE TEST 07/08/2020 12:00:00 AM EDT - 07/08/2020 12:00:00 AM EDT [facility] ([facility]) HEPATITIS C, RNA, AMP PROBE 04/09/2020 1 2:00:00 AM EST - 04/09/2020 12:00:00 AM EST [facility] ([facility]) SYPHILLIS BLOOD SEROLOGY, QUALITATIVE 12:00:00 AM EST - 04/09/2020 12:00:00 AM EST [facility] ([facility]) HTLV/HIV SERUM TEST 04/09/2020 12:00:00 AM EST - 04/09 12:00:00 AM EST [facility] ([facility]) CVR Radio Time Sales Supervisor.Svc. STI / H 04/09/2020 12:00:00 AM EST - 04/09/2020 12:00:00 AM EST [facility] ([facility]) CVR Radio Time Sales Supervisor.Svc. Other 04/09/2020 12:00:00 AM EST - 2020 12:00:00 AM EST [facility] ([facility]) CVR Med.Svc. Height/Weight 04/09/2020 12 :00:00 AM EST - 04/09/2020 12:00:00 AM EST [facility] ([facility]) CVR Blood Pressure 04/09/2020 12:00:00 AM EST - 2020 12:00:00 AM EST [facility] ([facility]) OFFICE VISIT, EST 04/09/2020 12:00:00 AM EST - 021 12:00:00 AM EST [facility] ([facility]) URINE TEST 04/09/2020 12:00:00 AM EST - 04/09/2020 12:00:00 AM EST [facility] ([facility]) ROUTINE VENIPUNCTURE 04/09/2020 12:00:00 AM EST - 04/09/2020 12:00:00 AM EST [facility] ([facility]) CVR Radio Time Sales Supervisor.Svc. STI / H 02/21/2020 12:00:00 AM EST - 02/21/2020 12:00:00 AM EST [facility] ([facility]) CVR Radio Time Sales Supervisor.Svc. Other 02/21/2020 12:00:00 AM EST - 2019 12:00:00 AM EST [facility] ([facility]) CVR Med.Svc. Height/Weight 02/21/2020 12 :00:00 AM EST - 02/21/2020 12:00:00 AM EST [facility] ([facility]) CVR Blood Pressure 02/21/2020 12:00:00 AM EST - 2019 12:00:00 AM EST [facility] ([facility]) OFFICE VISIT, EST 02/21/2020 12:00:00 AM EST - 020 12:00:00 AM EST [facility] ([facility]) CHORIONIC GONADOTROPIN TEST 02/21/2020 1 2:00:00 AM EST - 02/21/2020 12:00:00 AM EST [facility] ([facility]) ROUTINE VENIPUNCTURE 02/21/2020 12:00:00 AM EST - 02/21/2020 12:00:00 AM EST [facility] ([facility]) URINE TEST 02/21/2020 12:00:00 AM EST - 02/21/2020 12:00:00 AM EST [facility] ([facility]) CVR Radio Time Sales Supervisor.Svc. STI / H 12/06/2019 12:00:00 AM EDT - 12/06/2019 12:00:00 AM EDT [facility] ([facility]) CVR Radio Time Sales Supervisor.Svc. Other 12/06/2019 12:00:00 AM EDT - 2019 12:00:00 AM EDT [facility] ([facility]) CVR Radio Time Sales Supervisor.Svc. Contraceptive 12/06/2019 12 :00:00 AM EDT - 12/06/2019 12:00:00 AM EDT [facility] ([facility]) CVR Med.Svc. Emergency Contraception 11/2019 12:00:00 AM EDT - 12/06/2019 12:00:00 AM EDT [facility] ([facility]) CVR Med.Svc. Method Initiation 0 12:00:00 AM EDT - 12/06/2019 12:00:00 AM EDT [facility] ([facility]) CVR Med.Svc. Abdominal Palp. 12/06/2019 12:00:00 AM EDT - 12/06/2019 12:00:00 AM EDT [facility] ([facility]) CVR Med.Svc. Heart/Lung Ausc. 12/06/2019 12:00:00 AM EDT - 12/06/2019 12:00:00 AM EDT [facility] ([facility]) CVR Med.Svc. Height/Weight 12/06/2019 12 :00:00 AM EDT - 12/06/2019 12:00:00 AM EDT [facility] ([facility]) CVR Blood Pressure 12/06/2019 12:00:00 AM EDT - 2019 12:00:00 AM EDT [facility] ([facility]) N.GONORRHOEAE, URINE 12/06/2019 12:00:00 AM EDT - 12/06/2019 12:00:00 AM EDT [facility] ([facility]) CHYLMD TRACH, URINE 12/06/2019 12:00:00 AM EDT - 12/05 12:00:00 AM EDT [facility] ([facility]) HCS Without Test 12/06/2019 12:00:00 AM EDT - 12/06/19 20 12:00:00 AM EDT [facility] ([facility]) PREV VISIT, EST, AGE 18-39 12/06/2019 12 :00:00 AM EDT - 12/06/2019 12:00:00 AM EDT [facility] ([facility]) URINE TEST 12/06/2019 12:00:00 AM EDT - 12/06/2019 12:00:00 AM EDT [facility] ([facility]) Results ID Date Data Source [id number] 09/23/2020 07:54:04 AM EDT [facility] ([facility]) Name Value Range Interpretation Code Description Data Libia rce(s) Supporting Document(s) NegativeLot: [id number]: 03/28/2022 [facility] ID Date Data Source [id number] 08/19/2020 02:45:00 PM EDT [facility]) Name Value Range Interpretation Code Description Data Libia rce(s) Supporting Document(s) Hemoglobin A1c/Hemoglobin.total in Blood 4.6 % Hba1C [facility]) ID Date Data Source [id number] 08/19/2020 02:45:00 PM EDT [facility]) Name Value Range Interpretation Code Description Data Libia rce(s) Supporting Document(s) Hemoglobin A1c/Hemoglobin.total in Blood 4.6 % Hba1C [facility]) ID Date Data Source [id number] 08/19/2020 02:45:00 PM EDT [facility]) Name Value Range Interpretation Code Description Data Libia rce(s) Supporting Document(s) Hemoglobin A1c/Hemoglobin.total in Blood 4.6 % Hba1C [facility]) ID Date Data Source [id number] 08/19/2020 02:45:00 PM EDT [facility]) Name Value Range Interpretation Code Description Data Libia rce(s) Supporting Document(s) Hemoglobin A1c/Hemoglobin.total in Blood 4.6 % Hba1C [facility]) ID Date Data Source [id number] 08/19/2020 02:45:00 PM EDT [facility]) Name Value Range Interpretation Code Description Data Libia rce(s) Supporting Document(s) Hemoglobin A1c/Hemoglobin.total in Blood 4.6 % Hba1C [facility]) ID Date Data Source [id number] 08/19/2020 02:45:00 PM EDT [facility]) Name Value Range Interpretation Code Description Data Libia rce(s) Supporting Document(s) Hemoglobin A1c/Hemoglobin.total in Blood 4.6 % Hba1C [facility]) ID Date Data Source [id number] 08/19/2020 02:45:00 PM EDT [facility]) Name Value Range Interpretation Code Description Data Libia rce(s) Supporting Document(s) Hemoglobin A1c/Hemoglobin.total in Blood 4.6 % Hba1C [facility]) ID Date Data Source [id number] 08/19/2020 02:45:00 PM EDT [facility]) Name Value Range Interpretation Code Description Data Libia rce(s) Supporting Document(s) Hemoglobin A1c/Hemoglobin.total in Blood 4.6 % Hba1C [facility]) ID Date Data Source [id number] 08/19/2020 02:45:00 PM EDT [facility]) Name Value Range Interpretation Code Description Data Libia rce(s) Supporting Document(s) Hemoglobin A1c/Hemoglobin.total in Blood 4.6 % Hba1C [facility] ([facility]) ID Date Data Source [id number] 08/16/2020 09:38:00 PM EDT [facility] ([facility]) Name Value Range Interpretation Code Description Data Libia rce(s) Supporting Document(s) ID Date Data Source [id number] 08/16/2020 09:38:00 PM EDT [facility] ([facility]) Name Value Range Interpretation Code Description Data Libia rce(s) Supporting Document(s) amphetamines level urine negative negative Amphetamine s Level Urine [facility] ([facility]) barbiturates urine negative negative Barbiturates Urin e [facility] ([facility]) benzodiazepines urine negative negative Benzodiazepine s Urine [facility] ([facility]) cannabinoids urine positive negative Above high normal Cannabinoi ds Urine [facility] ([facility]) cocaine metabolite urine negative negative Cocaine Met abolite Urine [facility] ([facility]) methadone urine negative negative Methadone Urine [facility] ([facility]) opiates urine negative negative Opiates Urine [facility] ( [facility]) phencyclidine urine negative negative Phencyclidine Ur ine [facility] ([facility]) ID Date Data Source [id number] 08/16/2020 09:38:00 PM EDT [facility] ([facility]) Name Value Range Interpretation Code Description Data Libia rce(s) Supporting Document(s) appearance, urine rfx hazy clear Appearance, Ur ine Rfx [facility] ([facility]) pH,urine rfx 5.0 units 5.0-9.0 pH,urine Rfx [facility] ([facility]) color, urine rfx yellow yellow Color, Urine Rfx AT [facility] ([facility]) specific gravity ur auto rfx 1.002-1.035 Specif ic [place] Ur Auto Rfx [facility] ([facility]) glucose, urine (UA) auto rfx negative negative Glucose , Urine (UA) Auto Rfx [facility] ([facility]) protein, urine auto rfx negative negative Protein, Uri ne Auto Rfx [facility] ([facility]) ketone, urine auto rfx negative negative Ketone, Urine Auto Rfx [facility] ([facility]) bilirubin, urine auto rfx negative negative Bilirubin, Urine Auto Rfx [facility] ([facility]) urobilinogen, urine auto rfx 0.2 mg/dL 0.0-2.0 Urobili nogen, Urine Auto Rfx [facility] ([facility]) nitrite, urine auto rfx negative negative Nitrite, Uri ne Auto Rfx [facility] ([facility]) blood, urine blood rfx negative negative Blood, Urine Blood Rfx [facility] ([facility]) leukocyte esterase ur auto rfx trace negative Above high normal Leukocyte Esterase Ur Auto Rfx [place] ([facility]) WBC, urine auto rfx 1 /hpf 0-3 WBC, Urine Auto Rfx [place] ([facility]) RBC, urine auto rfx 1 /hpf 0-3 RBC, Urine Auto Rfx [facility] ([facility]) bacteria, urine auto rfx negative negative Bacteria, U rine Auto Rfx [facility] ([facility]) squam epithelial cell ur aurfx 2 /hpf 0-6 Squam Epithelial Cell Ur Aurfx [facility] ([facility]) mucus, urine rfx small negative Mucus, Urine Rfx AT [facility] ([facility]) hyaline cast, urine auto rfx 0 /lpf 0-1 Hyaline Cast, Urine Auto Rfx [facility] ([facility]) ID Date Data Source [id number] 08/16/2020 09:38:00 PM EDT [facility] ([facility]) Name Value Range Interpretation Code Description Data Libia rce(s) Supporting Document(s) ID Date Data Source [id number] 08/16/2020 09:38:00 PM EDT [facility] ([facility]) Name Value Range Interpretation Code Description Data Libia rce(s) Supporting Document(s) amphetamines level urine negative negative Amphetamine s Level Urine [facility] ([facility]) barbiturates urine negative negative Barbiturates Urin e [facility] ([facility]) benzodiazepines urine negative negative Benzodiazepine s Urine [facility] ([facility]) cocaine metabolite urine negative negative Cocaine Met abolite Urine [facility] ([facility]) cannabinoids urine positive negative Above high normal Cannabinoi ds Urine [facility] ([facility]) methadone urine negative negative Methadone Urine [facility] ([facility]) opiates urine negative negative Opiates Urine [facility] ( [facility]) phencyclidine urine negative negative Phencyclidine Ur ine [facility] ([facility]) ID Date Data Source [id number] 08/16/2020 09:38:00 PM EDT [facility] ([facility]) Name Value Range Interpretation Code Description Data Libia rce(s) Supporting Document(s) appearance, urine rfx hazy clear Appearance, Ur ine Rfx [facility] ([facility]) color, urine rfx yellow yellow Color, Urine Rfx AT [facility] ([facility]) pH,urine rfx 5.0 units 5.0-9.0 pH,urine Rfx [place] ([facility]) protein, urine auto rfx negative negative Protein, Uri ne Auto Rfx [facility] ([facility]) specific gravity ur auto rfx 1.002-1.035 Specif ic [place] Ur Auto Rfx [facility] ([facility]) ketone, urine auto rfx negative negative Ketone, Urine Auto Rfx [place] ([facility]) glucose, urine (UA) auto rfx negative negative Glucose , Urine (UA) Auto Rfx [place] ([facility]) urobilinogen, urine auto rfx 0.2 mg/dL 0.0-2.0 Urobili nogen, Urine Auto Rfx [facility] ([facility]) bilirubin, urine auto rfx negative negative Bilirubin, Urine Auto Rfx [facility] ([facility]) leukocyte esterase ur auto rfx trace negative Above high normal Leukocyte Esterase Ur Auto Rfx [facility] ([facility]) nitrite, urine auto rfx negative negative Nitrite, Uri ne Auto Rfx [facility] ([facility]) blood, urine blood rfx negative negative Blood, Urine Blood Rfx [facility] ([facility]) WBC, urine auto rfx 1 /hpf 0-3 WBC, Urine Auto Rfx [place] ([facility]) bacteria, urine auto rfx negative negative Bacteria, U rine Auto Rfx [place] ([facility]) RBC, urine auto rfx 1 /hpf 0-3 RBC, Urine Auto Rfx [facility] ([facility]) squam epithelial cell ur aurfx 2 /hpf 0-6 Squam Epithelial Cell Ur Aurfx [place] ([facility]) mucus, urine rfx small negative Mucus, Urine Rfx AT [facility] ([facility]) hyaline cast, urine auto rfx 0 /lpf 0-1 Hyaline Cast, Urine Auto Rfx [facility] ([facility]) ID Date Data Source [id number] 08/16/2020 09:38:00 PM EDT [facility] ([facility]) Name Value Range Interpretation Code Description Data Libia rce(s) Supporting Document(s) ID Date Data Source [id number] 08/16/2020 09:38:00 PM EDT [facility] ([facility]) Name Value Range Interpretation Code Description Data Libia rce(s) Supporting Document(s) amphetamines level urine negative negative Amphetamine s Level Urine [facility] ([facility]) barbiturates urine negative negative Barbiturates Urin e [place] ([facility]) cannabinoids urine positive negative Above high normal Cannabinoi ds Urine [facility] ([facility]) benzodiazepines urine negative negative Benzodiazepine s Urine [facility] ([facility]) cocaine metabolite urine negative negative Cocaine Met abolite Urine [facility] ([facility]) methadone urine negative negative Methadone Urine [facility] ([facility]) opiates urine negative negative Opiates Urine [facility] ( [facility]) phencyclidine urine negative negative Phencyclidine Ur ine [facility] ([facility]) ID Date Data Source [id number] 08/16/2020 09:38:00 PM EDT [facility] ([facility]) Name Value Range Interpretation Code Description Data Libia rce(s) Supporting Document(s) appearance, urine rfx hazy clear Appearance, Ur ine Rfx [facility] ([facility]) color, urine rfx yellow yellow Color, Urine Rfx AT [facility] ([facility]) pH,urine rfx 5.0 units 5.0-9.0 pH,urine Rfx [place] ([facility]) specific gravity ur auto rfx 1.002-1.035 Specif ic [place] Ur Auto Rfx [facility] ([facility]) glucose, urine (UA) auto rfx negative negative Glucose , Urine (UA) Auto Rfx [facility] ([facility]) protein, urine auto rfx negative negative Protein, Uri ne Auto Rfx [facility] ([facility]) ketone, urine auto rfx negative negative Ketone, Urine Auto Rfx [facility] ([facility]) urobilinogen, urine auto rfx 0.2 mg/dL 0.0-2.0 Urobili nogen, Urine Auto Rfx [facility] ([facility]) bilirubin, urine auto rfx negative negative Bilirubin, Urine Auto Rfx [facility] ([facility]) nitrite, urine auto rfx negative negative Nitrite, Uri ne Auto Rfx [facility] ([facility]) leukocyte esterase ur auto rfx trace negative Above high normal Leukocyte Esterase Ur Auto Rfx [facility] ([facility]) blood, urine blood rfx negative negative Blood, Urine Blood Rfx [facility] ([facility]) WBC, urine auto rfx 1 /hpf 0-3 WBC, Urine Auto Rfx [facility] ([facility]) bacteria, urine auto rfx negative negative Bacteria, U rine Auto Rfx [facility] ([facility]) RBC, urine auto rfx 1 /hpf 0-3 RBC, Urine Auto Rfx [facility] ([facility]) mucus, urine rfx small negative Mucus, Urine Rfx AT [facility] ([facility]) squam epithelial cell ur aurfx 2 /hpf 0-6 Squam Epithelial Cell Ur Aurfx [place] ([facility]) hyaline cast, urine auto rfx 0 /lpf 0-1 Hyaline Cast, Urine Auto Rfx [facility] ([facility]) ID Date Data Source [id number] 08/16/2020 09:38:00 PM EDT [facility] ([facility]) Name Value Range Interpretation Code Description Data Libia rce(s) Supporting Document(s) ID Date Data Source [id number] 08/16/2020 09:38:00 PM EDT [facility] ([facility]) Name Value Range Interpretation Code Description Data Libia rce(s) Supporting Document(s) barbiturates urine negative negative Barbiturates Urin e [facility] ([facility]) amphetamines level urine negative negative Amphetamine s Level Urine [facility] ([facility]) cannabinoids urine positive negative Above high normal Cannabinoi ds Urine [facility] ([facility]) benzodiazepines urine negative negative Benzodiazepine s Urine [facility] ([facility]) cocaine metabolite urine negative negative Cocaine Met abolite Urine [facility] ([facility]) methadone urine negative negative Methadone Urine [facility] ([facility]) phencyclidine urine negative negative Phencyclidine Ur ine [facility] ([facility]) opiates urine negative negative Opiates Urine [facility] ( [facility]) ID Date Data Source [id number] 08/16/2020 09:38:00 PM EDT [facility] ([facility]) Name Value Range Interpretation Code Description Data Libia rce(s) Supporting Document(s) appearance, urine rfx hazy clear Appearance, Ur ine Rfx [facility] ([facility]) pH,urine rfx 5.0 units 5.0-9.0 pH,urine Rfx [facility] ([facility]) color, urine rfx yellow yellow Color, Urine Rfx AT [facility] ([facility]) protein, urine auto rfx negative negative Protein, Uri ne Auto Rfx [facility] ([facility]) specific gravity ur auto rfx 1.002-1.035 Specif ic [place] Ur Auto Rfx [facility] ([facility]) ketone, urine auto rfx negative negative Ketone, Urine Auto Rfx [facility] ([facility]) glucose, urine (UA) auto rfx negative negative Glucose , Urine (UA) Auto Rfx [facility] ([facility]) urobilinogen, urine auto rfx 0.2 mg/dL 0.0-2.0 Urobili nogen, Urine Auto Rfx [facility] ([facility]) bilirubin, urine auto rfx negative negative Bilirubin, Urine Auto Rfx [place] ([facility]) nitrite, urine auto rfx negative negative Nitrite, Uri ne Auto Rfx [facility] ([facility]) blood, urine blood rfx negative negative Blood, Urine Blood Rfx [facility] ([facility]) leukocyte esterase ur auto rfx trace negative Above high normal Leukocyte Esterase Ur Auto Rfx [facility] ([facility]) RBC, urine auto rfx 1 /hpf 0-3 RBC, Urine Auto Rfx [facility] ([facility]) WBC, urine auto rfx 1 /hpf 0-3 WBC, Urine Auto Rfx [facility] ([facility]) bacteria, urine auto rfx negative negative Bacteria, U rine Auto Rfx [facility] ([facility]) squam epithelial cell ur aurfx 2 /hpf 0-6 Squam Epithelial Cell Ur Aurfx [facility] ([facility]) mucus, urine rfx small negative Mucus, Urine Rfx AT [facility] ([facility]) hyaline cast, urine auto rfx 0 /lpf 0-1 Hyaline Cast, Urine Auto Rfx [facility] ([facility]) ID Date Data Source [id number] 08/16/2020 09:38:00 PM EDT [facility] ([facility]) Name Value Range Interpretation Code Description Data Libia rce(s) Supporting Document(s) ID Date Data Source [id number] 08/16/2020 09:38:00 PM EDT [facility] ([facility]) Name Value Range Interpretation Code Description Data Libia rce(s) Supporting Document(s) amphetamines level urine negative negative Amphetamine s Level Urine [facility] ([facility]) barbiturates urine negative negative Barbiturates Urin e [facility] ([facility]) benzodiazepines urine negative negative Benzodiazepine s Urine [facility] ([facility]) cannabinoids urine positive negative Above high normal Cannabinoi ds Urine [facility] ([facility]) cocaine metabolite urine negative negative Cocaine Met abolite Urine [facility] ([facility]) methadone urine negative negative Methadone Urine [facility] ([facility]) opiates urine negative negative Opiates Urine [facility] ( [facility]) phencyclidine urine negative negative Phencyclidine Ur ine [facility] ([facility]) ID Date Data Source [id number] 08/16/2020 09:38:00 PM EDT [facility] ([facility]) Name Value Range Interpretation Code Description Data Libia rce(s) Supporting Document(s) appearance, urine rfx hazy clear Appearance, Ur ine Rfx [facility] ([facility]) color, urine rfx yellow yellow Color, Urine Rfx AT [facility] ([facility]) specific gravity ur auto rfx 1.002-1.035 Specif ic [place] Ur Auto Rfx [facility] ([facility]) pH,urine rfx 5.0 units 5.0-9.0 pH,urine Rfx [facility] ([facility]) protein, urine auto rfx negative negative Protein, Uri ne Auto Rfx [facility] ([facility]) glucose, urine (UA) auto rfx negative negative Glucose , Urine (UA) Auto Rfx [facility] ([facility]) ketone, urine auto rfx negative negative Ketone, Urine Auto Rfx [facility] ([facility]) bilirubin, urine auto rfx negative negative Bilirubin, Urine Auto Rfx [facility] ([facility]) urobilinogen, urine auto rfx 0.2 mg/dL 0.0-2.0 Urobili nogen, Urine Auto Rfx [place] ([facility]) nitrite, urine auto rfx negative negative Nitrite, Uri ne Auto Rfx [facility] ([facility]) leukocyte esterase ur auto rfx trace negative Above high normal Leukocyte Esterase Ur Auto Rfx [facility] ([facility]) blood, urine blood rfx negative negative Blood, Urine Blood Rfx [facility] ([facility]) RBC, urine auto rfx 1 /hpf 0-3 RBC, Urine Auto Rfx [facility] ([facility]) WBC, urine auto rfx 1 /hpf 0-3 WBC, Urine Auto Rfx [facility] ([facility]) squam epithelial cell ur aurfx 2 /hpf 0-6 Squam Epithelial Cell Ur Aurfx [facility] ([facility]) bacteria, urine auto rfx negative negative Bacteria, U rine Auto Rfx [facility] ([facility]) mucus, urine rfx small negative Mucus, Urine Rfx AT [facility] ([facility]) hyaline cast, urine auto rfx 0 /lpf 0-1 Hyaline Cast, Urine Auto Rfx [facility] ([facility]) ID Date Data Source [id number] 08/16/2020 09:38:00 PM EDT [facility] ([facility]) Name Value Range Interpretation Code Description Data Libia rce(s) Supporting Document(s) ID Date Data Source [id number] 08/16/2020 09:38:00 PM EDT [facility] ([facility]) Name Value Range Interpretation Code Description Data Libia rce(s) Supporting Document(s) barbiturates urine negative negative Barbiturates Urin e [facility] ([facility]) amphetamines level urine negative negative Amphetamine s Level Urine [facility] ([facility]) benzodiazepines urine negative negative Benzodiazepine s Urine [facility] ([facility]) cannabinoids urine positive negative Above high normal Cannabinoi ds Urine [facility] ([facility]) cocaine metabolite urine negative negative Cocaine Met abolite Urine [facility] ([facility] [facility] methadone urine negative negative Methadone Urine ATHE ([facility]) phencyclidine urine negative negative Phencyclidine Ur ine ESTHELA ([facility]) opiates urine negative negative Opiates Urine ESTHELA ( [facility]) ID Date Data Source [id number] 08/16/2020 09:38:00 PM EDT TRAM ([facility]) Name Value Range Interpretation Code Description Data Libia rce(s) Supporting Document(s) appearance, urine rfx hazy clear Appearance, Ur ine Rfx TRAM ([facility]) color, urine rfx yellow yellow Color, Urine Rfx AT [facility] ([facility]) specific gravity ur auto rfx 1.002-1.035 Specif ic [place] Ur Auto Rfx TRAM ([facility]) pH,urine rfx 5.0 units 5.0-9.0 pH,urine Rfx TRAM ([facility]) protein, urine auto rfx negative negative Protein, Uri ne Auto Rfx TRAM ([facility]) glucose, urine (UA) auto rfx negative negative Glucose , Urine (UA) Auto Rfx TRAM ([facility]) ketone, urine auto rfx negative negative Ketone, Urine Auto Rfx TRAM ([facility]) urobilinogen, urine auto rfx 0.2 mg/dL 0.0-2.0 Urobili nogen, Urine Auto Rfx TRAM ([facility]) bilirubin, urine auto rfx negative negative Bilirubin, Urine Auto Rfx TRAM ([facility]) nitrite, urine auto rfx negative negative Nitrite, Uri ne Auto Rfx TRAM ([facility]) leukocyte esterase ur auto rfx trace negative Above high normal Leukocyte Esterase Ur Auto Rfx TRAM ([facility]) blood, urine blood rfx negative negative Blood, Urine Blood Rfx TRAM ([facility]) WBC, urine auto rfx 1 /hpf 0-3 WBC, Urine Auto Rfx TRAM ([facility]) bacteria, urine auto rfx negative negative Bacteria, U rine Auto Rfx TRAM ([facility]) RBC, urine auto rfx 1 /hpf 0-3 RBC, Urine Auto Rfx TRAM ([facility]) squam epithelial cell ur aurfx 2 /hpf 0-6 Squam Epithelial Cell Ur Aurfx TRAM ([facility]) mucus, urine rfx small negative Mucus, Urine Rfx AT [facility] ([facility]) hyaline cast, urine auto rfx 0 /lpf 0-1 Hyaline Cast, Urine Auto Rfx ESTHELA ([facility]) ID Date Data Source [id number] 08/16/2020 09:38:00 PM EDT ESTHELA ([facility]) Name Value Range Interpretation Code Description Data Libia rce(s) Supporting Document(s) ID Date Data Source [id number] 08/16/2020 09:38:00 PM EDT ESTHELA ([facility]) Name Value Range Interpretation Code Description Data Libia rce(s) Supporting Document(s) amphetamines level urine negative negative Amphetamine s Level Urine ESTHELA ([facility]) barbiturates urine negative negative Barbiturates Urin e ESTHELA ([facility]) cannabinoids urine positive negative Above high normal Cannabinoi ds Urine ESTHELA ([facility]) benzodiazepines urine negative negative Benzodiazepine s Urine ESTHELA ([facility]) cocaine metabolite urine negative negative Cocaine Met abolite Urine ESTHELA ([facility]) methadone urine negative negative Methadone Urine ATHE NA ([facility]) opiates urine negative negative Opiates Urine ESTHELA ( [facility]) phencyclidine urine negative negative Phencyclidine Ur ine ESTHELA ([facility]) ID Date Data Source [id number] 08/16/2020 09:38:00 PM EDT ESTHELA ([facility]) Name Value Range Interpretation Code Description Data Libia rce(s) Supporting Document(s) appearance, urine rfx hazy clear Appearance, Ur ine Rfx ESTHELA ([facility]) color, urine rfx yellow yellow Color, Urine Rfx AT [facility] ([facility]) pH,urine rfx 5.0 units 5.0-9.0 pH,urine Rfx ESTHELA ([facility]) protein, urine auto rfx negative negative Protein, Uri ne Auto Rfx ESTHELA ([facility]) specific gravity ur auto rfx 1.002-1.035 Specif ic [place] Ur Auto Rfx ESTHELA ([facility]) ketone, urine auto rfx negative negative Ketone, Urine Auto Rfx ESTHELA ([facility]) glucose, urine (UA) auto rfx negative negative Glucose , Urine (UA) Auto Rfx TRAM ([facility]) urobilinogen, urine auto rfx 0.2 mg/dL 0.0-2.0 Urobili nogen, Urine Auto Rfx TRAM ([facility]) bilirubin, urine auto rfx negative negative Bilirubin, Urine Auto Rfx ESTHELA ([facility]) nitrite, urine auto rfx negative negative Nitrite, Uri ne Auto Rfx TRAM ([facility]) blood, urine blood rfx negative negative Blood, Urine Blood Rfx TRAM ([facility]) leukocyte esterase ur auto rfx trace negative Above high normal Leukocyte Esterase Ur Auto Rfx TRAM ([facility]) WBC, urine auto rfx 1 /hpf 0-3 WBC, Urine Auto Rfx ESTHELA ([facility]) RBC, urine auto rfx 1 /hpf 0-3 RBC, Urine Auto Rfx ESTHELA ([facility]) squam epithelial cell ur aurfx 2 /hpf 0-6 Squam Epithelial Cell Ur Aurfx ESTHELA ([facility]) bacteria, urine auto rfx negative negative Bacteria, U rine Auto Rfx TRAM ([facility]) hyaline cast, urine auto rfx 0 /lpf 0-1 Hyaline Cast, Urine Auto Rfx ESTHELA ([facility]) mucus, urine rfx small negative Mucus, Urine Rfx AT [facility] ([facility]) ID Date Data Source [id number] 08/16/2020 09:38:00 PM EDT TRAM ([facility]) Name Value Range Interpretation Code Description Data Libia rce(s) Supporting Document(s) ID Date Data Source [id number] 08/16/2020 09:38:00 PM EDT TRAM ([facility]) Name Value Range Interpretation Code Description Data Libia rce(s) Supporting Document(s) amphetamines level urine negative negative Amphetamine s Level Urine ESTHELA ([facility]) barbiturates urine negative negative Barbiturates Urin e ESTHELA ([facility]) benzodiazepines urine negative negative Benzodiazepine s Urine ESTHELA ([facility]) cannabinoids urine positive negative Above high normal Cannabinoi ds Urine ESTHELA ([facility]) cocaine metabolite urine negative negative Cocaine Met abolite Urine ESTHELA ([facility]) methadone urine negative negative Methadone Urine ATHE NA ([facility]) opiates urine negative negative Opiates Urine ESTHELA ( [facility]) phencyclidine urine negative negative Phencyclidine Ur ine ESTHELA ([facility]) ID Date Data Source [id number] 08/16/2020 09:38:00 PM EDT TRAM ([facility]) Name Value Range Interpretation Code Description Data Libia rce(s) Supporting Document(s) appearance, urine rfx hazy clear Appearance, Ur ine Rfx ESTHELA ([facility]) pH,urine rfx 5.0 units 5.0-9.0 pH,urine Rfx ESTHELA ([facility]) color, urine rfx yellow yellow Color, Urine Rfx AT [facility] ([facility]) protein, urine auto rfx negative negative Protein, Uri ne Auto Rfx TRAM ([facility]) specific gravity ur auto rfx 1.002-1.035 Specif ic [place] Ur Auto Rfx ESTHELA ([facility]) glucose, urine (UA) auto rfx negative negative Glucose , Urine (UA) Auto Rfx ESTHELA ([facility]) ketone, urine auto rfx negative negative Ketone, Urine Auto Rfx ESTHELA ([facility]) bilirubin, urine auto rfx negative negative Bilirubin, Urine Auto Rfx TRAM ([facility]) urobilinogen, urine auto rfx 0.2 mg/dL 0.0-2.0 Urobili nogen, Urine Auto Rfx TRAM ([facility]) nitrite, urine auto rfx negative negative Nitrite, Uri ne Auto Rfx TRAM ([facility]) leukocyte esterase ur auto rfx trace negative Above high normal Leukocyte Esterase Ur Auto Rfx ESTHELA ([facility]) blood, urine blood rfx negative negative Blood, Urine Blood Rfx ESTHELA ([facility]) WBC, urine auto rfx 1 /hpf 0-3 WBC, Urine Auto Rfx ESTHELA ([facility]) RBC, urine auto rfx 1 /hpf 0-3 RBC, Urine Auto Rfx ESTHELA ([facility]) squam epithelial cell ur aurfx 2 /hpf 0-6 Squam Epithelial Cell Ur Aurfx ESTHELA ([facility]) bacteria, urine auto rfx negative negative Bacteria, U rine Auto Rfx ESTHELA ([facility]) mucus, urine rfx small negative Mucus, Urine Rfx AT [facility] ([facility]) hyaline cast, urine auto rfx 0 /lpf 0-1 Hyaline Cast, Urine Auto Rfx TRAM ([facility]) ID Date Data Source [id number] 08/16/2020 09:38:00 PM EDT TRAM ([facility]) Name Value Range Interpretation Code Description Data Libia rce(s) Supporting Document(s) ID Date Data Source [id number] 08/16/2020 09:38:00 PM EDT TRAM ([facility]) Name Value Range Interpretation Code Description Data Libia rce(s) Supporting Document(s) barbiturates urine negative negative Barbiturates Urin e ESTHELA ([facility]) amphetamines level urine negative negative Amphetamine s Level Urine ESTHELA ([facility]) benzodiazepines urine negative negative Benzodiazepine s Urine ESTHELA ([facility]) cannabinoids urine positive negative Above high normal Cannabinoi ds Urine ESTHELA ([facility]) cocaine metabolite urine negative negative Cocaine Met abolite Urine ESTHELA ([facility]) opiates urine negative negative Opiates Urine ESTHELA ( [facility]) methadone urine negative negative Methadone Urine ATHE ([facility]) phencyclidine urine negative negative Phencyclidine Ur ine TRAM ([facility]) ID Date Data Source [id number] 08/16/2020 09:38:00 PM EDT TRAM ([facility]) Name Value Range Interpretation Code Description Data Libia rce(s) Supporting Document(s) appearance, urine rfx hazy clear Appearance, Ur ine Rfx TRAM ([facility]) color, urine rfx yellow yellow Color, Urine Rfx AT [facility]) pH,urine rfx 5.0 units 5.0-9.0 pH,urine Rfx ESTHELA (No [facility]) specific gravity ur auto rfx 1.002-1.035 Specif ic [place] Ur Auto Rfx TRAM ([facility]) glucose, urine (UA) auto rfx negative negative Glucose , Urine (UA) Auto Rfx TRAM ([facility]) protein, urine auto rfx negative negative Protein, Uri ne Auto Rfx TRAM ([facility]) ketone, urine auto rfx negative negative Ketone, Urine Auto Rfx TRAM ([facility]) urobilinogen, urine auto rfx 0.2 mg/dL 0.0-2.0 Urobili nogen, Urine Auto Rfx TRAM ([facility]) bilirubin, urine auto rfx negative negative Bilirubin, Urine Auto Rfx TRAM ([facility]) nitrite, urine auto rfx negative negative Nitrite, Uri ne Auto Rfx TRAM ([facility]) leukocyte esterase ur auto rfx trace negative Above high normal Leukocyte Esterase Ur Auto Rfx TRAM ([facility]) blood, urine blood rfx negative negative Blood, Urine Blood Rfx TRAM ([facility]) WBC, urine auto rfx 1 /hpf 0-3 WBC, Urine Auto Rfx ESTHELA ([facility]) RBC, urine auto rfx 1 /hpf 0-3 RBC, Urine Auto Rfx TRAM ([facility]) bacteria, urine auto rfx negative negative Bacteria, U rine Auto Rfx TRAM ([facility]) squam epithelial cell ur aurfx 2 /hpf 0-6 Squam Epithelial Cell Ur Aurfx TRAM ([facility]) mucus, urine rfx small negative Mucus, Urine Rfx AT [facility]) hyaline cast, urine auto rfx 0 /lpf 0-1 Hyaline Cast, Urine Auto Rfx TRAM ([facility]) ID Date Data Source [id number] 08/16/2020 09:36:00 PM EDT TRAM ([facility]) Name Value Range Interpretation Code Description Data Libia rce(s) Supporting Document(s) free T4 0.90 NG/dL 0.78-1.33 Free T4 [facility]) ID Date Data Source [id number] 08/16/2020 09:36:00 PM EDT [facility]) Name Value Range Interpretation Code Description Data Libia rce(s) Supporting Document(s) thyroid stimulating hormone 2.090 uIU/mL 0.463-3.98 Thyroid Stimulating Hormone TRAM ([facility]) ID Date Data Source [id number] 08/16/2020 09:36:00 PM EDT [facility]) Name Value Range Interpretation Code Description Data Libia rce(s) Supporting Document(s) magnesium level 1.7 mg/dL 1.8-2.4 Below low normal Magnesium Leve l ESTHELA ([facility]) ID Date Data Source [id number] 08/16/2020 09:36:00 PM EDT TRAM ([facility]) Name Value Range Interpretation Code Description Data Libia rce(s) Supporting Document(s) CPK creatine phosphokinase 31 U/L 26-192 CPK Creat ine Phosphokinase TRAM ([facility]) CK-mb value mass < 1.0 <3.6 CK-mb Value Mass AT [facility] ([facility]) mb/CK relative index < or =4 mb/CK Relative Index ESTHELA ([facility]) troponin I < 0.02 < 0.10 Troponin I [facility]) ID Date Data Source [id number] 08/16/2020 09:36:00 PM EDT ESTHELA ([facility]) Name Value Range Interpretation Code Description Data Libia rce(s) Supporting Document(s) D-dimer quant < 270 <500 D-dimer Quant ESTHELA ( [facility]) ID Date Data Source [id number] 08/16/2020 09:36:00 [facility] Name Value Range Interpretation Code Description Data Libia rce(s) Supporting Document(s) partial thromboplastin time 26.9 seconds 24.2-38.5 Partial Thromboplastin Time TRAM ([facility]) ID Date Data Source [id number] 08/16/2020 09:36:00 PM EDT ESTHELA ([facility]) Name Value Range Interpretation Code Description Data Libia rce(s) Supporting Document(s) INR Inr ESTHELA ([facility]) prothrombin time 13.7 seconds 12.5-14.3 Prothrombin Time ESTHELA ([facility]) ID Date Data Source [id number] 08/16/2020 09:36:00 PM EDT ESTHELA ([facility]) Name Value Range Interpretation Code Description Data Libia rce(s) Supporting Document(s) free T4 0.90 NG/dL 0.78-1.33 [facility] ID Date Data Source [id number] 08/16/2020 09:36:00 PM EDT [facility]) Name Value Range Interpretation Code Description Data Libia rce(s) Supporting Document(s) thyroid stimulating hormone 2.090 uIU/mL 0.463-3.98 Thyroid Stimulating Hormone [facility]) ID Date Data Source [id number] 08/16/2020 09:36:00 PM EDT ESTHELA ([facility]) Name Value Range Interpretation Code Description Data Libia rce(s) Supporting Document(s) magnesium level 1.7 mg/dL 1.8-2.4 Below low normal Magnesium Ruthann lomax ESTHELA ([facility]) ID Date Data Source [id number] 08/16/2020 09:36:00 PM EDT ESTHELA ([facility]) Name Value Range Interpretation Code Description Data Libia rce(s) Supporting Document(s) CPK creatine phosphokinase 31 U/L 26-192 CPK Creat ine Phosphokinase TRAM ([facility]) CK-mb value mass < 1.0 <3.6 CK-mb Value Mass AT [facility] ([facility]) troponin I < 0.02 < 0.10 Troponin I ESTHELA ([facility]) mb/CK relative index < or =4 mb/CK Relative Index ESTHELA ([facility]) ID Date Data Source [id number] 08/16/2020 09:36:00 PM EDT TRAM ([facility]) Name Value Range Interpretation Code Description Data Libia rce(s) Supporting Document(s) D-dimer quant < 270 <500 D-dimer Quant ESTHELA ( [facility]) ID Date Data Source [id number] 08/16/2020 09:36:00 PM EDT ESTHELA ([facility]) Name Value Range Interpretation Code Description Data Libia rce(s) Supporting Document(s) partial thromboplastin time 26.9 seconds 24.2-38.5 Partial Thromboplastin Time ESTHELA ([facility]) ID Date Data Source [id number] 08/16/2020 09:36:00 PM [facility] Name Value Range Interpretation Code Description Data Libia rce(s) Supporting Document(s) prothrombin time 13.7 seconds 12.5-14.3 Prothrombin Time ESTHELA ([facility]) INR Inr ESTHELA ([facility]) ID Date Data Source [id number] 08/16/2020 09:36:00 PM EDT ESTHELA ([facility]) Name Value Range Interpretation Code Description Data Libia rce(s) Supporting Document(s) free T4 0.90 NG/dL 0.78-1.33 Free T4 TRAM ([facility]) ID Date Data Source [id number] 08/16/2020 09:36:00 PM [facility] Name Value Range Interpretation Code Description Data Libia rce(s) Supporting Document(s) thyroid stimulating hormone 2.090 uIU/mL 0.463-3.98 Thyroid Stimulating Hormone TRAM ([facility]) ID Date Data Source [id number] 08/16/2020 09:36:00 PM [facility] Name Value Range Interpretation Code Description Data Libia rce(s) Supporting Document(s) magnesium level 1.7 mg/dL 1.8-2.4 Below low normal Magnesium Leve l ESTHELA ([facility]) ID Date Data Source [id number] 08/16/2020 09:36:00 PM [facility] Name Value Range Interpretation Code Description Data Libia rce(s) Supporting Document(s) CK-mb value mass < 1.0 <3.6 CK-mb Value Mass AT [facility] ([facility]) CPK creatine phosphokinase 31 U/L 26-192 CPK Creat ine Phosphokinase ESTHELA ([facility]) troponin I < 0.02 < 0.10 Troponin I ESTHELA ([facility]) mb/CK relative index < or =4 mb/CK Relative Index ESTHELA ([facility]) ID Date Data Source [id number] 08/16/2020 09:36:00 PM [facility] Name Value Range Interpretation Code Description Data Libia rce(s) Supporting Document(s) D-dimer quant < 270 <500 D-dimer Quant ESTHELA ( [facility]) ID Date Data Source [id number] 08/16/2020 09:36:00 PM [facility]T [facility] Name Value Range Interpretation Code Description Data Libia rce(s) Supporting Document(s) partial thromboplastin time 26.9 seconds 24.2-38.5 [facility]in [facility] ID Date Data Source [id number] 08/16/2020 09:36:00 PM [facility]T [facility] Name Value Range Interpretation Code Description Data Libia rce(s) Supporting Document(s) prothrombin time 13.7 seconds 12.5-14.3 Prothrombin Time ESTHELA ([facility]) INR Inr ESTHELA ([facility]) ID Date Data Source [id number] 08/16/2020 09:36:00 PM EDT [facility] Name Value Range Interpretation Code Description Data Libia rce(s) Supporting Document(s) D-dimer quant < 270 <500 D-dimer Quant ESTHELA ( [facility]) ID Date Data Source [id number] 08/16/2020 09:36:00 PM EDT [facility] Name Value Range Interpretation Code Description Data Libia rce(s) Supporting Document(s) partial thromboplastin time 26.9 seconds 24.2-38.5 Partial [facility]oplastin Time [facility] ID Date Data Source [id number] 08/16/2020 09:36:00 PM EDT ESTHELA ([facility]) Name Value Range Interpretation Code Description Data Libia rce(s) Supporting Document(s) prothrombin time 13.7 seconds 12.5-14.3 Prothrombin Time ESTHELA ([facility]) INR Inr ESTHELA ([facility]) ID Date Data Source [id number] 08/16/2020 09:36:00 PM EDT ESTHELA ([facility]) Name Value Range Interpretation Code Description Data Libia rce(s) Supporting Document(s) free T4 0.90 NG/dL 0.78-1.33 Free T4 TRAM ([facility]) ID Date Data Source [id number] 08/16/2020 09:36:00 PM EDT ESTHELA ([facility]) Name Value Range Interpretation Code Description Data Libia rce(s) Supporting Document(s) thyroid stimulating hormone 2.090 uIU/mL 0.463-3.98 Thyroid Stimulating Hormone TRAM ([facility]) ID Date Data Source [id number] 08/16/2020 09:36:00 PM EDT ESTHELA ([facility]) Name Value Range Interpretation Code Description Data Libia rce(s) Supporting Document(s) magnesium level 1.7 mg/dL 1.8-2.4 Below low normal Magnesium Leve l ESTHELA ([facility]) ID Date Data Source [id number] 08/16/2020 09:36:00 PM [facility] Name Value Range Interpretation Code Description Data Libia rce(s) Supporting Document(s) CK-mb value mass < 1.0 <3.6 CK-mb Value Mass AT [facility] ([facility]) CPK creatine phosphokinase 31 U/L 26-192 CPK Creat ine Phosphokinase TRAM ([facility]) troponin I < 0.02 < 0.10 Troponin I ESTHELA ([facility]) mb/CK relative index < or =4 mb/CK Relative Index ESTHELA ([facility]) ID Date Data Source [id number] 08/16/2020 09:36:00 PM EDT ESTHELA ([facility]) Name Value Range Interpretation Code Description Data Libia rce(s) Supporting Document(s) D-dimer quant < 270 <500 D-dimer Quant ESTHELA ( [facility]) ID Date Data Source [id number] 08/16/2020 09:36:00 PM EDT TRAM ([facility]) Name Value Range Interpretation Code Description Data Libia rce(s) Supporting Document(s) partial thromboplastin time 26.9 seconds 24.2-38.5 Partial Thromboplastin Time ESTHELA ([facility]) ID Date Data Source [id number] 08/16/2020 09:36:00 PM [facility] Name Value Range Interpretation Code Description Data Libia rce(s) Supporting Document(s) prothrombin time 13.7 seconds 12.5-14.3 Prothrombin Time TRAM ([facility]) INR Inr ESTHELA ([facility]) ID Date Data Source [id number] 08/16/2020 09:36:00 PM [facility]T [facility] Name Value Range Interpretation Code Description Data Libia rce(s) Supporting Document(s) free T4 0.90 NG/dL 0.78-1.33 Free T4 ESTHE[place] ([facility]) ID Date Data Source [id number] 08/16/2020 09:36:00 PM [facility] Name Value Range Interpretation Code Description Data Libia rce(s) Supporting Document(s) thyroid stimulating hormone 2.090 uIU/mL 0.463-3.98 Thyroid Stimulating Hormone ESTHELA ([facility]) ID Date Data Source [id number] 08/16/2020 09:36:00 PM EDT TRAM ([facility]) Name Value Range Interpretation Code Description Data Libia rce(s) Supporting Document(s) magnesium level 1.7 mg/dL 1.8-2.4 Below low normal Magnesium Leve l TRAM ([facility]) ID Date Data Source [id number] 08/16/2020 09:36:00 PM EDT ESTHELA ([facility]) Name Value Range Interpretation Code Description Data Libia rce(s) Supporting Document(s) CPK creatine phosphokinase 31 U/L 26-192 CPK Creat ine Phosphokinase ESTHELA ([facility]) mb/CK relative index < or =4 mb/CK Relative Index TRAM ([facility]) CK-mb value mass < 1.0 <3.6 CK-mb Value Mass AT AMY ([facility]) troponin I < 0.02 < 0.10 Troponin I TRAM ([facility]) ID Date Data Source [id number] 08/16/2020 09:36:00 PM EDT TRAM ([facility]) Name Value Range Interpretation Code Description Data Libia rce(s) Supporting Document(s) D-dimer quant < 270 <500 D-dimer Quant ESTHELA ( [facility]) ID Date Data Source [id number] 08/16/2020 09:36:00 PM EDT TRAM ([facility]) Name Value Range Interpretation Code Description Data Libia rce(s) Supporting Document(s) partial thromboplastin time 26.9 seconds 24.2-38.5 Partial Thromboplastin Time [facility]) ID Date Data Source [id number] 08/16/2020 09:36:00 PM EDT ESTHE[place] ([facility]) Name Value Range Interpretation Code Description Data Libia rce(s) Supporting Document(s) prothrombin time 13.7 seconds 12.5-14.3 Prothrombin Time ESTHELA ([facility]) INR Inr ESTHELA ([facility]) ID Date Data Source [id number] 08/16/2020 09:36:00 PM EDT ESTHELA ([facility]) Name Value Range Interpretation Code Description Data Libia rce(s) Supporting Document(s) free T4 0.90 NG/dL 0.78-1.33 Free T4 ESTHE[place] ([facility]) ID Date Data Source [id number] 08/16/2020 09:36:00 PM EDT ESTHE[place] ([facility]) Name Value Range Interpretation Code Description Data Libia rce(s) Supporting Document(s) thyroid stimulating hormone 2.090 uIU/mL 0.463-3.98 Thyroid Stimulating Hormone ESTHELA ([facility]) ID Date Data Source [id number] 08/16/2020 09:36:00 PM EDT [facility] Name Value Range Interpretation Code Description Data Libia rce(s) Supporting Document(s) magnesium level 1.7 mg/dL 1.8-2.4 Below low normal Magnesium Sarabjite l ESTHELA ([facility]) ID Date Data Source [id number] 08/16/2020 09:36:00 PM EDT [facility] Name Value Range Interpretation Code Description Data Libia rce(s) Supporting Document(s) CPK creatine phosphokinase 31 U/L 26-192 CPK Creat ine Phosphokinase ESTHELA ([facility]) CK-mb value mass < 1.0 <3.6 CK-mb Value Mass AT AMY ([facility]) mb/CK relative index < or =4 mb/CK Relative Index ESTHELA ([facility]) troponin I < 0.02 < 0.10 Troponin I ESTHE[place] ([facility]) ID Date Data Source [id number] 08/16/2020 09:36:00 PM EDT ESTHE[place] ([facility]) Name Value Range Interpretation Code Description Data Libia rce(s) Supporting Document(s) D-dimer quant < 270 <500 D-dimer Quant ESTHELA ( [facility]) ID Date Data Source [id number] 08/16/2020 09:36:00 PM EDT [facility] Name Value Range Interpretation Code Description Data Libia rce(s) Supporting Document(s) partial thromboplastin time 26.9 seconds 24.2-38.5 Partial Thromboplastin Time ESTHE[place] ([facility]) ID Date Data Source [id number] 08/16/2020 09:36:00 PM EDT [facility] Name Value Range Interpretation Code Description Data Libia rce(s) Supporting Document(s) prothrombin time 13.7 seconds 12.5-14.3 Prothrombin Time ESTHE[place] ([facility]) INR Inr EST[place] ([facility]) ID Date Data Source [id number] 08/16/2020 09:36:00 PM EDT [facility] Name Value Range Interpretation Code Description Data Libia rce(s) Supporting Document(s) free T4 0.90 NG/dL 0.78-1.33 Free T4 [facility]) ID Date Data Source [id number] 08/16/2020 09:36:00 PM EDT [facility] Name Value Range Interpretation Code Description Data Libia rce(s) Supporting Document(s) thyroid stimulating hormone 2.090 uIU/mL 0.463-3.98 Thyroid Stimulating Hormone ESTHELA ([facility]) ID Date Data Source [id number] 08/16/2020 09:36:00 PM EDT ESTHE[place] ([facility]) Name Value Range Interpretation Code Description Data Libia rce(s) Supporting Document(s) magnesium level 1.7 mg/dL 1.8-2.4 Below low normal Magnesium Leve l ESTHELA ([facility]) ID Date Data Source [id number] 08/16/2020 09:36:00 PM EDT ESTHE[place] ([facility]) Name Value Range Interpretation Code Description Data Libia rce(s) Supporting Document(s) CPK creatine phosphokinase 31 U/L 26-192 CPK Creat ine Phosphokinase ESTHE[place] ([facility]) CK-mb value mass < 1.0 <3.6 CK-mb Value Mass AT AMY ([facility]) mb/CK relative index < or =4 mb/CK Relative Index ESTHE[place] ([facility]) troponin I < 0.02 < 0.10 Troponin I EST[place] ([facility]) ID Date Data Source [id number] 08/16/2020 09:36:00 PM EDT ESTHE[place] ([facility]) Name Value Range Interpretation Code Description Data Libia rce(s) Supporting Document(s) D-dimer quant < 270 <500 D-dimer Quant ESTHE[place] ( [facility]) ID Date Data Source [id number] 08/16/2020 09:36:00 PM EDT ESTHE[place] ([facility]) Name Value Range Interpretation Code Description Data Libia rce(s) Supporting Document(s) partial thromboplastin time 26.9 seconds 24.2-38.5 Partial Thromboplastin Time ESTHE[place] ([facility]) ID Date Data Source [id number] 08/16/2020 09:36:00 PM EDT ESTHE[place] ([facility]) Name Value Range Interpretation Code Description Data Libia rce(s) Supporting Document(s) INR Inr ESTHE[place] ([facility]) prothrombin time 13.7 seconds 12.5-14.3 Prothrombin Time TRAM ([facility]) ID Date Data Source [id number] 08/16/2020 09:36:00 PM EDT ESTHE[place] ([facility]) Name Value Range Interpretation Code Description Data Libia rce(s) Supporting Document(s) free T4 0.90 NG/dL 0.78-1.33 Free T4 TRAM ([facility]) ID Date Data Source [id number] 08/16/2020 09:36:00 PM EDT TRAM ([facility]) Name Value Range Interpretation Code Description Data Ilbia rce(s) Supporting Document(s) thyroid stimulating hormone 2.090 uIU/mL 0.463-3.98 Thyroid Stimulating Hormone TRAM ([facility]) ID Date Data Source [id number] 08/16/2020 09:36:00 PM EDT [facility]) Name Value Range Interpretation Code Description Data Libia rce(s) Supporting Document(s) magnesium level 1.7 mg/dL 1.8-2.4 Below low normal Magnesium Leve l TRAM ([facility]) ID Date Data Source [id number] 08/16/2020 09:36:00 PM EDT [facility]) Name Value Range Interpretation Code Description Data Libia rce(s) Supporting Document(s) CPK creatine phosphokinase 31 U/L 26-192 CPK Creat ine Phosphokinase ESTHE[place] ([facility]) CK-mb value mass < 1.0 <3.6 CK-mb Value Mass AT AMY ([facility]) mb/CK relative index < or =4 mb/CK Relative Index ESTHELA ([facility]) troponin I < 0.02 < 0.10 Troponin I EST[place] ([facility]) ID Date Data Source [id number] 08/16/2020 09:36:00 PM EDT ESTHE[place] ([facility]) Name Value Range Interpretation Code Description Data Libia rce(s) Supporting Document(s) D-dimer quant < 270 <500 D-dimer Quant ESTHELA ( [facility]) ID Date Data Source [id number] 08/16/2020 09:36:00 PM EDT [facility] Name Value Range Interpretation Code Description Data Libia rce(s) Supporting Document(s) partial thromboplastin time 26.9 seconds 24.2-38.5 Partial Thromboplastin Time [facility]) ID Date Data Source [id number] 08/16/2020 09:36:00 PM EDT [facility] Name Value Range Interpretation Code Description Data Libia rce(s) Supporting Document(s) prothrombin time 13.7 seconds 12.5-14.3 Pro[facility]rombin Time [facility] INR Inr [place] ([facility]) ID Date Data Source [id number] 08/16/2020 09:36:00 PM EDT [facility] Name Value Range Interpretation Code Description Data Libia rce(s) Supporting Document(s) free T4 0.90 NG/dL 0.78-1.33 Free T4 [facility] ID Date Data Source [id number] 08/16/2020 09:36:00 PM EDT [facility]) Name Value Range Interpretation Code Description Data Libia rce(s) Supporting Document(s) thyroid stimulating hormone 2.090 uIU/mL 0.463-3.98 Thyroid Stimulating Hormone TRAM [facility]) ID Date Data Source [id number] 08/16/2020 09:36:00 PM EDT TRAM ([facility]) Name Value Range Interpretation Code Description Data Libia rce(s) Supporting Document(s) magnesium level 1.7 mg/dL 1.8-2.4 Below low normal Magnesium Leve l [facility]) ID Date Data Source [id number] 08/16/2020 09:36:00 PM EDT TRAM ([facility]) Name Value Range Interpretation Code Description Data Libia rce(s) Supporting Document(s) CPK creatine phosphokinase 31 U/L 26-192 CPK Creat ine Phosphokinase TRAM ([facility]) mb/CK relative index < or =4 mb/CK Relative Index TRAM ([facility]) CK-mb value mass < 1.0 <3.6 CK-mb Value Mass AT [facility]) troponin I < 0.02 < 0.10 Troponin I TRAM ([facility]) ID Date Data Source [id number] 08/16/2020 08:07:00 PM EDT TRAM ([facility]) Name Value Range Interpretation Code Description Data Libia rce(s) Supporting Document(s) HCG, serum qualitative negative negative HCG, Serum Qu alitative [facility]) ID Date Data Source [id number] 08/16/2020 08:07:00 PM EDT [facility]) Name Value Range Interpretation Code Description Data Libia rce(s) Supporting Document(s) glucose, fasting 83 mg/dL 70-100 Glucose, Fasting AT [facility] ([facility]) blood urea nitrogen 10 mg/dL 7-18 Blood Urea Nitro gen TRAM ([facility]) creatinine for GFR 0.63 mg/dL 0.55-1.30 Creatinine for GF R TRAM ([facility]) sodium level 142 mEq/L 136-145 Sodium Level ESTHELA ([facility]) potassium serum 4.4 mEq/L 3.5-5.1 Potassium Serum ATHE NA ([facility]) chloride level 109 mEq/L 98-107 Above high normal Chloride Level ESTHELA ([facility]) carbon dioxide level 29 mEq/L 21-32 Carbon Dioxide Level ESTHE[place] ([facility]) anion gap 4 mEq/L 8-16 Below low normal Anion Gap ESTHELA ( [facility]) calcium level 9.4 mg/dL 8.5-10.1 Calcium Level ESTHELA ( [facility]) AST/SGOT 5 U/L 7-37 Below low normal AST/SGOT ESTHELA ( [facility]) ALT/SGPT 14 U/L 12-78 ALT/SGPT EST[place] ([facility]) alkaline phosphatase 55 U/L 45-117 Alkaline Phosph atase ESTHELA ([facility]) bilirubin,total 0.5 mg/dL 0.2-1.0 Bilirubin,total ATHE ([facility]) total protein 7.1 gm/dL 6.4-8.2 Total Protein ESTHELA ( [facility]) albumin 4.2 gm/dL 3.2-5.2 Albumin ESTHELA ([facility]) albumin/globulin ratio 1.2-2.2 Albumin/globu dyana Ratio ESTHELA ([facility]) ID Date Data Source [id number] 08/16/2020 08:07:00 PM EDT ESTHE[place] ([facility]) Name Value Range Interpretation Code Description Data Libia rce(s) Supporting Document(s) white blood count 6.9 10 4.0-10.0 White Blood Count ESTHE[place] ([facility]) red blood count 4.64 10 4.00-5.40 Red Blood Count ATHE ([facility]) hemoglobin 13.7 g/dL 12.0-15.5 Hemoglobin ESTHELA ([facility]) hematocrit 43.3 % 36.0-47.0 Hematocrit EST[place] ([facility]) mean corpuscular volume 93.3 fL 80.0-96.0 Mean Corpusc ular Volume ESTHELA ([facility]) mean corpuscular hemoglobin 29.5 pg 27.0-33.0 Mean Cor puscular Hemoglobin ESTHELA ([facility]) mean corpuscular HGB conc 31.6 g/dL 32.0-36.5 Below low maira l Mean Corpuscular HGB Conc ESTHELA ([facility]) red cell distribution width 14.1 % 11.5-14.5 Red Cell Distribution Width ESTHE[place] ([facility]) platelet count, automated 242 10 150-450 Platelet C ount, Automated ESTHELA ([facility]) neutrophils % 59.9 % 36.0-66.0 Neutrophils % TRAM ( [facility]) lymph % 29.3 % 24.0-44.0 Lymph % TRAM ([facility]) mono % 6.2 % 2.0-8.0 [place] % TRAM ([facility]) eos % 3.9 % 0.0-3.0 Above high normal Eos % ESTHELA ([facility]) baso % 0.4 % 0.0-1.0 Baso % TRAM ([facility]) immature granulocyte % 0.3 % 0-3.0 Immature Gran ulocyte % TRAM ([facility]) nucleated red blood cell % 0.0 % 0-0 Nucleated Red Blood Cell % TRAM ([facility]) neutrophils # 4.2 10 1.5-8.5 Neutrophils # ESTHELA ( [facility]) lymph # 2.0 10 1.5-5.0 Lymph # EST[place]LA ([facility]) mono # 0.4 10 0.0-0.8 [place] # ESTHELA ([facility]) eos # 0.3 10 0.0-0.5 Eos # TRAM ([facility]) baso # 0.0 10 0.0-0.2 Baso # ESTHELA ([facility]) ID Date Data Source [id number] 08/16/2020 08:07:00 PM EDT TRAM ([facility]) Name Value Range Interpretation Code Description Data Libia rce(s) Supporting Document(s) HCG, serum qualitative negative negative HCG, Serum Qu alitative ESTHELA ([facility]) ID Date Data Source [id number] 08/16/2020 08:07:00 PM EDT TRAM ([facility]) Name Value Range Interpretation Code Description Data Libia rce(s) Supporting Document(s) blood urea nitrogen 10 mg/dL 7-18 Blood Urea Nitro gen ESTHE[place] ([facility]) glucose, fasting 83 mg/dL 70-100 Glucose, Fasting AT [facility] ([facility]) creatinine for GFR 0.63 mg/dL 0.55-1.30 Creatinine for GF R TRAM ([facility]) potassium serum 4.4 mEq/L 3.5-5.1 Potassium Serum ATHE ([facility]) sodium level 142 mEq/L 136-145 Sodium Level ESTHELA ([facility]) carbon dioxide level 29 mEq/L 21-32 Carbon Dioxide Level ESTHELA ([facility]) chloride level 109 mEq/L 98-107 Above high normal Chloride Level ESTHELA ([facility]) anion gap 4 mEq/L 8-16 Below low normal Anion Gap ESTHELA ( [facility]) AST/SGOT 5 U/L 7-37 Below low normal AST/SGOT TRAM ( [facility]) calcium level 9.4 mg/dL 8.5-10.1 Calcium Level ESTHELA ( [facility]) alkaline phosphatase 55 U/L 45-117 Alkaline Phosph atase ESTHELA ([facility]) ALT/SGPT 14 U/L 12-78 ALT/SGPT [place] ([facility]) bilirubin,total 0.5 mg/dL 0.2-1.0 Bilirubin,total ATHE ([facility]) total protein 7.1 gm/dL 6.4-8.2 Total Protein ESTHELA ( [facility]) albumin 4.2 gm/dL 3.2-5.2 Albumin ESTHELA ([facility]) albumin/globulin ratio 1.2-2.2 Albumin/globu dyana Ratio ESTHELA ([facility]) ID Date Data Source [id number] 08/16/2020 08:07:00 PM EDT ESTHELA ([facility]) Name Value Range Interpretation Code Description Data Libia rce(s) Supporting Document(s) white blood count 6.9 10 4.0-10.0 White Blood Count ESTHELA ([facility]) hemoglobin 13.7 g/dL 12.0-15.5 Hemoglobin ESTHELA ([facility]) red blood count 4.64 10 4.00-5.40 Red Blood Count ATHE ([facility]) mean corpuscular volume 93.3 fL 80.0-96.0 Mean Corpusc ular Volume ESTHELA ([facility]) hematocrit 43.3 % 36.0-47.0 Hematocrit ESTHELA ([facility]) mean corpuscular hemoglobin 29.5 pg 27.0-33.0 Mean Cor puscular Hemoglobin ESTHELA ([facility]) red cell distribution width 14.1 % 11.5-14.5 Red Cell Distribution Width ESTHELA ([facility]) mean corpuscular HGB conc 31.6 g/dL 32.0-36.5 Below low maira l Mean Corpuscular HGB Conc ESTHELA ([facility]) neutrophils % 59.9 % 36.0-66.0 Neutrophils % TRAM ( [facility]) platelet count, automated 242 10 150-450 Platelet C ount, Automated ESTHELA ([facility]) lymph % 29.3 % 24.0-44.0 Lymph % ESTHELA ([facility]) mono % 6.2 % 2.0-8.0 [place] % ESTHELA ([facility]) eos % 3.9 % 0.0-3.0 Above high normal Eos % ESTHELA ([facility]) immature granulocyte % 0.3 % 0-3.0 Immature Gran ulocyte % ESTHELA ([facility]) baso % 0.4 % 0.0-1.0 Baso % ESTHELA ([facility]) nucleated red blood cell % 0.0 % 0-0 Nucleated Red Blood Cell % ESTHELA ([facility]) neutrophils # 4.2 10 1.5-8.5 Neutrophils # ESTHELA ( [facility]) lymph # 2.0 10 1.5-5.0 Lymph # ESTHELA ([facility]) mono # 0.4 10 0.0-0.8 [place] # ESTHELA ([facility]) eos # 0.3 10 0.0-0.5 Eos # ESTHELA ([facility]) baso # 0.0 10 0.0-0.2 Baso # ESTHELA ([facility]) ID Date Data Source [id number] 08/16/2020 08:07:00 PM EDT [facility]) Name Value Range Interpretation Code Description Data Libia rce(s) Supporting Document(s) HCG, serum qualitative negative negative HCG, Serum Qu alitative [facility]) ID Date Data Source [id number] 08/16/2020 08:07:00 PM EDT [facility]) Name Value Range Interpretation Code Description Data Libia rce(s) Supporting Document(s) glucose, fasting 83 mg/dL 70-100 Glucose, Fasting AT [facility] ([facility]) creatinine for GFR 0.63 mg/dL 0.55-1.30 Creatinine for GF R TRAM ([facility]) blood urea nitrogen 10 mg/dL 7-18 Blood Urea Nitro gen ESTHELA ([facility]) sodium level 142 mEq/L 136-145 Sodium Level ESTHELA ([facility]) chloride level 109 mEq/L 98-107 Above high normal Chloride Level TRAM ([facility]) potassium serum 4.4 mEq/L 3.5-5.1 Potassium Serum ATHE NA ([facility]) anion gap 4 mEq/L 8-16 Below low normal Anion Gap TRAM ( [facility]) carbon dioxide level 29 mEq/L 21-32 Carbon Dioxide Level TRAM ([facility]) calcium level 9.4 mg/dL 8.5-10.1 Calcium Level ESTHELA ( [facility]) ALT/SGPT 14 U/L 12-78 ALT/SGPT ESTHELA ([facility]) AST/SGOT 5 U/L 7-37 Below low normal AST/SGOT ESTHELA ( [facility]) bilirubin,total 0.5 mg/dL 0.2-1.0 Bilirubin,total ATHE NA ([facility]) alkaline phosphatase 55 U/L 45-117 Alkaline Phosph atase ESTHELA ([facility]) total protein 7.1 gm/dL 6.4-8.2 Total Protein ESTHELA ( [facility]) albumin 4.2 gm/dL 3.2-5.2 Albumin ESTHELA ([facility]) albumin/globulin ratio 1.2-2.2 Albumin/globu dyana Ratio ESTHELA ([facility]) ID Date Data Source [id number] 08/16/2020 08:07:00 PM EDT ESTHELA ([facility]) Name Value Range Interpretation Code Description Data Libia rce(s) Supporting Document(s) white blood count 6.9 10 4.0-10.0 White Blood Count ESTHELA ([facility]) red blood count 4.64 10 4.00-5.40 Red Blood Count ATHE ([facility]) hematocrit 43.3 % 36.0-47.0 Hematocrit ESTHELA ([facility]) hemoglobin 13.7 g/dL 12.0-15.5 Hemoglobin ESTHELA ([facility]) mean corpuscular volume 93.3 fL 80.0-96.0 Mean Corpusc ular Volume ESTHELA ([facility]) mean corpuscular hemoglobin 29.5 pg 27.0-33.0 Mean Cor puscular Hemoglobin ESTHELA ([facility]) mean corpuscular HGB conc 31.6 g/dL 32.0-36.5 Below low maira l Mean Corpuscular HGB Conc ESTHELA ([facility]) platelet count, automated 242 10 150-450 Platelet C ount, Automated ESTHELA ([facility]) red cell distribution width 14.1 % 11.5-14.5 Red Cell Distribution Width ESTHELA ([facility]) neutrophils % 59.9 % 36.0-66.0 Neutrophils % ESTHELA ( [facility]) mono % 6.2 % 2.0-8.0 [place] % ESTHELA ([facility]) lymph % 29.3 % 24.0-44.0 Lymph % ESTHELA ([facility]) eos % 3.9 % 0.0-3.0 Above high normal Eos % ESTHELA ([facility]) immature granulocyte % 0.3 % 0-3.0 Immature Gran ulocyte % ESTHELA ([facility]) baso % 0.4 % 0.0-1.0 Baso % TRAM ([facility]) nucleated red blood cell % 0.0 % 0-0 Nucleated Red Blood Cell % TRAM ([facility]) neutrophils # 4.2 10 1.5-8.5 Neutrophils # TRAM ( [facility]) lymph # 2.0 10 1.5-5.0 Lymph # ESTHELA ([facility]) mono # 0.4 10 0.0-0.8 [place] # ESTHELA ([facility]) eos # 0.3 10 0.0-0.5 Eos # ESTHELA ([facility]) baso # 0.0 10 0.0-0.2 Baso # TRAM ([facility]) ID Date Data Source [id number] 08/16/2020 08:07:00 PM EDT TRAM ([facility] [facility] Name Value Range Interpretation Code Description Data Libia rce(s) Supporting Document(s) HCG, serum qualitative negative negative HCG, Serum Qu alitative TRAM ([facility]) ID Date Data Source [id number] 08/16/2020 08:07:00 PM EDT TRAM ([facility]) Name Value Range Interpretation Code Description Data Libia rce(s) Supporting Document(s) glucose, fasting 83 mg/dL 70-100 Glucose, Fasting AT AMY ([facility]) blood urea nitrogen 10 mg/dL 7-18 Blood Urea Nitro gen ESTHELA ([facility]) creatinine for GFR 0.63 mg/dL 0.55-1.30 Creatinine for GF R ESTHELA ([facility]) potassium serum 4.4 mEq/L 3.5-5.1 Potassium Serum ATHE NA ([facility]) sodium level 142 mEq/L 136-145 Sodium Level ESTHELA ([facility]) chloride level 109 mEq/L 98-107 Above high normal Chloride Level ESTHELA ([facility]) anion gap 4 mEq/L 8-16 Below low normal Anion Gap ESTHELA ( [facility]) carbon dioxide level 29 mEq/L 21-32 Carbon Dioxide Level TRAM ([facility]) calcium level 9.4 mg/dL 8.5-10.1 Calcium Level TRAM ( [facility]) AST/SGOT 5 U/L 7-37 Below low normal AST/SGOT ESTHELA ( [facility]) ALT/SGPT 14 U/L 12-78 ALT/SGPT ESTHELA ([facility]) alkaline phosphatase 55 U/L 45-117 Alkaline Phosph atase ESTHELA ([facility]) bilirubin,total 0.5 mg/dL 0.2-1.0 Bilirubin,total ATHE ([facility]) total protein 7.1 gm/dL 6.4-8.2 Total Protein ESTHELA ( [facility]) albumin 4.2 gm/dL 3.2-5.2 Albumin ESTHELA ([facility]) albumin/globulin ratio 1.2-2.2 Albumin/globu dyana Ratio ESTHELA ([facility]) ID Date Data Source [id number] 08/16/2020 08:07:00 PM EDT TRAM ([facility]) Name Value Range Interpretation Code Description Data Libia rce(s) Supporting Document(s) white blood count 6.9 10 4.0-10.0 White Blood Count ESTHELA ([facility]) hemoglobin 13.7 g/dL 12.0-15.5 Hemoglobin ESTHELA ([facility]) red blood count 4.64 10 4.00-5.40 Red Blood Count ATHE NA ([facility]) hematocrit 43.3 % 36.0-47.0 Hematocrit ESTHELA ([facility]) mean corpuscular hemoglobin 29.5 pg 27.0-33.0 Mean Cor puscular Hemoglobin ESTHELA ([facility]) mean corpuscular volume 93.3 fL 80.0-96.0 Mean Corpusc ular Volume ESTHELA ([facility]) mean corpuscular HGB conc 31.6 g/dL 32.0-36.5 Below low maira l Mean Corpuscular HGB Conc ESTHELA ([facility]) red cell distribution width 14.1 % 11.5-14.5 Red Cell Distribution Width ESTHELA ([facility]) platelet count, automated 242 10 150-450 Platelet C ount, Automated ESTHELA ([facility]) lymph % 29.3 % 24.0-44.0 Lymph % ESTHELA ([facility]) neutrophils % 59.9 % 36.0-66.0 Neutrophils % ESTHELA ( [facility]) mono % 6.2 % 2.0-8.0 [place] % ESTHELA ([facility]) eos % 3.9 % 0.0-3.0 Above high normal Eos % ESTHELA ([facility]) baso % 0.4 % 0.0-1.0 Baso % ESTHELA ([facility]) nucleated red blood cell % 0.0 % 0-0 Nucleated Red Blood Cell % ESTHELA ([facility]) immature granulocyte % 0.3 % 0-3.0 Immature Gran ulocyte % ESTHELA ([facility]) neutrophils # 4.2 10 1.5-8.5 Neutrophils # ESTHELA ( [facility]) lymph # 2.0 10 1.5-5.0 Lymph # ESTHELA ([facility]) mono # 0.4 10 0.0-0.8 [place] # ESTHELA ([facility]) eos # 0.3 10 0.0-0.5 Eos # ESTHELA ([facility]) baso # 0.0 10 0.0-0.2 Baso # ESTHELA ([facility]) ID Date Data Source [id number] 08/16/2020 08:07:00 PM EDT TRAM ([facility]) Name Value Range Interpretation Code Description Data Libia rce(s) Supporting Document(s) HCG, serum qualitative negative negative HCG, Serum Qu alitative ESTHELA ([facility]) ID Date Data Source [id number] 08/16/2020 08:07:00 PM EDT ESTHELA ([facility]) Name Value Range Interpretation Code Description Data Libia rce(s) Supporting Document(s) blood urea nitrogen 10 mg/dL 7-18 Blood Urea Nitro gen TRAM ([facility]) glucose, fasting 83 mg/dL 70-100 Glucose, Fasting AT [facility] ([facility]) creatinine for GFR 0.63 mg/dL 0.55-1.30 Creatinine for GF R TRAM ([facility]) sodium level 142 mEq/L 136-145 Sodium Level ESTHELA ([facility]) chloride level 109 mEq/L 98-107 Above high normal Chloride Level ESTHELA ([facility]) potassium serum 4.4 mEq/L 3.5-5.1 Potassium Serum ATHE ([facility]) carbon dioxide level 29 mEq/L 21-32 Carbon Dioxide Level ESTHELA ([facility]) anion gap 4 mEq/L 8-16 Below low normal Anion Gap ESTHELA ( [facility]) calcium level 9.4 mg/dL 8.5-10.1 Calcium Level ESTHELA ( [facility]) AST/SGOT 5 U/L 7-37 Below low normal AST/SGOT ESTHELA ( [facility]) alkaline phosphatase 55 U/L 45-117 Alkaline Phosph atase TRAM ([facility]) ALT/SGPT 14 U/L 12-78 ALT/SGPT ESTHELA ([facility]) bilirubin,total 0.5 mg/dL 0.2-1.0 Bilirubin,total ATHE ([facility]) total protein 7.1 gm/dL 6.4-8.2 Total Protein ESTHELA ( [facility]) albumin 4.2 gm/dL 3.2-5.2 Albumin ESTHELA ([facility]) albumin/globulin ratio 1.2-2.2 Albumin/globu dyana Ratio ESTHELA ([facility]) ID Date Data Source [id number] 08/16/2020 08:07:00 PM EDT ESTHELA ([facility]) Name Value Range Interpretation Code Description Data Libia rce(s) Supporting Document(s) white blood count 6.9 10 4.0-10.0 White Blood Count ESHTELA ([facility]) red blood count 4.64 10 4.00-5.40 Red Blood Count ATHE ([facility]) hemoglobin 13.7 g/dL 12.0-15.5 Hemoglobin ESTHELA ([facility]) mean corpuscular volume 93.3 fL 80.0-96.0 Mean Corpusc ular Volume ESTHELA ([facility]) hematocrit 43.3 % 36.0-47.0 Hematocrit ESTHELA ([facility]) mean corpuscular hemoglobin 29.5 pg 27.0-33.0 Mean Cor puscular Hemoglobin ESTHELA ([facility]) mean corpuscular HGB conc 31.6 g/dL 32.0-36.5 Below low maira l Mean Corpuscular HGB Conc ESTHELA ([facility]) red cell distribution width 14.1 % 11.5-14.5 Red Cell Distribution Width ESTHELA ([facility]) platelet count, automated 242 10 150-450 Platelet C ount, Automated ESTHELA ([facility]) neutrophils % 59.9 % 36.0-66.0 Neutrophils % ESTHELA ( [facility]) lymph % 29.3 % 24.0-44.0 Lymph % ESTHELA ([facility]) mono % 6.2 % 2.0-8.0 [place] % ESTHELA ([facility]) baso % 0.4 % 0.0-1.0 Baso % ESTHELA ([facility]) eos % 3.9 % 0.0-3.0 Above high normal Eos % ESTHELA ([facility]) immature granulocyte % 0.3 % 0-3.0 Immature Gran ulocyte % ESTHELA ([facility]) nucleated red blood cell % 0.0 % 0-0 Nucleated Red Blood Cell % ESTHELA ([facility]) lymph # 2.0 10 1.5-5.0 Lymph # ESTHELA ([facility]) neutrophils # 4.2 10 1.5-8.5 Neutrophils # ESTHELA ( [facility]) mono # 0.4 10 0.0-0.8 [place] # ESTHELA ([facility]) eos # 0.3 10 0.0-0.5 Eos # ESTHELA ([facility]) baso # 0.0 10 0.0-0.2 Baso # ESTHELA ([facility]) ID Date Data Source [id number] 08/16/2020 08:07:00 PM EDT TRAM ([facility]) Name Value Range Interpretation Code Description Data Libia rce(s) Supporting Document(s) HCG, serum qualitative negative negative HCG, Serum Qu alitative TRAM ([facility]) ID Date Data Source [id number] 08/16/2020 08:07:00 PM EDT TRAM ([facility]) Name Value Range Interpretation Code Description Data Libia rce(s) Supporting Document(s) glucose, fasting 83 mg/dL 70-100 Glucose, Fasting AT AMY ([facility]) blood urea nitrogen 10 mg/dL 7-18 Blood Urea Nitro gen TRAM ([facility]) creatinine for GFR 0.63 mg/dL 0.55-1.30 Creatinine for GF R TRAM ([facility]) sodium level 142 mEq/L 136-145 Sodium Level TRAM (No [facility]) potassium serum 4.4 mEq/L 3.5-5.1 Potassium Serum ATH NA ([facility]) chloride level 109 mEq/L 98-107 Above high normal Chloride Level ESTHELA ([facility]) carbon dioxide level 29 mEq/L 21-32 Carbon Dioxide Level ESTHELA ([facility]) anion gap 4 mEq/L 8-16 Below low normal Anion Gap ESTHELA ( [facility]) calcium level 9.4 mg/dL 8.5-10.1 Calcium Level ESTHELA ( [facility]) ALT/SGPT 14 U/L 12-78 ALT/SGPT ESTHELA ([facility]) AST/SGOT 5 U/L 7-37 Below low normal AST/SGOT ESTHELA ( [facility]) alkaline phosphatase 55 U/L 45-117 Alkaline Phosph atase ESTHELA ([facility]) bilirubin,total 0.5 mg/dL 0.2-1.0 Bilirubin,total ATHE ([facility]) total protein 7.1 gm/dL 6.4-8.2 Total Protein ESTHELA ( [facility]) albumin/globulin ratio 1.2-2.2 Albumin/globu dyana Ratio ESTHELA ([facility]) albumin 4.2 gm/dL 3.2-5.2 Albumin ESTHELA ([facility]) ID Date Data Source [id number] 08/16/2020 08:07:00 PM EDT ESTHELA ([facility]) Name Value Range Interpretation Code Description Data Libia rce(s) Supporting Document(s) white blood count 6.9 10 4.0-10.0 White Blood Count ESTHELA ([facility]) red blood count 4.64 10 4.00-5.40 Red Blood Count ATHE ([facility]) hemoglobin 13.7 g/dL 12.0-15.5 Hemoglobin ESTHELA ([facility]) hematocrit 43.3 % 36.0-47.0 Hematocrit ESTHELA ([facility]) mean corpuscular volume 93.3 fL 80.0-96.0 Mean Corpusc ular Volume ESTHELA ([facility]) mean corpuscular hemoglobin 29.5 pg 27.0-33.0 Mean Cor puscular Hemoglobin ESTHELA ([facility]) mean corpuscular HGB conc 31.6 g/dL 32.0-36.5 Below low maira l Mean Corpuscular HGB Conc TRAM ([facility]) platelet count, automated 242 10 150-450 Platelet C ount, Automated ESTHELA ([facility]) red cell distribution width 14.1 % 11.5-14.5 Red Cell Distribution Width ESTHELA ([facility]) lymph % 29.3 % 24.0-44.0 Lymph % ESTHELA ([facility]) neutrophils % 59.9 % 36.0-66.0 Neutrophils % ESTHELA ( [facility]) mono % 6.2 % 2.0-8.0 [place] % TRAM ([facility]) eos % 3.9 % 0.0-3.0 Above high normal Eos % TRAM ([facility]) baso % 0.4 % 0.0-1.0 Baso % TRAM ([facility]) immature granulocyte % 0.3 % 0-3.0 Immature Gran ulocyte % TRAM ([facility]) nucleated red blood cell % 0.0 % 0-0 Nucleated Red Blood Cell % TRAM ([facility]) lymph # 2.0 10 1.5-5.0 Lymph # TRAM ([facility]) neutrophils # 4.2 10 1.5-8.5 Neutrophils # ESTHELA ( [facility]) mono # 0.4 10 0.0-0.8 [place] # ESTHELA ([facility]) baso # 0.0 10 0.0-0.2 Baso # TRAM ([facility]) eos # 0.3 10 0.0-0.5 Eos # TRAM ([facility]) ID Date Data Source [id number] 08/16/2020 08:07:00 PM EDT TRAM ([facility]) Name Value Range Interpretation Code Description Data Libia rce(s) Supporting Document(s) HCG, serum qualitative negative negative HCG, Serum Qu alitative TRAM ([facility]) ID Date Data Source [id number] 08/16/2020 08:07:00 PM EDT TRAM ([facility]) Name Value Range Interpretation Code Description Data Libia rce(s) Supporting Document(s) glucose, fasting 83 mg/dL 70-100 Glucose, Fasting AT AMY ([facility]) blood urea nitrogen 10 mg/dL 7-18 Blood Urea Nitro gen ESTHELA ([facility]) creatinine for GFR 0.63 mg/dL 0.55-1.30 Creatinine for GF R ESTHELA ([facility]) sodium level 142 mEq/L 136-145 Sodium Level ESTHELA (No [facility]) potassium serum 4.4 mEq/L 3.5-5.1 Potassium Serum ATHE ([facility]) chloride level 109 mEq/L 98-107 Above high normal Chloride Level TRAM ([facility]) carbon dioxide level 29 mEq/L 21-32 Carbon Dioxide Level ESTHELA ([facility]) anion gap 4 mEq/L 8-16 Below low normal Anion Gap ESTHELA ( [facility]) AST/SGOT 5 U/L 7-37 Below low normal AST/SGOT ESTHELA ( [facility]) calcium level 9.4 mg/dL 8.5-10.1 Calcium Level ESTHELA ( [facility]) ALT/SGPT 14 U/L 12-78 ALT/SGPT ESTHELA ([facility]) bilirubin,total 0.5 mg/dL 0.2-1.0 Bilirubin,total ATHE ([facility]) alkaline phosphatase 55 U/L 45-117 Alkaline Phosph atase ESTHELA ([facility]) albumin 4.2 gm/dL 3.2-5.2 Albumin ESTHELA ([facility]) total protein 7.1 gm/dL 6.4-8.2 Total Protein ESTHELA ( [facility]) albumin/globulin ratio 1.2-2.2 Albumin/globu dyana Ratio TRAM ([facility]) ID Date Data Source [id number] 08/16/2020 08:07:00 PM EDT TRAM ([facility]) Name Value Range Interpretation Code Description Data Libia rce(s) Supporting Document(s) white blood count 6.9 10 4.0-10.0 White Blood Count ESTHELA ([facility]) red blood count 4.64 10 4.00-5.40 Red Blood Count ATHE NA ([facility]) hemoglobin 13.7 g/dL 12.0-15.5 Hemoglobin ESTHELA ([facility]) hematocrit 43.3 % 36.0-47.0 Hematocrit ESTHELA ([facility]) mean corpuscular volume 93.3 fL 80.0-96.0 Mean Corpusc ular Volume ESTHELA ([facility]) mean corpuscular hemoglobin 29.5 pg 27.0-33.0 Mean Cor puscular Hemoglobin ESTHELA ([facility]) mean corpuscular HGB conc 31.6 g/dL 32.0-36.5 Below low maira l Mean Corpuscular HGB Conc ESTHELA ([facility]) red cell distribution width 14.1 % 11.5-14.5 Red Cell Distribution Width ESTHELA ([facility]) platelet count, automated 242 10 150-450 Platelet C ount, Automated ESTHELA ([facility]) neutrophils % 59.9 % 36.0-66.0 Neutrophils % ESTHELA ( [facility]) lymph % 29.3 % 24.0-44.0 Lymph % ESTHELA ([facility]) mono % 6.2 % 2.0-8.0 [place] % TRAM ([facility]) eos % 3.9 % 0.0-3.0 Above high normal Eos % ESTHELA ([facility]) baso % 0.4 % 0.0-1.0 Baso % TRAM ([facility]) immature granulocyte % 0.3 % 0-3.0 Immature Gran ulocyte % ESTHELA ([facility]) nucleated red blood cell % 0.0 % 0-0 Nucleated Red Blood Cell % ESTHELA ([facility]) neutrophils # 4.2 10 1.5-8.5 Neutrophils # ESTHELA ( [facility]) lymph # 2.0 10 1.5-5.0 Lymph # ESTHELA ([facility]) mono # 0.4 10 0.0-0.8 [place] # ESTHELA ([facility]) eos # 0.3 10 0.0-0.5 Eos # ESTHELA ([facility]) baso # 0.0 10 0.0-0.2 Baso # ESTHELA ([facility]) ID Date Data Source [id number] 08/16/2020 08:07:00 PM EDT TRAM ([facility]) Name Value Range Interpretation Code Description Data Libia rce(s) Supporting Document(s) HCG, serum qualitative negative negative HCG, Serum Qu alitative TRAM ([facility]) ID Date Data Source [id number] 08/16/2020 08:07:00 PM EDT TRAM ([facility]) Name Value Range Interpretation Code Description Data Libia rce(s) Supporting Document(s) glucose, fasting 83 mg/dL 70-100 Glucose, Fasting AT [facility]) blood urea nitrogen 10 mg/dL 7-18 Blood Urea Nitro gen TRAM ([facility]) creatinine for GFR 0.63 mg/dL 0.55-1.30 Creatinine for GF R TRAM ([facility]) sodium level 142 mEq/L 136-145 Sodium Level TRAM ([facility]) potassium serum 4.4 mEq/L 3.5-5.1 Potassium Serum ATHE NA ([facility]) chloride level 109 mEq/L 98-107 Above high normal Chloride Level TRAM ([facility]) carbon dioxide level 29 mEq/L 21-32 Carbon Dioxide Level ESTHELA ([facility]) anion gap 4 mEq/L 8-16 Below low normal Anion Gap ESTHELA ( [facility]) calcium level 9.4 mg/dL 8.5-10.1 Calcium Level ESTHELA ( [facility]) AST/SGOT 5 U/L 7-37 Below low normal AST/SGOT ESTHELA ( [facility]) ALT/SGPT 14 U/L 12-78 ALT/SGPT ESTHELA ([facility]) alkaline phosphatase 55 U/L 45-117 Alkaline Phosph atase ESTHELA ([facility]) bilirubin,total 0.5 mg/dL 0.2-1.0 Bilirubin,total ATHE NA ([facility]) total protein 7.1 gm/dL 6.4-8.2 Total Protein ESTHELA ( [facility]) albumin 4.2 gm/dL 3.2-5.2 Albumin ESTHELA ([facility]) albumin/globulin ratio 1.2-2.2 Albumin/globu dyana Ratio ESTHELA ([facility]) ID Date Data Source [id number] 08/16/2020 08:07:00 PM EDT ESTHELA ([facility]) Name Value Range Interpretation Code Description Data Libia rce(s) Supporting Document(s) white blood count 6.9 10 4.0-10.0 White Blood Count ESTHELA ([facility]) red blood count 4.64 10 4.00-5.40 Red Blood Count ATHE ([facility]) hemoglobin 13.7 g/dL 12.0-15.5 Hemoglobin ESTHELA ([facility]) hematocrit 43.3 % 36.0-47.0 Hematocrit ESTHELA ([facility]) mean corpuscular volume 93.3 fL 80.0-96.0 Mean Corpusc ular Volume ESTHELA ([facility]) mean corpuscular hemoglobin 29.5 pg 27.0-33.0 Mean Cor puscular Hemoglobin ESTHELA ([facility]) mean corpuscular HGB conc 31.6 g/dL 32.0-36.5 Below low maira l Mean Corpuscular HGB Conc ESTHELA ([facility]) platelet count, automated 242 10 150-450 Platelet C ount, Automated ESTHELA ([facility]) red cell distribution width 14.1 % 11.5-14.5 Red Cell Distribution Width ESTHELA ([facility]) neutrophils % 59.9 % 36.0-66.0 Neutrophils % ESTHELA ( [facility]) lymph % 29.3 % 24.0-44.0 Lymph % ESTHELA ([facility]) mono % 6.2 % 2.0-8.0 [place] % ESTHELA ([facility]) eos % 3.9 % 0.0-3.0 Above high normal Eos % ESTHELA ([facility]) baso % 0.4 % 0.0-1.0 Baso % TRAM ([facility]) immature granulocyte % 0.3 % 0-3.0 Immature Gran ulocyte % TRAM ([facility]) nucleated red blood cell % 0.0 % 0-0 Nucleated Red Blood Cell % TRAM ([facility]) lymph # 2.0 10 1.5-5.0 Lymph # TRAM ([facility]) neutrophils # 4.2 10 1.5-8.5 Neutrophils # TRAM ( [facility]) mono # 0.4 10 0.0-0.8 [place] # ESTHELA ([facility]) eos # 0.3 10 0.0-0.5 Eos # ESTHELA ([facility]) baso # 0.0 10 0.0-0.2 Baso # ESTHELA ([facility]) ID Date Data Source [id number] 08/16/2020 08:07:00 PM EDT TRAM ([facility]) Name Value Range Interpretation Code Description Data Libia rce(s) Supporting Document(s) HCG, serum qualitative negative negative HCG, Serum Qu alitative TRAM ([facility]) ID Date Data Source [id number] 08/16/2020 08:07:00 PM EDT TRAM ([facility]) Name Value Range Interpretation Code Description Data Libia rce(s) Supporting Document(s) glucose, fasting 83 mg/dL 70-100 Glucose, Fasting AT [facility] ([facility]) creatinine for GFR 0.63 mg/dL 0.55-1.30 Creatinine for GF R TRAM ([facility]) blood urea nitrogen 10 mg/dL 7-18 Blood Urea Nitro gen TRAM ([facility]) sodium level 142 mEq/L 136-145 Sodium Level ESTHELA ([facility]) potassium serum 4.4 mEq/L 3.5-5.1 Potassium Serum ATHE NA ([facility]) chloride level 109 mEq/L 98-107 Above high normal Chloride Level ESTHELA ([facility]) carbon dioxide level 29 mEq/L 21-32 Carbon Dioxide Level ESTHELA ([facility]) anion gap 4 mEq/L 8-16 Below low normal Anion Gap ESTHELA ( [facility]) calcium level 9.4 mg/dL 8.5-10.1 Calcium Level ESTHELA ( [facility]) AST/SGOT 5 U/L 7-37 Below low normal AST/SGOT ESTHELA ( [facility]) ALT/SGPT 14 U/L 12-78 ALT/SGPT ESTHELA ([facility]) alkaline phosphatase 55 U/L 45-117 Alkaline Phosph atase ESTHELA ([facility]) total protein 7.1 gm/dL 6.4-8.2 Total Protein ESTHELA ( [facility]) bilirubin,total 0.5 mg/dL 0.2-1.0 Bilirubin,total ATHE ([facility]) albumin 4.2 gm/dL 3.2-5.2 Albumin ESTHELA ([facility]) albumin/globulin ratio 1.2-2.2 Albumin/globu dyana Ratio ESTHELA ([facility]) ID Date Data Source [id number] 08/16/2020 08:07:00 PM EDT ESTHELA ([facility]) Name Value Range Interpretation Code Description Data Libia rce(s) Supporting Document(s) white blood count 6.9 10 4.0-10.0 White Blood Count ESTHELA ([facility]) hemoglobin 13.7 g/dL 12.0-15.5 Hemoglobin ESTHELA ([facility]) red blood count 4.64 10 4.00-5.40 Red Blood Count ATHE ([facility]) hematocrit 43.3 % 36.0-47.0 Hematocrit ESTHELA ([facility]) mean corpuscular hemoglobin 29.5 pg 27.0-33.0 Mean Cor puscular Hemoglobin ESTHELA ([facility]) mean corpuscular volume 93.3 fL 80.0-96.0 Mean Corpusc ular Volume ESTHELA ([facility]) mean corpuscular HGB conc 31.6 g/dL 32.0-36.5 Below low maira l Mean Corpuscular HGB Conc ESTHELA ([facility]) red cell distribution width 14.1 % 11.5-14.5 Red Cell Distribution Width ESTHELA ([facility]) platelet count, automated 242 10 150-450 Platelet C ount, Automated ESTHELA ([facility]) neutrophils % 59.9 % 36.0-66.0 Neutrophils % TRAM ( [facility]) mono % 6.2 % 2.0-8.0 [place] % TRAM ([facility]) lymph % 29.3 % 24.0-44.0 Lymph % TRAM ([facility]) eos % 3.9 % 0.0-3.0 Above high normal Eos % TRAM ([facility]) baso % 0.4 % 0.0-1.0 Baso % TRAM ([facility]) immature granulocyte % 0.3 % 0-3.0 Immature Gran ulocyte % TRAM ([facility]) nucleated red blood cell % 0.0 % 0-0 Nucleated Red Blood Cell % TRAM ([facility]) neutrophils # 4.2 10 1.5-8.5 Neutrophils # ESTHELA ( [facility]) lymph # 2.0 10 1.5-5.0 Lymph # ESTHELA ([facility]) mono # 0.4 10 0.0-0.8 [place] # ESTHELA ([facility]) eos # 0.3 10 0.0-0.5 Eos # TRAM ([facility]) baso # 0.0 10 0.0-0.2 Baso # ESTHELA ([facility]) ID Date Data Source [id number] 08/09/2020 07:48:00 PM [facility] Name Value Range Interpretation Code Description Data Libia rce(s) Supporting Document(s) ID Date Data Source [id number] 08/09/2020 07:48:00 PM EDT TRAM ([facility]) Name Value Range Interpretation Code Description Data Libia rce(s) Supporting Document(s) ID Date Data Source [id number] 08/09/2020 07:48:00 PM EDT [facility]) Name Value Range Interpretation Code Description Data Libia rce(s) Supporting Document(s) ID Date Data Source [id number] 08/09/2020 07:48:00 PM EDT [facility]) Name Value Range Interpretation Code Description Data Libia rce(s) Supporting Document(s) ID Date Data Source [id number] 08/09/2020 07:48:00 PM EDT [facility]) Name Value Range Interpretation Code Description Data Libia rce(s) Supporting Document(s) ID Date Data Source [id number] 08/09/2020 07:48:00 PM EDT [facility]) Name Value Range Interpretation Code Description Data Libia rce(s) Supporting Document(s) ID Date Data Source [id number] 08/09/2020 07:48:00 PM EDT [facility]) Name Value Range Interpretation Code Description Data Libia rce(s) Supporting Document(s) ID Date Data Source [id number] 08/09/2020 07:48:00 PM EDT [facility]) Name Value Range Interpretation Code Description Data Libia rce(s) Supporting Document(s) ID Date Data Source [id number] 08/09/2020 07:48:00 PM EDT EST[place] ([facility]) Name Value Range Interpretation Code Description Data Libia rce(s) Supporting Document(s) ID Date Data Source [id number] 08/09/2020 07:29:00 PM EDT TRAM ([facility]) Name Value Range Interpretation Code Description Data Libia rce(s) Supporting Document(s) istat HCT 37.0 % 38.0-51.0 Below low normal Istat HCT ESTHELA ( [facility]) istat glucose 89 mg/dL 70-105 Istat Glucose [place] ( [facility]) istat sodium 140 mEq/L 136-145 Istat Sodium [place]HE[place] (No [facility]) istat potassium 4.2 mEq/L 3.5-5.1 Istat Potassium ATHE NA ([facility]) istat Ca++ 5.0 mg/dL 4.5-5.3 Istat Ca++ [place] ([facility]) istat chloride 105 mEq/L 98-109 Istat Chloride TRAM ([facility]) istat CO2 28.0 mm/L 23.0-27.0 Above high normal Istat CO2 [place] ([facility]) istat BUN 11 mg/dL 8-26 Istat BUN [place] ([facility]) istat creatinine 0.7 mg/dL 0.6-1.3 Istat Creatinine AT AMY ([facility]) ID Date Data Source [id number] 08/09/2020 07:29:00 PM EDT TRAM ([facility]) Name Value Range Interpretation Code Description Data Libia rce(s) Supporting Document(s) istat HCT 37.0 % 38.0-51.0 Below low normal Istat HCT ESTHE[place] ( [facility]) istat sodium 140 mEq/L 136-145 Istat Sodium [place] ([facility]) istat glucose 89 mg/dL 70-105 Istat Glucose [place] ( [facility]) istat Ca++ 5.0 mg/dL 4.5-5.3 Istat Ca++ [place] ([facility]) istat potassium 4.2 mEq/L 3.5-5.1 Istat Potassium ATHE NA ([facility]) istat BUN 11 mg/dL 8-26 Istat BUN [place] ([facility]) istat CO2 28.0 mm/L 23.0-27.0 Above high normal Istat CO2 [place] ([facility]) istat chloride 105 mEq/L 98-109 Istat Chloride [place] ([facility]) istat creatinine 0.7 mg/dL 0.6-1.3 Istat Creatinine AT [facility]) ID Date Data Source [id number] 08/09/2020 07:29:00 PM EDT [place] ([facility]) Name Value Range Interpretation Code Description Data Libia rce(s) Supporting Document(s) istat glucose 89 mg/dL 70-105 Istat Glucose [place] ( [facility]) istat HCT 37.0 % 38.0-51.0 Below low normal Istat HCT [place] ( [facility]) istat potassium 4.2 mEq/L 3.5-5.1 Istat Potassium ATHE NA ([facility]) istat sodium 140 mEq/L 136-145 Istat Sodium [place] ([facility]) istat Ca++ 5.0 mg/dL 4.5-5.3 Istat Ca++ [place] ([facility]) istat chloride 105 mEq/L 98-109 Istat Chloride [place] ([facility]) istat CO2 28.0 mm/L 23.0-27.0 Above high normal Istat CO2 [place] ([facility]) istat BUN 11 mg/dL 8-26 Istat BUN [place] ([facility]) istat creatinine 0.7 mg/dL 0.6-1.3 Istat Creatinine AT [facility]) ID Date Data Source [id number] 08/09/2020 07:29:00 PM EDT [facility]) Name Value Range Interpretation Code Description Data Libia rce(s) Supporting Document(s) istat HCT 37.0 % 38.0-51.0 Below low normal Istat HCT EST[place] ( [facility]) istat sodium 140 mEq/L 136-145 Istat Sodium [place] ([facility]) istat glucose 89 mg/dL 70-105 Istat Glucose [place] ( [facility]) istat potassium 4.2 mEq/L 3.5-5.1 Istat Potassium [facility] ([facility]) istat Ca++ 5.0 mg/dL 4.5-5.3 Istat Ca++ TRAM ([facility]) istat CO2 28.0 mm/L 23.0-27.0 Above high normal Istat CO2 [place] ([facility]) istat chloride 105 mEq/L 98-109 Istat Chloride TRAM ([facility]) istat creatinine 0.7 mg/dL 0.6-1.3 Istat Creatinine AT [facility]) istat BUN 11 mg/dL 8-26 Istat BUN [place] ([facility]) ID Date Data Source [id number] 08/09/2020 07:29:00 PM EDT [facility]) Name Value Range Interpretation Code Description Data Libia rce(s) Supporting Document(s) istat HCT 37.0 % 38.0-51.0 Below low normal Istat HCT [place] ( [facility]) istat glucose 89 mg/dL 70-105 Istat Glucose [place] ( [facility]) istat sodium 140 mEq/L 136-145 Istat Sodium [place] ([facility]) istat potassium 4.2 mEq/L 3.5-5.1 Istat Potassium ATHE NA ([facility]) istat chloride 105 mEq/L 98-109 Istat Chloride [place] ([facility]) istat Ca++ 5.0 mg/dL 4.5-5.3 Istat Ca++ [place] ([facility]) istat creatinine 0.7 mg/dL 0.6-1.3 Istat Creatinine AT [facility] ([facility]) istat BUN 11 mg/dL 8-26 Istat BUN [place] ([facility]) istat CO2 28.0 mm/L 23.0-27.0 Above high normal Istat CO2 TRAM ([facility]) ID Date Data Source [id number] 08/09/2020 07:29:00 PM EDT TRAM ([facility]) Name Value Range Interpretation Code Description Data Libia rce(s) Supporting Document(s) istat glucose 89 mg/dL 70-105 Istat Glucose [place] ( [facility]) istat HCT 37.0 % 38.0-51.0 Below low normal Istat HCT TRAM ( [facility]) istat potassium 4.2 mEq/L 3.5-5.1 Istat Potassium ATHE NA ([facility]) istat sodium 140 mEq/L 136-145 Istat Sodium [place] ([facility]) istat Ca++ 5.0 mg/dL 4.5-5.3 Istat Ca++ [place] ([facility]) istat chloride 105 mEq/L 98-109 Istat Chloride [place] ([facility]) istat CO2 28.0 mm/L 23.0-27.0 Above high normal Istat CO2 TRAM ([facility]) istat creatinine 0.7 mg/dL 0.6-1.3 Istat Creatinine AT [facility]) istat BUN 11 mg/dL 8-26 Istat BUN [place] ([facility]) ID Date Data Source [id number] 08/09/2020 07:29:00 PM EDT [place] ([facility]) Name Value Range Interpretation Code Description Data Libia rce(s) Supporting Document(s) istat glucose 89 mg/dL 70-105 Istat Glucose [place] ( [facility]) istat HCT 37.0 % 38.0-51.0 Below low normal Istat HCT [place] ( [facility]) istat sodium 140 mEq/L 136-145 Istat Sodium [place] ([facility]) istat potassium 4.2 mEq/L 3.5-5.1 Istat Potassium ATHE NA ([facility]) istat chloride 105 mEq/L 98-109 Istat Chloride [place] ([facility]) istat Ca++ 5.0 mg/dL 4.5-5.3 Istat Ca++ [place] ([facility]) istat BUN 11 mg/dL 8-26 Istat BUN [place] ([facility]) istat CO2 28.0 mm/L 23.0-27.0 Above high normal Istat CO2 [place] ([facility]) istat creatinine 0.7 mg/dL 0.6-1.3 Istat Creatinine AT AMY ([facility]) ID Date Data Source [id number] 08/09/2020 07:29:00 PM EDT [place] ([facility]) Name Value Range Interpretation Code Description Data Libia rce(s) Supporting Document(s) istat HCT 37.0 % 38.0-51.0 Below low normal Istat HCT [place] ( [facility]) istat glucose 89 mg/dL 70-105 Istat Glucose [place] ( [facility]) istat sodium 140 mEq/L 136-145 Istat Sodium [place] ([facility]) istat Ca++ 5.0 mg/dL 4.5-5.3 Istat Ca++ [place] ([facility]) istat potassium 4.2 mEq/L 3.5-5.1 Istat Potassium ATHE NA ([facility]) istat CO2 28.0 mm/L 23.0-27.0 Above high normal Istat CO2 [place] ([facility]) istat chloride 105 mEq/L 98-109 Istat Chloride [place] ([facility]) istat creatinine 0.7 mg/dL 0.6-1.3 Istat Creatinine AT [facility] ([facility]) istat BUN 11 mg/dL 8-26 Istat BUN TRAM ([facility]) ID Date Data Source [id number] 08/09/2020 07:29:00 PM EDT TRAM ([facility]) Name Value Range Interpretation Code Description Data Libia rce(s) Supporting Document(s) istat HCT 37.0 % 38.0-51.0 Below low normal Istat HCT [place] ( [facility]) istat glucose 89 mg/dL 70-105 Istat Glucose [place] ( [facility]) istat sodium 140 mEq/L 136-145 Istat Sodium [place] ([facility]) istat potassium 4.2 mEq/L 3.5-5.1 Istat Potassium ATHE NA ([facility]) istat Ca++ 5.0 mg/dL 4.5-5.3 Istat Ca++ [place] ([facility]) istat chloride 105 mEq/L 98-109 Istat Chloride [place] ([facility]) istat CO2 28.0 mm/L 23.0-27.0 Above high normal Istat CO2 [place] ([facility]) istat creatinine 0.7 mg/dL 0.6-1.3 Istat Creatinine AT [facility]) istat BUN 11 mg/dL 8-26 Istat BUN [place] ([facility]) ID Date Data Source [id number] 08/09/2020 07:27:00 PM EDT [facility]) Name Value Range Interpretation Code Description Data Libia rce(s) Supporting Document(s) istat B-HCG < 5.0 Istat B-HCG TRAM ([facility]) ID Date Data Source [id number] 08/09/2020 07:27:00 PM [facility] Name Value Range Interpretation Code Description Data Libia rce(s) Supporting Document(s) istat B-HCG < 5.0 Istat B-HCG TRAM ([facility]) ID Date Data Source [id number] 08/09/2020 07:27:00 PM [facility]T [facility] Name Value Range Interpretation Code Description Data Libia rce(s) Supporting Document(s) istat B-HCG < 5.0 Istat B-HCG TRAM ([facility]) ID Date Data Source [id number] 08/09/2020 07:27:00 PM EDT [facility]) Name Value Range Interpretation Code Description Data Libia rce(s) Supporting Document(s) istat B-HCG < 5.0 Istat B-HCG [place] ([facility]) ID Date Data Source [id number] 08/09/2020 07:27:00 PM EDT [facility]) Name Value Range Interpretation Code Description Data Libia rce(s) Supporting Document(s) istat B-HCG < 5.0 Istat B-HCG TRAM ([facility]) ID Date Data Source [id number] 08/09/2020 07:27:00 PM EDT TRAM ([facility]) Name Value Range Interpretation Code Description Data Libia rce(s) Supporting Document(s) istat B-HCG < 5.0 Istat B-HCG TRAM ([facility]) ID Date Data Source [id number] 08/09/2020 07:27:00 PM EDT [facility]) Name Value Range Interpretation Code Description Data Libia rce(s) Supporting Document(s) istat B-HCG < 5.0 Istat B-HCG TRAM ([facility]) ID Date Data Source [id number] 08/09/2020 07:27:00 PM EDT [facility]) Name Value Range Interpretation Code Description Data Libia rce(s) Supporting Document(s) istat B-HCG < 5.0 Istat B-HCG TRAM ([facility]) ID Date Data Source [id number] 08/09/2020 07:27:00 PM EDT [facility]) Name Value Range Interpretation Code Description Data Libia rce(s) Supporting Document(s) istat B-HCG < 5.0 Istat B-HCG [place] ([facility]) ID Date Data Source [id number] 08/09/2020 07:24:00 PM EDT [facility]) Name Value Range Interpretation Code Description Data Libia rce(s) Supporting Document(s) syphilis nonreactive nonreactive Syphilis [place] ([facility]) ID Date Data Source [id number] 08/09/2020 07:24:00 PM EDT [facility]) Name Value Range Interpretation Code Description Data Libia rce(s) Supporting Document(s) AST/SGOT 7 U/L 7-37 AST/SGOT [place] ([facility]) ALT/SGPT 15 U/L 12-78 ALT/SGPT [place] ([facility]) alkaline phosphatase 56 U/L 45-117 Alkaline Phosph atase [place] ([facility]) bilirubin,total 0.6 mg/dL 0.2-1.0 Bilirubin,total ATHE ([facility]) bilirubin,direct 0.2 mg/dL 0.0-0.2 Bilirubin,direct AT AMY ([facility]) total protein 6.8 gm/dL 6.4-8.2 Total Protein [place] ( [facility]) albumin 4.1 gm/dL 3.2-5.2 Albumin [place] ([facility]) albumin/globulin ratio 1.2-2.2 Albumin/globu dyana Ratio EST[place] ([facility]) ID Date Data Source [id number] 08/09/2020 07:24:00 PM EDT [place] ([facility]) Name Value Range Interpretation Code Description Data Libia rce(s) Supporting Document(s) white blood count 7.6 10 4.0-10.0 White Blood Count [place] ([facility]) red blood count 4.40 10 4.00-5.40 Red Blood Count ATHE ([facility]) hemoglobin 12.9 g/dL 12.0-15.5 Hemoglobin EST[place] ([facility]) hematocrit 40.5 % 36.0-47.0 Hematocrit [place] ([facility]) mean corpuscular volume 92.0 fL 80.0-96.0 Mean Corpusc ular Volume [place] ([facility]) mean corpuscular hemoglobin 29.3 pg 27.0-33.0 Mean Cor puscular Hemoglobin EST[place] ([facility]) mean corpuscular HGB conc 31.9 g/dL 32.0-36.5 Below low maira l Mean Corpuscular HGB Conc EST[place] ([facility]) red cell distribution width 14.4 % 11.5-14.5 Red Cell Distribution Width [place] ([facility]) platelet count, automated 262 10 150-450 Platelet C ount, Automated [place] ([facility]) neutrophils % 71.5 % 36.0-66.0 Above high normal Neutrophils % A THENA ([facility]) lymph % 20.9 % 24.0-44.0 Below low normal Lymph % EST[place]LA ( [facility]) mono % 4.8 % 2.0-8.0 [place] % ESTHELA ([facility]) eos % 2.0 % 0.0-3.0 Eos % EST[place] ([facility]) baso % 0.4 % 0.0-1.0 Baso % TRAM ([facility]) immature granulocyte % 0.4 % 0-3.0 Immature Gran ulocyte % ESTHELA ([facility]) nucleated red blood cell % 0.0 % 0-0 Nucleated Red Blood Cell % ESTHELA ([facility]) neutrophils # 5.4 10 1.5-8.5 Neutrophils # EST[place] ( [facility]) lymph # 1.6 10 1.5-5.0 Lymph # EST[place] ([facility]) mono # 0.4 10 0.0-0.8 [place] # ESTHELA ([facility]) eos # 0.2 10 0.0-0.5 Eos # [place] ([facility]) baso # 0.0 10 0.0-0.2 Baso # TRAM ([facility]) ID Date Data Source [id number] 08/09/2020 07:24:00 PM EDT TRAM ([facility]) Name Value Range Interpretation Code Description Data Libia rce(s) Supporting Document(s) syphilis nonreactive nonreactive Syphilis [place] ([facility]) ID Date Data Source [id number] 08/09/2020 07:24:00 PM EDT TRAM ([facility]) Name Value Range Interpretation Code Description Data Libia rce(s) Supporting Document(s) ALT/SGPT 15 U/L 12-78 ALT/SGPT [place] ([facility]) AST/SGOT 7 U/L 7-37 AST/SGOT [place] ([facility]) alkaline phosphatase 56 U/L 45-117 Alkaline Phosph atase [place] ([facility]) bilirubin,direct 0.2 mg/dL 0.0-0.2 Bilirubin,direct AT [facility] ([facility]) bilirubin,total 0.6 mg/dL 0.2-1.0 Bilirubin,total ATHE NA ([facility]) albumin 4.1 gm/dL 3.2-5.2 Albumin [place] ([facility]) total protein 6.8 gm/dL 6.4-8.2 Total Protein [place] ( [facility]) albumin/globulin ratio 1.2-2.2 Albumin/globu dyana Ratio EST[place] ([facility]) ID Date Data Source [id number] 08/09/2020 07:24:00 PM EDT EST[place] ([facility]) Name Value Range Interpretation Code Description Data Libia rce(s) Supporting Document(s) white blood count 7.6 10 4.0-10.0 White Blood Count [place] ([facility]) hematocrit 40.5 % 36.0-47.0 Hematocrit [place] ([facility]) red blood count 4.40 10 4.00-5.40 Red Blood Count ATHE NA ([facility]) hemoglobin 12.9 g/dL 12.0-15.5 Hemoglobin [place] ([facility]) mean corpuscular volume 92.0 fL 80.0-96.0 Mean Corpusc ular Volume [place] ([facility]) mean corpuscular hemoglobin 29.3 pg 27.0-33.0 Mean Cor puscular Hemoglobin [place] ([facility]) red cell distribution width 14.4 % 11.5-14.5 Red Cell Distribution Width [place] ([facility]) mean corpuscular HGB conc 31.9 g/dL 32.0-36.5 Below low maira l Mean Corpuscular HGB Conc EST[place] ([facility]) platelet count, automated 262 10 150-450 Platelet C ount, Automated [place] ([facility]) neutrophils % 71.5 % 36.0-66.0 Above high normal Neutrophils % A THENA ([facility]) lymph % 20.9 % 24.0-44.0 Below low normal Lymph % ESTHELA ( [facility]) mono % 4.8 % 2.0-8.0 [place] % ESTHELA ([facility]) baso % 0.4 % 0.0-1.0 Baso % EST[place] ([facility]) eos % 2.0 % 0.0-3.0 Eos % TRAM ([facility]) nucleated red blood cell % 0.0 % 0-0 Nucleated Red Blood Cell % TRAM ([facility]) immature granulocyte % 0.4 % 0-3.0 Immature Gran ulocyte % ESTHELA ([facility]) neutrophils # 5.4 10 1.5-8.5 Neutrophils # ESTHELA ( [facility]) lymph # 1.6 10 1.5-5.0 Lymph # EST[place]LA ([facility]) mono # 0.4 10 0.0-0.8 [place] # ESTHELA ([facility]) eos # 0.2 10 0.0-0.5 Eos # EST[place] ([facility]) baso # 0.0 10 0.0-0.2 Baso # TRAM ([facility]) ID Date Data Source [id number] 08/09/2020 07:24:00 PM EDT TRAM ([facility]) Name Value Range Interpretation Code Description Data Libia rce(s) Supporting Document(s) syphilis nonreactive nonreactive Syphilis [place] ([facility]) ID Date Data Source [id number] 08/09/2020 07:24:00 PM EDT TRAM ([facility]) Name Value Range Interpretation Code Description Data Libia rce(s) Supporting Document(s) AST/SGOT 7 U/L 7-37 AST/SGOT [place] ([facility]) alkaline phosphatase 56 U/L 45-117 Alkaline Phosph atase [place] ([facility]) ALT/SGPT 15 U/L 12-78 ALT/SGPT [place] ([facility]) bilirubin,total 0.6 mg/dL 0.2-1.0 Bilirubin,total ATHE ([facility]) bilirubin,direct 0.2 mg/dL 0.0-0.2 Bilirubin,direct AT AMY ([facility]) total protein 6.8 gm/dL 6.4-8.2 Total Protein EST[place] ( [facility]) albumin 4.1 gm/dL 3.2-5.2 Albumin EST[place] ([facility]) albumin/globulin ratio 1.2-2.2 Albumin/globu dyana Ratio EST[place] ([facility]) ID Date Data Source [id number] 08/09/2020 07:24:00 PM EDT EST[place] ([facility]) Name Value Range Interpretation Code Description Data Libia rce(s) Supporting Document(s) white blood count 7.6 10 4.0-10.0 White Blood Count EST[place] ([facility]) red blood count 4.40 10 4.00-5.40 Red Blood Count ATHE ([facility]) hematocrit 40.5 % 36.0-47.0 Hematocrit [place] ([facility]) hemoglobin 12.9 g/dL 12.0-15.5 Hemoglobin [place] ([facility]) mean corpuscular hemoglobin 29.3 pg 27.0-33.0 Mean Cor puscular Hemoglobin EST[place] ([facility]) mean corpuscular volume 92.0 fL 80.0-96.0 Mean Corpusc ular Volume EST[place] ([facility]) red cell distribution width 14.4 % 11.5-14.5 Red Cell Distribution Width EST[place] ([facility]) mean corpuscular HGB conc 31.9 g/dL 32.0-36.5 Below low maira l Mean Corpuscular HGB Conc EST[place] ([facility]) neutrophils % 71.5 % 36.0-66.0 Above high normal Neutrophils % A THENA ([facility]) lymph % 20.9 % 24.0-44.0 Below low normal Lymph % ESTHELA ( [facility]) platelet count, automated 262 10 150-450 Platelet C ount, Automated EST[place] ([facility]) eos % 2.0 % 0.0-3.0 Eos % EST[place] ([facility]) mono % 4.8 % 2.0-8.0 [place] % ESTHELA ([facility]) immature granulocyte % 0.4 % 0-3.0 Immature Gran ulocyte % EST[place]LA ([facility]) baso % 0.4 % 0.0-1.0 Baso % TRAM ([facility]) neutrophils # 5.4 10 1.5-8.5 Neutrophils # TRAM ( [facility]) nucleated red blood cell % 0.0 % 0-0 Nucleated Red Blood Cell % ESTHELA ([facility]) lymph # 1.6 10 1.5-5.0 Lymph # EST[place] ([facility]) mono # 0.4 10 0.0-0.8 [place] # ESTHELA ([facility]) eos # 0.2 10 0.0-0.5 Eos # ESTHELA ([facility]) baso # 0.0 10 0.0-0.2 Baso # ESTHELA ([facility]) ID Date Data Source [id number] 08/09/2020 07:24:00 PM EDT TRAM ([facility]) Name Value Range Interpretation Code Description Data Libia rce(s) Supporting Document(s) syphilis nonreactive nonreactive Syphilis EST[place] ([facility]) ID Date Data Source [id number] 08/09/2020 07:24:00 PM EDT TRAM ([facility]) Name Value Range Interpretation Code Description Data Libia rce(s) Supporting Document(s) ALT/SGPT 15 U/L 12-78 ALT/SGPT [place] ([facility]) AST/SGOT 7 U/L 7-37 AST/SGOT [place] ([facility]) bilirubin,total 0.6 mg/dL 0.2-1.0 Bilirubin,total ATHE NA ([facility]) alkaline phosphatase 56 U/L 45-117 Alkaline Phosph atase EST[place] ([facility]) albumin 4.1 gm/dL 3.2-5.2 Albumin [place] ([facility]) total protein 6.8 gm/dL 6.4-8.2 Total Protein ESTHE[place] ( [facility]) bilirubin,direct 0.2 mg/dL 0.0-0.2 Bilirubin,direct AT [facility] ([facility]) albumin/globulin ratio 1.2-2.2 Albumin/globu dyana Ratio ESTHELA ([facility]) ID Date Data Source [id number] 08/09/2020 07:24:00 PM EDT EST[place] ([facility]) Name Value Range Interpretation Code Description Data Libia rce(s) Supporting Document(s) white blood count 7.6 10 4.0-10.0 White Blood Count ESTHELA ([facility]) red blood count 4.40 10 4.00-5.40 Red Blood Count ATHE ([facility]) hemoglobin 12.9 g/dL 12.0-15.5 Hemoglobin ESTHELA ([facility]) hematocrit 40.5 % 36.0-47.0 Hematocrit [place] ([facility]) mean corpuscular volume 92.0 fL 80.0-96.0 Mean Corpusc ular Volume ESTHELA ([facility]) mean corpuscular HGB conc 31.9 g/dL 32.0-36.5 Below low maira l Mean Corpuscular HGB Conc ESTHELA ([facility]) mean corpuscular hemoglobin 29.3 pg 27.0-33.0 Mean Cor puscular Hemoglobin EST[place] ([facility]) neutrophils % 71.5 % 36.0-66.0 Above high normal Neutrophils % A THENA ([facility]) red cell distribution width 14.4 % 11.5-14.5 Red Cell Distribution Width EST[place] ([facility]) platelet count, automated 262 10 150-450 Platelet C ount, Automated [place] ([facility]) mono % 4.8 % 2.0-8.0 [place] % ESTEHLA ([facility]) lymph % 20.9 % 24.0-44.0 Below low normal Lymph % ESTHELA ( [facility]) eos % 2.0 % 0.0-3.0 Eos % [place] ([facility]) baso % 0.4 % 0.0-1.0 Baso % TRAM ([facility]) immature granulocyte % 0.4 % 0-3.0 Immature Gran ulocyte % TRAM ([facility]) neutrophils # 5.4 10 1.5-8.5 Neutrophils # TRAM ( [facility]) nucleated red blood cell % 0.0 % 0-0 Nucleated Red Blood Cell % ESTHELA ([facility]) lymph # 1.6 10 1.5-5.0 Lymph # EST[place] ([facility]) mono # 0.4 10 0.0-0.8 [place] # ESTHELA ([facility]) eos # 0.2 10 0.0-0.5 Eos # EST[place] ([facility]) baso # 0.0 10 0.0-0.2 Baso # EST[place] ([facility]) ID Date Data Source [id number] 08/09/2020 07:24:00 PM EDT TRAM ([facility]) Name Value Range Interpretation Code Description Data Libia rce(s) Supporting Document(s) syphilis nonreactive nonreactive Syphilis EST[place] ([facility]) ID Date Data Source [id number] 08/09/2020 07:24:00 PM EDT TRAM ([facility]) Name Value Range Interpretation Code Description Data Libia rce(s) Supporting Document(s) AST/SGOT 7 U/L 7-37 AST/SGOT [place] ([facility]) ALT/SGPT 15 U/L 12-78 ALT/SGPT [place] ([facility]) alkaline phosphatase 56 U/L 45-117 Alkaline Phosph atase EST[place] ([facility]) bilirubin,total 0.6 mg/dL 0.2-1.0 Bilirubin,total ATHE NA ([facility]) bilirubin,direct 0.2 mg/dL 0.0-0.2 Bilirubin,direct AT [facility] ([facility]) total protein 6.8 gm/dL 6.4-8.2 Total Protein EST[place] ( [facility]) albumin 4.1 gm/dL 3.2-5.2 Albumin [place] ([facility]) albumin/globulin ratio 1.2-2.2 Albumin/globu dyana Ratio EST[place] ([facility]) ID Date Data Source [id number] 08/09/2020 07:24:00 PM EDT EST[place] ([facility]) Name Value Range Interpretation Code Description Data Libia rce(s) Supporting Document(s) white blood count 7.6 10 4.0-10.0 White Blood Count EST[place] ([facility]) hemoglobin 12.9 g/dL 12.0-15.5 Hemoglobin EST[place] ([facility]) hematocrit 40.5 % 36.0-47.0 Hematocrit [place] ([facility]) red blood count 4.40 10 4.00-5.40 Red Blood Count ATHE NA ([facility]) mean corpuscular volume 92.0 fL 80.0-96.0 Mean Corpusc ular Volume EST[place] ([facility]) mean corpuscular hemoglobin 29.3 pg 27.0-33.0 Mean Cor puscular Hemoglobin EST[place] ([facility]) red cell distribution width 14.4 % 11.5-14.5 Red Cell Distribution Width [place] ([facility]) mean corpuscular HGB conc 31.9 g/dL 32.0-36.5 Below low maira l Mean Corpuscular HGB Conc EST[place] ([facility]) lymph % 20.9 % 24.0-44.0 Below low normal Lymph % ESTHELA ( [facility]) neutrophils % 71.5 % 36.0-66.0 Above high normal Neutrophils % A THENA ([facility]) platelet count, automated 262 10 150-450 Platelet C ount, Automated [place] ([facility]) eos % 2.0 % 0.0-3.0 Eos % EST[place] ([facility]) mono % 4.8 % 2.0-8.0 [place] % [place] ([facility]) baso % 0.4 % 0.0-1.0 Baso % EST[place] ([facility]) immature granulocyte % 0.4 % 0-3.0 Immature Gran ulocyte % ESTHELA ([facility]) neutrophils # 5.4 10 1.5-8.5 Neutrophils # ESTHELA ( [facility]) lymph # 1.6 10 1.5-5.0 Lymph # TRAM ([facility]) nucleated red blood cell % 0.0 % 0-0 Nucleated Red Blood Cell % ESTHELA ([facility]) eos # 0.2 10 0.0-0.5 Eos # [place] ([facility]) mono # 0.4 10 0.0-0.8 [place] # ESTHE[place] ([facility]) baso # 0.0 10 0.0-0.2 Baso # EST[place] ([facility]) ID Date Data Source [id number] 08/09/2020 07:24:00 PM EDT [place] ([facility]) Name Value Range Interpretation Code Description Data Libia rce(s) Supporting Document(s) syphilis nonreactive nonreactive Syphilis EST[place] ([facility]) ID Date Data Source [id number] 08/09/2020 07:24:00 PM EDT TRAM ([facility]) Name Value Range Interpretation Code Description Data Libia rce(s) Supporting Document(s) AST/SGOT 7 U/L 7-37 AST/SGOT [place] ([facility]) alkaline phosphatase 56 U/L 45-117 Alkaline Phosph atase [place] ([facility]) ALT/SGPT 15 U/L 12-78 ALT/SGPT [place] ([facility]) bilirubin,direct 0.2 mg/dL 0.0-0.2 Bilirubin,direct AT [facility] ([facility]) bilirubin,total 0.6 mg/dL 0.2-1.0 Bilirubin,total ATHE NA ([facility]) albumin 4.1 gm/dL 3.2-5.2 Albumin [place] ([facility]) total protein 6.8 gm/dL 6.4-8.2 Total Protein EST[place] ( [facility]) albumin/globulin ratio 1.2-2.2 Albumin/globu dyana Ratio EST[place] ([facility]) ID Date Data Source [id number] 08/09/2020 07:24:00 PM EDT [place] ([facility]) Name Value Range Interpretation Code Description Data Libia rce(s) Supporting Document(s) white blood count 7.6 10 4.0-10.0 White Blood Count [place] ([facility]) hemoglobin 12.9 g/dL 12.0-15.5 Hemoglobin EST[place] ([facility]) red blood count 4.40 10 4.00-5.40 Red Blood Count ATHE ([facility]) hematocrit 40.5 % 36.0-47.0 Hematocrit EST[place] ([facility]) mean corpuscular volume 92.0 fL 80.0-96.0 Mean Corpusc ular Volume [place] ([facility]) mean corpuscular hemoglobin 29.3 pg 27.0-33.0 Mean Cor puscular Hemoglobin EST[place] ([facility]) red cell distribution width 14.4 % 11.5-14.5 Red Cell Distribution Width EST[place] ([facility]) mean corpuscular HGB conc 31.9 g/dL 32.0-36.5 Below low maira l Mean Corpuscular HGB Conc EST[place] ([facility]) neutrophils % 71.5 % 36.0-66.0 Above high normal Neutrophils % A THENA ([facility]) platelet count, automated 262 10 150-450 Platelet C ount, Automated [place] ([facility]) lymph % 20.9 % 24.0-44.0 Below low normal Lymph % ESTHELA ( [facility]) mono % 4.8 % 2.0-8.0 [place] % EST[place] ([facility]) eos % 2.0 % 0.0-3.0 Eos % TRAM ([facility]) immature granulocyte % 0.4 % 0-3.0 Immature Gran ulocyte % TRAM ([facility]) baso % 0.4 % 0.0-1.0 Baso % TRAM ([facility]) nucleated red blood cell % 0.0 % 0-0 Nucleated Red Blood Cell % TRAM ([facility]) neutrophils # 5.4 10 1.5-8.5 Neutrophils # TRAM ( [facility]) mono # 0.4 10 0.0-0.8 [place] # ESTHELA ([facility]) lymph # 1.6 10 1.5-5.0 Lymph # TRAM ([facility]) eos # 0.2 10 0.0-0.5 Eos # TRAM ([facility]) baso # 0.0 10 0.0-0.2 Baso # TRAM ([facility]) ID Date Data Source [id number] 08/09/2020 07:24:00 PM EDT TRAM ([facility]) Name Value Range Interpretation Code Description Data Libia rce(s) Supporting Document(s) syphilis nonreactive nonreactive Syphilis EST[place]LA ([facility]) ID Date Data Source [id number] 08/09/2020 07:24:00 PM EDT TRAM ([facility]) Name Value Range Interpretation Code Description Data Libia rce(s) Supporting Document(s) AST/SGOT 7 U/L 7-37 AST/SGOT TRAM ([facility]) alkaline phosphatase 56 U/L 45-117 Alkaline Phosph atase EST[place] ([facility]) ALT/SGPT 15 U/L 12-78 ALT/SGPT [place] ([facility]) bilirubin,direct 0.2 mg/dL 0.0-0.2 Bilirubin,direct AT [facility] ([facility]) bilirubin,total 0.6 mg/dL 0.2-1.0 Bilirubin,total ATHE NA ([facility]) total protein 6.8 gm/dL 6.4-8.2 Total Protein EST[place] ( [facility]) albumin 4.1 gm/dL 3.2-5.2 Albumin [place] ([facility]) albumin/globulin ratio 1.2-2.2 Albumin/globu dyana Ratio ESTHELA ([facility]) ID Date Data Source [id number] 08/09/2020 07:24:00 PM EDT ESTHE[place] ([facility]) Name Value Range Interpretation Code Description Data Libia rce(s) Supporting Document(s) red blood count 4.40 10 4.00-5.40 Red Blood Count ATHE ([facility]) white blood count 7.6 10 4.0-10.0 White Blood Count EST[place] ([facility]) hemoglobin 12.9 g/dL 12.0-15.5 Hemoglobin ESTHE[place] ([facility]) hematocrit 40.5 % 36.0-47.0 Hematocrit EST[place] ([facility]) mean corpuscular volume 92.0 fL 80.0-96.0 Mean Corpusc ular Volume ESTHELA ([facility]) mean corpuscular hemoglobin 29.3 pg 27.0-33.0 Mean Cor puscular Hemoglobin EST[place] ([facility]) mean corpuscular HGB conc 31.9 g/dL 32.0-36.5 Below low maira l Mean Corpuscular HGB Conc EST[place] ([facility]) red cell distribution width 14.4 % 11.5-14.5 Red Cell Distribution Width EST[place] ([facility]) platelet count, automated 262 10 150-450 Platelet C ount, Automated EST[place] ([facility]) lymph % 20.9 % 24.0-44.0 Below low normal Lymph % ESTHELA ( [facility]) neutrophils % 71.5 % 36.0-66.0 Above high normal Neutrophils % A THENA ([facility]) eos % 2.0 % 0.0-3.0 Eos % EST[place] ([facility]) mono % 4.8 % 2.0-8.0 [place] % ESTHE[place] ([facility]) immature granulocyte % 0.4 % 0-3.0 Immature Gran ulocyte % ESTHELA ([facility]) baso % 0.4 % 0.0-1.0 Baso % TRAM ([facility]) neutrophils # 5.4 10 1.5-8.5 Neutrophils # TRAM ( [facility]) nucleated red blood cell % 0.0 % 0-0 Nucleated Red Blood Cell % ESTHELA ([facility]) lymph # 1.6 10 1.5-5.0 Lymph # [place] ([facility]) eos # 0.2 10 0.0-0.5 Eos # EST[place] ([facility]) mono # 0.4 10 0.0-0.8 [place] # ESTHELA ([facility]) baso # 0.0 10 0.0-0.2 Baso # EST[place]LA ([facility]) ID Date Data Source [id number] 08/09/2020 07:24:00 PM EDT TRAM ([facility]) Name Value Range Interpretation Code Description Data Libia rce(s) Supporting Document(s) syphilis nonreactive nonreactive Syphilis EST[place] ([facility]) ID Date Data Source [id number] 08/09/2020 07:24:00 PM EDT TRAM ([facility]) Name Value Range Interpretation Code Description Data Libia rce(s) Supporting Document(s) AST/SGOT 7 U/L 7-37 AST/SGOT EST[place] ([facility]) alkaline phosphatase 56 U/L 45-117 Alkaline Phosph atase EST[place] ([facility]) ALT/SGPT 15 U/L 12-78 ALT/SGPT [place] ([facility]) bilirubin,total 0.6 mg/dL 0.2-1.0 Bilirubin,total ATHE NA ([facility]) bilirubin,direct 0.2 mg/dL 0.0-0.2 Bilirubin,direct AT [facility] ([facility]) total protein 6.8 gm/dL 6.4-8.2 Total Protein EST[place] ( [facility]) albumin 4.1 gm/dL 3.2-5.2 Albumin EST[place] ([facility]) albumin/globulin ratio 1.2-2.2 Albumin/globu dyana Ratio ESTHELA ([facility]) ID Date Data Source [id number] 08/09/2020 07:24:00 PM EDT TRAM ([facility]) Name Value Range Interpretation Code Description Data Libia rce(s) Supporting Document(s) red blood count 4.40 10 4.00-5.40 Red Blood Count ATHE ([facility]) white blood count 7.6 10 4.0-10.0 White Blood Count [place] ([facility]) hemoglobin 12.9 g/dL 12.0-15.5 Hemoglobin EST[place] ([facility]) mean corpuscular volume 92.0 fL 80.0-96.0 Mean Corpusc ular Volume ESTHELA ([facility]) hematocrit 40.5 % 36.0-47.0 Hematocrit EST[place] ([facility]) mean corpuscular HGB conc 31.9 g/dL 32.0-36.5 Below low maira l Mean Corpuscular HGB Conc EST[place] ([facility]) mean corpuscular hemoglobin 29.3 pg 27.0-33.0 Mean Cor puscular Hemoglobin EST[place] ([facility]) red cell distribution width 14.4 % 11.5-14.5 Red Cell Distribution Width EST[place] ([facility]) platelet count, automated 262 10 150-450 Platelet C ount, Automated EST[place] ([facility]) neutrophils % 71.5 % 36.0-66.0 Above high normal Neutrophils % A THENA ([facility]) lymph % 20.9 % 24.0-44.0 Below low normal Lymph % ESTHELA ( [facility]) eos % 2.0 % 0.0-3.0 Eos % EST[place] ([facility]) mono % 4.8 % 2.0-8.0 [place] % ESTHELA ([facility]) baso % 0.4 % 0.0-1.0 Baso % TRAM ([facility]) immature granulocyte % 0.4 % 0-3.0 Immature Gran ulocyte % ESTHELA ([facility]) nucleated red blood cell % 0.0 % 0-0 Nucleated Red Blood Cell % ESTHELA ([facility]) lymph # 1.6 10 1.5-5.0 Lymph # TRAM ([facility]) neutrophils # 5.4 10 1.5-8.5 Neutrophils # ESTHELA ( [facility]) baso # 0.0 10 0.0-0.2 Baso # EST[place]LA ([facility]) mono # 0.4 10 0.0-0.8 [place] # ESTHELA ([facility]) eos # 0.2 10 0.0-0.5 Eos # EST[place]LA ([facility]) ID Date Data Source [id number] 08/09/2020 07:24:00 PM EDT TRAM ([facility]) Name Value Range Interpretation Code Description Data Libia rce(s) Supporting Document(s) syphilis nonreactive nonreactive Syphilis EST[place]LA ([facility]) ID Date Data Source [id number] 08/09/2020 07:24:00 PM EDT TRAM ([facility]) Name Value Range Interpretation Code Description Data Libia rce(s) Supporting Document(s) AST/SGOT 7 U/L 7-37 AST/SGOT EST[place] ([facility]) alkaline phosphatase 56 U/L 45-117 Alkaline Phosph atase EST[place] ([facility]) ALT/SGPT 15 U/L 12-78 ALT/SGPT [place] ([facility]) bilirubin,total 0.6 mg/dL 0.2-1.0 Bilirubin,total ATHE NA ([facility]) bilirubin,direct 0.2 mg/dL 0.0-0.2 Bilirubin,direct AT [facility] ([facility]) albumin/globulin ratio 1.2-2.2 Albumin/globu dyana Ratio EST[place]LA ([facility]) total protein 6.8 gm/dL 6.4-8.2 Total Protein ESTHELA ( [facility]) albumin 4.1 gm/dL 3.2-5.2 Albumin EST[place] ([facility]) ID Date Data Source [id number] 08/09/2020 07:24:00 PM EDT TRAM ([facility]) Name Value Range Interpretation Code Description Data Libia rce(s) Supporting Document(s) white blood count 7.6 10 4.0-10.0 White Blood Count EST[place] ([facility]) red blood count 4.40 10 4.00-5.40 Red Blood Count ATHE ([facility]) hemoglobin 12.9 g/dL 12.0-15.5 Hemoglobin ESTHELA ([facility]) mean corpuscular volume 92.0 fL 80.0-96.0 Mean Corpusc ular Volume ESTHELA ([facility]) hematocrit 40.5 % 36.0-47.0 Hematocrit EST[place] ([facility]) mean corpuscular hemoglobin 29.3 pg 27.0-33.0 Mean Cor puscular Hemoglobin ESTHELA ([facility]) mean corpuscular HGB conc 31.9 g/dL 32.0-36.5 Below low maira l Mean Corpuscular HGB Conc EST[place] ([facility]) platelet count, automated 262 10 150-450 Platelet C ount, Automated EST[place] ([facility]) neutrophils % 71.5 % 36.0-66.0 Above high normal Neutrophils % A THENA ([facility]) red cell distribution width 14.4 % 11.5-14.5 Red Cell Distribution Width EST[place] ([facility]) mono % 4.8 % 2.0-8.0 [place] % ESTHELA ([facility]) lymph % 20.9 % 24.0-44.0 Below low normal Lymph % ESTHELA ( [facility]) eos % 2.0 % 0.0-3.0 Eos % EST[place]LA ([facility]) baso % 0.4 % 0.0-1.0 Baso % TRAM ([facility]) nucleated red blood cell % 0.0 % 0-0 Nucleated Red Blood Cell % TRAM ([facility]) immature granulocyte % 0.4 % 0-3.0 Immature Gran ulocyte % TRAM ([facility]) neutrophils # 5.4 10 1.5-8.5 Neutrophils # TRAM ( [facility]) lymph # 1.6 10 1.5-5.0 Lymph # EST[place]LA ([facility]) mono # 0.4 10 0.0-0.8 [place] # ESTHELA ([facility]) eos # 0.2 10 0.0-0.5 Eos # EST[place]LA ([facility]) baso # 0.0 10 0.0-0.2 Baso # ESTHELA ([facility]) ID Date Data Source [id number] 08/09/2020 06:49:00 PM EDT TRAM ([facility]) Name Value Range Interpretation Code Description Data Libia rce(s) Supporting Document(s) chlamydia DNA amplification negative negative Chlamydi a DNA Amplification TRAM ([facility]) GC DNA amplification negative negative GC DNA Amplific ation EST[place]LA ([facility]) trichomonas vaginalis (amp) not detected negative Tricho monas Vaginalis (Amp) TRAM ([facility]) ID Date Data Source [id number] 08/09/2020 06:49:00 PM EDT TRAM ([facility]) Name Value Range Interpretation Code Description Data Libia rce(s) Supporting Document(s) appearance, urine rfx clear clear Appearance, Ur ine Rfx TRAM ([facility]) color, urine rfx yellow yellow Color, Urine Rfx AT [facility] ([facility]) pH,urine rfx 6.0 units 5.0-9.0 pH,urine Rfx EST[place] (No [facility]) specific gravity ur auto rfx 1.002-1.035 Specif ic [place] Ur Auto Rfx EST[place]LA ([facility]) protein, urine auto rfx negative negative Protein, Uri ne Auto Rfx TRAM ([facility]) glucose, urine (UA) auto rfx negative negative Glucose , Urine (UA) Auto Rfx TRAM ([facility]) ketone, urine auto rfx negative negative Ketone, Urine Auto Rfx TRAM ([facility]) urobilinogen, urine auto rfx 0.2 mg/dL 0.0-2.0 Urobili nogen, Urine Auto Rfx [place] ([facility]) bilirubin, urine auto rfx negative negative Bilirubin, Urine Auto Rfx TRAM ([facility]) nitrite, urine auto rfx negative negative Nitrite, Uri ne Auto Rfx TRAM ([facility]) leukocyte esterase ur auto rfx negative negative Leukocyte Esterase Ur Auto Rfx TRAM ([facility]) blood, urine blood rfx 3+ negative Above high normal Blood, Urine Blood Rfx TRAM ([facility]) WBC, urine auto rfx 2 /hpf 0-3 WBC, Urine Auto Rfx [place] ([facility]) RBC, urine auto rfx 1 /hpf 0-3 RBC, Urine Auto Rfx [place] ([facility]) bacteria, urine auto rfx negative negative Bacteria, U rine Auto Rfx TRAM ([facility]) squam epithelial cell ur aurfx 4 /hpf 0-6 Squam Epithelial Cell Ur Aurfx TRAM ([facility]) mucus, urine rfx small negative Mucus, Urine Rfx AT [facility] ([facility]) hyaline cast, urine auto rfx 0 /lpf 0-1 Hyaline Cast, Urine Auto Rfx TRAM ([facility]) ID Date Data Source [id number] 08/09/2020 06:49:00 PM EDT [facility]) Name Value Range Interpretation Code Description Data Libia rce(s) Supporting Document(s) chlamydia DNA amplification negative negative Chlamydi a DNA Amplification [place] ([facility]) GC DNA amplification negative negative GC DNA Amplific ation [place] ([facility]) trichomonas vaginalis (amp) not detected negative Tricho monas Vaginalis (Amp) TRAM ([facility]) ID Date Data Source [id number] 08/09/2020 06:49:00 PM EDT [facility]) Name Value Range Interpretation Code Description Data Libia rce(s) Supporting Document(s) appearance, urine rfx clear clear Appearance, Ur ine Rfx TRAM ([facility]) pH,urine rfx 6.0 units 5.0-9.0 pH,urine Rfx TRAM (No [facility]) color, urine rfx yellow yellow Color, Urine Rfx AT [facility] ([facility]) protein, urine auto rfx negative negative Protein, Uri ne Auto Rfx TRAM ([facility]) specific gravity ur auto rfx 1.002-1.035 Specif ic [place] Ur Auto Rfx [facility] [facility]) ketone, urine auto rfx negative negative Ketone, Urine Auto Rfx TRAM ([facility]) glucose, urine (UA) auto rfx negative negative Glucose , Urine (UA) Auto Rfx TRAM ([facility]) bilirubin, urine auto rfx negative negative Bilirubin, Urine Auto Rfx [facility]) nitrite, urine auto rfx negative negative Nitrite, Uri ne Auto Rfx [facility]) urobilinogen, urine auto rfx 0.2 mg/dL 0.0-2.0 Urobili nogen, Urine Auto Rfx [facility]) blood, urine blood rfx 3+ negative Above high normal Blood, Urine Blood Rfx TRAM ([facility]) leukocyte esterase ur auto rfx negative negative Leukocyte Esterase Ur Auto Rfx [place] ([facility]) WBC, urine auto rfx 2 /hpf 0-3 WBC, Urine Auto Rfx [place] ([facility]) RBC, urine auto rfx 1 /hpf 0-3 RBC, Urine Auto Rfx TRAM ([facility]) squam epithelial cell ur aurfx 4 /hpf 0-6 Squam Epithelial Cell Ur Aurfx TRAM ([facility]) bacteria, urine auto rfx negative negative Bacteria, U rine Auto Rfx TRAM ([facility]) hyaline cast, urine auto rfx 0 /lpf 0-1 Hyaline Cast, Urine Auto Rfx TRAM ([facility]) mucus, urine rfx small negative Mucus, Urine Rfx AT [facility]) ID Date Data Source [id number] 08/09/2020 06:49:00 PM EDT [facility]) Name Value Range Interpretation Code Description Data Libia rce(s) Supporting Document(s) chlamydia DNA amplification negative negative Chlamydi a DNA Amplification TRAM ([facility]) GC DNA amplification negative negative GC DNA Amplific ation TRAM ([facility]) trichomonas vaginalis (amp) not detected negative Tricho monas Vaginalis (Amp) [facility]) ID Date Data Source [id number] 08/09/2020 06:49:00 PM EDT [facility]) Name Value Range Interpretation Code Description Data Libia rce(s) Supporting Document(s) appearance, urine rfx clear clear Appearance, Ur ine Rfx TRAM ([facility]) color, urine rfx yellow yellow Color, Urine Rfx AT [facility] ([facility]) pH,urine rfx 6.0 units 5.0-9.0 pH,urine Rfx ESHTELA ([facility]) specific gravity ur auto rfx 1.002-1.035 Specif ic [place] Ur Auto Rfx TRAM ([facility]) protein, urine auto rfx negative negative Protein, Uri ne Auto Rfx TRAM ([facility]) glucose, urine (UA) auto rfx negative negative Glucose , Urine (UA) Auto Rfx TRAM ([facility]) ketone, urine auto rfx negative negative Ketone, Urine Auto Rfx TRAM ([facility]) urobilinogen, urine auto rfx 0.2 mg/dL 0.0-2.0 Urobili nogen, Urine Auto Rfx TRAM ([facility]) bilirubin, urine auto rfx negative negative Bilirubin, Urine Auto Rfx [place] ([facility]) nitrite, urine auto rfx negative negative Nitrite, Uri ne Auto Rfx TRAM ([facility]) leukocyte esterase ur auto rfx negative negative Leukocyte Esterase Ur Auto Rfx TRAM ([facility]) blood, urine blood rfx 3+ negative Above high normal Blood, Urine Blood Rfx TRAM ([facility]) RBC, urine auto rfx 1 /hpf 0-3 RBC, Urine Auto Rfx TRAM ([facility]) WBC, urine auto rfx 2 /hpf 0-3 WBC, Urine Auto Rfx TRAM ([facility]) bacteria, urine auto rfx negative negative Bacteria, U rine Auto Rfx TRAM ([facility]) squam epithelial cell ur aurfx 4 /hpf 0-6 Squam Epithelial Cell Ur Aurfx TRAM ([facility]) hyaline cast, urine auto rfx 0 /lpf 0-1 Hyaline Cast, Urine Auto Rfx TRAM ([facility]) mucus, urine rfx small negative Mucus, Urine Rfx AT [facility] ([facility]) ID Date Data Source [id number] 08/09/2020 06:49:00 PM EDT TRAM ([facility]) Name Value Range Interpretation Code Description Data Libia rce(s) Supporting Document(s) trichomonas vaginalis (amp) not detected negative Tricho monas Vaginalis (Amp) TRAM ([facility]) chlamydia DNA amplification negative negative Chlamydi a DNA Amplification TRAM ([facility]) GC DNA amplification negative negative GC DNA Amplific ation ESTHELA ([facility]) ID Date Data Source [id number] 08/09/2020 06:49:00 PM EDT TRAM ([facility]) Name Value Range Interpretation Code Description Data Libia rce(s) Supporting Document(s) appearance, urine rfx clear clear Appearance, Ur ine Rfx TRAM ([facility]) color, urine rfx yellow yellow Color, Urine Rfx AT [facility] ([facility]) specific gravity ur auto rfx 1.002-1.035 Specif ic [place] Ur Auto Rfx TRAM ([facility]) pH,urine rfx 6.0 units 5.0-9.0 pH,urine Rfx TRAM ([facility]) glucose, urine (UA) auto rfx negative negative Glucose , Urine (UA) Auto Rfx TRAM ([facility]) protein, urine auto rfx negative negative Protein, Uri ne Auto Rfx TRAM ([facility]) ketone, urine auto rfx negative negative Ketone, Urine Auto Rfx TRAM ([facility]) urobilinogen, urine auto rfx 0.2 mg/dL 0.0-2.0 Urobili nogen, Urine Auto Rfx TRAM ([facility]) nitrite, urine auto rfx negative negative Nitrite, Uri ne Auto Rfx TRAM ([facility]) bilirubin, urine auto rfx negative negative Bilirubin, Urine Auto Rfx TRAM ([facility]) leukocyte esterase ur auto rfx negative negative Leukocyte Esterase Ur Auto Rfx [place] ([facility]) blood, urine blood rfx 3+ negative Above high normal Blood, Urine Blood Rfx TRAM ([facility]) WBC, urine auto rfx 2 /hpf 0-3 WBC, Urine Auto Rfx [place] ([facility]) bacteria, urine auto rfx negative negative Bacteria, U rine Auto Rfx TRAM ([facility]) RBC, urine auto rfx 1 /hpf 0-3 RBC, Urine Auto Rfx TRAM ([facility]) squam epithelial cell ur aurfx 4 /hpf 0-6 Squam Epithelial Cell Ur Aurfx [place] ([facility]) mucus, urine rfx small negative Mucus, Urine Rfx AT [facility] ([facility]) hyaline cast, urine auto rfx 0 /lpf 0-1 Hyaline Cast, Urine Auto Rfx TRAM ([facility]) ID Date Data Source [id number] 08/09/2020 06:49:00 PM EDT [facility]) Name Value Range Interpretation Code Description Data Libia rce(s) Supporting Document(s) GC DNA amplification negative negative GC DNA Amplific ation TRAM ([facility]) chlamydia DNA amplification negative negative Chlamydi a DNA Amplification TRAM ([facility]) trichomonas vaginalis (amp) not detected negative Tricho monas Vaginalis (Amp) [facility]) ID Date Data Source [id number] 08/09/2020 06:49:00 PM EDT TRAM ([facility]) Name Value Range Interpretation Code Description Data Libia rce(s) Supporting Document(s) appearance, urine rfx clear clear Appearance, Ur ine Rfx TRAM ([facility]) color, urine rfx yellow yellow Color, Urine Rfx AT [facility] ([facility]) pH,urine rfx 6.0 units 5.0-9.0 pH,urine Rfx TRAM (No [facility]) specific gravity ur auto rfx 1.002-1.035 Specif ic [place] Ur Auto Rfx TRAM ([facility]) ketone, urine auto rfx negative negative Ketone, Urine Auto Rfx TRAM ([facility]) protein, urine auto rfx negative negative Protein, Uri ne Auto Rfx TRAM ([facility]) glucose, urine (UA) auto rfx negative negative Glucose , Urine (UA) Auto Rfx TRAM ([facility]) urobilinogen, urine auto rfx 0.2 mg/dL 0.0-2.0 Urobili nogen, Urine Auto Rfx [facility]) bilirubin, urine auto rfx negative negative Bilirubin, Urine Auto Rfx TRAM ([facility]) leukocyte esterase ur auto rfx negative negative Leukocyte Esterase Ur Auto Rfx TRAM ([facility]) nitrite, urine auto rfx negative negative Nitrite, Uri ne Auto Rfx TRAM ([facility]) blood, urine blood rfx 3+ negative Above high normal Blood, Urine Blood Rfx TRAM ([facility]) WBC, urine auto rfx 2 /hpf 0-3 WBC, Urine Auto Rfx TRAM ([facility]) bacteria, urine auto rfx negative negative Bacteria, U rine Auto Rfx TRAM ([facility]) RBC, urine auto rfx 1 /hpf 0-3 RBC, Urine Auto Rfx TRAM ([facility]) mucus, urine rfx small negative Mucus, Urine Rfx AT [facility] ([facility]) squam epithelial cell ur aurfx 4 /hpf 0-6 Squam Epithelial Cell Ur Aurfx TRAM ([facility]) hyaline cast, urine auto rfx 0 /lpf 0-1 Hyaline Cast, Urine Auto Rfx TRAM ([facility]) ID Date Data Source [id number] 08/09/2020 06:49:00 PM EDT TRAM ([facility]) Name Value Range Interpretation Code Description Data Libia rce(s) Supporting Document(s) GC DNA amplification negative negative GC DNA Amplific ation EST[place] ([facility]) chlamydia DNA amplification negative negative Chlamydi a DNA Amplification TRAM ([facility]) trichomonas vaginalis (amp) not detected negative Tricho monas Vaginalis (Amp) TRAM ([facility]) ID Date Data Source [id number] 08/09/2020 06:49:00 PM EDT TRAM ([facility]) Name Value Range Interpretation Code Description Data Libia rce(s) Supporting Document(s) appearance, urine rfx clear clear Appearance, Ur ine Rfx TRAM ([facility]) pH,urine rfx 6.0 units 5.0-9.0 pH,urine Rfx TRAM ([facility]) color, urine rfx yellow yellow Color, Urine Rfx AT [facility] ([facility]) protein, urine auto rfx negative negative Protein, Uri ne Auto Rfx TRAM ([facility]) specific gravity ur auto rfx 1.002-1.035 Specif ic [place] Ur Auto Rfx TRAM ([facility]) glucose, urine (UA) auto rfx negative negative Glucose , Urine (UA) Auto Rfx TRAM ([facility]) ketone, urine auto rfx negative negative Ketone, Urine Auto Rfx TRAM ([facility]) bilirubin, urine auto rfx negative negative Bilirubin, Urine Auto Rfx TRAM ([facility]) urobilinogen, urine auto rfx 0.2 mg/dL 0.0-2.0 Urobili nogen, Urine Auto Rfx TRAM ([facility]) nitrite, urine auto rfx negative negative Nitrite, Uri ne Auto Rfx TRAM ([facility]) leukocyte esterase ur auto rfx negative negative Leukocyte Esterase Ur Auto Rfx TRAM ([facility]) WBC, urine auto rfx 2 /hpf 0-3 WBC, Urine Auto Rfx TRAM ([facility]) blood, urine blood rfx 3+ negative Above high normal Blood, Urine Blood Rfx TRAM ([facility]) bacteria, urine auto rfx negative negative Bacteria, U rine Auto Rfx TRAM ([facility]) RBC, urine auto rfx 1 /hpf 0-3 RBC, Urine Auto Rfx TRAM ([facility]) squam epithelial cell ur aurfx 4 /hpf 0-6 Squam Epithelial Cell Ur Aurfx TRAM ([facility]) mucus, urine rfx small negative Mucus, Urine Rfx AT [facility] ([facility]) hyaline cast, urine auto rfx 0 /lpf 0-1 Hyaline Cast, Urine Auto Rfx TRAM ([facility]) ID Date Data Source [id number] 08/09/2020 06:49:00 PM EDT TRAM ([facility]) Name Value Range Interpretation Code Description Data Libia rce(s) Supporting Document(s) GC DNA amplification negative negative GC DNA Amplific ation TRAM ([facility]) chlamydia DNA amplification negative negative Chlamydi a DNA Amplification TRAM ([facility]) trichomonas vaginalis (amp) not detected negative Tricho monas Vaginalis (Amp) TRAM ([facility]) ID Date Data Source [id number] 08/09/2020 06:49:00 PM EDT TRAM ([facility]) Name Value Range Interpretation Code Description Data Libia rce(s) Supporting Document(s) appearance, urine rfx clear clear Appearance, Ur ine Rfx TRAM ([facility]) color, urine rfx yellow yellow Color, Urine Rfx AT [facility] ([facility]) specific gravity ur auto rfx 1.002-1.035 Specif ic [place] Ur Auto Rfx TRAM ([facility]) pH,urine rfx 6.0 units 5.0-9.0 pH,urine Rfx [facility] glucose, urine (UA) auto rfx negative negative Glucose , Urine (UA) Auto Rfx TRAM ([facility]) protein, urine auto rfx negative negative Protein, Uri ne Auto Rfx TRAM ([facility]) ketone, urine auto rfx negative negative Ketone, Urine Auto Rfx TRAM ([facility]) urobilinogen, urine auto rfx 0.2 mg/dL 0.0-2.0 Urobili nogen, Urine Auto Rfx TRAM ([facility]) bilirubin, urine auto rfx negative negative Bilirubin, Urine Auto Rfx TRAM ([facility]) leukocyte esterase ur auto rfx negative negative Leukocyte Esterase Ur Auto Rfx TRAM ([facility]) nitrite, urine auto rfx negative negative Nitrite, Uri ne Auto Rfx TRAM ([facility]) blood, urine blood rfx 3+ negative Above high normal Blood, Urine Blood Rfx [facility]) WBC, urine auto rfx 2 /hpf 0-3 WBC, Urine Auto Rfx [facility]) RBC, urine auto rfx 1 /hpf 0-3 RBC, Urine Auto Rfx TRAM ([facility]) bacteria, urine auto rfx negative negative Bacteria, U rine Auto Rfx TRAM ([facility]) squam epithelial cell ur aurfx 4 /hpf 0-6 Squam Epithelial Cell Ur Aurfx TRAM ([facility]) mucus, urine rfx small negative Mucus, Urine Rfx AT [facility] ([facility]) hyaline cast, urine auto rfx 0 /lpf 0-1 Hyaline Cast, Urine Auto Rfx TRAM ([facility]) ID Date Data Source [id number] 08/09/2020 06:49:00 PM EDT [facility]) Name Value Range Interpretation Code Description Data Libia rce(s) Supporting Document(s) chlamydia DNA amplification negative negative Chlamydi a DNA Amplification TRAM ([facility]) trichomonas vaginalis (amp) not detected negative Tricho monas Vaginalis (Amp) TRAM ([facility]) GC DNA amplification negative negative GC DNA Amplific ation [facility]) ID Date Data Source [id number] 08/09/2020 06:49:00 PM EDT TRAM ([facility]) Name Value Range Interpretation Code Description Data Libia rce(s) Supporting Document(s) appearance, urine rfx clear clear Appearance, Ur ine Rfx TRAM ([facility]) color, urine rfx yellow yellow Color, Urine Rfx AT [facility] ([facility]) specific gravity ur auto rfx 1.002-1.035 Specif ic [place] Ur Auto Rfx TRAM ([facility]) pH,urine rfx 6.0 units 5.0-9.0 pH,urine Rfx TRAM ([facility]) protein, urine auto rfx negative negative Protein, Uri ne Auto Rfx TRAM ([facility]) ketone, urine auto rfx negative negative Ketone, Urine Auto Rfx TRAM ([facility]) glucose, urine (UA) auto rfx negative negative Glucose , Urine (UA) Auto Rfx TRAM ([facility]) urobilinogen, urine auto rfx 0.2 mg/dL 0.0-2.0 Urobili nogen, Urine Auto Rfx TRAM ([facility]) bilirubin, urine auto rfx negative negative Bilirubin, Urine Auto Rfx TRAM ([facility]) nitrite, urine auto rfx negative negative Nitrite, Uri ne Auto Rfx TRAM ([facility]) leukocyte esterase ur auto rfx negative negative Leukocyte Esterase Ur Auto Rfx TRAM ([facility]) blood, urine blood rfx 3+ negative Above high normal Blood, Urine Blood Rfx [place] ([facility]) WBC, urine auto rfx 2 /hpf 0-3 WBC, Urine Auto Rfx TRAM ([facility]) RBC, urine auto rfx 1 /hpf 0-3 RBC, Urine Auto Rfx TRAM ([facility]) bacteria, urine auto rfx negative negative Bacteria, U rine Auto Rfx TRAM ([facility]) squam epithelial cell ur aurfx 4 /hpf 0-6 Squam Epithelial Cell Ur Aurfx TRAM ([facility]) mucus, urine rfx small negative Mucus, Urine Rfx AT [facility]) hyaline cast, urine auto rfx 0 /lpf 0-1 Hyaline Cast, Urine Auto Rfx TRAM ([facility]) ID Date Data Source [id number] 08/09/2020 06:49:00 PM EDT TRAM ([facility]) Name Value Range Interpretation Code Description Data Libia rce(s) Supporting Document(s) trichomonas vaginalis (amp) not detected negative Tricho monas Vaginalis (Amp) TRAM ([facility]) chlamydia DNA amplification negative negative Chlamydi a DNA Amplification TRAM ([facility]) GC DNA amplification negative negative GC DNA Amplific ation [facility]) ID Date Data Source [id number] 08/09/2020 06:49:00 PM EDT TRAM ([facility]) Name Value Range Interpretation Code Description Data Libia rce(s) Supporting Document(s) appearance, urine rfx clear clear Appearance, Ur ine Rfx [place] ([facility]) pH,urine rfx 6.0 units 5.0-9.0 pH,urine Rfx EST[place]LA ([facility]) color, urine rfx yellow yellow Color, Urine Rfx AT [facility] ([facility]) specific gravity ur auto rfx 1.002-1.035 Specif ic [place] Ur Auto Rfx TRAM ([facility]) protein, urine auto rfx negative negative Protein, Uri ne Auto Rfx TRAM ([facility]) ketone, urine auto rfx negative negative Ketone, Urine Auto Rfx TRAM ([facility]) glucose, urine (UA) auto rfx negative negative Glucose , Urine (UA) Auto Rfx TRAM ([facility]) bilirubin, urine auto rfx negative negative Bilirubin, Urine Auto Rfx TRAM ([facility]) urobilinogen, urine auto rfx 0.2 mg/dL 0.0-2.0 Urobili nogen, Urine Auto Rfx TRAM ([facility]) nitrite, urine auto rfx negative negative Nitrite, Uri ne Auto Rfx TRAM ([facility]) leukocyte esterase ur auto rfx negative negative Leukocyte Esterase Ur Auto Rfx TRAM ([facility]) blood, urine blood rfx 3+ negative Above high normal Blood, Urine Blood Rfx TRAM ([facility]) WBC, urine auto rfx 2 /hpf 0-3 WBC, Urine Auto Rfx TRAM ([facility]) bacteria, urine auto rfx negative negative Bacteria, U rine Auto Rfx TRAM ([facility]) RBC, urine auto rfx 1 /hpf 0-3 RBC, Urine Auto Rfx TRAM ([facility]) squam epithelial cell ur aurfx 4 /hpf 0-6 Squam Epithelial Cell Ur Aurfx [place] ([facility]) mucus, urine rfx small negative Mucus, Urine Rfx AT [facility] ([facility]) hyaline cast, urine auto rfx 0 /lpf 0-1 Hyaline Cast, Urine Auto Rfx TRAM ([facility]) ID Date Data Source [id number] 07/16/2020 01:50:00 PM EDT TRAM ([facility]) Name Value Range Interpretation Code Description Data Libia rce(s) Supporting Document(s) appearance, urine rfx hazy clear Appearance, Ur ine Rfx TRAM ([facility]) color, urine rfx yellow yellow Color, Urine Rfx AT [facility] ([facility]) pH,urine rfx 5.0 units 5.0-9.0 pH,urine Rfx ESTHELA (No [facility]) specific gravity ur auto rfx 1.002-1.035 Specif ic [place] Ur Auto Rfx TRAM ([facility]) glucose, urine (UA) auto rfx negative negative Glucose , Urine (UA) Auto Rfx TRAM ([facility]) protein, urine auto rfx 1+ negative Above high normal Prote in, Urine Auto Rfx TRAM ([facility]) ketone, urine auto rfx 2+ negative Above high normal Ketone , Urine Auto Rfx TRAM ([facility]) bilirubin, urine auto rfx negative negative Bilirubin, Urine Auto Rfx TRAM ([facility]) urobilinogen, urine auto rfx 2.0 mg/dL 0.0-2.0 Above high n ormal Urobilinogen, Urine Auto Rfx TRAM ([facility]) nitrite, urine auto rfx negative negative Nitrite, Uri ne Auto Rfx TRAM ([facility]) leukocyte esterase ur auto rfx negative negative Leukocyte Esterase Ur Auto Rfx TRAM ([facility]) WBC, urine auto rfx 1 /hpf 0-3 WBC, Urine Auto Rfx TRAM ([facility]) blood, urine blood rfx negative negative Blood, Urine Blood Rfx TRAM ([facility]) RBC, urine auto rfx 1 /hpf 0-3 RBC, Urine Auto Rfx TRAM ([facility]) bacteria, urine auto rfx negative negative Bacteria, U rine Auto Rfx TRAM ([facility]) squam epithelial cell ur aurfx 9 /hpf 0-6 Squam Epithelial Cell Ur Aurfx TRAM ([facility]) mucus, urine rfx small negative Mucus, Urine Rfx AT [facility] ([facility]) hyaline cast, urine auto rfx 0 /lpf 0-1 Hyaline Cast, Urine Auto Rfx TRAM ([facility]) ID Date Data Source [id number] 07/16/2020 01:50:00 PM EDT TRAM ([facility]) Name Value Range Interpretation Code Description Data Libia rce(s) Supporting Document(s) istat B-HCG < 5.0 Istat B-HCG TRAM ([facility]) ID Date Data Source [id number] 07/16/2020 01:50:00 PM EDT TRAM ([facility]) Name Value Range Interpretation Code Description Data Libia rce(s) Supporting Document(s) pH,urine rfx 5.0 units 5.0-9.0 pH,urine Rfx TRAM ([facility]) color, urine rfx yellow yellow Color, Urine Rfx AT [facility] ([facility]) appearance, urine rfx hazy clear Appearance, Ur ine Rfx TRAM ([facility]) protein, urine auto rfx 1+ negative Above high normal Prote in, Urine Auto Rfx TRAM ([facility]) specific gravity ur auto rfx 1.002-1.035 Specif ic [place] Ur Auto Rfx TRAM ([facility]) urobilinogen, urine auto rfx 2.0 mg/dL 0.0-2.0 Above high n ormal Urobilinogen, Urine Auto Rfx [place] ([facility]) ketone, urine auto rfx 2+ negative Above high normal Ketone , Urine Auto Rfx TRAM ([facility]) glucose, urine (UA) auto rfx negative negative Glucose , Urine (UA) Auto Rfx TRAM ([facility]) nitrite, urine auto rfx negative negative Nitrite, Uri ne Auto Rfx TRAM ([facility]) bilirubin, urine auto rfx negative negative Bilirubin, Urine Auto Rfx TRAM ([facility]) leukocyte esterase ur auto rfx negative negative Leukocyte Esterase Ur Auto Rfx TRAM ([facility]) WBC, urine auto rfx 1 /hpf 0-3 WBC, Urine Auto Rfx [place] ([facility]) blood, urine blood rfx negative negative Blood, Urine Blood Rfx TRAM ([facility]) squam epithelial cell ur aurfx 9 /hpf 0-6 Squam Epithelial Cell Ur Aurfx [place] ([facility]) RBC, urine auto rfx 1 /hpf 0-3 RBC, Urine Auto Rfx [place] ([facility]) bacteria, urine auto rfx negative negative Bacteria, U rine Auto Rfx TRAM ([facility]) mucus, urine rfx small negative Mucus, Urine Rfx AT [facility] ([facility]) hyaline cast, urine auto rfx 0 /lpf 0-1 Hyaline Cast, Urine Auto Rfx TRAM ([facility]) ID Date Data Source [id number] 07/16/2020 01:50:00 PM EDT TRAM ([facility]) Name Value Range Interpretation Code Description Data Libia rce(s) Supporting Document(s) istat B-HCG < 5.0 Istat B-HCG TRAM ([facility]) ID Date Data Source [id number] 07/16/2020 01:50:00 PM EDT [facility]) Name Value Range Interpretation Code Description Data Libia rce(s) Supporting Document(s) pH,urine rfx 5.0 units 5.0-9.0 pH,urine Rfx EST[place] (No [facility]) color, urine rfx yellow yellow Color, Urine Rfx AT [facility] ([facility]) appearance, urine rfx hazy clear Appearance, Ur ine Rfx TRAM ([facility]) protein, urine auto rfx 1+ negative Above high normal Prote in, Urine Auto Rfx TRAM ([facility]) specific gravity ur auto rfx 1.002-1.035 Specif ic [place] Ur Auto Rfx TRAM ([facility]) ketone, urine auto rfx 2+ negative Above high normal Ketone , Urine Auto Rfx [place] ([facility]) glucose, urine (UA) auto rfx negative negative Glucose , Urine (UA) Auto Rfx [place] ([facility]) bilirubin, urine auto rfx negative negative Bilirubin, Urine Auto Rfx TRAM ([facility]) urobilinogen, urine auto rfx 2.0 mg/dL 0.0-2.0 Above high n ormal Urobilinogen, Urine Auto Rfx [place] ([facility]) nitrite, urine auto rfx negative negative Nitrite, Uri ne Auto Rfx TRAM ([facility]) leukocyte esterase ur auto rfx negative negative Leukocyte Esterase Ur Auto Rfx TRAM ([facility]) WBC, urine auto rfx 1 /hpf 0-3 WBC, Urine Auto Rfx TRAM ([facility]) blood, urine blood rfx negative negative Blood, Urine Blood Rfx TRAM ([facility]) bacteria, urine auto rfx negative negative Bacteria, U rine Auto Rfx TRAM ([facility]) RBC, urine auto rfx 1 /hpf 0-3 RBC, Urine Auto Rfx TRAM ([facility]) mucus, urine rfx small negative Mucus, Urine Rfx AT [facility] ([facility]) squam epithelial cell ur aurfx 9 /hpf 0-6 Squam Epithelial Cell Ur Aurfx TRAM ([facility]) hyaline cast, urine auto rfx 0 /lpf 0-1 Hyaline Cast, Urine Auto Rfx TRAM ([facility]) ID Date Data Source [id number] 07/16/2020 01:50:00 PM EDT TRAM ([facility]) Name Value Range Interpretation Code Description Data Libia rce(s) Supporting Document(s) istat B-HCG < 5.0 Istat B-HCG TRAM ([facility]) ID Date Data Source [id number] 07/16/2020 01:50:00 PM EDT [facility]) Name Value Range Interpretation Code Description Data Libia rce(s) Supporting Document(s) color, urine rfx yellow yellow Color, Urine Rfx AT [facility] ([facility]) appearance, urine rfx hazy clear Appearance, Ur ine Rfx [place] ([facility]) pH,urine rfx 5.0 units 5.0-9.0 pH,urine Rfx [place] (No [facility]) specific gravity ur auto rfx 1.002-1.035 Specif ic [place] Ur Auto Rfx [place] ([facility]) protein, urine auto rfx 1+ negative Above high normal Prote in, Urine Auto Rfx TRAM ([facility]) glucose, urine (UA) auto rfx negative negative Glucose , Urine (UA) Auto Rfx TRAM ([facility]) ketone, urine auto rfx 2+ negative Above high normal Ketone , Urine Auto Rfx TRAM ([facility]) urobilinogen, urine auto rfx 2.0 mg/dL 0.0-2.0 Above high n ormal Urobilinogen, Urine Auto Rfx TRAM ([facility]) bilirubin, urine auto rfx negative negative Bilirubin, Urine Auto Rfx TRAM ([facility]) leukocyte esterase ur auto rfx negative negative Leukocyte Esterase Ur Auto Rfx TRAM ([facility]) nitrite, urine auto rfx negative negative Nitrite, Uri ne Auto Rfx TRAM ([facility]) RBC, urine auto rfx 1 /hpf 0-3 RBC, Urine Auto Rfx TRAM ([facility]) blood, urine blood rfx negative negative Blood, Urine Blood Rfx TRAM ([facility]) WBC, urine auto rfx 1 /hpf 0-3 WBC, Urine Auto Rfx [place] ([facility]) mucus, urine rfx small negative Mucus, Urine Rfx AT [facility] ([facility]) bacteria, urine auto rfx negative negative Bacteria, U rine Auto Rfx TRAM ([facility]) squam epithelial cell ur aurfx 9 /hpf 0-6 Squam Epithelial Cell Ur Aurfx [place] ([facility]) hyaline cast, urine auto rfx 0 /lpf 0-1 Hyaline Cast, Urine Auto Rfx TRAM ([facility]) ID Date Data Source [id number] 07/16/2020 01:50:00 PM EDT TRAM ([facility]) Name Value Range Interpretation Code Description Data Libia rce(s) Supporting Document(s) istat B-HCG < 5.0 Istat B-HCG TRAM ([facility]) ID Date Data Source [id number] 07/16/2020 01:50:00 PM EDT [place] ([facility]) Name Value Range Interpretation Code Description Data Libia rce(s) Supporting Document(s) appearance, urine rfx hazy clear Appearance, Ur ine Rfx TRAM ([facility]) color, urine rfx yellow yellow Color, Urine Rfx AT [facility] ([facility]) specific gravity ur auto rfx 1.002-1.035 Specif ic [place] Ur Auto Rfx TRAM ([facility]) pH,urine rfx 5.0 units 5.0-9.0 pH,urine Rfx [place] (No [facility]) glucose, urine (UA) auto rfx negative negative Glucose , Urine (UA) Auto Rfx TRAM ([facility]) protein, urine auto rfx 1+ negative Above high normal Prote in, Urine Auto Rfx TRAM ([facility]) ketone, urine auto rfx 2+ negative Above high normal Ketone , Urine Auto Rfx TRAM ([facility]) bilirubin, urine auto rfx negative negative Bilirubin, Urine Auto Rfx TRAM ([facility]) urobilinogen, urine auto rfx 2.0 mg/dL 0.0-2.0 Above high n ormal Urobilinogen, Urine Auto Rfx TRAM ([facility]) blood, urine blood rfx negative negative Blood, Urine Blood Rfx TRAM ([facility]) nitrite, urine auto rfx negative negative Nitrite, Uri ne Auto Rfx TRAM ([facility]) leukocyte esterase ur auto rfx negative negative Leukocyte Esterase Ur Auto Rfx TRAM ([facility]) bacteria, urine auto rfx negative negative Bacteria, U rine Auto Rfx TRAM ([facility]) RBC, urine auto rfx 1 /hpf 0-3 RBC, Urine Auto Rfx [place] ([facility]) WBC, urine auto rfx 1 /hpf 0-3 WBC, Urine Auto Rfx TRAM ([facility]) squam epithelial cell ur aurfx 9 /hpf 0-6 Squam Epithelial Cell Ur Aurfx TRAM ([facility]) hyaline cast, urine auto rfx 0 /lpf 0-1 Hyaline Cast, Urine Auto Rfx TRAM ([facility]) mucus, urine rfx small negative Mucus, Urine Rfx AT [facility]) ID Date Data Source [id number] 07/16/2020 01:50:00 PM EDT [facility]) Name Value Range Interpretation Code Description Data Libia rce(s) Supporting Document(s) istat B-HCG < 5.0 Istat B-HCG TRAM ([facility]) ID Date Data Source [id number] 07/16/2020 01:50:00 PM EDT [facility]) Name Value Range Interpretation Code Description Data Libia rce(s) Supporting Document(s) appearance, urine rfx hazy clear Appearance, Ur ine Rfx TRAM ([facility]) specific gravity ur auto rfx 1.002-1.035 Specif ic [place] Ur Auto Rfx TRAM ([facility]) color, urine rfx yellow yellow Color, Urine Rfx AT [facility] ([facility]) pH,urine rfx 5.0 units 5.0-9.0 pH,urine Rfx TRAM ([facility]) protein, urine auto rfx 1+ negative Above high normal Prote in, Urine Auto Rfx TRAM ([facility]) glucose, urine (UA) auto rfx negative negative Glucose , Urine (UA) Auto Rfx TRAM ([facility]) urobilinogen, urine auto rfx 2.0 mg/dL 0.0-2.0 Above high n ormal Urobilinogen, Urine Auto Rfx [place] ([facility]) ketone, urine auto rfx 2+ negative Above high normal Ketone , Urine Auto Rfx TRAM ([facility]) bilirubin, urine auto rfx negative negative Bilirubin, Urine Auto Rfx TRAM ([facility]) nitrite, urine auto rfx negative negative Nitrite, Uri ne Auto Rfx TRAM ([facility]) leukocyte esterase ur auto rfx negative negative Leukocyte Esterase Ur Auto Rfx TRAM ([facility]) RBC, urine auto rfx 1 /hpf 0-3 RBC, Urine Auto Rfx TRAM ([facility]) WBC, urine auto rfx 1 /hpf 0-3 WBC, Urine Auto Rfx TRAM ([facility]) blood, urine blood rfx negative negative Blood, Urine Blood Rfx TRAM ([facility]) squam epithelial cell ur aurfx 9 /hpf 0-6 Squam Epithelial Cell Ur Aurfx TRAM ([facility]) bacteria, urine auto rfx negative negative Bacteria, U rine Auto Rfx TRAM ([facility]) mucus, urine rfx small negative Mucus, Urine Rfx AT [facility]) hyaline cast, urine auto rfx 0 /lpf 0-1 Hyaline Cast, Urine Auto Rfx TRAM ([facility]) ID Date Data Source [id number] 07/16/2020 01:50:00 PM EDT [facility]) Name Value Range Interpretation Code Description Data Libia rce(s) Supporting Document(s) istat B-HCG < 5.0 Istat B-HCG TRAM ([facility]) ID Date Data Source [id number] 07/16/2020 01:50:00 PM EDT [facility]) Name Value Range Interpretation Code Description Data Libia rce(s) Supporting Document(s) appearance, urine rfx hazy clear Appearance, Ur ine Rfx [facility]) color, urine rfx yellow yellow Color, Urine Rfx AT [facility]) specific gravity ur auto rfx 1.002-1.035 Specif ic [place] Ur Auto Rfx TRAM ([facility]) pH,urine rfx 5.0 units 5.0-9.0 pH,urine Rfx [place] ([facility]) glucose, urine (UA) auto rfx negative negative Glucose , Urine (UA) Auto Rfx TRAM ([facility]) protein, urine auto rfx 1+ negative Above high normal Prote in, Urine Auto Rfx TRAM ([facility]) bilirubin, urine auto rfx negative negative Bilirubin, Urine Auto Rfx TRAM ([facility]) urobilinogen, urine auto rfx 2.0 mg/dL 0.0-2.0 Above high n ormal Urobilinogen, Urine Auto Rfx TRAM ([facility]) ketone, urine auto rfx 2+ negative Above high normal Ketone , Urine Auto Rfx TRAM ([facility]) nitrite, urine auto rfx negative negative Nitrite, Uri ne Auto Rfx TRAM ([facility]) leukocyte esterase ur auto rfx negative negative Leukocyte Esterase Ur Auto Rfx TRAM ([facility]) RBC, urine auto rfx 1 /hpf 0-3 RBC, Urine Auto Rfx TRAM ([facility]) blood, urine blood rfx negative negative Blood, Urine Blood Rfx TRAM ([facility]) WBC, urine auto rfx 1 /hpf 0-3 WBC, Urine Auto Rfx TRAM ([facility]) bacteria, urine auto rfx negative negative Bacteria, U rine Auto Rfx TRAM ([facility]) squam epithelial cell ur aurfx 9 /hpf 0-6 Squam Epithelial Cell Ur Aurfx [place] ([facility]) mucus, urine rfx small negative Mucus, Urine Rfx AT [facility] ([facility]) hyaline cast, urine auto rfx 0 /lpf 0-1 Hyaline Cast, Urine Auto Rfx TRAM ([facility]) ID Date Data Source [id number] 07/16/2020 01:50:00 PM EDT TRAM ([facility]) Name Value Range Interpretation Code Description Data Libia rce(s) Supporting Document(s) istat B-HCG < 5.0 Istat B-HCG TRAM ([facility]) ID Date Data Source [id number] 07/16/2020 01:50:00 PM EDT TRAM ([facility]) Name Value Range Interpretation Code Description Data Libia rce(s) Supporting Document(s) appearance, urine rfx hazy clear Appearance, Ur ine Rfx [place] ([facility]) color, urine rfx yellow yellow Color, Urine Rfx AT [facility] ([facility]) pH,urine rfx 5.0 units 5.0-9.0 pH,urine Rfx [place] (No [facility]) specific gravity ur auto rfx 1.002-1.035 Specif ic [place] Ur Auto Rfx TRAM ([facility]) glucose, urine (UA) auto rfx negative negative Glucose , Urine (UA) Auto Rfx [place] ([facility]) protein, urine auto rfx 1+ negative Above high normal Prote in, Urine Auto Rfx TRAM ([facility]) urobilinogen, urine auto rfx 2.0 mg/dL 0.0-2.0 Above high n ormal Urobilinogen, Urine Auto Rfx TRAM ([facility]) ketone, urine auto rfx 2+ negative Above high normal Ketone , Urine Auto Rfx TRAM ([facility]) bilirubin, urine auto rfx negative negative Bilirubin, Urine Auto Rfx [place] ([facility]) nitrite, urine auto rfx negative negative Nitrite, Uri ne Auto Rfx [place] ([facility]) leukocyte esterase ur auto rfx negative negative Leukocyte Esterase Ur Auto Rfx TRAM ([facility]) blood, urine blood rfx negative negative Blood, Urine Blood Rfx TRAM ([facility]) WBC, urine auto rfx 1 /hpf 0-3 WBC, Urine Auto Rfx [place] ([facility]) RBC, urine auto rfx 1 /hpf 0-3 RBC, Urine Auto Rfx TRAM ([facility]) squam epithelial cell ur aurfx 9 /hpf 0-6 Squam Epithelial Cell Ur Aurfx [place] ([facility]) bacteria, urine auto rfx negative negative Bacteria, U rine Auto Rfx TRAM ([facility]) hyaline cast, urine auto rfx 0 /lpf 0-1 Hyaline Cast, Urine Auto Rfx TRAM ([facility]) mucus, urine rfx small negative Mucus, Urine Rfx AT [facility] ([facility]) ID Date Data Source [id number] 07/16/2020 01:50:00 PM EDT TRAM ([facility]) Name Value Range Interpretation Code Description Data Libia rce(s) Supporting Document(s) istat B-HCG < 5.0 Istat B-HCG TRAM ([facility]) ID Date Data Source [id number] 07/16/2020 01:50:00 PM EDT TRAM ([facility]) Name Value Range Interpretation Code Description Data Libia rce(s) Supporting Document(s) appearance, urine rfx hazy clear Appearance, Ur ine Rfx TRAM ([facility]) color, urine rfx yellow yellow Color, Urine Rfx AT [facility] ([facility]) pH,urine rfx 5.0 units 5.0-9.0 pH,urine Rfx TRAM ([facility]) specific gravity ur auto rfx 1.002-1.035 Specif ic [place] Ur Auto Rfx TRAM ([facility]) protein, urine auto rfx 1+ negative Above high normal Prote in, Urine Auto Rfx TRAM ([facility]) glucose, urine (UA) auto rfx negative negative Glucose , Urine (UA) Auto Rfx TRAM ([facility]) bilirubin, urine auto rfx negative negative Bilirubin, Urine Auto Rfx TRAM ([facility]) ketone, urine auto rfx 2+ negative Above high normal Ketone , Urine Auto Rfx TRAM ([facility]) urobilinogen, urine auto rfx 2.0 mg/dL 0.0-2.0 Above high n ormal Urobilinogen, Urine Auto Rfx TRAM ([facility]) nitrite, urine auto rfx negative negative Nitrite, Uri ne Auto Rfx TRAM ([facility]) leukocyte esterase ur auto rfx negative negative Leukocyte Esterase Ur Auto Rfx TRAM ([facility]) RBC, urine auto rfx 1 /hpf 0-3 RBC, Urine Auto Rfx TRAM ([facility]) WBC, urine auto rfx 1 /hpf 0-3 WBC, Urine Auto Rfx TRAM ([facility]) blood, urine blood rfx negative negative Blood, Urine Blood Rfx TRAM ([facility]) squam epithelial cell ur aurfx 9 /hpf 0-6 Squam Epithelial Cell Ur Aurfx TRAM ([facility]) bacteria, urine auto rfx negative negative Bacteria, U rine Auto Rfx TRAM ([facility]) mucus, urine rfx small negative Mucus, Urine Rfx AT [facility]) hyaline cast, urine auto rfx 0 /lpf 0-1 Hyaline Cast, Urine Auto Rfx TRAM ([facility]) ID Date Data Source [id number] 07/16/2020 01:50:00 PM EDT [facility]) Name Value Range Interpretation Code Description Data Libia rce(s) Supporting Document(s) istat B-HCG < 5.0 Istat B-HCG TRAM ([facility]) ID Date Data Source [id number] 07/16/2020 01:49:00 PM EDT [facility]) Name Value Range Interpretation Code Description Data Libia rce(s) Supporting Document(s) chlamydia DNA amplification negative negative Chlamydi a DNA Amplification TRAM ([facility]) GC DNA amplification negative negative GC DNA Amplific ation TRAM ([facility]) trichomonas vaginalis (amp) not detected negative Tricho monas Vaginalis (Amp) [facility]) ID Date Data Source [id number] 07/16/2020 01:49:00 PM EDT [place] ([facility]) Name Value Range Interpretation Code Description Data Libia rce(s) Supporting Document(s) glucose, fasting 91 mg/dL 70-100 Glucose, Fasting AT [facility] ([facility]) blood urea nitrogen 15 mg/dL 7-18 Blood Urea Nitro gen [place] ([facility]) creatinine for GFR 0.79 mg/dL 0.55-1.30 Creatinine for GF R [place] ([facility]) potassium serum 4.0 mEq/L 3.5-5.1 Potassium Serum ATHE NA ([facility]) sodium level 140 mEq/L 136-145 Sodium Level EST[place]LA ([facility]) chloride level 106 mEq/L 98-107 Chloride Level TRAM ([facility]) anion gap 8 mEq/L 8-16 Anion Gap TRAM ([facility]) carbon dioxide level 26 mEq/L 21-32 Carbon Dioxide Level TRAM ([facility]) calcium level 10.0 mg/dL 8.5-10.1 Calcium Level TRAM ( [facility]) ID Date Data Source [id number] 07/16/2020 01:49:00 PM EDT [place] ([facility]) Name Value Range Interpretation Code Description Data Libia rce(s) Supporting Document(s) lipase 82 U/L 73-393 Lipase EST[place]LA ([facility]) ID Date Data Source [id number] 07/16/2020 01:49:00 PM EDT [facility]) Name Value Range Interpretation Code Description Data Libia rce(s) Supporting Document(s) AST/SGOT 7 U/L 7-37 AST/SGOT TRAM ([facility]) ALT/SGPT 15 U/L 12-78 ALT/SGPT [place] ([facility]) alkaline phosphatase 66 U/L 45-117 Alkaline Phosph atase TRAM ([facility]) bilirubin,total 0.7 mg/dL 0.2-1.0 Bilirubin,total ATHE NA ([facility]) bilirubin,direct 0.1 mg/dL 0.0-0.2 Bilirubin,direct AT [facility] ([facility]) total protein 7.6 gm/dL 6.4-8.2 Total Protein EST[place] ( [facility]) albumin 4.4 gm/dL 3.2-5.2 Albumin [place] ([facility]) albumin/globulin ratio 1.2-2.2 Albumin/globu dyana Ratio [place] ([facility]) ID Date Data Source [id number] 07/16/2020 01:49:00 PM EDT TRAM ([facility]) Name Value Range Interpretation Code Description Data Libia rce(s) Supporting Document(s) white blood count 7.3 10 4.0-10.0 White Blood Count [place] ([facility]) red blood count 5.13 10 4.00-5.40 Red Blood Count ATHE ([facility]) hemoglobin 15.1 g/dL 12.0-15.5 Hemoglobin [place] ([facility]) hematocrit 45.7 % 36.0-47.0 Hematocrit [place] ([facility]) mean corpuscular volume 89.1 fL 80.0-96.0 Mean Corpusc ular Volume [place] ([facility]) mean corpuscular hemoglobin 29.4 pg 27.0-33.0 Mean Cor puscular Hemoglobin [place] ([facility]) mean corpuscular HGB conc 33.0 g/dL 32.0-36.5 Mean Corpu scular HGB Conc [place] ([facility]) red cell distribution width 13.9 % 11.5-14.5 Red Cell Distribution Width [place] ([facility]) platelet count, automated 301 10 150-450 Platelet C ount, Automated [place] ([facility]) neutrophils % 65.2 % 36.0-66.0 Neutrophils % EST[place] ( [facility]) lymph % 23.7 % 24.0-44.0 Below low normal Lymph % EST[place] ( [facility]) mono % 6.7 % 2.0-8.0 [place] % ESTHELA ([facility]) eos % 3.4 % 0.0-3.0 Above high normal Eos % [place] ([facility]) baso % 0.7 % 0.0-1.0 Baso % TRAM ([facility]) immature granulocyte % 0.3 % 0-3.0 Immature Gran ulocyte % TRAM ([facility]) nucleated red blood cell % 0.0 % 0-0 Nucleated Red Blood Cell % TRAM ([facility]) neutrophils # 4.8 10 1.5-8.5 Neutrophils # TRAM ( [facility]) lymph # 1.7 10 1.5-5.0 Lymph # TRAM ([facility]) mono # 0.5 10 0.0-0.8 [place] # [place]HELA ([facility]) eos # 0.3 10 0.0-0.5 Eos # TRAM ([facility]) baso # 0.1 10 0.0-0.2 Baso # TRAM ([facility]) ID Date Data Source [id number] 07/16/2020 01:49:00 PM EDT TRAM ([facility]) Name Value Range Interpretation Code Description Data Libia rce(s) Supporting Document(s) chlamydia DNA amplification negative negative Chlamydi a DNA Amplification TRAM ([facility]) GC DNA amplification negative negative GC DNA Amplific ation TRAM ([facility]) trichomonas vaginalis (amp) not detected negative Tricho monas Vaginalis (Amp) TRAM ([facility]) ID Date Data Source [id number] 07/16/2020 01:49:00 PM EDT TRAM ([facility]) Name Value Range Interpretation Code Description Data Libia rce(s) Supporting Document(s) glucose, fasting 91 mg/dL 70-100 Glucose, Fasting AT [facility] ([facility]) blood urea nitrogen 15 mg/dL 7-18 Blood Urea Nitro gen TRAM ([facility]) creatinine for GFR 0.79 mg/dL 0.55-1.30 Creatinine for GF R ESTHELA ([facility]) potassium serum 4.0 mEq/L 3.5-5.1 Potassium Serum ATHE NA ([facility]) sodium level 140 mEq/L 136-145 Sodium Level ESTHE[place] ([facility]) anion gap 8 mEq/L 8-16 Anion Gap EST[place] ([facility]) carbon dioxide level 26 mEq/L 21-32 Carbon Dioxide Level ESTHELA ([facility]) chloride level 106 mEq/L 98-107 Chloride Level ESTHELA ([facility]) calcium level 10.0 mg/dL 8.5-10.1 Calcium Level ESTHELA ( [facility]) ID Date Data Source [id number] 07/16/2020 01:49:00 PM EDT ESTHELA ([facility]) Name Value Range Interpretation Code Description Data Libia rce(s) Supporting Document(s) lipase 82 U/L 73-393 Lipase ESTHELA ([facility]) ID Date Data Source [id number] 07/16/2020 01:49:00 PM EDT TRAM ([facility]) Name Value Range Interpretation Code Description Data Libia rce(s) Supporting Document(s) alkaline phosphatase 66 U/L 45-117 Alkaline Phosph atase [place] ([facility]) AST/SGOT 7 U/L 7-37 AST/SGOT [place] ([facility]) ALT/SGPT 15 U/L 12-78 ALT/SGPT [place] ([facility]) total protein 7.6 gm/dL 6.4-8.2 Total Protein ESTHELA ( [facility]) bilirubin,total 0.7 mg/dL 0.2-1.0 Bilirubin,total ATHE ([facility]) bilirubin,direct 0.1 mg/dL 0.0-0.2 Bilirubin,direct AT AMY [facility]) albumin 4.4 gm/dL 3.2-5.2 Albumin ESTHEAL ([facility]) albumin/globulin ratio 1.2-2.2 Albumin/globu dyana Ratio ESTHELA ([facility]) ID Date Data Source [id number] 07/16/2020 01:49:00 PM EDT ESTHELA ([facility]) Name Value Range Interpretation Code Description Data Libia rce(s) Supporting Document(s) hemoglobin 15.1 g/dL 12.0-15.5 Hemoglobin ESTHELA ([facility]) red blood count 5.13 10 4.00-5.40 Red Blood Count ATHE ([facility]) white blood count 7.3 10 4.0-10.0 White Blood Count ESTHELA ([facility]) mean corpuscular hemoglobin 29.4 pg 27.0-33.0 Mean Cor puscular Hemoglobin ESTHELA ([facility]) hematocrit 45.7 % 36.0-47.0 Hematocrit EST[place]LA ([facility]) mean corpuscular volume 89.1 fL 80.0-96.0 Mean Corpusc ular Volume ESTHELA ([facility]) mean corpuscular HGB conc 33.0 g/dL 32.0-36.5 Mean Corpu scular HGB Conc ESTHELA ([facility]) red cell distribution width 13.9 % 11.5-14.5 Red Cell Distribution Width EST[place] ([facility]) neutrophils % 65.2 % 36.0-66.0 Neutrophils % ESTHELA ( [facility]) lymph % 23.7 % 24.0-44.0 Below low normal Lymph % ESTHELA ( [facility]) platelet count, automated 301 10 150-450 Platelet C ount, Automated EST[place] ([facility]) baso % 0.7 % 0.0-1.0 Baso % ESTHELA ([facility]) eos % 3.4 % 0.0-3.0 Above high normal Eos % ESTHELA ([facility]) mono % 6.7 % 2.0-8.0 [place] % ESTHELA ([facility]) nucleated red blood cell % 0.0 % 0-0 Nucleated Red Blood Cell % ESTHELA ([facility]) neutrophils # 4.8 10 1.5-8.5 Neutrophils # TRAM ( [facility]) immature granulocyte % 0.3 % 0-3.0 Immature Gran ulocyte % ESTHELA ([facility]) eos # 0.3 10 0.0-0.5 Eos # ESTHELA ([facility]) mono # 0.5 10 0.0-0.8 [place] # TRAM ([facility]) lymph # 1.7 10 1.5-5.0 Lymph # TRAM ([facility]) baso # 0.1 10 0.0-0.2 Baso # TRAM ([facility]) ID Date Data Source [id number] 07/16/2020 01:49:00 PM EDT TRAM ([facility]) Name Value Range Interpretation Code Description Data Libia rce(s) Supporting Document(s) chlamydia DNA amplification negative negative Chlamydi a DNA Amplification TRAM ([facility]) trichomonas vaginalis (amp) not detected negative Tricho monas Vaginalis (Amp) TRAM ([facility]) GC DNA amplification negative negative GC DNA Amplific ation TRAM ([facility]) ID Date Data Source [id number] 07/16/2020 01:49:00 PM EDT [facility]) Name Value Range Interpretation Code Description Data Libia rce(s) Supporting Document(s) glucose, fasting 91 mg/dL 70-100 Glucose, Fasting AT [facility]) blood urea nitrogen 15 mg/dL 7-18 Blood Urea Nitro gen ESTHELA ([facility]) sodium level 140 mEq/L 136-145 Sodium Level ESTHELA ([facility]) creatinine for GFR 0.79 mg/dL 0.55-1.30 Creatinine for GF R TRAM ([facility]) potassium serum 4.0 mEq/L 3.5-5.1 Potassium Serum ATH NA ([facility]) chloride level 106 mEq/L 98-107 Chloride Level TRAM ([facility]) carbon dioxide level 26 mEq/L 21-32 Carbon Dioxide Level ESTHELA ([facility]) calcium level 10.0 mg/dL 8.5-10.1 Calcium Level ESTHELA ( [facility]) anion gap 8 mEq/L 8-16 Anion Gap EST[place]LA ([facility]) ID Date Data Source [id number] 07/16/2020 01:49:00 PM EDT ESTHELA ([facility]) Name Value Range Interpretation Code Description Data Libia rce(s) Supporting Document(s) lipase 82 U/L 73-393 Lipase EST[place] ([facility]) ID Date Data Source [id number] 07/16/2020 01:49:00 PM EDT ESTHELA ([facility]) Name Value Range Interpretation Code Description Data Libia rce(s) Supporting Document(s) alkaline phosphatase 66 U/L 45-117 Alkaline Phosph atase EST[place] ([facility]) ALT/SGPT 15 U/L 12-78 ALT/SGPT [place] ([facility]) AST/SGOT 7 U/L 7-37 AST/SGOT [place] ([facility]) bilirubin,direct 0.1 mg/dL 0.0-0.2 Bilirubin,direct AT AMY ([facility]) bilirubin,total 0.7 mg/dL 0.2-1.0 Bilirubin,total ATHE NA ([facility]) total protein 7.6 gm/dL 6.4-8.2 Total Protein ESTHELA ( [facility]) albumin/globulin ratio 1.2-2.2 Albumin/globu dyana Ratio ESTHELA ([facility]) albumin 4.4 gm/dL 3.2-5.2 Albumin EST[place] ([facility]) ID Date Data Source [id number] 07/16/2020 01:49:00 PM EDT ESTHE[place] ([facility]) Name Value Range Interpretation Code Description Data Libia rce(s) Supporting Document(s) white blood count 7.3 10 4.0-10.0 White Blood Count EST[place] ([facility]) red blood count 5.13 10 4.00-5.40 Red Blood Count ATHE NA ([facility]) hemoglobin 15.1 g/dL 12.0-15.5 Hemoglobin ESTHELA ([facility]) hematocrit 45.7 % 36.0-47.0 Hematocrit EST[place] ([facility]) mean corpuscular volume 89.1 fL 80.0-96.0 Mean Corpusc ular Volume ESTHELA ([facility]) mean corpuscular HGB conc 33.0 g/dL 32.0-36.5 Mean Corpu scular HGB Conc ESTHELA ([facility]) mean corpuscular hemoglobin 29.4 pg 27.0-33.0 Mean Cor puscular Hemoglobin ESTHELA ([facility]) platelet count, automated 301 10 150-450 Platelet C ount, Automated EST[place] ([facility]) red cell distribution width 13.9 % 11.5-14.5 Red Cell Distribution Width EST[place] ([facility]) mono % 6.7 % 2.0-8.0 [place] % ESTHELA ([facility]) lymph % 23.7 % 24.0-44.0 Below low normal Lymph % TRAM ( [facility]) neutrophils % 65.2 % 36.0-66.0 Neutrophils % ESTHELA ( [facility]) eos % 3.4 % 0.0-3.0 Above high normal Eos % ESTHELA ([facility]) baso % 0.7 % 0.0-1.0 Baso % ESTHELA ([facility]) immature granulocyte % 0.3 % 0-3.0 Immature Gran ulocyte % ESTHELA ([facility]) nucleated red blood cell % 0.0 % 0-0 Nucleated Red Blood Cell % ESTHELA ([facility]) neutrophils # 4.8 10 1.5-8.5 Neutrophils # ESTHELA ( [facility]) mono # 0.5 10 0.0-0.8 [place] # ESTHELA ([facility]) eos # 0.3 10 0.0-0.5 Eos # ESTHELA ([facility]) lymph # 1.7 10 1.5-5.0 Lymph # ESTHELA ([facility]) baso # 0.1 10 0.0-0.2 Baso # ESTHELA ([facility]) ID Date Data Source [id number] 07/16/2020 01:49:00 PM EDT TRAM ([facility]) Name Value Range Interpretation Code Description Data Libia rce(s) Supporting Document(s) GC DNA amplification negative negative GC DNA Amplific ation ESTHELA ([facility]) chlamydia DNA amplification negative negative Chlamydi a DNA Amplification TRAM ([facility]) trichomonas vaginalis (amp) not detected negative Tricho monas Vaginalis (Amp) TRAM ([facility]) ID Date Data Source [id number] 07/16/2020 01:49:00 PM EDT TRAM ([facility]) Name Value Range Interpretation Code Description Data Libia rce(s) Supporting Document(s) creatinine for GFR 0.79 mg/dL 0.55-1.30 Creatinine for GF R TRAM ([facility]) sodium level 140 mEq/L 136-145 Sodium Level TRAM ([facility]) blood urea nitrogen 15 mg/dL 7-18 Blood Urea Nitro gen EST[place] ([facility]) glucose, fasting 91 mg/dL 70-100 Glucose, Fasting AT [facility]) carbon dioxide level 26 mEq/L 21-32 Carbon Dioxide Level ESTHELA ([facility]) chloride level 106 mEq/L 98-107 Chloride Level EST[place]LA ([facility]) potassium serum 4.0 mEq/L 3.5-5.1 Potassium Serum ATHE NA ([facility]) anion gap 8 mEq/L 8-16 Anion Gap TRAM ([facility]) calcium level 10.0 mg/dL 8.5-10.1 Calcium Level TRAM ( [facility]) ID Date Data Source [id number] 07/16/2020 01:49:00 PM EDT ESTHELA ([facility]) Name Value Range Interpretation Code Description Data Libia rce(s) Supporting Document(s) lipase 82 U/L 73-393 Lipase ESTHELA ([facility]) ID Date Data Source [id number] 07/16/2020 01:49:00 PM EDT ESTHELA ([facility]) Name Value Range Interpretation Code Description Data Libia rce(s) Supporting Document(s) ALT/SGPT 15 U/L 12-78 ALT/SGPT [place] ([facility]) alkaline phosphatase 66 U/L 45-117 Alkaline Phosph atase EST[place]LA ([facility]) AST/SGOT 7 U/L 7-37 AST/SGOT [place] ([facility]) bilirubin,direct 0.1 mg/dL 0.0-0.2 Bilirubin,direct AT AMY ([facility]) bilirubin,total 0.7 mg/dL 0.2-1.0 Bilirubin,total ATHE NA ([facility]) albumin 4.4 gm/dL 3.2-5.2 Albumin ESTHELA ([facility]) total protein 7.6 gm/dL 6.4-8.2 Total Protein ESTHELA ( [facility]) albumin/globulin ratio 1.2-2.2 Albumin/globu dyana Ratio ESTHELA ([facility]) ID Date Data Source [id number] 07/16/2020 01:49:00 PM EDT ESTHELA ([facility]) Name Value Range Interpretation Code Description Data Libia rce(s) Supporting Document(s) white blood count 7.3 10 4.0-10.0 White Blood Count ESTHELA ([facility]) red blood count 5.13 10 4.00-5.40 Red Blood Count ATHE NA ([facility]) hematocrit 45.7 % 36.0-47.0 Hematocrit ESTHELA ([facility]) mean corpuscular volume 89.1 fL 80.0-96.0 Mean Corpusc ular Volume ESTHELA ([facility]) hemoglobin 15.1 g/dL 12.0-15.5 Hemoglobin ESTHELA ([facility]) mean corpuscular HGB conc 33.0 g/dL 32.0-36.5 Mean Corpu scular HGB Conc ESTHELA ([facility]) mean corpuscular hemoglobin 29.4 pg 27.0-33.0 Mean Cor puscular Hemoglobin ESTHELA ([facility]) red cell distribution width 13.9 % 11.5-14.5 Red Cell Distribution Width ESTHELA ([facility]) platelet count, automated 301 10 150-450 Platelet C ount, Automated EST[place] ([facility]) neutrophils % 65.2 % 36.0-66.0 Neutrophils % ESTHELA ( [facility]) lymph % 23.7 % 24.0-44.0 Below low normal Lymph % TRAM ( [facility]) mono % 6.7 % 2.0-8.0 [place] % ESTHELA ([facility]) baso % 0.7 % 0.0-1.0 Baso % ESTHELA ([facility]) eos % 3.4 % 0.0-3.0 Above high normal Eos % TRAM ([facility]) immature granulocyte % 0.3 % 0-3.0 Immature Gran ulocyte % TRAM ([facility]) nucleated red blood cell % 0.0 % 0-0 Nucleated Red Blood Cell % ESTHELA ([facility]) neutrophils # 4.8 10 1.5-8.5 Neutrophils # ESTHELA ( [facility]) lymph # 1.7 10 1.5-5.0 Lymph # ESTHELA ([facility]) baso # 0.1 10 0.0-0.2 Baso # ESTHELA ([facility]) mono # 0.5 10 0.0-0.8 [place] # ESTHELA ([facility]) eos # 0.3 10 0.0-0.5 Eos # ESTHELA ([facility]) ID Date Data Source [id number] 07/16/2020 01:49:00 PM EDT TRAM ([facility]) Name Value Range Interpretation Code Description Data Libia rce(s) Supporting Document(s) chlamydia DNA amplification negative negative Chlamydi a DNA Amplification [place] ([facility]) trichomonas vaginalis (amp) not detected negative Tricho monas Vaginalis (Amp) [place] ([facility]) GC DNA amplification negative negative GC DNA Amplific ation ESTHELA ([facility]) ID Date Data Source [id number] 07/16/2020 01:49:00 PM EDT ESTHE[place] ([facility]) Name Value Range Interpretation Code Description Data Libia rce(s) Supporting Document(s) glucose, fasting 91 mg/dL 70-100 Glucose, Fasting AT [facility]) sodium level 140 mEq/L 136-145 Sodium Level [place] ([facility]) potassium serum 4.0 mEq/L 3.5-5.1 Potassium Serum ATHE NA ([facility]) creatinine for GFR 0.79 mg/dL 0.55-1.30 Creatinine for GF R ESTHELA ([facility]) blood urea nitrogen 15 mg/dL 7-18 Blood Urea Nitro gen EST[place] ([facility]) chloride level 106 mEq/L 98-107 Chloride Level TRAM ([facility]) carbon dioxide level 26 mEq/L 21-32 Carbon Dioxide Level EST[place]LA ([facility]) anion gap 8 mEq/L 8-16 Anion Gap TRAM ([facility]) calcium level 10.0 mg/dL 8.5-10.1 Calcium Level TRAM ( [facility]) ID Date Data Source [id number] 07/16/2020 01:49:00 PM EDT [facility]) Name Value Range Interpretation Code Description Data Libia rce(s) Supporting Document(s) lipase 82 U/L 73-393 Lipase TRAM ([facility]) ID Date Data Source [id number] 07/16/2020 01:49:00 PM EDT ESTHELA ([facility]) Name Value Range Interpretation Code Description Data Libia rce(s) Supporting Document(s) AST/SGOT 7 U/L 7-37 AST/SGOT [place] ([facility]) ALT/SGPT 15 U/L 12-78 ALT/SGPT [place] ([facility]) bilirubin,total 0.7 mg/dL 0.2-1.0 Bilirubin,total ATHE NA ([facility]) alkaline phosphatase 66 U/L 45-117 Alkaline Phosph atase EST[place] ([facility]) albumin/globulin ratio 1.2-2.2 Albumin/globu dyana Ratio ESTHELA ([facility]) albumin 4.4 gm/dL 3.2-5.2 Albumin EST[place]LA ([facility]) total protein 7.6 gm/dL 6.4-8.2 Total Protein ESTHELA ( [facility]) bilirubin,direct 0.1 mg/dL 0.0-0.2 Bilirubin,direct AT AMY ([facility]) ID Date Data Source [id number] 07/16/2020 01:49:00 PM EDT ESTHE[place] ([facility]) Name Value Range Interpretation Code Description Data Libia rce(s) Supporting Document(s) white blood count 7.3 10 4.0-10.0 White Blood Count EST[place] ([facility]) hemoglobin 15.1 g/dL 12.0-15.5 Hemoglobin EST[place] ([facility]) red blood count 5.13 10 4.00-5.40 Red Blood Count ATHE NA ([facility]) hematocrit 45.7 % 36.0-47.0 Hematocrit EST[place]LA ([facility]) mean corpuscular hemoglobin 29.4 pg 27.0-33.0 Mean Cor puscular Hemoglobin EST[place]LA ([facility]) mean corpuscular volume 89.1 fL 80.0-96.0 Mean Corpusc ular Volume ESTHELA ([facility]) mean corpuscular HGB conc 33.0 g/dL 32.0-36.5 Mean Corpu scular HGB Conc TRAM ([facility]) platelet count, automated 301 10 150-450 Platelet C ount, Automated EST[place] ([facility]) red cell distribution width 13.9 % 11.5-14.5 Red Cell Distribution Width EST[place]LA ([facility]) neutrophils % 65.2 % 36.0-66.0 Neutrophils % TRAM ( [facility]) eos % 3.4 % 0.0-3.0 Above high normal Eos % ESTHELA ([facility]) mono % 6.7 % 2.0-8.0 [place] % TRAM ([facility]) lymph % 23.7 % 24.0-44.0 Below low normal Lymph % TRAM ( [facility]) baso % 0.7 % 0.0-1.0 Baso % TRAM ([facility]) immature granulocyte % 0.3 % 0-3.0 Immature Gran ulocyte % TRAM ([facility]) nucleated red blood cell % 0.0 % 0-0 Nucleated Red Blood Cell % TRAM ([facility]) mono # 0.5 10 0.0-0.8 [place] # TRAM ([facility]) eos # 0.3 10 0.0-0.5 Eos # TRAM ([facility]) lymph # 1.7 10 1.5-5.0 Lymph # TRAM ([facility]) neutrophils # 4.8 10 1.5-8.5 Neutrophils # TRAM ( [facility]) baso # 0.1 10 0.0-0.2 Baso # TRAM ([facility]) ID Date Data Source [id number] 07/16/2020 01:49:00 PM EDT TRAM ([facility]) Name Value Range Interpretation Code Description Data Libia rce(s) Supporting Document(s) chlamydia DNA amplification negative negative Chlamydi a DNA Amplification [place] ([facility]) trichomonas vaginalis (amp) not detected negative Tricho monas Vaginalis (Amp) TRAM ([facility]) GC DNA amplification negative negative GC DNA Amplific ation EST[place]LA ([facility]) ID Date Data Source [id number] 07/16/2020 01:49:00 PM EDT [facility]) Name Value Range Interpretation Code Description Data Libia rce(s) Supporting Document(s) glucose, fasting 91 mg/dL 70-100 Glucose, Fasting AT [facility] ([facility]) creatinine for GFR 0.79 mg/dL 0.55-1.30 Creatinine for GF R TRAM ([facility]) sodium level 140 mEq/L 136-145 Sodium Level ESTHELA (No [facility]) blood urea nitrogen 15 mg/dL 7-18 Blood Urea Nitro gen EST[place]LA ([facility]) carbon dioxide level 26 mEq/L 21-32 Carbon Dioxide Level TRAM ([facility]) potassium serum 4.0 mEq/L 3.5-5.1 Potassium Serum ATH NA ([facility]) chloride level 106 mEq/L 98-107 Chloride Level TRAM ([facility]) calcium level 10.0 mg/dL 8.5-10.1 Calcium Level TRAM ( [facility]) anion gap 8 mEq/L 8-16 Anion Gap TRAM ([facility]) ID Date Data Source [id number] 07/16/2020 01:49:00 PM EDT [facility]) Name Value Range Interpretation Code Description Data Libia rce(s) Supporting Document(s) lipase 82 U/L 73-393 Lipase TRAM ([facility]) ID Date Data Source [id number] 07/16/2020 01:49:00 PM EDT [facility]) Name Value Range Interpretation Code Description Data Libia rce(s) Supporting Document(s) AST/SGOT 7 U/L 7-37 AST/SGOT TRAM ([facility]) ALT/SGPT 15 U/L 12-78 ALT/SGPT TRAM ([facility]) bilirubin,direct 0.1 mg/dL 0.0-0.2 Bilirubin,direct AT AMY ([facility]) bilirubin,total 0.7 mg/dL 0.2-1.0 Bilirubin,total ATHE ([facility]) alkaline phosphatase 66 U/L 45-117 Alkaline Phosph atase [place] ([facility]) total protein 7.6 gm/dL 6.4-8.2 Total Protein EST[place] ( [facility]) albumin 4.4 gm/dL 3.2-5.2 Albumin [place] ([facility]) albumin/globulin ratio 1.2-2.2 Albumin/globu dyana Ratio TRAM ([facility]) ID Date Data Source [id number] 07/16/2020 01:49:00 PM EDT TRAM ([facility]) Name Value Range Interpretation Code Description Data Libia rce(s) Supporting Document(s) white blood count 7.3 10 4.0-10.0 White Blood Count [place] ([facility]) hemoglobin 15.1 g/dL 12.0-15.5 Hemoglobin TRAM ([facility]) red blood count 5.13 10 4.00-5.40 Red Blood Count [facility] ([facility]) mean corpuscular volume 89.1 fL 80.0-96.0 Mean Corpusc ular Volume TRAM ([facility]) hematocrit 45.7 % 36.0-47.0 Hematocrit TRAM ([facility]) red cell distribution width 13.9 % 11.5-14.5 Red Cell Distribution Width [place] ([facility]) mean corpuscular hemoglobin 29.4 pg 27.0-33.0 Mean Cor puscular Hemoglobin [place] ([facility]) mean corpuscular HGB conc 33.0 g/dL 32.0-36.5 Mean Corpu scular HGB Conc [place] ([facility]) platelet count, automated 301 10 150-450 Platelet C ount, Automated [place] ([facility]) neutrophils % 65.2 % 36.0-66.0 Neutrophils % [place] ( [facility]) lymph % 23.7 % 24.0-44.0 Below low normal Lymph % [place] ( [facility]) mono % 6.7 % 2.0-8.0 [place] % [place]LA ([facility]) baso % 0.7 % 0.0-1.0 Baso % [place] ([facility]) eos % 3.4 % 0.0-3.0 Above high normal Eos % [place] ([facility]) nucleated red blood cell % 0.0 % 0-0 Nucleated Red Blood Cell % [place] ([facility]) immature granulocyte % 0.3 % 0-3.0 Immature Gran ulocyte % TRAM ([facility]) neutrophils # 4.8 10 1.5-8.5 Neutrophils # [place] ( [facility]) mono # 0.5 10 0.0-0.8 [place] # TRAM ([facility]) lymph # 1.7 10 1.5-5.0 Lymph # [place] ([facility]) eos # 0.3 10 0.0-0.5 Eos # [place] ([facility]) baso # 0.1 10 0.0-0.2 Baso # [place] ([facility]) ID Date Data Source [id number] 07/16/2020 01:49:00 PM EDT TRAM ([facility]) Name Value Range Interpretation Code Description Data Libia rce(s) Supporting Document(s) chlamydia DNA amplification negative negative Chlamydi a DNA Amplification TRAM ([facility]) GC DNA amplification negative negative GC DNA Amplific ation [place] ([facility]) trichomonas vaginalis (amp) not detected negative Tricho monas Vaginalis (Amp) TRAM ([facility]) ID Date Data Source [id number] 07/16/2020 01:49:00 PM EDT [facility] [facility]) Name Value Range Interpretation Code Description Data Libia rce(s) Supporting Document(s) glucose, fasting 91 mg/dL 70-100 Glucose, Fasting AT [facility] ([facility]) blood urea nitrogen 15 mg/dL 7-18 Blood Urea Nitro gen EST[place] ([facility]) creatinine for GFR 0.79 mg/dL 0.55-1.30 Creatinine for GF R ESTHELA ([facility]) chloride level 106 mEq/L 98-107 Chloride Level EST[place]LA ([facility]) potassium serum 4.0 mEq/L 3.5-5.1 Potassium Serum ATHE NA ([facility]) sodium level 140 mEq/L 136-145 Sodium Level ESTHELA (No [facility]) anion gap 8 mEq/L 8-16 Anion Gap ESTHELA ([facility]) carbon dioxide level 26 mEq/L 21-32 Carbon Dioxide Level TRAM ([facility]) calcium level 10.0 mg/dL 8.5-10.1 Calcium Level TRAM ( [facility]) ID Date Data Source [id number] 07/16/2020 01:49:00 PM EDT TRAM ([facility]) Name Value Range Interpretation Code Description Data Libia rce(s) Supporting Document(s) lipase 82 U/L 73-393 Lipase TRAM ([facility]) ID Date Data Source [id number] 07/16/2020 01:49:00 PM EDT [facility]) Name Value Range Interpretation Code Description Data Libia rce(s) Supporting Document(s) AST/SGOT 7 U/L 7-37 AST/SGOT TRAM ([facility]) ALT/SGPT 15 U/L 12-78 ALT/SGPT EST[place] ([facility]) alkaline phosphatase 66 U/L 45-117 Alkaline Phosph atase [place] ([facility]) bilirubin,total 0.7 mg/dL 0.2-1.0 Bilirubin,total ATHE ([facility]) bilirubin,direct 0.1 mg/dL 0.0-0.2 Bilirubin,direct AT [facility]) total protein 7.6 gm/dL 6.4-8.2 Total Protein TRAM ( [facility]) albumin/globulin ratio 1.2-2.2 Albumin/globu dyana Ratio ESTHELA ([facility]) albumin 4.4 gm/dL 3.2-5.2 Albumin [place] ([facility]) ID Date Data Source [id number] 07/16/2020 01:49:00 PM EDT [place] ([facility]) Name Value Range Interpretation Code Description Data Libia rce(s) Supporting Document(s) white blood count 7.3 10 4.0-10.0 White Blood Count EST[place]LA ([facility]) red blood count 5.13 10 4.00-5.40 Red Blood Count ATHE ([facility]) hemoglobin 15.1 g/dL 12.0-15.5 Hemoglobin ESTHELA ([facility]) hematocrit 45.7 % 36.0-47.0 Hematocrit EST[place] ([facility]) mean corpuscular volume 89.1 fL 80.0-96.0 Mean Corpusc ular Volume EST[place]LA ([facility]) mean corpuscular hemoglobin 29.4 pg 27.0-33.0 Mean Cor puscular Hemoglobin EST[place] ([facility]) mean corpuscular HGB conc 33.0 g/dL 32.0-36.5 Mean Corpu scular HGB Conc EST[place] ([facility]) platelet count, automated 301 10 150-450 Platelet C ount, Automated EST[place] ([facility]) red cell distribution width 13.9 % 11.5-14.5 Red Cell Distribution Width ESTHELA ([facility]) neutrophils % 65.2 % 36.0-66.0 Neutrophils % ESTHELA ( [facility]) lymph % 23.7 % 24.0-44.0 Below low normal Lymph % ESTHELA ( [facility]) eos % 3.4 % 0.0-3.0 Above high normal Eos % ESTHELA ([facility]) mono % 6.7 % 2.0-8.0 [place] % ESTHELA ([facility]) baso % 0.7 % 0.0-1.0 Baso % ESTHELA ([facility]) nucleated red blood cell % 0.0 % 0-0 Nucleated Red Blood Cell % ESTHELA ([facility]) immature granulocyte % 0.3 % 0-3.0 Immature Gran ulocyte % ESTHELA ([facility]) lymph # 1.7 10 1.5-5.0 Lymph # ESTHELA ([facility]) mono # 0.5 10 0.0-0.8 [place] # TRAM ([facility]) neutrophils # 4.8 10 1.5-8.5 Neutrophils # ESTHELA ( [facility]) baso # 0.1 10 0.0-0.2 Baso # TRAM ([facility]) eos # 0.3 10 0.0-0.5 Eos # TRAM ([facility]) ID Date Data Source [id number] 07/16/2020 01:49:00 PM EDT TRAM ([facility]) Name Value Range Interpretation Code Description Data Libia rce(s) Supporting Document(s) chlamydia DNA amplification negative negative Chlamydi a DNA Amplification TRAM ([facility]) GC DNA amplification negative negative GC DNA Amplific ation TRAM ([facility]) trichomonas vaginalis (amp) not detected negative Tricho monas Vaginalis (Amp) TRAM ([facility]) ID Date Data Source [id number] 07/16/2020 01:49:00 PM EDT [facility]) Name Value Range Interpretation Code Description Data Libia rce(s) Supporting Document(s) blood urea nitrogen 15 mg/dL 7-18 Blood Urea Nitro gen TRAM ([facility]) sodium level 140 mEq/L 136-145 Sodium Level TRAM ([facility]) glucose, fasting 91 mg/dL 70-100 Glucose, Fasting AT [facility] ([facility]) creatinine for GFR 0.79 mg/dL 0.55-1.30 Creatinine for GF R TRAM ([facility]) carbon dioxide level 26 mEq/L 21-32 Carbon Dioxide Level TRAM ([facility]) chloride level 106 mEq/L 98-107 Chloride Level EST[place] ([facility]) potassium serum 4.0 mEq/L 3.5-5.1 Potassium Serum ATHE ([facility]) calcium level 10.0 mg/dL 8.5-10.1 Calcium Level ESTHELA ( [facility]) anion gap 8 mEq/L 8-16 Anion Gap [place] ([facility]) ID Date Data Source [id number] 07/16/2020 01:49:00 PM EDT [place] ([facility]) Name Value Range Interpretation Code Description Data Libia rce(s) Supporting Document(s) lipase 82 U/L 73-393 Lipase [place] ([facility]) ID Date Data Source [id number] 07/16/2020 01:49:00 PM EDT [place] ([facility]) Name Value Range Interpretation Code Description Data Libia rce(s) Supporting Document(s) AST/SGOT 7 U/L 7-37 AST/SGOT [place] ([facility]) alkaline phosphatase 66 U/L 45-117 Alkaline Phosph atase [place] ([facility]) bilirubin,total 0.7 mg/dL 0.2-1.0 Bilirubin,total ATHE NA ([facility]) ALT/SGPT 15 U/L 12-78 ALT/SGPT [place] ([facility]) bilirubin,direct 0.1 mg/dL 0.0-0.2 Bilirubin,direct AT AMY ([facility]) albumin 4.4 gm/dL 3.2-5.2 Albumin [place] ([facility]) total protein 7.6 gm/dL 6.4-8.2 Total Protein EST[place] ( [facility]) albumin/globulin ratio 1.2-2.2 Albumin/globu dyana Ratio EST[place] ([facility]) ID Date Data Source [id number] 07/16/2020 01:49:00 PM EDT [place] ([facility]) Name Value Range Interpretation Code Description Data Libia rce(s) Supporting Document(s) white blood count 7.3 10 4.0-10.0 White Blood Count [place] ([facility]) red blood count 5.13 10 4.00-5.40 Red Blood Count ATHE NA ([facility]) hemoglobin 15.1 g/dL 12.0-15.5 Hemoglobin EST[place] ([facility]) hematocrit 45.7 % 36.0-47.0 Hematocrit [place] ([facility]) mean corpuscular volume 89.1 fL 80.0-96.0 Mean Corpusc ular Volume EST[place] ([facility]) mean corpuscular HGB conc 33.0 g/dL 32.0-36.5 Mean Corpu scular HGB Conc [place] ([facility]) mean corpuscular hemoglobin 29.4 pg 27.0-33.0 Mean Cor puscular Hemoglobin [place] ([facility]) platelet count, automated 301 10 150-450 Platelet C ount, Automated [place] ([facility]) red cell distribution width 13.9 % 11.5-14.5 Red Cell Distribution Width [place] ([facility]) lymph % 23.7 % 24.0-44.0 Below low normal Lymph % TRAM ( [facility]) neutrophils % 65.2 % 36.0-66.0 Neutrophils % EST[place]LA ( [facility]) mono % 6.7 % 2.0-8.0 [place] % [place] ([facility]) baso % 0.7 % 0.0-1.0 Baso % [place] ([facility]) eos % 3.4 % 0.0-3.0 Above high normal Eos % EST[place] ([facility]) nucleated red blood cell % 0.0 % 0-0 Nucleated Red Blood Cell % TRAM ([facility]) immature granulocyte % 0.3 % 0-3.0 Immature Gran ulocyte % EST[place] ([facility]) neutrophils # 4.8 10 1.5-8.5 Neutrophils # ESTHELA ( [facility]) lymph # 1.7 10 1.5-5.0 Lymph # EST[place] ([facility]) mono # 0.5 10 0.0-0.8 [place] # EST[place]LA ([facility]) baso # 0.1 10 0.0-0.2 Baso # EST[place] ([facility]) eos # 0.3 10 0.0-0.5 Eos # [place] ([facility]) ID Date Data Source [id number] 07/16/2020 01:49:00 PM EDT TRAM ([facility]) Name Value Range Interpretation Code Description Data Libia rce(s) Supporting Document(s) GC DNA amplification negative negative GC DNA Amplific ation TRAM ([facility]) chlamydia DNA amplification negative negative Chlamydi a DNA Amplification TRAM ([facility]) trichomonas vaginalis (amp) not detected negative Tricho monas Vaginalis (Amp) TRAM ([facility]) ID Date Data Source [id number] 07/16/2020 01:49:00 PM EDT TRAM ([facility]) Name Value Range Interpretation Code Description Data Libia rce(s) Supporting Document(s) glucose, fasting 91 mg/dL 70-100 Glucose, Fasting AT [facility]) blood urea nitrogen 15 mg/dL 7-18 Blood Urea Nitro gen [place] ([facility]) sodium level 140 mEq/L 136-145 Sodium Level EST[place] ([facility]) creatinine for GFR 0.79 mg/dL 0.55-1.30 Creatinine for GF R [place] ([facility]) potassium serum 4.0 mEq/L 3.5-5.1 Potassium Serum ATH NA ([facility]) carbon dioxide level 26 mEq/L 21-32 Carbon Dioxide Level EST[place]AL ([facility]) chloride level 106 mEq/L 98-107 Chloride Level TRAM ([facility]) calcium level 10.0 mg/dL 8.5-10.1 Calcium Level TRAM ( [facility]) anion gap 8 mEq/L 8-16 Anion Gap TRAM ([facility]) ID Date Data Source [id number] 07/16/2020 01:49:00 PM EDT [place] ([facility]) Name Value Range Interpretation Code Description Data Libia rce(s) Supporting Document(s) lipase 82 U/L 73-393 Lipase [place] ([facility]) ID Date Data Source [id number] 07/16/2020 01:49:00 PM EDT [place] ([facility]) Name Value Range Interpretation Code Description Data Libia rce(s) Supporting Document(s) ALT/SGPT 15 U/L 12-78 ALT/SGPT [place] ([facility]) AST/SGOT 7 U/L 7-37 AST/SGOT [place] ([facility]) alkaline phosphatase 66 U/L 45-117 Alkaline Phosph atase [place] ([facility]) bilirubin,direct 0.1 mg/dL 0.0-0.2 Bilirubin,direct AT AMY ([facility]) bilirubin,total 0.7 mg/dL 0.2-1.0 Bilirubin,total ATHE ([facility]) total protein 7.6 gm/dL 6.4-8.2 Total Protein EST[place] ( [facility]) albumin 4.4 gm/dL 3.2-5.2 Albumin [place] ([facility]) albumin/globulin ratio 1.2-2.2 Albumin/globu dyana Ratio EST[place] ([facility]) ID Date Data Source [id number] 07/16/2020 01:49:00 PM EDT [place] ([facility]) Name Value Range Interpretation Code Description Data Libia rce(s) Supporting Document(s) red blood count 5.13 10 4.00-5.40 Red Blood Count ATHE NA ([facility]) white blood count 7.3 10 4.0-10.0 White Blood Count EST[place] ([facility]) hematocrit 45.7 % 36.0-47.0 Hematocrit [place] ([facility]) hemoglobin 15.1 g/dL 12.0-15.5 Hemoglobin [place] ([facility]) mean corpuscular hemoglobin 29.4 pg 27.0-33.0 Mean Cor puscular Hemoglobin [place] ([facility]) mean corpuscular HGB conc 33.0 g/dL 32.0-36.5 Mean Corpu scular HGB Conc EST[place] ([facility]) mean corpuscular volume 89.1 fL 80.0-96.0 Mean Corpusc ular Volume [place] ([facility]) red cell distribution width 13.9 % 11.5-14.5 Red Cell Distribution Width [place] ([facility]) platelet count, automated 301 10 150-450 Platelet C ount, Automated [place] ([facility]) neutrophils % 65.2 % 36.0-66.0 Neutrophils % EST[place] ( [facility]) lymph % 23.7 % 24.0-44.0 Below low normal Lymph % TRAM ( [facility]) eos % 3.4 % 0.0-3.0 Above high normal Eos % EST[place] ([facility]) baso % 0.7 % 0.0-1.0 Baso % [place] ([facility]) mono % 6.7 % 2.0-8.0 [place] % TRAM ([facility]) nucleated red blood cell % 0.0 % 0-0 Nucleated Red Blood Cell % EST[place] ([facility]) immature granulocyte % 0.3 % 0-3.0 Immature Gran ulocyte % EST[place] ([facility]) lymph # 1.7 10 1.5-5.0 Lymph # [place] ([facility]) neutrophils # 4.8 10 1.5-8.5 Neutrophils # EST[place]LA ( [facility]) mono # 0.5 10 0.0-0.8 [place] # ESTHELA ([facility]) baso # 0.1 10 0.0-0.2 Baso # [place] ([facility]) eos # 0.3 10 0.0-0.5 Eos # [place] ([facility]) ID Date Data Source [id number] 07/08/2020 01:24:18 PM EDT NextGen ([facility]) Name Value Range Interpretation Code Description Data Libia rce(s) Supporting Document(s) NegativeLot: [id number]: 12/26/2021 High Sensitivity Urine Test NextGen ([facility]) ID Date Data Source [id number] 07/08/2020 12:00:00 AM EDT NextGen ([facility]) Name Value Range Interpretation Code Description Data Libia rce(s) Supporting Document(s) Negative Normal (applies to non-numeric resul ts) Urine CT/GC Combo - GC NextGen ([facility]) : No Performed by: CDD ([id number]) ID Date Data Source [id number] 07/08/2020 12:00:00 AM EDT NextGen ([facility]) Name Value Range Interpretation Code Description Data Libia rce(s) Supporting Document(s) Negative Normal (applies to non-numeric resul ts) Urine CT/GC Combo - CT NextGen ([facility]) ID Date Data Source [id number] 06/07/2020 12:00:00 AM EST [facility] Name Value Range Interpretation Code Description Data Libia rce(s) Supporting Document(s) SARS-CoV2 Rapid Antigen Negative [facility] This lab was ordered by [facility] and reported by [facility]. ID Date Data Source [id number] 05/30/2020 12:00:00 AM EST [facility] Name Value Range Interpretation Code Description Data Libia rce(s) Supporting Document(s) Carestart Rapid COVID Antigen Test Positive [facility] This lab was reported by [facility]. ID Date Data Source [id number] 04/09/2020 02:41:52 PM EST NextGen ([facility]) Name Value Range Interpretation Code Description Data Libia rce(s) Supporting Document(s) NegativeLot: [id number]: 06/07/2021 High Sensitivity Urine Test NextGen ([facility]) ID Date Data Source [id number] 04/09/2020 12:00:00 AM EST NextGen ([facility]) Name Value Range Interpretation Code Description Data Libia rce(s) Supporting Document(s) YAYA Non-reactive Normal (applies to non-numeric results) Syphilis NextGen ([facility]) Infection with T. pallidum (cause of syp hilis) unlikely (earlyprimary syphilis cannot be excluded). Requestadditional testing if syphilis is clinically suspected.YAYA: Chemiluminescence immunoassay: No Performed by: JAVID ([id number]) ID Date Data Source [id number] 04/09/2020 12:00:00 AM EST NextGen ([facility]) Name Value Range Interpretation Code Description Data Libia rce(s) Supporting Document(s) HIV-1/2 Non-reactive Normal (applies to n on-numeric results) HIV-1/HIV-2 Ag/Ab NextGen ([facility]) The HIV Antigen (Ag)/Antibody (Ab) Combo ChemiluminescentMicroparticle Immunoassay (CMIA) is used for the simultaneousdetection of both the HIV-1 p24 Antigen and Antibodyto HIV-1 and for the Antibody to HIV-2. Performed by: JAVID ([id number]) ID Date Data Source [id number] 03/09/2020 10:10:00 [place] [address] PROGRESS NOTENAME: COLIN DECKER ROOM#: [id number] OF : 2000 MR#: [id number] DATE: 03/08/20 OF SERVICE: 03/09/20UBJECTIVE: This patient presented with presyncope. She claims that she took a sleeping pill to relax sixhours before she came to the emergency room and then Flagyl also at 500 mg b.i.d. for a Chlamydia infectionof the vagina for which she got this medicine from [facility] 2 days ago. The patient was given [...] rce(s) Supporting Document(s) ID Date Data Source [id number] 03/10/2020 10:35:00 [place] [address] HISTORY AND PHYSICALNAME: COLIN DECKER ROOM#: [id number] OF : 2000 MR#: [id number] PHYS: Steven Olivares MD, PC DATE: 03/08/20CHIEF COMPLAINT: This 19-year-old white female was admitted with chest pain and near syncope.HISTORY OF PRESENT ILLNESS:This patient claims that she had been to [facility] ER 2 days ago and was given [...] Tone in the muscles was normal. [address] [place] [address] HISTORY AND PHYSICALNAME: COLIN DECKER ROOM#: [id number] OF : 2000 MR#: [id number] PHYS: Steven Olivares MD, PC DATE: 03/08/20IMPRESSION: [...] told to bring the medication she took [id number] for sleep and she refuses.DD: Steven Olivares MD, PC 03/09/20 08:35DT: NARCISO 03/09/20 22:43DS: Steven Olivares MD, PC 03/14/20 08:56 2 Name Value Range Interpretation Code Description Data Libia rce(s) Supporting Document(s) ID Date Data Source [id number] 03/10/2020 10:50:00 [place] [address] DISCHARGE SUMMARYNAME: COLIN DECKER ROOM#: [id number] OF : 2000 MR#: [id number] PHYS: Steven Olivares MD, PC DATE: 03/08/20 DISCHARGED: 03/10/20REASON FOR ADMISSION: This 19-year-old white female was admitted with chest pain and nearsyncope.HISTORY OF PRESENT ILLNESS:This patient was at [facility] ER 2 days ago and was given Flagyl 500 mg b.i.d. for a Chlamydiavaginal infection. The patient claims that she had 2 episodes of dizziness and thought she was going to faint.She came to the ER and her heart rate was between 40-50 and so she was admitted for sick sinus syndromeand indio arrhythmia. She took a sleeping pill before she came in [id number]-saiybyy. She does not know thename and she [...] for a UTI, which she had a [facility] ER. We are getting records from [facility] and theyare not available at this time. [...] one week.FINAL DIAGNOSES:1. Presyncope2. Sinus bradycardia [address] [place] [address] DISCHARGE SUMMARYNAME: COLIN DECKER ROOM#: [id number] OF : 2000 MR#: [id number] PHYS: Steven Olivares MD, PC DATE: 03/08/20 DISCHARGED: 03/10/20 3. Anxiety neurosis 4. DehydrationDD: Steven Olivares MD, PC 03/10/20 10:36DT: DMZ 03/10/20 22:35DS: Steven Olivares MD, PC 03/14/20 08:56 2 Name Value Range Interpretation Code Description Data Libia e(s) Supporting Document(s) ID Date Data Source [id number] 03/11/2020 09:39:00 AM EST [facility] [address] [place] [address] PHONE: [phone] FAX: [phone] Name .................. : COLIN DECKER Acct Number.................. : [id number] ROOM. ................. : CCU2 MR Number ................... : [id number] Stay type ............. : O/P Discharge Date......... ... : Admit Date ......... : 03/08/20 Admit Phys .................... : TABITHA REGINA Date of ....... : 2000 Family Phys ................... : INDIRAO LEYDA Phone .................. : [phone] Age ................................ : 19 Film# .................. .:[id number] Sex ................................. : F Unsigned transcriptions are preliminary reports and do not represent a medical or legal document CT HEAD W/O CONTRAST [id number] COMPLETE:03/08/20 22:22 KJE 54 Reason(s): Syncope CT [...] By Vance Chung M.D. , 03/11/20 09:39, [facility] Transcribe Initials: DZ , Transcribe Date: 03/08/20 23:46, Dictation Date: Copy for: KAMRYN Valles via fax Copy for: EMERGENCY DEPT via modem Copy for: 710 MED REC DISCHARGED Page 1 of 1 Name Value Range Interpretation Code Description Data Libia rce(s) Supporting Document(s) ID Date Data Source [id number] 03/11/2020 09:39:00 [place] [address] PHONE: [phone] FAX: [phone] Name .................. : COLIN DECKER Acct Number.................. : [id number] ROOM. ................. : CCU2 MR Number ................... : [id number] Stay type ............. : O/P Discharge Date......... ... : Admit Date ......... : 03/08/20 Admit Phys .................... : TABITHA REGINA Date of ....... : 2000 Family Phys ................... : KAMRYN CRABTREE Phone .................. : [phone] Age ................................ : 19 Film# .................. .:[id number] Sex ................................. : F Unsigned transcriptions are preliminary reports and do not represent a medical or legal document CHEST 2 VIEWS [id number] COMPLETE:03/08/20 22:22 KJE 51 Reason(s): Chest Pain CHEST X-RAY: 2-VIEWS INDICATION: Chest pain. FINDINGS: The cardiac and mediastinal silhouettes appear normal and the lungs are clear. The bones and soft tissues are normal. The upper abdomen is unremarkable. IMPRESSION: No acute disease identifiable. Electronically Reviewed and Signed By Vance Chung M.D. , 03/11/20 09:39, [facility] Transcribe Initials: DZ , Transcribe Date: 03/08/20 23:45, Dictation Date: Copy for: KAMRYN Valles via fax Copy for: EMERGENCY DEPT via modem Copy for: 710 MED REC DISCHARGED Page 1 of 1 Name Value Range Interpretation Code Description Data Libia rce(s) Supporting Document(s) ID Date Data Source [id number] 03/15/2020 05:16:00 PM EST [facility] Name Value Range Interpretation Code Description Data Libia rce(s) Supporting Document(s) CULTURE URINE [facility] _CULTURE URINE_$$[id number]$$701498$$028079$$788505$$180135$$950365$$958175$$707227$$289744$$ 590182$$074115$$935263$$106333$$761214$$569693$$715062$$811918$$062676$$162886$$ 239717$$567642$$391181$$955526$$032944$$775233$$298810$$[id number] -- Continued on next page --Patient: COLIN DECKER Order: [id number] Page 2Culture: CULTURE URINE Status: Final ==== -- Continued on next page --Patient: COLIN DECKER Order: [id number] Page 2Culture: CULTURE URINE Status: Prelim =====$$[id number]$$[id number] DATE/TIME: 03/15/2020 16:06Culture: CULTURE URINE Status: FinalUrine Culture,Comprehensive: P1No growth in 36 - 48 hours. Previous result entered on 03/13/2020 06:40 ET No growth after 18-24 hours.P1 Test performed by: [facility] MAC #: [id number] [address] [place] [address] [id number] [facility] [address]Medical Director : Jason Vann MD NPI #:Lab Di shireen : 03/13/20.0754.XMT.SENT REF 03/15/20.1716.XMT.SENT REF 03/15/20.1716.DW .to TABITHA TAPIA via modem ID Date Data Source [id number] 03/09/2020 03:40:00 PM EST [facility] Name Value Range Interpretation Code Description Data Libia rce(s) Supporting Document(s) TROPONIN T <0.01 NG/ML 0.00 - 0.10 [facility]ital TROPONIN T0.1 ng/ml Recommended as the c linical threshold value forTroponin T. ID Date Data Source [id number] 03/09/2020 10:21:00 AM [facility] Name Value Range Interpretation Code Description Data Libia rce(s) Supporting Document(s) TROPONIN T <0.01 NG/ML 0.00 - 0.10 [facility] TROPONIN T0.1 ng/ml Recommended as the c linical threshold value forTroponin T. ID Date Data Source [id number] 03/09/2020 10:29:00 AM [facility] Value Range Interpretation Code Description Data Libia rce(s) Supporting Document(s) Thyrotropin [Units/volume] in Serum or Plasma by Detec tion limit <= 0.05 mIU/L 2.69 uIU/mL 0.47 - 5.01 [facility] ID Date Data Source [id number] 03/09/2020 10:46:00 AM [facility] Value Range Interpretation Code Description Data Libia rce(s) Supporting Document(s) C reactive protein [Mass/volume] in Serum or Plasma by High sensitivity method 0.23 MG/L 1.00 - 3.00 L [facility] HS-CRP CUT-OFF: RELATIVE RISK: <1.0 mg/L Low 1.0 - 3.0 mg/L Average >3.0 mg/L High Optimally, the average of HS-CRP results repeated two weeks apart should be used for risk assessment. ID Date Data Source [id number] 03/09/2020 12:19:00 PM [facility] Value Range Interpretation Code Description Data Libia rce(s) Supporting Document(s) Thyroxine (T4) [Mass/volume] in Serum or Plasma 7.3 UG/DL 4.5 - 12.5 [facility] ID Date Data Source [id number] 03/09/2020 12:19:00 PM [facility] Value Range Interpretation Code Description Data Libia rce(s) Supporting Document(s) Cobalamin (Vitamin B12) [Mass/volume] in Serum or Plasma 353 PG/ML 232 - 1245 [facility] ID Date Data Source [id number] 03/09/2020 12:40:00 PM [facility] Name Value Range Interpretation Code Description Data Libia rce(s) Supporting Document(s) Iron [Mass/volume] in Serum or Plasma 35 UG/DL 42 - 135 L [facility] ID Date Data Source [id number] 03/11/2020 06:20:00 PM [facility] Name Value Range Interpretation Code Description Data Libia rce(s) Supporting Document(s) Nuclear Ab [Titer] in Serum by Immunofluorescence Negative [facility] Negative <1:80 Borderline 1:80 Positive >1:80 ID Date Data Source [id number] 03/09/2020 09:26:00 [place] [address] RESPIRATORY CARE REPORT ==== ---------NAME------- NUMBER SEX AGE ADMIT DISC. XRAY# F/C ERICKAGBMAHI DECKER [id number] 03/08/[id number] X6B O/P DATE OF : 2000 M/R# [id number] #: [phone] CCU2 LOCATION[place] [id number] COMPL ETE:03/09/20 08:07 [place] [id number] PHYSICIAN: TABITHA TAPIA Name Value Range Interpretation Code Description Data Libia rce(s) Supporting Document(s) ID Date Data Source [id number] 03/09/2020 09:25:00 [place] [address] RESPIRATORY CARE REPORT ==== ---------NAME------- NUMBER SEX AGE ADMIT DISC. XRAY# F/C LENORA DECKER [id number] F 03/08/[id number] X6B O/P DATE OF : 2000 M/R# [id number] PH#: [phone] CCU2 LOCATION: EMERGENCY DEPT EKG [id number] COMPL ETE:03/09/20 09:24 [place] [id number] PHYSICIAN: TABITHA TAPIA Name Value Range Interpretation Code Description Data Libia rce(s) Supporting Document(s) ID Date Data Source [id number] 03/09/2020 09:24:00 [place] [address] RESPIRATORY CARE REPORT ==== ---------NAME------- NUMBER SEX AGE ADMIT DISC. XRAY# F/C LENORA DECKER [id number] F 03/08/[id number] X6B O/P DATE OF : 2000 /R# [id number] PH#: [phone] CCU2 LOCATION: EMERGENCY DEPT EKG [id number] COMPL ETE:03/09/20 08:04 [place] [id number] PHYSICIAN: TABITHA GORDON Name Value Range Interpretation Code Description Data Libia rce(s) Supporting Document(s) ID Date Data Source [id number] 03/08/2020 08:20:00 PM [facility] 1 OrderSheet [facility] Emergency Department [address] [place] [address] Phone #: ext- [phone] 03/08/2020 20:07 Patient: SHELLI SHAW Sex: F : 2000 Age: 19yWEIGHT:58.0 kgALLERGIES: No Known Drug AllergyCHIEF COMPLAINT: chest painDIAGNOSIS: Sinus bradycardia, SyncopeLAB ORDERSOrder Description Priority Entered Acknowledged InitialedUrinalysis (Clean STAT 21:02 03/08/2020 Ack'd: 21:35 Giuliana 21:42 Giuliana Marie) Juan Coon RChiaraNChiara Physician;Urine Drug Screen STAT 21:02 03/08/2020 Ack'd: 21:35 Giuliana 21:42 Giuliana Coon R.NChiara Physician;Troponin-T STAT 21:02 03/08/2020 Ack'd: 21:35 Giuliana 21:42 Giuliana Coon R.NChiara Physician;CBC w Diff STAT 21:02 03/08/2020 Ack'd: 21:35 Giuliana 21:42 Giuliana Coon R.NChiara Physician;CMP STAT 21:02 03/08/2020 Ack'd: 21:35 Giuliana 21:42 Giuliana Coon R.NChiara Physician;D-Dimer STAT 21:02 03/08/2020 Ack'd: 21:35 Giuliana 21:42 Giuliana Coon R.NChiara Physician;HCG Serum Qual STAT 21:02 03/08/2020 Ack'd: 21:35 Giuliana 21:42 Giuliana Coon R.NChiara Physician;Lactic Acid STAT 21:02 03/08/2020 Ack'd: 21:35 Giuliana 21:42 Giuliana Coon R.N. Physician;Lipase STAT 21:02 03/08/2020 Ack'd: 21:35 Giuliana 21:42 Giuliana Coon R.N. Physician;Rapid Strep Screen STAT 21:02 03/08/2020 Ack'd: 21:35 Giuliana 21:44 Giuliana Coon R.N. Physician;Lyme Disease STAT 22:37 03/08/2020 02:20 03/09/2020 2 OrderSheet [facility] Emergency Department [address] [place] [address] Phone #: ext- [phone] 03/08/2020 20:07 Patient: [...] mL 21:07 03/08/2020 Ack'd: 21:34 Giuliana 22:09 [place],Bolus: : Bolus 1000 Juan Cuba R.N.mL (X1) Physician;GENERAL ORDERSOrder Description Priority Entered Acknowledged InitialedCardiac Monitor 21:02 03/08/2020 21:34 Giuliana Dorsey(continuous) Juan Coon R.N. Physician;EKG 21:02 03/08/2020 21:34 Giuliana Coon R.N. Physician;Pulse oximeter 21:02 03/08/2020 21:34 Giuliana Dorsey(Continuous) Juan Coon R.N. Physician;Saline Lock 21:02 03/08/2020 Ack'd: 21:35 Giuliana 21:42 Giuliana Coon R.N. Physician;[Electronically signed by Giuliana Shankar R.N. (02:20 03/09/2020)] 3 OrderSheet [facility] Emergency Department [address] [place] [address] Phone #: ext- [phone] 03/08/2020 20:07 Patient: SHELLI SHAW Sex: F : 2000 Age: 19y[Electronically signed by Juan Waterman Physician (05:44 03/09/2020)][Electronically locked by Giuliana Shankar R.N. (02:20 03/09/2020)] Name Value Range Interpretation Code Description Data Libia rce(s) Supporting Document(s) ID Date Data Source [id number] 03/08/2020 08:20:00 PM [facility] 1 Medication Reconciliation Report [facility] Emergency Department [address] [place] [address] Phone #: ext- [phone] 03/08/2020 20:07 Patient: [...] rce(s) Supporting Document(s) ID Date Data Source [id number] 03/08/2020 08:20:00 PM [facility] 1 Medication Administration Record [facility] Emergency Department [address] [place] [address] Phone #: ext- [phone] 03/08/2020 20:07 Patient: SHELLI SHAW Sex: F : 2000 Age: 19yWeight: 58.0 kgHeight/Length: 64 inBMI: 22ALLERGIES: No Known Drug Allergy Date/Time Medication Administered Medication OrderedStart NS [IV] NS IV 1000 mL Bolus: : Bolus [id number] 03/08/2020 Dose: IV Fluids mL (X1)[place], [place], R.N. Rate: 1000 mL/hr over 60 minute(s)---- Dispensed: 1000 mL bagContinued Upon Admission Site: #1 left AC23:00 03/08/2020Giuliana Coon R.N. Name Value Range Interpretation Code Description Data Libia rce(s) Supporting Document(s) ID Date Data Source [id number] 03/08/2020 08:20:00 PM [place] [address] General Instructions [facility] Emergency Department [address] [place] [address] Phone #: ext- [phone] 03/08/2020 20:07 Patient: SHELLI SHAW Sex: F : 2000 Age: 19yVasovagal syncope(Symptomatic bradycardia).Sinus bradycardia (Symptomatic).(Electronically signed by Juan Waterman, Physician 03/09/2020 05:44) Name Value Range Interpretation Code Description Data Libia rce(s) Supporting Document(s) ID Date Data Source [id number] 03/08/2020 08:20:00 PM [place] [address] Clinical Report - Nurses [facility] Emergency Department [address] [place] [address] Phone #: ext- [phone] 03/08/2020 20:07 Patient: [...] suspected or confirmed signs of infection present.--20:16 03/08/20 Giuliana Coon R.N.20:12 03/08/20. BP: 112/46. MAP: 68. HR: 49. RR: 18. O2 saturation: 100%. Temp: 97.3 F. Pain levelnow: 8/10. --20:16 03/08/20 Giuliana Coon R.N.Acuity: LEVEL 2. [...] orkilling yourself?". 2 Clinical Report - Nurses [facility] Emergency Department [address] [place] [address] Phone #: ext- [phone] 03/08/2020 20:07 Patient: [...] of bedon. --20:26 03/08/20 Giuliana Coon R.N. 20:03/08/20. BP: 108/61. MAP: 76. HR: 42. RR: 16. O2 saturation: 100%. --20:26 03/08/20 Giuliana Coon R.N. Patient transported to radiology and CT by wheelchair with tech. --21:52 03/08/20 [place]re[place] Elise R.N. 22:03/08/2020 Site #1 started via IV in the left antecubital space with an 20g angiocath; one attempt. --22:03/08/20 [place] Elise R.N. 22:03/08/2020 Started bag #1 1000 mL IV Fluids NS; at 1000 mL/hr over 60 minute(s) via site #1 --22:03/08/20 [place] Elise R.N. 22:09 12/11/20. BP: 100/78. MAP: 85. HR: 42. RR: [...] Coon R.N. 3 Clinical Report - Nurses [facility] Emergency Department [address] [place] [address] Phone #: ext- [phone] 03/08/2020 20:07 Patient: [...] and transported with the patient. --23:16 03/08/20 iGuliana Coon R.N. 23:00 03/08/20. BP: 116/59. MAP: 78. HR: 43. RR: 16. O2 saturation: 98%. Temp: 99.2 F. Pain level now: 08/05. --23:16 03/08/20 Giuliana Coon R.N.Locked/Released at 03/09/2020 02:20 by Giuliana Coon R.N. Name Value Range Interpretation Code Description Data Libia rce(s) Supporting Document(s) ID Date Data Source [id number] 03/08/2020 08:20:00 PM EST [facility] 1 Clinical Report - Physicians/Mid Levels [facility] Emergency Department [address] [place] [address] Phone #: ext- [phone] 03/08/2020 20:07 Patient: [...] in the emergency department. ( Seen at [facility] last week - Dxd. with Chlamydia and [...] See nurses notes. Other disease. Chlamydia urethritis (recent)[id number] substance abuse.SOCIAL HISTORYLight tobacco smoker (cigarette)- less than 1/2 a pack per day. Occasional drug use: marijuana. Noalcohol use.ADDITIONAL NOTESThe nursing notes have been reviewed with agreement regarding the chief complaint, HPI, ROS, PMH andpatient medications and allergies.PHYSICAL EXAMVital Signs: 03/08/2020 20:12 BP: 112/46. MAP: 68. HR: 49. RR: 18. O2 saturation: 100%. Temp: 97.3 F. 2 Clinical Report - Physicians/Mid Levels [facility] Emergency Department [address] [place] [address] Phone #: ext- [phone] 03/08/2020 20:07 Patient: SHELLI SHAW Sex: F [...] Head W/O Cont: (SARAHI: 03/08/2020 21:32) ( Mscvd 03/08/2020 22:22) In Progress CT HEAD W/O CONTRAST Reason(s): Syncope TRANSPORTATION: S IV? O2? Oxygen?(No) Room: ED : HCG Pending CMTS: Near syncope Urinalysis: (SARAHI: 03/08/2020 21:00) ( [facility] Final results Test Result Flag [...] NONE Drug Screen-Urine: (SARAHI: 03/08/2020 21:00) ( IagRcvd 03/08/2020 21:24) Final results Test Result Flag Units (Reference) 3 Clinical Report - Physicians/Mid Levels [facility] Emergency Department [address] [place] [address] Phone #: ext- [phone] 03/08/2020 20:07 Patient: SHELLI SHAW Sex: F [...] PRESUMPTIVE POSITIVE CONFIRMATION WILL BE PERFORMED AT [facility].Troponin-T: (SARAHI: 03/08/2020 21:10) ( [facility] 03/08/2020 21:50) Final results Test Result Flag Units (Reference) TROPONIN T <0.01 NG/ML (0.00 - 0.10) TROPONIN T0.1 ng/ml Recommended as the clinical threshold value forTroponin T.CBC w Diff: (SARAHI: 03/08/2020 21:10) ( [facility] 03/08/2020 21:30) Final results Test Result Flag [...] (Reference) 4 Clinical Report - Physicians/Mid Levels [facility] Emergen cy Department [address] [place] [address] Phone #: ext- [phone] 03/08/2020 20:07 Patient: [...] Male GFR Interprentation 20-49 yrs >60 mL/min Nqohkl19-47 yrs >56 mL/min Normal 60-69 yrs >49 mL/min Normal 70-79yrs>42 mL/min Normal 80 and above >35 mL/min Normal Female GFRInterpretation 20-39 yrs >60 mL/min Normal 40-49 yrs >58 mL/minNormal 50-59 yrs >51 mL/min Normal 60-69 yrs >45 mL/min Qngfpb49-13 yrs >39 mL/min Normal 80 and above [...] NEGATIVE (NORMAL: NEGAT { KIT LOT # [id number] ){ KIT EXP DATE01/01/21 ){ NV OCEDURAL CONTROL VALID)Lactic Acid: (SARAHI: 03/08/2020 21:10) ( [facility] [place] 21:34) Final results Test Result Flag Units (Reference) LACTIC ACID 0.8 MMOL/L (0.2 - 2.2)Lipase: (SARAHI: 03/08/2020 21:10) ( MsgRcvd 03/08/2020 21:50) Final results Test Result Flag Units (Reference) LIPASE 20 U/L (13 - 60)Rapid Strep Screen: (SARAHI: 03/08/2020 21:43) ( [facility] [place] 03/08/2020 22:05) Final results Test Result Flag Units (Reference) RAPID STREP NEGATIVE (NORMAL: NEGAT RAPID STREP REENTER NEGATIVE (NORMAL: NEGAT 5 Clinical Report - Physicians/Mid Levels [facility] Emergency Department [address] [place] [address] Phone #: ext- [phone] 03/08/2020 20:07 Patient: SHELLI SHAW Sex: F : 2000 Age: 19y { PROCEDURAL CONTROL VALID ){ KIT LOT # [id number] ){ KIT EXP DATE 07/07/21 )The Strep [...] Care: :Mar 08 2020. Patient is stable. 21:Mar 08 2020. Pt. in no pain now, [...] IMPRESSION 6 Clinical Report - Physicians/Mid Levels [facility] Emergency Department [address] [place] [address] Phone #: ext- [phone] 03/08/2020 20:07 Patient: SHELLI SHAW Sex: F : 2000 Age: 19y Vasovagal syncope(Symptomatic bradycardia). Sinus bradycardia (Symptomatic).(Electronically signed by Juan Waterman, Physician 03/09/2020 05:44) Name Value Range Interpretation Code Description Data Libia rce(s) Supporting Document(s) ID Date Data Source [id number] 03/09/2020 03:32:00 AM [facility] Name Value Range Interpretation Code Description Data Libia rce(s) Supporting Document(s) TROPONIN T <0.01 NG/ML 0.00 - 0.10 [facility] TROPONIN T0.1 ng/ml Recommended as the c linical threshold value forTroponin T. ID Date Data Source [id number] 03/08/2020 11:28:00 PM [facility] Name Value Range Interpretation Code Description Data Libia rce(s) Supporting Document(s) Thyrotropin [Units/volume] in Serum or Plasma by Detec tion limit <= 0.05 mIU/L 4.77 uIU/mL 0.47 - 5.01 [facility] ID Date Data Source [id number] 03/08/2020 11:28:00 PM [facility] Value Range Interpretation Code Description Data Libia rce(s) Supporting Document(s) Thyroxine (T4) [Mass/volume] in Serum or Plasma 7.3 UG/DL 4.5 - 12.5 [facility] ID Date Data Source [id number] 03/11/2020 08:30:00 PM [facility] Name Value Range Interpretation Code Description Data Libia rce(s) Supporting Document(s) Borrelia burgdorferi IgG+IgM Ab [Units/volume] in Serum <0.91 ISR 0. 00-0.90 [facility] Negative <0.91 Equivocal 0.91 - 1.09 Positive >1.09 Borrelia burgdorferi IgM Ab [Units/volume] in Serum by Immun oassay <0.80 index 0.00-0.79 [facility] Negative <0.80 Equivocal 0.80 - 1.19 Positive >1.19 IgM levels may peak at 3-6 weeks post infection, then gradually decline. ID Date Data Source [id number] 03/08/2020 10:04:00 PM [facility] Name Value Range Interpretation Code Description Data Libia rce(s) Supporting Document(s) RAPID STREP NEGATIVE NORMAL: NEGATIVE [facility] RAPID STREP REENTER NEGATIVE NORMAL: NEGATIVE [facility] { PROCEDURAL CONTROL VALID ){ KIT LOT # [id number] ){ KIT EXP DATE 07/07/21 )The Strep [...] basis for treatment. ID Date Data Source [id number] 03/08/2020 09:30:00 PM [facility] Name Value Range Interpretation Code Description Data Libia rce(s) Supporting Document(s) CBC W/AUTOMATED DIFF [facility] COMPLETE BLOOD COUNT Leukocytes [#/volume] in Blood by Automated count 7.0 10^3/uL 4.2 - 1 1.0 [facility] Erythrocytes [#/volume] in Blood by Automated count 3.90 10^6/uL 4. 20 - 5.40 L [facility] Hemoglobin [Mass/volume] in Blood 11.3 g/dL 12.0 - 16.0 L [facility] Hematocrit [Volume Fraction] of Blood by Automated count 34.5 % 3 7.0 - 47.0 L [facility] Erythrocyte mean corpuscular volume [Entitic volume] by Auto mated count 88.5 fL 81.0 - 101 [facility] Erythrocyte mean corpuscular hemoglobin [Entitic mass] by Automated count 29.0 pg 27.0 - 34.0 [facility] Erythrocyte mean corpuscular hemoglobin concentration [Mass/volume] by Automated count 32.8 g/dL 31.0 - 36.0 [facility] Erythrocyte distribution width [Ratio] by Automated count 13.8 % 11.5 - 14.5 [facility] Platelets [#/volume] in Blood by Automated count 214 10^3/uL 150 - 45 0 [facility] Platelet mean volume [Entitic volume] in Blood by Automated count 9.6 fL 7.4 - 10.4 [facility] Neutrophils/100 leukocytes in Blood by Automated count 61.4 % 37. 0 - 80.0 [facility] Lymphocytes/100 leukocytes in Blood by Manual count 30.0 % 25.0 - 40.0 [facility] Monocytes/100 leukocytes in Blood by Automated count 5.3 % 3.0 - 8.0 [facility] Eosinophils/100 leukocytes in Blood by Automated count 2.6 % 0.0 - 7.0 [facility] Basophils/100 leukocytes in Blood by Automated count 0.4 % 0.0 - 2.5 [facility] %IG 0.3 % 0.0 - 0.0 [facility] %NRBC 0.0 % 0.0 - 0.0 [facility] al Neutrophils [#/volume] in Blood by Automated count 4.31 10^3/uL 2.00 - 6.90 [facility] Lymphocytes [#/volume] in Blood by Automated count 2.10 10^3/uL 0.60 - 3.40 [facility] Monocytes [#/volume] in Blood by Automated count 0.37 10^3/uL 0.00 - 0.90 [facility] Eosinophils [#/volume] in Blood by Automated count 0.18 10^3/uL 0.00 - 0.70 [facility] Basophils [#/volume] in Blood by Automated count 0.03 10^3/uL 0.00 - 0.20 [facility] #IG 0.02 10^3/uL 0.00 - 0.10 [facility] #NRBC 0.00 10^3/uL 0.00 - 0.00 [facility] MANUAL DIFF NOT INDICATED [facility] RBC MORPH NOT INDICATED [facility] ID Date Data Source [id number] 03/08/2020 09:33:00 PM [facility] Name Value Range Interpretation Code Description Data Libia rce(s) Supporting Document(s) Lactate [Moles/volume] in Serum or Plasma 0.8 MMOL/L 0.2 - 2.2 [facility] ID Date Data Source [id number] 03/08/2020 09:38:00 PM [facility] Name Value Range Interpretation Code Description Data Libia rce(s) Supporting Document(s) HCG SERUM QUAL NEGATIVE NORMAL: NEGATIVE [facility] HCG SERUM QL REENTER NEGATIVE NORMAL: NEGATIVE [facility] { KIT LOT # [id number] ){ KIT EXP DATE 01/01/21 ){ PROCEDURAL CONTROL VALID ) ID Date Data Source [id number] 03/08/2020 09:44:00 PM [facility] Name Value Range Interpretation Code Description Data Libia rce(s) Supporting Document(s) Fibrin D-dimer FEU [Mass/volume] in Platelet poor plasma <0. 27 ug/mL 0.27 - 0.50 [facility] ID Date Data Source [id number] 03/08/2020 09:50:00 PM [facility] Name Value Range Interpretation Code Description Data Libia rce(s) Supporting Document(s) COMPREHENSIVE METABOLIC PANEL [facility] COMPREHENSIVE METABOLIC PANEL Sodium [Moles/volume] in Serum or Plasma 135 mEq/L 134 - 153 [facility] Potassium [Moles/volume] in Serum or Plasma 4.2 mEq/L 3.6 - 5.0 [facility] Chloride [Moles/volume] in Serum or Plasma 100 mEq/L 98 - 107 [facility] Carbon dioxide, total [Moles/volume] in Serum or Plasma 29 MEQ/L 22 - 30 [facility] Glucose [Mass/volume] in Serum or Plasma 105 MG/DL 65 - 110 [facility] BUN 8 MG/DL 7 - 21 [facility] Creatinine [Mass/volume] in Serum or Plasma 0.7 MG/DL 0.7 - 1.5 [facility] BUN/CREAT 11 8 - 27 [facility] Protein [Mass/volume] in Serum or Plasma 5.6 G/DL 6.3 - 8.2 L [facility] Albumin [Mass/volume] in Serum or Plasma 4.2 G/DL 3.9 - 5.0 [facility] Globulin [Mass/volume] in Serum by calculation 1.4 GM/DL 2.4 - 3.2 L [facility] A/G RATIO 3.0 0.8 - 2.0 H [facility] Calcium [Mass/volume] in Serum or Plasma 8.9 MG/DL 8.4 - 10.2 [facility] Bilirubin.total [Mass/volume] in Serum or Plasma <0.7 MG/DL 0.2 - 1.3 [facility] Alkaline phosphatase [Enzymatic activity/volume] in Serum or Plasma 60 U/L 38 - 126 [facility] Aspartate aminotransferase [Enzymatic activity/volume] in Se rum or Plasma 8 U/L 5 - 40 [facility] Alanine aminotransferase [Enzymatic activity/volume] in Seru m or Plasma 6 U/L 7 - 56 L [facility] Anion gap 3 in Serum or Plasma 6.0 mmol/L 8.0 - 16.0 L [facility] AGE 19 yrs [facility] al NON-AA GFR >60 mL/min [facility] ital AFR AMER GFR >60 mL/min [facility] Male GFR In terprentation 20-49 [...] >32 mL/min Normal ID Date Data Source [id number] 03/08/2020 09:50:00 PM [facility] Name Value Range Interpretation Code Description Data Libia rce(s) Supporting Document(s) Lipase [Enzymatic activity/volume] in Serum or Plasma 20 U/L 13 - 60 [facility] ID Date Data Source [id number] 03/08/2020 09:50:00 PM [facility] Name Value Range Interpretation Code Description Data Libia rce(s) Supporting Document(s) TROPONIN T <0.01 NG/ML 0.00 - 0.10 [facility] TROPONIN T0.1 ng/ml Recommended as the c linical threshold value forTroponin T. ID Date Data Source [id number] 03/08/2020 09:21:00 PM [facility] Name Value Range Interpretation Code Description Data Libia rce(s) Supporting Document(s) URINALYSIS [facility] d[facility]ie URINALYSIS SOURCE Clean Catch [facility] ital COLOR yellow NORMAL: Yellow [facility] CLARITY clear NORMAL: Clear [facility] Specific gravity of Urine by Test strip 1.020 1.001 - 1.030 [facility] pH 6.5 5 - 9 [facility] Glucose [Mass/volume] in Urine by Test strip [facility]: [facility] Bil[facility].total [Presence] in Urine by Test strip NEG NORMAL: Negative [facility] Ketones [Presence] in Urine by Test strip 5 NORMAL: Negative [facility] Protein [Mass/volume] in Urine by Test strip NEG NORMAL: Negat [facility] Nitrite [Presence] in Urine by Test strip NEG NORMAL: Negative [facility] BLOOD NEG NORMAL: Negative [facility] Leukocyte esterase [Presence] in Urine by Test strip 100 MAIRA L: Negative [facility] Urobilinogen [Mass/volume] in Urine by Test strip NOR less severo n 1.0 mg/dL [facility] MICROSCOPIC See Below [facility] ital WBC 7 - 10 NORMAL: NONE SEEN A [facility] EPITHELIAL MODERATE NORMAL: NONE SEEN A [facility] Mucus [Presence] in Urine sediment by Light microscopy Trace NORMAL: NONE SEEN [facility] ID Date Data Source [id number] 03/08/2020 09:24:00 PM [facility] Name Value Range Interpretation Code Description Data Libia rce(s) Supporting Document(s) DRUG SCREEN URINE [facility] URINE DRUG SCREEN Amphetamine [Presence] in Urine by Screen method NEGATIVE NORMAL: N EGATIVE [facility] BARBITURATES NEGATIVE NORMAL: NEGATIVE [facility] BENZO NEGATIVE NORMAL: NEGATIVE [facility] COCAINE NEGATIVE NORMAL: NEGATIVE [facility] Tetrahydrocannabinol [Presence] in Urine NEGATIVE NORMAL: NEGATIVE [facility] OPIATES NEGATIVE NORMAL: NEGATIVE [facility] Phencyclidine [Presence] in Urine by Screen method NEGATIVE NOR MAL: NEGATIVE [facility] \\BLDo\\URINE DRUG SCR EEN INTERPRETATION\\BLDx\\ THE CUTOFFF LEVELS FOR DETECTION ARE FOLLOWS: AMPHETAMINES 1000 ng/ml BARBITUARATES 200 ng/ml BENZODIAZEPINES 100 ng/ml THC 50 ng/ml PHENCYCLIDINE 25 ng/ml OPIATES 300 ng/ml COCAINE 300 ng/ml ALL POSITIVES ARE CONSIDERED PRESUMPTIVE POSITIVE CONFIRMATION WILL BE PERFORMED AT PHYSICIAN REQUEST. ID Date Data Source [id number] 03/12/2020 12:09:00 PM [facility] Name Value Range Interpretation Code Description Data Libia rce(s) Supporting Document(s) CULTURE URINE [facility] _CULTURE URINE_$$[id number]$$[id number]$$[id number]$$262353$$[id number]$$006409$$000889$$074566$$156510$$ 025060$$786945$$655522$$660507$$326968$$430204$$787135$$233607$$872266$$973943$$ 218081$$189187$$899283$$887526$$640291$$676463$$156577$$233981 -- Continued on next page --Patient: COLIN DECKER Order: [id number] Page 2Culture: CULTURE URINE Status: Final ==== -- Continued on next page --Patient: COLIN DECKER Order: [id number] Page 2Culture: CULTURE URINE Status: Prelim =====$$[id number]$$[id number] DATE/TIME: 03/12/2020 11:06Culture: CULTURE URINE Status: FinalUrine Culture,Comprehensive: P1No growth in 36 - 48 hours. Previous result entered on 03/11/2020 14:54 ET No growth after 18-24 hours.P1 [facility] #: [id number] [address] [place] [address] [id number] [facility] [id number] Director : Jason Vann MD NPI #:Lab Di shireen : 03/11/20.1550.XMT.SENT REF 03/12/20.1209.XMT.SENT REF 03/12/20.1209. .to INDIRASukhdev LEYDA via fax ID Date Data Source [id number] 02/21/2020 12:57:06 PM EST NextGen ([facility]) Name Value Range Interpretation Code Description Data Libia rce(s) Supporting Document(s) NegativeLot: [id number]: 05/26/2020 High Sensitivity Urine Test NextGen ([facility]) ID Date Data Source [id number] 02/18/2020 02:15:00 AM EST [facility] 1 OrderSheet [facility] Emergency Department [address] [place] [address] Phone #: ext- [phone] 02/18/2020 02:03 Patient: Shelli SHAW Sex: F : 2000 Age: 19yWEIGHT:60.5 kg [...] rce(s) Supporting Document(s) ID Date Data Source [id number] 02/18/2020 02:15:00 AM [place] [address] Medication Reconciliation Report [facility] Emergency Department [address] [place] [address] Phone #: ext- [phone] 02/18/2020 02:03 Patient: Shelli SHAW Sex: F : 2000 Age: 19yWeight: 60.5 kgHeight/Length: 64 in.BMI: 22.9ALLERGIES: No Known Drug AllergyThe patient's Home Medications are listed below:NONE.The source(s) of the original Home Medication information:Not obtained.The following Medications were given to the patient in the Emergency Department:None.The following Medications were prescribed to the patient:None. Name Value Range Interpretation Code Description Data [facility](s) Supporting Document(s) ID Date Data Source [id number] 02/18/2020 02:15:00 AM [place] [address] Medication Administration Record [facility] Emergency Department [address] [place] [address] Phone #: ext- [phone] 02/18/2020 02:03 Patient: Shelli SHAW Sex: F : 2000 Age: 19yWeight: 60.5 kgHeight/Length: 64 inBMI: 22.9ALLERGIES: No Known Drug AllergyDate/Time Medication Administered Medication Ordered Name Value Range Interpretation Code Description Data Libia rce(s) Supporting Document(s) ID Date Data Source [id number] 02/18/2020 02:15:00 AM [place] [address] General Instructions [facility] Emergency Department [address] [place] [address] Phone #: ext- [phone] 02/18/2020 02:03 Patient: [...] INFORMATIONChest Wall Pain: Costochondritis 2 General Instructions [facility] Emergency Department [address] [place] [address] Phone #: ext- [phone] 02/18/2020 02:03 Patient: [...] prescribed medicines as directed. 3 General Instructions [facility] Emergency Department [address] [place] [address] Phone #: ext- [phone] 02/18/2020 02:03 --- [...] or as directed by your healthcare provider [phone] [employer]. [address] [place] [address], [place] [address]. All rights reserved. This information is not intended as asubstitute for professional medical care. Always follow your healthcare professional's instructions. You have been given the following additional information: Chest Wall Pain, Costochondritis(Electronically signed by Maira Sauceda MD 02/18/2020 06:57) Name Value Range Interpretation Code Description Data Libia rce(s) Supporting Document(s) ID Date Data Source [id number] 02/18/2020 02:15:00 AM EST [facility] 1 Clinical Report - Nurses [facility] Emergency Department [address] [place] [address] Phone #: ext- [phone] 02/18/2020 02:03 Patient: Shelli SHAW Sex: F : 2000 Age: 19yTRIAGEArrived by private vehicle. Historian: patient. Accompanied by friend.Acuity: LEVEL 3.Chief Complaint: CHEST PAIN.Alert. No acute distress.This started just prior to arrival. 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 --02:10 02/18/20 Beatriz Garcia R.N.02:04 02/18/20. BP: 132/87. MAP: 102. HR: 69. RR: 17. O2 saturation: 99% on room air. Temp: 97.7 F(oral). Pain level now: 10/05. --02:02/18/20 Beatriz Garcia R.N.Weight: 60.5 kg stated. Height/Length: [...] killing others?". 2 Clinical Report - Nurses [facility] Emergency Department [address] [place] [address] Phone #: ext- [phone] 02/18/2020 02:03 Patient: [...] dry. Normal skin turgor. Skin is non-tender. --02:11 02/18/20 Beatriz Garcia R.N.NURSING PROGRESS NOTESMonitoring of patient [...] room air. Temp: deferred. Pain level now: 310. --03:15 02/18/20 Beatriz Garcia R.N. The patient is calm and resting quietly. --03:15 02/18/20 Beatriz Garcia R.N. 3 Clinical Report - Nurses [facility] Emergency Department [address] [place] [address] Phone #: ext- [phone] 02/18/2020 02:03 Patient: [...] Patient verbalized understanding. Written instructions provided in Occitan. The patient was discharged home and accompanied [...] rce(s) Supporting Document(s) ID Date Data Source [id number] 02/18/2020 02:15:00 AM EST [facility] 1 Clinical Report - Physicians/Mid Levels [facility] Emergency Department [address] [place] [address] Phone #: ext- [phone] 02/18/2020 02:03 Patient: [...] arrival. 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 2 Clinical Report - Physicians/Mid Levels [facility] Emergency Department [address] [place] [address] Phone #: ext- [phone] 02/18/2020 02:03 Patient: [...] PANEL 3 Clinical Report - Physicians/Mid Levels [facility] Emergency Department [address] [place] [address] Phone #: ext- [phone] 02/18/2020 02:03 Patient: [...] Male GFR Interprentation 20-49 yrs >60 mL/min Trpadz68-46 yrs >56 mL/min Normal 60-69 yrs >49 mL/min Normal 70-79yrs>42 mL/min Normal 80 and above >35 mL/min Normal Female GFRInterpretation 20-39 yrs >60 mL/min Normal 40-49 yrs >58 mL/minNormal 50-59 yrs >51 mL/min Normal 60-69 yrs >45 mL/min Fiieix60-59 yrs >39 mL/min Normal 80 and above >32 mL/min NormalBeta-HCG, Qual Serum: (SARAHI: 02/18/2020 02:20) ( MsgRcvd 02/18/2020 02:45) Final results Test Result Flag Units (Reference) HCG SERUM QUAL NEGATIVE (NORMAL: NEGAT HCG SERUM QL REENTER NEGATIVE (NORMAL: NEGAT { KIT LOT # [id number] ){ KIT EXP DATE01/01/21 ){ PROCEDURAL CONTROL VALID)Chest Portable 1 View: (SARAHI: 02/18/2020 02:35) ( MsgRcvd 02/18/2020 03:05) Final [place] [address] ---------NAME--------- NUMBER SEX AGE ADMIT DISC. XRAY# F/C TYPE COLIN DECKER [id number] F 19 02/18/20 [id number] NA E/R DATE OF : 2000 M/R# [id number] #: [id number] TR-06 LOCATION: EMERGENCY DEPT TRANSCRIBED: 02/18/20 3:04 IF CHEST PORTABLE [id number] COMPLETED:02/18/20 3:04 KJE 71000 Reason(s): Chest Pain PHYSICIAN: ATIYA R A D I O L O G Y R E P O R T PATIENT HISTORY: 4 Clinical Report - Physicians/Mid Levels [facility] Emergency Department [address] [place] [address] Phone #: ext- [phone] 02/18/2020 02:03 Patient: Shelli SHAW Sex: F : 2000 Age: 19y Chest Pain Patient [...] painINSTRUCTIONS 5 Clinical Report - Physicians/Mid Levels [facility] Emergency Department [address] [place] [address] Phone #: ext- [phone] 02/18/2020 02:03 Patient: [...] rce(s) Supporting Document(s) ID Date Data Source [id number] 02/18/2020 03:04:[address] [address] ---------NAME--------- NUMBER SEX AGE ADMIT DISC. XRAY# F/C TYPE COLIN DECKER [id number] F 19 02/18/20 [id number] NA E/R DATE OF : 2000 M/R# [id number] #: [id number] TR-06 LOCATION: EMERGENCY DEPT TRANSCRIBED: 02/18/20 3:04 IF CHEST PORTABLE [id number] COMPLETED:02/18/20 3:04 KJE 04870 Reason(s): Chest Pain PHYSICIAN: ATIYA R A [...] rce(s) Supporting Document(s) ID Date Data Source [id number] 02/18/2020 02:45:00 AM EST [facility] Name Value Range Interpretation Code Description Data Libia rce(s) Supporting Document(s) CBC W/AUTOMATED DIFF [facility] COMPLETE BLOOD COUNT Leukocytes [#/volume] in Blood by Automated count 6.5 10^3/uL 4.2 - 1 1.0 [facility] Erythrocytes [#/volume] in Blood by Automated count 4.68 10^6/uL 4. 20 - 5.40 [facility] Hemoglobin [Mass/volume] in Blood 13.6 g/dL 12.0 - 16.0 [facility] Hematocrit [Volume Fraction] of Blood by Automated count 40.3 % 3 7.0 - 47.0 [facility] Erythrocyte mean corpuscular volume [Entitic volume] by Auto mated count 86.1 fL 81.0 - 101 [facility] Erythrocyte mean corpuscular hemoglobin [Entitic mass] by Automated count 29.1 pg 27.0 - 34.0 [facility] Erythrocyte mean corpuscular hemoglobin concentration [Mass/volume] by Automated count 33.7 g/dL 31.0 - 36.0 [facility] Erythrocyte distribution width [Ratio] by Automated count 14.0 % 11.5 - 14.5 [facility] Platelets [#/volume] in Blood by Automated count 277 10^3/uL 150 - 45 0 [facility] Platelet mean volume [Entitic volume] in Blood by Automated count 9.4 fL 7.4 - 10.4 [facility] Neutrophils/100 leukocytes in Blood by Automated count 53.2 % 37. 0 - 80.0 [facility] Lymphocytes/100 leukocytes in Blood by Manual count 35.8 % 25.0 - 40.0 [facility] Monocytes/100 leukocytes in Blood by Automated count 6.6 % 3.0 - 8.0 [facility] Eosinophils/100 leukocytes in Blood by Automated count 3.5 % 0.0 - 7.0 [facility] Basophils/100 leukocytes in Blood by Automated count 0.6 % 0.0 - 2.5 [facility] %IG 0.3 % 0.0 - 0.0 H [facility] al %NRBC 0.0 % 0.0 - 0.0 [facility] al Neutrophils [#/volume] in Blood by Automated count 3.48 10^3/uL 2.00 - 6.90 [facility] Lymphocytes [#/volume] in Blood by Automated count 2.34 10^3/uL 0.60 - 3.40 [facility] Monocytes [#/volume] in Blood by Automated count 0.43 10^3/uL 0.00 - 0.90 [facility] Eosinophils [#/volume] in Blood by Automated count 0.23 10^3/uL 0.00 - 0.70 [facility] Basophils [#/volume] in Blood by Automated count 0.04 10^3/uL 0.00 - 0.20 [facility] #IG 0.02 10^3/uL 0.00 - 0.10 [facility] ospital #NRBC 0.00 10^3/uL 0.00 - 0.00 [facility]ital MANUAL DIFF NOT INDICATED [facility] RBC MORPH NOT INDICATED [facility] ID Date Data Source [id number] 02/18/2020 02:45:00 AM EST [facility] Name Value Range Interpretation Code Description Data Libia rce(s) Supporting Document(s) HCG SERUM QUAL NEGATIVE NORMAL: NEGATIVE [facility] HCG SERUM QL REENTER NEGATIVE NORMAL: NEGATIVE [facility] { KIT LOT # [id number] ){ KIT EXP DATE 01/01/21 ){ PROCEDURAL CONTROL VALID ) ID Date Data Source [id number] 02/18/2020 02:56:00 AM EST [facility] Name Value Range Interpretation Code Description Data Libia rce(s) Supporting Document(s) COMPREHENSIVE METABOLIC PANEL [facility] COMPREHENSIVE METABOLIC PANEL Sodium [Moles/volume] in Serum or Plasma 138 mEq/L 134 - 153 [facility] Potassium [Moles/volume] in Serum or Plasma 3.8 mEq/L 3.6 - 5.0 [facility] Chloride [Moles/volume] in Serum or Plasma 103 mEq/L 98 - 107 [facility] Carbon dioxide, total [Moles/volume] in Serum or Plasma 27 MEQ/L 22 - 30 [facility] Glucose [Mass/volume] in Serum or Plasma 100 MG/DL 65 - 110 [facility] BUN 10 MG/DL 7 - 21 [facility] al Creatinine [Mass/volume] in Serum or Plasma 0.6 MG/DL 0.7 - 1.5 L [facility] BUN/CREAT 17 8 - 27 [facility] Protein [Mass/volume] in Serum or Plasma 7.4 G/DL 6.3 - 8.2 [facility] Albumin [Mass/volume] in Serum or Plasma 4.7 G/DL 3.9 - 5.0 [facility] Globulin [Mass/volume] in Serum by calculation 2.7 GM/DL 2.4 - 3.2 [facility] A/G RATIO 1.7 0.8 - 2.0 [facility] Calcium [Mass/volume] in Serum or Plasma 9.8 MG/DL 8.4 - 10.2 [facility] Bilirubin.total [Mass/volume] in Serum or Plasma <0.7 MG/DL 0.2 - 1.3 [facility] Alkaline phosphatase [Enzymatic activity/volume] in Serum or Plasma 74 U/L 38 - 126 [facility] Aspartate aminotransferase [Enzymatic activity/volume] in Serum or Plasma 12 U/L 5 - 40 [facility] Alanine aminotransferase [Enzymatic activity/volume] in Seru m or Plasma 11 U/L 7 - 56 [facility] Anion gap 3 in Serum or Plasma 8.0 mmol/L 8.0 - 16.0 [facility] AGE 19 yrs [facility] NON-AA GFR >60 mL/min [facility] AFR AMER GFR >60 mL/min [facility] Male GFR In terprentation 20-49 [...] >32 mL/min Normal ID Date Data Source [id number] 02/01/2020 12:10:00 PM EST TRAM ([facility]) Name Value Range Interpretation Code Description Data Libia rce(s) Supporting Document(s) white blood count 6.7 10 4.0-10.0 White Blood Count ESTHELA ([facility]) hemoglobin 12.5 g/dL 12.0-15.5 Hemoglobin [facility] ([facility]) red blood count 4.43 10 4.00-5.40 Red Blood Count ATHE NA ([facility]) hematocrit 38.8 % 36.0-47.0 Hematocrit [facility] ([facility]) mean corpuscular volume 87.6 fL 80.0-96.0 Mean Corpusc ular Volume ESTHELA ([facility]) mean corpuscular HGB conc 32.2 g/dL 32.0-36.5 Mean Corpu scular HGB Conc ESTHELA ([facility]) mean corpuscular hemoglobin 28.2 pg 27.0-33.0 Mean Cor puscular Hemoglobin [facility] ([facility]) red cell distribution width 13.5 % 11.5-14.5 Red Cell Distribution Width [facility] ([facility]) platelet count, automated 271 10 150-450 Platelet C ount, Automated [facility] ([facility]) neutrophils % 61.5 % 36.0-66.0 Neutrophils % ESTHELA ( [facility]) lymph % 28.9 % 24.0-44.0 Lymph % TRAM ([facility]) mono % 5.8 % 0.0-5.0 Above high normal [place] % ESTHELA ([facility]) eos % 2.8 % 0.0-3.0 Eos % TRAM ([facility]) baso % 0.6 % 0.0-1.0 Baso % TRAM ([facility]) nucleated red blood cell % 0.0 % 0-0 Nucleated Red Blood Cell % TRAM ([facility]) immature granulocyte % 0.4 % 0-3.0 Immature Gran ulocyte % TRAM ([facility]) mono # 0.4 10 0.0-0.8 [place] # TRAM ([facility]) neutrophils # 4.1 10 1.5-8.5 Neutrophils # ESTHELA ( [facility]) lymph # 1.9 10 1.5-5.0 Lymph # EST[facility]LA ([facility]) eos # 0.2 10 0.0-0.5 Eos # [facility] ([facility]) baso # 0.0 10 0.0-0.2 Baso # TRAM ([facility]) ID Date Data Source [id number] 02/01/2020 12:10:00 PM EST [facility] ([facility]) Name Value Range Interpretation Code Description Data Libia rce(s) Supporting Document(s) HCG, serum quantitative < 1.0 HCG, Serum Q uantitative TRAM ([facility]) ID Date Data Source [id number] 02/01/2020 12:10:00 PM EST [facility] ([facility]) Name Value Range Interpretation Code Description Data Libia rce(s) Supporting Document(s) thyroid stimulating hormone 2.300 uIU/mL 0.463-3.98 Thyroid Stimulating Hormone [facility] ([facility]) ID Date Data Source [id number] 02/01/2020 12:10:00 PM EST [facility] ([facility]) Name Value Range Interpretation Code Description Data Libia rce(s) Supporting Document(s) glucose, fasting 85 mg/dL 70-100 Glucose, Fasting AT AMY ([facility]) blood urea nitrogen 10 mg/dL 7-18 Blood Urea Nitro gen TRAM ([facility]) creatinine for GFR 0.76 mg/dL 0.55-1.30 Creatinine for GF R TRAM ([facility]) sodium level 141 mEq/L 136-145 Sodium Level [facility] (No [facility]) potassium serum 4.1 mEq/L 3.5-5.1 Potassium Serum ATHE ([facility]) carbon dioxide level 28 mEq/L 21-32 Carbon Dioxide Level EST[place] ([facility]) chloride level 107 mEq/L 98-107 Chloride Level [facility] ([facility]) calcium level 9.7 mg/dL 8.5-10.1 Calcium Level ESTHE[place] ( [facility]) anion gap 6 mEq/L 8-16 Below low normal Anion Gap TRAM ( [facility]) ALT/SGPT 13 U/L 12-78 ALT/SGPT [place] ([facility]) AST/SGOT 4 U/L 7-37 Below low normal AST/SGOT [place] ( [facility]) bilirubin,total 0.5 mg/dL 0.2-1.0 Bilirubin,total ATHE ([facility]) alkaline phosphatase 73 U/L 45-117 Alkaline Phosph atase [place] ([facility]) total protein 7.1 gm/dL 6.4-8.2 Total Protein EST[place] ( [facility]) albumin 3.9 gm/dL 3.2-5.2 Albumin [facility] ([facility]) albumin/globulin ratio 1.2-2.2 Albumin/globu dyana Ratio [facility] ([facility]) ID Date Data Source [id number] 02/01/2020 12:10:00 PM EST [facility] ([facility]) Name Value Range Interpretation Code Description Data Libia rce(s) Supporting Document(s) white blood count 6.7 10 4.0-10.0 White Blood Count [facility] ([facility]) red blood count 4.43 10 4.00-5.40 Red Blood Count ATHE NA ([facility]) hemoglobin 12.5 g/dL 12.0-15.5 Hemoglobin [facility] ([facility]) mean corpuscular volume 87.6 fL 80.0-96.0 Mean Corpusc ular Volume EST[place]LA ([facility]) hematocrit 38.8 % 36.0-47.0 Hematocrit [facility] ([facility]) mean corpuscular hemoglobin 28.2 pg 27.0-33.0 Mean Cor puscular Hemoglobin [facility] ([facility]) mean corpuscular HGB conc 32.2 g/dL 32.0-36.5 Mean Corpu scular HGB Conc [place] ([facility]) platelet count, automated 271 10 150-450 Platelet C ount, Automated [place] ([facility]) neutrophils % 61.5 % 36.0-66.0 Neutrophils % TRAM ( [facility]) red cell distribution width 13.5 % 11.5-14.5 Red Cell Distribution Width EST[place] ([facility]) mono % 5.8 % 0.0-5.0 Above high normal [place] % EST[facility] ([facility]) baso % 0.6 % 0.0-1.0 Baso % [facility] ([facility]) eos % 2.8 % 0.0-3.0 Eos % [facility] ([facility]) lymph % 28.9 % 24.0-44.0 Lymph % [facility] ([facility]) lymph # 1.9 10 1.5-5.0 Lymph # EST[place]LA ([facility]) immature granulocyte % 0.4 % 0-3.0 Immature Gran ulocyte % EST[place]LA ([facility]) nucleated red blood cell % 0.0 % 0-0 Nucleated Red Blood Cell % EST[facility]LA ([facility]) neutrophils # 4.1 10 1.5-8.5 Neutrophils # ESTHELA ( [facility]) baso # 0.0 10 0.0-0.2 Baso # EST[facility] ([facility]) mono # 0.4 10 0.0-0.8 [place] # ESTHELA ([facility]) eos # 0.2 10 0.0-0.5 Eos # EST[facility] ([facility]) ID Date Data Source [id number] 02/01/2020 12:10:00 PM EST [place] ([facility]) Name Value Range Interpretation Code Description Data Libia rce(s) Supporting Document(s) HCG, serum quantitative < 1.0 HCG, Serum Q uantitative TRAM ([facility]) ID Date Data Source [id number] 02/01/2020 12:10:00 PM EST [place] ([facility]) Name Value Range Interpretation Code Description Data Libia rce(s) Supporting Document(s) thyroid stimulating hormone 2.300 uIU/mL 0.463-3.98 Thyroid Stimulating Hormone TRAM ([facility]) ID Date Data Source [id number] 02/01/2020 12:10:00 PM EST [place] ([facility]) Name Value Range Interpretation Code Description Data Libia rce(s) Supporting Document(s) glucose, fasting 85 mg/dL 70-100 Glucose, Fasting AT AMY ([facility]) blood urea nitrogen 10 mg/dL 7-18 Blood Urea Nitro gen TRAM ([facility]) creatinine for GFR 0.76 mg/dL 0.55-1.30 Creatinine for GF R TRAM ([facility]) potassium serum 4.1 mEq/L 3.5-5.1 Potassium Serum ATH NA ([facility]) sodium level 141 mEq/L 136-145 Sodium Level [facility] (No [facility]) anion gap 6 mEq/L 8-16 Below low normal Anion Gap [facility] ( [facility]) chloride level 107 mEq/L 98-107 Chloride Level [facility] ([facility]) carbon dioxide level 28 mEq/L 21-32 Carbon Dioxide Level [facility] ([facility]) AST/SGOT 4 U/L 7-37 Below low normal AST/SGOT [place] ( [facility]) calcium level 9.7 mg/dL 8.5-10.1 Calcium Level [place] ( [facility]) ALT/SGPT 13 U/L 12-78 ALT/SGPT [place] ([facility]) alkaline phosphatase 73 U/L 45-117 Alkaline Phosph atase [facility] ([facility]) albumin 3.9 gm/dL 3.2-5.2 Albumin [facility] ([facility]) bilirubin,total 0.5 mg/dL 0.2-1.0 Bilirubin,total ATHE ([facility]) total protein 7.1 gm/dL 6.4-8.2 Total Protein [place] ( [facility]) albumin/globulin ratio 1.2-2.2 Albumin/globu dyana Ratio [facility] ([facility]) ID Date Data Source [id number] 02/01/2020 12:10:00 PM EST [place] ([facility]) Name Value Range Interpretation Code Description Data Libia rce(s) Supporting Document(s) white blood count 6.7 10 4.0-10.0 White Blood Count [facility] ([facility]) mean corpuscular volume 87.6 fL 80.0-96.0 Mean Corpusc ular Volume [facility] ([facility]) hematocrit 38.8 % 36.0-47.0 Hematocrit [place] ([facility]) red blood count 4.43 10 4.00-5.40 Red Blood Count ATHE NA ([facility]) hemoglobin 12.5 g/dL 12.0-15.5 Hemoglobin [place] ([facility]) mean corpuscular hemoglobin 28.2 pg 27.0-33.0 Mean Cor puscular Hemoglobin [facility] ([facility]) platelet count, automated 271 10 150-450 Platelet C ount, Automated ESTHELA ([facility]) mean corpuscular HGB conc 32.2 g/dL 32.0-36.5 Mean Corpu scular HGB Conc TRAM ([facility]) red cell distribution width 13.5 % 11.5-14.5 Red Cell Distribution Width ESTHELA ([facility]) lymph % 28.9 % 24.0-44.0 Lymph % TRAM ([facility]) mono % 5.8 % 0.0-5.0 Above high normal [place] % TRAM ([facility]) eos % 2.8 % 0.0-3.0 Eos % TRAM ([facility]) neutrophils % 61.5 % 36.0-66.0 Neutrophils % TRAM ( [facility]) baso % 0.6 % 0.0-1.0 Baso % TRAM ([facility]) neutrophils # 4.1 10 1.5-8.5 Neutrophils # TRAM ( [facility]) nucleated red blood cell % 0.0 % 0-0 Nucleated Red Blood Cell % TRAM ([facility]) immature granulocyte % 0.4 % 0-3.0 Immature Gran ulocyte % TRAM ([facility]) mono # 0.4 10 0.0-0.8 [place] # TRAM ([facility]) eos # 0.2 10 0.0-0.5 Eos # ESTHELA ([facility]) baso # 0.0 10 0.0-0.2 Baso # TRAM ([facility]) lymph # 1.9 10 1.5-5.0 Lymph # TRAM ([facility]) ID Date Data Source [id number] 02/01/2020 12:10:00 PM EST TRAM ([facility]) Name Value Range Interpretation Code Description Data Libia rce(s) Supporting Document(s) HCG, serum quantitative < 1.0 HCG, Serum Q uantitative TRAM ([facility]) ID Date Data Source [id number] 02/01/2020 12:10:00 PM EST ESTHELA ([facility]) Name Value Range Interpretation Code Description Data Libia rce(s) Supporting Document(s) thyroid stimulating hormone 2.300 uIU/mL 0.463-3.98 Thyroid Stimulating Hormone TRAM ([facility]) ID Date Data Source [id number] 02/01/2020 12:10:00 PM EST ESTHELA ([facility]) Name Value Range Interpretation Code Description Data Libia rce(s) Supporting Document(s) glucose, fasting 85 mg/dL 70-100 Glucose, Fasting AT [facility] ([facility]) blood urea nitrogen 10 mg/dL 7-18 Blood Urea Nitro gen ESTHELA ([facility]) sodium level 141 mEq/L 136-145 Sodium Level ESTHELA (No [facility]) creatinine for GFR 0.76 mg/dL 0.55-1.30 Creatinine for GF R ESTHELA ([facility]) carbon dioxide level 28 mEq/L 21-32 Carbon Dioxide Level ESTHELA ([facility]) potassium serum 4.1 mEq/L 3.5-5.1 Potassium Serum ATHE NA ([facility]) chloride level 107 mEq/L 98-107 Chloride Level TRAM ([facility]) AST/SGOT 4 U/L 7-37 Below low normal AST/SGOT ESTHELA ( [facility]) ALT/SGPT 13 U/L 12-78 ALT/SGPT EST[place]LA ([facility]) anion gap 6 mEq/L 8-16 Below low normal Anion Gap ESTHELA ( [facility]) calcium level 9.7 mg/dL 8.5-10.1 Calcium Level ESTHELA ( [facility]) total protein 7.1 gm/dL 6.4-8.2 Total Protein ESTHELA ( [facility]) bilirubin,total 0.5 mg/dL 0.2-1.0 Bilirubin,total ATHE NA ([facility]) alkaline phosphatase 73 U/L 45-117 Alkaline Phosph atase ESTHELA ([facility]) albumin 3.9 gm/dL 3.2-5.2 Albumin ESTHELA ([facility]) albumin/globulin ratio 1.2-2.2 Albumin/globu dyana Ratio ESTHELA ([facility]) ID Date Data Source [id number] 02/01/2020 12:10:00 PM EST ESTHELA ([facility]) Name Value Range Interpretation Code Description Data Libia rce(s) Supporting Document(s) red blood count 4.43 10 4.00-5.40 Red Blood Count ATHE NA ([facility]) white blood count 6.7 10 4.0-10.0 White Blood Count ESTHELA ([facility]) mean corpuscular volume 87.6 fL 80.0-96.0 Mean Corpusc ular Volume ESTHELA ([facility]) hematocrit 38.8 % 36.0-47.0 Hematocrit ESTHELA ([facility]) hemoglobin 12.5 g/dL 12.0-15.5 Hemoglobin ESTHELA ([facility]) mean corpuscular HGB conc 32.2 g/dL 32.0-36.5 Mean Corpu scular HGB Conc ETSHELA ([facility]) mean corpuscular hemoglobin 28.2 pg 27.0-33.0 Mean Cor puscular Hemoglobin ESTHELA ([facility]) red cell distribution width 13.5 % 11.5-14.5 Red Cell Distribution Width EST[place] ([facility]) lymph % 28.9 % 24.0-44.0 Lymph % EST[place]LA ([facility]) platelet count, automated 271 10 150-450 Platelet C ount, Automated EST[place] ([facility]) mono % 5.8 % 0.0-5.0 Above high normal [place] % ESTHELA ([facility]) neutrophils % 61.5 % 36.0-66.0 Neutrophils % ESTHELA ( [facility]) baso % 0.6 % 0.0-1.0 Baso % ESTHELA ([facility]) immature granulocyte % 0.4 % 0-3.0 Immature Gran ulocyte % ESTHELA ([facility]) eos % 2.8 % 0.0-3.0 Eos % ESTHELA ([facility]) neutrophils # 4.1 10 1.5-8.5 Neutrophils # ESTHELA ( [facility]) mono # 0.4 10 0.0-0.8 [place] # ESTHELA ([facility]) lymph # 1.9 10 1.5-5.0 Lymph # ESTHELA ([facility]) nucleated red blood cell % 0.0 % 0-0 Nucleated Red Blood Cell % ESTHELA ([facility]) eos # 0.2 10 0.0-0.5 Eos # ESTHELA ([facility]) baso # 0.0 10 0.0-0.2 Baso # ESTHELA ([facility]) ID Date Data Source [id number] 02/01/2020 12:10:00 PM EST ESTHELA ([facility]) Name Value Range Interpretation Code Description Data Libia rce(s) Supporting Document(s) HCG, serum quantitative < 1.0 HCG, Serum Q uantitative TRAM ([facility]) ID Date Data Source [id number] 02/01/2020 12:10:00 PM EST ESTHE[place] ([facility]) Name Value Range Interpretation Code Description Data Libia rce(s) Supporting Document(s) thyroid stimulating hormone 2.300 uIU/mL 0.463-3.98 Thyroid Stimulating Hormone TRAM ([facility]) ID Date Data Source [id number] 02/01/2020 12:10:00 PM EST ESTHE[place] ([facility]) Name Value Range Interpretation Code Description Data Libia rce(s) Supporting Document(s) glucose, fasting 85 mg/dL 70-100 Glucose, Fasting AT [facility] ([facility]) blood urea nitrogen 10 mg/dL 7-18 Blood Urea Nitro gen TRAM ([facility]) creatinine for GFR 0.76 mg/dL 0.55-1.30 Creatinine for GF R TRAM ([facility]) potassium serum 4.1 mEq/L 3.5-5.1 Potassium Serum ATHE NA ([facility]) chloride level 107 mEq/L 98-107 Chloride Level ESTHELA ([facility]) sodium level 141 mEq/L 136-145 Sodium Level ESTHELA ([facility]) carbon dioxide level 28 mEq/L 21-32 Carbon Dioxide Level EST[place]LA ([facility]) anion gap 6 mEq/L 8-16 Below low normal Anion Gap ESTHELA ( [facility]) calcium level 9.7 mg/dL 8.5-10.1 Calcium Level ESTHE[place] ( [facility]) AST/SGOT 4 U/L 7-37 Below low normal AST/SGOT ESTHELA ( [facility]) bilirubin,total 0.5 mg/dL 0.2-1.0 Bilirubin,total ATHE NA ([facility]) alkaline phosphatase 73 U/L 45-117 Alkaline Phosph atase EST[place] ([facility]) ALT/SGPT 13 U/L 12-78 ALT/SGPT [place] ([facility]) albumin 3.9 gm/dL 3.2-5.2 Albumin EST[place] ([facility]) total protein 7.1 gm/dL 6.4-8.2 Total Protein ESTHELA ( [facility]) albumin/globulin ratio 1.2-2.2 Albumin/globu dyana Ratio ESTHELA ([facility]) ID Date Data Source [id number] 02/01/2020 12:10:00 PM EST ESTHELA ([facility]) Name Value Range Interpretation Code Description Data Libia rce(s) Supporting Document(s) white blood count 6.7 10 4.0-10.0 White Blood Count EST[place]LA ([facility]) hemoglobin 12.5 g/dL 12.0-15.5 Hemoglobin EST[place] ([facility]) red blood count 4.43 10 4.00-5.40 Red Blood Count ATHE ([facility]) hematocrit 38.8 % 36.0-47.0 Hematocrit ESTHELA ([facility]) mean corpuscular HGB conc 32.2 g/dL 32.0-36.5 Mean Corpu scular HGB Conc ESTHELA ([facility]) mean corpuscular volume 87.6 fL 80.0-96.0 Mean Corpusc ular Volume ESTHELA ([facility]) mean corpuscular hemoglobin 28.2 pg 27.0-33.0 Mean Cor puscular Hemoglobin ESTHELA ([facility]) red cell distribution width 13.5 % 11.5-14.5 Red Cell Distribution Width EST[place] ([facility]) neutrophils % 61.5 % 36.0-66.0 Neutrophils % ESTHELA ( [facility]) platelet count, automated 271 10 150-450 Platelet C ount, Automated EST[place] ([facility]) lymph % 28.9 % 24.0-44.0 Lymph % TRAM ([facility]) mono % 5.8 % 0.0-5.0 Above high normal [place] % TRAM ([facility]) nucleated red blood cell % 0.0 % 0-0 Nucleated Red Blood Cell % ESTHELA ([facility]) eos % 2.8 % 0.0-3.0 Eos % ESTHELA ([facility]) immature granulocyte % 0.4 % 0-3.0 Immature Gran ulocyte % ESTHELA ([facility]) baso % 0.6 % 0.0-1.0 Baso % TRAM ([facility]) neutrophils # 4.1 10 1.5-8.5 Neutrophils # ESTHELA ( [facility]) eos # 0.2 10 0.0-0.5 Eos # ESTHELA ([facility]) mono # 0.4 10 0.0-0.8 [place] # ESTHELA ([facility]) lymph # 1.9 10 1.5-5.0 Lymph # ESTHELA ([facility]) baso # 0.0 10 0.0-0.2 Baso # ESTHELA ([facility]) ID Date Data Source [id number] 02/01/2020 12:10:00 PM EST TRAM ([facility]) Name Value Range Interpretation Code Description Data Libia rce(s) Supporting Document(s) HCG, serum quantitative < 1.0 HCG, Serum Q uantitative [facility]) ID Date Data Source [id number] 02/01/2020 12:10:00 PM EST ESTHELA ([facility]) Name Value Range Interpretation Code Description Data Libia rce(s) Supporting Document(s) thyroid stimulating hormone 2.300 uIU/mL 0.463-3.98 Thyroid Stimulating Hormone TRAM ([facility]) ID Date Data Source [id number] 02/01/2020 12:10:00 PM EST ESTHELA ([facility]) Name Value Range Interpretation Code Description Data Libia rce(s) Supporting Document(s) glucose, fasting 85 mg/dL 70-100 Glucose, Fasting AT [facility]) potassium serum 4.1 mEq/L 3.5-5.1 Potassium Serum ATHE ([facility]) blood urea nitrogen 10 mg/dL 7-18 Blood Urea Nitro gen TRAM ([facility]) creatinine for GFR 0.76 mg/dL 0.55-1.30 Creatinine for GF R TRAM ([facility]) sodium level 141 mEq/L 136-145 Sodium Level ESTHELA ([facility]) chloride level 107 mEq/L 98-107 Chloride Level TRAM ([facility]) calcium level 9.7 mg/dL 8.5-10.1 Calcium Level [facility]) anion gap 6 mEq/L 8-16 Below low normal Anion Gap TRAM ( [facility]) carbon dioxide level 28 mEq/L 21-32 Carbon Dioxide Level ESTHELA ([facility]) ALT/SGPT 13 U/L 12-78 ALT/SGPT EST[place] ([facility]) alkaline phosphatase 73 U/L 45-117 Alkaline Phosph atase TRAM ([facility]) bilirubin,total 0.5 mg/dL 0.2-1.0 Bilirubin,total ATHE [facility]) AST/SGOT 4 U/L 7-37 Below low normal AST/SGOT TRAM ( [facility]) albumin/globulin ratio 1.2-2.2 Albumin/globu dyana Ratio ESTHELA ([facility]) total protein 7.1 gm/dL 6.4-8.2 Total Protein ESTHELA ( [facility]) albumin 3.9 gm/dL 3.2-5.2 Albumin ESTHELA ([facility]) ID Date Data Source [id number] 02/01/2020 12:10:00 PM EST ESTHELA ([facility]) Name Value Range Interpretation Code Description Data Libia rce(s) Supporting Document(s) white blood count 6.7 10 4.0-10.0 White Blood Count ESTHELA ([facility]) red blood count 4.43 10 4.00-5.40 Red Blood Count ATHE ([facility]) mean corpuscular volume 87.6 fL 80.0-96.0 Mean Corpusc ular Volume ESTHELA ([facility]) mean corpuscular hemoglobin 28.2 pg 27.0-33.0 Mean Cor puscular Hemoglobin ESTHELA ([facility]) hematocrit 38.8 % 36.0-47.0 Hematocrit ESTHELA ([facility]) hemoglobin 12.5 g/dL 12.0-15.5 Hemoglobin ESTHELA ([facility]) neutrophils % 61.5 % 36.0-66.0 Neutrophils % ESTHELA ( [facility]) mean corpuscular HGB conc 32.2 g/dL 32.0-36.5 Mean Corpu scular HGB Conc ESTHELA ([facility]) platelet count, automated 271 10 150-450 Platelet C ount, Automated EST[place] ([facility]) red cell distribution width 13.5 % 11.5-14.5 Red Cell Distribution Width ESTHELA ([facility]) baso % 0.6 % 0.0-1.0 Baso % ESTHELA ([facility]) lymph % 28.9 % 24.0-44.0 Lymph % ESTHELA ([facility]) mono % 5.8 % 0.0-5.0 Above high normal [place] % ESTHELA ([facility]) eos % 2.8 % 0.0-3.0 Eos % ESTHELA ([facility]) neutrophils # 4.1 10 1.5-8.5 Neutrophils # ESTHELA ( [facility]) nucleated red blood cell % 0.0 % 0-0 Nucleated Red Blood Cell % ESTHELA ([facility]) immature granulocyte % 0.4 % 0-3.0 Immature Gran ulocyte % ESTHELA ([facility]) lymph # 1.9 10 1.5-5.0 Lymph # ESTHELA ([facility]) mono # 0.4 10 0.0-0.8 [place] # ESTHELA ([facility]) eos # 0.2 10 0.0-0.5 Eos # ESTHELA ([facility]) baso # 0.0 10 0.0-0.2 Baso # ESTHELA ([facility]) ID Date Data Source [id number] 02/01/2020 12:10:00 PM EST ESTHELA ([facility]) Name Value Range Interpretation Code Description Data Libia rce(s) Supporting Document(s) HCG, serum quantitative < 1.0 HCG, Serum Q uantitative TRAM ([facility]) ID Date Data Source [id number] 02/01/2020 12:10:00 PM EST TRAM ([facility]) Name Value Range Interpretation Code Description Data Libia rce(s) Supporting Document(s) thyroid stimulating hormone 2.300 uIU/mL 0.463-3.98 Thyroid Stimulating Hormone TRAM ([facility]) ID Date Data Source [id number] 02/01/2020 12:10:00 PM EST ESTHELA ([facility]) Name Value Range Interpretation Code Description Data Libia rce(s) Supporting Document(s) blood urea nitrogen 10 mg/dL 7-18 Blood Urea Nitro gen TRAM ([facility]) glucose, fasting 85 mg/dL 70-100 Glucose, Fasting AT [facility] ([facility]) sodium level 141 mEq/L 136-145 Sodium Level ESTHELA (No [facility]) creatinine for GFR 0.76 mg/dL 0.55-1.30 Creatinine for GF R ESTHELA ([facility]) chloride level 107 mEq/L 98-107 Chloride Level EST[place] ([facility]) potassium serum 4.1 mEq/L 3.5-5.1 Potassium Serum ATHE NA ([facility]) anion gap 6 mEq/L 8-16 Below low normal Anion Gap ESTHELA ( [facility]) AST/SGOT 4 U/L 7-37 Below low normal AST/SGOT EST[place] ( [facility]) carbon dioxide level 28 mEq/L 21-32 Carbon Dioxide Level EST[place]LA ([facility]) calcium level 9.7 mg/dL 8.5-10.1 Calcium Level EST[place] ( [facility]) bilirubin,total 0.5 mg/dL 0.2-1.0 Bilirubin,total ATHE ([facility]) ALT/SGPT 13 U/L 12-78 ALT/SGPT [place] ([facility]) alkaline phosphatase 73 U/L 45-117 Alkaline Phosph atase EST[place] ([facility]) albumin 3.9 gm/dL 3.2-5.2 Albumin EST[place]LA ([facility]) total protein 7.1 gm/dL 6.4-8.2 Total Protein ESTHELA ( [facility]) albumin/globulin ratio 1.2-2.2 Albumin/globu dyana Ratio ESTHELA ([facility]) ID Date Data Source [id number] 02/01/2020 12:10:00 PM EST ESTHELA ([facility]) Name Value Range Interpretation Code Description Data Libia rce(s) Supporting Document(s) white blood count 6.7 10 4.0-10.0 White Blood Count ESTHELA ([facility]) hematocrit 38.8 % 36.0-47.0 Hematocrit EST[place] ([facility]) red blood count 4.43 10 4.00-5.40 Red Blood Count ATHE ([facility]) hemoglobin 12.5 g/dL 12.0-15.5 Hemoglobin ESTHELA ([facility]) mean corpuscular HGB conc 32.2 g/dL 32.0-36.5 Mean Corpu scular HGB Conc ESTHELA ([facility]) mean corpuscular volume 87.6 fL 80.0-96.0 Mean Corpusc ular Volume ESTHELA ([facility]) mean corpuscular hemoglobin 28.2 pg 27.0-33.0 Mean Cor puscular Hemoglobin ESTHELA ([facility]) platelet count, automated 271 10 150-450 Platelet C ount, Automated EST[place] ([facility]) neutrophils % 61.5 % 36.0-66.0 Neutrophils % TRAM ( [facility]) red cell distribution width 13.5 % 11.5-14.5 Red Cell Distribution Width ESTHELA ([facility]) baso % 0.6 % 0.0-1.0 Baso % ESTHELA ([facility]) mono % 5.8 % 0.0-5.0 Above high normal [place] % ESTHELA ([facility]) lymph % 28.9 % 24.0-44.0 Lymph % ESTHELA ([facility]) eos % 2.8 % 0.0-3.0 Eos % TRAM ([facility]) nucleated red blood cell % 0.0 % 0-0 Nucleated Red Blood Cell % TRAM ([facility]) immature granulocyte % 0.4 % 0-3.0 Immature Gran ulocyte % TRAM ([facility]) lymph # 1.9 10 1.5-5.0 Lymph # ESTHELA ([facility]) mono # 0.4 10 0.0-0.8 [place] # ESTHELA ([facility]) neutrophils # 4.1 10 1.5-8.5 Neutrophils # ESTHELA ( [facility]) eos # 0.2 10 0.0-0.5 Eos # ESTHELA ([facility]) baso # 0.0 10 0.0-0.2 Baso # ESTHELA ([facility]) ID Date Data Source [id number] 02/01/2020 12:10:00 PM EST ESTHELA ([facility]) Name Value Range Interpretation Code Description Data Libia rce(s) Supporting Document(s) HCG, serum quantitative < 1.0 HCG, Serum Q uantitative TRAM ([facility]) ID Date Data Source [id number] 02/01/2020 12:10:00 PM EST ESTHELA ([facility]) Name Value Range Interpretation Code Description Data Libia rce(s) Supporting Document(s) thyroid stimulating hormone 2.300 uIU/mL 0.463-3.98 Thyroid Stimulating Hormone TRAM ([facility]) ID Date Data Source [id number] 02/01/2020 12:10:00 PM EST ESTHELA ([facility]) Name Value Range Interpretation Code Description Data Libia rce(s) Supporting Document(s) glucose, fasting 85 mg/dL 70-100 Glucose, Fasting AT [facility]) sodium level 141 mEq/L 136-145 Sodium Level ESTHELA (No [facility]) creatinine for GFR 0.76 mg/dL 0.55-1.30 Creatinine for GF R TRAM ([facility]) blood urea nitrogen 10 mg/dL 7-18 Blood Urea Nitro gen EST[place] ([facility]) potassium serum 4.1 mEq/L 3.5-5.1 Potassium Serum ATHE NA ([facility]) chloride level 107 mEq/L 98-107 Chloride Level TRAM ([facility]) carbon dioxide level 28 mEq/L 21-32 Carbon Dioxide Level [place] ([facility]) anion gap 6 mEq/L 8-16 Below low normal Anion Gap ESTHELA ( [facility]) calcium level 9.7 mg/dL 8.5-10.1 Calcium Level [place] ( [facility]) AST/SGOT 4 U/L 7-37 Below low normal AST/SGOT TRAM ( [facility]) ALT/SGPT 13 U/L 12-78 ALT/SGPT [place] ([facility]) alkaline phosphatase 73 U/L 45-117 Alkaline Phosph atase EST[place]LA ([facility]) bilirubin,total 0.5 mg/dL 0.2-1.0 Bilirubin,total ATHE NA ([facility]) albumin 3.9 gm/dL 3.2-5.2 Albumin ESTHELA ([facility]) albumin/globulin ratio 1.2-2.2 Albumin/globu dyana Ratio ESTHELA ([facility]) total protein 7.1 gm/dL 6.4-8.2 Total Protein ESTHELA ( [facility]) ID Date Data Source [id number] 02/01/2020 12:10:00 PM EST ESTHELA ([facility]) Name Value Range Interpretation Code Description Data Libia rce(s) Supporting Document(s) red blood count 4.43 10 4.00-5.40 Red Blood Count ATHE ([facility]) white blood count 6.7 10 4.0-10.0 White Blood Count ESTHELA ([facility]) hematocrit 38.8 % 36.0-47.0 Hematocrit EST[place]LA ([facility]) hemoglobin 12.5 g/dL 12.0-15.5 Hemoglobin ESTHELA ([facility]) mean corpuscular volume 87.6 fL 80.0-96.0 Mean Corpusc ular Volume ESTHELA ([facility]) mean corpuscular hemoglobin 28.2 pg 27.0-33.0 Mean Cor puscular Hemoglobin ESTHELA ([facility]) mean corpuscular HGB conc 32.2 g/dL 32.0-36.5 Mean Corpu scular HGB Conc ESTHELA ([facility]) red cell distribution width 13.5 % 11.5-14.5 Red Cell Distribution Width EST[place] ([facility]) platelet count, automated 271 10 150-450 Platelet C ount, Automated EST[place] ([facility]) lymph % 28.9 % 24.0-44.0 Lymph % [facility]LA ([facility]) neutrophils % 61.5 % 36.0-66.0 Neutrophils % ESTHELA ( [facility]) mono % 5.8 % 0.0-5.0 Above high normal [place] % ESTHELA ([facility]) eos % 2.8 % 0.0-3.0 Eos % EST[facility]LA ([facility]) immature granulocyte % 0.4 % 0-3.0 Immature Gran ulocyte % ESTHELA ([facility]) nucleated red blood cell % 0.0 % 0-0 Nucleated Red Blood Cell % ESTHELA ([facility]) baso % 0.6 % 0.0-1.0 Baso % EST[facility]LA ([facility]) lymph # 1.9 10 1.5-5.0 Lymph # ESTHELA ([facility]) mono # 0.4 10 0.0-0.8 [place] # ESTHELA ([facility]) eos # 0.2 10 0.0-0.5 Eos # ESTHELA ([facility]) neutrophils # 4.1 10 1.5-8.5 Neutrophils # ESTHELA ( [facility]) baso # 0.0 10 0.0-0.2 Baso # ESTHELA ([facility]) ID Date Data Source [id number] 02/01/2020 12:10:00 PM EST [place] ([facility]) Name Value Range Interpretation Code Description Data Libia rce(s) Supporting Document(s) HCG, serum quantitative < 1.0 HCG, Serum Q uantitative TRAM ([facility]) ID Date Data Source [id number] 02/01/2020 12:10:00 PM EST [place] ([facility]) Name Value Range Interpretation Code Description Data Libia rce(s) Supporting Document(s) thyroid stimulating hormone 2.300 uIU/mL 0.463-3.98 Thyroid Stimulating Hormone TRAM ([facility]) ID Date Data Source [id number] 02/01/2020 12:10:00 PM EST [place] ([facility] [facility]) Name Value Range Interpretation Code Description Data Libia rce(s) Supporting Document(s) glucose, fasting 85 mg/dL 70-100 Glucose, Fasting AT AMY ([facility]) blood urea nitrogen 10 mg/dL 7-18 Blood Urea Nitro gen ESTHELA ([facility]) creatinine for GFR 0.76 mg/dL 0.55-1.30 Creatinine for GF R ETSHELA ([facility]) potassium serum 4.1 mEq/L 3.5-5.1 Potassium Serum ATHE NA ([facility]) sodium level 141 mEq/L 136-145 Sodium Level ESTHELA (No [facility]) chloride level 107 mEq/L 98-107 Chloride Level ESTHELA ([facility]) anion gap 6 mEq/L 8-16 Below low normal Anion Gap ESTHELA ( [facility]) carbon dioxide level 28 mEq/L 21-32 Carbon Dioxide Level ESTHELA ([facility]) calcium level 9.7 mg/dL 8.5-10.1 Calcium Level ESTHELA ( [facility]) ALT/SGPT 13 U/L 12-78 ALT/SGPT ESTHELA ([facility]) AST/SGOT 4 U/L 7-37 Below low normal AST/SGOT ESTHELA ( [facility]) alkaline phosphatase 73 U/L 45-117 Alkaline Phosph atase ESTHELA ([facility]) total protein 7.1 gm/dL 6.4-8.2 Total Protein ESTHELA ( [facility]) albumin 3.9 gm/dL 3.2-5.2 Albumin ESTHELA ([facility]) bilirubin,total 0.5 mg/dL 0.2-1.0 Bilirubin,total ATHE ([facility]) albumin/globulin ratio 1.2-2.2 Albumin/globu dyana Ratio ESTHELA ([facility]) ID Date Data Source [id number] 02/01/2020 12:10:00 PM EST ESTHELA ([facility]) Name Value Range Interpretation Code Description Data Libia rce(s) Supporting Document(s) white blood count 6.7 10 4.0-10.0 White Blood Count ESTHELA ([facility]) hematocrit 38.8 % 36.0-47.0 Hematocrit ESTHELA ([facility]) red blood count 4.43 10 4.00-5.40 Red Blood Count ATHE NA ([facility]) hemoglobin 12.5 g/dL 12.0-15.5 Hemoglobin ESTHELA ([facility]) mean corpuscular volume 87.6 fL 80.0-96.0 Mean Corpusc ular Volume ESTHELA ([facility]) red cell distribution width 13.5 % 11.5-14.5 Red Cell Distribution Width ESTHELA ([facility]) mean corpuscular hemoglobin 28.2 pg 27.0-33.0 Mean Cor puscular Hemoglobin ESTHELA ([facility]) mean corpuscular HGB conc 32.2 g/dL 32.0-36.5 Mean Corpu scular HGB Conc ESTHELA ([facility]) platelet count, automated 271 10 150-450 Platelet C ount, Automated ESTHELA ([facility]) lymph % 28.9 % 24.0-44.0 Lymph % ESTHELA ([facility]) neutrophils % 61.5 % 36.0-66.0 Neutrophils % ESTHELA ( [facility]) mono % 5.8 % 0.0-5.0 Above high normal [place] % ESTHELA ([facility]) nucleated red blood cell % 0.0 % 0-0 Nucleated Red Blood Cell % TRAM ([facility]) immature granulocyte % 0.4 % 0-3.0 Immature Gran ulocyte % ESTHELA ([facility]) baso % 0.6 % 0.0-1.0 Baso % ESTHELA ([facility]) eos % 2.8 % 0.0-3.0 Eos % ESTHELA ([facility]) mono # 0.4 10 0.0-0.8 [place] # ESTHELA ([facility]) neutrophils # 4.1 10 1.5-8.5 Neutrophils # ESTHELA ( [facility]) eos # 0.2 10 0.0-0.5 Eos # ESTHELA ([facility]) baso # 0.0 10 0.0-0.2 Baso # ESTHELA ([facility]) lymph # 1.9 10 1.5-5.0 Lymph # ESTHELA ([facility]) ID Date Data Source [id number] 02/01/2020 12:10:00 PM EST ESTHELA ([facility]) Name Value Range Interpretation Code Description Data Libia rce(s) Supporting Document(s) HCG, serum quantitative < 1.0 HCG, Serum Q uantitative TRAM ([facility]) ID Date Data Source [id number] 02/01/2020 12:10:00 PM EST ESTHELA ([facility]) Name Value Range Interpretation Code Description Data Libia rce(s) Supporting Document(s) thyroid stimulating hormone 2.300 uIU/mL 0.463-3.98 Thyroid Stimulating Hormone TRAM ([facility]) ID Date Data Source [id number] 02/01/2020 12:10:00 PM EST ESTHELA ([facility]) Name Value Range Interpretation Code Description Data Libia rce(s) Supporting Document(s) blood urea nitrogen 10 mg/dL 7-18 Blood Urea Nitro gen ESTHELA ([facility]) glucose, fasting 85 mg/dL 70-100 Glucose, Fasting AT [facility]) chloride level 107 mEq/L 98-107 Chloride Level ESTHELA ([facility]) sodium level 141 mEq/L 136-145 Sodium Level ESTHELA ([facility]) potassium serum 4.1 mEq/L 3.5-5.1 Potassium Serum ATHE NA ([facility]) creatinine for GFR 0.76 mg/dL 0.55-1.30 Creatinine for GF R ESTHELA ([facility]) carbon dioxide level 28 mEq/L 21-32 Carbon Dioxide Level ESTHELA ([facility]) calcium level 9.7 mg/dL 8.5-10.1 Calcium Level TRAM ( [facility]) anion gap 6 mEq/L 8-16 Below low normal Anion Gap TRAM ( [facility]) AST/SGOT 4 U/L 7-37 Below low normal AST/SGOT ESTHELA ( [facility]) ALT/SGPT 13 U/L 12-78 ALT/SGPT ESTHELA ([facility]) bilirubin,total 0.5 mg/dL 0.2-1.0 Bilirubin,total ATHE NA ([facility]) alkaline phosphatase 73 U/L 45-117 Alkaline Phosph atase ESTHELA ([facility]) albumin/globulin ratio 1.2-2.2 Albumin/globu dyana Ratio ESTHELA ([facility]) total protein 7.1 gm/dL 6.4-8.2 Total Protein ESTHELA ( [facility]) albumin 3.9 gm/dL 3.2-5.2 Albumin ESTHELA ([facility]) ID Date Data Source [id number] 02/01/2020 12:10:00 PM EST ESTHELA ([facility]) Name Value Range Interpretation Code Description Data Libia rce(s) Supporting Document(s) white blood count 6.7 10 4.0-10.0 White Blood Count ESTHELA ([facility]) red blood count 4.43 10 4.00-5.40 Red Blood Count ATHE ([facility]) mean corpuscular volume 87.6 fL 80.0-96.0 Mean Corpusc ular Volume ESTHELA ([facility]) hematocrit 38.8 % 36.0-47.0 Hematocrit ESTHELA ([facility]) hemoglobin 12.5 g/dL 12.0-15.5 Hemoglobin ESTHELA ([facility]) mean corpuscular hemoglobin 28.2 pg 27.0-33.0 Mean Cor puscular Hemoglobin ESTHELA ([facility]) mean corpuscular HGB conc 32.2 g/dL 32.0-36.5 Mean Corpu scular HGB Conc ESTHELA ([facility]) platelet count, automated 271 10 150-450 Platelet C ount, Automated ESTHELA ([facility]) red cell distribution width 13.5 % 11.5-14.5 Red Cell Distribution Width ESTHELA ([facility]) lymph % 28.9 % 24.0-44.0 Lymph % ESTHELA ([facility]) eos % 2.8 % 0.0-3.0 Eos % ESTHELA ([facility]) baso % 0.6 % 0.0-1.0 Baso % ESTHELA ([facility]) neutrophils % 61.5 % 36.0-66.0 Neutrophils % ESTHELA ( [facility]) mono % 5.8 % 0.0-5.0 Above high normal [place] % ESTHELA ([facility]) immature granulocyte % 0.4 % 0-3.0 Immature Gran ulocyte % ESTHELA ([facility]) nucleated red blood cell % 0.0 % 0-0 Nucleated Red Blood Cell % TRAM ([facility]) neutrophils # 4.1 10 1.5-8.5 Neutrophils # ESTHELA ( [facility]) lymph # 1.9 10 1.5-5.0 Lymph # ESTHELA ([facility]) mono # 0.4 10 0.0-0.8 [place] # ESTHELA ([facility]) baso # 0.0 10 0.0-0.2 Baso # ESTHELA ([facility]) eos # 0.2 10 0.0-0.5 Eos # ESTHELA ([facility]) ID Date Data Source [id number] 02/01/2020 12:10:00 PM EST TRAM ([facility]) Name Value Range Interpretation Code Description Data Libia rce(s) Supporting Document(s) HCG, serum quantitative < 1.0 HCG, Serum Q uantitative TRAM ([facility]) ID Date Data Source [id number] 02/01/2020 12:10:00 PM EST TRAM ([facility]) Name Value Range Interpretation Code Description Data Libia rce(s) Supporting Document(s) thyroid stimulating hormone 2.300 uIU/mL 0.463-3.98 Thyroid Stimulating Hormone TRAM ([facility]) ID Date Data Source [id number] 02/01/2020 12:10:00 PM EST ESTHELA ([facility]) Name Value Range Interpretation Code Description Data Libia rce(s) Supporting Document(s) glucose, fasting 85 mg/dL 70-100 Glucose, Fasting AT AMY ([facility]) creatinine for GFR 0.76 mg/dL 0.55-1.30 Creatinine for GF R ESTHELA ([facility]) sodium level 141 mEq/L 136-145 Sodium Level ESTHELA ([facility]) potassium serum 4.1 mEq/L 3.5-5.1 Potassium Serum ATHE ([facility]) blood urea nitrogen 10 mg/dL 7-18 Blood Urea Nitro gen ESTHELA ([facility]) carbon dioxide level 28 mEq/L 21-32 Carbon Dioxide Level TRAM ([facility]) anion gap 6 mEq/L 8-16 Below low normal Anion Gap ESTHELA ( [facility]) chloride level 107 mEq/L 98-107 Chloride Level TRAM ([facility]) calcium level 9.7 mg/dL 8.5-10.1 Calcium Level ESTHELA ( [facility]) alkaline phosphatase 73 U/L 45-117 Alkaline Phosph atase ESTHELA ([facility]) bilirubin,total 0.5 mg/dL 0.2-1.0 Bilirubin,total ATHE ([facility]) ALT/SGPT 13 U/L 12-78 ALT/SGPT ESTHELA ([facility]) AST/SGOT 4 U/L 7-37 Below low normal AST/SGOT ESTHELA ( [facility]) albumin/globulin ratio 1.2-2.2 Albumin/globu dyana Ratio ESTHELA ([facility]) albumin 3.9 gm/dL 3.2-5.2 Albumin ESTHELA ([facility]) total protein 7.1 gm/dL 6.4-8.2 Total Protein ESTHELA ( [facility]) ID Date Data Source [id number] 02/01/2020 12:10:00 PM EST ESTHELA ([facility]) Name Value Range Interpretation Code Description Data Libia rce(s) Supporting Document(s) red blood count 4.43 10 4.00-5.40 Red Blood Count ATHE NA ([facility]) hemoglobin 12.5 g/dL 12.0-15.5 Hemoglobin ESTHELA ([facility]) hematocrit 38.8 % 36.0-47.0 Hematocrit ESTHELA ([facility]) white blood count 6.7 10 4.0-10.0 White Blood Count ESTHELA ([facility]) platelet count, automated 271 10 150-450 Platelet C ount, Automated ESTHELA ([facility]) mean corpuscular hemoglobin 28.2 pg 27.0-33.0 Mean Cor puscular Hemoglobin ESTHLEA ([facility]) red cell distribution width 13.5 % 11.5-14.5 Red Cell Distribution Width ESTHELA ([facility]) mean corpuscular volume 87.6 fL 80.0-96.0 Mean Corpusc ular Volume ESTHELA ([facility]) mean corpuscular HGB conc 32.2 g/dL 32.0-36.5 Mean Corpu scular HGB Conc ESTHELA ([facility]) eos % 2.8 % 0.0-3.0 Eos % ESTHELA ([facility]) baso % 0.6 % 0.0-1.0 Baso % ESTHELA ([facility]) mono % 5.8 % 0.0-5.0 Above high normal [place] % ESTHELA ([facility]) lymph % 28.9 % 24.0-44.0 Lymph % ESTHELA ([facility]) neutrophils % 61.5 % 36.0-66.0 Neutrophils % ESTHELA ( [facility]) neutrophils # 4.1 10 1.5-8.5 Neutrophils # ESTHELA ( [facility]) nucleated red blood cell % 0.0 % 0-0 Nucleated Red Blood Cell % ESTHELA ([facility]) immature granulocyte % 0.4 % 0-3.0 Immature Gran ulocyte % ESTHELA ([facility]) lymph # 1.9 10 1.5-5.0 Lymph # ESTHELA ([facility]) mono # 0.4 10 0.0-0.8 [place] # ESTHELA ([facility]) eos # 0.2 10 0.0-0.5 Eos # ESTHELA ([facility]) baso # 0.0 10 0.0-0.2 Baso # ESTHELA ([facility]) ID Date Data Source [id number] 02/01/2020 12:10:00 PM EST ESTHELA ([facility]) Name Value Range Interpretation Code Description Data Libia rce(s) Supporting Document(s) HCG, serum quantitative < 1.0 HCG, Serum Q uantitative TRAM ([facility]) ID Date Data Source [id number] 02/01/2020 12:10:00 PM EST ESTHELA ([facility]) Name Value Range Interpretation Code Description Data Libia rce(s) Supporting Document(s) thyroid stimulating hormone 2.300 uIU/mL 0.463-3.98 Thyroid Stimulating Hormone TRAM ([facility]) ID Date Data Source [id number] 02/01/2020 12:10:00 PM EST ESTHELA ([facility]) Name Value Range Interpretation Code Description Data Libia rce(s) Supporting Document(s) glucose, fasting 85 mg/dL 70-100 Glucose, Fasting AT [facility]) blood urea nitrogen 10 mg/dL 7-18 Blood Urea Nitro gen TRAM ([facility]) creatinine for GFR 0.76 mg/dL 0.55-1.30 Creatinine for GF R TRAM ([facility]) sodium level 141 mEq/L 136-145 Sodium Level ESTHELA ([facility]) carbon dioxide level 28 mEq/L 21-32 Carbon Dioxide Level TRAM ([facility]) chloride level 107 mEq/L 98-107 Chloride Level TRAM ([facility]) potassium serum 4.1 mEq/L 3.5-5.1 Potassium Serum ATHE NA ([facility]) anion gap 6 mEq/L 8-16 Below low normal Anion Gap TRAM ( [facility]) ALT/SGPT 13 U/L 12-78 ALT/SGPT ESTHELA ([facility]) bilirubin,total 0.5 mg/dL 0.2-1.0 Bilirubin,total ATHE NA ([facility]) alkaline phosphatase 73 U/L 45-117 Alkaline Phosph atase ESTHELA ([facility]) calcium level 9.7 mg/dL 8.5-10.1 Calcium Level ESTHELA ( [facility]) AST/SGOT 4 U/L 7-37 Below low normal AST/SGOT ESTHELA ( [facility]) albumin 3.9 gm/dL 3.2-5.2 Albumin ESTHELA ([facility]) total protein 7.1 gm/dL 6.4-8.2 Total Protein ESTHELA ( [facility]) albumin/globulin ratio 1.2-2.2 Albumin/globu dyana Ratio ESTHELA ([facility]) ID Date Data Source [id number] 02/01/2020 12:10:00 PM EST ESTHELA ([facility]) Name Value Range Interpretation Code Description Data Libia rce(s) Supporting Document(s) white blood count 6.7 10 4.0-10.0 White Blood Count ESTHELA ([facility]) hemoglobin 12.5 g/dL 12.0-15.5 Hemoglobin ESTHELA ([facility]) hematocrit 38.8 % 36.0-47.0 Hematocrit ESTHELA ([facility]) red blood count 4.43 10 4.00-5.40 Red Blood Count ATHE NA ([facility]) red cell distribution width 13.5 % 11.5-14.5 Red Cell Distribution Width ESTHELA ([facility]) mean corpuscular hemoglobin 28.2 pg 27.0-33.0 Mean Cor puscular Hemoglobin ESTHELA ([facility]) mean corpuscular volume 87.6 fL 80.0-96.0 Mean Corpusc ular Volume ESTHELA ([facility]) mean corpuscular HGB conc 32.2 g/dL 32.0-36.5 Mean Corpu scular HGB Conc ESTHELA ([facility]) platelet count, automated 271 10 150-450 Platelet C ount, Automated ESTHELA ([facility]) neutrophils % 61.5 % 36.0-66.0 Neutrophils % ESTHELA ( [facility]) lymph % 28.9 % 24.0-44.0 Lymph % TRAM ([facility]) mono % 5.8 % 0.0-5.0 Above high normal [place] % ESTHELA ([facility]) baso % 0.6 % 0.0-1.0 Baso % TRAM ([facility]) immature granulocyte % 0.4 % 0-3.0 Immature Gran ulocyte % TRAM ([facility]) nucleated red blood cell % 0.0 % 0-0 Nucleated Red Blood Cell % TRAM ([facility]) eos % 2.8 % 0.0-3.0 Eos % TRAM ([facility]) lymph # 1.9 10 1.5-5.0 Lymph # TRAM ([facility]) neutrophils # 4.1 10 1.5-8.5 Neutrophils # ESTHELA ( [facility]) mono # 0.4 10 0.0-0.8 [place] # ESTHELA ([facility]) eos # 0.2 10 0.0-0.5 Eos # TRAM ([facility]) baso # 0.0 10 0.0-0.2 Baso # TRAM ([facility]) ID Date Data Source [id number] 02/01/2020 12:10:00 PM EST TRAM ([facility]) Name Value Range Interpretation Code Description Data Libia rce(s) Supporting Document(s) HCG, serum quantitative < 1.0 HCG, Serum Q uantitative [facility]) ID Date Data Source [id number] 02/01/2020 12:10:00 PM EST TRAM ([facility]) Name Value Range Interpretation Code Description Data Libia rce(s) Supporting Document(s) thyroid stimulating hormone 2.300 uIU/mL 0.463-3.98 Thyroid Stimulating Hormone ESTHELA ([facility]) ID Date Data Source [id number] 02/01/2020 12:10:00 PM EST ESTHELA ([facility]) Name Value Range Interpretation Code Description Data Libia rce(s) Supporting Document(s) glucose, fasting 85 mg/dL 70-100 Glucose, Fasting AT AMY ([facility]) blood urea nitrogen 10 mg/dL 7-18 Blood Urea Nitro gen ESTHELA ([facility]) creatinine for GFR 0.76 mg/dL 0.55-1.30 Creatinine for GF R ESTHELA ([facility]) potassium serum 4.1 mEq/L 3.5-5.1 Potassium Serum ATHE ([facility]) sodium level 141 mEq/L 136-145 Sodium Level ESTHELA (No [facility]) chloride level 107 mEq/L 98-107 Chloride Level ESTHELA ([facility]) calcium level 9.7 mg/dL 8.5-10.1 Calcium Level ESTHELA ( [facility]) anion gap 6 mEq/L 8-16 Below low normal Anion Gap ESTHELA ( [facility]) carbon dioxide level 28 mEq/L 21-32 Carbon Dioxide Level ESTHELA ([facility]) alkaline phosphatase 73 U/L 45-117 Alkaline Phosph atase ESTHELA ([facility]) AST/SGOT 4 U/L 7-37 Below low normal AST/SGOT ESTHELA ( [facility]) bilirubin,total 0.5 mg/dL 0.2-1.0 Bilirubin,total ATHE ([facility]) ALT/SGPT 13 U/L 12-78 ALT/SGPT ESTHELA ([facility]) total protein 7.1 gm/dL 6.4-8.2 Total Protein ESTHELA ( [facility]) albumin 3.9 gm/dL 3.2-5.2 Albumin ESTHELA ([facility]) albumin/globulin ratio 1.2-2.2 Albumin/globu dyana Ratio ESTHELA ([facility]) ID Date Data Source [id number] 02/01/2020 12:10:00 PM EST ESTHELA ([facility]) Name Value Range Interpretation Code Description Data Libia rce(s) Supporting Document(s) hemoglobin 12.5 g/dL 12.0-15.5 Hemoglobin ESTHELA ([facility]) white blood count 6.7 10 4.0-10.0 White Blood Count ESTHELA ([facility]) red blood count 4.43 10 4.00-5.40 Red Blood Count ATHE NA ([facility]) mean corpuscular hemoglobin 28.2 pg 27.0-33.0 Mean Cor puscular Hemoglobin ESTHELA ([facility]) hematocrit 38.8 % 36.0-47.0 Hematocrit ESTHELA ([facility]) mean corpuscular volume 87.6 fL 80.0-96.0 Mean Corpusc ular Volume ESTHELA ([facility]) red cell distribution width 13.5 % 11.5-14.5 Red Cell Distribution Width ESTHELA ([facility]) platelet count, automated 271 10 150-450 Platelet C ount, Automated ESTHELA ([facility]) mean corpuscular HGB conc 32.2 g/dL 32.0-36.5 Mean Corpu scular HGB Conc ESTHELA ([facility]) neutrophils % 61.5 % 36.0-66.0 Neutrophils % ESTHELA ( [facility]) lymph % 28.9 % 24.0-44.0 Lymph % ESTHELA ([facility]) mono % 5.8 % 0.0-5.0 Above high normal [place] % TRAM ([facility]) immature granulocyte % 0.4 % 0-3.0 Immature Gran ulocyte % ESTHELA ([facility]) eos % 2.8 % 0.0-3.0 Eos % ESTHELA ([facility]) baso % 0.6 % 0.0-1.0 Baso % ESTHELA ([facility]) neutrophils # 4.1 10 1.5-8.5 Neutrophils # ESTHELA ( [facility]) lymph # 1.9 10 1.5-5.0 Lymph # ESTHELA ([facility]) mono # 0.4 10 0.0-0.8 [place] # ESTHELA ([facility]) nucleated red blood cell % 0.0 % 0-0 Nucleated Red Blood Cell % ESTHELA ([facility]) eos # 0.2 10 0.0-0.5 Eos # ESTHELA ([facility]) baso # 0.0 10 0.0-0.2 Baso # ESTHELA ([facility]) ID Date Data Source [id number] 02/01/2020 12:10:00 PM EST ESTHELA ([facility]) Name Value Range Interpretation Code Description Data Libia rce(s) Supporting Document(s) HCG, serum quantitative < 1.0 HCG, Serum Q uantitative TRAM ([facility]) ID Date Data Source [id number] 02/01/2020 12:10:00 PM EST ESTHELA ([facility]) Name Value Range Interpretation Code Description Data Libia rce(s) Supporting Document(s) thyroid stimulating hormone 2.300 uIU/mL 0.463-3.98 Thyroid Stimulating Hormone TRAM ([facility]) ID Date Data Source [id number] 02/01/2020 12:10:00 PM EST ESTHELA ([facility]) Name Value Range Interpretation Code Description Data Libia rce(s) Supporting Document(s) glucose, fasting 85 mg/dL 70-100 Glucose, Fasting AT AMY ([facility]) blood urea nitrogen 10 mg/dL 7-18 Blood Urea Nitro gen ESTHELA ([facility]) sodium level 141 mEq/L 136-145 Sodium Level ESTHELA ([facility]) creatinine for GFR 0.76 mg/dL 0.55-1.30 Creatinine for GF R TRAM ([facility]) potassium serum 4.1 mEq/L 3.5-5.1 Potassium Serum ATHE NA ([facility]) chloride level 107 mEq/L 98-107 Chloride Level TRAM ([facility]) carbon dioxide level 28 mEq/L 21-32 Carbon Dioxide Level ESTHELA ([facility]) AST/SGOT 4 U/L 7-37 Below low normal AST/SGOT ESTHELA ( [facility]) calcium level 9.7 mg/dL 8.5-10.1 Calcium Level ESTHELA ( [facility]) anion gap 6 mEq/L 8-16 Below low normal Anion Gap ESTHELA ( [facility]) ALT/SGPT 13 U/L 12-78 ALT/SGPT ESTHELA ([facility]) alkaline phosphatase 73 U/L 45-117 Alkaline Phosph atase ESTHELA ([facility]) total protein 7.1 gm/dL 6.4-8.2 Total Protein ESTHELA ( [facility]) bilirubin,total 0.5 mg/dL 0.2-1.0 Bilirubin,total ATHE [facility]) albumin 3.9 gm/dL 3.2-5.2 Albumin ESTHELA ([facility]) albumin/globulin ratio 1.2-2.2 Albumin/globu dyana Ratio ESTHELA ([facility]) ID Date Data Source [id number] 12/06/2019 10:26:43 AM EDT [facility] ([facility]) Name Value Range Interpretation Code Description Data Libia rce(s) Supporting Document(s) NegativeLot: [id number]: 02/25/2021 High Sensitivity Urine Test [facility] ([facility]) Procedure Social History Code Duration Value Status Description Data Source(s ) 09/23/2020 12:00:00 AM EDT Occasional cigarette smoker completed Occasional cigarette smoker [facility] ([facility]) Smoking 09/23/2020 12:00:00 AM EDT Light tobacco smoker comple [facility]annan Light tobacco smoker [facility] ([facility]) Vital Signs ID Date Data Source UNK Name Value Range Interpretation Code Description Data Source(s) Diastolic blood pressure 70 mm[Hg] 70 mm[Hg] [facility] ([facility]) Body mass index (BMI) [Ratio] 20.32 kg/m2 20.32 kg/m2 [facility] ([facility]) Systolic blood pressure 112 mm[Hg] 112 mm[Hg] N [facility] ([facility]) Body height 162.56 cm 162.56 cm [facility] ([facility]) Body weight 53.705 kg 53.705 kg [facility] ([facility]) Body height 64 [in_i] 64 [in_i] [facility] ([facility]) Body height 64 [in_i] 64 [in_i] [facility] ([facility]) Body height 64 [in_i] 64 [in_i] [facility] ([facility]) Body height 64 [in_i] 64 [in_i] [facility] ([facility]) Body height 64 [in_i] 64 [in_i] [facility] ([facility]) Diastolic blood pressure 69 mm[Hg] 69 mm[Hg] [facility] ([facility]) Body height 64 [in_i] 64 [in_i] [facility] ([facility]) Body mass index (BMI) [Ratio] 20.9 kg/m2 20.9 k g/m2 [facility] ([facility]) Systolic blood pressure 106 mm[Hg] 106 mm[Hg] [facility] ([facility]) Body weight 1944 [oz_av] 1944 [oz_av] [facility] ([facility]) Diastolic blood pressure 69 mm[Hg] 69 mm[Hg] [facility] ([facility]) Body height 64 [in_i] 64 [in_i] [facility] ([facility]) Body mass index (BMI) [Ratio] 20.9 kg/m2 20.9 k g/m2 [facility] ([facility]) Systolic blood pressure 106 mm[Hg] 106 mm[Hg] [facility] ([facility]) Body weight 1944 [oz_av] 1944 [oz_av] [facility] ([facility]) Diastolic blood pressure 69 mm[Hg] 69 mm[Hg] [facility] ([facility]) Body height 64 [in_i] 64 [in_i] [facility] ([facility]) Body mass index (BMI) [Ratio] 20.9 kg/m2 20.9 k g/m2 [facility] ([facility]) Systolic blood pressure 106 mm[Hg] 106 mm[Hg] A [facility] ([facility]) Body weight 1944 [oz_av] 1944 [oz_av] [facility] ([facility]) Diastolic blood pressure 69 mm[Hg] 69 mm[Hg] [facility] ([facility]) Body height 64 [in_i] 64 [in_i] [facility] ([facility]) Body mass index (BMI) [Ratio] 20.9 kg/m2 20.9 k g/m2 [facility] ([facility]) Systolic blood pressure 106 mm[Hg] 106 mm[Hg] [facility] Body weight 1944 [oz_av] 1944 [oz_av] [facility] ([facility]) Body weight 1944 [oz_av] 1944 [oz_av] [facility] ([facility]) Diastolic blood pressure 69 mm[Hg] 69 mm[Hg] [facility] ([facility]) Body height 64 [in_i] 64 [in_i] [facility] ([facility]) Body mass index (BMI) [Ratio] 20.9 kg/m2 20.9 k g/m2 [facility] ([facility]) Systolic blood pressure 106 mm[Hg] 106 mm[Hg] [facility] Diastolic blood pressure 69 mm[Hg] 69 mm[Hg] [facility] ([facility]) Body height 64 [in_i] 64 [in_i] [facility] ([facility]) Body mass index (BMI) [Ratio] 20.9 kg/m2 20.9 k g/m2 [facility] ([facility]) Systolic blood pressure 106 mm[Hg] 106 mm[Hg] A [facility] ([facility]) Body weight 1944 [oz_av] 1944 [oz_av] [facility] ([facility]) Diastolic blood pressure 69 mm[Hg] 69 mm[Hg] [facility] ([facility]) Body height 64 [in_i] 64 [in_i] [facility] ([facility]) Body mass index (BMI) [Ratio] 20.9 kg/m2 20.9 k g/m2 [facility] ([facility]) Systolic blood pressure 106 mm[Hg] 106 mm[Hg] A [facility] ([facility]) Body weight 1944 [oz_av] 1944 [oz_av] [facility] ([facility]) Diastolic blood pressure 69 mm[Hg] 69 mm[Hg] [facility] ([facility]) Body height 64 [in_i] 64 [in_i] [facility] ([facility]) Body mass index (BMI) [Ratio] 20.9 kg/m2 20.9 k g/m2 [facility] ([facility]) Systolic blood pressure 106 mm[Hg] 106 mm[Hg] A [facility] ([facility]) Body weight 1944 [oz_av] 1944 [oz_av] [facility] ([facility]) Diastolic blood pressure 69 mm[Hg] 69 mm[Hg] [facility] ([facility]) Body height 64 [in_i] 64 [in_i] [facility] ([facility]) Body mass index (BMI) [Ratio] 20.9 kg/m2 20.9 k g/m2 [facility] ([facility]) Systolic blood pressure 106 mm[Hg] 106 mm[Hg] A [facility] ([facility]) Body weight 1944 [oz_av] 1944 [oz_av] [facility] ([facility]) Body weight 58.967 kg 58.967 kg [facility] ([facility]) Systolic blood pressure 118 mm[Hg] 118 mm[Hg] N [facility] ([facility]) Diastolic blood pressure 67 mm[Hg] 67 mm[Hg] [facility] ([facility]) Body mass index (BMI) [Ratio] 22.31 kg/m2 22.31 kg/m2 [facility] ([facility]) Body height 162.56 cm 162.56 cm [facility] ([facility]) Diastolic blood pressure 57 mm[Hg] 57 mm[Hg] [facility] ([facility]) Body height 64 [in_i] 64 [in_i] [facility] ([facility]) Body mass index (BMI) [Ratio] 48.1 kg/m2 48.1 k g/m2 [facility] ([facility]) Systolic blood pressure 108 mm[Hg] 108 mm[Hg] A [facility] ([facility]) Body weight 4480 [oz_av] 4480 [oz_av] [facility] ([facility]) Diastolic blood pressure 57 mm[Hg] 57 mm[Hg] [facility] ([facility]) Body height 64 [in_i] 64 [in_i] [facility] ([facility]) Body mass index (BMI) [Ratio] 48.1 kg/m2 48.1 k g/m2 [facility] ([facility]) Systolic blood pressure 108 mm[Hg] 108 mm[Hg] A [facility] ([facility]) Body weight 4480 [oz_av] 4480 [oz_av] [facility] ([facility]) Diastolic blood pressure 57 mm[Hg] 57 mm[Hg] [facility] ([facility]) Body height 64 [in_i] 64 [in_i] [facility] ([facility]) Body mass index (BMI) [Ratio] 48.1 kg/m2 48.1 k g/m2 [facility] ([facility]) Systolic blood pressure 108 mm[Hg] 108 mm[Hg] A [facility] ([facility]) Body weight 4480 [oz_av] 4480 [oz_av] [facility] ([facility]) Body weight 4480 [oz_av] 4480 [oz_av] [facility] ([facility]) Diastolic blood pressure 57 mm[Hg] 57 mm[Hg] [facility] ([facility]) Body height 64 [in_i] 64 [in_i] [facility] ([facility]) Body mass index (BMI) [Ratio] 48.1 kg/m2 48.1 k g/m2 [facility] ([facility]) Systolic blood pressure 108 mm[Hg] 108 mm[Hg] A [facility] ([facility]) Diastolic blood pressure 57 mm[Hg] 57 mm[Hg] [facility] ([facility]) Body height 64 [in_i] 64 [in_i] [facility] ([facility]) Body mass index (BMI) [Ratio] 48.1 kg/m2 48.1 k g/m2 [facility] ([facility]) Systolic blood pressure 108 mm[Hg] 108 mm[Hg] A [facility] ([facility]) Body weight 4480 [oz_av] 4480 [oz_av] [facility] ([facility]) Body mass index (BMI) [Ratio] 48.1 kg/m2 48.1 k g/m2 [facility] ([facility]) Diastolic blood pressure 57 mm[Hg] 57 mm[Hg] [facility] ([facility]) Body height 64 [in_i] 64 [in_i] [facility] ([facility]) Systolic blood pressure 108 mm[Hg] 108 mm[Hg] A [facility] ([facility]) Body weight 4480 [oz_av] 4480 [oz_av] [facility] ([facility]) Diastolic blood pressure 57 mm[Hg] 57 mm[Hg] [facility] ([facility]) Body height 64 [in_i] 64 [in_i] [facility] ([facility]) Body mass index (BMI) [Ratio] 48.1 kg/m2 48.1 k g/m2 [facility] ([facility]) Systolic blood pressure 108 mm[Hg] 108 mm[Hg] A [facility] ([facility]) Body weight 4480 [oz_av] 4480 [oz_av] [facility] ([facility]) Diastolic blood pressure 57 mm[Hg] 57 mm[Hg] [facility] ([facility]) Body height 64 [in_i] 64 [in_i] [facility] ([facility]) Body mass index (BMI) [Ratio] 48.1 kg/m2 48.1 k g/m2 [facility] ([facility]) Systolic blood pressure 108 mm[Hg] 108 mm[Hg] A [facility] ([facility]) Body weight 4480 [oz_av] 4480 [oz_av] [facility] ([facility]) Diastolic blood pressure 57 mm[Hg] 57 mm[Hg] [facility] ([facility]) Body height 64 [in_i] 64 [in_i] [facility] ([facility]) Body mass index (BMI) [Ratio] 48.1 kg/m2 48.1 k g/m2 [facility] ([facility]) Systolic blood pressure 108 mm[Hg] 108 mm[Hg] A [facility] ([facility]) Body weight 4480 [oz_av] 4480 [oz_av] [facility] ([facility]) Diastolic blood pressure 57 mm[Hg] 57 mm[Hg] [facility] ([facility]) Body height 64 [in_i] 64 [in_i] [facility] ([facility]) Body mass index (BMI) [Ratio] 48.1 kg/m2 48.1 k g/m2 [facility] ([facility]) Systolic blood pressure 108 mm[Hg] 108 mm[Hg] A [facility] ([facility]) Body weight 4480 [oz_av] 4480 [oz_av] [facility] ([facility]) Body height 162.56 cm 162.56 cm [facility] ([facility]) Body weight 59.874 kg 59.874 kg [facility] ([facility]) Systolic blood pressure 108 mm[Hg] 108 mm[Hg] N [facility] ([facility]) Diastolic blood pressure 70 mm[Hg] 70 mm[Hg] [facility] ([facility]) Body mass index (BMI) [Ratio] 22.66 kg/m2 22.66 kg/m2 [facility] ([facility]) Body height 64 [in_i] 64 [in_i] [facility] ([facility]) Body height 64 [in_i] 64 [in_i] [facility] ([facility]) Body height 64 [in_i] 64 [in_i] [facility] ([facility]) Body height 64 [in_i] 64 [in_i] [facility] ([facility]) Body height 64 [in_i] 64 [in_i] [facility] ([facility]) Body height 64 [in_i] 64 [in_i] [facility] ([facility]) Body height 64 [in_i] 64 [in_i] [facility] ([facility]) Body height 64 [in_i] 64 [in_i] [facility] ([facility]) Body height 64 [in_i] 64 [in_i] [facility] ([facility]) Body height 64 [in_i] 64 [in_i] [facility] ([facility]) Body height 64 [in_i] 64 [in_i] [facility] ([facility]) Body height 64 [in_i] 64 [in_i] [facility] ([facility]) Body height 64 [in_i] 64 [in_i] [facility] ([facility]) Body height 64 [in_i] 64 [in_i] [facility] ([facility]) Body height 64 [in_i] 64 [in_i] [facility] ([facility]) Body height 64 [in_i] 64 [in_i] [facility] ([facility]) Body height 64 [in_i] 64 [in_i] [facility] ([facility]) Body height 64 [in_i] 64 [in_i] [facility] ([facility]) Body height 64 [in_i] 64 [in_i] [facility] ([facility]) Body height 64 [in_i] 64 [in_i] [facility] ([facility]) Body height 64 [in_i] 64 [in_i] [facility] ([facility]) Body height 64 [in_i] 64 [in_i] [facility] ([facility]) Body height 64 [in_i] 64 [in_i] [facility] ([facility]) Body height 162.56 cm 162.56 cm [facility] ([facility]) Body weight 62.142 kg 62.142 kg [facility] ([facility]) Systolic blood pressure 112 mm[Hg] 112 mm[Hg] N [facility] ([facility]) Diastolic blood pressure 76 mm[Hg] 76 mm[Hg] [facility] ([facility]) Body mass index (BMI) [Ratio] 23.52 kg/m2 23.52 kg/m2 [facility] ([facility]) Diastolic blood pressure 74 mm[Hg] 74 mm[Hg] [facility] ([facility]) Body height 64 [in_i] 64 [in_i] [facility] ([facility]) Body mass index (BMI) [Ratio] 22.7 kg/m2 22.7 k g/m2 [facility] ([facility]) Systolic blood pressure 115 mm[Hg] 115 mm[Hg] [facility] Body weight 2120 [oz_av] 2120 [oz_av] [facility] ([facility]) Diastolic blood pressure 74 mm[Hg] 74 mm[Hg] [facility] ([facility]) Body height 64 [in_i] 64 [in_i] [facility] ([facility]) Body mass index (BMI) [Ratio] 22.7 kg/m2 22.7 k g/m2 [facility] ([facility]) Systolic blood pressure 115 mm[Hg] 115 mm[Hg] [facility] ([facility]) Body weight 2120 [oz_av] 2120 [oz_av] [facility] ([facility]) Systolic blood pressure 115 mm[Hg] 115 mm[Hg] [facility] Body weight 2120 [oz_av] 2120 [oz_av] [facility] ([facility]) Diastolic blood pressure 74 mm[Hg] 74 mm[Hg] [facility] ([facility]) Body height 64 [in_i] 64 [in_i] [facility] ([facility]) Body mass index (BMI) [Ratio] 22.7 kg/m2 22.7 k g/m2 [facility] ([facility]) Diastolic blood pressure 74 mm[Hg] 74 mm[Hg] [facility] ([facility]) Body height 64 [in_i] 64 [in_i] [facility] ([facility]) Body mass index (BMI) [Ratio] 22.7 kg/m2 22.7 k g/m2 [facility] ([facility]) Systolic blood pressure 115 mm[Hg] 115 mm[Hg] [facility] Body weight 2120 [oz_av] 2120 [oz_av] [facility] ([facility]) Diastolic blood pressure 74 mm[Hg] 74 mm[Hg] [facility] ([facility]) Body height 64 [in_i] 64 [in_i] [facility] ([facility]) Body mass index (BMI) [Ratio] 22.7 kg/m2 22.7 k g/m2 [facility] ([facility]) Systolic blood pressure 115 mm[Hg] 115 mm[Hg] [facility] Body weight 2120 [oz_av] 2120 [oz_av] [facility] ([facility]) Diastolic blood pressure 74 mm[Hg] 74 mm[Hg] [facility] ([facility]) Body height 64 [in_i] 64 [in_i] [facility] ([facility]) Body mass index (BMI) [Ratio] 22.7 kg/m2 22.7 k g/m2 [facility] ([facility]) Systolic blood pressure 115 mm[Hg] 115 mm[Hg] [facility] ([facility]) Body weight 2120 [oz_av] 2120 [oz_av] [facility] ([facility]) Diastolic blood pressure 74 mm[Hg] 74 mm[Hg] [facility] ([facility]) Body height 64 [in_i] 64 [in_i] [facility] ([facility]) Body mass index (BMI) [Ratio] 22.7 kg/m2 22.7 k g/m2 [facility] ([facility]) Systolic blood pressure 115 mm[Hg] 115 mm[Hg] [facility] Body weight 2120 [oz_av] 2120 [oz_av] [facility] ([facility]) Diastolic blood pressure 74 mm[Hg] 74 mm[Hg] [facility] ([facility]) Body height 64 [in_i] 64 [in_i] [facility] ([facility]) Body mass index (BMI) [Ratio] 22.7 kg/m2 22.7 k g/m2 [facility] ([facility]) Systolic blood pressure 115 mm[Hg] 115 mm[Hg] [facility] Body weight 2120 [oz_av] 2120 [oz_av] [facility] ([facility]) Diastolic blood pressure 74 mm[Hg] 74 mm[Hg] [facility] ([facility]) Body height 64 [in_i] 64 [in_i] [facility] ([facility]) Body mass index (BMI) [Ratio] 22.7 kg/m2 22.7 k g/m2 [facility] ([facility]) Systolic blood pressure 115 mm[Hg] 115 mm[Hg] [facility] Body weight 2120 [oz_av] 2120 [oz_av] [facility] ([facility]) Body mass index (BMI) [Ratio] 22.7 kg/m2 22.7 k g/m2 [facility] ([facility]) Body height 64 [in_i] 64 [in_i] [facility] ([facility]) Systolic blood pressure 115 mm[Hg] 115 mm[Hg] [facility] Body weight 2120 [oz_av] 2120 [oz_av] [facility] ([facility]) Diastolic blood pressure 74 mm[Hg] 74 mm[Hg] [facility] ([facility]) Diastolic blood pressure 74 mm[Hg] 74 mm[Hg] [facility] ([facility]) Body height 64 [in_i] 64 [in_i] [facility] ([facility]) Body mass index (BMI) [Ratio] 22.7 kg/m2 22.7 k g/m2 [facility] ([facility]) Systolic blood pressure 115 mm[Hg] 115 mm[Hg] [facility] Body weight 2120 [oz_av] 2120 [oz_av] [facility] ([facility]) Body mass index (BMI) [Ratio] 22.7 kg/m2 22.7 k g/m2 [facility] ([facility]) Diastolic blood pressure 74 mm[Hg] 74 mm[Hg] [facility] ([facility]) Body height 64 [in_i] 64 [in_i] [facility] ([facility]) Systolic blood pressure 115 mm[Hg] 115 mm[Hg] [facility] Body weight 2120 [oz_av] 2120 [oz_av] [facility] ([facility]) Diastolic blood pressure 74 mm[Hg] 74 mm[Hg] [facility] ([facility]) Body height 64 [in_i] 64 [in_i] [facility] ([facility]) Body mass index (BMI) [Ratio] 22.7 kg/m2 22.7 k g/m2 [facility] ([facility]) Systolic blood pressure 115 mm[Hg] 115 mm[Hg] [facility] ([facility]) Body weight 2120 [oz_av] 2120 [oz_av] [facility] ([facility]) Body height 162.56 cm 162.56 cm [facility] ([facility]) Body weight 58.423 kg 58.423 kg [facility] ([facility]) Systolic blood pressure 122 mm[Hg] 122 mm[Hg] N [facility] ([facility]) Diastolic blood pressure 76 mm[Hg] 76 mm[Hg] [facility] ([facility]) Body mass index (BMI) [Ratio] 22.11 kg/m2 22.11 kg/m2 [facility] ([facility]) Diastolic blood pressure 76 mm[Hg] 76 mm[Hg] [facility] ([facility]) Body height 64 [in_i] 64 [in_i] [facility] ([facility]) Body mass index (BMI) [Ratio] 22.9 kg/m2 22.9 k g/m2 [facility] ([facility]) Systolic blood pressure 113 mm[Hg] 113 mm[Hg] [facility] ([facility]) Body weight 2137.6 [oz_av] 2137.6 [oz_av] ATHEN A ([facility]) Diastolic blood pressure 76 mm[Hg] 76 mm[Hg] [facility] ([facility]) Body height 64 [in_i] 64 [in_i] [facility] ([facility]) Body mass index (BMI) [Ratio] 22.9 kg/m2 22.9 k g/m2 [facility] ([facility]) Systolic blood pressure 113 mm[Hg] 113 mm[Hg] [facility] ([facility]) Body weight 2137.6 [oz_av] 2137.6 [oz_av] ATHEN A ([facility]) Diastolic blood pressure 76 mm[Hg] 76 mm[Hg] [facility] ([facility]) Body height 64 [in_i] 64 [in_i] [facility] ([facility]) Body mass index (BMI) [Ratio] 22.9 kg/m2 22.9 k g/m2 [facility] ([facility]) Systolic blood pressure 113 mm[Hg] 113 mm[Hg] [facility] Body weight 2137.6 [oz_av] 2137.6 [oz_av] ATHEN A ([facility]) Systolic blood pressure 113 mm[Hg] 113 mm[Hg] [facility] Diastolic blood pressure 76 mm[Hg] 76 mm[Hg] [facility] ([facility]) Body height 64 [in_i] 64 [in_i] [facility] ([facility]) Body mass index (BMI) [Ratio] 22.9 kg/m2 22.9 k g/m2 [facility] ([facility]) Body weight 2137.6 [oz_av] 2137.6 [oz_av] ATHEN A ([facility]) Diastolic blood pressure 76 mm[Hg] 76 mm[Hg] [facility] ([facility]) Body height 64 [in_i] 64 [in_i] [facility] ([facility]) Body mass index (BMI) [Ratio] 22.9 kg/m2 22.9 k g/m2 [facility] ([facility]) Systolic blood pressure 113 mm[Hg] 113 mm[Hg] A [facility] ([facility]) Body weight 2137.6 [oz_av] 2137.6 [oz_av] ATHEN A ([facility]) Diastolic blood pressure 76 mm[Hg] 76 mm[Hg] [facility] ([facility]) Body height 64 [in_i] 64 [in_i] [facility] ([facility]) Body mass index (BMI) [Ratio] 22.9 kg/m2 22.9 k g/m2 [facility] ([facility]) Systolic blood pressure 113 mm[Hg] 113 mm[Hg] [facility] Body weight 2137.6 [oz_av] 2137.6 [oz_av] ATHEN A ([facility]) Body height 64 [in_i] 64 [in_i] [facility] ([facility]) Body mass index (BMI) [Ratio] 22.9 kg/m2 22.9 k g/m2 [facility] ([facility]) Systolic blood pressure 113 mm[Hg] 113 mm[Hg] [facility] Body weight 2137.6 [oz_av] 2137.6 [oz_av] ATHEN A ([facility]) Diastolic blood pressure 76 mm[Hg] 76 mm[Hg] [facility] ([facility]) Diastolic blood pressure 76 mm[Hg] 76 mm[Hg] [facility] ([facility]) Body height 64 [in_i] 64 [in_i] [facility] ([facility]) Body mass index (BMI) [Ratio] 22.9 kg/m2 22.9 k g/m2 [facility] ([facility]) Systolic blood pressure 113 mm[Hg] 113 mm[Hg] [facility] Body weight 2137.6 [oz_av] 2137.6 [oz_av] ATHEN A ([facility]) Diastolic blood pressure 76 mm[Hg] 76 mm[Hg] [facility] ([facility]) Body height 64 [in_i] 64 [in_i] [facility] ([facility]) Body mass index (BMI) [Ratio] 22.9 kg/m2 22.9 k g/m2 [facility] ([facility]) Systolic blood pressure 113 mm[Hg] 113 mm[Hg] A [facility] ([facility]) Body weight 2137.6 [oz_av] 2137.6 [oz_av] ATHEN A ([facility]) Diastolic blood pressure 76 mm[Hg] 76 mm[Hg] [facility] ([facility]) Body height 64 [in_i] 64 [in_i] [facility] ([facility]) Body mass index (BMI) [Ratio] 22.9 kg/m2 22.9 k g/m2 [facility] ([facility]) Systolic blood pressure 113 mm[Hg] 113 mm[Hg] [facility] Body weight 2137.6 [oz_av] 2137.6 [oz_av] ATHEN A ([facility]) Body mass index (BMI) [Ratio] 22.9 kg/m2 22.9 k g/m2 [facility] ([facility]) Body weight 2137.6 [oz_av] 2137.6 [oz_av] ATHEN A ([facility]) Systolic blood pressure 113 mm[Hg] 113 mm[Hg] [facility] Diastolic blood pressure 76 mm[Hg] 76 mm[Hg] [facility] ([facility]) Body height 64 [in_i] 64 [in_i] [facility] ([facility]) Diastolic blood pressure 76 mm[Hg] 76 mm[Hg] [facility] ([facility]) Body height 64 [in_i] 64 [in_i] [facility] ([facility]) Body mass index (BMI) [Ratio] 22.9 kg/m2 22.9 k g/m2 [facility] ([facility]) Systolic blood pressure 113 mm[Hg] 113 mm[Hg] A [facility] ([facility]) Body weight 2137.6 [oz_av] 2137.6 [oz_av] [facility] [facility] Diastolic blood pressure 76 mm[Hg] 76 mm[Hg] ESTHELA ([facility]) Body height 64 [in_i] 64 [in_i] ESTHELA ([facility]) Body mass index (BMI) [Ratio] 22.9 kg/m2 22.9 k g/m2 ESTHELA ([facility]) Systolic blood pressure 113 mm[Hg] 113 mm[Hg] A THENA ([facility]) Body weight 2137.6 [oz_av] 2137.6 [oz_av] ATHEN A ([facility]) Diastolic blood pressure 76 mm[Hg] 76 mm[Hg] ESTHELA ([facility]) Body height 64 [in_i] 64 [in_i] ESTHELA ([facility]) Body mass index (BMI) [Ratio] 22.9 kg/m2 22.9 k g/m2 ESTHELA ([facility]) Systolic blood pressure 113 mm[Hg] 113 mm[Hg] A THENA ([facility]) Body weight 2137.6 [oz_av] 2137.6 [oz_av] ATHEN A ([facility]) Body height 162.56 cm 162.56 cm [facility] ([facility]) Body mass index (BMI) [Ratio] 23.86 kg/m2 23.86 kg/m2 [facility] ([facility]) Body weight 63.049 kg 63.049 kg [facility] ([facility]) Systolic blood pressure 110 mm[Hg] 110 mm[Hg] N [facility] ([facility]) Diastolic blood pressure 74 mm[Hg] 74 mm[Hg] [facility] ([facility]) ID Date Data Source [id number] 03/18/2020 03:28:22 PM [facility] Name Value Range Interpretation Code Description Data Source(s) WEIGHT RECORDED 137.10 pounds 137.10 pounds [facility] Height 64 Inches 064 Inches [facility] Patient Treatment Plan of Care Planned Activity Planned Date Details Description Data Source (s) Vitamins Plus Low Iron 27 mg iron-1 mg tablet 09/23/2020 12:00:00 AM [facility] Prena1 True 30 mg iron-1.4 mg-300 mg oral pack 04/09/2020 12:00:00 AM EST [facility] ([facility]) Azithromycin 500 MG Oral Tablet 04/09/2020 12:00:00 AM EST [facility]) Apri 0.15 mg-0.03 mg tablet 12/06/2019 12:00:00 AM EDT [facility]) Metronidazole 500 MG Oral Tablet ESTHELA ([facility]) Permethrin 10 MG/ML Medicated Shampoo ESTHELA ([facility]) Escitalopram 20 MG Oral Tablet ESTHELA ([facility]) Escitalopram 10 MG Oral Tablet ESTHELA ([facility]) Azithromycin 500 MG Oral Tablet ESTHELA ([facility]) Metronidazole 500 MG Oral Tablet ESTHELA ([facility]) Permethrin 10 MG/ML Medicated Shampoo ESTHELA ([facility]) Escitalopram 20 MG Oral Tablet ESTHELA ([facility]) Escitalopram 10 MG Oral Tablet ESTHELA ([facility]) Azithromycin 500 MG Oral Tablet ESTHELA ([facility]) Metronidazole 500 MG Oral Tablet ESTHELA ([facility]) Permethrin 10 MG/ML Medicated Shampoo ESTHELA ([facility]) Escitalopram 20 MG Oral Tablet ESTHELA ([facility]) Escitalopram 10 MG Oral Tablet ESTHELA ([facility]) Azithromycin 500 MG Oral Tablet ESTHELA ([facility]) Metronidazole 500 MG Oral Tablet ESTHELA ([facility]) Permethrin 10 MG/ML Medicated Shampoo ESTHELA ([facility]) Escitalopram 20 MG Oral Tablet ESTHELA ([facility]) Escitalopram 10 MG Oral Tablet ESTHELA ([facility]) Azithromycin 500 MG Oral Tablet ESTHELA ([facility]) Metronidazole 500 MG Oral Tablet ESTHELA ([facility]) Permethrin 10 MG/ML Medicated Shampoo ESTHELA ([facility]) Escitalopram 20 MG Oral Tablet ESTHELA ([facility]) Escitalopram 10 MG Oral Tablet ESTHELA ([facility]) Azithromycin 500 MG Oral Tablet ESTHELA ([facility]) Metronidazole 500 MG Oral Tablet ESTHELA ([facility]) Permethrin 10 MG/ML Medicated Shampoo ESTHELA ([facility]) Escitalopram 20 MG Oral Tablet ESTHELA ([facility]) Escitalopram 10 MG Oral Tablet ESTHELA ([facility]) Azithromycin 500 MG Oral Tablet ESTHELA ([facility]) Metronidazole 500 MG Oral Tablet ESTHELA ([facility]) Permethrin 10 MG/ML Medicated Shampoo ESTHELA ([facility]) Escitalopram 20 MG Oral Tablet ESTHELA ([facility]) Escitalopram 10 MG Oral Tablet ESTHELA ([facility]) Azithromycin 500 MG Oral Tablet ESTHELA ([facility]) Metronidazole 500 MG Oral Tablet ESTHELA ([facility]) Permethrin 10 MG/ML Medicated Shampoo ESTHELA ([facility]) Escitalopram 20 MG Oral Tablet ESTHELA ([facility]) Escitalopram 10 MG Oral Tablet ESTHELA ([facility]) Azithromycin 500 MG Oral Tablet ESTHELA ([facility]) Metronidazole 500 MG Oral Tablet ESTHELA ([facility]) Permethrin 10 MG/ML Medicated Shampoo ESTHEAL ([facility]) Escitalopram 20 MG Oral Tablet ESTHELA ([facility]) Escitalopram 10 MG Oral Tablet ESTHELA ([facility]) Azithromycin 500 MG Oral Tablet ESTHELA ([facility]) Escitalopram 10 MG Oral Tablet [Lexapro] [facility] ([facility]) Metronidazole 500 MG Oral Tablet ESTHELA ([facility]) Permethrin 10 MG/ML Medicated Shampoo ESTHELA ([facility]) Escitalopram 20 MG Oral Tablet ESTHELA ([facility]) Escitalopram 10 MG Oral Tablet ESTHELA ([facility]) Azithromycin 500 MG Oral Tablet ESTHELA ([facility]) Metronidazole 500 MG Oral Tablet ESTHELA ([facility]) Escitalopram 10 MG Oral Tablet ESTHELA ([facility]) Azithromycin 500 MG Oral Tablet ESTHELA ([facility]) Metronidazole 500 MG Oral Tablet ESTHELA ([facility]) Azithromycin 500 MG Oral Tablet ESTHELA ([facility])
[2021-01-25 21:41] LABS: GC DNA AMPLIFICATION NEGATIVE (NEGATIVE)
== END 2021-01-25 20:42 | disposition home or self-care (01) ==
LOC: M ED 19:25
DX: Z32.02 Encounter for pregnancy test, result negative (principal); R39.15 Urgency of urination; F17.210 Nicotine dependence, cigarettes, uncomplicated

== ENCOUNTER 2021-03-16 19:30 | Emergency (ER) | payer OTHER ==
[~2021-03-16] VITALS: Ht 162.6 cm; Wt 50.3 kg
[~2021-03-16 19:30] MED LIST changes: -CEFD1CAP8; +CEFD300C41; +OMEP-173; -OMEP-218
[2021-03-16 20:57] VITALS: BP 123/82
== END 2021-03-16 20:58 | disposition home or self-care (01) ==
LOC: M ED 19:30
DX: Z32.01 Encounter for pregnancy test, result positive (principal); F17.210 Nicotine dependence, cigarettes, uncomplicated

== ENCOUNTER 2021-04-01 17:16 | Emergency (ER) | payer OTHER ==
[~2021-04-01] VITALS: Ht 162.6 cm; Wt 52.6 kg
[~2021-04-01 17:16] MED LIST changes: +CEFD1CAP8; -CEFD300C41; -OMEP-173; +OMEP-218
[2021-04-02 05:19] LABS: BASO % 0.3 % (0.0-1.0); EOS # 0.3 10^3/uL (0.0-0.5); EOS % 3.9 % (0.0-3.0); HEMATOCRIT 37.2 % (36.0-47.0); HEMOGLOBIN 12.7 g/dl (12.0-15.5); LYMPH # 2.5 10^3/uL (1.5-5.0); LYMPH % 33.2 % (24.0-44.0); MEAN CORPUSCULAR HEMOGLOBIN 31.1 pg (27.0-33.0); MEAN CORPUSCULAR HGB CONC 34.1 g/dl (32.0-36.5); MONO # 0.5 10^3/uL (0.0-0.8); MONO % 6.3 % (2.0-8.0); NEUTROPHILS # 4.2 10^3/uL (1.5-8.5); PLATELET COUNT, AUTOMATED 185 10^3/uL (150-450); RED BLOOD COUNT 4.09 10^6/uL (4.00-5.40); WHITE BLOOD COUNT 7.4 10^3/uL (4.0-10.0)
[2021-04-02 08:50] VITALS: BP 102/55
== END 2021-04-02 09:16 | disposition home or self-care (01) ==
LOC: M ED 17:16
DX: O99.891 Other specified diseases and conditions complicating pregnancy (principal); R55 Syncope and collapse; Z87.891 Personal history of nicotine dependence; O99.321 Drug use complicating pregnancy, first trimester; F12.20 Cannabis dependence, uncomplicated; Z3A.00 Weeks of gestation of pregnancy not specified

== ENCOUNTER → 2021-04-21 | Outpatient (CLI) | payer OTHER ==
[~2021-04-21] MED LIST changes: -CEFD1CAP8; +CEFD300C41; +OMEP-173; -OMEP-218
[2021-04-21 13:51] LABS: BASO % 0.3 % (0.0-1.0); EOS # 0.2 10^3/uL (0.0-0.5); EOS % 2.7 % (0.0-3.0); HEMATOCRIT 34.6 % (36.0-47.0); HEMOGLOBIN 11.6 g/dl (12.0-15.5); LYMPH # 1.5 10^3/uL (1.5-5.0); MEAN CORPUSCULAR HEMOGLOBIN 31.4 pg (27.0-33.0); MEAN CORPUSCULAR HGB CONC 33.5 g/dl (32.0-36.5); MEAN CORPUSCULAR VOLUME 93.5 fl (80.0-96.0); MONO # 0.5 10^3/uL (0.0-0.8); MONO % 5.5 % (2.0-8.0); NEUTROPHILS # 6.6 10^3/uL (1.5-8.5); NEUTROPHILS % 74.3 % (36.0-66.0); PLATELET COUNT, AUTOMATED 212 10^3/uL (150-450); WHITE BLOOD COUNT 8.9 10^3/uL (4.0-10.0)
[2021-04-21 15:08] LABS: HEPATITIS C VIRUS ABY INDEX < 0.0 INDEX (<0.8); HIV 1&2 SCREEN CENTAUR NEGATIVE (NEGATIVE)
[2021-04-21 15:46] LABS: GC DNA AMPLIFICATION NEGATIVE (NEGATIVE)
== END ==
LOC: M PLALAB 10:25
PROVIDERS: ATTEND Advanced Practice Midwife
DX: Z34.91 Encounter for supervision of normal pregnancy, unspecified, first trimester (principal)

== ENCOUNTER 2021-05-14 09:53 | Emergency (ER) | payer OTHER ==
[~2021-05-14] VITALS: Ht 162.6 cm; Wt 56.8 kg
[2021-05-14 10:52] LABS: HEMATOCRIT 37.5 % (36.0-47.0); HEMOGLOBIN 12.8 g/dl (12.0-15.5)
[2021-05-14 16:08] VITALS: BP 98/67
== END 2021-05-14 16:30 | disposition home or self-care (01) ==
LOC: M ED 09:53
DX: O03.9 Complete or unspecified spontaneous abortion without complication (principal); Z3A.12 12 weeks gestation of pregnancy; F17.210 Nicotine dependence, cigarettes, uncomplicated

== ENCOUNTER 2021-06-15 13:54 | Emergency (ER) | payer OTHER ==
[~2021-06-15] VITALS: Ht 162.6 cm; Wt 56.8 kg
[2021-06-15 14:49] LABS: BASO % 0.4 % (0.0-1.0); EOS # 0.2 10^3/uL (0.0-0.5); EOS % 1.8 % (0.0-3.0); HEMATOCRIT 40.3 % (36.0-47.0); HEMOGLOBIN 13.4 g/dl (12.0-15.5); LYMPH # 1.3 10^3/uL (1.5-5.0); LYMPH % 15.4 % (24.0-44.0); MEAN CORPUSCULAR HEMOGLOBIN 30.4 pg (27.0-33.0); MEAN CORPUSCULAR HGB CONC 33.3 g/dl (32.0-36.5); MEAN CORPUSCULAR VOLUME 91.4 fl (80.0-96.0); MONO # 0.3 10^3/uL (0.0-0.8); MONO % 3.7 % (2.0-8.0); NEUTROPHILS # 6.6 10^3/uL (1.5-8.5); NEUTROPHILS % 78.3 % (36.0-66.0); PLATELET COUNT, AUTOMATED 222 10^3/uL (150-450); RED BLOOD COUNT 4.41 10^6/uL (4.00-5.40); WHITE BLOOD COUNT 8.4 10^3/uL (4.0-10.0)
[2021-06-15 15:17] LABS: BLOOD UREA NITROGEN 12 MG/DL (7-18); CALCIUM LEVEL 9.3 MG/DL (8.5-10.1); CARBON DIOXIDE LEVEL 23 MEQ/L (21-32); CHLORIDE LEVEL 109 MEQ/L (98-107); GLOMERULAR FILTRATION RATE > 60.0 (>60); GLUCOSE, FASTING 69 MG/DL (70-100); HCG, SERUM QUANTITATIVE < 1.0 MIU/ML; SODIUM LEVEL 140 MEQ/L (136-145)
[2021-06-15 17:34] LABS: GC DNA AMPLIFICATION NEGATIVE (NEGATIVE)
[2021-06-15] MEDS ORDERED: cefTRIAXone SOD 250MG VIAL (J0696 PER 250MG) IM ONE (17:45)
[2021-06-15] MEDS ORDERED: LIDOCAINE 1% SDV 5ML VIAL DILUENT ONE (17:45)
[2021-06-15 18:30] VITALS: BP 115/75
== END 2021-06-15 18:41 | disposition home or self-care (01) ==
LOC: M ED 13:54
DX: N80.9 Endometriosis, unspecified (principal); N76.0 Acute vaginitis; F17.210 Nicotine dependence, cigarettes, uncomplicated; F12.20 Cannabis dependence, uncomplicated
CPT/HCPCS: 36415; 76830; 76856; 80048; 81001; 84702; 85025; 86850; 86900; 86901; 87210; 87661; 93976; 96372; 99284; J0696

== ENCOUNTER 2022-03-09 08:45 | Emergency (ER) | payer OTHER ==
[~2022-03-09] VITALS: Ht 162.6 cm; Wt 53.7 kg
[2022-03-09] MEDS ORDERED: ACETAMINOPHEN 325 MG TAB PO ONE (11:35)
[2022-03-09 12:56] VITALS: BP 114/58
[2022-03-09 12:59] LABS: BASO % 0.4 % (0.0-1.0); EOS # 0.2 10^3/uL (0.0-0.5); EOS % 2.4 % (0.0-3.0); HEMATOCRIT 36.9 % (36.0-47.0); HEMOGLOBIN 12.3 g/dl (12.0-15.5); LYMPH # 1.4 10^3/uL (1.5-5.0); MEAN CORPUSCULAR HEMOGLOBIN 31.1 pg (27.0-33.0); MEAN CORPUSCULAR HGB CONC 33.3 g/dl (32.0-36.5); MEAN CORPUSCULAR VOLUME 93.4 fl (80.0-96.0); MONO # 0.3 10^3/uL (0.0-0.8); MONO % 4.7 % (2.0-8.0); NEUTROPHILS # 4.9 10^3/uL (1.5-8.5); NEUTROPHILS % 72.1 % (36.0-66.0); PLATELET COUNT, AUTOMATED 179 10^3/uL (150-450); RED BLOOD COUNT 3.95 10^6/uL (4.00-5.40); WHITE BLOOD COUNT 6.8 10^3/uL (4.0-10.0)
== END 2022-03-09 13:57 | disposition home or self-care (01) ==
LOC: M ED 08:45
DX: O26.891 Other specified pregnancy related conditions, first trimester (principal); M54.50 Low back pain, unspecified; W10.8XXA Fall (on) (from) other stairs and steps, initial encounter; R51.9 Headache, unspecified; F12.10 Cannabis abuse, uncomplicated; Z3A.09 9 weeks gestation of pregnancy

== ENCOUNTER → 2022-03-13 | Outpatient (CLI) | payer OTHER ==
[2022-03-13 16:24] LABS: HIV 1&2 SCREEN CENTAUR NEGATIVE (NEGATIVE)
[2022-03-13 16:32] LABS: HEPATITIS C VIRUS ABY INDEX 0.1 INDEX (<0.8)
[2022-03-13 16:49] LABS: GC DNA AMPLIFICATION NEGATIVE (NEGATIVE)
== END ==
LOC: M PLALAB 10:53
PROVIDERS: ATTEND Advanced Practice Midwife
DX: Z34.81 Encounter for supervision of other normal pregnancy, first trimester (principal); Z3A.10 10 weeks gestation of pregnancy

== ENCOUNTER 2022-04-11 12:11 | Emergency (ER) | payer OTHER, SELFPAY ==
[~2022-04-11] VITALS: Ht 162.6 cm; Wt 54.8 kg
[2022-04-11 12:45] VITALS: O2SAT 98
[2022-04-11 15:28] VITALS: BP 123/69
== END 2022-04-11 15:30 | disposition home or self-care (01) ==
LOC: M ED 12:11
DX: O98.512 Other viral diseases complicating pregnancy, second trimester (principal); U07.1 COVID-19; Z20.822 Contact with and (suspected) exposure to COVID-19; Z3A.14 14 weeks gestation of pregnancy

== ENCOUNTER → 2022-05-15 | Outpatient (CLI) | payer OTHER | LOC: M WHC 08:40 | PROVIDERS: ATTEND Advanced Practice Midwife | DX: Z34.02 Encounter for supervision of normal first pregnancy, second trimester (principal); Z3A.18 18 weeks gestation of pregnancy ==

== ENCOUNTER 2022-06-21 22:22 | Outpatient (CLI) | payer OTHER ==
[2022-06-21 22:32] VITALS: BP 125/79
[2022-06-21 22:33] VITALS: BP 125/79
[2022-06-21] MEDS ORDERED: MACR100C43 PO (23:31)
[2022-06-21 23:41] VITALS: BP 126/79
[2022-06-22] MEDS ORDERED: NITROFURANTOIN (MACROBID) 100 MG CAP PO ONE
== END 2022-06-21 23:40 | disposition home or self-care (01) ==
LOC: M LDO 22:22
PROVIDERS: ATTEND Obstetrics & Gynecology
DX: O26.892 Other specified pregnancy related conditions, second trimester (principal); R25.2 Cramp and spasm; R10.2 Pelvic and perineal pain; Z3A.24 24 weeks gestation of pregnancy
CPT/HCPCS: 59025; 81001; 87086; G0463

== ENCOUNTER → 2022-07-08 | Outpatient (CLI) | payer OTHER ==
[2022-07-08 13:56] LABS: HEMATOCRIT 35.3 % (36.0-47.0); HEMOGLOBIN 11.8 g/dl (12.0-15.5); MEAN CORPUSCULAR HEMOGLOBIN 31.7 pg (27.0-33.0); MEAN CORPUSCULAR HGB CONC 33.4 g/dl (32.0-36.5); MEAN CORPUSCULAR VOLUME 94.9 fl (80.0-96.0); PLATELET COUNT, AUTOMATED 221 10^3/uL (150-450); RED BLOOD COUNT 3.72 10^6/uL (4.00-5.40); WHITE BLOOD COUNT 9.2 10^3/uL (4.0-10.0)
[2022-07-08 16:08] LABS: GC DNA AMPLIFICATION NEGATIVE (NEGATIVE)
== END ==
LOC: M PLALAB 08:55
PROVIDERS: ATTEND Obstetrics & Gynecology
DX: Z34.02 Encounter for supervision of normal first pregnancy, second trimester (principal)

== ENCOUNTER → 2022-07-09 | Outpatient (CLI) | payer OTHER | LOC: M RAD 13:22 | PROVIDERS: ATTEND Obstetrics & Gynecology | DX: Z34.02 Encounter for supervision of normal first pregnancy, second trimester (principal); Z3A.27 27 weeks gestation of pregnancy ==

== ENCOUNTER → 2022-08-20 | Outpatient (REF) | payer OTHER | LOC: M PLALAB 10:07 | PROVIDERS: ATTEND Obstetrics & Gynecology | DX: R82.90 Unspecified abnormal findings in urine (principal) ==

== ENCOUNTER → 2022-09-04 | Outpatient (REF) | payer OTHER | LOC: M SFHCWAGY 13:03 | PROVIDERS: ATTEND Advanced Practice Midwife | DX: Z36.85 Encounter for antenatal screening for Streptococcus B (principal) ==

== ENCOUNTER → 2022-09-07 | Outpatient (CLI) | payer OTHER | LOC: M WHC 08:40 | PROVIDERS: ATTEND Obstetrics & Gynecology | DX: O36.5990 Maternal care for other known or suspected poor fetal growth, unspecified trimester, not applicable or unspecified (principal) ==

== ENCOUNTER → 2022-09-14 | Outpatient (CLI) | payer OTHER | LOC: M WHC 12:04 | PROVIDERS: ATTEND Advanced Practice Midwife | DX: O36.5990 Maternal care for other known or suspected poor fetal growth, unspecified trimester, not applicable or unspecified (principal) ==

== ENCOUNTER 2022-09-17 17:25 | Inpatient (IN) | payer OTHER ==
[2022-09-17] VITALS (9 sets, daily range): BP systolic 108–168; BP diastolic 62–105
[~2022-09-17] VITALS: Ht 162.6 cm; Wt 65.8 kg
[2022-09-17] MEDS ORDERED: PRENTAB9 PO (18:00)
[2022-09-17] MEDS ORDERED: LEXA1TAB PO (18:00)
[2022-09-17] MEDS ORDERED: HOME MED LIST COMPLETE! XX SCH (18:00)
[2022-09-17] MEDS ORDERED: TRANEXAMIC ACID INJection 1,000 MG in NS 100 ML IV PRN (18:30)
[2022-09-17 18:41] LABS: HEMATOCRIT 31.8 % (36.0-47.0); HEMOGLOBIN 10.8 g/dl (12.0-15.5); MEAN CORPUSCULAR HEMOGLOBIN 29.8 pg (27.0-33.0); MEAN CORPUSCULAR VOLUME 87.6 fl (80.0-96.0); PLATELET COUNT, AUTOMATED 197 10^3/uL (150-450); RED BLOOD COUNT 3.63 10^6/uL (4.00-5.40); WHITE BLOOD COUNT 9.4 10^3/uL (4.0-10.0)
[2022-09-17] MEDS: miSOPROStol 50MCG 1/2 TABLET PO SCH (20:23)
[2022-09-18] VITALS (49 sets, daily range): BP systolic 89–140; BP diastolic 54–89; O2SAT 99
[2022-09-18] MEDS: miSOPROStol 50MCG 1/2 TABLET PO SCH (01:16)
[2022-09-18] MEDS ORDERED: OXYTOCIN DRIP 30 UNITS in IV 1 EA IV SCH (01:40)
[2022-09-18] MEDS: LR 1,000 ML IV SCH ×2 (06:00→18:23)
[2022-09-18] MEDS ORDERED: diphenhydrAMINE 50MG/ML VIAL IV PRN (08:50)
[2022-09-18] MEDS ORDERED: LR 500 ML IV PRN (08:50)
[2022-09-18] MEDS ORDERED: EPIDURAL/PCA KEYS XX PRN (08:50)
[2022-09-18] MEDS ORDERED: ONDANSETRON 4MG 2ML VIAL IV PRN (08:50)
[2022-09-18] MEDS ORDERED: NALOXONE INJ 0.4MG/1ML VIAL IV PRN (08:50)
[2022-09-18] MEDS ORDERED: FENTANYL 2MCG/ML ROPIVACAINE 0.2% IN 0.9% NACL 100ML IVBAG As Ordered ONE (08:50)
[2022-09-18] MEDS ORDERED: ePHEDrine SULFATE 25 MG/5 ML(5MG/ML) SYRINGE IVP PRN (08:50)
[2022-09-18] MEDS: FENTANYL/ROPIVACAINE/NACL BAG 100 ML EPIDURAL SCH ×2 (09:23→18:44)
[2022-09-18 19:32] LABS: CORD GAS ABE A -5.3; CORD GAS ABE V -2.3; CORD GAS HCO3 A 22.8 MMOL/L; CORD GAS HCO3 V 22.1 MMOL/L; CORD GAS O2 SAT A < 15.0 %; CORD GAS O2 SAT V 53.2 %; CORD GAS PCO2 A 54.4 mmHg; CORD GAS PCO2 V 37.3 mmHg; CORD GAS PH A 7.241 UNITS; CORD GAS PH V 7.39 UNITS; CORD GAS PO2 A > 700.0 mmHg; CORD GAS PO2 V 20.9 mmHg; CORD GAS SBC V 21.4 MMOL/L; CORD GAS TCO2 A 24.5 MMOL/L; CORD GAS TCO2 V 23.2 MMOL/L
[2022-09-18] MEDS ORDERED: ACETAMINOPHEN TAB 650MG DOSE (2X325MG) PO PRN (19:35)
[2022-09-18] MEDS ORDERED: RHOGAM 300MCG (1500IU) INJ IM SCH (19:35)
[2022-09-18] MEDS ORDERED: IBUPROFEN 600MG TAB PO PRN (19:35)
[2022-09-18] MEDS ORDERED: ANUSOL HC CREAM 30GM TOP PRN (19:35)
[2022-09-18] MEDS ORDERED: DOCUSATE SODIUM 100MG CAPSULE PO PRN (19:35)
[2022-09-18] MEDS ORDERED: IBUPROFEN 800 MG TAB PO PRN (19:35)
[2022-09-18] MEDS ORDERED: ACETAMINOPHEN 500 MG TAB PO PRN (19:35)
[2022-09-18] MEDS ORDERED: METHYLERGONOVINE MALEATE 0.2 MG TAB PO PRN (19:35)
[2022-09-18] MEDS ORDERED: DIBUCAINE 1% OINTMENT 30GM TOP PRN (19:35)
[2022-09-18] MEDS ORDERED: MOM 30ML SUSPENSION UDC PO PRN (19:35)
[2022-09-19 05:50] VITALS: BP 111/65; O2SAT 98
[2022-09-19] MEDS: PRENATAL VITAMINS CHEWABLE TABLET PO SCH (09:00)
[2022-09-19 18:00] VITALS: BP 119/76; O2SAT 99
[2022-09-20 06:00] VITALS: BP 120/76; O2SAT 99
[2022-09-20] MEDS ORDERED: MEASLES,MUMPS,RUBELLA VACCINE INJ (MMR-II) SC.IMMUN ONE (09:00)
[2022-09-20] MEDS: PRENATAL VITAMINS CHEWABLE TABLET PO SCH (09:20)
[2022-09-20] MEDS ORDERED: IBUP-1022 PO (10:58)
[2022-09-20] MEDS ORDERED: ACET-683 PO (10:58)
[2022-09-20] MEDS ORDERED: COLA100C5 PO (10:58)
== END 2022-09-20 18:00 | disposition home or self-care (01) | DRG 560 ==
LOC: M LDI 17:25 → M OBS 09-18 21:15
PROVIDERS: ADMIT Obstetrics & Gynecology; ATTEND Advanced Practice Midwife
PROC: 3E0P7GC Introduction of Other Therapeutic Substance into Female Reproductive, Via Natural or Artificial Opening (ICD-10-PCS; 2022-09-17)
PROC: 10E0XZZ Delivery of Products of Conception, External Approach (ICD-10-PCS; principal; 2022-09-18)
PROC: 10907ZC Drainage of Amniotic Fluid, Therapeutic from Products of Conception, Via Natural or Artificial Opening (ICD-10-PCS; 2022-09-18)
DX: O36.5930 Maternal care for other known or suspected poor fetal growth, third trimester, not applicable or unspecified (principal); O69.81X0 Labor and delivery complicated by cord around neck, without compression, not applicable or unspecified; Z3A.37 37 weeks gestation of pregnancy; Z37.0 Single live birth

== ENCOUNTER → 2022-10-08 | Outpatient (REF) | payer OTHER ==
[~2022-10-08] MED LIST changes: +ACET-683 PO; +COLA100C5 PO; +IBUP-1022 PO; +LEXA1TAB PO; +PRENTAB9 PO
== END ==
LOC: M LAB REF 20:57
PROVIDERS: ATTEND Physician Assistant
DX: J02.9 Acute pharyngitis, unspecified (principal)

== ENCOUNTER → 2022-12-15 | Outpatient (CLI) | payer OTHER | LOC: M CARPUL 12:42 | PROVIDERS: ATTEND Nurse Practitioner Family | DX: R01.1 Cardiac murmur, unspecified (principal) ==

== ENCOUNTER → 2022-12-29 | Outpatient (REF) | payer OTHER | LOC: M PLALAB 10:43 | PROVIDERS: ATTEND Advanced Practice Midwife | DX: Z12.4 Encounter for screening for malignant neoplasm of cervix (principal) ==

== ENCOUNTER 2023-06-25 17:49 | Emergency (ER) | payer MEDICAID, OTHER, SELFPAY ==
[~2023-06-25] VITALS: Ht 162.6 cm; Wt 63.8 kg
[~2023-06-25 17:49] MED LIST changes: +CEFD1CAP9; -CEFD300C41
[2023-06-25 18:02] VITALS: BP 111/54; TEMP 98.1; O2SAT 98
[2023-06-25] MEDS: DERMABOND TOPICAL SKIN ADHESIVE TOP ONE (18:20)
== END 2023-06-25 18:53 | disposition home or self-care (01) ==
LOC: M ED 17:49
DX: S61.211A Laceration without foreign body of left index finger without damage to nail, initial encounter (principal); W26.0XXA Contact with knife, initial encounter; Y92.009 Unspecified place in unspecified non-institutional (private) residence as the place of occurrence of the external cause; Y93.G3 Activity, cooking and baking; Y99.9 Unspecified external cause status; F17.290 Nicotine dependence, other tobacco product, uncomplicated; Z79.899 Other long term (current) drug therapy

== ENCOUNTER → 2023-06-29 | Outpatient (REF) | payer OTHER | LOC: M LAB REF 21:08 | PROVIDERS: ATTEND Physician Assistant | DX: J03.90 Acute tonsillitis, unspecified (principal) ==

== ENCOUNTER → 2023-10-25 | Outpatient (CLI) | payer OTHER ==
[~2023-10-25] MED LIST changes: +ONDA-282 PO; -ONDA4TAB6 PO
== END ==
LOC: M CARPUL 07:55
PROVIDERS: ATTEND Internal Medicine Cardiovascular Disease
DX: R06.02 Shortness of breath (principal)

== ENCOUNTER 2023-11-20 18:21 | Emergency (ER) | payer OTHER ==
[~2023-11-20] VITALS: Ht 165.1 cm; Wt 54.5 kg
[2023-11-20 18:22] VITALS: BP 119/72; TEMP 97.4; O2SAT 100
== END 2023-11-20 18:30 | disposition left against medical advice (07) ==
LOC: M ED 18:21
DX: Z53.21 Procedure and treatment not carried out due to patient leaving prior to being seen by health care provider (principal)

== ENCOUNTER → 2023-12-09 | Outpatient (REF) | payer OTHER ==
[2023-12-10 13:16] LABS: BASO # 0.1 10^3/uL (0.0-0.2); BASO % 0.7 % (0.0-1.0); EOS # 0.2 10^3/uL (0.0-0.5); EOS % 2.9 % (0.0-3.0); HEMATOCRIT 40.8 % (36.0-47.0); HEMOGLOBIN 13.4 g/dl (12.0-15.5); LYMPH # 2.2 10^3/uL (1.5-5.0); LYMPH % 28.6 % (24.0-44.0); MEAN CORPUSCULAR HEMOGLOBIN 29.8 pg (27.0-33.0); MEAN CORPUSCULAR HGB CONC 32.8 g/dl (32.0-36.5); MEAN CORPUSCULAR VOLUME 90.7 fl (80.0-96.0); MONO # 0.4 10^3/uL (0.0-0.8); MONO % 5.7 % (2.0-8.0); NEUTROPHILS # 4.7 10^3/uL (1.5-8.5); PLATELET COUNT, AUTOMATED 304 10^3/uL (150-450); WHITE BLOOD COUNT 7.6 10^3/uL (4.0-10.0)
[2023-12-10 13:23] LABS: ALKALINE PHOSPHATASE 64 U/L (46-116); ALT/SGPT 18 U/L (7.0-40); AST/SGOT < 8 U/L (<34); BILIRUBIN,TOTAL 0.7 MG/DL (0.3-1.2); BLOOD UREA NITROGEN 18 MG/DL (9-23); CALCIUM LEVEL 9.6 MG/DL (8.5-10.1); CARBON DIOXIDE LEVEL 28 MMOL/L (20-31); CHLORIDE LEVEL 105 MMOL/L (98-107); CHOLESTEROL LEVEL 214 MG/DL (<200); CHOLESTEROL RISK RATIO 2.62 (<5); CREATININE FOR GFR 0.72 MG/DL (0.55-1.30); GLOMERULAR FILTRATION RATE > 60.0 (>60); GLUCOSE, FASTING 92 MG/DL (60-100); HDL CHOLESTEROL 81.6 MG/DL (>40); LDL CHOLESTEROL 117.8 MG/DL (<100); MAGNESIUM LEVEL 1.8 MG/DL (1.8-2.4); NON-HDL-C 132.4 MG/DL; SODIUM LEVEL 138 MMOL/L (136-145); TOTAL PROTEIN 7.3 G/DL (5.7-8.2); TRIGLYCERIDES LEVEL 73 MG/DL (<150)
[2023-12-10 13:26] LABS: THYROID STIMULATING HORMONE 0.593 uIU/ML (0.55-4.78)
[2023-12-10 14:52] LABS: HEMOGLOBIN A1c 4.8 % (4.0-6.0)
== END ==
LOC: M LAB REF 12:23
PROVIDERS: ATTEND Nurse Practitioner Family
DX: Z13.1 Encounter for screening for diabetes mellitus (principal); Z13.29 Encounter for screening for other suspected endocrine disorder; Z13.220 Encounter for screening for lipoid disorders; E55.9 Vitamin D deficiency, unspecified

== ENCOUNTER → 2024-08-02 | Outpatient (REF) | payer OTHER ==
[~2024-08-02] MED LIST changes: -CYPR4TA PO; +CYPR4TAB36 PO; -SIME180C25 PO; +SIME1CAP4 PO
[2024-08-02 18:19] LABS: ALBUMIN 3.9 G/DL (3.2-5.2); ALKALINE PHOSPHATASE 45 U/L (35-104); ALT/SGPT 12 U/L (7.0-40); AST/SGOT 9 U/L (<34); BILIRUBIN,TOTAL 0.6 MG/DL (0.3-1.2); BLOOD UREA NITROGEN 10 MG/DL (9-23); CALCIUM LEVEL 9.5 MG/DL (8.5-10.1); CARBON DIOXIDE LEVEL 27 MMOL/L (20-31); CHLORIDE LEVEL 106 MMOL/L (98-107); CHOLESTEROL LEVEL 184 MG/DL (<200); CREATININE FOR GFR 0.79 MG/DL (0.55-1.30); GLOMERULAR FILTRATION RATE > 90.0 (>60); GLUCOSE, FASTING 96 MG/DL (60-100); HDL CHOLESTEROL 57.4 MG/DL (>40); LDL CHOLESTEROL 96.4 MG/DL (<100); NON-HDL-C 126.6 MG/DL; POTASSIUM SERUM 4.4 MMOL/L (3.5-5.1); SODIUM LEVEL 143 MMOL/L (136-145); TRIGLYCERIDES LEVEL 151 MG/DL (<150)
== END ==
LOC: M LAB REF 17:22
PROVIDERS: ATTEND Nurse Practitioner Family
DX: Z13.220 Encounter for screening for lipoid disorders (principal)

== ENCOUNTER → 2024-10-23 | Outpatient (REF) | payer OTHER ==
[~2024-10-23] MED LIST changes: +CYCL5TAB4 PO; +MAGN500T2
[2024-10-23 22:08] LABS: APPEARANCE, URINE MANUAL CLOUDY (CLEAR); COLOR, URINE MANUAL YELLOW (YELLOW); GLUCOSE, URINE (UA) MANUAL NEGATIVE (NEGATIVE); KETONE, URINE MANUAL 1+ mg/dL (NEGATIVE); PH,URINE MAN 5.0 UNITS (5.0 - 7.0); PROTEIN, URINE MANUAL 1+ mg/dL (NEGATIVE); SPECIFIC GRAVITY,URINE MANUAL 1.020 (1.002-1.035); UROBILINOGEN, URINE MANUAL NORMAL (NORMAL)
[2024-10-23 22:09] LABS: BILIRUBIN, URINE MANUAL NEGATIVE (NEGATIVE); BLOOD URINE MANUAL POSITIVE (NEGATIVE); LEUKOCYTE ESTERASE, URINE MAN POSITIVE (NEGATIVE); NITRITE, URINE MANUAL NEGATIVE (NEGATIVE)
[2024-10-23 22:11] LABS: WBC, URINE 30-40 /hpf (0-3)
[2024-10-23 22:13] LABS: BACTERIA, URINE SMALL AMOUNT; HYALINE CAST, URINE NONE SEEN /lpf (0-1); SQUAMOUS EPITHELIAL CELL URINE SMALL AMOUNT /hpf (SMALL AMT); URINE PREG TEST NEGATIVE (NEGATIVE)
== END ==
LOC: M LAB REF 21:38
DX: N39.0 Urinary tract infection, site not specified (principal)

== ENCOUNTER 2025-01-15 08:37 | Emergency (ER) | payer OTHER ==
[~2025-01-15] VITALS: Ht 162.6 cm; Wt 54.0 kg
[~2025-01-15 08:37] MED LIST changes: -IBUP-1022 PO; +IBUP600T42 PO
[2025-01-15] MEDS ORDERED: BENZ7GEL3 MM (09:12)
[2025-01-15] MEDS ORDERED: KETO-204 PO (09:12)
[2025-01-15] MEDS ORDERED: AMOX875T2 PO (09:12)
[2025-01-15 10:17] LABS: HCG, SERUM QUALITATIVE NEGATIVE (NEGATIVE)
[2025-01-15 10:34] VITALS: BP 132/77; TEMP 98.1; O2SAT 98
[2025-01-15] MEDS: AUGMENTIN 875 MG TAB PO ONE (10:47)
[2025-01-15] MEDS: KETOROLAC TROMETHAMINE 10 MG TAB PO ONE (10:47)
== END 2025-01-15 10:51 | disposition home or self-care (01) ==
LOC: M ED 08:37
DX: K08.89 Other specified disorders of teeth and supporting structures (principal); Z79.2 Long term (current) use of antibiotics; Z79.899 Other long term (current) drug therapy